=== PATIENT | female | born 1965 | race African-American/Black ===

== ENCOUNTER 2016-12-12 20:46 | Emergency (ER) | payer SELFPAY ==
[~2016-12-12] VITALS: Ht 160 cm; Wt 53.5 kg
[2016-12-12] MEDS ORDERED: METF500T4 PO (21:04)
[2016-12-12] MEDS ORDERED: MULT-301 PO (21:04)
[2016-12-12] MEDS ORDERED: LISI10TA2 PO (21:04)
[2016-12-12] MEDS ORDERED: INSU100V5 SQ (21:05)
[2016-12-12] MEDS ORDERED: ROPI1TAB2 PO (21:05)
[2016-12-12] MEDS ORDERED: KETOROLAC 30 MG/ML VIAL IM STA (21:25)
--- NOTE | 2016-12-12 21:25 | ED Lower Extremity ---
General Chief Complaint: Lower Extremity Stated Complaint: RT ANKLE PAIN Nursing Triage Note: c/o R ankle pain x 2 years Nursing Sepsis Screen: No Definite Risk Source: patient Exam Limitations: no limitations History of Present Illness Time seen by provider: 21:16 Initial Comments Patient presents with a history to years ago of having a fracture in her right ankle that was taken care of by Dr. Pagan. It healed well but since then she' s had some falls and this has caused her reinjury and some strain pain in her right ankle. 2 weeks ago she had damaged by x-ray by [facility] and was told there is no fracture. Since that time she's had 3 more falls were she feels that the ankle just gives out underneath her and she is having a lot of pain in her right ankle. She has a history of cocaine addiction is been off it for 35 days and is currently in rehabilitation. She is not asked for pain medicine but [facility] that she would not be allowed to have anymore ibuprofen or Tylenol because they thought she was taking too much of it in combination with her diabetes. Patient is consistent with taking her diabetic medicines. She is not sure A1c is. She states she was taking 400 mg I will Profen twice a day and 650 mg Tylenol twice daily. She has never lasts consciousness nor struck her head. Allergies and Home Medications Allergies Coded Allergies: Penicillins (Verified Allergy, Unknown, 12/12/16) codeine (Verified Allergy, Unknown, 12/12/16) promethazine (Verified Allergy, Unknown, 12/12/16) Home Medications Insulin Determir 1,000 Units/10 Ml Soln, 15 UNITS SQ, (Reported) Lisinopril 10 Mg Tablet, 10 MG PO DAILY, (Reported) Metformin HCl 500 Mg Tablet, 500 MG PO BID, (Reported) Multivitamin 1 Each Tablet, 1 EACH PO, (Reported) Nitrofurantoin Monohyd/M-Cryst 100 Mg Capsule, 1 TAB PO BID for 7 Days, #14 Ref 0 Prescribed by: DOUGLAS GÓMEZ on 12/12/16 2400 Ropinirole HCl 1 Mg Tablet, 1 MG PO, (Reported) Constitutional: No chills, No fever, No malaise Respiratory: No cough, No short of breath Cardiovascular: No chest pain, No edema, No palpitations Gastrointestinal: No abdominal pain, No constipation, No diarrhea, No nausea Genitourinary: No dysuria, No frequency Musculoskeletal: see HPI, joint pain (right ankle), joint swelling (mild) Skin: No pruritus, No rash Past Sdbojqt-Mpggez-Pujpcj Hx Patient Social History Alcohol Use: Denies Use Recreational Drug Use: Yes Drug of Choice: CRACK COCAINE Smoking Status: Current Everyday Smoker Recent Foreign Travel: No Contact w/Someone Who Travel: No Recent Infectious Disease Expo: No Surgeries Surgeries: Breast, Hysterectomy, Orthopedic, Tubal Ligation Cardiovascular Cardiac Disorders: Hypertension Physical Exam Vital Signs Vital Sign - Last 12Hours 12/12/16 21:01 Temp 98.2 Pulse 111 Resp 18 B/P (MAP) 169/86 Pulse Ox 100 Capillary Refill : Less Than 3 Seconds General Appearance: WD/WN, no apparent distress HEENT: PERRL/EOMI, pharynx normal Legs: bilateral leg non-tender, bilateral leg normal inspection, bilateral leg normal range of motion, bilateral leg no evidence of injury Knees: bilateral knee non-tender, bilateral knee normal inspection, bilateral knee normal range of motion, bilateral knee no evidence of injury Ankles: left ankle non-tender, left ankle normal inspection, left ankle normal range of motion, left ankle no evidence of injury, right ankle bone tenderness ( lateral malleolus and anterior calcaneus), right ankle joint effusion (trace), right ankle limited range of motion (limited dorsiflexion secondary to pain), right ankle pain (described as aching), right ankle soft tissue tenderness, right ankle swelling (trace) Reflexes: 3+ knee (R), 3+ knee (L), 3+ ankle (R), 3+ ankle (L) Neurologic/Tendon: normal sensation, normal motor functions, normal tendon functions, responds to pain, no evidence tendon injury Neurologic/Psychiatric: alert, oriented x 3 Skin: normal color, warm/dry Lymphatic: no adenopathy Progress/Results/Core Measures Results/Orders Lab Results Laboratory Tests Test 12/12/16 21:51 12/12/16 22:25 Range/Units White Blood Count 6.5 4.3-11.0 10^3/uL Red Blood Count 3.15 L 4.35-5.85 10^6/uL Hemoglobin 9.9 L 11.5-16.0 G/DL Hematocrit 29 L 35-52 % Mean Corpuscular Volume 91 80-99 FL Mean Corpuscular Hemoglobin 31 25-34 PG Mean Corpuscular Hemoglobin Concent 34 32-36 G/DL Red Cell Distribution Width 12.4 10.0-14.5 % Platelet Count 291 130-400 10^3/uL Mean Platelet Volume 10.8 H 7.4-10.4 FL Sodium Level 139 135-145 MMOL/L Potassium Level 4.1 3.6-5.0 MMOL/L Chloride Level 106 98-107 MMOL/L Carbon Dioxide Level 24 21-32 MMOL/L Anion Gap 9 5-14 MMOL/L Blood Urea Nitrogen 25 H 7-18 MG/DL Creatinine 1.30 0.60-1.30 MG/DL Estimat Glomerular Filtration Rate 52 BUN/Creatinine Ratio 19 Glucose Level 322 H 70-105 MG/DL Calcium Level 9.1 8.5-10.1 MG/DL Urine Color YELLOW Urine Clarity SLIGHTLY CLOUDY Urine pH 6 5-9 Urine Specific [place] 1.015 L 1.016-1.022 Urine Protein 4+ NEGATIVE Urine Glucose (UA) 4+ H NEGATIVE Urine Ketones NEGATIVE NEGATIVE Urine Nitrite POSITIVE H NEGATIVE Urine Bilirubin NEGATIVE NEGATIVE Urine Urobilinogen NORMAL NORMAL MG/DL Urine Leukocyte Esterase 1+ H NEGATIVE Urine RBC (Auto) 2+ H NEGATIVE Urine RBC 0-2 /HPF Urine WBC 10-25 H /HPF Urine Squamous Epithelial Cells 2-5 /HPF Urine Crystals NONE /LPF Urine Bacteria LARGE H /HPF Urine Casts NONE /LPF Urine Mucus NEGATIVE /LPF Urine Culture Indicated YES My Orders Orders - RICO,DOUGLAS J Ankle, Right, 3 Views (12/12/16 21:09) Basic Metabolic Panel (12/12/16 21:25) Cbc No Diff (12/12/16 21:25) Ua Culture If Indicated (12/12/16 21:25) Ketorolac Injection (Toradol Injection) (12/12/16 21:25) Urine Culture (12/12/16 22:25) Vital Signs/I&O Vital Sign - Last 12Hours 12/12/16 12/12/16 21:01 23:31 Temp 98.2 98.2 Pulse 111 111 Resp 18 18 B/P (MAP) 169/86 Pulse Ox 100 100 Blood Pressure Mean: 113 Progress Note : Time: 23:11 Progress Note Sugars are elevated despite her diabetic control. This may contribute to her UTI which may be contributing to her falls. We'll encourage her to follow up with her PCP about that her blood sugar control as well as treat her UTI. Diagnostic Imaging Diagonstic Imaging: Xray Plain Films/CT/US/NM/MRI: ankle (r) Comments NAME: GODFREY ROBERSON [facility] REC#: [id number] PHYSICIAN: DOUGLAS GÓMEZ MD CC: AMADOR MORENO MD; DOUGLAS GÓMEZ Page 1 of 1 RADIOLOGY REPORT VIA [facility]. [place], [place] CC: AMADOR MORENO MD; DOUGLAS GÓMEZ Page 1 of 1 RADIOLOGY REPORT NAME: GODFREY ROBERSON [facility] REC#: [id number] PT STATUS: REG ER : 1965 PHYSICIAN: DOUGLAS GÓMEZ MD ADMIT DATE: 12/12/16/ER Signed Date of Exam: 12/12/16 ANKLE, RIGHT, 3 VIEWS INDICATION: Right ankle pain for the last 2 years. Fell 3 times EXAMINATION: Right ankle dated 12/12/2016 COMPARISONS: None FINDINGS: Three views of the ankle An old appearing fracture of the distal fibula is noted. This appears healed although a vague residual lucency is noted but chronic in appearance. Ankle mortise is intact, talar dome unremarkable. No definite acute fractures appreciated. IMPRESSION: 1. Diffuse chronic change. No acute process is appreciated. Dictated by: Dictated on workstation # [id number] Dict: 12/12/162211 Trans: 12/12/162243 Interpreted by: AMADOR MORENO MD Electronically signed by: AMADOR MORENO MD 12/12/164 Reviewed: Reviewed by Me Departure Impression Impression: Primary Impression: Contusion of ankle Qualified Codes: S90.01XD - Contusion of right ankle, subsequent encounter Additional Impression: UTI (urinary tract infection) Qualified Codes: N30.00 - Acute cystitis without hematuria Disposition: HOME, SELF-CARE Condition: Stable Departure-Patient Inst. Decision time for Depature: 23:12 Referrals: CHRIS BECKWITH APRN (PCP) Primary Care Physician Patient Instructions: Sprain (DC) Add. Discharge Instructions: You should wear your right ankle brace daily and apply ice to the area up to 4 times daily for 20 minutes every time that it hurts. You can also use Tylenol 1000 mg 3 times a day as needed for pain. I suggest the next 2 weeks that to use Naprosyn 2 tablets twice daily scheduled. You also have a urinary tract infection which is probably due to your uncontrolled diabetes. I will put on antibiotics for the next 7 days and then encourage to follow-up with her PCP to get the results of the urine culture in the next 2-3 days. You should also get her blood sugar under better control as this will probably make it very hard to heal wound or bite off a UTI. If you're having new's or worrisome symptoms such as high fevers, nausea vomiting, shortness of breath or chest pain you should return to the ER. All discharge instructions reviewed with patient and/or family. Voiced understanding. Scripts Nitrofurantoin Monohyd/M-Cryst (Macrobid 100 mg Capsule) 100 Mg Capsule 1 TAB PO BID for 7 Days, #14 CAP 0 Refills Prov: DOUGLAS GÓMEZ 12/12/16 Copy Copies To 1: MAJO GRANADOS DO DOUGLAS GÓMEZ Dec 12, 2016 21:25
[2016-12-12 22:02] LABS: MEAN PLATELET VOLUME 10.8 FL (7.4-10.4); RED BLOOD COUNT 3.15 10^6/uL (4.35-5.85); RED CELL DISTRIBUTION WIDTH 12.4 % (10.0-14.5); WHITE BLOOD COUNT 6.5 10^3/uL (4.3-11.0)
--- NOTE | 2016-12-12 22:17 | Diagnostic Imaging Report ---
INDICATION: Right ankle pain for the last 2 years. Fell 3 times EXAMINATION: Right ankle dated 12/12/2016 COMPARISONS: None FINDINGS: Three views of the ankle An old appearing fracture of the distal fibula is noted. This appears healed although a vague residual lucency is noted but chronic in appearance. Ankle mortise is intact, talar dome unremarkable. No definite acute fractures appreciated. IMPRESSION: 1. Diffuse chronic change. No acute process is appreciated. Dictated by: Dictated on workstation # [id number]
[2016-12-12 22:18] LABS: CALCIUM 9.1 MG/DL (8.5-10.1); CREATININE SERUM 1.3 MG/DL (0.60-1.30); POTASSIUM 4.1 MMOL/L (3.6-5.0)
[2016-12-12 22:29] LABS: BILIRUBIN,URINE NEGATIVE (NEGATIVE); KETONES,URINE NEGATIVE (NEGATIVE); LEUKOCYTE ESTERASE ,URINE 1+ (NEGATIVE); NITRITE,URINE POSITIVE (NEGATIVE); PH,URINE 6 (5-9); PROTEIN,URINE 4+ (NEGATIVE); UROBILINOGEN,URINE NORMAL (NORMAL)
[2016-12-12] MEDS ORDERED: NITR-65 PO (23:21)
[2016-12-12 23:31] VITALS: BP 169/86
--- OUTSIDE RECORDS SUMMARY | 2016-12-17 04:55 | XMS REPORT ---
Author CHRIS Peterson [facility] eClinicalWorks Address Unknown Phone Unavailable Care Team Providers Care Lifestyle Block Farmer Name Role Phone CHRIS BECKWITH Unavailable Allergies No Known Allergies Problems Problem Type Condition Code Onset Dates Condition Status Problem Diabetes E11.9 Active Problem Diabetic neuropathy E11.40 Active Problem Dysuria R30.0 Active Problem Anemia D64.9 Active Problem Anxiety F41.9 Active Medications Medication Code System Code Instructions Start Date End Date Status Dosage [place] [facility] 8396-022387 31G X 6 MM Once a day Apr 26, 2016 as directed Results No Known Results Summary Purpose eClinicalWorks Submission
--- OUTSIDE RECORDS SUMMARY | 2016-12-17 04:55 | XMS REPORT ---
Author ROSA M Dietrich [facility] eClinicalWorks Address Unknown Phone Unavailable Care Team Providers Care Events Assistant Name Role Phone ROSA M RIBEIRO Unavailable Allergies, Adverse Reactions, Alerts Substance Reaction Event Type Phenergan nausea Drug Allergy Penicillin V Potassium nausea Drug Allergy Problems Problem Type Condition Code Onset Dates Condition Status Assessment Obstructive chronic bronchitis with acute exacerbation J44.1 Active Assessment Herpes zoster without complication B02.9 Active Problem Diabetes type 2, uncontrolled 250.02 Active Assessment [place] N91.2 Active Medications Medication Code System Code Instructions Start Date End Date Status Dosage Ropinirole HCl [facility] [address]-38 1 MG Orally Once a day 1 tablet 1 to 3 hours before bedtime Ferrous Sulfate [facility] [address]-42 325 (65 Fe) MG Orally Once a day for 7 days, then 2 times daily for 7 days, then 3 times daily as tolerated Mar 22, 2015 1 tablet Lisinopril [facility] [address]-29 10 MG Orally Once a day 1 tablet Simvastatin [facility] [address]-92 20 MG Orally Once a day 1 tablet in the evening Azithromycin [facility] [address]-31 250 MG Orally Once a day for 5 days Mar 22, 2015 2 tablets on the first day, then 1 tablet daily for 4 days Tramadol HCl [facility] [address]-52 50 MG Orally every 6 hrs 1 tablet as needed Acyclovir [facility] [address]-65 800 MG Orally Five times a day for 10 days Mar 22, 2015 1 tablet Latanoprost [facility] [address]-44 0.005 % Ophthalmic Once a day 1 drop into affected eye in the evening Lyrica [facility] [address]-02 100 MG Orally Twice a day 1 capsule Metformin HCl [facility] [address]-22 500 MG Orally Twice a day 1 tablet with meals Mucinex [facility] [address]-57 600 MG Orally every 12 hrs Mar 22, 2015 1 tablet as needed Procedures Procedure Coding System Code Date Office Visit, Est Pt., Level 4 CPT-4 43935 Mar 22, 2015 MEASURE BLOOD OXYGEN LEVEL CPT-4 65273 Mar 22, 2015 Vital Signs Date/Time: Mar 22, 2015 Temperature 97.6 F Weight 144.50 lbs Height 63.50 in Oximetry 99 % Blood Pressure Diastolic 90 mmHg Blood Pressure Systolic 140 mmHg Cardiac Monitoring Heart Rate 98 bpm BMI 25.19 Index Results No Known Results Summary Purpose eClinicalWorks Submission
--- OUTSIDE RECORDS SUMMARY | 2016-12-17 04:55 | XMS REPORT ---
Author ROSA M Dietrich [facility] eClinicalWorks Address Unknown Phone Unavailable Care Team Providers Care Cushion Maker Hand Name Role Phone ROSA M RIBEIRO Unavailable Allergies, Adverse Reactions, Alerts Substance Reaction Event Type Phenergan nausea Drug Allergy Penicillin V Potassium nausea Drug Allergy Problems Problem Type Condition Code Onset Dates Condition Status Assessment Bilateral low back pain without sciatica M54.5 Active Assessment [place]re[place] Z63.4 Active Problem Diabetes type 2, uncontrolled 250.02 Active Medications Medication Code System Code Instructions Start Date End Date Status Dosage Mucinex [facility] [address]-70 600 MG Orally every 12 hrs Mar 22, 2015 1 tablet as needed HydrOXYzine HCl [facility] [address]-21 25 MG Orally every 8 hrs Mar 23, 2015 1 tablet as needed Lyrica [facility] [address]-24 100 MG Orally Twice a day 1 capsule Cymbalta [facility] [address]-26 20 MG Orally Once a day Mar 23, 2015 1 capsule Azithromycin [facility] [address]-67 250 MG Orally Once a day for 5 days Mar 22, 2015 2 tablets on the first day, then 1 tablet daily for 4 days Metformin HCl [facility] [address]-24 500 MG Orally Twice a day 1 tablet with meals Lisinopril [facility] [address]-34 10 MG Orally Once a day 1 tablet Mobic [facility] [address]-88 7.5 MG Orally 2 times a day Mar 23, 2015 1 tablet Ropinirole HCl [facility] [address]-74 1 MG Orally Once a day 1 tablet 1 to 3 hours before bedtime Simvastatin [facility] [address]-55 20 MG Orally Once a day 1 tablet in the evening Ferrous Sulfate [facility] [address]-43 325 (65 Fe) MG Orally Once a day for 7 days, then 2 times daily for 7 days, then 3 times daily as tolerated Mar 22, 2015 1 tablet Acyclovir [facility] [address]-61 800 MG Orally Five times a day for 10 days Mar 22, 2015 1 tablet Latanoprost [facility] [address]-69 0.005 % Ophthalmic Once a day 1 drop into affected eye in the evening Procedures Procedure Coding System Code Date Office Visit, Est Pt., Level 3 CPT-4 07631 Mar 23, 2015 Vital Signs Date/Time: Mar 23, 2015 Temperature 98.9 F Weight 146 lbs Height 63.50 in BMI 25.45 Index Blood Pressure Diastolic 88 mmHg Blood Pressure Systolic 140 mmHg Cardiac Monitoring Heart Rate 118 bpm Results No Known Results Summary Purpose eClinicalWorks Submission
--- OUTSIDE RECORDS SUMMARY | 2016-12-17 04:56 | XMS REPORT ---
Author ROSA M Dietrich [facility] eClinicalWorks Address Unknown Phone Unavailable Care Team Providers Care Robotics Testing Technician Name Role Phone ROSA M RIBEIRO Unavailable Allergies, Adverse Reactions, Alerts Substance Reaction Event Type Phenergan nausea Drug Allergy Penicillin V Potassium nausea Drug Allergy Problems Problem Type Condition Code Onset Dates Condition Status Assessment Diabetic neuropathy E11.40 Active Problem Diabetic neuropathy E11.40 Active Problem Anemia D64.9 Active Problem Diabetes E11.9 Active Assessment Anxiety F41.9 Active Assessment Diabetes E11.9 Active Problem Anxiety F41.9 Active Assessment Anemia D64.9 Active Medications Medication Code System Code Instructions Start Date End Date Status Dosage Latanoprost [facility] [address]-22 0.005 % Ophthalmic Once a day 1 drop into affected eye in the evening Accu-Chek Jennifer [facility] [address]-57 1 Pack In Vitro 3 times a day Apr 25, 2015 glucose testing Metformin HCl [facility] [address]-68 1000 MG Orally Twice a day 1 tablet with meals Ropinirole HCl [facility] [address]-53 1 MG Orally Once a day 1 tablet 1 to 3 hours before bedtime Lyrica [facility] [address]-98 100 MG Orally Twice a day [address] [facility] [address]-39 100 UNIT/ML Subcutaneous Once a day at night Apr 25, 2015 10 units Simvastatin [facility] [address]-62 20 MG Orally Once a day 1 tablet in the evening HydrOXYzine HCl [facility] 51649630332 25 MG Orally every 8 hrs 1 tablet as needed Naproxen [facility] [address]-96 500 MG Orally every 12 hrs as needed for the pain Apr 06, 2015 1 tablet as needed Accu-Chek Jennifer [facility] [address]-18 1 Pack Apr 25, 2015 one device Gabapentin [facility] [address]-31 100 MG Orally Three times a day Apr 25, 2015 1 capsule Lisinopril [facility] [address]-51 10 MG Orally Once a day 1 tablet Ferrous Sulfate [facility] [address]-59 325 (65 Fe) MG Orally Twice a day x 7 days then three times daily if tolerated Mar 22, 2015 1 tablet Procedures Procedure Coding System Code Date Office Visit, Est Pt., Level 3 CPT-4 92244 Apr 25, 2015 FOOT EXAM PERFORMED CPT-4 2028F Apr 25, 2015 GLYCATED HEMOGLOBIN TEST CPT-4 75879 Apr 25, 2015 Vital Signs Date/Time: Apr 25, 2015 Temperature 96.5 F Weight 148 lbs Height 63.50 in BMI 25.80 Index Blood Pressure Diastolic 84 mmHg Blood Pressure Systolic 140 mmHg Cardiac Monitoring Heart Rate 102 bpm Results Name Result Date Reference Range Unit Abnormality Flag A1C (IN HOUSE) Summary Purpose eClinicalWorks Submission
--- OUTSIDE RECORDS SUMMARY | 2016-12-17 04:56 | XMS REPORT ---
Author Author MENDEZ DEGROOT Organization eClinicalWorks Address Unknown Phone Unavailable Care Team Providers Care Thread Inspector Name Role Phone MENDEZ DEGROOT Unavailable Allergies No Known Allergies Problems Problem Type Condition Code Onset Dates Condition Status Problem Diabetic neuropathy E11.40 Active Problem Anemia D64.9 Active Problem Diabetes E11.9 Active Problem Anxiety F41.9 Active Medications No Known Medications Results No Known Results Summary Purpose eClinicalWorks Submission
--- OUTSIDE RECORDS SUMMARY | 2016-12-17 04:56 | XMS REPORT ---
Author Author CHRIS BECKWITH [facility] Address [address] [place] [address] Care Team Providers Care Powerhouse Tender Name Role Phone CHRIS BECKWITH Unavailable PROBLEMS Type Condition ICD9-CM Code YWO33-TP Code Onset Dates Condition Status SNOMED Code Assessment Vaginal discharge N89.8 Apr, Active 301831380 Problem Dysuria R30.0 Active 31366732 Problem Diabetes E11.9 Active 75801373 Problem Anxiety F41.9 Active 28303640 Assessment Diabetes E11.9 Apr, Active 890051864 Problem Diabetic neuropathy E11.40 Active 880500717 Problem Anemia D64.9 Active 076617025 ALLERGIES Substance Reaction Event Type Date Status Phenergan nausea Drug Allergy Apr, Active Penicillin V Potassium nausea Drug Allergy Apr, Active SOCIAL HISTORY No smoking Hx information available PLAN OF CARE VITAL SIGNS Height 63.50 in 2016-04-22 Weight 138.8 lbs 2016-04-22 Heart Rate 86 bpm 2016-04-22 Respiratory Rate 18 2016-04-22 BMI 24.20 kg/m2 2016-04-22 Blood pressure systolic 130 mmHg 2016-04-22 Blood pressure diastolic 80 mmHg 2016-04-22 MEDICATIONS Medication Instructions Dosage Frequency Start Date End Date Duration Status Flagyl 500 MG Orally x1 4 tablets Apr, 1 dose Active Meloxicam 15 MG TAKE 1/2 TABLET (7.5MG) BY MOUTH TWICE DAILY 0 Active Lantus 100 UNIT/ML Subcutaneous Once a day at night 15 units Active Ferrous Sulfate 325 (65 Fe) MG Orally 3 times a day 1 tablet 8h Active Lisinopril 10 mg Orally Once a day 1 tablet 24h Active Ropinirole HCl 1 MG 1 tablet 1 to 3 hours before bedtime 30 days Active Naproxen 500 MG Orally every 12 hrs as needed for the pain 1 tablet as needed Mar, Active HydrOXYzine HCl 25 MG TAKE ONE TABLET BY MOUTH EVERY 8 HOURS NEEDED 0 Active Simvastatin 20 mg Orally Once a day 1 tablet in the evening 24h Active MetFORMIN HCl ER 500 MG Orally 2 times a day 2 tablet 12h Apr, 30 day(s) Active Accu-Chek Jennifer 1 Pack one device Active RESULTS Name Result Date Reference Range A1C (IN HOUSE) 2016-04-22 A1C IN HOUSE 13.1 4.3 - 5.6 % Previous A1c 11.2 Lot [id number] Exp date 01/2018 MICROALBUMIN, URINE (IN HOUSE) 2016-04-22 MICROALBUMIN high adnormal Lot # [id number] Exp date 02/2017 Clarity cloudy Color yellow ALB 150mg/L CRE 50mg/dL A:C (IN HOUSE) >300mg/g Control Control Lot # Exp TRICHOMONAS (IN HOUSE) 2016-04-22 TRICHOMONAS positive Control Lot # [id number] Exp date 12/2016 UA LONG DIP (IN HOUSE) 2016-04-22 Lot # [id number] Exp date 01/2017 Clarity cloudy Color yellow Odor GLU >1000 mg/dL AVERY KET Negative SG 1.010 BLO Large pH 6.0 Protein 30mg/dL URO NIT Negative ITALIA Trace Lot # Exp BACTERIAL VAGINOSIS (IN HOUSE) 2016-04-22 RESULTS POSITIVE Control Lot # [id number] Exp date 02/2019 MICROALBUMIN/CREATININE RATIO, URINE 2016-04-22 Creatinine, Urine 33.7 Not Estab. Microalbumin, Urine 194.5 Not Estab. Microalb/Creat Ratio 577.2 0.0-30.0 CULTURE, GENITAL 2016-04-22 Genital Culture, Routine Preliminary report Result 1 PAP TEST W/ HPV REGARDLESS 2016-04-22 Test ordered: DIAGNOSIS: Recommendation: Specimen adequacy: Source: Clinical history: Amended report: Additional comment: Addendum: Maturation index: Performed by: QC reviewed by: Diagnosis provided by: Electronically signed by: Special procedure: QA comment: . Note: HPV, high-risk Negative Negative CULTURE, GENITAL 2016-04-22 Genital Culture, Routine Final report Result 1 PDF Report 2016-04-22 PDF Report1 LC PAP TEST W/ HPV REGARDLESS 2016-04-22 DIAGNOSIS: Specimen adequacy: Clinician provided ICD10: Performed by: Electronically signed by: . . Pathologist provided ICD10: Note: HPV, high-risk Negative Negative PROCEDURES Procedure Date Ordered Related Diagnosis Body Site GLYCATED HEMOGLOBIN TEST Apr 22, 2016 MICROALBUMIN, SEMIQUANT Apr 22, 2016 Office Visit, Est Pt., Level 4 Apr 22, 2016 VARGAS VAG, DNA, DIR PROBE Apr 22, 2016 SPECIMEN HANDLING Apr 22, 2016 URINALYSIS, AUTO, W/O SCOPE Apr 22, 2016 No Charge Apr 22, 2016 LAB NOT BILLED BY [facility] Apr 22, 2016 IMMUNIZATIONS No Known Immunizations
--- OUTSIDE RECORDS SUMMARY | 2016-12-17 04:56 | XMS REPORT ---
Author Ronnie Salas [facility] Address [address] [place] [id number] Care Team Providers Care Manual Winder Name Role Phone Ronnie Tom PCP Unavailable Allergies and Adverse Reactions Name Reaction Notes Phenergan PENICILLINS codeine sulfate Plan of Treatment Planned Activity Comments Planned Date Planned Time Plan/Goal THER/PROPH/DIAG INJ SC/IM 10/23/2011 12:00 AM GLYCOSYLATED HEMOGLOBIN TEST 04/28/2013 12:00 AM MICROALBUMIN QUANTITATIVE 04/28/2013 12:00 AM COMPLETE CBC W/AUTO DIFF WBC 07/29/2013 12:00 AM DRUG SCREEN CLASS LIST A 09/15/2014 12:00 AM Medications Active Name Start Date Estimated Completion Date SIG Comments lisinopril 10 mg oral tablet 04/08/2013 take 1 tablet (10 mg) by oral route once daily Pen Needle 31 gauge x 1/4" miscellaneous needle 07/12/2013 use once a day with Lantus Lantus Solostar 100 unit/mL (3 mL) subcutaneous insulin pen 07/29/2013 inject 15 units by subcutaneous route once a day [facility] Blood Glucose System miscellaneous strip 07/30/2013 Test Glucose once a day. Dx:250.000 lisinopril 10 mg oral tablet 08/21/2013 TAKE ONE TABLET BY MOUTH ONCE DAILY famciclovir 500 mg oral tablet 09/24/2013 TAKE 1 TABLET BY MOUTH EVERY 8 HOURS FOR 7 DAYS simvastatin 20 mg oral tablet 11/13/2013 TAKE 1 TABLET BY MOUTH DAILY IN THE EVENING famciclovir 500 mg oral tablet 12/15/2013 TAKE 1 TABLET BY MOUTH EVERY 8 HOURS FOR 7 DAYS famciclovir 500 mg oral tablet 02/08/2014 TAKE 1 TABLET BY MOUTH EVERY 8 HOURS FOR 7 DAYS lisinopril 10 mg oral tablet 03/03/2014 TAKE ONE TABLET BY MOUTH ONCE DAILY metformin 500 mg oral tablet 05/19/2014 TAKE 1 TABLET BY MOUTH EVERY MORNING AND 2 TABLETS IN THE EVENING gabapentin 100 mg oral capsule 07/06/2014 TAKE 2 TABLETS BY MOUTH TWICE DAILY amitriptyline 10 mg oral tablet 03/27/2015 take 2 tablets (20 mg) by oral route at bedtime simvastatin 20 mg oral tablet 05/26/2015 TAKE 1 TABLET BY MOUTH DAILY IN THE EVENING ropinirole 1 mg oral tablet 05/26/2015 TAKE 1 TABLET BY MOUTH 1 TO 3 HOURS BEFORE BEDTIME lisinopril 10 mg oral tablet 05/26/2015 TAKE 1 TABLET BY MOUTH ONCE DAILY metformin 500 mg oral tablet 05/30/2015 TAKE 1 TABLET BY MOUTH EVERY MORNING AND 2 TABLETS IN THE EVENING ferrous sulfate 325 mg (65 mg iron) oral tablet take 1 tablet by oral route 3 times a day for 30 days hydroxyzine HCl 25 mg oral tablet take 1 tablet (25 mg) by oral route 4 times per day as needed for 30 days metformin 1,000 mg oral tablet take 1 tablet (1,000 mg) by oral route 2 times per day with morning and evening meals for 30 days Name Start Date Expiration Date SIG Comments Diflucan 150 mg oral tablet 09/07/2009 09/10/2009 take 1 tablet (150 mg) by oral route once Xyzal 5 mg oral tablet 09/07/2009 09/14/2009 take 1 tablet (5 mg) by oral route once daily Valtrex 1 gram oral tablet 01/15/2010 01/22/2010 take 1 tablet (1,000 mg) by oral route every 8 hours for 7 days Bactrim DS 800-160 mg oral tablet 01/15/2010 01/22/2010 take 1 tablet by oral route every 12 hours for 7 days Bactrim DS 800-160 mg oral tablet 04/24/2011 05/01/2011 take 1 tablet by oral route 2 times per day for 7 days diclofenac sodium 75 mg oral tablet,delayed release (DR/EC) 05/16/20112011 take 1 tablet (75 mg) by oral route 2 times per day with food Bactrim DS 800-160 mg oral tablet 03/18/2012 03/25/2012 take 1 tablet by oral route every 12 hours for 7 days Actos 45 mg oral tablet 04/13/2012 04/13/2012 take 1 tablet (45 mg) by oral route once daily gabapentin 100 mg oral capsule 04/13/2012 04/13/2012 take 1 capsule (100 mg) by oral route 3 times a day glimepiride 4 mg oral tablet 04/13/2012 04/13/2012 take 1 tablet (4 mg) by oral route once daily paroxetine HCl 20 mg oral tablet 04/13/2012 04/13/2012 take 1 tablet (20 mg) by oral route once daily hydrocodone-acetaminophen 10-325 mg oral tablet 08/26/2012 09/05/2012 TAKE ONE TABLET BY MOUTH EVERY 4 HOURS NEEDED FOR PAIN Bactrim DS 800-160 mg oral tablet 12/01/2012 12/08/2012 take 1 tablet by oral route every 12 hours for 7 days hydrocodone-acetaminophen 10-325 mg oral tablet 05/03/2013 05/13/2013 TAKE ONE TABLET BY MOUTH EVERY 4 HOURS NEEDED FOR PAIN Zithromax Z-Fadi 250 mg oral tablet 06/03/2013 06/08/2013 take 2 tablets ( 500 mg) by oral route once daily for 1 day then 1 tablet (250 mg) by oral route once daily for 4 days simvastatin 20 mg oral tablet 07/14/2013 10/12/2013 take 1 tablet (20 mg) by oral route once daily in the evening metformin 500 mg oral tablet 08/27/2013 02/23/2014 take 1 tablet (500 mg) by oral route with morning and 2 tablets with evening meal famciclovir 500 mg oral tablet 08/27/2013 09/03/2013 take 1 tablet (500 mg) by oral route every 8 hours for 7 days ketoconazole 2 % topical cream 11/09/2013 02/01/2014 apply to the affected area (s) by topical route once daily for 6 weeks Neupro 1 mg/24 hour transdermal patch 24 hour 02/10/2014 02/24/2014 apply 1 patch (1 mg) by transdermal route once daily . Do not apply to same area more than once every 14 days. for 14 days ropinirole 1 mg oral tablet 03/03/2014 06/01/2014 take 1 tablet (1 mg) by oral route 1-3 hours before bedtime for 30 days hydrocodone-acetaminophen 10-325 mg oral tablet 09/01/2014 09/21/2014 take 1 tablet by oral route every 8 hours as needed for pain. Use sparingly! Lyrica 100 mg oral capsule 05/15/2015 08/13/2015 take 1 capsule (100 mg) by oral route 2 times a day Discontinued Name Start Date Discontinued Date SIG Comments citalopram 20 mg oral tablet 06/19/2009 02/01/2011 TAKE 1 TABLET BY MOUTH DAILY taking citalopram metformin 500 mg oral tablet 08/07/2009 take 1 tablet (500 mg) by oral route once daily no longer taking since changed to Actosplus Met fexofenadine 60 mg oral tablet 07/06/2009 10/09/2010 take 1 tablet (60 mg) by oral route in the morning Levaquin 500 mg oral tablet 07/18/2009 07/18/2009 take 1 tablet (500 mg) by oral route once daily for 7 days Cortisporin-TC 3.3-3-10-0.5 mg/mL otic drops,suspension 07/18/2009 07/18/2009 instill in affected ear 4 drops by otic route 4 times a day Antibiotic Ear 3.5-10,000-1 mg/mL-unit/mL-% otic drops,suspension 07/18/200910/09/2010 instill 4 drops into affected ear(s) by otic route every 8 hours Flexeril 10 mg oral tablet 07/25/2009 10/09/2010 take 1 tablet (10 mg) by oral route at bedtime Actoplus MET 15-850 mg oral tablet 09/07/2009 04/10/2011 take 1 tablet by oral route 2 times per day for 28 days "not taking" Victoza 09/07/2009 10/09/2010 .6 mg by subcutaneous route daily for 1 week then 1.2 mg by subcutaneous route daily no longer taking Amaryl 4 mg oral tablet 01/04/2010 02/01/2011 take 1 tablet (4 mg) by oral route twice a day pt. stopped due to blood sugar running low salicylic acid 6 % topical cream 12/27/2010 02/01/2011 apply to the affected area(s) by topical route once daily at bedtime and cover carisoprodol 350 mg oral tablet 02/01/2011 05/16/2011 take 1 tablet by oral route 3 times a day as needed "not taking" Cymbalta 30 mg oral capsule,delayed release(DR/EC) 02/01/2011 04/10/2011 take 1 capsule (60 mg) by oral route once daily in the evening "not taking" gabapentin 100 mg oral capsule 02/01/2011 05/16/2011 take 1 capsules (100 mg) by oral route 2 times per day "not taking" citalopram 10 mg oral tablet 04/10/2011 05/16/2011 take 1 tablet (10 mg) by oral route once daily "not taking" ondansetron 4 mg oral tablet,disintegrating 04/10/2011 05/16/2011 dissolve 1 tablet by oral route 2 times a day methocarbamol 500 mg oral tablet 04/10/2011 05/16/2011 take 1 tablet by oral route 3 times a day as needed "did not get this medication" glimepiride 1 mg oral tablet 05/16/2011 12/03/2011 take 1 tablet (1 mg) by oral route once daily for 30 days "did not refill" Actoplus MET 15-850 mg oral tablet 05/16/2011 01/06/2012 take 1 tablet by oral route once daily for 30 days Diarrhea cyclobenzaprine 10 mg oral tablet 05/16/2011 10/23/2011 take 1 tablet by oral route once a day (at bedtime) as needed Nucynta 75 mg oral tablet 05/23/2011 10/23/2011 take 1 tablet (75 mg) by oral route every 6 hours as needed Lortab 7.5-500 mg oral tablet 08/08/2011 09/05/2011 take 1 tablet by oral route every 4-6 hours as needed for pain Changing to 10/325 citalopram 20 mg oral tablet 08/22/2011 10/23/2011 take 1 tablet (20 mg) by oral route once daily bupropion HCl 150 mg oral tablet extended release 09/03/2011 10/23/2011 take 1 tablet (150 mg) by oral route once daily hydrocodone-acetaminophen 10-325 mg oral tablet 09/05/2011 10/23/2011 take 1 tablet by oral route every 4 hours as needed for pain Paxil 20 mg oral tablet 10/23/2011 12/03/2011 take 1 tablet (20 mg) by oral route once daily for 30 days "finished prescription" Flagyl 500 mg oral tablet 12/03/2011 01/06/2012 take 1 tablet (500 mg) by oral route 2 times per day Aleve Oral 07/29/2013 Zofran (as hydrochloride) 4 mg oral tablet 03/31/2013 03/31/2013 take 1 tablet by mouth q6 hours prn Levaquin 500 mg oral tablet 04/08/2013 04/28/2013 take 1 tablet by oral route daily metformin 850 mg oral tablet 04/08/2013 07/12/2013 take 1 tablet by oral route 2 times a day Diarrhea polyethylene glycol 3350 17 gram/dose oral powder 04/08/2013 11/03/2013 take 17 gram mixed with 8 oz. water, juice, soda, coffee or tea by oral route once daily cefpodoxime 200 mg oral tablet 04/08/2013 04/08/2013 take 1 tablet (200 mg) by oral route every 12 hours with food Too expensive Neurontin 100 mg oral capsule 06/18/2013 07/12/2013 take 2 capsules by oral route 2 times a day Problem List Description Status Onset Diabetes Mellitus, Type II Active Hyperlipidemia Active lumbar back pain Active Cocaine dependence Active Vital Signs Date Time BP-Sys(mm[Hg] BP-Mariana(mm[Hg]) HR(bpm) RR(rpm) Temp WT HT HC BMI BSA BMI Percentile O2 Sat(%) 10/18/2015 10:29:00 AM 108 mmHg 60 mmHg 92 bpm 14 rpm 96.6 F 128.5 lbs 63.5 in 22.41 kg/m2 1.62 m2 100 % 09/15/2014 10:18:00 AM 132 mmHg 76 mmHg 80 bpm 20 rpm 98.1 F 146 lbs 63.5 in 25.4568 kg/m 1.7225 m 100 % 07/06/2014 9:08:00 AM 130 mmHg 78 mmHg 92 bpm 20 rpm 97.8 F 148 lbs 63.5 in 25.81 kg/m2 1.73 m2 98 % 02/10/2014 9:08:00 AM 130 mmHg 90 mmHg 106 bpm 18 rpm 97.8 F 142.375 lbs 63.5 in 24.8247 kg/m 1.701 m 100 % 12/28/2013 9:47:00 AM 128 mmHg 80 mmHg 112 bpm 18 rpm 98.1 F 137 lbs 63.5 in 23.89 kg/m2 1.67 m2 99 % 11/03/2013 10:02:00 AM 122 mmHg 62 mmHg 113 bpm 20 rpm 98.3 F 124 lbs 63.5 in 21.6208 kg/m 1.5874 m 100 % 08/27/2013 9:57:00 AM 124 mmHg 60 mmHg 114 bpm 20 rpm 97.6 F 122 lbs 63.5 in 21.27 kg/m2 1.57 m2 100 % 07/29/2013 2:36:00 PM 102 mmHg 60 mmHg 113 bpm 18 rpm 97 F 120 lbs 63.5 in 20.9234 kg/m 1.5616 m 100 % 07/12/2013 3:50:00 PM 126 mmHg 76 mmHg 109 bpm 18 rpm 98 F 119 lbs 63.5 in 20.75 kg/m2 1.56 m2 100 % 04/28/2013 9:45:00 AM 148 mmHg 78 mmHg 95 bpm 20 rpm 98.1 F 120 lbs 63.5 in 20.9234 kg/m 1.5616 m 100 % 04/14/2013 9:28:00 AM 134 mmHg 78 mmHg 103 bpm 24 rpm 98.1 F 120 lbs 63.5 in 20.92 kg/m2 1.56 m2 100 % 03/31/2013 2:58:00 PM 124 mmHg 72 mmHg 111 bpm 18 rpm 99.7 F 124.25 lbs 63.5 in 21.6644 kg/m 1.589 m 100 % 12/01/2012 8:21:00 AM 128 mmHg 68 mmHg 100 bpm 18 rpm 97.7 F 126.125 lbs 63.5 in 21.99 kg/m2 1.60 m2 100 % 03/18/2012 9:32:00 AM 115 mmHg 80 mmHg 90 bpm 18 rpm 97.5 F 143 lbs 63.5 in 24.9337 kg/m 1.7047 m 98 % 01/06/2012 8:19:00 AM 132 mmHg 68 mmHg 62 bpm 18 rpm 98.2 F 129 lbs 63.5 in 22.49 kg/m2 1.62 m2 01/02/2012 10:20:00 AM 110 mmHg 70 mmHg 96 bpm 18 rpm 96.8 F 132.375 lbs 63.5 in 23.0811 kg/m 1.6402 m 96 % 12/03/2011 2:12:00 PM 120 mmHg 68 mmHg 70 bpm 18 rpm 98.2 F 128 lbs 63.5 in 22.32 kg/m2 1.61 m2 10/23/2011 3:58:00 PM 110 mmHg 70 mmHg 125 bpm 18 rpm 97.2 F 134 lbs 98 % 05/28/2011 9:00:00 AM 110 mmHg 68 mmHg 120 bpm 16 rpm 97.1 F 133 lbs 63.5 in 23.19 kg/m2 1.64 m2 100 % 05/16/2011 9:13:00 AM 132 mmHg 80 mmHg 76 bpm 18 rpm 98.2 F 130 lbs 63.5 in 22.667 kg/m 1.6254 m 04/10/2011 9:58:00 AM 132 mmHg 76 mmHg 72 bpm 18 rpm 98.2 F 125 lbs 63.5 in 21.80 kg/m2 1.59 m2 02/01/2011 9:57:00 AM 126 mmHg 70 mmHg 70 bpm 18 rpm 98.2 F 130 lbs 63.5 in 22.667 kg/m 1.6254 m 12/27/2010 11:18:00 AM 124 mmHg 80 mmHg 108 bpm 20 rpm 97.1 F 133.187 lbs 63.5 in 23.22 kg/m2 1.65 m2 98 % 10/09/2010 1:28:00 PM 130 mmHg 74 mmHg 70 bpm 16 rpm 98.2 F 147 lbs 01/15/2010 1:55:00 PM 112 mmHg 70 mmHg 64 bpm 16 rpm 97.6 F 159.375 lbs 09/07/2009 8:53:00 AM 130 mmHg 72 mmHg 78 bpm 20 rpm 98 F 153 lbs 63.5 in 26.6773 kg/m 1.7633 m 08/07/2009 11:33:00 AM 134 mmHg 76 mmHg 66 bpm 18 rpm 97.1 F 158 lbs 07/18/2009 8:41:00 AM 126 mmHg 76 mmHg 80 bpm 22 rpm 98 F 166 lbs 07/06/2009 8:18:00 AM 140 mmHg 90 mmHg 70 bpm 20 rpm 97.1 F 170.5 lbs 63.5 in 29.73 kg/m2 1.86 m2 Social History Name Description Comments Tobacco Smoker, current status unknown No Alcohol Use Cocaine History of Procedures Date Ordered Description Order Status 07/18/2009 12:00 AM CYTOPATH C/V THIN LAYER Reviewed 07/26/2009 12:00 AM MAMMOGRAM SCREENING Reviewed 04/10/2011 12:00 AM GLYCOSYLATED HEMOGLOBIN TEST Reviewed 04/10/2011 12:00 AM CULTURE OTHR SPECIMN AEROBIC Reviewed 05/16/2011 12:00 AM MRI LUMBAR SPINE W/O DYE Reviewed 07/31/2009 12:00 AM METABOLIC PANEL TOTAL CA Reviewed 10/23/2011 12:00 AM COMPLETE CBC W/AUTO DIFF WBC Returned 10/23/2011 12:00 AM COMPREHEN METABOLIC PANEL Returned 10/23/2011 12:00 AM LIPID PANEL Returned 10/23/2011 12:00 AM GLYCOSYLATED HEMOGLOBIN TEST Returned 10/23/2011 12:00 AM ASSAY THYROID STIM HORMONE Returned 12/03/2011 12:00 AM MAMMOGRAM SCREENING Reviewed 12/03/2011 12:00 AM TISSUE EXAM FOR FUNGI Reviewed 01/02/2012 12:00 AM GLYCOSYLATED HEMOGLOBIN TEST Reviewed 12/01/2012 12:00 AM Culture-Wound Returned 03/31/2013 12:00 AM COMPLETE CBC W/AUTO DIFF WBC Returned 03/31/2013 12:00 AM COMPREHEN METABOLIC PANEL Returned 03/31/2013 12:00 AM ASSAY OF LIPASE Returned 03/31/2013 12:00 AM X-RAY EXAM OF ABDOMEN Returned 03/31/2013 12:00 AM URINALYSIS AUTO W/SCOPE Returned 04/14/2013 12:00 AM URINALYSIS AUTO W/SCOPE Reviewed 04/14/2013 12:00 AM METABOLIC PANEL TOTAL CA Reviewed 04/28/2013 12:00 AM MRI BRAIN STEM W/O DYE Reviewed 07/12/2013 12:00 AM COMPLETE CBC W/AUTO DIFF WBC Reviewed 07/12/2013 12:00 AM ASSAY THYROID STIM HORMONE Reviewed 07/12/2013 12:00 AM LIPID PANEL Reviewed 07/12/2013 12:00 AM GLYCOSYLATED HEMOGLOBIN TEST Reviewed 07/12/2013 12:00 AM COMPREHEN METABOLIC PANEL Reviewed 10/09/2010 12:00 AM MAMMOGRAM SCREENING Reviewed 07/06/2009 12:00 AM Decadron Inj. 8mg [facility] #[address]-55 Reviewed 07/06/2009 12:00 AM Depo-Medrol 80 mg IM [facility]# [address]-76 Reviewed 09/15/2014 2:34 PM URINALYSIS AUTO W/O SCOPE Reviewed 09/22/2014 12:00 AM COMPREHEN METABOLIC PANEL Reviewed 09/22/2014 12:00 AM GLYCOSYLATED HEMOGLOBIN TEST Reviewed 09/15/2014 12:00 AM MAMMOGRAM SCREENING Reviewed 09/26/2014 12:00 AM MAMMOGRAM BOTH BREASTS Reviewed Results Summary Data and Description Results 07/20/2009 10:36 PM Cholest Cry Stone Ql IR 0.0 %Colonoscopy-Women and Men over 50 Declined Mammogram -Women over 40 Ordered Pap Smear Collected Hgb A1c Fr Bld 0.0 %Dialated Eye Exam- Diabetic Referred Foot Exam-Diabetic Done 07/31/2009 3:28 PM GLUCOSE 655 SODIUM 135.0 mmol/LPOTASSIUM 4.30 mmol/ LCHLORIDE 98.0 mmol/LCO2 24.0 mmol/LBUN 12.0 mg/dLCREATININE 1.10 mg/dLCALCIUM 9.30 mg/dLeGFR 54 GLUCOSE 655 SODIUM 135.0 mmol/LPOTASSIUM 4.30 mmol/LCHLORIDE 98.0 mmol/LCO2 24.0 mmol/LBUN 12.0 mg/dLCREATININE 1.10 mg/dLCALCIUM 9.30 mg/ dLeGFR 54 10/24/2011 8:50 AM WBC 12.1 RBC 4.38 HGB 14.0 g/dLHCT 39.50 %MCV 90.0 fLMCH 32.0 pgMCHC 35.40 g/dLRDW CV 11.80 %MPV 11.70 fLPLT 281 %NEUT 78.30 %%LYMP 16.60 %%MONO 4.70 %%EOS 0.20 %%BASO 0.20 %#NEUT 9.51 #LYMP 2.01 #MONO 0.57 #EOS 0.02 #BASO 0.03 GLUCOSE 343.0 mg/dLSODIUM 136.0 mmol/LPOTASSIUM 3.90 mmol/ LCHLORIDE 98.0 mmol/LCO2 25.0 mmol/LBUN 19.0 mg/dLCREATININE 0.80 mg/dLSGOT/AST 15.0 IU/LSGPT/ALT 29.0 IU/LALK PHOS 115.0 IU/LTOTAL PROTEIN 7.10 g/dLALBUMIN 4.40 g/dLTOTAL BILI 0.50 mg/dLCALCIUM 10.0 mg/dLeGFR 60 TRIGLYCERIDES 65.0 mg/ dLCHOLESTEROL 279.0 mg/dLHDL 87.0 mg/dLLDL (CALC) 179.0 mg/dLTSH 0.40 uIU/mL 12/03/2011 4:09 PM WET PREP TRICH SEEN CLUE CELLS NONE SEEN 03/31/2013 3:35 PM WBC 17.3 RBC 4.17 HGB 13.0 g/dLHCT 36.80 %MCV 88.0 fLMCH 31.20 pgMCHC 35.30 g/dLRDW CV 11.80 %MPV 12.0 fLPLT 163 %NEUT 87.40 %%LYMP 2.70 %%MONO 9.60 %%EOS 0.20 %%BASO 0.10 %#NEUT 15.12 #LYMP 0.47 #MONO 1.67 #EOS 0.04 #BASO 0.02 COLOR YELLOW APPEARANCE CLEAR SPEC GRAV 1.010 pH 6.0 PROTEIN 30 GLUCOSE >=1000 KETONE 40 BILIRUBIN SMALL BLOOD MODERATE NITRITE NEGATIVE LEUK SCREEN NEGATIVE CASTS/LPF NEGATIVE CRYSTALS NEGATIVE MUCOUS THRDS 1+ BACTERIA FEW EPITH CELLS 1+ SQUAMOUS TRICHOMONAS NEGATIVE YEAST NEGATIVE LIPASE 20.0 U/ LGLUCOSE 501.0 mg/dLSODIUM 129.0 mmol/LPOTASSIUM 4.90 mmol/LCHLORIDE 92.0 mmol/ LCO2 19.0 mmol/LBUN 26.0 mg/dLCREATININE 1.40 mg/dLSGOT/AST 23.0 IU/LSGPT/ALT 54.0 IU/LALK PHOS 285.0 IU/LTOTAL PROTEIN 7.60 g/dLALBUMIN 3.40 g/dLTOTAL BILI 1.40 mg/dLCALCIUM 10.0 mg/dLeGFR 40 04/14/2013 11:30 AM GLUCOSE 168.0 mg/dLSODIUM 140.0 mmol/LPOTASSIUM 4.50 mmol/ LCHLORIDE 99.0 mmol/LCO2 27.0 mmol/LBUN 16.0 mg/dLCREATININE 0.80 mg/dLCALCIUM 9.20 mg/dLeGFR >60 mL/min/1.73 b5MHOCL YELLOW APPEARANCE CLEAR SPEC GRAV 1.015 pH 6.5 PROTEIN TRACE GLUCOSE NEGATIVE KETONE NEGATIVE BILIRUBIN NEGATIVE BLOOD NEGATIVE NITRITE NEGATIVE LEUK SCREEN TRACE CASTS/LPF NEGATIVE CRYSTALS NEGATIVE MUCOUS THRDS FEW BACTERIA FEW EPITH CELLS 2++ SQUAMOUS TRICHOMONAS NEGATIVE YEAST NEGATIVE 07/13/2013 9:24 AM WBC 5.8 RBC 4.05 HGB 12.40 g/dLHCT 35.70 %MCV 88.0 fLMCH 30.60 pgMCHC 34.70 g/dLRDW CV 12.0 %MPV 10.80 fLPLT 295 %NEUT 55.40 %%LYMP 34.60 %%MONO 6.40 %%EOS 3.10 %%BASO 0.50 %#NEUT 3.20 #LYMP 2.00 #MONO 0.37 #EOS 0.18 #BASO 0.03 GLUCOSE 151.0 mg/dLSODIUM 139.0 mmol/LPOTASSIUM 4.10 mmol/ LCHLORIDE 104.0 mmol/LCO2 26.0 mmol/LBUN 13.0 mg/dLCREATININE 0.80 mg/dLSGOT/ AST 17.0 IU/LSGPT/ALT 21.0 IU/LALK PHOS 80.0 IU/LTOTAL PROTEIN 7.30 g/dLALBUMIN 4.0 g/dLTOTAL BILI 0.90 mg/dLCALCIUM 9.60 mg/dLeGFR >60 mL/min/1.73 [id number] 64.0 mg/dLCHOLESTEROL 246.0 mg/dLHDL 78.0 mg/dLLDL (CALC) 155.0 mg/dLHGB A1C 7.50 %Est Avg Glucose 168.6 mg/dLTSH 0.580 uIU/mL 09/15/2014 2:34 PM Bilirub Ur Ql Strip negative Glucose Ur-sCnc >=1000mg/dL Hgb Ur Ql Strip negative Ketones Ur Ql Strip negative Nitrite Ur Ql Strip negative pH Ur-LsCnc 6.0 Prot Ur Ql Strip 30mg/dL Sp Gr Ur Qn 1.015 Urobilinogen Ur-mCnc 30mg/dL WBC Est Ur Ql Strip negative 09/22/2014 11:35 AM HGB A1C 9.50 %Est Avg Glucose 226.0 mg/dLGLUCOSE 116.0 mg/ dLSODIUM 141.0 mmol/LPOTASSIUM 4.40 mmol/LCHLORIDE 109.0 mmol/LCO2 22.0 mmol/ LBUN 13.0 mg/dLCREATININE 1.0 mg/dLSGOT/AST 17.0 IU/LSGPT/ALT 11.0 IU/LALK PHOS 104.0 IU/LTOTAL PROTEIN 7.10 g/dLALBUMIN 4.40 g/dLTOTAL BILI 0.70 mg/dLCALCIUM 9.30 mg/dLeGFR 59 History Of Immunizations Not available. History of Past Illness Name Date of Onset Comments Dermatitis Jul 06 2009 8:22AM Hyperlipidemia Diabetes Mellitus, Type II lumbar back pain with radiculopathy Routine gynecological examination Jul 18 2009 8:43AM Right Otitis Externa, Acute Jul 18 2009 8:43AM Diabetes Mellitus, Type II Jul 18 2009 8:43AM Polyneuropathy in diabetes Jul 18 2009 8:43AM Leg cramps Jul 31 2009 2:59PM Diabetes Mellitus, Type II, Uncontrolled Aug 07 2009 11:35AM Right Otitis Media, Acute Aug 07 2009 11:35AM Diabetes Mellitus, Type II - stable with satisfactory control Sep 07 2009 8: 56AM Allergic rhinitis; due to pollen Sep 07 2009 8:56AM Cocaine dependence Sebaceous Cyst Jan 15 2010 1:58PM Herpes Zoster Jan 15 2010 1:58PM Routine gynecological examination Oct 09 2010 1:28PM Diabetes Mellitus, Type II Oct 09 2010 1:28PM Hyperlipidemia Oct 09 2010 1:28PM Diabetes Mellitus, Type II Dec 27 2010 11:17AM Depression Dec 27 2010 11:17AM Weight Loss Dec 27 2010 11:17AM Wart Dec 27 2010 11:17AM Diabetes Mellitus, Type II Feb 01 2011 9:55AM Depressive Disorder Feb 01 2011 9:55AM Diabetes Mellitus, Type II Apr 10 2011 9:55AM Abscess- left breast Apr 10 2011 9:55AM Drug dependence; cocaine; episodic Apr 10 2011 9:55AM Low Back Pain May 16 2011 9:16AM Diabetes Mellitus, Type II May 16 2011 9:16AM Lumbar spinal stenosis May 28 2011 9:03AM Fatigue Oct 23 2011 3:59PM Back Pain Oct 23 2011 3:59PM Diabetes Mellitus, Type II, Uncontrolled Oct 23 2011 3:59PM Anxiety Disorder Oct 23 2011 3:59PM Vaginal Discharge Dec 03 2011 2:14PM Screening Examination for Breast Cancer Dec 03 2011 2:14PM Diabetes Mellitus, Type II Jan 02 2012 10:22AM Abscess Jan 02 2012 10:22AM Diabetes Mellitus, Type II, Uncontrolled Jan 06 2012 8:21AM Polyneuropathy in diabetes Jan 06 2012 8:21AM Furuncle of the Buttock Mar 18 2012 9:37AM Abscess Dec 01 2012 8:25AM Abscess Dec 01 2012 9:02AM Abdominal Pain Mar 31 2013 3:00PM Glycosuria Mar 31 2013 3:00PM Diabetic Ketoacidosis Mar 31 2013 3:00PM Fever, unspecified Mar 31 2013 3:00PM Hypertension Apr 08 2013 2:09PM Diabetes Mellitus, Type II Apr 08 2013 2:09PM Gingival And Periodontal Disease Apr 08 2013 2:09PM Diabetes Mellitus, Type II Apr 14 2013 9:30AM Pyelonephritis, Acute Improving Apr 14 2013 9:30AM Diabetes Mellitus, Type II Apr 28 2013 9:47AM Headache Apr 28 2013 9:47AM Diabetes Mellitus, Type II Jul 12 2013 3:52PM Hyperlipidemia Jul 12 2013 3:52PM Fatigue Jul 12 2013 3:52PM Neuralgia Jul 12 2013 3:52PM Essential Hypertension Jul 29 2013 2:38PM Diabetes Mellitus, Type II, Uncontrolled Jul 29 2013 2:38PM Hemorrhoids Jul 29 2013 2:38PM Fatigue Jul 29 2013 2:38PM Diabetes Mellitus, Type II Aug 27 2013 9:59AM Herpes Zoster Aug 27 2013 9:59AM Diabetes Mellitus, Type II Nov 03 2013 10:03AM Polyneuropathy in diabetes Nov 03 2013 10:03AM Routine gynecological examination Dec 28 2013 9:54AM Screening Examination for Breast Cancer Dec 28 2013 9:54AM Acute bronchitis Dec 28 2013 9:54AM lumbar back pain Dec 28 2013 9:54AM Diabetes Mellitus, Type II Feb 10 2014 9:13AM lumbar back pain Feb 10 2014 9:13AM Restless leg syndrome Feb 10 2014 9:13AM Chronic Low Back Pain Jul 06 2014 9:10AM Screening Examination for Breast Cancer Sep 15 2014 10:20AM Diabetes Mellitus, Type II Sep 22 2014 9:37AM Diabetes Mellitus, Type II Sep 15 2014 10:20AM Hyperlipidemia Sep 15 2014 10:20AM lumbar back pain Sep 15 2014 10:20AM Cocaine dependence Sep 15 2014 10:20AM Screening Mammogram Sep 26 2014 2:06PM lumbar back pain Oct 18 2015 10:32AM Payers Insurance Name Company Name Plan Name Plan Number Policy Number Policy Group Number Start Date [facility] Comm [id number] N/A [place] [employer] [place] [employer] Prog [id number] N/A [facility] [id number] N/A [employer] [id number] N/A [employer] [place] [id number] N/A [facility] [place] [facility] [id number] N/A History of Encounters Visit Date Visit Type Provider 10/18/2015 Office visit Ronnie Tom DO 09/15/2014 Office visit Ronnie Tom DO 07/06/2014 Office visit Ronnie Tom DO 02/10/2014 Office visit Ronnie Huntte DO 12/28/2013 Office visit Ronnie Negro DO 11/03/2013 Office visit Ronnie Negro DO 08/27/2013 Office visit Ronnie Huntte DO 07/29/2013 Office visit Ronnie Negro DO 07/12/2013 Office visit Ronnie Tom DO 04/28/2013 Office visit Ronnie Tom DO 04/14/2013 Office visit Ronnie Tom DO 04/08/2013 Office visit Mack Cortes [employer]CHNICIAN [employer] 04/07/2013 [facility] DO 03/31/2013 [facility] DO 03/31/2013 Office visit Regi Foster TECHNICIAN [employer] EQU[employer]MENT 12/01/2012 Office visit Regi Foster TECHNICIAN [employer] EQUIPMENT 03/18/2012 Office visit Ronnie Tom DO 01/06/2012 Office visit Ronnie Tom DO 01/02/2012 Office visit Lorraine Lopez TECHNICIAN [employer] EQU[employer]MENT 12/03/2011 Office visit Ronnie Tom DO 10/23/2011 Office visit Regi Foster TECHNICIAN [employer] EQU[employer]MENT 05/28/2011 Office visit Ronnie Tom DO 05/16/2011 Office visit Ronnie Tom DO 04/10/2011 Office visit Ronnie Negro DO 02/01/2011 Office visit Ronnie Tom DO 12/27/2010 Office visit Ronnie Tom DO 10/09/2010 Office visit Ronnie Tom DO 01/15/2010 Office visit Alma Rosa [place] [facility] 09/07/2009 Office visit Ronnie Tom DO 08/07/2009 Office visit Ronnie Tom DO 07/18/2009 Office visit Ronnie Tom DO 07/06/2009 Office visit Ronnie Negro DO 04/06/2009 Office visit Ronnie Negro DO
--- OUTSIDE RECORDS SUMMARY | 2016-12-17 04:56 | XMS REPORT ---
Author Author MENDEZ DEGROOT Organization [employer] Address Unknown Phone Unavailable Care Team Providers Care Color Adviser Name Role Phone MENDEZ DEGROOT Unavailable Allergies No Known Allergies Problems Problem Type Condition ICD-9 Code Onset Dates Condition Status Assessment History of recent traumatic injury of head V15.52 Active Assessment Diabetes type 2, uncontrolled 250.02 Active Problem Diabetes type 2, uncontrolled 250.02 Active Assessment Visual disturbance 368.9 Active Medications No Known Medications Procedures Procedure Coding System Code Date COMPREHEN METABOLIC PANEL CPT-4 67790 Mar 02, 2015 ASSAY THYROID STIM HORMONE CPT-4 80752 Mar 02, 2015 COMPLETE CBC W/AUTO DIFF WBC CPT-4 44276 Mar 02, 2015 MICROALBUMIN, SEMIQUANT CPT-4 48451 Mar 02, 2015 LIPID PANEL CPT-4 31397 Mar 02, 2015 MICROALBUMIN, QUANTITATIVE CPT-4 27156 Mar 02, 2015 VENIPUNCT, ROUTINE* CPT-4 19085 Mar 02, 2015 Results Name Result Date Reference Range Unit Abnormality Flag ROUTINE VENIPUNCTURE Summary Purpose eClinicalWorks Submission
--- OUTSIDE RECORDS SUMMARY | 2016-12-17 04:56 | XMS REPORT ---
Author Author MENDEZ DEGROOT Organization [employer] Address Unknown Phone Unavailable Care Team Providers Care Oracle Data Warehouse Developer Name Role Phone MENDEZ DEGROOT Unavailable Allergies No Known Allergies Problems Problem Type Condition Code Onset Dates Condition Status Problem Diabetes type 2, uncontrolled 250.02 Active Medications No Known Medications Results No Known Results Summary Purpose eClinicalWorks Submission
--- OUTSIDE RECORDS SUMMARY | 2016-12-17 04:56 | XMS REPORT ---
Author Author CHRIS BECKWITH Organization [facility] Address [address] [place] [address] Care Team Providers Care Corrugator Helper Name Role Phone CHRIS BECKWITH Unavailable PROBLEMS Type Condition ICD9-CM Code [id number] Code Onset Dates Condition Status SNOMED Code Problem Dysuria R30.0 Active 58807353 Problem Diabetes E11.9 Active 00407980 Problem Anxiety F41.9 Active 90648158 Assessment Dysuria R30.0 May, Active 50102547 Problem Diabetic neuropathy E11.40 Active 204599538 Problem Anemia D64.9 Active 980433714 ALLERGIES Unknown Allergies SOCIAL HISTORY No smoking Hx information available PLAN OF CARE Activity Details Pending Test CULTURE, URINE ,Reason: VITAL SIGNS MEDICATIONS Unknown Medications RESULTS Name Result Date Reference Range UA LONG DIP (IN HOUSE) 2016-05-14 Lot # [id number] Exp date 01/2017 Clarity clear Color yellow Odor no GLU >1000 AVERY negative KET negative SG 1.015 BLO small pH 6.0 Protein 30 URO 1.0 NIT positive ITALIA negative Lot # Exp date CULTURE, URINE 2016-05-14 Urine Culture, Routine Final report Result 1 Klebsiella pneumoniae Antimicrobial Susceptibility PROCEDURES Procedure Date Ordered Related Diagnosis Body Site URINALYSIS, AUTO, W/O SCOPE May 14, 2016 URINE CULTURE/COLONY COUNT May 14, 2016 IMMUNIZATIONS No Known Immunizations
--- OUTSIDE RECORDS SUMMARY | 2016-12-17 04:58 | XMS REPORT ---
Author Aleisha Morrow [facility] Address [address] [place] [id number] Care Team Providers Care Mud Trucker Name Role Phone Aleisha Childs PCP Allergies and Adverse Reactions Name Reaction Notes [...] HC BMI BSA BMI Percentile O2 Sat(%) 02/24/2016 12:19:00 PM 112 bpm 18 rpm 97.6 F 121 lbs 63.5 in 21.10 kg/m2 1.57 m2 100 % 10/18/2015 10:29:00 AM 108 mmHg 60 mmHg 92 bpm 14 rpm 96.6 F 128.5 lbs 63.5 in 22.4055 kg/m 1.616 m 100 % 09/15/2014 10:18:00 AM 132 mmHg 76 mmHg 80 bpm 20 rpm 98.1 F 146 lbs 63.5 in 25.46 kg/m2 1.72 m2 100 % 07/06/2014 9:08:00 AM 130 mmHg 78 mmHg 92 bpm 20 rpm 97.8 F 148 lbs 63.5 in 25.8055 kg/m 1.7343 m 98 % 02/10/2014 9:08:00 AM 130 mmHg 90 mmHg 106 bpm 18 rpm 97.8 F 142.375 lbs 63.5 in 24.8247 kg/m 1.70 m2 100 % 12/28/2013 9:47:00 AM 128 mmHg 80 mmHg 112 bpm 18 rpm 98.1 F 137 lbs 63.5 in 23.89 kg/m2 1.6686 m 99 % 11/03/2013 10:02:00 AM 122 mmHg 62 mmHg 113 bpm 20 rpm 98.3 F 124 lbs 63.5 in 21.6208 kg/m 1.59 m2 100 % 08/27/2013 9:57:00 AM 124 mmHg 60 mmHg 114 bpm 20 rpm 97.6 F 122 lbs 63.5 in 21.27 kg/m2 1.5746 m 100 % 07/29/2013 2:36:00 PM 102 mmHg 60 mmHg 113 bpm 18 rpm 97 F 120 lbs 63.5 in 20.9234 kg/m 1.56 m2 100 % 07/12/2013 3:50:00 PM 126 mmHg 76 mmHg 109 bpm 18 rpm 98 F 119 lbs 63.5 in 20.75 kg/m2 1.5551 m 100 % 04/28/2013 9:45:00 AM 148 mmHg 78 mmHg 95 bpm 20 rpm 98.1 F 120 lbs 63.5 in 20.9234 kg/m 1.56 m2 100 % 04/14/2013 9:28:00 AM 134 mmHg 78 mmHg 103 bpm 24 rpm 98.1 F 120 lbs 63.5 in 20.92 kg/m2 1.5616 m 100 % 03/31/2013 2:58:00 PM 124 mmHg 72 mmHg 111 bpm 18 rpm 99.7 F 124.25 lbs 63.5 in 21.6644 kg/m 1.59 m2 100 % 12/01/2012 8:21:00 AM 128 mmHg 68 mmHg 100 bpm 18 rpm 97.7 F 126.125 lbs 63.5 in 21.99 kg/m2 1.601 m 100 % 03/18/2012 9:32:00 AM 115 mmHg 80 mmHg 90 bpm 18 rpm 97.5 F 143 lbs 63.5 in 24.9337 kg/m 1.70 m2 98 % 01/06/2012 8:19:00 AM 132 mmHg 68 mmHg 62 bpm 18 rpm 98.2 F 129 lbs 63.5 in 22.49 kg/m2 1.6191 m 01/02/2012 10:20:00 AM 110 mmHg 70 mmHg 96 bpm 18 rpm 96.8 F 132.375 lbs 63.5 in 23.0811 kg/m 1.64 m2 96 % 12/03/2011 2:12:00 PM 120 mmHg 68 mmHg 70 bpm 18 rpm 98.2 F 128 lbs 63.5 in 22.32 kg/m2 1.6128 m 10/23/2011 3:58:00 PM 110 mmHg 70 mmHg 125 bpm 18 rpm 97.2 F 134 lbs 98 % 05/28/2011 9:00:00 AM 110 mmHg 68 mmHg 120 bpm 16 rpm 97.1 F 133 lbs 63.5 in 23.19 kg/m2 1.644 m 100 % 05/16/2011 9:13:00 AM 132 mmHg 80 mmHg 76 bpm 18 rpm 98.2 F 130 lbs 63.5 in 22.667 kg/m 1.63 m2 04/10/2011 9:58:00 AM 132 mmHg 76 mmHg 72 bpm 18 rpm 98.2 F 125 lbs 63.5 in 21.80 kg/m2 1.5938 m 02/01/2011 9:57:00 AM 126 mmHg 70 mmHg 70 bpm 18 rpm 98.2 F 130 lbs 63.5 in 22.667 kg/m 1.63 m2 12/27/2010 11:18:00 AM 124 mmHg 80 mmHg 108 bpm 20 rpm 97.1 F 133.187 lbs 63.5 in 23.22 kg/m2 1.6452 m 98 % 10/09/2010 1:28:00 PM 130 mmHg 74 mmHg 70 bpm 16 rpm 98.2 F 147 lbs 01/15/2010 1:55:00 PM 112 mmHg 70 mmHg 64 bpm 16 rpm 97.6 F 159.375 lbs 09/07/2009 8:53:00 AM 130 mmHg 72 mmHg 78 bpm 20 rpm 98 F 153 lbs 63.5 in 26.6773 kg/m 1.76 m2 08/07/2009 11:33:00 AM 134 mmHg 76 mmHg 66 bpm 18 rpm 97.1 F 158 lbs 07/18/2009 8:41:00 AM 126 mmHg 76 mmHg 80 bpm 22 rpm 98 F 166 lbs 07/06/2009 8:18:00 AM 140 mmHg 90 mmHg 70 bpm 20 rpm 97.1 F 170.5 lbs 63.5 in 29.73 kg/m2 1.8614 m Social History Name Description Comments Tobacco Smoker, [...] Reviewed 07/06/2009 12:00 AM Decadron Inj. 8mg [facility] #[address]-91 Reviewed 07/06/2009 12:00 AM Depo-Medrol 80 mg IM [facility]# [address]-61 Reviewed 09/15/2014 2:34 PM URINALYSIS AUTO W/O [...] mg/dLCREATININE 0.80 mg/dLCALCIUM 9.20 mg/dLeGFR >60 mL/min/1.73 [id number] YELLOW APPEARANCE CLEAR SPEC GRAV 1.015 pH [...] BILI 0.90 mg/dLCALCIUM 9.60 mg/dLeGFR >60 mL/min/1.73 [id number] 64.0 mg/dLCHOLESTEROL 246.0 mg/dLHDL 78.0 mg/dLLDL (CALC) 155.0 mg/dLEst Avg Glucose 168.6 mg/dLTSH 0.580 uIU/mL 09/15/2014 2:34 PM Bilirub Ur Ql Strip negative Glucose Ur-sCnc >=1000mg/dL Hgb Ur Ql Strip negative Ketones Ur Ql Strip negative Nitrite Ur Ql Strip negative pH Ur-LsCnc 6.0 Prot Ur Ql Strip 30mg/dL Sp Gr Ur Qn 1.015 Urobilinogen Ur-mCnc 30mg/dL WBC Est Ur Ql Strip negative 09/22/2014 11:35 AM Est Avg Glucose 226.0 mg/dLGLUCOSE 116.0 mg/dLSODIUM 141.0 mmol/LPOTASSIUM 4.40 mmol/LCHLORIDE 109.0 mmol/LCO2 22.0 mmol/LBUN 13.0 mg/ dLCREATININE 1.0 mg/dLSGOT/AST 17.0 IU/LSGPT/ALT 11.0 IU/LALK PHOS 104.0 IU/ LTOTAL PROTEIN 7.10 g/dLALBUMIN 4.40 g/dLTOTAL BILI 0.70 mg/dLCALCIUM 9.30 mg/ dLeGFR 59 History Of Immunizations Not available. History [...] lumbar back pain Oct 18 2015 10:32AM Otorrhea, left Feb 24 2016 12:21PM Payers Insurance Name Company Name Plan Name Plan Number Policy Number Policy Group Number Start Date [place] Prog [id number] N/A [facility] Childrens [facility] [id number] N/A Early Detection Works [employer] [id number] N/A [employer] Assistance [employer] [place] [id number] N/A [facility] [place] [facility] [id number] N/A [facility] Comm [id number] N/A History of Encounters Visit Date Visit Type Provider 02/24/2016 Office visit Aleisha Childs CONVEX GRINDER OPERATOR 10/18/2015 Office visit Ronnie Negro DO 09/15/2014 Office visit Ronnie Negro DO 07/06/2014 Office visit Ronnie Negro DO 02/10/2014 Office visit Ronnie Negro DO 12/28/2013 Office visit Ronnie Negro DO 11/03/2013 Office visit Ronnie Negro DO 08/27/2013 Office visit Ronnie Negro DO 07/29/2013 Office visit Ronnie Negro DO 07/12/2013 Office visit Ronnie Negro DO 04/28/2013 Office visit Ronnie Negro DO 04/14/2013 Office visit Ronnie Negro DO 04/08/2013 Office visit Mack Cortes CONVEX GRINDER OPERATOR 04/07/2013 [facility] DO 03/31/2013 [facility] DO 03/31/2013 Office visit Regi Foster CONVEX GRINDER OPERATOR 12/01/2012 Office visit Regi Foster CONVEX GRINDER OPERATOR 03/18/2012 Office visit Ronnie Huntte DO 01/06/2012 Office visit Ronnie Huntte DO 01/02/2012 Office visit Lorraine Lopez CONVEX GRINDER OPERATOR 12/03/2011 Office visit Ronnie Tom DO 10/23/2011 Office visit Regi Foster CONVEX GRINDER OPERATOR 05/28/2011 Office visit Ronnie Negro DO 05/16/2011 Office visit Ronnie Negro DO 04/10/2011 Office visit Ronnie Negro DO 02/01/2011 Office visit Ronnie Negro DO 12/27/2010 Office visit Ronnie Negro DO 10/09/2010 Office visit Ronnie Negro DO 01/15/2010 Office visit Alma Rosa [place] [facility] 09/07/2009 Office visit Ronnie Negro DO 08/07/2009 Office visit Ronnie Negro DO 07/18/2009 Office visit Ronnie Negro DO 07/06/2009 Office visit Ronnie Negro DO 04/06/2009 Office visit Ronnie Negro DO
--- OUTSIDE RECORDS SUMMARY | 2016-12-17 04:58 | XMS REPORT ---
Author Author MENDEZ DEGROOT Organization [employer] Address Unknown Phone Unavailable Care Team Providers Care Spring Intern Name Role Phone MENDEZ DEGROOT Unavailable Allergies No Known Allergies Problems Problem Type Condition Code Onset Dates Condition Status Problem Diabetic neuropathy E11.40 Active Problem Anemia D64.9 Active Problem Diabetes E11.9 Active Problem Anxiety F41.9 Active Medications No Known Medications Results No Known Results Summary Purpose eClinicalWorks Submission
--- OUTSIDE RECORDS SUMMARY | 2016-12-17 04:59 | XMS REPORT ---
Author Aleisha Morrow Organization [facility] Address [address] [place] [id number] Care Team Providers Care Bus Operator Name Role Phone Aleisha Childs PCP Ronnie Tom PreferredProvider Unavailable Allergies and Adverse Reactions Name Reaction Notes Phenergan PENICILLINS codeine sulfate Plan of Treatment Planned Activity Comments Planned Date Planned Time Plan/Goal *Injection,Subcutaneous/Intramuscul 10/23/2011 12:00 AM Hgb A1C (glycated hemoglobin) 04/28/2013 12:00 AM Albumin; urine, microalbumin, quantitative 04/28/2013 12:00 AM CBC With Auto Differential 07/29/2013 12:00 AM Urine Drug Screen 09/15/2014 12:00 AM Medications Active Name Start [...] Reviewed 07/06/2009 12:00 AM Decadron Inj. 8mg [facility] #[address]-33 Reviewed 07/06/2009 12:00 AM Depo-Medrol 80 mg IM [facility]# [address]-47 Reviewed 09/15/2014 2:34 PM URINALYSIS AUTO W/O [...] Exam-Diabetic Done 07/31/2009 3:28 PM GLUCOSE 655 RECHECKED VERIFIED BY REPEAT ANALYSIS DATE/TIME CALLED: 07-31-09 2426 [facility] READ BACK BY: ALEISHA @ [facility] SODIUM 135.0 mmol/ LPOTASSIUM 4.30 mmol/LCHLORIDE 98.0 mmol/LCO2 24.0 mmol/LBUN 12.0 mg/ dLCREATININE 1.10 mg/dLCALCIUM 9.30 mg/dLAGE 43 GFR NonAA 54 GFR AA 65 eGFR 54 eGFR AA* >60 GLUCOSE 655 SODIUM 135.0 mmol/LPOTASSIUM 4.30 mmol/LCHLORIDE 98.0 mmol/LCO2 24.0 mmol/LBUN 12.0 mg/dLCREATININE 1.10 mg/dLCALCIUM 9.30 mg/dLAGE 43 GFR NonAA 54 GFR AA 65 eGFR 54 eGFR AA* >60 10/24/2011 8:50 AM WBC 12.1 RBC 4.38 HGB 14.0 g/dLHCT 39.50 %MCV 90.0 fLMCH 32.0 pgMCHC 35.40 g/dLRDW SD 39 RDW CV 11.80 %MPV 11.70 fLPLT 281 NRBC# 0.00 NRBC% 0.0 %NEUT 78.30 %%LYMP 16.60 %%MONO 4.70 %%EOS 0.20 %%BASO 0.20 %#NEUT 9.51 #LYMP 2.01 #MONO 0.57 #EOS 0.02 #BASO 0.03 MANUAL DIFF NOT IND GLUCOSE 343.0 mg/dLSODIUM 136.0 mmol/LPOTASSIUM 3.90 mmol/LCHLORIDE 98.0 mmol/LCO2 25.0 mmol/LBUN 19.0 mg/dLCREATININE 0.80 mg/dLSGOT/AST 15.0 IU/LSGPT/ALT 29.0 IU/ LALK PHOS 115.0 IU/LTOTAL PROTEIN 7.10 g/dLALBUMIN 4.40 g/dLTOTAL BILI 0.50 mg/ dLCALCIUM 10.0 mg/dLAGE 45 GFR NonAA 77 GFR AA 93 eGFR 60 eGFR AA* 60 TRIGLYCERIDES 65.0 mg/dLCHOLESTEROL 279.0 mg/dLHDL 87.0 mg/dLTOT CHOL/HDL 3.2 LDL (CALC) 179.0 mg/dLTSH 0.40 uIU/mL 12/03/2011 4:09 PM WET PREP TRICH SEEN CLUE CELLS NONE SEEN 03/31/2013 3:35 PM WBC 17.3 RBC 4.17 HGB 13.0 g/dLHCT 36.80 %MCV 88.0 fLMCH 31.20 pgMCHC 35.30 g/dLRDW SD 38 RDW CV 11.80 %MPV 12.0 fLPLT 163 NRBC# 0.00 NRBC% 0.0 %NEUT 87.40 %%LYMP 2.70 %%MONO 9.60 %%EOS 0.20 %%BASO 0.10 %#NEUT 15.12 #LYMP 0.47 #MONO 1.67 #EOS 0.04 #BASO 0.02 MANUAL DIFF SEE BELOW SEGS 76 BANDS 14 LYMPHS 2 MONOS 8 COLOR YELLOW APPEARANCE CLEAR SPEC GRAV 1.010 pH 6.0 PROTEIN 30 GLUCOSE >=1000 KETONE 40 BILIRUBIN SMALL BLOOD MODERATE NITRITE NEGATIVE LEUK SCREEN NEGATIVE WBC/HPF 0-5 RBC/HPF 5-10 CASTS/LPF NEGATIVE CRYSTALS NEGATIVE MUCOUS THRDS 1+ BACTERIA FEW EPITH CELLS 1+ SQUAMOUS TRICHOMONAS NEGATIVE YEAST NEGATIVE CULT SET UP? NO LIPASE 20.0 U/LGLUCOSE 501.0 mg/dLSODIUM 129.0 mmol/LPOTASSIUM 4.90 mmol/LCHLORIDE 92.0 mmol/LCO2 19.0 mmol/LBUN 26.0 mg/dLCREATININE 1.40 mg/dLSGOT/AST 23.0 IU/LSGPT/ALT 54.0 IU/ LALK PHOS 285.0 IU/LTOTAL PROTEIN 7.60 g/dLALBUMIN 3.40 g/dLTOTAL BILI 1.40 mg/ dLCALCIUM 10.0 mg/dLAGE 47 GFR NonAA 40 GFR AA 48 eGFR 40 eGFR AA* 48 04/14/2013 11:30 AM GLUCOSE 168.0 mg/dLSODIUM 140.0 mmol/LPOTASSIUM 4.50 mmol/ LCHLORIDE 99.0 mmol/LCO2 27.0 mmol/LBUN 16.0 mg/dLCREATININE 0.80 mg/dLCALCIUM 9.20 mg/dLAGE 47 GFR NonAA 77 GFR AA 93 eGFR >60 mL/min/1.73 m2eGFR AA* >60 COLOR YELLOW APPEARANCE CLEAR SPEC GRAV 1.015 pH 6.5 PROTEIN TRACE GLUCOSE NEGATIVE KETONE NEGATIVE BILIRUBIN NEGATIVE BLOOD NEGATIVE NITRITE NEGATIVE LEUK SCREEN TRACE WBC/HPF 5-10 RBC/HPF RARE CASTS/LPF NEGATIVE CRYSTALS NEGATIVE MUCOUS THRDS FEW BACTERIA FEW EPITH CELLS 2++ SQUAMOUS TRICHOMONAS NEGATIVE YEAST NEGATIVE CULT SET UP? YES 07/13/2013 9:24 AM WBC 5.8 RBC 4.05 HGB 12.40 g/dLHCT 35.70 %MCV 88.0 fLMCH 30.60 pgMCHC 34.70 g/dLRDW SD 38 RDW CV 12.0 %MPV 10.80 fLPLT 295 NRBC# 0.00 NRBC% 0.0 %NEUT 55.40 %%LYMP 34.60 %%MONO 6.40 %%EOS 3.10 %%BASO 0.50 %#NEUT 3.20 #LYMP 2.00 #MONO 0.37 #EOS 0.18 #BASO 0.03 MANUAL DIFF NOT IND GLUCOSE 151.0 mg/dLSODIUM 139.0 mmol/LPOTASSIUM 4.10 mmol/LCHLORIDE 104.0 mmol/LCO2 26.0 mmol/LBUN 13.0 mg/dLCREATININE 0.80 mg/dLSGOT/AST 17.0 IU/LSGPT/ALT 21.0 IU /LALK PHOS 80.0 IU/LTOTAL PROTEIN 7.30 g/dLALBUMIN 4.0 g/dLTOTAL BILI 0.90 mg/ dLCALCIUM 9.60 mg/dLAGE 47 GFR NonAA 77 GFR AA 93 eGFR >60 mL/min/1.73 m2eGFR AA * >60 TRIGLYCERIDES 64.0 mg/dLCHOLESTEROL 246.0 mg/dLHDL 78.0 mg/dLTOT CHOL/HDL 3.2 LDL (CALC) 155.0 mg/dLHGB A1C 7.50 %Est Avg Glucose 168.6 mg/dLTSH 0.580 uIU /mL 09/15/2014 2:34 PM Bilirub Ur Ql Strip [...] g/dLALBUMIN 4.40 g/dLTOTAL BILI 0.70 mg/dLCALCIUM 9.30 mg/dLAGE 48 GFR NonAA 59 GFR AA 72 eGFR 59 eGFR AA* >60 History Of Immunizations Not available. History of [...] Policy Number Policy Group Number Start Date [place] Medical [place] Program [place] Prog [id number] N/A [facility] Childrens [facility] [id number] N/A Early Detection Works [employer] [id number] N/A [employer] Financial Assistance [employer] Financial [place] [id number] N/A [facility] [place] [facility] [place] [facility] [id number] N/A [facility] Comm [id number] N/A History of Encounters Visit Date Visit Type Provider 02/24/2016 Office visit Aleisha Childs MOLD SHIFTER 10/18/2015 Office visit Ronnie Tom DO 09/15/2014 Office visit Ronnie Tom DO 07/06/2014 Office visit Ronnie Tom DO 02/10/2014 Office visit Ronnie Tmo DO 12/28/2013 Office visit Ronnie Tom DO 11/03/2013 Office visit Ronnie Tom DO 08/27/2013 Office visit Ronnie Tom DO 07/29/2013 Office visit Ronnie Tom DO 07/12/2013 Office visit Ronnie Tom DO 04/28/2013 Office visit Ronnie Tom DO 04/14/2013 Office visit Ronnie Tom DO 04/08/2013 Office visit Mack Cortes MOLD SHIFTER 04/07/2013 [facility] DO 03/31/2013 [facility] DO 03/31/2013 Office visit Reig Foster MOLD SHIFTER 12/01/2012 Office visit Regi Foster MOLD SHIFTER 03/18/2012 Office visit Ronnie Tom DO 01/06/2012 Office visit Ronnie Tom DO 01/02/2012 Office visit Lorraine Huynhlawrence MOLD SHIFTER 12/03/2011 Office visit Ronnie Tom DO 10/23/2011 Office visit Regi Foster MOLD SHIFTER 05/28/2011 Office visit Ronnie Tom DO 05/16/2011 Office visit Ronnie Tom DO 04/10/2011 Office visit Ronnie Tom DO 02/01/2011 Office visit Ronnie Tom DO 12/27/2010 Office visit Ronnie Tom DO 10/09/2010 Office visit Ronnie Tom DO 01/15/2010 Office visit Alma Rosa [place] [facility] 09/07/2009 Office visit Ronnie Tom DO 08/07/2009 Office visit Ronnie Tom DO 07/18/2009 Office visit Ronnie Tom DO 07/06/2009 Office visit Ronnie Tom DO 04/06/2009 Office visit Ronnie Tom DO
--- OUTSIDE RECORDS SUMMARY | 2016-12-17 04:59 | XMS REPORT ---
Author Author ROSA M RIBEIRO Organization [employer] Address Unknown Phone Unavailable Care Team Providers Care Stamping Bench Die Maker Name Role Phone ROSA M RIBEIRO Unavailable Allergies No Known Allergies Problems Problem Type Condition Code Onset Dates Condition Status Problem Diabetic neuropathy E11.40 Active Problem Anemia D64.9 Active Problem Diabetes E11.9 Active Problem Anxiety F41.9 Active Medications Medication Code System Code Instructions Start Date End Date Status Dosage Lisinopril [facility] [address]-41 10 MG Orally Once a day 1 tablet Simvastatin [facility] [address]-33 20 MG Orally Once a day 1 tablet in the evening Ropinirole HCl [facility] [address]-66 1 MG Orally 1 tablet 1 to 3 hours before bedtime Results No Known Results Summary Purpose eClinicalWorks Submission
--- OUTSIDE RECORDS SUMMARY | 2016-12-17 05:00 | XMS REPORT | Continuity of Care Document ---
Author Author [facility] Organization [facility] Address Unknown Phone Unavailable Allergies Medications Problems Procedures Results Encounters ACCT No. Visit Date/Time Discharge Status Pt. Type Provider Facility Loc./Unit Complaint [id number] 09/15/2014 11:06:23 09/15/2014 23: 59:59 [facility] Outpatient Ronnie Tom [id number] 07/06/2014 09:49:06 07/06/2014 23: 59:59 [facility] Out[facility] Ronnie Tom [id number] 02/10/2014 09:58:55 02/10/2014 23: 59:59 [facility] Outpatient Ronnie Tom [id number] 12/28/2013 10:36:41 12/28/2013 23: 59:59 [facility] Outpatient Ronnie Tom [id number] 11/03/2013 10:56:17 11/03/2013 23: 59:59 [facility] Outpatient Ronnie Tom [id number] 08/27/2013 10:52:02 08/27/2013 23: 59:59 [facility] Outpatient Ronnie Tom [id number] 08/19/2013 12:27:19 08/19/2013 23: 59:59 [facility] Outpatient Kya Tay [id number] 07/29/2013 15:31:24 07/29/2013 23: 59:59 [facility] Outpatient Ronnie Tom [id number] 07/12/2013 16:35:19 07/12/2013 23: 59:59 [facility] Outpatient Ronnie Tom [id number] 07/05/2013 10:11:02 07/05/2013 23: 59:59 [facility] Outpatient Regi Foster [id number] 07/05/2013 10:10:41 07/05/2013 23: 59:59 [facility] Outpatient Ronnie Tom [id number] 07/05/2013 10:10:01 07/05/2013 23: 59:59 [facility] Outpatient Kya Tay [id number] 07/05/2013 10:09:20 07/05/2013 23: 59:59 [facility] Outpatient Ronnie Tom [id number] 02/24/2016 13:04:10 [facility] Outpatient Aleisha Childs
--- OUTSIDE RECORDS SUMMARY | 2016-12-17 05:00 | XMS REPORT ---
Author Ronnie Salas [facility] Address [address] [place] [phone] Care Team Providers Care Social Insurance Analyst Name Role Phone Ronnie Tom PCP Unavailable [...] TAKE ONE TABLET BY MOUTH ONCE DAILY amitriptyline 10 mg oral tablet 05/18/2014 take 2 tablets (20 mg) by oral route at bedtime metformin 500 mg oral tablet 05/19/2014 TAKE 1 TABLET BY MOUTH EVERY MORNING AND 2 TABLETS IN THE EVENING gabapentin 100 mg oral capsule 07/06/2014 TAKE 2 TABLETS BY MOUTH TWICE DAILY metformin 500 mg oral tablet 07/06/2014 TAKE 1 TABLET BY MOUTH EVERY MORNING AND 2 TABLETS IN THE EVENING ropinirole 1 mg oral tablet 07/06/2014 TAKE 1 TABLET BY MOUTH 1 TO 3 HOURS BEFORE BEDTIME simvastatin 20 mg oral tablet 08/31/2014 TAKE 1 TABLET BY MOUTH DAILY IN THE EVENING lisinopril 10 mg oral tablet 11/24/2014 TAKE 1 TABLET BY MOUTH ONCE DAILY Lyrica 100 mg oral capsule 03/03/2015 06/01/2015 take 1 capsule (100 mg) by oral route 2 times a day Name Start Date Expiration Date SIG Comments [...] hours as needed for pain. Use sparingly! Discontinued Name Start Date Discontinued Date SIG [...] HC BMI BSA BMI Percentile O2 Sat(%) 09/15/2014 10:18:00 AM 132 mmHg 76 mmHg 80 bpm 20 rpm 98.1 F 146 lbs 63.5 in 25.46 kg/m2 1.72 m2 100 % 07/06/2014 9:08:00 AM 130 mmHg 78 mmHg 92 bpm 20 rpm 97.8 F 148 lbs 63.5 in 25.8055 kg/m 1.7343 m 98 % 02/10/2014 9:08:00 AM 130 mmHg 90 mmHg 106 bpm 18 rpm 97.8 F 142.375 lbs 63.5 in 24.82 kg/m2 1.70 m2 100 % 12/28/2013 9:47:00 AM 128 mmHg 80 mmHg 112 bpm 18 rpm 98.1 F 137 lbs 63.5 in 23.8875 kg/m 1.6686 m 99 % 11/03/2013 10:02:00 AM 122 mmHg 62 mmHg 113 bpm 20 rpm 98.3 F 124 lbs 63.5 in 21.62 kg/m2 1.59 m2 100 % 08/27/2013 9:57:00 AM 124 mmHg 60 mmHg 114 bpm 20 rpm 97.6 F 122 lbs 63.5 in 21.2721 kg/m 1.5746 m 100 % 07/29/2013 2:36:00 PM 102 mmHg 60 mmHg 113 bpm 18 rpm 97 F 120 lbs 63.5 in 20.92 kg/m2 1.56 m2 100 % 07/12/2013 3:50:00 PM 126 mmHg 76 mmHg 109 bpm 18 rpm 98 F 119 lbs 63.5 in 20.749 kg/m 1.5551 m 100 % 04/28/2013 9:45:00 AM 148 mmHg 78 mmHg 95 bpm 20 rpm 98.1 F 120 lbs 63.5 in 20.92 kg/m2 1.56 m2 100 % 04/14/2013 9:28:00 AM 134 mmHg 78 mmHg 103 bpm 24 rpm 98.1 F 120 lbs 63.5 in 20.9234 kg/m 1.5616 m 100 % 03/31/2013 2:58:00 PM 124 mmHg 72 mmHg 111 bpm 18 rpm 99.7 F 124.25 lbs 63.5 in 21.66 kg/m2 1.59 m2 100 % 12/01/2012 8:21:00 AM 128 mmHg 68 mmHg 100 bpm 18 rpm 97.7 F 126.125 lbs 63.5 in 21.9914 kg/m 1.601 m 100 % 03/18/2012 9:32:00 AM 115 mmHg 80 mmHg 90 bpm 18 rpm 97.5 F 143 lbs 63.5 in 24.93 kg/m2 1.70 m2 98 % 01/06/2012 8:19:00 AM 132 mmHg 68 mmHg 62 bpm 18 rpm 98.2 F 129 lbs 63.5 in 22.4926 kg/m 1.6191 m 01/02/2012 10:20:00 AM 110 mmHg 70 mmHg 96 bpm 18 rpm 96.8 F 132.375 lbs 63.5 in 23.08 kg/m2 1.64 m2 96 % 12/03/2011 2:12:00 PM 120 mmHg 68 mmHg 70 bpm 18 rpm 98.2 F 128 lbs 63.5 in 22.3183 kg/m 1.6128 m 10/23/2011 3:58:00 PM 110 mmHg 70 mmHg 125 bpm 18 rpm 97.2 F 134 lbs 98 % 05/28/2011 9:00:00 AM 110 mmHg 68 mmHg 120 bpm 16 rpm 97.1 F 133 lbs 63.5 in 23.1901 kg/m 1.644 m 100 % 05/16/2011 9:13:00 AM 132 mmHg 80 mmHg 76 bpm 18 rpm 98.2 F 130 lbs 63.5 in 22.67 kg/m2 1.63 m2 04/10/2011 9:58:00 AM 132 mmHg 76 mmHg 72 bpm 18 rpm 98.2 F 125 lbs 63.5 in 21.7952 kg/m 1.5938 m 02/01/2011 9:57:00 AM 126 mmHg 70 mmHg 70 bpm 18 rpm 98.2 F 130 lbs 63.5 in 22.67 kg/m2 1.63 m2 12/27/2010 11:18:00 AM 124 mmHg 80 mmHg 108 bpm 20 rpm 97.1 F 133.187 lbs 63.5 in 23.2228 kg/m 1.6452 m 98 % 10/09/2010 1:28:00 PM 130 mmHg 74 mmHg 70 bpm 16 rpm 98.2 F 147 lbs 01/15/2010 1:55:00 PM 112 mmHg 70 mmHg 64 bpm 16 rpm 97.6 F 159.375 lbs 09/07/2009 8:53:00 AM 130 mmHg 72 mmHg 78 bpm 20 rpm 98 F 153 lbs 63.5 in 26.68 kg/m2 1.76 m2 08/07/2009 11:33:00 AM 134 mmHg 76 mmHg 66 bpm 18 rpm 97.1 F 158 lbs 07/18/2009 8:41:00 AM 126 mmHg 76 mmHg 80 bpm 22 rpm 98 F 166 lbs 07/06/2009 8:18:00 AM 140 mmHg 90 mmHg 70 bpm 20 rpm 97.1 F 170.5 lbs 63.5 in 29.7287 kg/m 1.8614 m Social History Name Description Comments [...] 07/06/2009 12:00 AM Decadron Inj. [address] [facility] #[address]-23 Reviewed 07/06/2009 12:00 AM Depo-Medrol [address] [facility]# [address]-66 Reviewed 09/15/2014 2:34 PM URINALYSIS AUTO W/O [...] mg/dLCREATININE 0.80 mg/dLCALCIUM 9.20 mg/dLeGFR >60 mL/min/1.73 [id number] YELLOW APPEARANCE CLEAR SPEC GRAV 1.015 pH [...] BILI 0.90 mg/dLCALCIUM 9.60 mg/dLeGFR >60 mL/min/1.73 [id number] 64.0 mg/dLCHOLESTEROL 246.0 mg/dLHDL 78.0 mg/dLLDL (CALC) [...] 10:20AM Screening Mammogram Sep 26 2014 2:06PM Payers Insurance Name Company Name Plan Name Plan Number Policy Number Policy Group Number Start Date [facility] Comm [id number] N/A [place] [employer] [place] [employer] Prog [id number] N/A [facility] [id number] N/A [employer] [id number] N/A [employer] Assistance [employer] [place] [id number] N/A [facility] [place] [facility] [id number] N/A History of Encounters Visit Date Visit Type Provider 09/15/2014 Office visit Ronnie Tom DO 07/06/2014 Office visit Ronnie Tom DO 02/10/2014 Office visit Ronnie Tom DO 12/28/2013 Office visit Ronnie Tom DO 11/03/2013 Office visit Ronnie Tom DO 08/27/2013 Office visit Ronnie Tom DO 07/29/2013 Office visit Ronnie Tom DO 07/12/2013 Office visit Ronnie Tom DO 04/28/2013 Office visit Ronnie Tom DO 04/14/2013 Office visit Ronnie Tom DO 04/08/2013 Office visit Mack Cortes APRN 04/07/2013 [facility] DO 03/31/2013 [facility] DO 03/31/2013 Office visit Regi Foster ANALYSIS SPECIALIST 12/01/2012 Office visit Regi Foster ANALYSIS SPECIALIST 03/18/2012 Office visit Ronnie Tom DO 01/06/2012 Office visit Ronnie Tom DO 01/02/2012 Office visit Lorraine Jessica ANALYSIS SPECIALIST 12/03/2011 Office visit Ronnie Tom DO 10/23/2011 Office visit Regi Foster ANALYSIS SPECIALIST 05/28/2011 Office visit Ronnie Tom DO 05/16/2011 [...]
--- OUTSIDE RECORDS SUMMARY | 2016-12-17 05:00 | XMS REPORT ---
Author ROSA M Dietrich [facility] eClinicalWorks Address Unknown Phone Unavailable Care Team Providers Care Log Roller Name Role Phone ROSA M RIBEIRO Unavailable [...] Instructions Start Date End Date Status Dosage Accu-Chek Jennifer [facility] [address]-71 1 Pack In Vitro 3 times a day Apr 25, 2015 glucose testing Latanoprost [facility] [address]-01 0.005 % Ophthalmic Once a day 1 drop into affected eye in the evening Naproxen [facility] [address]-90 500 MG Orally every 12 hrs as needed for the pain Apr 06, 2015 1 tablet as needed HydrOXYzine HCl [facility] 89922569606 25 MG Orally every 8 hrs 1 tablet as needed Lantus [facility] [address]-78 100 UNIT/ML Subcutaneous Once a day at night 15 units Lyrica [facility] [address]-99 100 MG Orally Twice a day 1 capsule HydrOXYzine HCl [facility] 67987680825 25 MG TAKE ONE TABLET BY MOUTH EVERY 8 HOURS NEEDED Simvastatin [facility] [address]-51 20 MG Orally Once a day 1 tablet in the evening Ropinirole HCl [facility] [address]-09 1 MG Orally 1 tablet 1 to 3 hours before bedtime Meloxicam [facility] 82349419898 15 MG TAKE 1/2 TABLET (7.5MG) BY MOUTH TWICE DAILY Ferrous Sulfate [facility] [address]-31 325 (65 Fe) MG Orally 3 times a day 1 tablet Duloxetine HCl [facility] 70512093508 20 MG TAKE ONE CAPSULE BY MOUTH DAILY Lisinopril [facility] [address]-64 10 MG Orally Once a day 1 tablet Metformin HCl [facility] [address]-52 1000 MG Orally Twice a day 1 tablet with meals Accu-Chek Jennifer [facility] [address]-23 1 Pack one device Metformin HCl [facility] 91293367304 1000 MG 1 tablet with meals Twice a day Orally Procedures Procedure Coding System Code Date Office Visit, Est Pt., Level 4 CPT-4 42522 Jun 20, 2015 Vital Signs Date/Time: Jun 20, 2015 Temperature 97.6 F Weight 146 lbs Height 63.50 in BMI 25.45 Index Blood Pressure Diastolic 80 mmHg Blood Pressure Systolic 132 mmHg Cardiac Monitoring Heart Rate 80 bpm Results No Known Results Summary Purpose eClinicalWorks Submission
--- OUTSIDE RECORDS SUMMARY | 2016-12-17 05:00 | XMS REPORT ---
Author Author MENDEZ DEGROOT Organization eClinicalWorks Address Unknown Phone Unavailable Care Team Providers Care Glue Bone Crusher Name Role Phone MENDEZ DEGROOT CP Unavailable Allergies, Adverse Reactions, Alerts Substance Reaction Event Type Phenergan Info Not Available Drug Allergy Penicillin V Potassium Info Not Available Drug Allergy Problems Problem Type Condition ICD-9 Code Onset Dates Condition Status Assessment History of recent traumatic injury of head V15.52 Active Assessment Visual disturbance 368.9 Active Problem Diabetes type 2, uncontrolled 250.02 Active Assessment Diabetes type 2, uncontrolled 250.02 Active Medications No Known Medications Procedures Procedure Coding System Code Date Office Visit, New Pt., Level 3 CPT-4 47393 Feb 23, 2015 Vital Signs Date/Time: Feb 23, 2015 Cardiac Monitoring Heart Rate 116 bpm Temperature 98.2 F Weight 144 lbs Blood Pressure Diastolic 82 mmHg Blood Pressure Systolic 142 mmHg Results No Known Results Summary Purpose eClinicalWorks Submission
--- OUTSIDE RECORDS SUMMARY | 2016-12-17 05:00 | XMS REPORT ---
Author Author MENDEZ DEGROOT Organization [employer] Address Unknown Phone Unavailable Care Team Providers Care Weekday Babysitter Name Role Phone MENDEZ DEGROOT Unavailable Allergies No Known Allergies Problems Problem Type Condition Code Onset Dates Condition Status Problem Diabetes type 2, uncontrolled 250.02 Active Medications No Known Medications Results No Known Results Summary Purpose eClinicalWorks Submission
--- OUTSIDE RECORDS SUMMARY | 2016-12-17 05:00 | XMS REPORT ---
Author ROSA M Dietrich [facility] eClinicalWorks Address Unknown Phone Unavailable Care Team Providers Care Auto Hauler Name Role Phone ROSA M RIBEIRO Unavailable Allergies, Adverse Reactions, Alerts Substance Reaction Event Type Phenergan nausea Drug Allergy Penicillin V Potassium nausea Drug Allergy Problems Problem Type Condition Code Onset Dates Condition Status Assessment Acute costochondritis M94.0 Active Problem Diabetes type 2, uncontrolled 250.02 Active Medications Medication Code System Code Instructions Start Date End Date Status Dosage Medrol (Fadi) [facility] [address]-87 4 MG Orally Apr 06, 2015 as directed on the pack Cymbalta [facility] [address]-36 20 MG Orally Once a day Mar 23, 2015 1 capsule Ropinirole HCl [facility] [address]-00 1 MG Orally Once a day 1 tablet 1 to 3 hours before bedtime Ferrous Sulfate [facility] [address]-30 325 (65 Fe) MG Orally Once a day for 7 days, then 2 times daily for 7 days, then 3 times daily as tolerated Mar 22, 2015 1 tablet Latanoprost [facility] [address]-05 0.005 % Ophthalmic Once a day 1 drop into affected eye in the evening Lisinopril [facility] [address]-34 10 MG Orally Once a day 1 tablet HydrOXYzine HCl [facility] [address]-74 25 MG Orally every 8 hrs Mar 23, 2015 1 tablet as needed Naproxen [facility] [address]-19 500 MG Orally every 12 hrs as needed for the pain Apr 06, 2015 1 tablet as needed Acyclovir [facility] [address]-29 800 MG Orally Five times a day for 10 days Mar 22, 2015 1 tablet Metformin HCl [facility] [address]-12 500 MG Orally Twice a day 1 tablet with meals Simvastatin [facility] [address]-67 20 MG Orally Once a day 1 tablet in the evening Lyrica [facility] [address]-16 100 MG Orally Twice a day 1 capsule Procedures Procedure Coding System Code Date Office Visit, Est Pt., Level 3 CPT-4 79430 Apr 06, 2015 Vital Signs Date/Time: Apr 06, 2015 Temperature 98.5 F Weight 146.2 lbs Height 63.50 in BMI 25.49 Index Blood Pressure Diastolic 86 mmHg Blood Pressure Systolic 134 mmHg Cardiac Monitoring Heart Rate 108 bpm Results No Known Results Summary Purpose eClinicalWorks Submission
== END 2016-12-12 23:31 | disposition home or self-care (01) ==
LOC: EDUNIT# 20:46 → ER 20:56
DX: S90.01XA Contusion of right ankle, initial encounter (principal); N39.0 Urinary tract infection, site not specified; I10 Essential (primary) hypertension; E11.9 Type 2 diabetes mellitus without complications; F14.10 Cocaine abuse, uncomplicated; F17.200 Nicotine dependence, unspecified, uncomplicated; Z79.4 Long term (current) use of insulin; Z79.84 Long term (current) use of oral hypoglycemic drugs; Z91.81 History of falling; Z87.81 Personal history of (healed) traumatic fracture; W19.XXXA Unspecified fall, initial encounter
CPT/HCPCS: 36415; 73610; 80048; 81000; 85027; 87077; 87088; 87186; 96372; 99284

== ENCOUNTER 2017-01-14 16:08 | Emergency (ER) | payer SELFPAY ==
[~2017-01-14] VITALS: Ht 160 cm; Wt 55.3 kg
[~2017-01-14 16:08] MED LIST: INSU100V5 SQ; LISI10TA2 PO; METF500T4 PO; MULT-301 PO; NITR-65 PO; ROPI1TAB2 PO
[2017-01-14] MEDS ORDERED: NS IV 500 ML 500 ML IV ONE (16:23)
[2017-01-14 16:35] LABS: BASOPHILS % (AUTO) 1 % (0-10); EOSINOPHILS # (AUTO) 0.1 10^3/uL (0.0-0.3); EOSINOPHILS % (AUTO) 2 % (0-10); LYMPHOCYTES # (AUTO) 2.2 X 10^3 (1.0-4.0); LYMPHOCYTES % (AUTO) 35 % (12-44); MEAN CORPUSCULAR HEMOGLOBIN 32 PG (25-34); MEAN CORPUSCULAR HGB CONC 34 G/DL (32-36); MEAN CORPUSCULAR VOLUME 92 FL (80-99); MEAN PLATELET VOLUME 10.5 FL (7.4-10.4); MONOCYTES # (AUTO) 0.4 X 10^3 (0.0-1.0); MONOCYTES % (AUTO) 7 % (0-12); NEUTROPHILS # (AUTO) 3.5 X 10^3 (1.8-7.8); NEUTROPHILS % (AUTO) 55 % (42-75); PLATELET COUNT 319 10^3/uL (130-400); RED BLOOD COUNT 3.24 10^6/uL (4.35-5.85); RED CELL DISTRIBUTION WIDTH 11.9 % (10.0-14.5); WHITE BLOOD COUNT 6.3 10^3/uL (4.3-11.0)
--- NOTE | 2017-01-14 16:38 | ED General ---
General Chief Complaint: Cardiac/General Problems Stated Complaint: DIZZY, HIGH BP, LOW SUGAR Source of Information: Patient Exam Limitations: No Limitations History of Present Illness Time Seen by Provider: 16:17 Initial Comments Here with generalized report of not feeling well with blood sugar problems and blood pressure problems. States that she feels dizzy and weak. [facility] She is out of her medicines this weekend and just kind felt a day. She reports taking her blood pressure medicine this morning. She states that she has been taken her insulin throughout the weekend. She called her clinic and instructed her to come here for evaluation due to multiple symptoms. Denies chest pain or breathing problems. Denies nausea or vomiting. Timing/Duration: 2-3 Days Severity: Moderate Associated Systoms: No Chest Pain, No Cough, No Fever/Chills, No Headaches, Malaise, No Nausea/Vomiting, No Shortness of Air, Weakness Allergies and Home Medications Allergies Coded Allergies: Penicillins (Verified Allergy, Unknown, 12/12/16) codeine (Verified Allergy, Unknown, 12/12/16) promethazine (Verified Allergy, Unknown, 12/12/16) Home Medications Gabapentin 300 Mg Capsule, 300 MG PO, (Reported) Ibuprofen 800 Mg Tablet, #60 (Reported) Insulin Determir 1,000 Units/10 Ml Soln, 15 UNITS SQ, (Reported) Lisinopril 10 Mg Tablet, 10 MG PO DAILY, (Reported) Metformin HCl 500 Mg Tablet, 500 MG PO BID, (Reported) Metformin HCl 500 Mg Tab.er.24h, #120 (Reported) Multivitamin 1 Each Tablet, 1 EACH PO, (Reported) Nitrofurantoin Monohyd/M-Cryst 100 Mg Capsule, 1 TAB PO BID for 7 Days, #14 Ref 0 Prescribed by: DOUGLAS GÓMEZ on 12/12/16 2321 Ropinirole HCl 1 Mg Tablet, 1 MG PO, (Reported) Constitutional: see HPI, No chills, No fever EENTM: no symptoms reported Respiratory: no symptoms reported Cardiovascular: see HPI, No chest pain, No palpitations Gastrointestinal: No abdominal pain, No nausea, No vomiting Genitourinary: no symptoms reported Musculoskeletal: No back pain, muscle weakness, No neck pain Skin: no symptoms reported Psychiatric/Neurological: See HPI, Weakness Hematologic/Lymphatic: No Symptoms Reported All Other Systems Reviewed Negative Unless Noted: Yes Past Pyzjkhe-Rsqwsx-Izbdeu Hx Patient Social History Alcohol Use: Denies Use Recreational Drug Use: No Drug of Choice: CRACK COCAINE by history but reports 74 days cleaned Smoking Status: Current Someday Smoker Type Used: Cigarettes Recent Foreign Travel: No Contact w/Someone Who Travel: No Surgeries HX Surgeries: Yes Surgeries: Breast, Hysterectomy, Orthopedic, Tubal Ligation Respiratory Hx Respiratory Disorders: No Cardiovascular Hx Cardiac Disorders: Yes Cardiac Disorders: High Cholesterol, Hypertension Genitourinary Hx Genitourinary Disorders: No Gastrointestinal Hx Gastrointestinal Disorders: No Musculoskeletal Hx Musculoskeletal Disorders: Yes Musculoskeletal Disorders: Back Injury Endocrine Hx Endocrine Disorders: No HEENT HX ENT Disorders: No Cancer Hx Cancer: No Psychosocial Hx Psychiatric Problems: Yes (restless leg syndrome) Reviewed Nursing Assessment Reviewed/Agree w Nursing PMH: Yes Family Medical History Significant Family History: No Pertinent Family Hx Physical Exam Vital Signs Vital Sign - Last 12Hours 01/14/17 16:10 Temp 98.0 Pulse 102 Resp 16 B/P (MAP) 211/110 Pulse Ox 98 Capillary Refill : General Appearance: No Apparent Distress, WD/WN HEENT: PERRL/EOMI, Pharynx Normal Neck: Non Tender, Supple Respiratory: Lungs Clear, Normal Breath Sounds Cardiovascular: No Murmur, Tachycardia Gastrointestinal: Non Tender, Soft Back: Normal Inspection, No CVA Tenderness, No Vertebral Tenderness Extremity: Normal Range of Motion, Non Tender, No Calf Tenderness Neurologic/Psychiatric: Alert, Oriented x3, No Motor/Sensory Deficits Skin: Normal Color, Warm/Dry Progress/Results/Core Measures Results/Orders Lab Results Laboratory Tests Test 01/14/17 16:25 01/14/17 16:28 01/14/17 17:17 Range/Units White Blood Count 6.3 4.3-11.0 10^3/uL Red Blood Count 3.24 L 4.35-5.85 10^6/uL Hemoglobin 10.2 L 11.5-16.0 G/DL Hematocrit 30 L 35-52 % Mean Corpuscular Volume 92 80-99 FL Mean Corpuscular Hemoglobin 32 25-34 PG Mean Corpuscular Hemoglobin Concent 34 32-36 G/DL Red Cell Distribution Width 11.9 10.0-14.5 % Platelet Count 319 130-400 10^3/uL Mean Platelet Volume 10.5 H 7.4-10.4 FL Neutrophils (%) (Auto) 55 42-75 % Lymphocytes (%) (Auto) 35 12-44 % Monocytes (%) (Auto) 7 0-12 % Eosinophils (%) (Auto) 2 0-10 % Basophils (%) (Auto) 1 0-10 % Neutrophils # (Auto) 3.5 1.8-7.8 X 10^3 Lymphocytes # (Auto) 2.2 1.0-4.0 X 10^3 Monocytes # (Auto) 0.4 0.0-1.0 X 10^3 Eosinophils # (Auto) 0.1 0.0-0.3 10^3/uL Basophils # (Auto) 0.0 0.0-0.1 10^3/uL Sodium Level 141 135-145 MMOL/L Potassium Level 4.5 3.6-5.0 MMOL/L Chloride Level 111 H 98-107 MMOL/L Carbon Dioxide Level 20 L 21-32 MMOL/L Anion Gap 10 5-14 MMOL/L Blood Urea Nitrogen 31 H 7-18 MG/DL Creatinine 1.11 0.60-1.30 MG/DL Estimat Glomerular Filtration Rate > 60 BUN/Creatinine Ratio 28 Glucose Level 129 H 70-105 MG/DL Calcium Level 8.7 8.5-10.1 MG/DL Total Bilirubin 0.3 0.1-1.0 MG/DL Aspartate Amino Transf (AST/SGOT) 19 5-34 U/L Alanine Aminotransferase (ALT/SGPT) 18 0-55 U/L Alkaline Phosphatase 70 40-136 U/L Troponin I < 0.30 <0.30 NG/ML Total Protein 6.3 L 6.4-8.2 GM/DL Albumin 3.6 3.2-4.5 GM/DL Glucometer 136 H 70-110 MG/DL Urine Color YELLOW Urine Clarity SLIGHTLY CLOUDY Urine pH 5 5-9 Urine Specific [place] 1.020 1.016-1.022 Urine Protein 4+ NEGATIVE Urine Glucose (UA) NEGATIVE NEGATIVE Urine Ketones NEGATIVE NEGATIVE Urine Nitrite NEGATIVE NEGATIVE Urine Bilirubin NEGATIVE NEGATIVE Urine Urobilinogen NORMAL NORMAL MG/DL Urine Leukocyte Esterase 1+ H NEGATIVE Urine RBC (Auto) 2+ H NEGATIVE Urine RBC NONE /HPF Urine WBC 25-50 H /HPF Urine Squamous Epithelial Cells 2-5 /HPF Urine Crystals NONE /LPF Urine Bacteria LARGE H /HPF Urine Casts NONE /LPF Urine Mucus NEGATIVE /LPF Urine Culture Indicated YES My Orders Orders - ALBARO DYER MD Saline Lock/Iv-Start (01/14/17 16:23) Ns Iv 500 Ml (Sodium Chloride 0.9%) (01/14/17 16:23) Accucheck Stat ONCE (01/14/17 16:23) Ekg Tracing (01/14/17 16:23) Chest 1 View, Ap/Pa Only (01/14/17 16:38) Troponin I (01/14/17 17:05) Ceftriaxone Injection (Rocephin Injectio (01/14/17 17:45) Drug Screen Stat (Urine) (01/14/17 17:39) Medications Given in ED Current Medications Medications Dose Ordered Sig/Abisai Route Start Time Stop Time Status Last Admin Dose Admin Sodium Chloride 500 ml @ 0 mls/hr Q0M ONCE IV 01/14/17 16:23 01/14/17 16:26 DC 01/14/17 16:48 500 MLS/HR Vital Signs/I&O Vital Sign - Last 12Hours 01/14/17 16:10 Temp 98.0 Pulse 102 Resp 16 B/P (MAP) 211/110 Pulse Ox 98 Point of Care Testing Finger Stick Blood Glucose: 136 Progress Note : Progress Note Seen and evaluated. Reports weakness. IV, labs, UA, EKG and normal saline 500 mL bolus. Chest x-ray ordered. Monitor patient. 1740: Discussed case with Dr. Barrett Schrader. She will see the patient in clinic tomorrow at 120 p.m. she will reevaluate blood pressure at that time and continue antibiotics as indicated. Rocephin 1 g IV given here. Patient reports that she is taking Keflex in the past without problems. She does have some sort of penicillin allergy but she doesn't completely remember what that is. She'll continue her other medications as directed. She does admit that she did take her gabapentin earlier today and this may be the reason why she is feeling tired as she was supposed to start this nightly initially and she remembers that now after discussion. Discharged home with return precautions. Patient verbalize understanding instructions and agreement with plan. ECG Initial ECG Impression Date: Jan 14, 2017 Initial ECG Impression Time: 16:33 Initial ECG Rate: 87 Initial ECG Rhythm: Normal Sinus Initial ECG Impression: Normal Initial ECG Comparisson: Unchanged Comment Sinus rhythm with normal axis. Question of minimal ST elevation in the inferior leads but there is some wondering of the baseline. No previous available for comparison interpreted by me. Diagnostic Imaging Diagonstic Imaging: Xray Plain Films/CT/US/NM/MRI: chest [facility] [place] NAME: GODFREY ROBERSON [facility] REC#: [id number] PT STATUS: REG ER : 1965 PHYSICIAN: ALBARO DYER MD ADMIT DATE: 01/14/17/ER Draft Date of Exam:01/14/17 CHEST 1 VIEW, AP/PA ONLY INDICATION: Hypertension, dizziness, and headache. TECHNIQUE: A frontal chest was obtained at 4:40 PM. FINDINGS: The heart and mediastinal silhouette are normal in appearance. The lungs are clear. There is no pneumothorax or pleural fluid. IMPRESSION: Negative chest. Dictated on workstation # [id number] Dict: 01/14/17 1653 Trans: 01/14/17 1659 [id number] Interpreted by: REBECCA PEREZ MD Electronically signed by: Departure Impression Impression: Primary Impression: Urinary tract infection Qualified Codes: N30.00 - Acute cystitis without hematuria Additional Impression: Uncontrolled hypertension Disposition: 01 HOME, SELF-CARE Condition: Improved Departure-Patient Inst. Decision time for Depature: 17:45 Referrals: BARRETT SCHRADER MD (PCP/Family) Primary Care Physician Patient Instructions: High Blood Pressure (DC), Urinary Tract Infection, Adult (DC) Add. Discharge Instructions: All discharge instructions reviewed with patient and/or family. Voiced understanding. Continue home medications as directed. Follow-up with Dr. Schrader at the clinic tomorrow at 1:20 p.m. for recheck and further evaluation. Return for worse pain, fever, vomiting, weakness, breathing problems or other concerns as needed. Dr. Schrader will prescribe further antibiotics as indicated for your urinary tract infection. Copy Copies To 1: BARRETT SCHRADER MD, TIMOTHY D MD Jan 14, 2017 16:38
[2017-01-14] MEDS ORDERED: METF500T8 (16:44)
[2017-01-14] MEDS ORDERED: IBUP-1780 (16:44)
[2017-01-14] MEDS ORDERED: GABA-488 PO (16:44)
[2017-01-14 16:53] LABS: ALANINE AMINOTRANSFERASE 18 U/L (0-55); ALBUMIN 3.6 GM/DL (3.2-4.5); ANION GAP 10 MMOL/L (5-14); ASPARTATE AMINO TRANSFERASE 19 U/L (5-34); BILIRUBIN,TOTAL 0.3 MG/DL (0.1-1.0); BLOOD UREA NITROGEN 31 MG/DL (7-18); BUN/CREATININE RATIO 28; CALCIUM 8.7 MG/DL (8.5-10.1); CARBON DIOXIDE 20 MMOL/L (21-32); CHLORIDE 111 MMOL/L (98-107); CREATININE SERUM 1.11 MG/DL (0.60-1.30); GFR ESTIMATED > 60; GLUCOSE 129 MG/DL (70-105); POTASSIUM 4.5 MMOL/L (3.6-5.0); SODIUM 141 MMOL/L (135-145); TOTAL PROTEIN 6.3 GM/DL (6.4-8.2)
--- NOTE | 2017-01-14 17:00 | Diagnostic Imaging Report ---
INDICATION: Hypertension, dizziness, and headache. TECHNIQUE: A frontal chest was obtained at 4:40 PM. FINDINGS: The heart and mediastinal silhouette are normal in appearance. The lungs are clear. There is no pneumothorax or pleural fluid. IMPRESSION: Negative chest. Dictated by: Dictated on workstation # [id number]
[2017-01-14 17:24] LABS: BILIRUBIN,URINE NEGATIVE (NEGATIVE); KETONES,URINE NEGATIVE (NEGATIVE); LEUKOCYTE ESTERASE ,URINE 1+ (NEGATIVE); NITRITE,URINE NEGATIVE (NEGATIVE); PH,URINE 5 (5-9); PROTEIN,URINE 4+ (NEGATIVE); UROBILINOGEN,URINE NORMAL (NORMAL)
[2017-01-14 17:32] LABS: WBC,URINE 25-50 /HPF
[2017-01-14] MEDS ORDERED: cefTRIAXone INJECTION 1,000 MG in NS (IVPB) 50 ML IV ONE (17:45)
[2017-01-14 18:05] VITALS: BP 184/104
== END 2017-01-14 18:05 | disposition home or self-care (01) ==
LOC: EDUNIT# 16:08 → ER 16:10
DX: N39.0 Urinary tract infection, site not specified (principal); I10 Essential (primary) hypertension; G25.81 Restless legs syndrome; E78.00 Pure hypercholesterolemia, unspecified; F17.210 Nicotine dependence, cigarettes, uncomplicated; Z90.710 Acquired absence of both cervix and uterus; Z98.51 Tubal ligation status; Z98.890 Other specified postprocedural states; Z79.82 Long term (current) use of aspirin; Z79.84 Long term (current) use of oral hypoglycemic drugs; Z87.828 Personal history of other (healed) physical injury and trauma
CPT/HCPCS: 36415; 71010; 80053; 80306; 81000; 82962; 84484; 85025; 87077; 87088; 87186; 93005; 96361; 96365

== ENCOUNTER 2018-05-12 06:03 | Outpatient (CLI) | payer MEDICAID ==
[~2018-05-12] VITALS: Ht 160 cm; Wt 55.3 kg
[~2018-05-12 06:03] MED LIST changes: +GABA-488 PO; +IBUP-1780; +METF-397 PO; -METF500T4 PO; +METF500T8
[2018-05-12] MEDS ORDERED: ACET325T49 PO (13:46)
[2018-05-12] MEDS ORDERED: EXEN2VIA SQ (13:46)
[2018-05-12] MEDS ORDERED: HYDR-700 PO (13:46)
[2018-05-12] MEDS ORDERED: AMLO10TA6 PO (13:46)
[2018-05-12] MEDS ORDERED: INSU100V6 SQ (13:46)
[2018-05-12] MEDS ORDERED: CLOP75TA69 PO (13:46)
[2018-05-12] MEDS ORDERED: PANT40TA3 PO (13:46)
[2018-05-12] MEDS ORDERED: ATOR40TA70 PO (13:46)
[2018-05-12] MEDS ORDERED: ASPI-586 PO (13:46)
== END 2018-05-12 13:51 | disposition home or self-care (01) ==
LOC: PREOP 06:03
PROVIDERS: ATTEND Specialist
DX: Z01.818 Encounter for other preprocedural examination (principal)

== ENCOUNTER 2018-05-13 09:23 | Day surgery (SDC) | payer MEDICAID ==
[~2018-05-13] VITALS: Ht 160 cm; Wt 55.3 kg
[~2018-05-13 09:23] MED LIST changes: +ACET325T49 PO; +AMLO10TA6 PO; +ASPI-586 PO; +ATOR40TA70 PO; +CLOP75TA69 PO; +EXEN2VIA SQ; +HYDR-700 PO; +INSU100V6 SQ; +PANT40TA3 PO
[2018-05-13 09:25] VITALS: BP 164/91
[2018-05-13] MEDS ORDERED: POVIDONE (BETADINE) OPHTH SOLN 5% 30 ML OP ONE (09:45)
[2018-05-13] MEDS ORDERED: LIDOCAINE PF 1% 2 ML AMP IR PRN (09:45)
[2018-05-13] MEDS ORDERED: TIMOLOL MALEATE 0.5% 5 ML (TIMOPTIC) BTL OU PRN (09:45)
[2018-05-13] MEDS ORDERED: MOXIFLOXACIN OPHTH SOLN 5 MG/ML 0.3 ML SYRINGE OP ONE (09:45)
[2018-05-13] MEDS: TETRACAINE 0.5% OPHTH SOLN 4 ML BTL (SINGLE DOSE ONLY) OU PRN ×4 (09:46→09:57)
[2018-05-13] MEDS: CYCLOPENTOLATE 1% (CYCLOGYL) 2 ML DROPS OP SCH ×3 (09:49→09:57)
[2018-05-13] MEDS: PHENYLEPHRINE 10% OPHTH (NEO-SYN) 5 ML BTL OU SCH ×3 (09:49→09:57)
--- OUTSIDE RECORDS SUMMARY | 2018-05-13 10:14 | XMS REPORT ---
Author Author Ronnie Tom [facility] Address [address] [place], [place] [id number] Care Team Providers Care Bark Tanner Name Role Phone Ronnie Tom PCP Ronnie Tom PreferredProvider Allergies and Adverse Reactions Name Reaction Notes Phenergan PENICILLINS codeine sulfate Plan of Treatment Not available. Medications Active Name Start Date Estimated Completion Date SIG Comments Pen Needle 31 gauge x 06/12" miscellaneous needle 07/12/2013 use once a day with Lantus Embrace Blood Glucose System miscellaneous strip 07/30/2013 Test Glucose once a day. Dx:250.000 famciclovir 500 mg oral tablet 09/24/2013 TAKE 1 TABLET BY MOUTH EVERY 8 HOURS FOR 7 DAYS famciclovir 500 mg oral tablet 12/15/2013 TAKE 1 TABLET BY MOUTH EVERY 8 HOURS FOR 7 DAYS ropinirole 1 mg oral tablet 05/26/2015 TAKE 1 TABLET BY MOUTH 1 TO 3 HOURS BEFORE BEDTIME amlodipine 5 mg oral tablet take 1 tablet (5 mg) by oral route once daily pantoprazole 40 mg oral tablet,delayed release (DR/EC) take 1 tablet ( 40 mg) by oral route once daily Aspir-81 81 mg oral tablet,delayed release (DR/EC) take 1 tablet (81 mg ) by oral route once daily Tylenol 325 mg oral tablet take 1 tablet (325 mg) by oral route every 12 hours Lantus Solostar U-100 Insulin 100 unit/mL (3 mL) subcutaneous insulin pen 11/24 inject 10 units by subcutaneous route once a day BD SafetyGlide Insulin Syringe 0.3 mL 31 gauge x 10/22 miscellaneous syringe use with Lantus once daily OneTouch Ultra Blue Test Strip miscellaneous strip 12/16/2017 USE DIRECTED Ultra-Thin II (Short) Ins Syr 0.3 mL 30 gauge x 10/22 miscellaneous syringe USE DIRECTED Leonardo BCise 2 mg/0.85 mL subcutaneous auto-injector 12/24/2017 inject 2 mg by subcutaneous route every 7 days in the abdomen, thighs, or outer area of upper arm rotating injection sites triamcinolone acetonide 0.1 % topical cream 01/15/2018 apply a thin layer to the affected area(s) by topical route 2 times per day OneTouch Ultra Blue Test Strip miscellaneous strip 01/16/2018 USE DIRECTED OneTouch Ultra Blue Test Strip miscellaneous strip 03/06/2018 USE DIRECTED Zocor 20 mg oral tablet take 1 tablet (20 mg) by oral route once daily in the evening gabapentin 300 mg oral capsule 03/19/2018 09/15/2018 take 1 capsule by oral route 2 times a day for 90 days hydroxyzine HCl 25 mg oral tablet 03/19/2018 04/18/2018 take 1 tablet (25 mg ) by oral route 4 times per day as needed for 30 days Name Start Date Expiration [...] oral route once daily for 4 days metformin 500 mg oral tablet 08/27/2013 02/23/2014 [...] topical route once daily for 6 weeks famciclovir 500 mg oral tablet 02/08/2014 TAKE 1 TABLET BY MOUTH EVERY 8 HOURS FOR 7 DAYS Neupro 1 mg/24 hour transdermal patch 24 [...] hours as needed for pain. Use sparingly! amitriptyline 10 mg oral tablet 03/27/2015 take 2 tablets (20 mg) by oral route at bedtime Lyrica 100 mg oral capsule 05/15/2015 08/13/2015 take 1 capsule (100 mg) by oral route 2 times a day ferrous sulfate 325 mg (65 mg iron) oral tablet take 1 tablet by oral route 3 times a day for 30 days clindamycin HCl 300 mg oral capsule 01/28/2018 02/04/2018 take 1 capsule (300 mg) by oral route 2 times per day for 7 days Discontinued Name Start Date Discontinued Date SIG [...] take 1 tablet by oral route daily lisinopril 10 mg oral tablet 04/08/2013 take 1 tablet (10 mg) by oral route once daily metformin 850 mg oral tablet 04/08/2013 [...] by oral route 2 times a day simvastatin 20 mg oral tablet 07/14/2013 take 1 tablet (20 mg) by oral route once daily in the evening lisinopril 10 mg oral tablet 08/21/2013 TAKE ONE TABLET BY MOUTH ONCE DAILY simvastatin 20 mg oral tablet 11/13/2013 TAKE 1 TABLET BY MOUTH DAILY IN THE EVENING lisinopril 10 mg oral tablet 03/03/2014 TAKE ONE TABLET BY MOUTH ONCE DAILY metformin 500 mg oral tablet 05/19/2014 TAKE 1 TABLET BY MOUTH EVERY MORNING AND 2 TABLETS IN THE EVENING gabapentin 100 mg oral capsule 07/06/2014 03/19/2018 TAKE 2 TABLETS BY MOUTH TWICE DAILY simvastatin 20 mg oral tablet 05/26/2015 03/19/2018 TAKE 1 TABLET BY MOUTH DAILY IN THE EVENING lisinopril 10 mg oral tablet 05/26/2015 03/19/2018 TAKE 1 TABLET BY MOUTH ONCE DAILY metformin 500 mg oral tablet 05/30/2015 11/24/2017 TAKE 1 TABLET BY MOUTH EVERY MORNING AND 2 TABLETS IN THE EVENING Renal Failure metformin 1,000 mg oral tablet 03/19/2018 take 1 tablet (1,000 mg) by oral route 2 times per day with morning and evening meals for 30 days glimepiride 4 mg oral tablet 11/24/2017 take 1 tablet (4 mg) by oral route once daily Renal Failure Bactrim DS 800-160 mg oral tablet 06/12/2017 08/20/2017 Take one tab PO after supper daily Problem List Description Status Onset Diabetes Mellitus, Type II Active Hyperlipidemia Active lumbar back pain Active Cocaine dependence Active Hematuria Active 06/12/2017 Bacterial UTI Active 06/12/2017 Current smoker Active 06/12/2017 Peripheral vascular disease in diabetes mellitus Active 11/30/2017 Vital Signs Date Time BP-Sys(mm[Hg] BP-Mariana(mm[Hg]) HR(bpm) RR(rpm) Temp WT HT HC BMI BSA BMI Percentile O2 Sat(%) 03/19/2018 10:18:00 AM 120 mmHg 74 mmHg 80 bpm 16 rpm 97.7 F 115.25 lbs 64 in 19.7824 kg/m 1.5364 m 01/28/2018 11:14:00 AM 130 mmHg 70 mmHg 99 bpm 18 rpm 98.3 F 63 in 100 % 01/15/2018 8:24:00 AM 170 mmHg 90 mmHg 84 bpm 18 rpm 97.7 F 117.25 lbs 63 in 20.77 kg/m2 1.54 m2 100 % 01/01/2018 2:08:00 PM 108 mmHg 62 mmHg 98 bpm 18 rpm 97.7 F 114.25 lbs 63 in 20.2383 kg/m 1.5177 m 100 % 11/24/2017 9:25:00 AM 162 mmHg 90 mmHg 90 bpm 18 rpm 97.7 F 121.125 lbs 63 in 21.46 kg/m2 1.56 m2 100 % 08/20/2017 2:21:00 PM 120 mmHg 60 mmHg 89 bpm 96.2 F 120 lbs 63 in 21.2568 kg/m 1.5555 m 98 % 06/12/2017 9:39:00 AM 127 lbs 63.5 in 22.14 kg/m2 1.61 m2 02/24/2016 12:19:00 PM 112 bpm 18 rpm 97.6 F 121 lbs 63.5 in 21.0978 kg/m 1.5681 m 100 % 10/18/2015 10:29:00 AM 108 mmHg [...] m Social History Name Description Comments Tobacco Former smoker october 24, 2017 No Alcohol Use Cocaine History of Procedures [...] AM COMPLETE CBC W/AUTO DIFF WBC Reviewed 10/23/2011 12:00 AM COMPREHEN METABOLIC PANEL Reviewed 10/23/2011 12:00 AM LIPID PANEL Reviewed 10/23/2011 12:00 AM GLYCOSYLATED HEMOGLOBIN TEST Reviewed 10/23/2011 12:00 AM ASSAY THYROID STIM HORMONE Reviewed 10/23/2011 12:00 AM THER/PROPH/DIAG INJ SC/IM Reviewed 10/23/2011 12:00 AM Decadron 1 mg [facility]#[id number] (Negro) Reviewed 10/23/2011 12:00 AM Depo-Medrol 80 mg [facility]#[id number] Reviewed 12/03/2011 12:00 AM MAMMOGRAM SCREENING Reviewed 12/03/2011 12:00 AM TISSUE EXAM FOR FUNGI Reviewed 01/02/2012 12:00 AM GLYCOSYLATED HEMOGLOBIN TEST Reviewed 06/12/2017 2:16 PM URINALYSIS AUTO W/O SCOPE Reviewed 11/24/2017 12:00 AM COMPREHEN METABOLIC PANEL Reviewed 11/24/2017 12:00 AM GLYCOSYLATED HEMOGLOBIN TEST Reviewed 01/15/2018 9:04 AM ASSAY GLUCOSE BLOOD QUANT Reviewed 01/15/2018 9:04 AM GLUCOSE BLOOD TEST Reviewed 01/28/2018 12:00 AM Rocephin 1 gram Injection Reviewed 12/01/2012 12:00 AM Culture-Wound Reviewed 12/01/2012 12:00 AM DRAINAGE OF SKIN ABSCESS Reviewed 03/31/2013 12:00 AM COMPLETE CBC W/AUTO DIFF WBC Reviewed 03/31/2013 12:00 AM COMPREHEN METABOLIC PANEL Reviewed 03/31/2013 12:00 AM ASSAY OF LIPASE Reviewed 03/31/2013 12:00 AM X-RAY EXAM OF ABDOMEN Reviewed 03/31/2013 12:00 AM URINALYSIS AUTO W/SCOPE Reviewed 04/14/2013 12:00 AM URINALYSIS AUTO W/SCOPE Reviewed [...] AM Decadron Inj. 8mg [facility] #[address]-58 Reviewed 07/06/2009 12:00 AM Depo-Medrol 80 mg IM [facility]# [id number] Reviewed 09/15/2014 2:34 PM URINALYSIS AUTO W/O SCOPE Reviewed 09/22/2014 12:00 AM COMPREHEN METABOLIC PANEL Reviewed 09/22/2014 12:00 AM GLYCOSYLATED HEMOGLOBIN TEST Reviewed 09/15/2014 12:00 AM MAMMOGRAM SCREENING Reviewed 09/15/2014 12:00 AM DRUG SCREEN CLASS LIST A Reviewed 09/26/2014 12:00 AM MAMMOGRAM BOTH BREASTS Reviewed Results Summary Date and Description Results 07/20/2009 10:36 PM Cholest Cry Stone Ql IR 0.0 %Colonoscopy-Women and Men over 50 Declined Mammogram -Women over 40 Ordered Pap Smear Collected Hgb A1c Fr Bld 0.0 %Dialated Eye Exam- Diabetic Referred Foot Exam-Diabetic Done 07/31/2009 3:28 PM GLUCOSE 655 RECHECKED VERIFIED BY REPEAT ANALYSIS DATE/TIME CALLED: 07-31-09 1645 [facility] READ BACK BY: ALEISHA @ DR. BRISCOE'S [...] AA 72 eGFR 59 eGFR AA* >60 06/12/2017 12:00 AM Clarity Ur clear Color Ur ----- Glucose Ur-sCnc -VE Bilirub Ur Ql Strip -VE Ketones Ur Ql Strip -VE Sp Gr Ur Qn 1015 Hgb Ur Ql Strip 2+ pH Ur-LsCnc 6.0 Prot Ur Ql Strip -VE Urobilinogen Ur-mCnc -VE Nitrite Ur Ql Strip - VE WBC Est Ur Ql Strip -VE 06/12/2017 2:16 PM Clarity Ur clear Color Ur ----- Glucose Ur-sCnc -VE Bilirub Ur Ql Strip -VE Ketones Ur Ql Strip -VE Sp Gr Ur Qn 1015 Hgb Ur Ql Strip 2+ pH Ur-LsCnc 6.0 Prot Ur Ql Strip -VE Urobilinogen Ur-mCnc -VE Nitrite Ur Ql Strip - VE WBC Est Ur Ql Strip -VE 11/24/2017 11:02 AM GLUCOSE 177.0 mg/dLSODIUM 138.0 mmol/LPOTASSIUM 4.60 mmol/ LCHLORIDE 106.0 mmol/LCO2 23.0 mmol/LBUN 36.0 mg/dLCREATININE 2.50 mg/dLSGOT/ AST 25.0 IU/LSGPT/ALT 27.0 IU/LALK PHOS 129.0 IU/LTOTAL PROTEIN 7.40 g/ dLALBUMIN 3.90 g/dLTOTAL BILI 0.30 mg/dLCALCIUM 9.30 mg/dLAGE 51 GFR NonAA 20 GFR AA 24 eGFR 20 eGFR AA* 24 HGB A1C 9.30 %Est Avg Glucose 220.2 mg/dL 01/15/2018 9:04 AM Glucose SerPl-mCnc 185.0 mg/dL History Of Immunizations Not available. History of [...] 9:55AM Depressive Disorder Feb 01 2011 9:55AM Hematuria 06/12/2017 Bacterial UTI 06/12/2017 Current smoker 06/12/2017 Peripheral vascular disease in diabetes mellitus 11/30/2017 Diabetes Mellitus, Type II Apr 10 2011 [...] 10:32AM Otorrhea, left Feb 24 2016 12:21PM Urinary tract infection, site not specified Jun 12 2017 9:39AM Hematuria Jun 12 2017 9:39AM Current smoker Jun 12 2017 9:39AM Urinary tract infection, site not specified Jul 04 2017 9:22AM Hematuria Jul 04 2017 9:22AM Current smoker Jul 04 2017 9:22AM Cervicalgia Aug 20 2017 2:26PM Mechanical low back pain Aug 20 2017 2:26PM Adjustment disorder with mixed anxiety and depressed mood Aug 20 2017 2:26PM Diabetes Mellitus, Type II Nov 24 2017 9:30AM Hyperlipidemia Nov 24 2017 9:30AM Type 2 diabetes mellitus with diabetic peripheral angiopathy without gangrene Nov 24 2017 9:30AM Visit for screening mammogram Jan 01 2018 2:14PM Diabetes Mellitus, Type II Jan 01 2018 2:14PM Type 2 diabetes mellitus with diabetic peripheral angiopathy without gangrene Jan 01 2018 2:14PM Hyperlipidemia Jan 01 2018 2:14PM Chronic kidney disease (CKD), active medical management without dialysis, stage 4 (severe) Jan 01 2018 2:14PM Diabetes Mellitus, Type II Jan 15 2018 8:27AM Hyperlipidemia Jan 15 2018 8:27AM Dermatitis Jan 15 2018 8:27AM Dental infection Jan 28 2018 11:16AM Dental caries Jan 28 2018 11:16AM Musculoskeletal chest pain Mar 19 2018 10:38AM Diabetes Mellitus, Type II Mar 19 2018 10:38AM Payers Insurance Name Company Name Plan Name Plan Number Policy Number Policy Group Number Start Date [facility] - Community Plan [facility] Comm [id number] N/A [facility] Comm Plan of [id number] N/A [place] Medical Assistance Program [place] Medical Assistance Prog [id number] N/A [facility] [id number] N/A Early Detection Works [employer] [id number] N/A [facility] Financial Assistance [facility] Financial [place] [id number] N/A [facility] [place] [facility] [id number] N/A History of Encounters Visit Date Visit Type Provider 03/19/2018 Office visit Ronnie Tom DO 01/28/2018 Office visit Regi Foster HEBREW CANTOR 01/15/2018 Office visit Ronnie Tom DO 01/01/2018 Office visit Ronnie Tom DO 11/24/2017 Office visit Ronnie Tom DO 10/22/2017 [facility] Collins Mcclelland MD 09/12/2017 [facility] Collins Mcclelland MD 08/20/2017 Office visit Kash Albarran DO 07/20/2017 [facility] Amari Lazo MD 07/19/2017 [facility] Collins Mcclelland MD 07/14/2017 Surgery Zara Victor MD 06/12/2017 Office visit Zara Victor MD 06/04/2017 Hospital [place] Mcclelland MD 05/09/2017 [facility] Lalito Corado MD 05/08/2017 [facility] Collins Mcclelland MD 02/24/2016 Office visit Aleisha Childs HEBREW CANTOR 10/18/2015 Office visit Ronnie Negro DO 09/15/2014 [...] Negro DO 04/08/2013 Office visit Mack Cortes HEBREW CANTOR 04/07/2013 [facility] DO 03/31/2013 [facility] DO 03/31/2013 Office visit Regi Foster HEBREW CANTOR 12/01/2012 Office visit Regi Foster HEBREW CANTOR 03/18/2012 Office visit Ronnie Negro DO 01/06/2012 Office visit Ronnie Negro DO 01/02/2012 Office visit Lorraine Lopez HEBREW CANTOR 12/03/2011 Office visit Ronnie Negro DO 10/23/2011 Office visit Regi Foster HEBREW CANTOR 05/28/2011 Office visit Ronnie Negro DO 05/16/2011 [...]
--- OUTSIDE RECORDS SUMMARY | 2018-05-13 10:15 | XMS REPORT ---
Author Author Ronnie Tom [facility] Address [address] [place], [place] [id number] Care Team Providers Care Zoo Caretaker Name Role Phone Ronnie Tom PCP Ronnie [...] Reviewed 10/23/2011 12:00 AM Decadron 1 mg [facility]#[id number] (Negro) Reviewed 10/23/2011 12:00 AM Depo-Medrol 80 mg [facility]#[id number]-[place] Reviewed 12/03/2011 12:00 AM MAMMOGRAM SCREENING Reviewed [...] Reviewed 07/06/2009 12:00 AM Decadron Inj. 8mg [facility] #[address]-29 Reviewed 07/06/2009 12:00 AM Depo-Medrol 80 mg IM [facility]# [id number] Reviewed 09/15/2014 2:34 PM URINALYSIS AUTO W/O [...] BY REPEAT ANALYSIS DATE/TIME CALLED: 07-31-09 1645 [facility] READ BACK BY: ALEISHA @ [...] Policy Number Policy Group Number Start Date [facility] - Community Plan [facility] Comm [id number] N/A [facility] Comm Plan of [id number] N/A [place] Medical [place] Program [place] Medical Assistance Prog [id number] N/A [facility] [id number] N/A Early Detection Works Early Detection [employer] [id number] N/A [facility] Financial Assistance [facility] Financial [place] [id number] N/A [facility] [place] [facility] ONLY Free Clinic [id number] N/A History of Encounters Visit Date Visit Type Provider 03/19/2018 Office visit Ronnie Tom DO 01/28/2018 Office visit Regi Foster SYSTEMS DEVELOPMENT MANAGER 01/15/2018 Office visit Ronnie Tom DO 01/01/2018 Office visit Ronnie Tom DO 11/24/2017 Office visit Ronnie Tom DO 10/22/2017 [facility] Collins Mcclelland MD 09/12/2017 [facility] Collins Mcclelland MD 08/20/2017 Office visit Kash Albarran DO 07/20/2017 [facility] Amari Lazo MD 07/19/2017 [facility] Collins Mcclelland MD 07/14/2017 Surgery Zara Victor MD 06/12/2017 Office visit Zara Victor MD 06/04/2017 Hospital [place] Mcclelland MD 05/09/2017 [facility] Lalito Corado MD 05/08/2017 [facility] Collins Mcclelland MD 02/24/2016 Office visit Aleisha Childs SYSTEMS DEVELOPMENT MANAGER 10/18/2015 Office visit Ronnie Negro DO 09/15/2014 [...] Negro DO 04/08/2013 Office visit Mack Cortes SYSTEMS DEVELOPMENT MANAGER 04/07/2013 [facility] DO 03/31/2013 [facility] DO 03/31/2013 Office visit Regi Foster SYSTEMS DEVELOPMENT MANAGER 12/01/2012 Office visit Regi Foster SYSTEMS DEVELOPMENT MANAGER 03/18/2012 Office visit Ronnie Negro DO 01/06/2012 Office visit Ronnie Negro DO 01/02/2012 Office visit Lorraine Lopez SYSTEMS DEVELOPMENT MANAGER 12/03/2011 Office visit Ronnie Negro DO 10/23/2011 Office visit Regi Foster SYSTEMS DEVELOPMENT MANAGER 05/28/2011 Office visit Ronnie Negro DO 05/16/2011 [...]
--- OUTSIDE RECORDS SUMMARY | 2018-05-13 10:16 | XMS REPORT ---
Author Author Regi Foster [facility] Address [address] [place], [place] [id number] Care Team Providers Care Civil Engineering Professor Name Role Phone Regi Foster PCP Ronnie Tom PreferredProvider Allergies and Adverse Reactions Name Reaction Notes Phenergan PENICILLINS codeine sulfate Plan of Treatment Planned Activity Comments Planned Date Planned Time Plan/Goal Mammogram, screening, bilateral 01/01/2018 12:00 AM Medications Active Name Start Date Estimated Completion Date SIG Comments lisinopril 10 mg oral tablet 04/08/2013 take 1 tablet (10 mg) by oral route once daily Pen Needle 31 gauge x 1/4" miscellaneous needle 07/12/2013 use once a day with Lantus FanTree Blood Glucose System miscellaneous strip 07/30/2013 Test [...] TAKE ONE TABLET BY MOUTH ONCE DAILY gabapentin 100 mg oral capsule 07/06/2014 TAKE 2 TABLETS BY MOUTH TWICE DAILY simvastatin 20 mg oral tablet 05/26/2015 TAKE 1 TABLET BY MOUTH DAILY IN THE EVENING ropinirole 1 mg oral tablet 05/26/2015 TAKE 1 TABLET BY MOUTH 1 TO 3 HOURS BEFORE BEDTIME lisinopril 10 mg oral tablet 05/26/2015 TAKE 1 TABLET BY MOUTH ONCE DAILY hydroxyzine HCl 25 mg oral tablet take 1 tablet (25 mg) by oral route 4 times per day as needed for 30 days metformin 1,000 mg oral tablet take 1 tablet (1,000 mg) by oral route 2 times per day with morning and evening meals for 30 days amlodipine 5 mg oral tablet take 1 [...] miscellaneous syringe use with Lantus once daily gabapentin 300 mg oral capsule 11/24/2017 TAKE 1 CAPSULE BY MOUTH ONCE DAILY OneTouch Ultra Blue Test Strip miscellaneous strip 12/16/2017 USE DIRECTED Ultra-Thin II (Short) Ins Syr 0.3 mL 30 gauge x 10/22 miscellaneous syringe USE DIRECTED Byjosereon BCise 2 mg/0.85 mL subcutaneous auto-injector 12/24/2017 inject 2 mg by subcutaneous route every 7 days in the abdomen, thighs, or outer area of upper arm rotating injection sites triamcinolone acetonide 0.1 % topical cream 01/15/2018 apply a thin layer to the affected area(s) by topical route 2 times per day NATION TechnologiesTouch Ultra Blue Test Strip miscellaneous strip 01/16/2018 USE DIRECTED clindamycin HCl 300 mg oral capsule 01/28/2018 02/04/2018 take 1 capsule (300 mg) by oral route 2 times per day for 7 days Name Start Date Expiration Date SIG [...] 3 times a day for 30 days Discontinued Name Start Date Discontinued Date [...] by oral route 2 times a day metformin 500 mg oral tablet 05/19/2014 TAKE 1 TABLET BY MOUTH EVERY MORNING AND 2 TABLETS IN THE EVENING metformin 500 mg oral tablet 05/30/2015 11/24/2017 TAKE 1 TABLET BY MOUTH EVERY MORNING AND 2 TABLETS IN THE EVENING Renal Failure glimepiride 4 mg oral tablet 11/24/2017 take 1 tablet (4 mg) by oral route once daily Renal Failure Bactrim DS 800-160 mg oral tablet 06/12/2017 08/20/2017 Take one tab PO after supper daily Problem List Description Status Onset Diabetes mellitus, type II Active Hyperlipidemia Active lumbar back pain Active Cocaine dependence Active Hematuria Active 06/12/2017 Bacterial UTI Active 06/12/2017 Current smoker Active 06/12/2017 Peripheral vascular disease in diabetes mellitus Active 11/30/2017 Vital Signs Date Time BP-Sys(mm[Hg] BP-Mariana(mm[Hg]) HR(bpm) RR(rpm) Temp WT HT HC BMI BSA BMI Percentile O2 Sat(%) 01/28/2018 11:14:00 AM 130 mmHg 70 mmHg [...] Reviewed 10/23/2011 12:00 AM Decadron 1 mg [facility]#[id number] (Negro) Reviewed 10/23/2011 12:00 AM Depo-Medrol 80 mg [facility]#[id number]-Yhyraxyp Reviewed 12/03/2011 12:00 AM MAMMOGRAM SCREENING Reviewed [...] 07/06/2009 12:00 AM Decadron Inj. 8mg [facility] #[id number] Reviewed 07/06/2009 12:00 AM Depo-Medrol 80 mg IM [facility]# [address]-97 Reviewed 09/15/2014 2:34 PM URINALYSIS AUTO W/O [...] VERIFIED BY REPEAT ANALYSIS DATE/TIME CALLED: 07-31-09 [phone] [facility] READ BACK BY: ALEISHA @ DR. BRISCOE'Sal SODIUM 135.0 mmol/ LPOTASSIUM 4.30 mmol/LCHLORIDE 98.0 [...] Dermatitis Jul 06 2009 8:22AM Hyperlipidemia Diabetes mellitus, type II lumbar back pain with radiculopathy Routine [...] Type II Jul 12 2013 3:52PM Hyperlipidemia b 2013 3:52PM Fatigue b 2013 3:52PM Neuralgia b 2013 3:52PM Essential Hypertension Jul 29 2013 [...] 11:16AM Dental caries Jan 28 2018 11:16AM Payers Insurance Name Company Name Plan Name Plan Number Policy Number Policy Group Number Start Date [facility] - Community Plan [facility] RHC Comm [id number] N/A [facility] Comm Plan of [id number] N/A [place] [employer] Assistance [facility] Medical Assistance Prog [id number] N/A [facility] [id number] N/A Early Detection Works Early Detection Works [id number] N/A [employer] Financial Assistance [facility] Financial [place] [id number] N/A [facility] - [place] [facility] ONLY Free Clinic [id number] N/A History of Encounters Visit Date Visit Type Provider 01/28/2018 Office visit Regi Foster HAT IRONER 01/15/2018 Office visit Ronnie Tom DO 01/01/2018 Office visit Ronnie Tom DO 11/24/2017 Office visit Ronnie Tom DO 10/22/2017 [facility] Collins Mcclelland MD 09/12/2017 [facility] Collins Mcclelland MD 08/20/2017 Office visit Kash Albarran DO 07/20/2017 [facility] Amari Lazo MD 07/19/2017 [facility] Collins Mcclelland MD 07/14/2017 Surgery Zara Victor MD 06/12/2017 Office visit Zara Victor MD 06/04/2017 Hospital [place] Mcclelland MD 05/09/2017 [facility] Lalito Corado MD 05/08/2017 [facility] Collins Mcclelland MD 02/24/2016 Office visit Aleisha Childs HAT IRONER 10/18/2015 Office visit Ronnie Tom DO 09/15/2014 [...] visit Ronnie Tom DO 04/08/2013 Office visit aMck Cortes HAT IRONER 04/07/2013 Hospital [facility] DO 03/31/2013 [facility] DO 03/31/2013 Office visit Regi Cristian HAT IRONER 12/01/2012 Office visit Reig Cristian HAT IRONER 03/18/2012 Office visit Ronnie Tom DO 01/06/2012 Office visit Ronnie Tom DO 01/02/2012 Office visit Lorraine Lopez HAT IRONER 12/03/2011 Office visit Ronnie Tom DO 10/23/2011 Office visit Regi Cristian HAT IRONER 05/28/2011 Office visit Ronnie Tom DO 05/16/2011 [...]
[2018-05-13] MEDS ORDERED: MIDAZOLAM 2 MG/2 ML (VERSED) VIAL ONE (10:18)
--- OUTSIDE RECORDS SUMMARY | 2018-05-13 10:18 | XMS REPORT ---
Author Author Regi Foster [facility] Address [address] [place], [place] [address] Care Team Providers Care Wastewater Project Engineer Name Role Phone Regi Foster PCP Ronnie [...] 07/12/2013 use once a day with Lantus [employer] Blood Glucose System miscellaneous strip 07/30/2013 Test [...] by topical route 2 times per day Crossbeam SystemsTouch Ultra Blue Test Strip miscellaneous strip 01/16/2018 [...] Reviewed 10/23/2011 12:00 AM Decadron 1 mg [facility]#[id number] (Negro) Reviewed 10/23/2011 12:00 AM Depo-Medrol 80 mg [facility]#[id number] Reviewed 12/03/2011 12:00 AM MAMMOGRAM SCREENING Reviewed [...] Reviewed 07/06/2009 12:00 AM Decadron Inj. 8mg [facility] #[id number] Reviewed 07/06/2009 12:00 AM Depo-Medrol 80 mg IM [facility]# [address]-71 Reviewed 09/15/2014 2:34 PM URINALYSIS AUTO W/O [...] VERIFIED BY REPEAT ANALYSIS DATE/TIME CALLED: 07-31-[phone] [facility] READ BACK BY: ALEISHA @ DR. BRISCOE'Sal [...] Policy Number Policy Group Number Start Date [facility] - Community Plan [facility] RHC Comm [id number] N/A [facility] Comm Plan of [id number] N/A [place] [employer] Assistance [facility] Medical Assistance Prog [id number] N/A [facility] [id number] N/A Early Detection Works Early Detection Works [id number] N/A [employer] Financial Assistance [facility] Financial [place] [id number] N/A [facility] - [place] [facility] ONLY [facility] [id number] N/A History of Encounters Visit Date Visit Type Provider 01/28/2018 Office visit Regi Foster [place]MONT GOLD ATTENDANT 01/15/2018 Office visit Ronnie Tom DO 01/01/2018 Office visit Ronnie Tom DO 11/24/2017 Office visit Ronnie Tom DO 10/22/2017 [facility] Collins Mcclelland MD 09/12/2017 [facility] Collins Mcclelland MD 08/20/2017 Office visit Kash Albarran DO 07/20/2017 [facility] Amari Lazo MD 07/19/2017 [facility] Collins Mcclelland MD 07/14/2017 Surgery Zara Victor MD 06/12/2017 Office visit Zara Victor MD 06/04/2017 Hospital [facility] Mcclelland MD 05/09/2017 [facility] Lalito Corado MD 05/08/2017 [facility] Collins Mcclelland MD 02/24/2016 Office visit Aleisha Childs [place]MONT GOLD ATTENDANT 10/18/2015 Office visit Ronnie Tom DO 09/15/2014 [...] Tom DO 04/08/2013 Office visit Mack Cortes [place]M[place] GOLD ATTENDANT 04/07/2013 [facility] DO 03/31/2013 [facility] DO 03/31/2013 Office visit Regi Cristian [place] GOLD ATTENDANT 12/01/2012 Office visit Regi Cristian [place] GOLD ATTENDANT 03/18/2012 Office visit Ronnie Tom DO 01/06/2012 Office visit Ronnie Tom DO 01/02/2012 Office visit Lorraine Lopez [place] GOLD ATTENDANT 12/03/2011 Office visit Ronnie Tom DO 10/23/2011 Office visit Regi Cristian [place]M[place] GOLD ATTENDANT 05/28/2011 Office visit Ronnie Tom DO 05/16/2011 [...]
--- OUTSIDE RECORDS SUMMARY | 2018-05-13 10:19 | XMS REPORT ---
Author Author Ronnie Tom [facility] Address [address] [place], [place] [address] Care Team Providers Care Sales And Merchandising Representative Name Role Phone Ronnie Tom PCP Ronnie [...] once daily Pen Needle 31 gauge x 06/12" miscellaneous needle 07/12/2013 use once a day with Lantus [employer] Blood Glucose System miscellaneous strip 07/30/2013 Test [...] Test Strip miscellaneous strip 01/16/2018 USE DIRECTED Name Start Date Expiration Date SIG Comments [...] hours as needed for pain Changing to 10 citalopram 20 mg oral tablet 08/22/2011 10/23/2011 [...] HC BMI BSA BMI Percentile O2 Sat(%) 01/15/2018 8:24:00 AM 170 mmHg 90 mmHg 84 bpm 18 rpm 97.7 F 117.25 lbs 63 in 20.7697 kg/m 1.5375 m 100 % 01/01/2018 2:08:00 PM 108 mmHg 62 mmHg 98 bpm 18 rpm 97.7 F 114.25 lbs 63 in 20.24 kg/m2 1.52 m2 100 % 11/24/2017 9:25:00 AM 162 mmHg 90 mmHg 90 bpm 18 rpm 97.7 F 121.125 lbs 63 in 21.4561 kg/m 1.5627 m 100 % 08/20/2017 2:21:00 PM 120 mmHg 60 mmHg 89 bpm 96.2 F 120 lbs 63 in 21.26 kg/m2 1.56 m2 98 % 06/12/2017 9:39:00 AM 127 lbs 63.5 in 22.1439 kg/m 1.6065 m 02/24/2016 12:19:00 PM 112 bpm 18 rpm [...] Reviewed 10/23/2011 12:00 AM Decadron 1 mg [facility]#[id number] (Negro) Reviewed 10/23/2011 12:00 AM Depo-Medrol 80 mg [facility]#[id number]-Pehfltkw Reviewed 12/03/2011 12:00 AM MAMMOGRAM SCREENING Reviewed 12/03/2011 12:00 AM TISSUE EXAM FOR FUNGI Reviewed 01/02/2012 12:00 AM GLYCOSYLATED HEMOGLOBIN TEST Reviewed 06/12/2017 2:16 PM URINALYSIS AUTO W/O SCOPE Reviewed 11/24/2017 12:00 AM COMPREHEN METABOLIC PANEL Reviewed 11/24/2017 12:00 AM GLYCOSYLATED HEMOGLOBIN TEST Reviewed 01/15/2018 9:04 AM ASSAY GLUCOSE BLOOD QUANT Reviewed 01/15/2018 9:04 AM GLUCOSE BLOOD TEST Reviewed 12/01/2012 12:00 AM Culture-Wound Reviewed 12/01/2012 [...] Reviewed 07/06/2009 12:00 AM Decadron Inj. 8mg [facility] #[address]-81 Reviewed 07/06/2009 12:00 AM Depo-Medrol 80 mg IM [facility]# [address]-09 Reviewed 09/15/2014 2:34 PM URINALYSIS AUTO W/O [...] VERIFIED BY REPEAT ANALYSIS DATE/TIME CALLED: 07-31-09 [phone] [facility] READ BACK BY: ALEISHA @ DR. MAGALLON SODIUM 135.0 mmol/ LPOTASSIUM 4.30 mmol/LCHLORIDE 98.0 [...] 2018 8:27AM Dermatitis Jan 15 2018 8:27AM Payers Insurance Name Company Name Plan Name Plan Number Policy Number Policy Group Number Start Date [facility] - Community [facility] RHC Comm [id number] N/A [facility] Comm Plan of [id number] N/A [place] Medical Assistance Program [place] Medical Assistance Prog [id number] N/A Childrens [facility] [id number] N/A Early Detection Works Early Detection Works [id number] N/A [employer] Financial Assistance [employer] Financial [place] [id number] N/A [facility] - [place] [facility] ONLY [facility] [id number] N/A History of Encounters Visit Date Visit Type Provider 01/15/2018 Office visit Ronnie Tom DO 01/01/2018 Office visit Ronnie Tom DO 11/24/2017 Office visit Ronnie Tom DO 10/22/2017 [facility] Collins Mcclelland MD 09/12/2017 [facility] Collins Mcclelland MD 08/20/2017 Office visit Kash Albarran DO 07/20/2017 [facility] Amari Lazo MD 07/19/2017 [facility] Collins Mcclelland MD 07/14/2017 Surgery Zara Victor MD 06/12/2017 Office visit Zara Victor MD 06/04/2017 [facility] Collins Mcclelland MD 05/09/2017 [facility] Lalito Corado MD 05/08/2017 [facility] Collins Mcclelland MD 02/24/2016 Office visit Aleisha Childs APRN 10/18/2015 Office visit Ronnie Tom DO 09/15/2014 [...] Tom DO 04/08/2013 Office visit Mack Cortes AUTO GLASS INSTALLER 04/07/2013 [facility] DO 03/31/2013 [facility] DO 03/31/2013 Office visit Regi Cristian AUTO GLASS INSTALLER 12/01/2012 Office visit Regi Cristian AUTO GLASS INSTALLER 03/18/2012 Office visit Ronnie Tom DO 01/06/2012 Office visit Ronnie Tom DO 01/02/2012 Office visit Lorraine Jessica AUTO GLASS INSTALLER 12/03/2011 Office visit Ronnie Tom DO 10/23/2011 Office visit Regi Foster AUTO GLASS INSTALLER 05/28/2011 Office visit Ronnie Tom DO 05/16/2011 [...]
--- OUTSIDE RECORDS SUMMARY | 2018-05-13 10:20 | XMS REPORT ---
Author Author Ronnie Tom [facility] Address [address] [place], [place] [address] Care Team Providers Care Stretcher Operator Name Role Phone Ronnie Tom PCP Ronnie [...] 07/12/2013 use once a day with Lantus [employer] Blood Glucose System miscellaneous strip 07/30/2013 Test [...] Reviewed 10/23/2011 12:00 AM Decadron 1 mg [facility]#[id number] (Negro) Reviewed 10/23/2011 12:00 AM Depo-Medrol 80 mg [facility]#[id number]-Tvnasjot Reviewed 12/03/2011 12:00 AM MAMMOGRAM SCREENING Reviewed [...] Reviewed 07/06/2009 12:00 AM Decadron Inj. 8mg [facility] #[id number] Reviewed 07/06/2009 12:00 AM Depo-Medrol 80 mg IM [facility]# [address]-46 Reviewed 09/15/2014 2:34 PM URINALYSIS AUTO W/O [...] VERIFIED BY REPEAT ANALYSIS DATE/TIME CALLED: 07-31-09 [phone] [facility] READ BACK BY: ALEISHA @ DR. MAGALLON [...] Policy Number Policy Group Number Start Date [facility] - [facility] - Community [facility] RHC Comm [id number] N/A [facility] Comm Plan of [id number] N/A [place] Medical Assistance Program [place] Medical Assistance Prog [id number] N/A Childrens [facility] [id number] N/A Early Detection Works Early Detection Works [id number] N/A [employer] Financial Assistance [employer] Financial [place] [id number] N/A [place] [facility] - [place] Community Clinic ONLY Free Clinic [id number] N/A History of Encounters Visit Date Visit [...] 06/12/2017 Office visit Zara Victor MD 06/04/2017 [facility] Collins Mcclelland MD 05/09/2017 [facility] Tom DO 04/08/2013 Office visit Mack Cortes ROUTEMAN 04/07/2013 [facility] DO 03/31/2013 [facility] DO 03/31/2013 Office visit Regi Cristian ROUTEMAN 12/01/2012 Office visit Regi Cristian ROUTEMAN 03/18/2012 Office visit Ronnie Tom DO 01/06/2012 Office visit Ronnie Tom DO 01/02/2012 Office visit Lorraine Jessica ROUTEMAN 12/03/2011 Office visit Ronnie Tom DO 10/23/2011 Office visit Regi Foster ROUTEMAN 05/28/2011 Office visit Ronnie Tom DO 05/16/2011 Office visit Ronnie Tom DO 04/10/2011 Office visit Ronnie Tom DO 02/01/2011 Office visit Ronnie Tmo DO 12/27/2010 Office visit Ronnie Tom DO 10/09/2010 Office visit Ronnie Tom DO 01/15/2010 Office visit Alma Rosa [place] [facility] 09/07/2009 Office visit Ronnie Tom DO 08/07/2009 Office visit Ronnie Tom DO 07/18/2009 Office visit Ronnie Tom DO 07/06/2009 Office visit Ronnie Tom DO 04/06/2009 Office visit Ronnie Tom DO
--- OUTSIDE RECORDS SUMMARY | 2018-05-13 10:22 | XMS REPORT ---
Author Author Ronnie Tom [facility] Address [address] [place], [place] [address] Care Team Providers Care Construction Accountant Name Role Phone Ronnie Tom PCP Ronnie [...] 07/12/2013 use once a day with Lantus [employer]bookpie Blood Glucose System miscellaneous strip 07/30/2013 Test [...] Ins Syr 0.3 mL 30 gauge x 16 miscellaneous syringe USE DIRECTED Leonardo BCise 2 mg/0.85 mL subcutaneous auto-injector 12/24/2017 inject 2 mg by subcutaneous route every 7 days in the abdomen, thighs, or outer area of upper arm rotating injection sites triamcinolone acetonide 0.1 % topical cream 01/15/2018 apply a thin layer to the affected area(s) by topical route 2 times per day Name Start Date Expiration Date SIG [...] Reviewed 10/23/2011 12:00 AM Decadron 1 mg [facility]#[id number] (Negro) Reviewed 10/23/2011 12:00 AM Depo-Medrol 80 mg [facility]#[id number] Reviewed 12/03/2011 12:00 AM MAMMOGRAM SCREENING Reviewed [...] Reviewed 07/06/2009 12:00 AM Decadron Inj. 8mg [facility] #[address]-46 Reviewed 07/06/2009 12:00 AM Depo-Medrol 80 mg IM [facility]# [address]-22 Reviewed 09/15/2014 2:34 PM URINALYSIS AUTO W/O [...] VERIFIED BY REPEAT ANALYSIS DATE/TIME CALLED: 07-31-09 [phone] [facility] READ BACK BY: ALEISHA @ DR. BRISCOE'Vazquez SODIUM 135.0 mmol/ LPOTASSIUM 4.30 mmol/LCHLORIDE 98.0 [...] stage 4 (severe) Jan 01 2018 2:14PM Payers Insurance Name Company Name Plan Name Plan Number Policy Number Policy Group Number Start Date [facility] Comm [id number] N/A [facility] [employer] Comm Plan of [id number] N/A [place] Medical Assistance [facility] Medical Assistance Prog [id number] N/A [facility]vazquez [facility] [id number] N/A Early Detection Works Early Detection Works [id number] N/A N(i)² Financial Assistance [employer] Financial [place] [id number] N/A [facility] - [place] Community Clinic ONLY [facility] Clinic [id number] N/A History of Encounters Visit Date Visit Type Provider 01/15/2018 Office visit Ronnie Tom DO 01/01/2018 Office visit Ronnie Tom DO 11/24/2017 Office visit Ronnie Tom DO 10/22/2017 Hospital Collins Mcclelland MD 09/12/2017 [facility] Collins Mcclelland MD 08/20/2017 Office visit Kash Albarran DO 07/20/2017 [facility] Amari Lazo MD 07/19/2017 [facility] Collins Mcclelland MD 07/14/2017 Surgery Zara Victor MD 06/12/2017 Office visit Zara Victor MD 06/04/2017 [facility] Collins Mcclelland MD 05/09/2017 [facility] Lalito Corado MD 05/08/2017 [facility] Collins Mcclelland MD 02/24/2016 Office visit Aleisha Childs PILOT PLANT TECHNICIAN 10/18/2015 Office visit Ronnie Tom DO 09/15/2014 [...] Tom DO 04/08/2013 Office visit Mack Cortes PILOT PLANT TECHNICIAN 04/07/2013 [facility] DO 03/31/2013 [facility] DO 03/31/2013 Office visit Regi Foster PILOT PLANT TECHNICIAN 12/01/2012 Office visit Regi Foster PILOT PLANT TECHNICIAN 03/18/2012 Office visit Ronnie Tom DO 01/06/2012 Office visit Ronnie Tom DO 01/02/2012 Office visit Lorrainedeepali Lopez PILOT PLANT TECHNICIAN 12/03/2011 Office visit Ronnie Tom DO 10/23/2011 Office visit Regi Foster PILOT PLANT TECHNICIAN 05/28/2011 Office visit Ronnie Tom DO 05/16/2011 [...]
--- OUTSIDE RECORDS SUMMARY | 2018-05-13 10:23 | XMS REPORT ---
Author Author Ronnie Tom [facility] Address [address] [place], [place] [address] Care Team Providers Care Bomb Squad Commander Name Role Phone Ronnie Tom PCP Ronnie [...] 07/12/2013 use once a day with Lantus [employer] Blood Glucose System miscellaneous strip 07/30/2013 Test [...] area of upper arm rotating injection sites Name Start Date Expiration Date SIG Comments [...] HC BMI BSA BMI Percentile O2 Sat(%) 01/01/2018 2:08:00 PM 108 mmHg 62 mmHg [...] m Social History Name Description Comments Tobacco Current every day smoker No Alcohol Use Cocaine History of Procedures [...] 10/23/2011 12:00 AM Decadron [address] [facility]#[id number] (Negro) Reviewed 10/23/2011 12:00 AM Depo-Medrol [address] [facility]#[id number] Reviewed 12/03/2011 12:00 AM MAMMOGRAM SCREENING Reviewed 12/03/2011 12:00 AM TISSUE EXAM FOR FUNGI Reviewed 01/02/2012 12:00 AM GLYCOSYLATED HEMOGLOBIN TEST Reviewed 06/12/2017 2:16 PM URINALYSIS AUTO W/O SCOPE Reviewed 11/24/2017 12:00 AM COMPREHEN METABOLIC PANEL Reviewed 11/24/2017 12:00 AM GLYCOSYLATED HEMOGLOBIN TEST Reviewed 12/01/2012 12:00 AM Culture-Wound Reviewed [...] 07/06/2009 12:00 AM Decadron Inj. [address] [facility] #[id number] Reviewed 07/06/2009 12:00 AM Depo-Medrol [address] [facility]# [id number] Reviewed 09/15/2014 2:34 PM URINALYSIS AUTO W/O [...] VERIFIED BY REPEAT ANALYSIS DATE/TIME CALLED: 07-31-09 [phone] [facility] READ BACK BY: ALEISHA @ [...] A1C 9.30 %Est Avg Glucose 220.2 mg/dL History Of Immunizations Not available. History [...] 2013 3:52PM Hyperlipidemia b 2013 3:52PM Fatigue Jul 12 2013 3:52PM Neuralgia b 2013 3:52PM Essential [...] Policy Number Policy Group Number Start Date [facility] Comm [id number] N/A [facility] Comm Plan of [id number] N/A [place] Medical Assistance Program [place] Medical Assistance Prog [id number] N/A Childrens [facility] Childrens [facility] [id number] N/A Early Detection Works Early Detection Works [id number] N/A [employer] Financial Assistance [employer] Financial [place] [id number] N/A [facility] - [place] Community Clinic ONLY Free Clinic [id number] N/A History of Encounters Visit Date Visit Type Provider 01/01/2018 Office visit Ronnie Tom DO 11/24/2017 Office visit Ronnie Negro DO 10/22/2017 Hospital Collins Mcclelland MD 09/12/2017 [facility] Collins Mcclelland MD 08/20/2017 Office visit Kash Deion DO 07/20/2017 [facility] Amari Lazo MD 07/19/2017 [facility] Collins Mcclelland MD 07/14/2017 Surgery Zara Victor MD 06/12/2017 Office visit Zara Victor MD 06/04/2017 Hospital Collins Mcclelland MD 05/09/2017 [facility] Lalito Corado MD 05/08/2017 [facility] Collins Mcclelland MD 02/24/2016 Office visit Aleisha Childs CLINICAL MENTAL HEALTH COUNSELOR 10/18/2015 Office visit Ronnie Negro DO 09/15/2014 [...] Negro DO 04/08/2013 Office visit Mack Cortes CLINICAL MENTAL HEALTH COUNSELOR 04/07/2013 [facility] DO 03/31/2013 [facility] DO 03/31/2013 Office visit Regi Foster CLINICAL MENTAL HEALTH COUNSELOR 12/01/2012 Office visit Regi Foster CLINICAL MENTAL HEALTH COUNSELOR 03/18/2012 Office visit Ronnie Negro DO 01/06/2012 Office visit Ronnie Negro DO 01/02/2012 Office visit Lorraine Lopez CLINICAL MENTAL HEALTH COUNSELOR 12/03/2011 Office visit Ronnie Negro DO 10/23/2011 Office visit Regi Foster CLINICAL MENTAL HEALTH COUNSELOR 05/28/2011 Office visit Ronnie Negro DO 05/16/2011 [...]
--- NOTE | 2018-05-13 10:24 | Ophthalmologist Pre-Op Note ---
Pre-Operative Progress Note H&P Reviewed The H&P was reviewed, patient examined and no changes noted. Date H&P Reviewed: May 13, 2018 Time H&P Reviewed: 10:24 Pre-Op Dx Cataract, Right Eye MOSES ARMSTRONG MD May 13, 2018 10:24
--- OUTSIDE RECORDS SUMMARY | 2018-05-13 10:25 | XMS REPORT ---
Author Author Ronnie Tom [facility] Address [address] [place], [place] [address] Care Team Providers Care Senior Web Engineer Name Role Phone Ronnie Tom PCP Ronnie [...] needle 07/12/2013 use once a day with [employer] Blood Glucose System miscellaneous strip 07/30/2013 Test [...] Insulin Syringe 0.3 mL 31 gauge x 16 miscellaneous syringe use with Lantus once daily [...] HC BMI BSA BMI Percentile O2 Sat(%) 11/24/2017 9:25:00 AM 162 mmHg 90 mmHg [...] Reviewed 10/23/2011 12:00 AM Decadron 1 mg [facility]#[id number] (Negro) Reviewed 10/23/2011 12:00 AM Depo-Medrol 80 mg [facility]#[id number] Reviewed 12/03/2011 12:00 AM MAMMOGRAM SCREENING Reviewed [...] Reviewed 07/06/2009 12:00 AM Decadron Inj. 8mg [facility] #[address]-39 Reviewed 07/06/2009 12:00 AM Depo-Medrol 80 mg IM [facility]# [address]-15 Reviewed 09/15/2014 2:34 PM URINALYSIS AUTO W/O [...] BY REPEAT ANALYSIS DATE/TIME CALLED: 07-31-09 1645 [facility] READ BACK BY: ALEISHA @ DR. BRISCOE'S [...] Type II Jul 12 2013 3:52PM Hyperlipidemia Feb 2013 3:52PM Fatigue Feb 2013 3:52PM Neuralgia Feb 2013 3:52PM Essential Hypertension Jul 29 2013 2:38PM Diabetes Mellitus, Type II, Uncontrolled Jul 29 2013 2:38PM Hemorrhoids Jul 29 2013 2:38PM Fatigue b 2013 2:38PM Diabetes Mellitus, Type II Aug [...] angiopathy without gangrene Nov 24 2017 9:30AM Payers Insurance Name Company Name Plan Name Plan Number Policy Number Policy Group Number Start Date [facility] Comm [id number] N/A [facility] Comm Plan of [id number] N/A [place] Medical Assistance Program [place] Medical Assistance Prog [id number] N/A [facility] [id number] N/A Early Detection Works Early Detection Works [id number] N/A [employer] Financial Assistance [facility] Financial [place] [id number] N/A [facility] - [place] Community Clinic ONLY Free Clinic [id number] N/A History of Encounters Visit Date Visit Type Provider 11/24/2017 Office visit Ronnie Tom DO 10/22/2017 [facility] Collins Mcclelland MD 09/12/2017 [facility] Collins Mcclelland MD 08/20/2017 Office visit Kash Albarran DO 07/20/2017 [facility] Amari Lazo MD 07/19/2017 Hospital Collins Mcclelland MD 07/14/2017 Surgery Zara Victor MD 06/12/2017 Office visit Zaar Victor MD 06/04/2017 [facility] Collins Mcclelland MD 05/09/2017 [facility] Lalito Corado MD 05/08/2017 [facility] Collins Mcclelland MD 02/24/2016 Office visit Aleisha Childs APRN 10/18/2015 Office visit Ronnie Tom DO 09/15/2014 Office visit Ronnie Negro DO [...] Negro DO 04/08/2013 Office visit Mack Cortes PARTS IDENTIFICATION TECHNICIAN 04/07/2013 Hospital [facility] DO 03/31/2013 [facility] DO 03/31/2013 Office visit Regi Foster PARTS IDENTIFICATION TECHNICIAN 12/01/2012 Office visit Regi Foster PARTS IDENTIFICATION TECHNICIAN 03/18/2012 Office visit Ronnie Negro DO 01/06/2012 Office visit Ronnie Tom DO 01/02/2012 Office visit Lorraine Lopez PARTS IDENTIFICATION TECHNICIAN 12/03/2011 Office visit Ronnie Tom DO 10/23/2011 Office visit Regi Foster PARTS IDENTIFICATION TECHNICIAN 05/28/2011 Office visit Ronnie Negro DO 05/16/2011 Office visit Ronnie Negro DO 04/10/2011 Office visit Ronnie Negro DO 02/01/2011 Office visit Ronnie Negro DO 12/27/2010 Office visit Ronnie Negro DO 10/09/2010 Office visit Ronnie Negro DO 01/15/2010 Office visit Alma Rosa DE LA ROSA 09/07/2009 Office visit Ronnie Negro DO 08/07/2009 Office visit Ronnie Huntte DO 07/18/2009 Office visit Ronnie Negro DO 07/06/2009 Office visit Ronnie Negro DO 04/06/2009 Office visit Ronnie Negro DO
--- OUTSIDE RECORDS SUMMARY | 2018-05-13 10:26 | XMS REPORT ---
Author Author Ronnie Tom [facility] Address [address] [place], [place] [address] Care Team Providers Care Curriculum Assistant Principal Name Role Phone Ronnie Tom PCP Ronnie [...] needle 07/12/2013 use once a day with [employer] Blood Glucose System miscellaneous strip 07/30/2013 Test [...] Reviewed 10/23/2011 12:00 AM Decadron 1 mg [facility]#[id number] (Negro) Reviewed 10/23/2011 12:00 AM Depo-Medrol 80 mg [facility]#[id number] Reviewed 12/03/2011 12:00 AM MAMMOGRAM SCREENING Reviewed [...] Reviewed 07/06/2009 12:00 AM Decadron Inj. 8mg [facility] #[address]-59 Reviewed 07/06/2009 12:00 AM Depo-Medrol 80 mg IM [facility]# [address]-40 Reviewed 09/15/2014 2:34 PM URINALYSIS AUTO W/O [...] BY REPEAT ANALYSIS DATE/TIME CALLED: 07-31-09 1645 [facility] READ BACK BY: ALEISHA @ DR. [...] Number Policy Group Number Start Date [facility] Comm [id number] N/A [facility] Comm Plan of [id number] N/A [place] Medical Assistance Program [place] Medical [place] Prog [id number] N/A [facility] [id number] N/A Early Detection Works Early Detection Works [id number] N/A [employer] Financial Assistance [facility] Financial [place] [id number] N/A [facility] [place] [facility] [place] [facility] [id number] N/A History of Encounters Visit Date Visit Type Provider 11/24/2017 Office visit Ronnie Tom DO 10/22/2017 [facility] Collins Mcclelland MD 09/12/2017 [facility] Collins Mcclelland MD 08/20/2017 Office visit Kash Albarran DO 07/20/2017 [facility] Amari Lazo MD 07/19/2017 Hospital [place] Mcclelland MD 07/14/2017 Surgery Zara Victor MD 06/12/2017 Office visit Zara Victor MD 06/04/2017 [facility] Collins Mcclelland MD 05/09/2017 [facility] Lalito Corado MD 05/08/2017 [facility] Collins Mcclelland MD 02/24/2016 Office visit [...] Negro DO 04/08/2013 Office visit Mack Cortes TECHNICAL SERVICE SPECIALIST 04/07/2013 Hospital [facility] DO 03/31/2013 [facility] DO 03/31/2013 Office visit Regi Foster TECHNICAL SERVICE SPECIALIST 12/01/2012 Office visit Regi Foster TECHNICAL SERVICE SPECIALIST 03/18/2012 Office visit Ronnie Negro DO 01/06/2012 Office visit Ronnie Tom DO 01/02/2012 Office visit Lorraine Lopez TECHNICAL SERVICE SPECIALIST 12/03/2011 Office visit Ronnie Tom DO 10/23/2011 Office visit Regi Foster TECHNICAL SERVICE SPECIALIST 05/28/2011 Office visit Ronnie Negro DO 05/16/2011 [...]
--- OUTSIDE RECORDS SUMMARY | 2018-05-13 10:27 | XMS REPORT ---
Author Author Ronnie Tom [facility] Address [address] [place], [place] [address] Care Team Providers Care Customer Account Coordinator Name Role Phone Ronnie Tom PCP Ronnie [...] needle 07/12/2013 use once a day with [employer] Blood Glucose System miscellaneous strip 07/30/2013 Test [...] Decadron 1 mg [facility]#[id number] (Negro) Reviewed 10/23/2011 12:00 AM Depo-Medrol 80 mg [facility]#[id number] Reviewed 12/03/2011 12:00 AM MAMMOGRAM SCREENING Reviewed [...] Decadron Inj. 8mg [facility] #[address]-77 Reviewed 07/06/2009 12:00 AM Depo-Medrol 80 mg IM [facility]# [address]-35 Reviewed 09/15/2014 2:34 PM URINALYSIS AUTO W/O [...] BY REPEAT ANALYSIS DATE/TIME CALLED: 07-31-09 1645 [facility] READ BACK [...] Policy Number Policy Group Number Start Date [facility] Comm [id number] N/A [facility] Comm Plan of [id number] N/A [place] Medical Assistance Program [place] Medical Assistance Prog [id number] N/A [facility] [id number] N/A Early Detection Works Early Detection Works [id number] N/A [place] [facility] [employer] Financial Assistance [facility] Financial [place] [id number] N/A [facility] [place] [facility] [place] [facility] [id number] N/A History of Encounters Visit Date Visit Type Provider 11/24/2017 Office visit Ronnie Tom DO 10/22/2017 [facility] Collins Mcclelland MD 09/12/2017 [facility] Collins Mcclelland MD 08/20/2017 Office visit Kash Albarran DO 07/20/2017 [facility] Amari Lazo MD 07/19/2017 Hospital [place] Mcclelland MD 07/14/2017 Surgery Zara Victor MD 06/12/2017 Office visit Zara Victor MD 06/04/2017 [facility] Collins Mcclelland MD 05/09/2017 [facility] Lalito Corado MD 05/08/2017 [facility] Collins Mcclelland MD 02/24/2016 Office [...] Negro DO 04/08/2013 Office visit Mack Cortes GERICARE AIDE TEACHER 04/07/2013 [facility] DO 03/31/2013 [facility] DO 03/31/2013 Office visit Regi Foster GERICARE AIDE TEACHER 12/01/2012 Office visit Regi Foster GERICARE AIDE TEACHER 03/18/2012 Office visit Ronnie Negro DO 01/06/2012 Office visit Ronnie Tom DO 01/02/2012 Office visit Lorraine Lopez GERICARE AIDE TEACHER 12/03/2011 Office visit Ronnie Tom DO 10/23/2011 Office visit Regi Foster GERICARE AIDE TEACHER 05/28/2011 Office visit Ronnie Negro DO 05/16/2011 [...]
--- OUTSIDE RECORDS SUMMARY | 2018-05-13 10:28 | XMS REPORT ---
Author Author Ronnie Tom [facility] Address [address] [place], [place] [address] Care Team Providers Care Human Resources Partner Name Role Phone Ronnie Tom PCP Ronnie [...] needle 07/12/2013 use once a day with [employer] Blood Glucose System miscellaneous strip 07/30/2013 Test [...] miscellaneous syringe use with Lantus once daily Name Start Date Expiration Date SIG Comments [...] UTI Active 06/12/2017 Current smoker Active 06/12/2017 Vital Signs Date Time BP-Sys(mm[Hg] BP-Mariana(mm[Hg]) HR(bpm) [...] 10/23/2011 12:00 AM Decadron 1 mg [facility]#[id number] (Negro) Reviewed 10/23/2011 12:00 AM Depo-Medrol 80 mg [facility]#[id number] Reviewed 12/03/2011 12:00 AM MAMMOGRAM SCREENING Reviewed 12/03/2011 12:00 AM TISSUE EXAM FOR FUNGI Reviewed 01/02/2012 12:00 AM GLYCOSYLATED HEMOGLOBIN TEST Reviewed 06/12/2017 2:16 PM URINALYSIS AUTO W/O SCOPE Reviewed 11/24/2017 12:00 AM COMPREHEN METABOLIC PANEL Returned 11/24/2017 12:00 AM GLYCOSYLATED HEMOGLOBIN TEST Returned 12/01/2012 12:00 AM Culture-Wound Reviewed 12/01/2012 12:00 [...] 07/06/2009 12:00 AM Decadron Inj. 8mg [facility] #[address]-88 Reviewed 07/06/2009 12:00 AM Depo-Medrol 80 mg IM [facility]# [address]-45 Reviewed 09/15/2014 2:34 PM URINALYSIS AUTO W/O [...] VERIFIED BY REPEAT ANALYSIS DATE/TIME CALLED: 07-31-09 [phone] [facility] READ BACK BY: ALEISHA @ DR. BRISCOE'S [...] VE WBC Est Ur Ql Strip -VE History Of Immunizations Not available. History of [...] 06/12/2017 Bacterial UTI 06/12/2017 Current smoker 06/12/2017 Diabetes Mellitus, Type II Apr 10 2011 [...] 2017 9:30AM Hyperlipidemia Nov 24 2017 9:30AM Payers Insurance Name Company Name Plan Name Plan Number Policy Number Policy Group Number Start Date [facility] Plan of [id number] N/A [place] Medical Assistance Program [place] Medical Assistance Prog [id number] N/A [facility] [id number] N/A Early Detection Works Early Detection Works [id number] N/A [employer] Financial Assistance [employer] Financial [place] [id number] N/A [place] [facility] [place] [facility] [place] [facility] [id number] N/A [facility] [id number] N/A History of Encounters Visit Date Visit Type Provider 11/24/2017 Office visit Ronnie Tom DO 10/22/2017 Hospital Collins Mcclelland MD 09/12/2017 [facility] Collins Mcclelland MD 08/20/2017 Office visit Kash Albarran DO 07/20/2017 [facility] Amari Lazo MD 07/19/2017 Hospital Collins Mcclelland MD 07/14/2017 Surgery Zara Victor MD 06/12/2017 Office visit Zara Victor MD 06/04/2017 [facility] Collins Mcclelland MD 05/09/2017 [facility] Lalito Corado MD 05/08/2017 [facility] Collins Mcclelland MD 02/24/2016 Office visit Aleisha Childs DIGITAL MEDIA MANAGER 10/18/2015 Office visit Ronnie Negro DO [...] Negro DO 04/08/2013 Office visit Mack Cortes DIGITAL MEDIA MANAGER 04/07/2013 [facility] DO 03/31/2013 [facility] DO 03/31/2013 Office visit Regi Foster DIGITAL MEDIA MANAGER 12/01/2012 Office visit Regi Foster DIGITAL MEDIA MANAGER 03/18/2012 Office visit Ronnie Tom DO 01/06/2012 Office visit Ronnie Negro DO 01/02/2012 Office visit Lorraine Lopez DIGITAL MEDIA MANAGER 12/03/2011 Office visit Ronnie Tom DO 10/23/2011 Office visit Regi Foster DIGITAL MEDIA MANAGER 05/28/2011 Office visit Ronnie Tom DO 05/16/2011 Office visit Ronnie Negro DO 04/10/2011 Office visit Ronnie Negro DO 02/01/2011 Office visit Ronnie Negro DO 12/27/2010 Office visit Ronnie Tom DO 10/09/2010 Office visit Ronnie Tom DO 01/15/2010 Office visit Alma Rosa DE LA ROSA 09/07/2009 Office visit Ronnie Tom DO 08/07/2009 Office visit Ronnie Tom DO 07/18/2009 Office visit Ronnie Tom DO 07/06/2009 Office visit Ronnie Tom DO 04/06/2009 Office visit Ronnie Tom DO
--- OUTSIDE RECORDS SUMMARY | 2018-05-13 10:32 | XMS REPORT ---
Author Author Kash Albarran [facility] Address [address] [place], [place] [address] Care Team Providers Care Animal Herder Name Role Phone Kash Albarran PCP NegroManjit harpera PreferredProvider Allergies and Adverse Reactions Name Reaction [...] units by subcutaneous route once a day [employer] Blood Glucose System miscellaneous strip 07/30/2013 Test [...] MORNING AND 2 TABLETS IN THE EVENING hydroxyzine HCl 25 mg oral tablet take 1 tablet (25 mg) by oral route 4 times per day as needed for 30 days metformin 1,000 mg oral tablet take 1 tablet (1,000 mg) by oral route 2 times per day with morning and evening meals for 30 days glimepiride 4 mg oral tablet take 1 tablet (4 mg) by oral route once daily amlodipine 5 mg oral tablet take 1 [...] mg) by oral route every 12 hours Name Start Date Expiration Date SIG Comments [...] by oral route 2 times a day Bactrim DS 800-160 mg oral tablet 06/12/2017 08/20/2017 Take one tab PO after supper daily Problem List Description Status Onset Diabetes Mellitus, Type II Active Hyperlipidemia Active lumbar back pain Active Cocaine dependence Active Hematuria Active 06/12/2017 Bacterial UTI Active 06/12/2017 Current smoker Active 06/12/2017 Vital Signs Date Time BP-Sys(mm[Hg] BP-Mariana(mm[Hg]) HR(bpm) RR(rpm) Temp WT HT HC BMI BSA BMI Percentile O2 Sat(%) 08/20/2017 2:21:00 PM 120 mmHg 60 mmHg [...] Reviewed 10/23/2011 12:00 AM Decadron 1 mg [facility]#[id number] (Negro) Reviewed 10/23/2011 12:00 AM Depo-Medrol 80 mg [facility]#[id number] Reviewed 12/03/2011 12:00 AM MAMMOGRAM SCREENING Reviewed 12/03/2011 12:00 AM TISSUE EXAM FOR FUNGI Reviewed 01/02/2012 12:00 AM GLYCOSYLATED HEMOGLOBIN TEST Reviewed 06/12/2017 2:16 PM URINALYSIS AUTO W/O SCOPE Reviewed 12/01/2012 12:00 AM Culture-Wound Reviewed 12/01/2012 [...] Reviewed 07/06/2009 12:00 AM Decadron Inj. 8mg [facility] #[address]-95 Reviewed 07/06/2009 12:00 AM Depo-Medrol 80 mg IM [facility]# [address]-08 Reviewed 09/15/2014 2:34 PM URINALYSIS AUTO W/O SCOPE Reviewed 09/22/2014 12:00 AM COMPREHEN METABOLIC PANEL Reviewed 09/22/2014 12:00 AM GLYCOSYLATED HEMOGLOBIN TEST Reviewed 09/15/2014 12:00 AM MAMMOGRAM SCREENING Reviewed 09/15/2014 12:00 AM DRUG SCREEN CLASS LIST A Reviewed 09/26/2014 12:00 AM MAMMOGRAM BOTH BREASTS Reviewed Results Summary Date and Description Results 07/31/2009 3:28 PM GLUCOSE 655 RECHECKED VERIFIED BY REPEAT ANALYSIS DATE/TIME CALLED: 07-31-09 0538 [facility] READ BACK BY: ALEISHA @ DR. [...] 2013 3:52PM Fatigue b 2013 3:52PM Neuralgia Feb 2013 3:52PM Essential [...] and depressed mood Aug 20 2017 2:26PM Payers Insurance Name Company Name Plan Name Plan Number Policy Number Policy Group Number Start Date [place] Medical Assistance Program [place] Medical Assistance Prog [id number] N/A [facility] [id number] N/A Early Detection Works Early Detection Works [id number] N/A [employer] Financial Assistance [employer] Financial [place] [id number] N/A [facility] [place] Free [facility] [id number] N/A [facility] Plan of [facility] Comm [id number] N/A History of Encounters Visit Date Visit Type Provider 08/20/2017 Office visit Kash Albarran DO 07/20/2017 Hospital Amari Lazo MD 07/19/2017 Hospital Collins Mcclelland MD 07/14/2017 Surgery Zara Victor MD 06/12/2017 Office visit Zara Victor MD 06/04/2017 [facility] Collins Mcclelland MD 05/09/2017 [facility] Lalito Corado MD 05/08/2017 Hospital Collins Mcclelland MD 02/24/2016 Office visit [...] Tom DO 04/08/2013 Office visit Mack Cortes ARCHIVIST MILITARY HISTORY 04/07/2013 [facility] DO 03/31/2013 [facility] DO 03/31/2013 Office visit Regi Cristian ARCHIVIST MILITARY HISTORY 12/01/2012 Office visit Regi Cristian ARCHIVIST MILITARY HISTORY 03/18/2012 Office visit Ronnie Tom DO 01/06/2012 Office visit Ronnie Tom DO 01/02/2012 Office visit Lorraine Lopez ARCHIVIST MILITARY HISTORY 12/03/2011 Office visit Ronnie Tom DO 10/23/2011 Office visit Regi Foster ARCHIVIST MILITARY HISTORY 05/28/2011 Office visit Ronnie Tom DO 05/16/2011 [...]
--- OUTSIDE RECORDS SUMMARY | 2018-05-13 10:33 | XMS REPORT ---
Author Author Zara Victor [facility] Address [address] [place], [place] [address] Care Team Providers Care Sight Effects Specialist Name Role Phone Zara Victor PCP Unavailable Ronnie Tom PreferredProvider Allergies and Adverse Reactions [...] mg) by oral route every 12 hours Bactrim DS 800-160 mg oral tablet 06/12/2017 Take one tab PO after supper daily Name Start Date Expiration Date SIG [...] "not taking" Cymbalta 30 mg oral capsule,delayed release(/EC) 02/01/2011 04/10/2011 take 1 capsule (60 mg) [...] HC BMI BSA BMI Percentile O2 Sat(%) 06/12/2017 9:39:00 AM 127 lbs 63.5 in [...] Reviewed 10/23/2011 12:00 AM Decadron 1 mg [facility]#[id number] (Negro) Reviewed 10/23/2011 12:00 AM Depo-Medrol 80 mg [facility]#[id number]-Vzhkbayp Reviewed 12/03/2011 12:00 AM MAMMOGRAM SCREENING Reviewed [...] Reviewed 07/06/2009 12:00 AM Decadron Inj. 8mg [facility] #[address]-50 Reviewed 07/06/2009 12:00 AM Depo-Medrol 80 mg IM [facility]# [address]-34 Reviewed 09/15/2014 2:34 PM URINALYSIS AUTO W/O [...] VERIFIED BY REPEAT ANALYSIS DATE/TIME CALLED: 07-31-09 0925 [facility] READ BACK BY: ALEISHA @ DR. BRISCOE'S [...] 72 eGFR 59 eGFR AA* >60 06/12/2017 2:16 PM Clarity Ur clear Color [...] 9:39AM Current smoker Jun 12 2017 9:39AM Payers Insurance Name Company Name Plan Name Plan Number Policy Number Policy Group Number Start Date [facility] Assistance [facility] Prog [id number] N/A [facility]s [facility] [id number] N/A Early Detection Works Early Detection Works [id number] N/A [employer] Financial Assistance [employer] Financial [place] [id number] N/A [place] [facility] - [place] Community [place] Free Clinic [id number] N/A [facility] Comm [id number] N/A History of Encounters Visit Date Visit Type Provider 06/12/2017 Office visit Zara Victor MD 05/09/2017 [facility] Lalito Corado MD 05/08/2017 [facility] Collins Mcclelland MD 02/24/2016 Office visit Aleisha Childs DIRECTOR SPECIALTY 10/18/2015 Office visit Ronnie Tom DO 09/15/2014 [...] Tom DO 04/08/2013 Office visit Mack Cortes DIRECTOR SPECIALTY 04/07/2013 [facility] DO 03/31/2013 [facility] DO 03/31/2013 Office visit Regi Foster DIRECTOR SPECIALTY 12/01/2012 Office visit Regi Foster DIRECTOR SPECIALTY 03/18/2012 Office visit Ronnie Tom DO 01/06/2012 Office visit Ronnie Tom DO 01/02/2012 Office visit Lorraine Lopez DIRECTOR SPECIALTY 12/03/2011 Office visit Ronnie Tom DO 10/23/2011 Office visit Regi Foster DIRECTOR SPECIALTY 05/28/2011 Office visit Ronnie Tom DO 05/16/2011 [...]
--- OUTSIDE RECORDS SUMMARY | 2018-05-13 10:35 | XMS REPORT ---
Author Author Ronnie Tom [facility] Address [address] [place], [place] [address] Care Team Providers Care Back Tender Fourdrinier Name Role Phone Ronnie Tom PCP Ronnie [...] needle 07/12/2013 use once a day with [employer] Blood Glucose System miscellaneous strip 07/30/2013 Test [...] TAKE 1 CAPSULE BY MOUTH ONCE DAILY Name Start Date Expiration Date SIG Comments [...] Reviewed 10/23/2011 12:00 AM Decadron 1 mg [facility]#[id number] (Negro) Reviewed 10/23/2011 12:00 AM Depo-Medrol 80 mg [facility]#[id number]-Bwuwdtpc Reviewed 12/03/2011 12:00 AM MAMMOGRAM SCREENING Reviewed [...] Reviewed 07/06/2009 12:00 AM Decadron Inj. 8mg [facility] #[address]-41 Reviewed 07/06/2009 12:00 AM Depo-Medrol 80 mg IM [facility]# [address]-02 Reviewed 09/15/2014 2:34 PM URINALYSIS AUTO W/O [...] VERIFIED BY REPEAT ANALYSIS DATE/TIME CALLED: 07-31-09 [phone] [facility] READ BACK BY: ALEISHA @ DR. BRISCOE'S [...] Policy Number Policy Group Number Start Date [facility] Plan of [id number] N/A [place] [employer] Assistance [facility] Medical Assistance Prog [id number] N/A [facility] [id number] N/A Early Detection Works Early Detection Works [id number] N/A [employer] Financial Assistance [employer] Financial [place] [id number] N/A [facility] - [place] [facility] ONLY Free Clinic [id number] N/A [facility] Comm [id number] N/A History of Encounters Visit Date Visit Type Provider 11/24/2017 Office visit Ronnie Tom DO 10/22/2017 [facility] Collins Mcclelland MD 09/12/2017 [facility] Collins Mcclelland MD 08/20/2017 Office visit Kash Albarran DO 07/20/2017 [facility] Amari Lazo MD 07/19/2017 [facility] Collins Mcclelland MD 07/14/2017 Surgery Zara Victor MD 06/12/2017 Office visit Zara Victor MD 06/04/2017 [facility] Collins Mcclelland MD 05/09/2017 [facility] Lalito Corado MD [...] Tom DO 04/08/2013 Office visit Mack Cortes PIPE PRODUCTION WORKER 04/07/2013 [facility] DO 03/31/2013 [facility] DO 03/31/2013 Office visit Regi Cristian PIPE PRODUCTION WORKER 12/01/2012 Office visit Regi Cristian PIPE PRODUCTION WORKER 03/18/2012 Office visit Ronnie Tom DO 01/06/2012 Office visit Ronnie Tom DO 01/02/2012 Office visit Lorraine Jessica PIPE PRODUCTION WORKER 12/03/2011 Office visit Ronnie Tom DO 10/23/2011 Office visit Regi Cristian PIPE PRODUCTION WORKER 05/28/2011 Office visit Ronnie Tom DO 05/16/2011 Office visit Ronnie Tom DO 04/10/2011 Office visit Ronnie Tom DO 02/01/2011 Office visit Ronnie Tom DO 12/27/2010 Office visit Rnonie Tom DO 10/09/2010 Office visit Ronnie Tom DO 01/15/2010 Office visit Alma Rosa DE LA ROS[place] 09/07/2009 Office visit Ronnie Tom DO 08/07/2009 Office visit Ronnie Tom DO 07/18/2009 Office visit Ronine Tom DO 07/06/2009 Office visit Ronnie Tom DO 04/06/2009 Office visit Ronnie Tom DO
--- OUTSIDE RECORDS SUMMARY | 2018-05-13 10:37 | XMS REPORT ---
Author Author Ronnie Tom [facility] Address [address] [place], [place] [address] Care Team Providers Care Asphalt Paver Name Role Phone Ronnie Tom PCP Ronnie [...] needle 07/12/2013 use once a day with [employer] Blood Glucose System miscellaneous strip 07/30/2013 Test [...] Reviewed 10/23/2011 12:00 AM Decadron 1 mg [facility]#[id number] (Negro) Reviewed 10/23/2011 12:00 AM Depo-Medrol 80 mg [facility]#[id number] Reviewed 12/03/2011 12:00 AM MAMMOGRAM SCREENING Reviewed [...] Reviewed 07/06/2009 12:00 AM Decadron Inj. 8mg [facility] #[address]-29 Reviewed 07/06/2009 12:00 AM Depo-Medrol 80 mg IM [facility]# [address]-68 Reviewed 09/15/2014 2:34 PM URINALYSIS AUTO W/O [...] VERIFIED BY REPEAT ANALYSIS DATE/TIME CALLED: 07-31-09 [phone] [facility] READ BACK BY: ALEISHA @ DR. [...] Policy Number Policy Group Number Start Date [facility] Plan of [id number] N/A [place] Medical Assistance Program [place] Medical Assistance Prog [id number] N/A [facility] [id number] N/A Early Detection Works Early Detection Works [id number] N/A [employer] Financial Assistance [employer] Financial [place] [id number] N/A [place] [facility] [place] [facility] [place] [facility] Clinic [id number] N/A [facility] Plan of [facility] Comm [id number] N/A History of Encounters Visit Date Visit Type Provider 11/24/2017 Office visit Ronnie Tom DO 10/22/2017 Hospital Collins Mcclelland MD 09/12/2017 [facility] Collins Mcclelland MD 08/20/2017 Office visit Kash Albarran DO 07/20/2017 Hospital Amari Lazo MD 07/19/2017 [facility] Collins Mcclelland MD 07/14/2017 Surgery Zara Victor MD 06/12/2017 Office visit Zara Victor MD 06/04/2017 [facility] Collins Mcclelland MD 05/09/2017 [facility] Lalito Corado MD 05/08/2017 [facility] Collins Mcclelland MD 02/24/2016 Office visit Aleisha Childs ORDER FILLER 10/18/2015 Office visit Ronnie Negro DO 09/15/2014 [...] Negro DO 04/08/2013 Office visit Mack Cortes ORDER FILLER 04/07/2013 [facility] DO 03/31/2013 [facility] DO 03/31/2013 Office visit Regi Foster ORDER FILLER 12/01/2012 Office visit Regi Foster ORDER FILLER 03/18/2012 Office visit Ronnie Negro DO 01/06/2012 Office visit Ronnie Negro DO 01/02/2012 Office visit Lorraine Lopez ORDER FILLER 12/03/2011 Office visit Ronnie Negro DO 10/23/2011 Office visit Regi Foster ORDER FILLER 05/28/2011 Office visit Ronnie Negro DO 05/16/2011 [...]
--- OUTSIDE RECORDS SUMMARY | 2018-05-13 10:38 | XMS REPORT ---
Author Author Zara Victor [facility] Address [address] [place], [place] [id number] Care Team Providers Care Office Analyst Name Role Phone Zara Victor PCP Unavailable [...] Reviewed 10/23/2011 12:[address] [facility]#[id number] (Negro) Reviewed 10/23/2011 12:00 AM Depo-Medrol [address] [facility]#[id number] Reviewed 12/03/2011 12:00 AM MAMMOGRAM SCREENING Reviewed [...] Reviewed 07/06/2009 12:00 AM Dec[address] Inj. [address] [facility] #[address]-63 Reviewed 07/06/2009 12:00 AM Depo-Medrol [address] [facility]# [address]-81 Reviewed 09/15/2014 2:34 PM URINALYSIS AUTO W/O [...] VERIFIED BY REPEAT ANALYSIS DATE/TIME CALLED: 07-31-09 [phone] [facility] READ BACK BY: ALEISHA @ [facility] [...] 28 2013 9:47AM Diabetes Mellitus, Type II b 2013 3:52PM Hyperlipidemia Feb 2013 3:52PM Fatigue [...] 9:22AM Current smoker Jul 04 2017 9:22AM Payers Insurance Name Company Name Plan Name Plan Number Policy Number Policy Group Number Start Date [place] [id number] N/A [facility] [id number] N/A [employer] [id number] N/A [employer] Financial Assistance [employer] Financial [place] [id number] N/A [facility] [place] [facility] [id number] N/A [facility] Plan of [facility] Comm [id number] N/A History of Encounters Visit Date Visit Type Provider 06/12/2017 Office visit Zara Victor MD 05/09/2017 [facility] Lalito Corado MD 05/08/2017 [facility] Collins Mcclelland MD 02/24/2016 Office visit Aleisha Childs GRAPHIC ART DESIGNER 10/18/2015 Office visit Ronnie Tom DO 09/15/2014 [...] Tom DO 04/08/2013 Office visit Mack Cortes GRAPHIC ART DESIGNER 04/07/2013 [facility] DO 03/31/2013 [facility] DO 03/31/2013 Office visit Regi Foster GRAPHIC ART DESIGNER 12/01/2012 Office visit Regi Foster GRAPHIC ART DESIGNER 03/18/2012 Office visit Ronnie Tom DO 01/06/2012 Office visit Ronnie Tom DO 01/02/2012 Office visit Lorraine Lopez GRAPHIC ART DESIGNER 12/03/2011 Office visit Ronnie Tom DO 10/23/2011 Office visit Regi Cristian GRAPHIC ART DESIGNER 05/28/2011 Office visit Ronnie Tom DO 05/16/2011 [...]
--- OUTSIDE RECORDS SUMMARY | 2018-05-13 10:39 | XMS REPORT ---
Author Author Ronnie Tom [facility] Address [address] [place], [place] [id number] Care Team Providers Care Heel Builder Name Role Phone Ronine Tom PCP Ronnie Tom PreferredProvider Allergies and Adverse Reactions Name Reaction Notes Phenergan PENICILLINS codeine sulfate Plan of Treatment Not available. Medications Active Name Start Date Estimated Completion Date SIG Comments lisinopril 10 mg oral tablet 04/08/2013 take 1 tablet (10 mg) by oral route once daily Pen Needle 31 gauge x 1/4" miscellaneous needle 07/12/2013 use once a day with [employer] Blood Glucose System miscellaneous strip 07/30/2013 Test [...] Reviewed 10/23/2011 12:00 AM Decadron 1 mg [place]#[id number] (Negro) Reviewed 10/23/2011 12:00 AM Depo-Medrol 80 mg NDC#[id number] Reviewed 12/03/2011 12:00 AM MAMMOGRAM SCREENING Reviewed [...] AM Decadron Inj. 8mg [facility] #[address]-71 Reviewed 07/06/2009 12:00 AM Depo-Medrol 80 mg IM [facility]# [address]-28 Reviewed 09/15/2014 2:34 PM URINALYSIS AUTO W/O [...] VERIFIED BY REPEAT ANALYSIS DATE/TIME CALLED: 07-31-[phone] [facility] READ BACK BY: ALEISHA @ [facility] [...] Policy Number Policy Group Number Start Date [facility] Comm Plan of [id number] N/A [place] Prog [id number] N/A [facility] [id number] N/A [employer] [id number] N/A [employer] Financial Assistance [employer] Financial [place] [id number] N/A [facility] [place] [facility] [id number] N/A [facility] Comm [id number] N/A History of Encounters Visit Date Visit Type Provider 11/24/2017 Office visit Ronnie Tom DO 10/22/2017 [facility] Collins Mcclelland MD 09/12/2017 [facility] Collins Mcclelland MD 08/20/2017 Office visit Kash Albarran DO 07/20/2017 [facility] Amari Lazo MD 07/19/2017 [facility] Collins Mcclelland MD 07/14/2017 Surgery Zara Victor MD 06/12/2017 Office visit Zara Victor MD 06/04/2017 [facility] Collins Mcclelland MD 05/09/2017 [facility] Lalito Corado MD 05/08/2017 [facility] Collins Mcclelland MD 02/24/2016 Office visit [...] 04/08/2013 Office visit Mack Cortes APRN 04/07/2013 [facility] Kya Maggi DO 03/31/2013 [facility] Kya Maggi DO 03/31/2013 Office visit Regi Foster SOCIAL SERVICE COORDINATOR 12/01/2012 Office visit Regi Foster SOCIAL SERVICE COORDINATOR 03/18/2012 Office visit Ronnie Tom DO 01/06/2012 Office visit Ronnie Tom DO 01/02/2012 Office visit Lorraine Jessica SOCIAL SERVICE COORDINATOR 12/03/2011 Office visit Ronnie Tom DO 10/23/2011 Office visit Regi Foster SOCIAL SERVICE COORDINATOR 05/28/2011 Office visit Ronnie Tom DO 05/16/2011 [...]
--- OUTSIDE RECORDS SUMMARY | 2018-05-13 10:40 | XMS REPORT ---
Author Author CHRIS BECKWITH [facility] Address [address] [place] [address] Care Team Providers Care Information Systems Administrator Name Role Phone CHRIS BECKWITH Unavailable PROBLEMS Type Condition ICD9-CM Code WHI10-NE Code Onset Dates Condition Status SNOMED Code Problem Sleep apnea in adult G47.30 Active 92813044 Problem Moderately severe depression F32.2 Active 900202554 Problem Hypoglycemia associated with type 2 diabetes mellitus E11.649 Active 196166224 Problem PVD (peripheral vascular disease) I73.9 Active 825063760 Problem PAD (peripheral artery disease) I73.9 Active 397685587 Problem Hypoglycemia E16.2 Active 434599504 Problem Cerebrovascular accident (CVA), unspecified mechanism I63.9 Active 784696216 Problem Breast asymmetry N64.89 Active 777375785 Problem Abnormal mammogram of right breast R92.8 Active 537474563 Problem Diabetic neuropathy E11.40 Active 445638031 Problem Anxiety F41.9 Active 87698774 Problem Obstructive sleep apnea syndrome G47.33 Active 83903943 Problem Stage 2 chronic kidney disease N18.2 Active 644670226 Problem Essential hypertension I10 Active 64221298 Problem Type 2 diabetes mellitus with hyperglycemia E11.65 Active 496801060394085 Problem Cocaine abuse F14.10 Active 34210149 Problem Hyperlipidemia, unspecified E78.5 Active 28259945 ALLERGIES No Information ENCOUNTERS Encounter Location Date Diagnosis [facility], [place] [address] [facility] [id number] [place] [address] Dec, [facility] [place] [address] [id number] [address] Nov [facility] [address] [id number] [place] [address] Nov [facility] [place] [address] [id number] [place] [address] Nov PVD (peripheral vascular disease) I73.9 ; Type 2 diabetes mellitus with hyperglycemia E11.65 and PAD (peripheral artery disease) I73.9 [facility] [place] [address] [id number] [place] [address] Nov [facility] [place] [address] [id number] [place] [address] Nov [facility] [place] [address] [id number] [place] [address] Nov [facility] [place] [address] [id number] [place] [address] October [facility] [place] [address] [id number] [place] [address] October [facility] [place] [address] [id number] [place] [address] October Type 2 diabetes mellitus with hyperglycemia E11.65 and Surgical procedure on lower extremity within past 6 months Z98.890 [facility] [place] [address] [id number] [place] [address] October [facility] [place] [address] [id number] [place] [address] October [facility] [address] [facility] [id number] [place] [address] October, [facility] [place] [address] [id number] [place] [address] October Sleep apnea in adult G47.30 [facility] [place] [address] [id number] [place] [address] October Type 2 diabetes mellitus with hyperglycemia E11.65 [facility] [place] [address] [id number] [place] [address] Sep [facility] [place] [address] [id number] [place] [address] Sep Breast asymmetry N64.89 [facility] [place] [address] [id number] [place] [address] Sep [facility] [place] [address] [id number] [place] [address] Sep Type 2 diabetes mellitus with hyperglycemia E11.65 ; Cocaine abuse F14.10 and Open wound of right great toe, subsequent encounter S91.101D [facility] [place] [address] [id number] [place] [address] Sep [facility] [place] [address] [id number] [place] [address] Aug [facility] [place] [address] [id number] [place] [address] Aug [facility] [place] [address] [id number] [place] [address] Aug Type 2 diabetes mellitus with hyperglycemia E11.65 [facility] [place] [address] [id number] [place] [address] Aug [facility] [address] [facility] [id number] [place] [address] Aug, [facility] [place] [address] [id number] [place] [address] Jul [facility] [place] [address] [id number] [place] [address] Jul Diabetic neuropathy E11.40 ; Essential hypertension I10 and Type 2 diabetes mellitus with hyperglycemia E11.65 [facility] [place] [address] [id number] [place] [address] Jul [facility] [place] [address] [id number] [place] [address] Jul [facility] [place] [address] [id number] [place] [address] Jul [facility] [place] [address] [id number] [place] [address] Jul [facility] [place] [address] [id number] [place] [address] Jul [facility] [place] [address] [id number] [place] [address] Jul Type 2 diabetes mellitus with hyperglycemia E11.65 ; Open wound of right great toe, subsequent encounter S91.101D ; Essential hypertension I10 and Diabetic neuropathy E11.[address] [facility] [address] [id number] [place] [address] Jul, [facility] [place] [address] [id number] [place] [address] Jun [facility] [place] [address] [id number] [place] [address] Jun Type 2 diabetes mellitus with hyperglycemia E11.65 [facility] [place] [address] [id number] [place] [address] Jun [facility] [place] [address] [id number] [place] [address] Jun [facility] [place] [address] [id number] [place] [address] Jun Abnormal mammogram of right breast R92.8 and Breast asymmetry N64.89 [facility] [place] [address] [id number] [place] [address] Jun [facility] [place] [address] [id number] [place] [address] Jun [facility] [place] [address] [id number] [place] [address] May Hypoglycemia E16.2 [facility] [place] [address] [id number] [place] [address] May Abnormal neurological exam R29.90 [facility] [place] [address] [id number] [place] [address] May [facility] [place] [address] [id number] [place] [address] May Type 2 diabetes mellitus with hyperglycemia E11.65 [facility] [place] [address] [id number] [place] [address] May Breast cancer screening Z12.31 and Hematuria, unspecified type R31.9 [facility] [place] [address] [id number] [place] [address] May [facility] [address] [id number] [place] [address] May Type 2 diabetes mellitus with hyperglycemia E11.65 ; Essential hypertension I10 ; Moderately severe depression F32.2 and Confusion R41.0 [place] [address] [id number] [place] [address] May, [facility] [address] [id number] [place] [address] May Cerebrovascular accident (CVA), unspecified mechanism I63.9 ; Essential hypertension I10 ; Hyperlipidemia, unspecified E78.5 and Type 2 diabetes mellitus with hyperglycemia E11.65 [place] [address] [address] May, [place] [address] [id number] [address] May, [facility] [address] [id number] [place] [address] May [facility] [address] [id number] [place] [address] May Diabetic neuropathy E11.40 and Diabetes E11.9 [facility] [place] [address] [id number] [place] [address] Apr [facility] [address] [id number] [place] [address] Apr Subacute maxillary sinusitis J01.00 ; Hypoglycemia associated with type 2 diabetes mellitus E11.649 and Intractable episodic headache, unspecified headache type R51 [facility] [place] [address] [id number] [place] [address] Apr Diabetic neuropathy E11.40 and Anxiety F41.9 [facility] [place] [address] [id number] [place] [address] Apr [facility] [place] [address] [id number] [place] [address] Apr Type 2 diabetes mellitus with hyperglycemia E11.65 ; Subacute maxillary sinusitis J01.00 ; Diabetic neuropathy E11.40 and Sleep apnea in adult G47.30 [place] [address] [id number] [place] [address] Apr, [facility] [place] [address] [id number] [place] [address] Apr [facility] [place] [address] [id number] [place] [address] Apr [facility] [place] [address] [id number] [place] [address] Apr Subacute maxillary sinusitis J01.00 [place] [address], [place] [address] Apr, Right foot drop M21.371 [facility] [place] [address] [id number] [place] [address] Apr [facility] [place] [address] [id number] [place] [address] Mar [facility] [place] [address] [id number] [place] [address] Mar Essential hypertension I10 ; Type 2 diabetes mellitus with hyperglycemia E11.65 ; Encounter for immunization Z23 ; Cocaine abuse F14.10 and Hyperlipidemia, unspecified E78.5 [facility] [place] [address] [id number] [place] [address] Mar [place] [address] [id number] [address] Mar, [facility] [place] [address] [id number] [place] [address] Feb [facility] [place] [address] [id number] [place] [address] Feb Type 2 diabetes mellitus with hyperglycemia E11.65 and Acute right ankle pain M25.571 [facility] [place] [address] [id number] [place] [address] Feb Weight loss R63.4 and Anxiety F41.9 [place] [address] [id number] [address] Jan, [facility], [place] [address], [place] [address] Jan, [facility], [place] [address], [place] [address] Jan, [facility], [place] [address], [place] [address] Jan, Diabetes E11.9 [facility] [address] [id number] [place] [address] Jan Sprain of right ankle, unspecified ligament, initial encounter S93.401A [facility] [place] [address] [id number] [place] [address] Jan Essential hypertension I10 ; Anxiety F41.9 and Type 2 diabetes mellitus with hyperglycemia E11.65 [facility], [place] [address], [place] [address] Jan, Diabetes E11.9 [facility], [place] [address], [place] [address] Jan, [facility], [place] [address] [place] [address] Jan, [facility] [place] [address] [id number] [place] [address] Jan [facility], [place] [address], [place] [address] Jan, [facility], [place] [address], [place] [address] Jan, [facility], [place] [address], [place] [address] Jan, [facility], [place] [address]65[address], [place] [address] Jan, [facility], [place] [address], [place] [address] Jan, Unintentional weight loss R63.4 ; Stage 2 chronic kidney disease N18.2 ; Exposure to hepatitis C Z20.5 ; Diabetic neuropathy E11.40 ; Obstructive sleep apnea syndrome G47.33 ; Essential hypertension I10 and Type 2 diabetes mellitus with hyperglycemia E11.65 [facility], [place] [address], [place] [address] Jan, [facility], [place] [id number] [place] [address] Jan, Type 2 diabetes mellitus with hyperglycemia E11.65 ; Diabetic neuropathy E11.40 and Essential hypertension I10 [facility], [place] [address] [place] [address] Dec, Diabetes E11.9 [facility], [place] [address] [place] [address] Dec, [facility], [place] [id number] [place] [address] Dec, [facility], [place] [address] [place] [address] Dec, [facility], [place] [id number] [place] [address] Dec, Dental examination Z01.20 [facility], [place] [address] [place] [address] Dec, [facility], [place] [address] [place] [address] Dec, Diabetes E11.9 [facility], [place] [address], [place] [address] Dec, Stage 2 chronic kidney disease N18.2 ; Exposure to hepatitis C Z20.5 ; Obstructive sleep apnea syndrome G47.33 and Type 2 diabetes mellitus with hyperglycemia E11.65 [facility], [place] [address], [place] [address] Dec, [facility] [place] [address] [id number] [place] [address] Dec Diabetes E11.9 and Essential hypertension I10 [facility], [place] [address] [facility] [id number] [place] [address] Nov, Diabetes E11.9 [facility], [place] [address] [id number] [place] [address] Nov, Right foot pain M79.671 [facility] [address] [id number] [address] Nov, Right foot pain M79.671 [facility] [place] [address] [id number] [place] [address] Nov Diabetes E11.9 [facility] [place] [address] [id number] [place] [address] Nov Diabetes E11.9 [facility] [address] [id number] [address] Nov, Dental examination Z01.20 [facility] [place] [address] [id number] [place] [address] Nov Diabetes E11.9 ; Cocaine abuse F14.10 and Shingles (herpes zoster) polyneuropathy B02.23 [facility] [place] [address] [id number] [place] [address] Nov [facility], [place] [address] [facility] [id number] [place] [address] October, [facility] [place] [address] [id number] [place] [address] October [facility] [place] [address] [id number] [place] [address] October Unintentional weight loss R63.4 [facility] [place] [address] [id number] [place] [address] October Abscess L02.91 [facility] [place] [address] [id number] [place] [address] October Diabetes E11.9 ; Unintentional weight loss R63.4 ; History of hematuria Z87.448 and Cocaine abuse F14.10 [facility] [place] [address] [id number] [place] [address] October Diabetes E11.9 [facility] [place] [address] [id number] [place] [address] October Essential hypertension I10 and Abscess L02.91 [facility] [place] [address] [id number] [place] [address] Jun [facility] [place] [address] [id number] [place] [address] May Breast cancer screening Z12.39 ; Diabetes E11.9 and Anxiety F41.9 [facility] [place] [address] [facility] [id number] [place] [address] May, Diabetes E11.9 [facility] [place] [address] [id number] [place] [address] May Diabetes E11.9 and Anemia D64.9 [facility] [place] [address] [id number] [place] [address] May Anxiety F41.9 [facility] [place] [address] [id number] [place] [address] 08 May [facility] [place] [address] [id number] [place] [address] May Dysuria R30.0 [facility] [place] [address] [id number] [place] [address] May [facility] [place] [address] [id number] [place] [address] 05 May Dysuria R30.0 and Vaginal itching L29.8 [facility], [place] [address] [facility] [id number] [place] [address] Apr, [facility] [place] [address] [id number] [place] [address] 14 Apr Diabetes E11.9 ; Dysuria R30.0 ; Diabetic neuropathy E11.40 ; Anemia D64.9 and Vaginal discharge N89.8 [facility], [place] [address] [id number], [place] [address] Jun, [address]00565100[place] [address] Jun, Anemia D64.9 ; Anxiety F41.9 ; Diabetes E11.9 and Diabetic neuropathy E11.40 [address]00565100[place] [address] May, [facility], [place] [address] 8218365100[place], [place] [address] Apr, [place] [id number] [place] [id number] Apr, Anemia D64.9 ; Anxiety F41.9 ; Diabetes E11.9 and Diabetic neuropathy E11.40 [place] [id number] [place] [id number] Mar, Acute costochondritis M94.0 [place] [id number] [place] [id number] Mar, Bilateral low back pain without sciatica M54.5 and Bereavement Z63.4 [place] [id number] [place] [id number] Mar, Obstructive chronic bronchitis with acute exacerbation J44.1 ; Herpes zoster without complication B02.9 and Blue N91.2 [place] [id number] [place] [id number] Mar, [place] [id number] [place] [id number] Mar, [place] [id number] [place] [id number] Feb, History of recent traumatic injury of head V15.52 ; Diabetes type 2, uncontrolled 250.02 and Visual disturbance 368.9 [place] [id number] [place] [id number] Feb, History of recent traumatic injury of head V15.52 ; Visual disturbance 368.9 and Diabetes type 2, uncontrolled 250.02 IMMUNIZATIONS No Known Immunizations SOCIAL HISTORY Never Assessed REASON FOR VISIT 1 yr f/u DM Ed PLAN OF CARE VITAL SIGNS MEDICATIONS Unknown Medications RESULTS No Results PROCEDURES No Known procedures INSTRUCTIONS MEDICATIONS ADMINISTERED No Known Medications MEDICAL (GENERAL) HISTORY Type Description Date Medical History Diabetes Medical History hypertension Medical History hyperlipidemia Medical History neuropathy Medical History stroke Medical History detached retina Medical History Renal Failure Surgical History Hysterectomy 1998 Surgical History cyst on left breast removed X 2 Surgical History tubal ligation Surgical History Back surgery Surgical History Lt eye surgey 07/2017 Surgical History peripheral vascular stent placement 10/2017 Surgical History stent placement/clot 11/2017 Hospitalization History high blood glucose and kidney infection 2004 Hospitalization History in rehab at [facility] 2016 Hospitalization History Stroke 05/2017 Hospitalization History surgeries Hospitalization History Elevated B/S 07/2017 Hospitalization History [facility] - blood clot LRE 10/2017 Hospitalization History [facility] - R ankle clot 11/2017
--- OUTSIDE RECORDS SUMMARY | 2018-05-13 10:40 | XMS REPORT ---
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 Phone NATALY HUDSON Unavailable PROBLEMS Type Condition ICD9-CM Code APQ54-WC Code Onset Dates Condition Status SNOMED Code Problem Sleep apnea in adult G47.30 Active 20150141 Problem Moderately severe depression F32.2 Active 469723886 Problem Hypoglycemia associated with type 2 diabetes mellitus E11.649 Active 266024556 Problem PVD (peripheral vascular disease) I73.9 Active 136911829 Problem PAD (peripheral artery disease) I73.9 Active 512292621 Problem Hypoglycemia E16.2 Active 011568873 Problem Cerebrovascular accident (CVA), unspecified mechanism I63.9 Active 505125350 Problem Breast asymmetry N64.89 Active 933683939 Problem Abnormal mammogram of right breast R92.8 Active 514711669 Problem Diabetic neuropathy E11.40 Active 888555847 Problem Anxiety F41.9 Active 33857193 Problem Obstructive sleep apnea syndrome G47.33 Active 90258537 Problem Stage 2 chronic kidney disease N18.2 Active 560301088 Problem Essential hypertension I10 Active 59004123 Problem Type 2 diabetes mellitus with hyperglycemia E11.65 Active 014011196633642 Problem Cocaine abuse F14.10 Active 14862298 Problem Hyperlipidemia, unspecified E78.5 Active 28735029 ALLERGIES No Information ENCOUNTERS Encounter Location Date Diagnosis [facility] [address] [id number] [place] [address] Apr, Type 2 diabetes mellitus with hyperglycemia E11.65 [facility] [address] [facility] [id number] [place] [address] Dec, [facility] [address] [id number] [place] [address] Nov [facility] [address] [id number] [place] [address] Nov [facility] [place] [address] [id number] [place] [address] Nov PVD (peripheral vascular disease) I73.9 ; Type 2 diabetes mellitus with hyperglycemia E11.65 and PAD (peripheral artery disease) I73.9 [facility] [place] [address] [id number] [place] [address] Nov [facility] [place] [address] [id number] [place] [address] Nov [facility] [place] [address] [id number] [place] [address] Nov [facility] [place] [address] [id number] [place] [address] October [facility] [place] [address] [id number] [place] [address] October [facility] [place] [address] [id number] [place] [address] October Type 2 diabetes mellitus with hyperglycemia E11.65 and Surgical procedure on lower extremity within past 6 months Z98.890 [facility] [place] [address] [id number] [place] [address] October [facility] [place] [address] [id number] [place] [address] October [facility] [address] [facility] [id number] [place] [address] October, [facility] [place] [address] [id number] [place] [address] October Sleep apnea in adult G47.30 [facility] [place] [address] [id number] [place] [address] October Type 2 diabetes mellitus with hyperglycemia E11.65 [facility] [place] [address] [id number] [place] [address] Sep [facility] [place] [address] [id number] [place] [address] Sep Breast asymmetry N64.89 [facility] [place] [address] [id number] [place] [address] Sep [facility] [place] [address] [id number] [place] [address] Sep Type 2 diabetes mellitus with hyperglycemia E11.65 ; Cocaine abuse F14.10 and Open wound of right great toe, subsequent encounter S91.101D [facility] [place] [address] [id number] [place] [address] Sep [facility] [place] [address] [id number] [place] [address] Aug [facility] [place] [address] [id number] [place] [address] Aug [facility] [place] [address] [id number] [place] [address] Aug Type 2 diabetes mellitus with hyperglycemia E11.65 [facility] [place] [address] [id number] [place] [address] Aug [facility] [address] [facility] [id number] [place] [address] Aug, [facility] [place] [address] [id number] [place] [address] Jul [facility] [place] [address] [id number] [place] [address] Jul Diabetic neuropathy E11.40 ; Essential hypertension I10 and Type 2 diabetes mellitus with hyperglycemia E11.65 [facility] [place] [address] [id number] [place] [address] Jul [facility] [place] [address] [id number] [place] [address] Jul [facility] [place] [address] [id number] [place] [address] Jul [facility] [place] [address] [id number] [place] [address] Jul [facility] [place] [address] [id number] [place] [address] Jul [facility] [place] [address] [id number] [place] [address] Jul Type 2 diabetes mellitus with hyperglycemia E11.65 ; Open wound of right great toe, subsequent encounter S91.101D ; Essential hypertension I10 and Diabetic neuropathy E11.40 [facility] [id number] [place] [address] Jul, [facility] [place] [address] [id number] [place] [address] Jun [facility] [place] [address] [id number] [place] [address] Jun Type 2 diabetes mellitus with hyperglycemia E11.65 [facility] [place] [address] [id number] [place] [address] Jun [facility] [place] [address] [id number] [place] [address] Jun [facility] [place] [address] [id number] [place] [address] Jun Abnormal mammogram of right breast R92.8 and Breast asymmetry N64.89 [facility] [place] [address] [id number] [place] [address] Jun [facility] [place] [address] [id number] [place] [address] Jun [facility] [place] [address] [id number] [place] [address] May Hypoglycemia E16.2 [facility] [place] [address] [id number] [place] [address] May Abnormal neurological exam R29.90 [facility] [place] [address] [id number] [place] [address] May [facility] [place] [address] [id number] [place] [address] May Type 2 diabetes mellitus with hyperglycemia E11.65 [facility] [place] [address] [id number] [place] [address] May Breast cancer screening Z12.31 and Hematuria, unspecified type R31.9 [facility] [place] [address] [id number] [place] [address] May [facility] [place] [address] [id number] [place] [address] May Type 2 diabetes mellitus with hyperglycemia E11.65 ; Essential hypertension I10 ; Moderately severe depression F32.2 and Confusion R41.0 [place] [address], [place] [address] May, [facility] [place] [address] [id number] [place] [address] May Cerebrovascular accident (CVA), unspecified mechanism I63.9 ; Essential hypertension I10 ; Hyperlipidemia, unspecified E78.5 and Type 2 diabetes mellitus with hyperglycemia E11.65 [place] [address], [place] [address] May, [place] [address], [place] [address] May, [facility] [address] [id number] [place] [address] May [facility] [place] [address] [id number] [place] [address] May Diabetic neuropathy E11.40 and Diabetes E11.9 [facility] [place] [address] [id number] [place] [address] Apr [facility] [place] [address] [id number] [place] [address] Apr Subacute maxillary sinusitis J01.00 ; Hypoglycemia associated with type 2 diabetes mellitus E11.649 and Intractable episodic headache, unspecified headache type R51 [facility] [place] [address] [id number] [place] [address] Apr Diabetic neuropathy E11.40 and Anxiety F41.9 [facility] [place] [address] [id number] [place] [address] Apr [facility] [place] [address] [id number] [place] [address] Apr Type 2 diabetes mellitus with hyperglycemia E11.65 ; Subacute maxillary sinusitis J01.00 ; Diabetic neuropathy E11.40 and Sleep apnea in adult G47.30 [place] [address] [place] [id number] [place] [address] Apr, [facility] [place] [address] [id number] [place] [address] Apr [facility] [place] [address] [id number] [place] [address] Apr [facility] [place] [address] [id number] [place] [address] Apr Subacute maxillary sinusitis J01.00 [place] [address] [place] [id number], [place] [address] Apr, Right foot drop M21.371 [facility] [place] [address] [id number] [place] [address] Apr [facility] [place] [address] [id number] [place] [address] Mar [facility] [place] [address] [id number] [place] [address] Mar Essential hypertension I10 ; Type 2 diabetes mellitus with hyperglycemia E11.65 ; Encounter for immunization Z23 ; Cocaine abuse F14.10 and Hyperlipidemia, unspecified E78.5 [facility] [place] [address] [id number] [place] [address] Mar [place] [address] [facility] [id number] [place] [address] Mar, [facility] [place] [address] [id number] [place] [address] Feb [facility] [place] [address] [id number] [place] [address] Feb Type 2 diabetes mellitus with hyperglycemia E11.65 and Acute right ankle pain M25.571 [facility] [place] [address] [id number] [place] [address] Feb Weight loss R63.4 and Anxiety F41.9 [facility] [address] [place] [address] Jan, [facility] [address] [place] [id number] [place] [address] Jan, [facility] [id number] [place] [address] Jan, [facility] [address] [place] [address] Jan, Diabetes E11.9 [facility] [address] [id number] [place] [address] Jan Sprain of right ankle, unspecified ligament, initial encounter S93.401A [facility] [address] [id number] [place] [address] Jan Essential hypertension I10 ; Anxiety F41.9 and Type 2 diabetes mellitus with hyperglycemia E11.65 [facility] [address] [place] [address] Jan, Diabetes E11.9 [facility] [address] [place] [address] Jan, [facility] [address], [place] [address] Jan, [facility] [address] [id number] [place] [address] Jan [facility] [address], [place] [address] Jan, [facility] [id number] [place] [address] Jan, [facility] [address], [place] [address] Jan, [facility] [address] [place] [address] Jan, [facility] [address], [place] [address] Jan, Unintentional weight loss R63.4 ; Stage 2 chronic kidney disease N18.2 ; Exposure to hepatitis C Z20.5 ; Diabetic neuropathy E11.40 ; Obstructive sleep apnea syndrome G47.33 ; Essential hypertension I10 and Type 2 diabetes mellitus with hyperglycemia E11.65 [facility] [address] [address] 6104465[place], [place] [address] Jan, [facility] [address] [place] [address] 6104465100[place], [place] [address] Jan, Type 2 diabetes mellitus with hyperglycemia E11.65 ; Diabetic neuropathy E11.40 and Essential hypertension I10 [facility] [address] [place] [address] Dec, Diabetes E11.9 [facility] [address], [place] [address] Dec, [facility] [address], [place] [address] Dec, [facility] [address] [address] 6104465100[place], [place] [address] Dec, [facility] [address], [place] [address] Dec, Dental examination Z01.20 [facility] [address], [place] [address] Dec, [facility] [address], [place] [address] Dec, Diabetes E11.9 [facility] [address], [place] [address] Dec, Stage 2 chronic kidney disease N18.2 ; Exposure to hepatitis C Z20.5 ; Obstructive sleep apnea syndrome G47.33 and Type 2 diabetes mellitus with hyperglycemia E11.65 [facility] [address] [place] [address] [id number] [place] [address] Dec, [facility] [place] [address] [id number] [place] [address] Dec Diabetes E11.9 and Essential hypertension I10 [facility] [address] [place] [id number] [address] Nov, Diabetes E11.9 [facility] [address] [place] [id number], [place] [address] Nov, Right foot pain M79.671 [facility] [address] [place] [address] [place] [address] Nov, Right foot pain M79.671 [facility] [place] [address] [id number] [place] [address] Nov Diabetes E11.9 [facility] [place] [address] [id number] [place] [address] Nov Diabetes E11.9 [facility] [address] [place] [address] [id number] [address] Nov, Dental examination Z01.20 [facility] [place] [address] [id number] [place] [address] Nov Diabetes E11.9 ; Cocaine abuse F14.10 and Shingles (herpes zoster) polyneuropathy B02.23 [facility] [place] [address] [id number] [place] [address] Nov [facility] [address] [facility] [id number] [place] [address] October, [facility] [place] [address] [id number] [place] [address] October [facility] [place] [address] [id number] [place] [address] October Unintentional weight loss R63.4 [facility] [place] [address] [id number] [place] [address] October Abscess L02.91 [facility] [place] [address] [id number] [place] [address] October Diabetes E11.9 ; Unintentional weight loss R63.4 ; History of hematuria Z87.448 and Cocaine abuse F14.10 [facility] [place] [address] [id number] [place] [address] October Diabetes E11.9 [facility] [place] [address] [id number] [place] [address] October Essential hypertension I10 and Abscess L02.91 [facility] [place] [address] [id number] [place] [address] Jun [facility] [place] [address] [id number] [place] [address] May Breast cancer screening Z12.39 ; Diabetes E11.9 and Anxiety F41.9 [facility] [place] [address] [facility] [id number] [place] [id number] 16 May, 2016 Diabetes E11.9 [facility] [place] [address] [id number] [place] [address] 15 May Diabetes E11.9 and Anemia D64.9 [facility] [place] [address] [id number] [place] [address] 14 May Anxiety F41.9 [facility] [place] [address] [id number] [place] [address] 08 May [facility] [place] [address] [id number] [place] [address] May Dysuria R30.0 [facility] [place] [address] [id number] [place] [address] 06 May [facility] [place] [address] [id number] [place] [address] 05 May Dysuria R30.0 and Vaginal itching L29.8 [facility] [address] [facility] [id number] [place] [address] 18 Apr, 2016 [facility] [place] [address] [id number] [place] [address] 14 Apr Diabetes E11.9 ; Dysuria R30.0 ; Diabetic neuropathy E11.40 ; Anemia D64.9 and Vaginal discharge N89.8 [place] [address] [place] [place] [address] Jun, [place] [id number] [place] [id number] Jun, Anemia D64.9 ; Anxiety F41.9 ; Diabetes E11.9 and Diabetic neuropathy E11.[address] [id number] May, [facility] [address] [address] Apr, [address] [id number] Apr, Anemia D64.9 ; Anxiety F41.9 ; Diabetes E11.9 and Diabetic neuropathy E11.40 [place] [id number] [place] [id number] Mar, Acute costochondritis M94.[address] [id number] Mar, Bilateral low back pain without sciatica M54.5 and Bereavement Z63.4 [place] [id number] [place] [id number] Mar, Obstructive chronic bronchitis with acute exacerbation J44.1 ; Herpes zoster without complication B02.9 and [place] N91.2 [place] [id number] [place] [id number] Mar, [address] [id number] Mar, [place] [id number] [place] [id number] 24 Feb, 2015 History of recent traumatic injury of head V15.52 ; Diabetes type 2, uncontrolled 250.02 and Visual disturbance 368.9 [facility] [place] [address] [facility] [id number] [place] [id number] 17 Feb, 2015 History of recent traumatic injury of head V15.52 ; Visual disturbance 368.9 and Diabetes type 2, uncontrolled 250.02 IMMUNIZATIONS No Known Immunizations SOCIAL HISTORY Never Assessed REASON FOR VISIT FREE A1C - MAN--tayler churchill PLAN OF CARE VITAL SIGNS MEDICATIONS Unknown Medications RESULTS Name Result Date Reference Range A1C (IN HOUSE) A1C IN HOUSE 7.0 4.3 - 5.6 % Previous A1c 11.1 Lot [id number] Exp date 01/2020 PROCEDURES Procedure Date Ordered Result Body Site GLYCATED HEMOGLOBIN TEST Apr 22, 2018 Billing Notes on claim Apr 22, 2018 INSTRUCTIONS MEDICATIONS ADMINISTERED No Known Medications MEDICAL [...] infection 2004 Hospitalization History in [place]hab at [place] 2016 Hospitalization History Stroke 05/2017 Hospitalization History surgeries Hospitalization History Elevated B/S 07/2017 Hospitalization History [facility] - blood clot LRE 10/2017 Hospitalization History [facility] - R ankle clot 11/2017
--- OUTSIDE RECORDS SUMMARY | 2018-05-13 10:41 | XMS REPORT ---
Author Author CHRIS BECKWITH [facility] Address [address] [place] [address] Care Team Providers Care Dip Stand Loader Name Role Phone CHRIS BECKWITH Unavailable PROBLEMS Type Condition ICD9-CM Code KAS65-HW Code Onset Dates Condition Status SNOMED Code Problem Sleep apnea in adult G47.30 Active 59776428 Problem Moderately severe depression F32.2 Active 647030295 Problem Hypoglycemia associated with type 2 diabetes mellitus E11.649 Active 526157982 Problem PVD (peripheral vascular disease) I73.9 Active 650955779 Problem PAD (peripheral artery disease) I73.9 Active 082202644 Problem Hypoglycemia E16.2 Active 794679572 Problem Cerebrovascular accident (CVA), unspecified mechanism I63.9 Active 818280349 Problem Breast asymmetry N64.89 Active 407282560 Problem Abnormal mammogram of right breast R92.8 Active 069078230 Problem Diabetic neuropathy E11.40 Active 302167121 Problem Anxiety F41.9 Active 58090371 Problem Obstructive sleep apnea syndrome G47.33 Active 79673106 Problem Stage 2 chronic kidney disease N18.2 Active 407267408 Problem Essential hypertension I10 Active 99852314 Problem Type 2 diabetes mellitus with hyperglycemia E11.65 Active 172242924536558 Problem Cocaine abuse F14.10 Active 86708703 Problem Hyperlipidemia, unspecified E78.5 Active 98988800 ALLERGIES No Information ENCOUNTERS Encounter Location Date Diagnosis [facility] [address] [facility] [id number] [place] [address] Dec, [facility] [place] [address] [id number] [place] [address] Nov [facility] [address] [id number] [place] [address] Nov [facility] [place] [address] [id number] [place] [address] Nov PVD (peripheral vascular disease) I73.9 ; Type 2 diabetes mellitus with hyperglycemia E11.65 and PAD (peripheral artery disease) I73.9 [facility] [place] [address] [id number] [place] [address] Nov [facility] [place] [address] [id number] [place] [address] Nov [facility] [place] [address] [id number] [place] [address] Nov [facility] [place] [address] [id number] [place] [address] October [facility] [place] [address] [id number] [place] [address] October [facility] [place] [address] [id number] [place] [address] October Type 2 diabetes mellitus with hyperglycemia E11.65 and Surgical procedure on lower extremity within past 6 months Z98.890 [facility] [place] [address] [id number] [place] [address] October [facility] [place] [address] [id number] [place] [address] [address] [facility] [address] [facility] [id number] [place] [address] October, [facility] [place] [address] [id number] [place] [address] October Sleep apnea in adult G47.30 [facility] [place] [address] [id number] [place] [address] October Type 2 diabetes mellitus with hyperglycemia E11.65 [facility] [place] [address] [id number] [place] [address] Sep [facility] [place] [address] [id number] [place] [address] Sep Breast asymmetry N64.89 [facility] [place] [address] [id number] [place] [address] Sep [facility] [place] [address] [id number] [place] [address] Sep Type 2 diabetes mellitus with hyperglycemia E11.65 ; Cocaine abuse F14.10 and Open wound of right great toe, subsequent encounter S91.101D [facility] [place] [address] [id number] [place] [address] Sep [facility] [place] [address] [id number] [place] [address] Aug [facility] [place] [address] [id number] [place] [address] Aug [facility] [place] [address] [id number] [place] [address] Aug Type 2 diabetes mellitus with hyperglycemia E11.65 [facility] [place] [address] [id number] [place] [address] [facility] [address] [facility] [id number] [place] [address] Aug, [facility] [place] [address] [id number] [place] [address] Jul [facility] [place] [address] [id number] [place] [address] Jul Diabetic neuropathy E11.40 ; Essential hypertension I10 and Type 2 diabetes mellitus with hyperglycemia E11.65 [facility] [place] [address] [id number] [place] [address] Jul [facility] [place] [address] [id number] [place] [address] Jul [facility] [place] [address] [id number] [place] [address] Jul [facility] [place] [address] [id number] [place] [address] Jul [facility] [place] [address] [id number] [place] [address] Jul [facility] [place] [address] [id number] [place] [address] Jul Type 2 diabetes mellitus with hyperglycemia E11.65 ; Open wound of right great toe, subsequent encounter S91.101D ; Essential hypertension I10 and Diabetic neuropathy E11.[address] [facility] [address] [id number] [place] [address] Jul, [facility] [place] [address] [id number] [place] [address] Jun [facility] [place] [address] [id number] [place] [address] Jun Type 2 diabetes mellitus with hyperglycemia E11.65 [facility] [place] [address] [id number] [place] [address] Jun [facility] [place] [address] [id number] [place] [address] Jun [facility] [place] [address] [id number] [place] [address] Jun Abnormal mammogram of right breast R92.8 and Breast asymmetry N64.89 [facility] [place] [address] [id number] [place] [address] Jun [facility] [place] [address] [id number] [place] [address] Jun [facility] [place] [address] [id number] [place] [address] May Hypoglycemia E16.2 [facility] [place] [address] [id number] [place] [address] May Abnormal neurological exam R29.90 [facility] [place] [address] [id number] [place] [address] May [facility] [place] [address] [id number] [place] [address] May Type 2 diabetes mellitus with hyperglycemia E11.65 [facility] [place] [address] [id number] [place] [address] May Breast cancer screening Z12.31 and Hematuria, unspecified type R31.9 [facility] [place] [address] [id number] [place] [address] May [facility] [address] [id number] [place] [address] May Type 2 diabetes mellitus with hyperglycemia E11.65 ; Essential hypertension I10 ; Moderately severe depression F32.2 and Confusion R41.0 [place] [address] [id number] [place] [address] May, [facility]ITALCaseStack[facility] [address] [id number] [place] [address] May Cerebrovascular accident (CVA), unspecified mechanism I63.9 ; Essential hypertension I10 ; Hyperlipidemia, unspecified E78.5 and Type 2 diabetes mellitus with hyperglycemia E11.65 [place] [address] [address] May, [place] [address] [id number] [address] May, [facility]ITAL[facility]Stack[facility] [address] [id number] [place] [address] May [facility]ITAL[facility]Stack[facility] [address] [id number] [place] [address] May Diabetic neuropathy E11.40 and Diabetes E11.9 [facility] [place] [address] [id number] [place] [address] Apr [facility] [address] [id number] [place] [address] Apr Subacute maxillary sinusitis J01.00 ; Hypoglycemia associated with type 2 diabetes mellitus E11.649 and Intractable episodic headache, unspecified headache type R51 [facility]Co[facility] [place] [address] [id number] [place] [address] Apr Diabetic neuropathy E11.40 and Anxiety F41.9 [facility] [place] [address] [id number] [place] [address] Apr [facility] [place] [address] [id number] [place] [address] Apr Type 2 diabetes mellitus with hyperglycemia E11.65 ; Subacute maxillary sinusitis J01.00 ; Diabetic neuropathy E11.40 and Sleep apnea in adult G47.30 [place] [address] [id number] [place] [address] Apr, [facility] [place] [address] [id number] [place] [address] Apr [facility] [place] [address] [id number] [place] [address] Apr [facility] [place] [address] [id number] [place] [address] Apr Subacute maxillary sinusitis J01.00 [place] [address] [address] Apr, Right foot drop M21.371 [facility] [place] [address] [id number] [place] [address] Apr [facility] [place] [address] [id number] [place] [address] Mar [facility] [place] [address] [id number] [place] [address] Mar Essential hypertension I10 ; Type 2 diabetes mellitus with hyperglycemia E11.65 ; Encounter for immunization Z23 ; Cocaine abuse F14.10 and Hyperlipidemia, unspecified E78.5 [facility] [place] [address] [id number] [place] [address] Mar [place] [address] [id number] [address] Mar, [facility] [place] [address] [id number] [place] [address] Feb [facility] [place] [address] [id number] [place] [address] Feb Type 2 diabetes mellitus with hyperglycemia E11.65 and Acute right ankle pain M25.571 [facility] [place] [address] [id number] [place] [address] Feb Weight loss R63.4 and Anxiety F41.9 [place] [address] [id number] [address] Jan, [facility] [address] [address] Jan, [facility] [address] [address] Jan, [facility] [address] [address] Jan, Diabetes E11.9 [facility] MAN [address] [id number] [place] [address] Jan Sprain of right ankle, unspecified ligament, initial encounter S93.401A [facility]ITALG[facility] [place] [address] [id number] [place] [address] Jan Essential hypertension I10 ; Anxiety F41.9 and Type 2 diabetes mellitus with hyperglycemia E11.65 [facility] [address] [address] Jan, Diabetes E11.9 [facility] [address]65[address] [address] Jan, [facility] [address] [place] [address] Jan, [facility] [place] [address] [id number] [place] [address] Jan [facility] [address] [address] Jan, [facility] [address]65[address] [address] Jan, [facility] [address]65[address] [address] Jan, [facility] [address]65[address] [address] Jan, [facility] [address]65[address] [address] Jan, Unintentional weight loss R63.4 ; Stage 2 chronic kidney disease N18.2 ; Exposure to hepatitis C Z20.5 ; Diabetic neuropathy E11.40 ; Obstructive sleep apnea syndrome G47.33 ; Essential hypertension I10 and Type 2 diabetes mellitus with hyperglycemia E11.65 [facility] [address] [address] Jan, [facility] [id number] [place] [address] Jan, Type 2 diabetes mellitus with hyperglycemia E11.65 ; Diabetic neuropathy E11.40 and Essential hypertension I10 [facility] [address] [place] [address] Dec, Diabetes E11.9 [facility] [address] [place] [address] Dec, [facility] [id number] [place] [address] Dec, [facility] [address] [place] [address] Dec, [facility] [id number] [place] [address] Dec, Dental examination Z01.20 [facility] [address] [place] [address] Dec, [facility] [address] [place] [address] Dec, Diabetes E11.9 [facility] [address]65[address] [address] Dec, Stage 2 chronic kidney disease N18.2 ; Exposure to hepatitis C Z20.5 ; Obstructive sleep apnea syndrome G47.33 and Type 2 diabetes mellitus with hyperglycemia E11.65 [facility] [address]65[address] [address] Dec, [facility] [place] [address] [id number] [place] [address] Dec Diabetes E11.9 and Essential hypertension I10 [facility] [address] [facility] [id number] [place] [address] Nov, Diabetes E11.9 [facility] [address] [id number] [place] [address] Nov, Right foot pain M79.671 [facility] [address] [id number] [place] [address] Nov, Right foot pain M79.671 [facility] [place] [address] [id number] [place] [address] Nov Diabetes E11.9 [facility] [place] [address] [id number] [place] [address] Nov Diabetes E11.9 [facility] [address] [id number] [place] [address] Nov, Dental examination Z01.20 [facility] [place] [address] [id number] [place] [address] Nov Diabetes E11.9 ; Cocaine abuse F14.10 and Shingles (herpes zoster) polyneuropathy B02.23 [facility] [place] [address] [id number] [place] [address] Nov [facility] [address] [facility] [id number] [place] [address] October, [facility] [place] [address] [id number] [place] [address] October [facility] [place] [address] [id number] [place] [address] October Unintentional weight loss R63.4 [facility] [place] [address] [id number] [place] [address] October Abscess L02.91 [facility] [place] [address] [id number] [place] [address] October Diabetes E11.9 ; Unintentional weight loss R63.4 ; History of hematuria Z87.448 and Cocaine abuse F14.10 [facility] [place] [address] [id number] [place] [address] October Diabetes E11.9 [facility] [place] [address] [id number] [place] [address] October Essential hypertension I10 and Abscess L02.91 [facility] [place] [address] [id number] [place] [address] Jun [facility] [place] [address] [id number] [place] [address] May Breast cancer screening Z12.39 ; Diabetes E11.9 and Anxiety F41.9 [facility] [place] [address] [facility] [id number] [place] [address] May, Diabetes E11.9 [facility] [place] [address] [id number] [place] [address] May Diabetes E11.9 and Anemia D64.9 [facility] [place] [address] [id number] [place] [address] May Anxiety F41.9 [facility] [place] [address] [id number] [place] [address] 08 May [facility] [place] [address] [id number] [place] [address] May Dysuria R30.0 [facility] [place] [address] [id number] [place] [address] May [facility] [place] [address] [id number] [place] [address] 05 May Dysuria R30.0 and Vaginal itching L29.8 [facility] [address] [facility] [id number] [place] [address] Apr, [facility] [place] [address] [id number] [place] [address] 14 Apr Diabetes E11.9 ; Dysuria R30.0 ; Diabetic neuropathy E11.40 ; Anemia D64.9 and Vaginal discharge N89.8 [facility] [address] [id number] [address] Jun, [address]00565100[place] [address] Jun, Anemia D64.9 ; Anxiety F41.9 ; Diabetes E11.9 and Diabetic neuropathy E11.[address]00565100[place] [address] May, [facility] [address] [id number] [address] Apr, [place] [id number] [place] [phone] Apr, Anemia D64.9 ; Anxiety F41.9 ; Diabetes E11.9 and Diabetic neuropathy E11.40 [place] [address] [place] [id number] Mar, Acute costochondritis M94.0 [place] [id number] [place] [id number] Mar, Bilateral low back pain without sciatica M54.5 and Bereavement Z63.4 [place] [id number] [place] [phone] Mar, Obstructive chronic bronchitis with acute exacerbation J44.1 ; Herpes zoster without complication B02.9 and [place] N91.2 [place] [address] [place] [id number] Mar, [place] [address] [place] [id number] Mar, [place] [address] [place] [id number] Feb, History of recent traumatic injury of head V15.52 ; Diabetes type 2, uncontrolled 250.02 and Visual disturbance 368.9 [place] [address] [place] [phone] Feb, History of recent traumatic injury of head V15.52 ; Visual disturbance 368.9 and Diabetes type 2, uncontrolled 250.02 IMMUNIZATIONS No Known Immunizations SOCIAL HISTORY Never Assessed REASON FOR VISIT Request order PLAN OF CARE VITAL SIGNS MEDICATIONS Unknown [...] infection 2004 Hospitalization History in [facility]hab [facility] [place] 2016 Hospitalization History Stroke 05/2017 Hospitalization History surgeries Hospitalization History Elevated B/S 07/2017 Hospitalization History [facility] - blood clot LRE 10/2017 Hospitalization History [facility] - R ankle clot 11/2017
--- OUTSIDE RECORDS SUMMARY | 2018-05-13 10:41 | XMS REPORT ---
Author Author CHRIS BECKWITH [facility] Address [address] [place] [address] Care Team Providers Care Observatory Director Name Role Phone CHRIS BECKWITH Unavailable PROBLEMS Type Condition ICD9-CM Code LOX97-QS Code Onset Dates Condition Status SNOMED Code Problem Sleep apnea in adult G47.30 Active 98238801 Problem Moderately severe depression F32.2 Active 241666332 Problem Hypoglycemia associated with type 2 diabetes mellitus E11.649 Active 368548802 Problem PVD (peripheral vascular disease) I73.9 Active 334411716 Problem PAD (peripheral artery disease) I73.9 Active 494381648 Problem Hypoglycemia E16.2 Active 073052357 Problem Cerebrovascular accident (CVA), unspecified mechanism I63.9 Active 056552687 Problem Breast asymmetry N64.89 Active 914607258 Problem Abnormal mammogram of right breast R92.8 Active 717295094 Problem Diabetic neuropathy E11.40 Active 629067725 Problem Anxiety F41.9 Active 04828195 Problem Obstructive sleep apnea syndrome G47.33 Active 56749013 Problem Stage 2 chronic kidney disease N18.2 Active 805789708 Problem Essential hypertension I10 Active 36774500 Problem Type 2 diabetes mellitus with hyperglycemia E11.65 Active 466483038148197 Problem Cocaine abuse F14.10 Active 51781175 Problem Hyperlipidemia, unspecified E78.5 Active 84155240 ALLERGIES Substance Reaction Event Type Date Status Phenergan nausea Drug Allergy Nov, Active Penicillin V Potassium nausea Drug Allergy Nov, Active Codeine Sulfate itch Drug Allergy Nov, Active ENCOUNTERS Encounter Location Date Diagnosis [facility] [address] [facility] [id number] [place] [address] Dec, [facility] [address] [id number] [place] [address] Nov [facility] [address] [id number] [place] [address] Nov [facility] [place] [address] [id number] [place] [address] Nov PVD (peripheral vascular disease) I73.9 ; Type 2 diabetes mellitus with hyperglycemia E11.65 and PAD (peripheral artery disease) I73.9 [facility] [place] [address] [id number] [place] [address] Nov [facility] [place] [address] [id number] [place] [address] Nov [facility] [place] [address] [id number] [place] [address] Nov [facility] [place] [address] [id number] [place] [address] October [facility] [place] [address] [id number] [place] [address] October [facility] [place] [address] [id number] [place] [address] October Type 2 diabetes mellitus with hyperglycemia E11.65 and Surgical procedure on lower extremity within past 6 months Z98.890 [facility] [place] [address] [id number] [place] [address] October [facility] [place] [address] [id number] [place] [address] [facility] [address] [facility] [id number] [place] [address] October, [facility] [place] [address] [id number] [place] [address] October Sleep apnea in adult G47.30 [facility] [place] [address] [id number] [place] [address] October Type 2 diabetes mellitus with hyperglycemia E11.65 [facility] [place] [address] [id number] [place] [address] Sep [facility] [place] [address] [id number] [place] [address] Sep Breast asymmetry N64.89 [facility] [place] [address] [id number] [place] [address] Sep [facility] [place] [address] [id number] [place] [address] Sep Type 2 diabetes mellitus with hyperglycemia E11.65 ; Cocaine abuse F14.10 and Open wound of right great toe, subsequent encounter S91.101D [facility] [place] [address] [id number] [place] [address] Sep [facility] [place] [address] [id number] [place] [address] Aug [facility] [place] [address] [id number] [place] [address] Aug [facility] [place] [address] [id number] [place] [address] Aug Type 2 diabetes mellitus with hyperglycemia E11.65 [facility] [place] [address] [id number] [place] [address] [facility] [address] [facility] [id number] [place] [address] Aug, [facility] [place] [address] [id number] [place] [address] Jul [facility] [place] [address] [id number] [place] [address] Jul Diabetic neuropathy E11.40 ; Essential hypertension I10 and Type 2 diabetes mellitus with hyperglycemia E11.65 [facility] [place] [address] [id number] [place] [address] Jul [facility] [place] [address] [id number] [place] [address] Jul [facility] [place] [address] [id number] [place] [address] Jul [facility] [place] [address] [id number] [place] [address] Jul [facility] [place] [address] [id number] [place] [address] Jul [facility] [place] [address] [id number] [place] [address] Jul Type 2 diabetes mellitus with hyperglycemia E11.65 ; Open wound of right great toe, subsequent encounter S91.101D ; Essential hypertension I10 and Diabetic neuropathy E11.[address] [facility] [id number] [place] [address] Jul, [facility] [place] [address] [id number] [place] [address] Jun [facility] [place] [address] [id number] [place] [address] Jun Type 2 diabetes mellitus with hyperglycemia E11.65 [facility] [place] [address] [id number] [place] [address] Jun [facility] [place] [address] [id number] [place] [address] Jun [facility] [place] [address] [id number] [place] [address] Jun Abnormal mammogram of right breast R92.8 and Breast asymmetry N64.89 [facility] [place] [address] [id number] [place] [address] Jun [facility] [place] [address] [id number] [place] [address] Jun [facility] [place] [address] [id number] [place] [address] May Hypoglycemia E16.2 [facility] [place] [address] [id number] [place] [address] May Abnormal neurological exam R29.90 [facility] [place] [address] [id number] [place] [address] May [facility] [place] [address] [id number] [place] [address] May Type 2 diabetes mellitus with hyperglycemia E11.65 [facility] [place] [address] [id number] [place] [address] May Breast cancer screening Z12.31 and Hematuria, unspecified type R31.9 [facility] [place] [address] [id number] [place] [address] May [facility] [place] [address] [id number] [place] [address] May Type 2 diabetes mellitus with hyperglycemia E11.65 ; Essential hypertension I10 ; Moderately severe depression F32.2 and Confusion R41.0 [place] [address] [address] 13 May, 2017 [facility] [place] [address] [id number] [place] [address] May Cerebrovascular accident (CVA), unspecified mechanism I63.9 ; Essential hypertension I10 ; Hyperlipidemia, unspecified E78.5 and Type 2 diabetes mellitus with hyperglycemia E11.65 [place] [address] [address] May, [place] [address] [address] May, [facility] [address] [id number] [place] [address] May [facility] [place] [address] [id number] [place] [address] May Diabetic neuropathy E11.40 and Diabetes E11.9 [facility] [place] [address] [id number] [place] [address] Apr [facility] [place] [address] [id number] [place] [address] Apr Subacute maxillary sinusitis J01.00 ; Hypoglycemia associated with type 2 diabetes mellitus E11.649 and Intractable episodic headache, unspecified headache type R51 [facility] [place] [address] [id number] [place] [address] Apr Diabetic neuropathy E11.40 and Anxiety F41.9 [facility] [place] [address] [id number] [place] [address] Apr [facility] [place] [address] [id number] [place] [address] Apr Type 2 diabetes mellitus with hyperglycemia E11.65 ; Subacute maxillary sinusitis J01.00 ; Diabetic neuropathy E11.40 and Sleep apnea in adult G47.30 [place] [address] [facility] [id number] [place] [address] Apr, [facility] [place] [address] [id number] [place] [address] Apr [facility] [place] [address] [id number] [place] [address] Apr [facility] [place] [address] [id number] [place] [address] Apr Subacute maxillary sinusitis J01.00 [place] [address] [facility] [id number] [place] [address] Apr, Right foot drop M21.371 [facility] [place] [address] [id number] [place] [address] Apr [facility] [place] [address] [id number] [place] [address] Mar [facility] [place] [address] [id number] [place] [address] Mar Essential hypertension I10 ; Type 2 diabetes mellitus with hyperglycemia E11.65 ; Encounter for immunization Z23 ; Cocaine abuse F14.10 and Hyperlipidemia, unspecified E78.5 [facility] [place] [address] [id number] [place] [address] Mar [place] [address] [facility] [id number] [place] [address] Mar, [facility] [place] [address] [id number] [place] [address] Feb [facility] [place] [address] [id number] [place] [address] Feb Type 2 diabetes mellitus with hyperglycemia E11.65 and Acute right ankle pain M25.571 [facility] [place] [address] [id number] [place] [address] Feb Weight loss R63.4 and Anxiety F41.9 [facility] [address], [place] [address] Jan, [facility] [address], [place] [address] Jan, [facility] [address] [place] [address] Jan, [facility] [address] [place] [address] Jan, Diabetes E11.9 [facility] [address] [id number] [place] [address] Jan Sprain of right ankle, unspecified ligament, initial encounter S93.401A [facility] [address] [id number] [place] [address] Jan Essential hypertension I10 ; Anxiety F41.9 and Type 2 diabetes mellitus with hyperglycemia E11.65 [facility] [address], [place] [address] Jan, Diabetes E11.9 [facility] [address] [place] [address] Jan, [facility] [address], [place] [address] Jan, [facility] [address] [id number] [place] [address] Jan [facility] [address], [place] [address] Jan, [facility] [address] [place] [id number] [place] [address] Jan, [facility] [address], [place] [address] Jan, [facility] [address] [place] [address] Jan, [facility] [address], [place] [address] Jan, Unintentional weight loss R63.4 ; Stage 2 chronic kidney disease N18.2 ; Exposure to hepatitis C Z20.5 ; Diabetic neuropathy E11.40 ; Obstructive sleep apnea syndrome G47.33 ; Essential hypertension I10 and Type 2 diabetes mellitus with hyperglycemia E11.65 [facility] [address] [place] [id number] [place] [address] Jan, [facility] [address] [place] [address] [id number] [place] [address] Jan, Type 2 diabetes mellitus with hyperglycemia E11.65 ; Diabetic neuropathy E11.40 and Essential hypertension I10 [facility] [address] [place] [address] [id number] [place] [address] Dec, Diabetes E11.9 [facility] [address] [place] [id number] [place] [address] Dec, [facility] [address] [place] [id number] [place] [address] Dec, [facility] [address] [place] [address] [id number] [place] [address] Dec, [facility] [address] [place] [address] [id number] [place] [address] Dec, Dental examination Z01.20 [facility] [address] [place] [address] [id number] [place] [address] Dec, [facility] [address] [place] [id number] [place] [address] Dec, Diabetes E11.9 [facility] [address] [place] [id number] [place] [address] Dec, Stage 2 chronic kidney disease N18.2 ; Exposure to hepatitis C Z20.5 ; Obstructive sleep apnea syndrome G47.33 and Type 2 diabetes mellitus with hyperglycemia E11.65 [facility] [address] [id number] [address] Dec, [facility] [place] [address] [id number] [place] [address] Dec Diabetes E11.9 and Essential hypertension I10 [facility] [address] [place] [id number] [address] Nov, Diabetes E11.9 [facility] [address] [place] [address] [id number] [address] Nov, Right foot pain M79.671 [facility] [address] [id number] [address] Nov, Right foot pain M79.671 [facility] [place] [address] [id number] [place] [address] Nov Diabetes E11.9 [facility] [place] [address] [id number] [place] [address] Nov Diabetes E11.9 [facility] [address] [place] [id number] [address] Nov, Dental examination Z01.20 [facility] [place] [address] [id number] [place] [address] Nov Diabetes E11.9 ; Cocaine abuse F14.10 and Shingles (herpes zoster) polyneuropathy B02.23 [facility] [place] [address] [id number] [place] [address] Nov [place] [address] [facility] [id number] [place] [address] October, [facility] [place] [address] [id number] [place] [address] October [facility] [place] [address] [id number] [place] [address] October Unintentional weight loss R63.4 [facility] [place] [address] [id number] [place] [address] October Abscess L02.91 [facility] [place] [address] [id number] [place] [address] October Diabetes E11.9 ; Unintentional weight loss R63.4 ; History of hematuria Z87.448 and Cocaine abuse F14.10 [facility] [place] [address] [id number] [place] [address] October Diabetes E11.9 [facility] [place] [address] [id number] [place] [address] October Essential hypertension I10 and Abscess L02.91 [facility] [place] [address] [id number] [place] [address] Jun [facility] [place] [address] [id number] [place] [address] May Breast cancer screening Z12.39 ; Diabetes E11.9 and Anxiety F41.9 [facility] [place] [address] [facility] [id number] [place] [address] 16 May, 2016 Diabetes E11.9 [facility] [place] [address] [id number] [place] [address] 15 May Diabetes E11.9 and Anemia D64.9 [facility] [place] [address] [id number] [place] [address] 14 May Anxiety F41.9 [facility] [place] [address] [id number] [place] [address] 08 May [facility] [place] [address] [id number] [place] [address] 06 May Dysuria R30.0 [facility] [place] [address] [id number] [place] [address] 06 May [facility] [place] [address] [id number] [place] [address] 05 May Dysuria R30.0 and Vaginal itching L29.[address] [facility] [address] [facility] [id number] [place] [address] 18 Apr, 2016 [facility] [place] [address] [id number] [place] [address] Apr Diabetes E11.9 ; Dysuria R30.0 ; Diabetic neuropathy E11.40 ; Anemia D64.9 and Vaginal discharge N89.8 [facility] [address] [place] [id number] [place] [address] Jun, [place] [id number] [place] [id number] Jun, Anemia D64.9 ; Anxiety F41.9 ; Diabetes E11.9 and Diabetic neuropathy E11.[address] [id number] May, [facility] [address] [address] Apr, [address] [id number] Apr, Anemia D64.9 ; Anxiety F41.9 ; Diabetes E11.9 and Diabetic neuropathy E11.[address] [id number] Mar, Acute costochondritis M94.[address] [id number] Mar, Bilateral low back pain without sciatica M54.5 and Bereavement Z63.[address] [id number] Mar, Obstructive chronic bronchitis with acute exacerbation J44.1 ; Herpes zoster without complication B02.9 and [place] N91.2 [place] [id number] [place] [id number] Mar, [address] [id number] Mar, [place] [id number] [place] [id number] 24 Feb, 2015 History of recent traumatic injury of head V15.52 ; Diabetes type 2, uncontrolled 250.02 and Visual disturbance 368.9 [facility] [address] [facility] [id number] [place] [id number] Feb, History of recent traumatic injury of head V15.52 ; Visual disturbance 368.9 and Diabetes type 2, uncontrolled 250.02 IMMUNIZATIONS Vaccine Route Administration Date Status BYDUREON (PT'S OWN) SC Subcutaneous November 14, 2017 Administered SOCIAL HISTORY Never Assessed REASON FOR VISIT Hospital f/u after stent placement and blood clot. Freeman. amadeo RN PLAN OF CARE Activity Details Follow Up 2 Weeks Reason:dm mgmt VITAL SIGNS Height 63.50 in 2017-11-14 Weight 120.9 lbs 2017-11-14 Temperature 98.4 degrees Fahrenheit 2017-11-14 Heart Rate 98 bpm 2017-11-14 Respiratory Rate 20 2017-11-14 Oximetry 99 % 2017-11-14 BMI 21.08 kg/m2 2017-11-14 Blood pressure systolic 136 mmHg 2017-11-14 Blood pressure diastolic 84 mmHg 2017-11-14 MEDICATIONS Medication Instructions Dosage Frequency Start Date End Date Duration Status Amlodipine Besylate 10 mg Orally Once a day 1 tablet 24h 30 Active Aspirin 81 MG Orally Once a day 1 tablet 24h 30 Active HydrOXYzine HCl 25 MG Orally 2 times a day as needed for anxieyt 1 tablet as needed Feb, 30 day(s) Active Ropinirole HCl 1 MG Orally at bedtime 1 tablet 1 to 3 hours before bedtime 30 days Active Glucocard Expression Test - subcutaneously 2 times a day as directed 12Nov, 30 days Active Gabapentin 300 MG Orally Once a day 1 capsule before bedtime 24h Active Pantoprazole Sodium 40 MG Orally Once a day 1 tablet 24h Active Bydureon BCise 2 MG/0.85ML Subcutaneous once weekly as directed October, October, Active Plavix 75 MG Orally Once a day 1 tablet 24h Active Acetaminophen 325 MG Orally every 4 hrs 1 tablet as needed 4h Active Atorvastatin Calcium 40 MG Orally Once a day 1 tablet 24h May, Active Aspirin 81 MG Orally Once a day 1 tablet 24h May, Active RESULTS No Results PROCEDURES Procedure Date Ordered Result Body Site No Charge November 14, 2017 THER/PROPH/DIAG INJ, SC/IM November 14, 2017 INSTRUCTIONS MEDICATIONS ADMINISTERED No Known Medications MEDICAL [...] infection 2004 Hospitalization History in rehab at [facility] 2016 Hospitalization History Stroke 05/2017 Hospitalization History surgeries Hospitalization History Elevated B/S 07/2017 Hospitalization History [facility] - blood clot LRE 10/2017 Hospitalization History [facility] - R ankle clot 11/2017
--- OUTSIDE RECORDS SUMMARY | 2018-05-13 10:42 | XMS REPORT ---
Author Author CHRIS BECKWITH [facility] Address [address] [place] [address] Care Team Providers Care Lining Stamper Name Role Phone CHRIS BECKWITH Unavailable PROBLEMS Type Condition ICD9-CM Code TPT31-MO Code Onset Dates Condition Status SNOMED Code Problem Sleep apnea in adult G47.30 Active 07014740 Problem Moderately severe depression F32.2 Active 637503332 Problem Hypoglycemia associated with type 2 diabetes mellitus E11.649 Active 992809570 Problem PVD (peripheral vascular disease) I73.9 Active 720377068 Problem PAD (peripheral artery disease) I73.9 Active 110579347 Problem Hypoglycemia E16.2 Active 189525809 Problem Cerebrovascular accident (CVA), unspecified mechanism I63.9 Active 608189712 Problem Breast asymmetry N64.89 Active 439981081 Problem Abnormal mammogram of right breast R92.8 Active 100099571 Problem Diabetic neuropathy E11.40 Active 221114864 Problem Anxiety F41.9 Active 89395031 Problem Obstructive sleep apnea syndrome G47.33 Active 27849555 Problem Stage 2 chronic kidney disease N18.2 Active 167972910 Problem Essential hypertension I10 Active 29359035 Problem Type 2 diabetes mellitus with hyperglycemia E11.65 Active 677019920808851 Problem Cocaine abuse F14.10 Active 53347968 Problem Hyperlipidemia, unspecified E78.5 Active 43844479 ALLERGIES No Information ENCOUNTERS Encounter Location Date Diagnosis [facility], [place] [address] [facility] [id number] [place] [address] Dec, [facility] [place] [address] [id number] [place] [address] Nov [facility] [place] [address] [id number] [place] [address] Nov [facility] [place] [address] [id number] [place] [address] Nov PVD (peripheral vascular disease) I73.9 ; Type 2 diabetes mellitus with hyperglycemia E11.65 and PAD (peripheral artery disease) I73.9 [facility] [place] [address] [id number] [place] [address] Nov [facility] [place] [address] [id number] [place] [address] Nov [facility] [place] [address] [id number] [place] [address] Nov [facility] [place] [address] [id number] [place] [address] October [facility] [place] [address] [id number] [place] [address] October [facility] [place] [address] [id number] [place] [address] October Type 2 diabetes mellitus with hyperglycemia E11.65 and Surgical procedure on lower extremity within past 6 months Z98.890 [facility] [place] [address] [id number] [place] [address] October [facility] [place] [address] [id number] [place] [address] October [facility] [address] [facility] [id number] [place] [address] October, [facility] [place] [address] [id number] [place] [address] October Sleep apnea in adult G47.30 [facility] [place] [address] [id number] [place] [address] October Type 2 diabetes mellitus with hyperglycemia E11.65 [facility] [place] [address] [id number] [place] [address] Sep [facility] [place] [address] [id number] [place] [address] Sep Breast asymmetry N64.89 [facility] [place] [address] [id number] [place] [address] Sep [facility] [place] [address] [id number] [place] [address] Sep Type 2 diabetes mellitus with hyperglycemia E11.65 ; Cocaine abuse F14.10 and Open wound of right great toe, subsequent encounter S91.101D [facility] [place] [address] [id number] [place] [address] Sep [facility] [place] [address] [id number] [place] [address] Aug [facility] [place] [address] [id number] [place] [address] Aug [facility] [place] [address] [id number] [place] [address] Aug Type 2 diabetes mellitus with hyperglycemia E11.65 [facility] [place] [address] [id number] [place] [address] Aug [facility] [address] [facility] [id number] [place] [address] Aug, [facility] [place] [address] [id number] [place] [address] Jul [facility] [place] [address] [id number] [place] [address] Jul Diabetic neuropathy E11.40 ; Essential hypertension I10 and Type 2 diabetes mellitus with hyperglycemia E11.65 [facility] [place] [address] [id number] [place] [address] Jul [facility] [place] [address] [id number] [place] [address] Jul [facility] [place] [address] [id number] [place] [address] Jul [facility] [place] [address] [id number] [place] [address] Jul [facility] [place] [address] [id number] [place] [address] Jul [facility] [place] [address] [id number] [place] [address] Jul Type 2 diabetes mellitus with hyperglycemia E11.65 ; Open wound of right great toe, subsequent encounter S91.101D ; Essential hypertension I10 and Diabetic neuropathy E11.[address] [facility] [address] [id number] [place] [address] Jul, [facility] [place] [address] [id number] [place] [address] Jun [facility] [place] [address] [id number] [place] [address] Jun Type 2 diabetes mellitus with hyperglycemia E11.65 [facility] [place] [address] [id number] [place] [address] Jun [facility] [place] [address] [id number] [place] [address] Jun [facility] [place] [address] [id number] [place] [address] Jun Abnormal mammogram of right breast R92.8 and Breast asymmetry N64.89 [facility] [place] [address] [id number] [place] [address] Jun [facility] [place] [address] [id number] [place] [address] Jun [facility] [place] [address] [id number] [place] [address] May Hypoglycemia E16.2 [facility] [place] [address] [id number] [place] [address] May Abnormal neurological exam R29.90 [facility] [place] [address] [id number] [place] [address] May [facility] [place] [address] [id number] [place] [address] May Type 2 diabetes mellitus with hyperglycemia E11.65 [facility] [place] [address] [id number] [place] [address] May Breast cancer screening Z12.31 and Hematuria, unspecified type R31.9 [facility] [place] [address] [id number] [place] [address] May [facility]ITAL[facility]lefiveONS [address] [id number] [place] [address] May Type 2 diabetes mellitus with hyperglycemia E11.65 ; Essential hypertension I10 ; Moderately severe depression F32.2 and Confusion R41.0 [place] [address] [id number] [address] May, [facility]ITALTripleGiftCON[facility] [address] [id number] [place] [address] May Cerebrovascular accident (CVA), unspecified mechanism I63.9 ; Essential hypertension I10 ; Hyperlipidemia, unspecified E78.5 and Type 2 diabetes mellitus with hyperglycemia E11.65 [place] [address], [place] [address] May, [place] [address] [id number], [place] [address] May, [facility]ITALTripleGiftCON[place] [address] [id number] [place] [address] May [facility]ITALTripleGiftCON[facility] [address] [id number] [place] [address] May Diabetic neuropathy E11.40 and Diabetes E11.9 [facility] [place] [address] [id number] [place] [address] Apr [facility]ITAL[facility]le[facility]ONS [address] [id number] [place] [address] Apr Subacute maxillary sinusitis J01.00 ; Hypoglycemia associated with type 2 diabetes mellitus E11.649 and Intractable episodic headache, unspecified headache type R51 [facility] [place] [address] [id number] [place] [address] Apr Diabetic neuropathy E11.40 and Anxiety F41.9 [facility] [place] [address] [id number] [place] [address] Apr [facility]ITAL[facility] [place] [address] [id number] [place] [address] Apr Type 2 diabetes mellitus with hyperglycemia E11.65 ; Subacute maxillary sinusitis J01.00 ; Diabetic neuropathy E11.40 and Sleep apnea in adult G47.30 [place] [address] [id number] [address] Apr, [facility] [place] [address] [id number] [place] [address] Apr [facility] [place] [address] [id number] [place] [address] Apr [facility] [place] [address] [id number] [place] [address] Apr Subacute maxillary sinusitis J01.00 [place] [address], [place] [address] Apr, Right foot drop M21.371 [facility] [place] [address] [id number] [place] [address] Apr [facility] [place] [address] [id number] [place] [address] Mar [facility] [place] [address] [id number] [place] [address] Mar Essential hypertension I10 ; Type 2 diabetes mellitus with hyperglycemia E11.65 ; Encounter for immunization Z23 ; Cocaine abuse F14.10 and Hyperlipidemia, unspecified E78.5 [facility] [place] [address] [id number] [place] [address] Mar [place] [address] [id number], [place] [address] Mar, [facility] [place] [address] [id number] [place] [address] Feb [facility] [place] [address] [id number] [place] [address] Feb Type 2 diabetes mellitus with hyperglycemia E11.65 and Acute right ankle pain M25.571 [facility] [place] [address] [id number] [place] [address] Feb Weight loss R63.4 and Anxiety F41.9 [place] [address] [id number], [place] [address] Jan, [facility], [place] [address], [place] [address] Jan, [facility], [place] [address], [place] [address] Jan, [facility], [place] [address], [place] [address] Jan, Diabetes E11.9 [facility] [place] [address] [id number] [place] [address] Jan Sprain of right ankle, unspecified ligament, initial encounter S93.401A [facility]ITALG[facility] [place] [address] [id number] [place] [address] Jan Essential hypertension I10 ; Anxiety F41.9 and Type 2 diabetes mellitus with hyperglycemia E11.65 [facility], [place] [address], [place] [address] Jan, Diabetes E11.9 [facility], [place] [address], [place] [address] Jan, [facility], [place] [address] [place] [address] Jan, [facility] [place] [address] [id number] [place] [address] Jan [facility], [place] [address], [place] [address] Jan, [facility], [place] [address]65100[place], [place] [address] Jan, [facility], [place] [address], [place] [address] Jan, [facility], [place] [address], [place] [address] Jan, [facility], [place] [address], [place] [address] Jan, Unintentional weight loss R63.4 ; Stage 2 chronic kidney disease N18.2 ; Exposure to hepatitis C Z20.5 ; Diabetic neuropathy E11.40 ; Obstructive sleep apnea syndrome G47.33 ; Essential hypertension I10 and Type 2 diabetes mellitus with hyperglycemia E11.65 [facility], [place] [address], [place] [address] Jan, [facility], [place] [id number] [place] [address] Jan, Type 2 diabetes mellitus with hyperglycemia E11.65 ; Diabetic neuropathy E11.40 and Essential hypertension I10 [facility], [place] [address] [place] [address] Dec, Diabetes E11.9 [facility], [place] [address] [place] [address] Dec, [facility], [place] [id number] [place] [address] Dec, [facility], [place] [address] [place] [address] Dec, [facility], [place] [id number] [place] [address] Dec, Dental examination Z01.20 [facility], [place] [address] [place] [address] Dec, [facility], [place] [address] [place] [address] Dec, Diabetes E11.9 [facility], [place] [address], [place] [address] Dec, Stage 2 chronic kidney disease N18.2 ; Exposure to hepatitis C Z20.5 ; Obstructive sleep apnea syndrome G47.33 and Type 2 diabetes mellitus with hyperglycemia E11.65 [facility], [place] [address], [place] [address] Dec, [facility] [place] [address] [id number] [place] [address] Dec Diabetes E11.9 and Essential hypertension I10 [facility] [place] [address] [facility] [id number] [place] [address] Nov, Diabetes E11.9 [facility], [place] [address] [id number] [address] Nov, Right foot pain M79.671 [facility] [address] [id number] [id number] Nov, Right foot pain M79.671 [facility] [place] [address] [id number] [place] [address] Nov Diabetes E11.9 [facility] [place] [address] [id number] [place] [address] Nov Diabetes E11.9 [facility] [address] [id number] [id number] Nov, Dental examination Z01.20 [facility] [place] [address] [id number] [place] [address] Nov Diabetes E11.9 ; Cocaine abuse F14.10 and Shingles (herpes zoster) polyneuropathy B02.23 [facility] [place] [address] [id number] [place] [address] Nov [facility] [place] [address] [facility] [id number] [place] [address] October, [facility] [place] [address] [id number] [place] [address] October [facility] [place] [address] [id number] [place] [address] October Unintentional weight loss R63.4 [facility] [place] [address] [id number] [place] [address] October Abscess L02.91 [facility] [place] [address] [id number] [place] [address] October Diabetes E11.9 ; Unintentional weight loss R63.4 ; History of hematuria Z87.448 and Cocaine abuse F14.10 [facility] [place] [address] [id number] [place] [address] October Diabetes E11.9 [facility] [place] [address] [id number] [place] [address] October Essential hypertension I10 and Abscess L02.91 [facility] [place] [address] [id number] [place] [address] Jun [facility] [place] [address] [id number] [place] [address] May Breast cancer screening Z12.39 ; Diabetes E11.9 and Anxiety F41.9 [facility] [place] [address] [facility] [id number] [place] [address] May, Diabetes E11.9 [facility] [place] [address] [id number] [place] [address] May Diabetes E11.9 and Anemia D64.9 [facility] [place] [address] [id number] [place] [address] May Anxiety F41.9 [facility] [place] [address] [id number] [place] [address] 08 May [facility] [place] [address] [id number] [place] [address] May Dysuria R30.0 [facility] [place] [address] [id number] [place] [address] May [facility] [place] [address] [id number] [place] [address] 05 May Dysuria R30.0 and Vaginal itching L29.8 [facility], [place] [address] [facility] [id number] [place] [address] Apr, [facility] [place] [address] [id number] [place] [address] 14 Apr Diabetes E11.9 ; Dysuria R30.0 ; Diabetic neuropathy E11.40 ; Anemia D64.9 and Vaginal discharge N89.8 [facility], [place] [address] 05838B00565100[place], [place] [address] Jun, [address]65[address] [id number] Jun, Anemia D64.9 ; Anxiety F41.9 ; Diabetes E11.9 and Diabetic neuropathy E11.40 [address]65[address] [id number] May, [facility], [place] [address] 4592765100[place], [place] [address] Apr, [place] [id number] [place] [id number] Apr, Anemia D64.9 ; Anxiety F41.9 ; Diabetes E11.9 and Diabetic neuropathy E11.40 [address] [place] [id number] [place] [id number] Mar, Acute costochondritis M94.0 [place] [id number] [place] [id number] Mar, Bilateral low back pain without sciatica M54.5 and Bereavement Z63.4 [place] [id number] [place] [phone] Mar, Obstructive chronic bronchitis with acute exacerbation J44.1 ; Herpes zoster without complication B02.9 and [place] N91.2 [address] [place] [id number] [place] [id number] Mar, [place] [id number] [place] [phone] Mar, [place] [address] [place] [id number] Feb, History of recent traumatic injury of head V15.52 ; Diabetes type 2, uncontrolled 250.02 and Visual disturbance 368.9 [address] [place] [id number] [place] [address] [id number] Feb, History of recent traumatic injury of head V15.52 ; Visual disturbance 368.9 and Diabetes type 2, uncontrolled 250.02 IMMUNIZATIONS No Known Immunizations SOCIAL HISTORY Never Assessed REASON FOR VISIT Medication question PLAN OF CARE VITAL SIGNS MEDICATIONS Medication Instructions Dosage Frequency Start Date End Date Duration Status Gabapentin 300 MG Orally 2 times a day 1 capsule 12h 30 Active RESULTS No Results PROCEDURES No Known procedures [...] infection 2004 Hospitalization History in rehab at [place] 2016 Hospitalization History Stroke 05/2017 Hospitalization History surgeries Hospitalization History Elevated B/S 07/2017 Hospitalization History [facility] - blood clot LRE 10/2017 Hospitalization History [facility] - R ankle clot 11/2017
--- OUTSIDE RECORDS SUMMARY | 2018-05-13 10:43 | XMS REPORT ---
Author Author CHRIS BECKWITH [facility] Address [address] [place] [address] Care Team Providers Care Inseamer Name Role Phone CHRIS BECKWITH Unavailable PROBLEMS Type Condition ICD9-CM Code KZG46-RG Code Onset Dates Condition Status SNOMED Code Problem Sleep apnea in adult G47.30 Active 51471011 Problem Moderately severe depression F32.2 Active 005643660 Problem Hypoglycemia associated with type 2 diabetes mellitus E11.649 Active 899301708 Problem PVD (peripheral vascular disease) I73.9 Active 701147611 Problem PAD (peripheral artery disease) I73.9 Active 165301405 Problem Hypoglycemia E16.2 Active 435565971 Problem Cerebrovascular accident (CVA), unspecified mechanism I63.9 Active 866237011 Problem Breast asymmetry N64.89 Active 463437414 Problem Abnormal mammogram of right breast R92.8 Active 268672456 Problem Diabetic neuropathy E11.40 Active 389014557 Problem Anxiety F41.9 Active 53059467 Problem Obstructive sleep apnea syndrome G47.33 Active 99568646 Problem Stage 2 chronic kidney disease N18.2 Active 027394803 Problem Essential hypertension I10 Active 86530402 Problem Type 2 diabetes mellitus with hyperglycemia E11.65 Active 484734557031967 Problem Cocaine abuse F14.10 Active 67374843 Problem Hyperlipidemia, unspecified E78.5 Active 45709184 ALLERGIES No Information ENCOUNTERS Encounter Location Date Diagnosis [facility] [address] [facility] [id number] [place] [address] Dec, [facility] [place] [address] [id number] [place] [address] Nov [facility] [address] [id number] [place] [address] Nov [facility] [place] [address] [id number] [place] [address] Nov PVD (peripheral vascular disease) I73.9 ; Type 2 diabetes mellitus with hyperglycemia E11.65 and PAD (peripheral artery disease) I73.9 [facility] [place] [address] [id number] [place] [address] Nov [facility] [place] [address] [id number] [place] [address] Nov [facility] [place] [address] [id number] [place] [address] Nov [facility] [place] [address] [id number] [place] [address] October [facility] [place] [address] [id number] [place] [address] October [facility] [place] [address] [id number] [place] [address] October Type 2 diabetes mellitus with hyperglycemia E11.65 and Surgical procedure on lower extremity within past 6 months Z98.890 [facility] [place] [address] [id number] [place] [address] October [facility] [place] [address] [id number] [place] [address] October [facility] [address] [facility] [id number] [place] [address] October, [facility] [place] [address] [id number] [place] [address] October Sleep apnea in adult G47.30 [facility] [place] [address] [id number] [place] [address] October Type 2 diabetes mellitus with hyperglycemia E11.65 [facility] [place] [address] [id number] [place] [address] Sep [facility] [place] [address] [id number] [place] [address] Sep Breast asymmetry N64.89 [facility] [place] [address] [id number] [place] [address] Sep [facility] [place] [address] [id number] [place] [address] Sep Type 2 diabetes mellitus with hyperglycemia E11.65 ; Cocaine abuse F14.10 and Open wound of right great toe, subsequent encounter S91.101D [facility] [place] [address] [id number] [place] [address] Sep [facility] [place] [address] [id number] [place] [address] Aug [facility] [place] [address] [id number] [place] [address] Aug [facility] [place] [address] [id number] [place] [address] Aug Type 2 diabetes mellitus with hyperglycemia E11.65 [facility] [place] [address] [id number] [place] [address] Aug [facility] [address] [facility] [id number] [place] [address] Aug, [facility] [place] [address] [id number] [place] [address] Jul [facility] [place] [address] [id number] [place] [address] Jul Diabetic neuropathy E11.40 ; Essential hypertension I10 and Type 2 diabetes mellitus with hyperglycemia E11.65 [facility] [place] [address] [id number] [place] [address] Jul [facility] [place] [address] [id number] [place] [address] Jul [facility] [place] [address] [id number] [place] [address] Jul [facility] [place] [address] [id number] [place] [address] Jul [facility] [place] [address] [id number] [place] [address] Jul [facility] [place] [address] [id number] [place] [address] Jul Type 2 diabetes mellitus with hyperglycemia E11.65 ; Open wound of right great toe, subsequent encounter S91.101D ; Essential hypertension I10 and Diabetic neuropathy E11.[address] [facility] [address] [id number] [place] [address] Jul, [facility] [place] [address] [id number] [place] [address] Jun [facility] [place] [address] [id number] [place] [address] Jun Type 2 diabetes mellitus with hyperglycemia E11.65 [facility] [place] [address] [id number] [place] [address] Jun [facility] [place] [address] [id number] [place] [address] Jun [facility] [place] [address] [id number] [place] [address] Jun Abnormal mammogram of right breast R92.8 and Breast asymmetry N64.89 [facility] [place] [address] [id number] [place] [address] Jun [facility] [place] [address] [id number] [place] [address] Jun [facility] [place] [address] [id number] [place] [address] May Hypoglycemia E16.2 [facility] [place] [address] [id number] [place] [address] May Abnormal neurological exam R29.90 [facility] [place] [address] [id number] [place] [address] May [facility] [place] [address] [id number] [place] [address] May Type 2 diabetes mellitus with hyperglycemia E11.65 [facility] [place] [address] [id number] [place] [address] May Breast cancer screening Z12.31 and Hematuria, unspecified type R31.9 [facility] [place] [address] [id number] [place] [address] May [facility]OSPITALPrêt d'UnionONS [address] [id number] [place] [address] May Type 2 diabetes mellitus with hyperglycemia E11.65 ; Essential hypertension I10 ; Moderately severe depression F32.2 and Confusion R41.0 [place] [address] [id number] [place] [address] May, [facility]ENTERAutomateItCON[place] [address] [id number] [place] [address] May Cerebrovascular accident (CVA), unspecified mechanism I63.9 ; Essential hypertension I10 ; Hyperlipidemia, unspecified E78.5 and Type 2 diabetes mellitus with hyperglycemia E11.65 [place] [address]005[address]100[place] [address] May, [place] [address] [id number] [address] May, [facility]ENTERAutomateIt[place] [address] [id number] [place] [address] May [facility]ENTERAutomateIt[place] [address] [id number] [place] [address] May Diabetic neuropathy E11.40 and Diabetes E11.9 [email or web address] [place] [address] [id number] [place] [address] Apr [facility]OSPITALPrêt d'UnionONS [address] [id number] [place] [address] Apr Subacute maxillary sinusitis J01.00 ; Hypoglycemia associated with type 2 diabetes mellitus E11.649 and Intractable episodic headache, unspecified headache type R51 [facility] [place] [address] [id number] [place] [address] Apr Diabetic neuropathy E11.40 and Anxiety F41.9 [facility]ALSER[facility] [place] [address] [id number] [place] [address] Apr [email or web address] [place] [address] [id number] [place] [address] Apr Type 2 diabetes mellitus with hyperglycemia E11.65 ; Subacute maxillary sinusitis J01.00 ; Diabetic neuropathy E11.40 and Sleep apnea in adult G47.30 [place] [address] [id number] [place] [address] Apr, [facility] [place] [address] [id number] [place] [address] [facility] [place] [address] [id number] [place] [address] Apr [facility] [place] [address] [id number] [place] [address] Apr Subacute maxillary sinusitis J01.00 [place] [address]005[address]100[place] [address] Apr, Right foot drop M21.371 [facility] [place] [address] [id number] [place] [address] [facility] [place] [address] [id number] [place] [address] Mar [facility] [place] [address] [id number] [place] [address] Mar Essential hypertension I10 ; Type 2 diabetes mellitus with hyperglycemia E11.65 ; Encounter for immunization Z23 ; Cocaine abuse F14.10 and Hyperlipidemia, unspecified E78.5 [facility] [place] [address] [id number] [place] [address] Mar [place] [address] [id number] [address] Mar, [facility] [place] [address] [id number] [place] [address] Feb [facility] [place] [address] [id number] [place] [address] Feb Type 2 diabetes mellitus with hyperglycemia E11.65 and Acute right ankle pain M25.571 [facility] [place] [address] [id number] [place] [address] Feb Weight loss R63.4 and Anxiety F41.9 [place] [address] [id number] [address] Jan, [facility] [address]005[address]100[place] [address] Jan, [facility] [address]00565100[place] [address] Jan, [facility] [address]00565100[place] [address] Jan, Diabetes E11.9 [facility] MAN [address] [id number] [place] [address] Jan Sprain of right ankle, unspecified ligament, initial encounter S93.401A [facility]ENTERG[facility] [place] [address] [id number] [place] [address] Jan Essential hypertension I10 ; Anxiety F41.9 and Type 2 diabetes mellitus with hyperglycemia E11.65 [facility] [address]00565100[place], [place] [address] Jan, Diabetes E11.9 [facility] [address]00565100[place], [place] [address] Jan, [facility] [address] [place] [address] Jan, [facility] [place] [address] [id number] [place] [address] Jan [facility] [address]00565100[place] [address] Jan, [facility] [address]00565100[place] [address] Jan, [facility] [address]00565100[place] [address] Jan, [facility] [address]00565100[place] [address] Jan, [facility] [address]00565100[place] [address] Jan, Unintentional weight loss R63.4 ; Stage 2 chronic kidney disease N18.2 ; Exposure to hepatitis C Z20.5 ; Diabetic neuropathy E11.40 ; Obstructive sleep apnea syndrome G47.33 ; Essential hypertension I10 and Type 2 diabetes mellitus with hyperglycemia E11.65 [facility] [address]00565100[place] [address] Jan, [facility] [id number] [place] [address] Jan, Type 2 diabetes mellitus with hyperglycemia E11.65 ; Diabetic neuropathy E11.40 and Essential hypertension I10 [facility] [address] [place] [address] Dec, Diabetes E11.9 [facility] [address] [place] [address] Dec, [facility] [id number] [place] [address] Dec, [facility] [address] [place] [address] Dec, [facility] [id number] [place] [address] Dec, Dental examination Z01.20 [facility] [address] [place] [address] Dec, [facility] [address] [place] [address] Dec, Diabetes E11.9 [facility] [address]00565100[place] [address] Dec, Stage 2 chronic kidney disease N18.2 ; Exposure to hepatitis C Z20.5 ; Obstructive sleep apnea syndrome G47.33 and Type 2 diabetes mellitus with hyperglycemia E11.65 [facility] [address]00565100[place] [address] Dec, [facility] [place] [address] [id number] [place] [address] Dec Diabetes E11.9 and Essential hypertension I10 [facility] [address] [facility] [id number] [place] [address] Nov, Diabetes E11.9 [facility] [address] [id number] [address] Nov, Right foot pain M79.671 [facility] [address] [id number] [address] Nov, Right foot pain M79.671 [facility] [place] [address] [id number] [place] [address] [facility] O[place] [address] [id number] [place] [address] Nov Diabetes E11.9 [facility] [address] [id number] [place] [address] Nov, Dental examination Z01.20 [facility] [place] [address] [id number] [place] [address] Nov Diabetes E11.9 ; Cocaine abuse F14.10 and Shingles (herpes zoster) polyneuropathy B02.23 [facility] [place] [address] [id number] [place] [address] Nov [facility] [address] [facility] [id number] [place] [address] October, [facility] [place] [address] [id number] [place] [address] October [facility] [place] [address] [id number] [place] [address] October Unintentional weight loss R63.4 [facility] [place] [address] [id number] [place] [address] October Abscess L02.91 [facility] [place] [address] [id number] [place] [address] October Diabetes E11.9 ; Unintentional weight loss R63.4 ; History of hematuria Z87.448 and Cocaine abuse F14.10 [facility] [place] [address] [id number] [place] [address] October Diabetes E11.9 [facility] [place] [address] [id number] [place] [address] October Essential hypertension I10 and Abscess L02.91 [facility] [place] [address] [id number] [place] [address] Jun [facility] [place] [address] [id number] [place] [address] May Breast cancer screening Z12.39 ; Diabetes E11.9 and Anxiety F41.9 [facility] [place] [address] [facility] [id number] [place] [id number] May, Diabetes E11.9 [facility] [place] [address] [id number] [place] [address] May Diabetes E11.9 and Anemia D64.9 [facility] [place] [address] [id number] [place] [address] May Anxiety F41.9 [facility] [place] [address] [id number] [place] [address] 08 May [facility] [place] [address] [id number] [place] [address] May Dysuria R30.0 [facility] [place] [address] [id number] [place] [address] May [facility] [place] [address] [id number] [place] [address] 05 May Dysuria R30.0 and Vaginal itching L29.8 [facility] [address] [facility] [id number] [place] [address] Apr, [facility] [place] [address] [id number] [place] [address] 14 Apr Diabetes E11.9 ; Dysuria R30.0 ; Diabetic neuropathy E11.40 ; Anemia D64.9 and Vaginal discharge N89.8 [facility] [address] [id number] [address] Jun, [address]00565100[place] [address] Jun, Anemia D64.9 ; Anxiety F41.9 ; Diabetes E11.9 and Diabetic neuropathy E11.40 [address]00565100[place] [id number] May, [facility] [address] [id number], [place] [address] Apr, [place] [id number] [place] [id number] Apr, Anemia D64.9 ; Anxiety F41.9 ; Diabetes E11.9 and Diabetic neuropathy E11.40 [place] [id number] [place] [id number] Mar, Acute costochondritis M94.0 [place] [address] [place] [id number] Mar, Bilateral low back pain without sciatica M54.5 and Bereavement Z63.4 [place] [address] [place] [id number] Mar, Obstructive chronic bronchitis with acute exacerbation J44.1 ; Herpes zoster without complication B02.9 and Orr N91.2 [place] [address] [place] [id number] Mar, [place] [address] [place] [id number] Mar, [place] [address] [place] [id number] Feb, History of recent traumatic injury of head V15.52 ; Diabetes type 2, uncontrolled 250.02 and Visual disturbance 368.9 [place] [address] [place] [id number] Feb, History of recent traumatic injury of head V15.52 ; Visual disturbance 368.9 and Diabetes type 2, uncontrolled 250.02 IMMUNIZATIONS No Known Immunizations SOCIAL HISTORY Never Assessed REASON FOR VISIT FYI only PLAN OF CARE VITAL SIGNS MEDICATIONS Unknown [...] infection 2004 Hospitalization History in [facility] 2016 Hospitalization History Stroke 05/2017 Hospitalization History surgeries Hospitalization History Elevated B/S 07/2017 Hospitalization History [facility] - blood clot LRE 10/2017 Hospitalization History [facility] - R ankle clot 11/2017
--- OUTSIDE RECORDS SUMMARY | 2018-05-13 10:43 | XMS REPORT ---
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 Phone CHRIS BECKWITH Unavailable PROBLEMS Type Condition ICD9-CM Code [id number] Code Onset Dates Condition Status SNOMED Code Problem Sleep apnea in adult G47.30 Active 57634837 Problem Moderately severe depression F32.2 Active 944181969 Problem Hypoglycemia associated with type 2 diabetes mellitus E11.649 Active 634374892 Problem PVD (peripheral vascular disease) I73.9 Active 759455530 Problem PAD (peripheral artery disease) I73.9 Active 527496343 Problem Hypoglycemia E16.2 Active 343742937 Problem Cerebrovascular accident (CVA), unspecified mechanism I63.9 Active 512506501 Problem Breast asymmetry N64.89 Active 984584096 Problem Abnormal mammogram of right breast R92.8 Active 580852768 Problem Diabetic neuropathy E11.40 Active 099244423 Problem Anxiety F41.9 Active 82800610 Problem Obstructive sleep apnea syndrome G47.33 Active 38303954 Problem Stage 2 chronic kidney disease N18.2 Active 509272662 Problem Essential hypertension I10 Active 41099714 Problem Type 2 diabetes mellitus with hyperglycemia E11.65 Active 927691468821948 Problem Cocaine abuse F14.10 Active 59755468 Problem Hyperlipidemia, unspecified E78.5 Active 09893944 ALLERGIES Substance Reaction Event Type Date Status Phenergan nausea Drug Allergy October, Active Penicillin V Potassium nausea Drug Allergy October, Active Codeine Sulfate itch Drug Allergy October, Active ENCOUNTERS Encounter Location Date Diagnosis [facility] [address] [facility] [id number] [place] [address] Dec, [facility] [address] [id number] [place] [address] [facility] [address] [id number] [place] [address] Nov [facility] [place] [address] [id number] [place] [address] Nov PVD (peripheral vascular disease) I73.9 ; Type 2 diabetes mellitus with hyperglycemia E11.65 and PAD (peripheral artery disease) I73.9 [facility] [place] [address] [id number] [place] [address] Nov [facility] [place] [address] [id number] [place] [address] Nov [facility] [place] [address] [id number] [place] [address] Nov [facility] [place] [address] [id number] [place] [address] October [facility] [place] [address] [id number] [place] [address] October [facility] [place] [address] [id number] [place] [address] October Type 2 diabetes mellitus with hyperglycemia E11.65 and Surgical procedure on lower extremity within past 6 months Z98.890 [facility] [place] [address] [id number] [place] [address] October [facility] [place] [address] [id number] [place] [address] October [facility] [address] [facility] [id number] [place] [address] October, [facility] [place] [address] [id number] [place] [address] October Sleep apnea in adult G47.30 [facility] [place] [address] [id number] [place] [address] October Type 2 diabetes mellitus with hyperglycemia E11.65 [facility] [place] [address] [id number] [place] [address] Sep [facility] [place] [address] [id number] [place] [address] Sep Breast asymmetry N64.89 [facility] [place] [address] [id number] [place] [address] Sep [facility] [place] [address] [id number] [place] [address] Sep Type 2 diabetes mellitus with hyperglycemia E11.65 ; Cocaine abuse F14.10 and Open wound of right great toe, subsequent encounter S91.101D [facility] [place] [address] [id number] [place] [address] Sep [facility] [place] [address] [id number] [place] [address] Aug [facility] [place] [address] [id number] [place] [address] Aug [facility] [place] [address] [id number] [place] [address] Aug Type 2 diabetes mellitus with hyperglycemia E11.65 [facility] [place] [address] [id number] [place] [address] Aug [facility] [address] [facility] [id number] [place] [address] Aug, [facility] [place] [address] [id number] [place] [address] Jul [facility] [place] [address] [id number] [place] [address] Jul Diabetic neuropathy E11.40 ; Essential hypertension I10 and Type 2 diabetes mellitus with hyperglycemia E11.65 [facility] [place] [address] [id number] [place] [address] Jul [facility] [place] [address] [id number] [place] [address] Jul [facility] [place] [address] [id number] [place] [address] Jul [facility] [place] [address] [id number] [place] [address] Jul [facility] [place] [address] [id number] [place] [address] Jul [facility] [place] [address] [id number] [place] [address] Jul Type 2 diabetes mellitus with hyperglycemia E11.65 ; Open wound of right great toe, subsequent encounter S91.101D ; Essential hypertension I10 and Diabetic neuropathy E11.40 [facility] [id number] [place] [address] Jul, [facility] [place] [address] [id number] [place] [address] Jun [facility] [place] [address] [id number] [place] [address] Jun Type 2 diabetes mellitus with hyperglycemia E11.65 [facility] [place] [address] [id number] [place] [address] Jun [facility] [place] [address] [id number] [place] [address] Jun [facility] [place] [address] [id number] [place] [address] Jun Abnormal mammogram of right breast R92.8 and Breast asymmetry N64.89 [facility] [place] [address] [id number] [place] [address] Jun [facility] [place] [address] [id number] [place] [address] Jun [facility] [place] [address] [id number] [place] [address] May Hypoglycemia E16.2 [facility] [place] [address] [id number] [place] [address] May Abnormal neurological exam R29.90 [facility] [place] [address] [id number] [place] [address] May [facility] [place] [address] [id number] [place] [address] May Type 2 diabetes mellitus with hyperglycemia E11.65 [facility] [place] [address] [id number] [place] [address] May Breast cancer screening Z12.31 and Hematuria, unspecified type R31.9 [facility] [place] [address] [id number] [place] [address] May [facility] [place] [address] [id number] [place] [address] May Type 2 diabetes mellitus with hyperglycemia E11.65 ; Essential hypertension I10 ; Moderately severe depression F32.2 and Confusion R41.0 [place] [address] [address] 13 May, 2017 [facility] [place] [address] [id number] [place] [address] May Cerebrovascular accident (CVA), unspecified mechanism I63.9 ; Essential hypertension I10 ; Hyperlipidemia, unspecified E78.5 and Type 2 diabetes mellitus with hyperglycemia E11.65 [place] [address] [address] May, [place] [address] [address] May, [facility] [address] [id number] [place] [address] May [facility] [place] [address] [id number] [place] [address] May Diabetic neuropathy E11.40 and Diabetes E11.9 [facility] [place] [address] [id number] [place] [address] Apr [facility] [place] [address] [id number] [place] [address] Apr Subacute maxillary sinusitis J01.00 ; Hypoglycemia associated with type 2 diabetes mellitus E11.649 and Intractable episodic headache, unspecified headache type R51 [facility] [place] [address] [id number] [place] [address] Apr Diabetic neuropathy E11.40 and Anxiety F41.9 [facility] [place] [address] [id number] [place] [address] Apr [facility] [place] [address] [id number] [place] [address] Apr Type 2 diabetes mellitus with hyperglycemia E11.65 ; Subacute maxillary sinusitis J01.00 ; Diabetic neuropathy E11.40 and Sleep apnea in adult G47.30 [place] [address] [facility] [id number] [place] [address] Apr, [facility] [place] [address] [id number] [place] [address] Apr [facility] [place] [address] [id number] [place] [address] [facility] [place] [address] [id number] [place] [address] Apr Subacute maxillary sinusitis J01.00 [place] [address] [facility] [id number] [place] [address] Apr, Right foot drop M21.371 [facility] [place] [address] [id number] [place] [address] Apr [facility] [place] [address] [id number] [place] [address] Mar [facility] [place] [address] [id number] [place] [address] Mar Essential hypertension I10 ; Type 2 diabetes mellitus with hyperglycemia E11.65 ; Encounter for immunization Z23 ; Cocaine abuse F14.10 and Hyperlipidemia, unspecified E78.5 [facility] [place] [address] [id number] [place] [address] Mar [place] [address] [facility] [id number] [place] [address] Mar, [facility] [place] [address] [id number] [place] [address] Feb [facility] [place] [address] [id number] [place] [address] Feb Type 2 diabetes mellitus with hyperglycemia E11.65 and Acute right ankle pain M25.571 [facility] [place] [address] [id number] [place] [address] Feb Weight loss R63.[address] An[address] [facility] [address]100[place] [address] Jan, [facility] [address] [address] Jan, [facility] [address] [place] [address] Jan, [facility] [address] [place] [address] Jan, Diabetes E11.9 [facility] [address] [id number] [place] [address] Jan Sprain of right ankle, unspecified ligament, initial encounter S93.401A [facility] [address] [id number] [place] [address] Jan Essential hypertension I10 ; Anxiety F41.9 and Type 2 diabetes mellitus with hyperglycemia E11.65 [facility] [address]100[place] [address] Jan, Diabetes E11.9 [facility] [address] [place] [address] Jan, [facility] [address] [address] [address] Jan, [facility] [address] [id number] [place] [address] [facility] [address] [address] Jan, [facility] [address] [place] [id number] [place] [address] Jan, [facility] [address] [address] Jan, [facility] [address] [place] [address] Jan, [facility] [address] [address] Jan, Unintentional weight loss R63.4 ; Stage 2 chronic kidney disease N18.2 ; Exposure to hepatitis C Z20.5 ; Diabetic neuropathy E11.40 ; Obstructive sleep apnea syndrome G47.33 ; Essential hypertension I10 and Type 2 diabetes mellitus with hyperglycemia E11.65 [facility] [address] [place] [address] [id number] [place] [address] Jan, [facility] [id number] [place] [address] Jan, Type 2 diabetes mellitus with hyperglycemia E11.65 ; Diabetic neuropathy E11.40 and Essential hypertension I10 [facility] [id number] [place] [address] Dec, Diabetes E11.9 [facility] [address] [id number] [place] [address] Dec, [facility] [id number] [place] [address] Dec, [facility] [address] [id number] [place] [address] Dec, [facility] [id number] [place] [address] Dec, Dental examination Z01.20 [facility] [address] [place] [address] [id number] [place] [address] Dec, [facility] [id number] [place] [address] Dec, Diabetes E11.9 [facility] [id number] [place] [address] Dec, Stage 2 chronic kidney disease N18.2 ; Exposure to hepatitis C Z20.5 ; Obstructive sleep apnea syndrome G47.33 and Type 2 diabetes mellitus with hyperglycemia E11.65 [facility] [address] [id number] [address] Dec, [facility] [place] [address] [id number] [place] [address] Dec Diabetes E11.9 and Essential hypertension I10 [facility] [address] [place] [id number] [address] Nov, Diabetes E11.9 [facility] [address] [place] [address] [id number] [address] Nov, Right foot pain M79.671 [facility] [address] [id number] [place] [address] Nov, Right foot pain M79.671 [facility] [place] [address] [id number] [place] [address] Nov Diabetes E11.9 [facility] [place] [address] [id number] [place] [address] Nov Diabetes E11.9 [facility] [address] [place] [address] [id number] [address] Nov, Dental examination Z01.20 [facility] [place] [address] [id number] [place] [address] Nov Diabetes E11.9 ; Cocaine abuse F14.10 and Shingles (herpes zoster) polyneuropathy B02.23 [facility] [place] [address] [id number] [place] [address] Nov [place] [address] [facility] [id number] [place] [address] October, [facility] [place] [address] [id number] [place] [address] October [facility] [place] [address] [id number] [place] [address] October Unintentional weight loss R63.4 [facility] [place] [address] [id number] [place] [address] October Abscess L02.91 [facility] [place] [address] [id number] [place] [address] October Diabetes E11.9 ; Unintentional weight loss R63.4 ; History of hematuria Z87.448 and Cocaine abuse F14.10 [facility] [place] [address] [id number] [place] [address] October Diabetes E11.9 [facility] [place] [address] [id number] [place] [address] October Essential hypertension I10 and Abscess L02.91 [facility] [place] [address] [id number] [place] [address] Jun [facility] [place] [address] [id number] [place] [address] May Breast cancer screening Z12.39 ; Diabetes E11.9 and Anxiety F41.9 [facility] [place] [address] [facility] [id number] [place] [address] 16 May, 2016 Diabetes E11.9 [facility] [place] [address] [id number] [place] [address] 15 May Diabetes E11.9 and Anemia D64.9 [facility] [place] [address] [id number] [place] [address] 14 May Anxiety F41.9 [facility] [place] [address] [id number] [place] [address] 08 May [facility] [place] [address] [id number] [place] [address] 06 May Dysuria R30.0 [facility] [place] [address] [id number] [place] [address] 06 May [facility] [place] [address] [id number] [place] [address] 05 May Dysuria R30.0 and Vaginal itching L29.8 [facility] [address] [facility] [id number] [place] [address] 18 Apr, 2016 [facility] [place] [address] [id number] [place] [address] Apr Diabetes E11.9 ; Dysuria R30.0 ; Diabetic neuropathy E11.40 ; Anemia D64.9 and Vaginal discharge N89.8 [facility] [address] [place] [id number] [place] [address] Jun, [place] [id number] [place] [id number] Jun, Anemia D64.9 ; Anxiety F41.9 ; Diabetes E11.9 and Diabetic neuropathy E11.[address] [id number] May, [facility] [address] [address] Apr, [address] [id number] Apr, Anemia D64.9 ; Anxiety F41.9 ; Diabetes E11.9 and Diabetic neuropathy E11.[address] [id number] Mar, Acute costochondritis M94.[address] [id number] Mar, Bilateral low back pain without sciatica M54.5 and Bereavement Z63.[address] [id number] Mar, Obstructive chronic bronchitis with acute exacerbation J44.1 ; Herpes zoster without complication B02.9 and [place] N91.2 [place] [id number] [place] [id number] Mar, [address] [id number] Mar, [place] [id number] [place] [id number] 24 Feb, 2015 History of recent traumatic injury of head V15.52 ; Diabetes type 2, uncontrolled 250.02 and Visual disturbance 368.9 [facility] [address] [facility] [id number] [place] [id number] Feb, History of recent traumatic injury of head V15.52 ; Visual disturbance 368.9 and Diabetes type 2, uncontrolled 250.02 IMMUNIZATIONS No Known Immunizations SOCIAL HISTORY Never Assessed REASON FOR VISIT Diabetes/pain, A1C. 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 PLAN OF CARE Activity Details Follow Up 4 Weeks Reason:f/u dm mgmt VITAL SIGNS Height 63.50 in 2017-10-31 Weight 117.3 lbs 2017-10-31 Temperature 98.4 degrees Fahrenheit 2017-10-31 Heart Rate 98 bpm 2017-10-31 Respiratory Rate 20 2017-10-31 Oximetry 98 % 2017-10-31 BMI 20.45 kg/m2 2017-10-31 Blood pressure systolic 138 mmHg 2017-10-31 Blood pressure diastolic 70 mmHg 2017-10-31 MEDICATIONS Medication Instructions Dosage Frequency Start Date End Date Duration Status Bydureon BCise 2 MG/0.85ML Subcutaneous once weekly as directed October, Nov, 28 days Active Amlodipine Besylate 10 mg Orally Once a day 1 tablet 24h May, 30 days Active Atorvastatin Calcium 40 MG Orally Once a day 1 tablet 24h May, Active Glucocard Expression Test - subcutaneously 2 times a day as directed 12Nov, 30 days Active Bydureon BCise 2 MG/0.85ML Subcutaneous once weekly as directed October, October, 90 days Active Metformin HCl 850 MG Orally Once a day 1 tablet with meals 24h 30 Active Plavix 75 MG Orally Once a day 1 tablet 24h Active Ropinirole HCl 1 MG Orally at bedtime 1 tablet 1 to 3 hours before bedtime 30 days Active Gabapentin 300 MG Orally Once a day 1 capsule before bedtime 24h Active Acetaminophen 325 MG Orally every 4 hrs 1 tablet as needed 4h Active Aspirin 81 MG Orally Once a day 1 tablet 24h 30 Active Aspirin 81 MG Orally Once a day 1 tablet 24h May, Active Pantoprazole Sodium 40 MG Orally Once a day 1 tablet 24h Active HydrOXYzine HCl 25 MG Orally 2 times a day as needed for anxieyt 1 tablet as needed Feb, 30 day(s) Active RESULTS Name Result Date Reference Range A1C (IN HOUSE) 2017-10-31 A1C IN HOUSE 11.1 4.3 - 5.6 % Previous A1c 7.0 [facility] 0856 Exp date 08/2019 PROCEDURES Procedure Date Ordered Result Body Site GLYCATED HEMOGLOBIN TEST October 31, 2017 INSTRUCTIONS MEDICATIONS ADMINISTERED No Known Medications [...] infection 2004 Hospitalization History in rehab at [facility] [place] 2016 Hospitalization History Stroke 05/2017 Hospitalization History surgeries Hospitalization History Elevated B/S 07/2017 Hospitalization History [facility] - blood clot LRE 10/2017 Hospitalization History [facility] - R ankle clot 11/2017
--- OUTSIDE RECORDS SUMMARY | 2018-05-13 10:44 | XMS REPORT ---
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 Phone CHRIS BECKWITH Unavailable PROBLEMS Type Condition ICD9-CM Code OQG20-QB Code Onset Dates Condition Status SNOMED Code Problem Sleep apnea in adult G47.30 Active 09228405 Problem Moderately severe depression F32.2 Active 685826617 Problem Hypoglycemia associated with type 2 diabetes mellitus E11.649 Active 922272038 Problem PVD (peripheral vascular disease) I73.9 Active 929884293 Problem PAD (peripheral artery disease) I73.9 Active 912703122 Problem Hypoglycemia E16.2 Active 047059726 Problem Cerebrovascular accident (CVA), unspecified mechanism I63.9 Active 859324339 Problem Breast asymmetry N64.89 Active 953725621 Problem Abnormal mammogram of right breast R92.8 Active 347651389 Problem Diabetic neuropathy E11.40 Active 492951746 Problem Anxiety F41.9 Active 84278633 Problem Obstructive sleep apnea syndrome G47.33 Active 94673094 Problem Stage 2 chronic kidney disease N18.2 Active 158288158 Problem Essential hypertension I10 Active 92463094 Problem Type 2 diabetes mellitus with hyperglycemia E11.65 Active 302448219310413 Problem Cocaine abuse F14.10 Active 55369797 Problem Hyperlipidemia, unspecified E78.5 Active 72506402 ALLERGIES No Information ENCOUNTERS Encounter Location Date Diagnosis [facility] [address] [facility] [id number] [place] [address] Dec, [facility] [place] [address] [id number] [place] [address] Nov [facility] [address] [id number] [place] [address] Nov [facility] [place] [address] [id number] [place] [address] Nov PVD (peripheral vascular disease) I73.9 ; Type 2 diabetes mellitus with hyperglycemia E11.65 and PAD (peripheral artery disease) I73.9 [facility] [place] [address] [id number] [place] [address] Nov [facility] [place] [address] [id number] [place] [address] Nov [facility] [place] [address] [id number] [place] [address] Nov [facility] [place] [address] [id number] [place] [address] October [facility] [place] [address] [id number] [place] [address] October [facility] [place] [address] [id number] [place] [address] October Type 2 diabetes mellitus with hyperglycemia E11.65 and Surgical procedure on lower extremity within past 6 months Z98.890 [facility] [place] [address] [id number] [place] [address] October [facility] [place] [address] [id number] [place] [address] October [facility] [address] [facility] [id number] [place] [address] October, [facility] [place] [address] [id number] [place] [address] October Sleep apnea in adult G47.30 [facility] [place] [address] [id number] [place] [address] October Type 2 diabetes mellitus with hyperglycemia E11.65 [facility] [place] [address] [id number] [place] [address] Sep [facility] [place] [address] [id number] [place] [address] Sep Breast asymmetry N64.89 [facility] [place] [address] [id number] [place] [address] Sep [facility] [place] [address] [id number] [place] [address] Sep Type 2 diabetes mellitus with hyperglycemia E11.65 ; Cocaine abuse F14.10 and Open wound of right great toe, subsequent encounter S91.101D [facility] [place] [address] [id number] [place] [address] Sep [facility] [place] [address] [id number] [place] [address] Aug [facility] [place] [address] [id number] [place] [address] Aug [facility] [place] [address] [id number] [place] [address] Aug Type 2 diabetes mellitus with hyperglycemia E11.65 [facility] [place] [address] [id number] [place] [address] Aug [facility] [address] [facility] [id number] [place] [address] Aug, [facility] [place] [address] [id number] [place] [address] Jul [facility] [place] [address] [id number] [place] [address] Jul Diabetic neuropathy E11.40 ; Essential hypertension I10 and Type 2 diabetes mellitus with hyperglycemia E11.65 [facility] [place] [address] [id number] [place] [address] Jul [facility] [place] [address] [id number] [place] [address] Jul [facility] [place] [address] [id number] [place] [address] Jul [facility] [place] [address] [id number] [place] [address] Jul [facility] [place] [address] [id number] [place] [address] Jul [facility] [place] [address] [id number] [place] [address] Jul Type 2 diabetes mellitus with hyperglycemia E11.65 ; Open wound of right great toe, subsequent encounter S91.101D ; Essential hypertension I10 and Diabetic neuropathy E11.[address] [facility] [address] [id number] [place] [address] Jul, [facility] [place] [address] [id number] [place] [address] Jun [facility] [place] [address] [id number] [place] [address] Jun Type 2 diabetes mellitus with hyperglycemia E11.65 [facility] [place] [address] [id number] [place] [address] Jun [facility] [place] [address] [id number] [place] [address] Jun [facility] [place] [address] [id number] [place] [address] Jun Abnormal mammogram of right breast R92.8 and Breast asymmetry N64.89 [facility] [place] [address] [id number] [place] [address] Jun [facility] [place] [address] [id number] [place] [address] Jun [facility] [place] [address] [id number] [place] [address] May Hypoglycemia E16.2 [facility] [place] [address] [id number] [place] [address] May Abnormal neurological exam R29.90 [facility] [place] [address] [id number] [place] [address] May [facility] [place] [address] [id number] [place] [address] May Type 2 diabetes mellitus with hyperglycemia E11.65 [facility] [place] [address] [id number] [place] [address] May Breast cancer screening Z12.31 and Hematuria, unspecified type R31.9 [facility] [place] [address] [id number] [place] [address] May [facility]ENTERFuture [facility] Medical Holding CompanyONS [address] [id number] [place] [address] May Type 2 diabetes mellitus with hyperglycemia E11.65 ; Essential hypertension I10 ; Moderately severe depression F32.2 and Confusion R41.0 [place] [address] [id number] [place] [address] May, [facility] Medical[facility] [address] [id number] [place] [address] May Cerebrovascular accident (CVA), unspecified mechanism I63.9 ; Essential hypertension I10 ; Hyperlipidemia, unspecified E78.5 and Type 2 diabetes mellitus with hyperglycemia E11.65 [place] [address], [place] [address] May, [place] [address] [id number], [place] [address] May, [facility]ITAL[facility] MedicalCON[facility] [address] [id number] [place] [address] May [facility]ITAL[facility] Medical[facility] [address] [id number] [place] [address] May Diabetic neuropathy E11.40 and Diabetes E11.9 [facility]ENT[facility] [place] [address] [id number] [place] [address] Apr [facility]ENTERFuture [facility] Medical Holding CompanyONS [address] [id number] [place] [address] Apr Subacute maxillary sinusitis J01.00 ; Hypoglycemia associated with type 2 diabetes mellitus E11.649 and Intractable episodic headache, unspecified headache type R51 [facility] [place] [address] [id number] [place] [address] Apr Diabetic neuropathy E11.40 and Anxiety F41.9 [facility] [place] [address] [id number] [place] [address] Apr [facility] [place] [address] [id number] [place] [address] Apr Type 2 diabetes mellitus with hyperglycemia E11.65 ; Subacute maxillary sinusitis J01.00 ; Diabetic neuropathy E11.40 and Sleep apnea in adult G47.30 [place] [address] [id number] [place] [address] Apr, [facility] [place] [address] [id number] [place] [address] Apr [facility] [place] [address] [id number] [place] [address] Apr [facility] [place] [address] [id number] [place] [address] Apr Subacute maxillary sinusitis J01.00 [place] [address], [place] [address] Apr, Right foot drop M21.371 [facility] [place] [address] [id number] [place] [address] Apr [facility] [place] [address] [id number] [place] [address] Mar [facility] [place] [address] [id number] [place] [address] Mar Essential hypertension I10 ; Type 2 diabetes mellitus with hyperglycemia E11.65 ; Encounter for immunization Z23 ; Cocaine abuse F14.10 and Hyperlipidemia, unspecified E78.5 [facility] [place] [address] [id number] [place] [address] Mar [place] [address] [id number], [place] [address] Mar, [facility] [place] [address] [id number] [place] [address] Feb [facility] [place] [address] [id number] [place] [address] Feb Type 2 diabetes mellitus with hyperglycemia E11.65 and Acute right ankle pain M25.571 [facility] [place] [address] [id number] [place] [address] Feb Weight loss R63.4 and Anxiety F41.9 [place] [address] [id number], [place] [address] Jan, [facility] [address], [place] [address] Jan, [facility] [address], [place] [address] Jan, [facility] [address], [place] [address] Jan, Diabetes E11.9 [facility] [address] [id number] [place] [address] Jan Sprain of right ankle, unspecified ligament, initial encounter S93.401A [facility] [place] [address] [id number] [place] [address] Jan Essential hypertension I10 ; Anxiety F41.9 and Type 2 diabetes mellitus with hyperglycemia E11.65 [facility] [address], [place] [address] Jan, Diabetes E11.9 [facility] [address], [place] [address] Jan, [facility] [address] [place] [address] Jan, [facility] [place] [address] [id number] [place] [address] Jan [facility] [address], [place] [address] Jan, [facility] [address], [place] [address] Jan, [facility] [address], [place] [address] Jan, [facility] [address], [place] [address] Jan, [facility] [address], [place] [address] Jan, Unintentional weight loss R63.4 ; Stage 2 chronic kidney disease N18.2 ; Exposure to hepatitis C Z20.5 ; Diabetic neuropathy E11.40 ; Obstructive sleep apnea syndrome G47.33 ; Essential hypertension I10 and Type 2 diabetes mellitus with hyperglycemia E11.65 [facility] [address], [place] [address] Jan, [facility] [id number] [place] [address] Jan, Type 2 diabetes mellitus with hyperglycemia E11.65 ; Diabetic neuropathy E11.40 and Essential hypertension I10 [facility] [address] [place] [address] Dec, Diabetes E11.9 [facility] [address] [place] [address] Dec, [facility] [id number] [place] [address] Dec, [facility] [address] [place] [address] Dec, [facility] [id number] [place] [address] Dec, Dental examination Z01.20 [facility] [address] [place] [address] Dec, [facility] [address] [place] [address] Dec, Diabetes E11.9 [facility] [address], [place] [address] Dec, Stage 2 chronic kidney disease N18.2 ; Exposure to hepatitis C Z20.5 ; Obstructive sleep apnea syndrome G47.33 and Type 2 diabetes mellitus with hyperglycemia E11.65 [facility] [address], [place] [address] Dec, [facility] [place] [address] [id number] [place] [address] Dec Diabetes E11.9 and Essential hypertension I10 [facility] [address] [facility] [id number] [place] [address] Nov, Diabetes E11.9 [facility] [address] [id number] [address] Nov, Right foot pain M79.671 [facility] [address] [id number] [id number] Nov, Right foot pain M79.671 [facility] [place] [address] [id number] [place] [address] Nov Diabetes E11.9 [facility] [place] [address] [id number] [place] [address] Nov Diabetes E11.9 [facility] [address] [id number] [place] [address] Nov, Dental examination Z01.20 [facility] [place] [address] [id number] [place] [address] Nov Diabetes E11.9 ; Cocaine abuse F14.10 and Shingles (herpes zoster) polyneuropathy B02.23 [facility] [place] [address] [id number] [place] [address] Nov [facility] [address] [facility] [id number] [place] [address] October, [facility] [place] [address] [id number] [place] [address] October [facility] [place] [address] [id number] [place] [address] October Unintentional weight loss R63.4 [facility] [place] [address] [id number] [place] [address] October Abscess L02.91 [facility] [place] [address] [id number] [place] [address] October Diabetes E11.9 ; Unintentional weight loss R63.4 ; History of hematuria Z87.448 and Cocaine abuse F14.10 [facility] [place] [address] [id number] [place] [address] October Diabetes E11.9 [facility] [place] [address] [id number] [place] [address] October Essential hypertension I10 and Abscess L02.91 [facility] [place] [address] [id number] [place] [address] Jun [facility] [place] [address] [id number] [place] [address] May Breast cancer screening Z12.39 ; Diabetes E11.9 and Anxiety F41.9 [facility] [place] [address] [facility] [id number] [place] [address] May, Diabetes E11.9 [facility] [place] [address] [id number] [place] [address] May Diabetes E11.9 and Anemia D64.9 [facility] [place] [address] [id number] [place] [address] May Anxiety F41.9 [facility] [place] [address] [id number] [place] [address] 08 May [facility] [place] [address] [id number] [place] [address] May Dysuria R30.0 [facility] [place] [address] [id number] [place] [address] May [facility] [place] [address] [id number] [place] [address] 05 May Dysuria R30.0 and Vaginal itching L29.8 [facility] [address] [facility] [id number] [place] [address] Apr, [facility] [place] [address] [id number] [place] [address] 14 Apr Diabetes E11.9 ; Dysuria R30.0 ; Diabetic neuropathy E11.40 ; Anemia D64.9 and Vaginal discharge N89.8 [facility] [address] [id number], [place] [address] Jun, [address]00565100[place] [address] Jun, Anemia D64.9 ; Anxiety F41.9 ; Diabetes E11.9 and Diabetic neuropathy E11.[address]00565100[place] [id number] May, [facility] [address] 4457365100[place], [place] [address] Apr, [place] [address] [place] [id number] Apr, Anemia D64.9 ; Anxiety F41.9 ; Diabetes E11.9 and Diabetic neuropathy E11.40 [place] [address] [place] [id number] Mar, Acute costochondritis M94.0 [place] [address] [place] [id number] Mar, Bilateral low back pain without sciatica M54.5 and Bereavement Z63.4 [place] [address] [place] [id number] Mar, Obstructive chronic bronchitis with acute exacerbation J44.1 ; Herpes zoster without complication B02.9 and [place] N91.2 [place] [address] [place] [id number] Mar, [place] [address] [place] [id number] Mar, [place] [address] [place] [id number] Feb, History of recent traumatic injury of head V15.52 ; Diabetes type 2, uncontrolled 250.02 and Visual disturbance 368.9 [place] [address] [place] [id number] Feb, History of recent traumatic injury of head V15.52 ; Visual disturbance 368.9 and Diabetes type 2, uncontrolled 250.02 IMMUNIZATIONS Vaccine Route Administration Date Status BYDUREON (PT'S OWN) SC Subcutaneous November 07, 2017 Administered SOCIAL HISTORY Never Assessed REASON FOR VISIT Injection.Pt education. amadeo,TERRANCE PLAN OF CARE VITAL SIGNS MEDICATIONS Unknown Medications RESULTS No Results PROCEDURES Procedure Date Ordered Result Body Site No Charge November 07, 2017 THER/PROPH/DIAG INJ, SC/IM November 07, 2017 INSTRUCTIONS MEDICATIONS ADMINISTERED No Known Medications [...] infection 2004 Hospitalization History [facility] 2016 Hospitalization History Stroke 05/2017 Hospitalization History surgeries Hospitalization History Elevated B/S 07/2017 Hospitalization History [facility] - blood clot LRE 10/2017 Hospitalization History [facility] - R ankle clot 11/2017
--- OUTSIDE RECORDS SUMMARY | 2018-05-13 10:44 | XMS REPORT ---
Author Author CHRIS BECKWITH [facility] Address [address] [place] [address] Care Team Providers Care Veneer Sorter Name Role Phone CHRIS BECKWITH Unavailable PROBLEMS Type Condition ICD9-CM Code HDJ11-GD Code Onset Dates Condition Status SNOMED Code Problem Sleep apnea in adult G47.30 Active 07061772 Problem Moderately severe depression F32.2 Active 836168772 Problem Hypoglycemia associated with type 2 diabetes mellitus E11.649 Active 291348590 Problem PVD (peripheral vascular disease) I73.9 Active 324612054 Problem PAD (peripheral artery disease) I73.9 Active 071385812 Problem Hypoglycemia E16.2 Active 414039608 Problem Cerebrovascular accident (CVA), unspecified mechanism I63.9 Active 220327391 Problem Breast asymmetry N64.89 Active 443341742 Problem Abnormal mammogram of right breast R92.8 Active 840034290 Problem Diabetic neuropathy E11.40 Active 071549746 Problem Anxiety F41.9 Active 88451481 Problem Obstructive sleep apnea syndrome G47.33 Active 24866145 Problem Stage 2 chronic kidney disease N18.2 Active 936785734 Problem Essential hypertension I10 Active 09170166 Problem Type 2 diabetes mellitus with hyperglycemia E11.65 Active 485731069201635 Problem Cocaine abuse F14.10 Active 64256733 Problem Hyperlipidemia, unspecified E78.5 Active 19935637 ALLERGIES No Information ENCOUNTERS Encounter Location Date Diagnosis [facility] [address] [facility] [id number] [place] [address] Dec, [facility] [place] [address] [id number] [place] [address] Nov [facility] [address] [id number] [place] [address] Nov [facility] [place] [address] [id number] [place] [address] Nov PVD (peripheral vascular disease) I73.9 ; Type 2 diabetes mellitus with hyperglycemia E11.65 and PAD (peripheral artery disease) I73.9 [facility] [place] [address] [id number] [place] [address] Nov [facility] [place] [address] [id number] [place] [address] Nov [facility] [place] [address] [id number] [place] [address] Nov [facility] [place] [address] [id number] [place] [address] October [facility] [place] [address] [id number] [place] [address] October [facility] [place] [address] [id number] [place] [address] October Type 2 diabetes mellitus with hyperglycemia E11.65 and Surgical procedure on lower extremity within past 6 months Z98.890 [facility] [place] [address] [id number] [place] [address] October [facility] [place] [address] [id number] [place] [address] October [facility] [address] [facility] [id number] [place] [address] October, [facility] [place] [address] [id number] [place] [address] October Sleep apnea in adult G47.30 [facility] [place] [address] [id number] [place] [address] October Type 2 diabetes mellitus with hyperglycemia E11.65 [facility] [place] [address] [id number] [place] [address] Sep [facility] [place] [address] [id number] [place] [address] Sep Breast asymmetry N64.89 [facility] [place] [address] [id number] [place] [address] Sep [facility] [place] [address] [id number] [place] [address] Sep Type 2 diabetes mellitus with hyperglycemia E11.65 ; Cocaine abuse F14.10 and Open wound of right great toe, subsequent encounter S91.101D [facility] [place] [address] [id number] [place] [address] Sep [facility] [place] [address] [id number] [place] [address] Aug [facility] [place] [address] [id number] [place] [address] Aug [facility] [place] [address] [id number] [place] [address] Aug Type 2 diabetes mellitus with hyperglycemia E11.65 [facility] [place] [address] [id number] [place] [address] Aug [facility] [address] [facility] [id number] [place] [address] Aug, [facility] [place] [address] [id number] [place] [address] Jul [facility] [place] [address] [id number] [place] [address] Jul Diabetic neuropathy E11.40 ; Essential hypertension I10 and Type 2 diabetes mellitus with hyperglycemia E11.65 [facility] [place] [address] [id number] [place] [address] Jul [facility] [place] [address] [id number] [place] [address] Jul [facility] [place] [address] [id number] [place] [address] Jul [facility] [place] [address] [id number] [place] [address] Jul [facility] [place] [address] [id number] [place] [address] Jul [facility] [place] [address] [id number] [place] [address] Jul Type 2 diabetes mellitus with hyperglycemia E11.65 ; Open wound of right great toe, subsequent encounter S91.101D ; Essential hypertension I10 and Diabetic neuropathy E11.[address] [facility] [address] [id number] [place] [address] Jul, [facility] [place] [address] [id number] [place] [address] Jun [facility] [place] [address] [id number] [place] [address] Jun Type 2 diabetes mellitus with hyperglycemia E11.65 [facility] [place] [address] [id number] [place] [address] Jun [facility] [place] [address] [id number] [place] [address] Jun [facility] [place] [address] [id number] [place] [address] Jun Abnormal mammogram of right breast R92.8 and Breast asymmetry N64.89 [facility] [place] [address] [id number] [place] [address] Jun [facility] [place] [address] [id number] [place] [address] Jun [facility] [place] [address] [id number] [place] [address] May Hypoglycemia E16.2 [facility] [place] [address] [id number] [place] [address] May Abnormal neurological exam R29.90 [facility] [place] [address] [id number] [place] [address] May [facility] [place] [address] [id number] [place] [address] May Type 2 diabetes mellitus with hyperglycemia E11.65 [facility] [place] [address] [id number] [place] [address] May Breast cancer screening Z12.31 and Hematuria, unspecified type R31.9 [facility] [place] [address] [id number] [place] [address] May [facility] [address] [id number] [place] [address] May Type 2 diabetes mellitus with hyperglycemia E11.65 ; Essential hypertension I10 ; Moderately severe depression F32.2 and Confusion R41.0 [place] [address] [id number] [address] May, [facility] Boat[facility] [address] [id number] [place] [address] May Cerebrovascular accident (CVA), unspecified mechanism I63.9 ; Essential hypertension I10 ; Hyperlipidemia, unspecified E78.5 and Type 2 diabetes mellitus with hyperglycemia E11.65 [place] [address]005[address] [address] May, [place] [address] [id number] [address] May, [facility] [address] [id number] [place] [address] May [facility] [address] [id number] [place] [address] May Diabetic neuropathy E11.40 and Diabetes E11.9 [facility] [place] [address] [id number] [place] [address] Apr [facility] [address] [id number] [place] [address] Apr Subacute maxillary sinusitis J01.00 ; Hypoglycemia associated with type 2 diabetes mellitus E11.649 and Intractable episodic headache, unspecified headache type R51 [facility] [place] [address] [id number] [place] [address] Apr Diabetic neuropathy E11.40 and Anxiety F41.9 [facility] [place] [address] [id number] [place] [address] Apr [facility] [place] [address] [id number] [place] [address] Apr Type 2 diabetes mellitus with hyperglycemia E11.65 ; Subacute maxillary sinusitis J01.00 ; Diabetic neuropathy E11.40 and Sleep apnea in adult G47.30 [place] [address] [id number] [address] Apr, [facility] [place] [address] [id number] [place] [address] Apr [facility] [place] [address] [id number] [place] [address] Apr [facility] [place] [address] [id number] [place] [address] Apr Subacute maxillary sinusitis J01.00 [place] [address]00565[address] [address] Apr, Right foot drop M21.371 [facility] [place] [address] [id number] [place] [address] Apr [facility] [place] [address] [id number] [place] [address] Mar [facility] [place] [address] [id number] [place] [address] Mar Essential hypertension I10 ; Type 2 diabetes mellitus with hyperglycemia E11.65 ; Encounter for immunization Z23 ; Cocaine abuse F14.10 and Hyperlipidemia, unspecified E78.5 [facility] [place] [address] [id number] [place] [address] Mar [place] [address] [id number] [address] Mar, [facility] [place] [address] [id number] [place] [address] Feb [facility] [place] [address] [id number] [place] [address] Feb Type 2 diabetes mellitus with hyperglycemia E11.65 and Acute right ankle pain M25.571 [facility] [place] [address] [id number] [place] [address] Feb Weight loss R63.4 and Anxiety F41.9 [place] [address] [id number] [address] Jan, [facility] [address]00565[address] [address] Jan, [facility] [address]00565[address] [address] Jan, [facility] [address]00565[address] [address] Jan, Diabetes E11.9 [facility] MAN [address] [id number] [place] [address] Jan Sprain of right ankle, unspecified ligament, initial encounter S93.401A [facility] [place] [address] [id number] [place] [address] Jan Essential hypertension I10 ; Anxiety F41.9 and Type 2 diabetes mellitus with hyperglycemia E11.65 [facility] [address]00565[address] [address] Jan, Diabetes E11.9 [facility] [address]00565100[place] [address] Jan, [facility] [address] [place] [address] Jan, [facility] [place] [address] [id number] [place] [address] Jan [facility] [address]00565100[place] [address] Jan, [facility] [address]00565100[place] [address] Jan, [facility] [address]00565[address] [address] Jan, [facility] [address]00565100[place] [address] Jan, [facility] [address]00565100[place] [address] Jan, Unintentional weight loss R63.4 ; Stage 2 chronic kidney disease N18.2 ; Exposure to hepatitis C Z20.5 ; Diabetic neuropathy E11.40 ; Obstructive sleep apnea syndrome G47.33 ; Essential hypertension I10 and Type 2 diabetes mellitus with hyperglycemia E11.65 [facility] [address]00565[address] [address] Jan, [facility] [id number] [place] [address] Jan, Type 2 diabetes mellitus with hyperglycemia E11.65 ; Diabetic neuropathy E11.40 and Essential hypertension I10 [facility] [address] [place] [address] Dec, Diabetes E11.9 [facility] [address] [place] [address] Dec, [facility] [id number] [place] [address] Dec, [facility] [address] [place] [address] Dec, [facility] [id number] [place] [address] Dec, Dental examination Z01.20 [facility] [address] [place] [address] Dec, [facility] [address] [place] [address] Dec, Diabetes E11.9 [facility] [address]00565100[place] [address] Dec, Stage 2 chronic kidney disease N18.2 ; Exposure to hepatitis C Z20.5 ; Obstructive sleep apnea syndrome G47.33 and Type 2 diabetes mellitus with hyperglycemia E11.65 [facility] [address]00565100[place] [address] Dec, [facility] [place] [address] [id number] [place] [address] Dec Diabetes E11.9 and Essential hypertension I10 [facility] [address] [facility] [id number] [place] [address] Nov, Diabetes E11.9 [facility] [address] [id number] [address] Nov, Right foot pain M79.671 [facility] [address] [id number] [address] Nov, Right foot pain M79.671 [facility] [place] [address] [id number] [place] [address] Nov Diabetes E11.9 [facility] [place] [address] [id number] [place] [address] Nov Diabetes E11.9 [facility] [address] [id number] [address] Nov, Dental examination Z01.20 [facility] [place] [address] [id number] [place] [address] Nov Diabetes E11.9 ; Cocaine abuse F14.10 and Shingles (herpes zoster) polyneuropathy B02.23 [facility] [place] [address] [id number] [place] [address] Nov [facility] [address] [facility] [id number] [place] [address] October, [facility] [place] [address] [id number] [place] [address] October [facility] [place] [address] [id number] [place] [address] October Unintentional weight loss R63.4 [facility] [place] [address] [id number] [place] [address] October Abscess L02.91 [facility] [place] [address] [id number] [place] [address] October Diabetes E11.9 ; Unintentional weight loss R63.4 ; History of hematuria Z87.448 and Cocaine abuse F14.10 [facility] [place] [address] [id number] [place] [address] October Diabetes E11.9 [facility] [place] [address] [id number] [place] [address] October Essential hypertension I10 and Abscess L02.91 [facility] [place] [address] [id number] [place] [address] Jun [facility] [place] [address] [id number] [place] [address] May Breast cancer screening Z12.39 ; Diabetes E11.9 and Anxiety F41.9 [facility] [place] [address] [facility] [id number] [place] [id number] May, Diabetes E11.9 [facility] [place] [address] [id number] [place] [address] May Diabetes E11.9 and Anemia D64.9 [facility] [place] [address] [id number] [place] [address] May Anxiety F41.9 [facility] [place] [address] [id number] [place] [address] 08 May [facility] [place] [address] [id number] [place] [address] May Dysuria R30.0 [facility] [place] [address] [id number] [place] [address] May [facility] [place] [address] [id number] [place] [address] 05 May Dysuria R30.0 and Vaginal itching L29.8 [facility] [address] [facility] [id number] [place] [address] Apr, [facility] [place] [address] [id number] [place] [address] 14 Apr Diabetes E11.9 ; Dysuria R30.0 ; Diabetic neuropathy E11.40 ; Anemia D64.9 and Vaginal discharge N89.8 [facility] [address] [id number] [address] Jun, [address]65100[place] [id number] Jun, Anemia D64.9 ; Anxiety F41.9 ; Diabetes E11.9 and Diabetic neuropathy E11.40 [address]00565100[place] [address] May, [facility] [address] 9356365100[place] [address] Apr, [place] [id number] [place] [id number] Apr, Anemia D64.9 ; Anxiety F41.9 ; Diabetes E11.9 and Diabetic neuropathy E11.40 [place] [id number] [place] [id number] Mar, Acute costochondritis M94.0 [place] [id number] [place] [id number] Mar, Bilateral low back pain without sciatica M54.5 and Bereavement Z63.4 [place] [id number] [place] [id number] Mar, Obstructive chronic bronchitis with acute exacerbation J44.1 ; Herpes zoster without complication B02.9 and [place] N91.2 [place] [address] [place] [id number] Mar, [place] [address] [place] [id number] Mar, [place] [address] [place] [id number] Feb, History of recent traumatic injury of head V15.52 ; Diabetes type 2, uncontrolled 250.02 and Visual disturbance 368.9 [address] [place] [address] [place] [id number] Feb, History of recent traumatic injury of head V15.52 ; Visual disturbance 368.9 and Diabetes type 2, uncontrolled 250.02 IMMUNIZATIONS No Known Immunizations SOCIAL HISTORY Never Assessed REASON FOR VISIT Medication refill request PLAN OF CARE VITAL SIGNS MEDICATIONS Unknown [...] infection 2004 Hospitalization History in rehab at [facility] 2016 Hospitalization History Stroke 05/2017 Hospitalization History surgeries Hospitalization History Elevated B/S 07/2017 Hospitalization History [facility] - blood clot LRE 10/2017 Hospitalization History [facility] - R ankle clot 11/2017
--- OUTSIDE RECORDS SUMMARY | 2018-05-13 10:45 | XMS REPORT ---
Author Author CHRIS BECKWITH [facility] Address [address] [place] [address] Care Team Providers Care Associate Engineer Name Role Phone CHRIS BECKWITH Unavailable PROBLEMS Type Condition ICD9-CM Code VWW98-HW Code Onset Dates Condition Status SNOMED Code Problem Sleep apnea in adult G47.30 Active 29389770 Problem Moderately severe depression F32.2 Active 560326166 Problem Hypoglycemia associated with type 2 diabetes mellitus E11.649 Active 296468000 Problem PVD (peripheral vascular disease) I73.9 Active 665652174 Problem PAD (peripheral artery disease) I73.9 Active 508759873 Problem Hypoglycemia E16.2 Active 476000696 Problem Cerebrovascular accident (CVA), unspecified mechanism I63.9 Active 738499140 Problem Breast asymmetry N64.89 Active 900877486 Problem Abnormal mammogram of right breast R92.8 Active 869133128 Problem Diabetic neuropathy E11.40 Active 025691157 Problem Anxiety F41.9 Active 88838923 Problem Obstructive sleep apnea syndrome G47.33 Active 39599141 Problem Stage 2 chronic kidney disease N18.2 Active 281626008 Problem Essential hypertension I10 Active 97625609 Problem Type 2 diabetes mellitus with hyperglycemia E11.65 Active 920279302699182 Problem Cocaine abuse F14.10 Active 64853141 Problem Hyperlipidemia, unspecified E78.5 Active 88818614 ALLERGIES No Information ENCOUNTERS Encounter Location Date Diagnosis [facility] [address] [facility] [id number] [place] [address] Dec, [facility] [place] [address] [id number] [place] [address] Nov [facility] [address] [id number] [place] [address] Nov [facility] [place] [address] [id number] [place] [address] Nov PVD (peripheral vascular disease) I73.9 ; Type 2 diabetes mellitus with hyperglycemia E11.65 and PAD (peripheral artery disease) I73.9 [facility] [place] [address] [id number] [place] [address] Nov [facility] [place] [address] [id number] [place] [address] Nov [facility] [place] [address] [id number] [place] [address] Nov [facility] [place] [address] [id number] [place] [address] October [facility] [place] [address] [id number] [place] [address] October [facility] [place] [address] [id number] [place] [address] October Type 2 diabetes mellitus with hyperglycemia E11.65 and Surgical procedure on lower extremity within past 6 months Z98.890 [facility] [place] [address] [id number] [place] [address] October [facility] [place] [address] [id number] [place] [address] October [facility] [address] [facility] [id number] [place] [address] October, [facility] [place] [address] [id number] [place] [address] October Sleep apnea in adult G47.30 [facility] [place] [address] [id number] [place] [address] October Type 2 diabetes mellitus with hyperglycemia E11.65 [facility] [place] [address] [id number] [place] [address] Sep [facility] [place] [address] [id number] [place] [address] Sep Breast asymmetry N64.89 [facility] [place] [address] [id number] [place] [address] Sep [facility] [place] [address] [id number] [place] [address] Sep Type 2 diabetes mellitus with hyperglycemia E11.65 ; Cocaine abuse F14.10 and Open wound of right great toe, subsequent encounter S91.101D [facility] [place] [address] [id number] [place] [address] Sep [facility] [place] [address] [id number] [place] [address] Aug [facility] [place] [address] [id number] [place] [address] Aug [facility] [place] [address] [id number] [place] [address] Aug Type 2 diabetes mellitus with hyperglycemia E11.65 [facility] [place] [address] [id number] [place] [address] Aug [facility] [address] [facility] [id number] [place] [address] Aug, [facility] [place] [address] [id number] [place] [address] Jul [facility] [place] [address] [id number] [place] [address] Jul Diabetic neuropathy E11.40 ; Essential hypertension I10 and Type 2 diabetes mellitus with hyperglycemia E11.65 [facility] [place] [address] [id number] [place] [address] Jul [facility] [place] [address] [id number] [place] [address] Jul [facility] [place] [address] [id number] [place] [address] Jul [facility] [place] [address] [id number] [place] [address] Jul [facility] [place] [address] [id number] [place] [address] Jul [facility] [place] [address] [id number] [place] [address] Jul Type 2 diabetes mellitus with hyperglycemia E11.65 ; Open wound of right great toe, subsequent encounter S91.101D ; Essential hypertension I10 and Diabetic neuropathy E11.[address] [facility] [address] [id number] [place] [address] Jul, [facility] [place] [address] [id number] [place] [address] Jun [facility] [place] [address] [id number] [place] [address] Jun Type 2 diabetes mellitus with hyperglycemia E11.65 [facility] [place] [address] [id number] [place] [address] Jun [facility] [place] [address] [id number] [place] [address] Jun [facility] [place] [address] [id number] [place] [address] Jun Abnormal mammogram of right breast R92.8 and Breast asymmetry N64.89 [facility] [place] [address] [id number] [place] [address] Jun [facility] [place] [address] [id number] [place] [address] Jun [facility] [place] [address] [id number] [place] [address] May Hypoglycemia E16.2 [facility] [place] [address] [id number] [place] [address] May Abnormal neurological exam R29.90 [facility] [place] [address] [id number] [place] [address] May [facility] [place] [address] [id number] [place] [address] May Type 2 diabetes mellitus with hyperglycemia E11.65 [facility] [place] [address] [id number] [place] [address] May Breast cancer screening Z12.31 and Hematuria, unspecified type R31.9 [facility] [place] [address] [id number] [place] [address] May [facility] [address] [id number] [place] [address] May Type 2 diabetes mellitus with hyperglycemia E11.65 ; Essential hypertension I10 ; Moderately severe depression F32.2 and Confusion R41.0 [place] [address] [id number] [address] May, [facility] HoldingsCON[facility] [address] [id number] [place] [address] May Cerebrovascular accident (CVA), unspecified mechanism I63.9 ; Essential hypertension I10 ; Hyperlipidemia, unspecified E78.5 and Type 2 diabetes mellitus with hyperglycemia E11.65 [place] [address] [address] May, [place] [address] [id number] [address] May, [facility] HoldingsCON[facility] [address] [id number] [place] [address] May [facility] HoldingsCON[facility] [address] [id number] [place] [address] May Diabetic neuropathy E11.40 and Diabetes E11.9 [facility] [place] [address] [id number] [place] [address] Apr [facility] [address] [id number] [place] [address] Apr Subacute maxillary sinusitis J01.00 ; Hypoglycemia associated with type 2 diabetes mellitus E11.649 and Intractable episodic headache, unspecified headache type R51 [facility] [place] [address] [id number] [place] [address] Apr Diabetic neuropathy E11.40 and Anxiety F41.9 [facility] [place] [address] [id number] [place] [address] Apr [facility] [place] [address] [id number] [place] [address] Apr Type 2 diabetes mellitus with hyperglycemia E11.65 ; Subacute maxillary sinusitis J01.00 ; Diabetic neuropathy E11.40 and Sleep apnea in adult G47.30 [place] [address] [id number] [address] Apr, [facility] [place] [address] [id number] [place] [address] Apr [facility] [place] [address] [id number] [place] [address] Apr [facility] [place] [address] [id number] [place] [address] Apr Subacute maxillary sinusitis J01.00 [place] [address] [address] Apr, Right foot drop M21.371 [facility] [place] [address] [id number] [place] [address] Apr [facility] [place] [address] [id number] [place] [address] Mar [facility] [place] [address] [id number] [place] [address] Mar Essential hypertension I10 ; Type 2 diabetes mellitus with hyperglycemia E11.65 ; Encounter for immunization Z23 ; Cocaine abuse F14.10 and Hyperlipidemia, unspecified E78.5 [facility] [place] [address] [id number] [place] [address] Mar [place] [address] [id number] [address] Mar, [facility] [place] [address] [id number] [place] [address] Feb [facility] [place] [address] [id number] [place] [address] Feb Type 2 diabetes mellitus with hyperglycemia E11.65 and Acute right ankle pain M25.571 [facility] [place] [address] [id number] [place] [address] Feb Weight loss R63.4 and Anxiety F41.9 [place] [address] [id number] [address] Jan, [facility] [address], [place] [address] Jan, [facility] [address], [place] [address] Jan, [facility] [address], [place] [address] Jan, Diabetes E11.9 [facility] [address] [id number] [place] [address] Jan Sprain of right ankle, unspecified ligament, initial encounter S93.401A [facility] [place] [address] [id number] [place] [address] Jan Essential hypertension I10 ; Anxiety F41.9 and Type 2 diabetes mellitus with hyperglycemia E11.65 [facility] [address], [place] [address] Jan, Diabetes E11.9 [facility] [address], [place] [address] Jan, [facility] [address] [place] [address] Jan, [facility] [place] [address] [id number] [place] [address] Jan [facility] [address], [place] [address] Jan, [facility] [address] [address] Jan, [facility] [address]100[place], [place] [address] Jan, [facility] [address]100[place], [place] [address] Jan, [facility] [address]100[place], [place] [address] Jan, Unintentional weight loss R63.4 ; Stage 2 chronic kidney disease N18.2 ; Exposure to hepatitis C Z20.5 ; Diabetic neuropathy E11.40 ; Obstructive sleep apnea syndrome G47.33 ; Essential hypertension I10 and Type 2 diabetes mellitus with hyperglycemia E11.65 [facility] [address]100[place], [place] [address] Jan, [facility] [id number] [place] [address] Jan, Type 2 diabetes mellitus with hyperglycemia E11.65 ; Diabetic neuropathy E11.40 and Essential hypertension I10 [facility] [address] [place] [address] Dec, Diabetes E11.9 [facility] [address] [place] [address] Dec, [facility] [id number] [place] [address] Dec, [facility] [address] [place] [address] Dec, [facility] [id number] [place] [address] Dec, Dental examination Z01.20 [facility] [address] [place] [address] Dec, [facility] [address] [place] [address] Dec, Diabetes E11.9 [facility] [address] [address] Dec, Stage 2 chronic kidney disease N18.2 ; Exposure to hepatitis C Z20.5 ; Obstructive sleep apnea syndrome G47.33 and Type 2 diabetes mellitus with hyperglycemia E11.65 [facility] [address], [place] [address] Dec, [facility] [place] [address] [id number] [place] [address] Dec Diabetes E11.9 and Essential hypertension I10 [facility] [address] [facility] [id number] [place] [address] Nov, Diabetes E11.9 [facility] [address] [id number] [address] Nov, Right foot pain M79.671 [facility] [address] [id number] [address] Nov, Right foot pain M79.671 [facility] [place] [address] [id number] [place] [address] Nov Diabetes E11.9 [facility] [place] [address] [id number] [place] [address] Nov Diabetes E11.9 [facility] [address] [id number] [address] Nov, Dental examination Z01.20 [facility] [place] [address] [id number] [place] [address] Nov Diabetes E11.9 ; Cocaine abuse F14.10 and Shingles (herpes zoster) polyneuropathy B02.23 [facility] [place] [address] [id number] [place] [address] Nov [facility] [address] [facility] [facility] [id number] [place] [address] October, [facility] [place] [address] [id number] [place] [address] October [facility] [place] [address] [id number] [place] [address] October Unintentional weight loss R63.4 [facility] [place] [address] [id number] [place] [address] October Abscess L02.91 [facility] [place] [address] [id number] [place] [address] October Diabetes E11.9 ; Unintentional weight loss R63.4 ; History of hematuria Z87.448 and Cocaine abuse F14.10 [facility] [place] [address] [id number] [place] [address] October Diabetes E11.9 [facility] [place] [address] [id number] [place] [address] October Essential hypertension I10 and Abscess L02.91 [facility] [place] [address] [id number] [place] [address] Jun [facility] [place] [address] [id number] [place] [address] May Breast cancer screening Z12.39 ; Diabetes E11.9 and Anxiety F41.9 [facility] [address] [facility] [id number] [place] [address] May, Diabetes E11.9 [facility] [place] [address] [id number] [place] [address] May Diabetes E11.9 and Anemia D64.9 [facility] [place] [address] [id number] [place] [address] May Anxiety F41.9 [facility] [place] [address] [id number] [place] [address] 08 May [facility] [place] [address] [id number] [place] [address] May Dysuria R30.0 [facility] [place] [address] [id number] [place] [address] May [facility] [place] [address] [id number] [place] [address] 05 May Dysuria R30.0 and Vaginal itching L29.8 [facility] [address] [facility] [id number] [place] [address] Apr, [facility] [place] [address] [id number] [place] [address] 14 Apr Diabetes E11.9 ; Dysuria R30.0 ; Diabetic neuropathy E11.40 ; Anemia D64.9 and Vaginal discharge N89.8 [facility] [address] [id number] [address] Jun, [address]00565100[place] [address] Jun, Anemia D64.9 ; Anxiety F41.9 ; Diabetes E11.9 and Diabetic neuropathy E11.40 [address]00565100[place] [address] May, [facility] [address] 3923265100[place], [place] [address] Apr, [place] [id number] [place] [id number] Apr, Anemia D64.9 ; Anxiety F41.9 ; Diabetes E11.9 and Diabetic neuropathy E11.40 [place] [address] [place] [id number] Mar, Acute costochondritis M94.0 [place] [address] [place] [id number] Mar, Bilateral low back pain without sciatica M54.5 and Bereavement Z63.4 [place] [address] [place] [id number] Mar, Obstructive chronic bronchitis with acute exacerbation J44.1 ; Herpes zoster without complication B02.9 and [place] N91.2 [place] [address] [place] [id number] Mar, [place] [address] [place] [id number] Mar, [place] [address] [place] [id number] Feb, History of recent traumatic injury of head V15.52 ; Diabetes type 2, uncontrolled 250.02 and Visual disturbance 368.9 [place] [address] [place] [id number] Feb, History of recent traumatic injury of head V15.52 ; Visual disturbance 368.9 and Diabetes type 2, uncontrolled 250.02 IMMUNIZATIONS No Known Immunizations SOCIAL HISTORY Never Assessed REASON FOR VISIT Requests return call PLAN OF CARE VITAL SIGNS MEDICATIONS Unknown [...] infection 2004 Hospitalization History in rehab at [place] 2016 Hospitalization History Stroke 05/2017 Hospitalization History surgeries Hospitalization History Elevated B/S 07/2017 Hospitalization History [facility] - blood clot LRE 10/2017 Hospitalization History [facility] - R ankle clot 11/2017
--- OUTSIDE RECORDS SUMMARY | 2018-05-13 10:45 | XMS REPORT ---
Author Author CHRIS BECKWITH [facility] Address [address] [place] [address] Care Team Providers Care Trans Router Name Role Phone CHRIS BECKWITH Unavailable PROBLEMS Type Condition ICD9-CM Code RZO94-FZ Code Onset Dates Condition Status SNOMED Code Problem Sleep apnea in adult G47.30 Active 17035272 Problem Moderately severe depression F32.2 Active 966076996 Problem Hypoglycemia associated with type 2 diabetes mellitus E11.649 Active 699223181 Problem PVD (peripheral vascular disease) I73.9 Active 567208953 Problem PAD (peripheral artery disease) I73.9 Active 028645737 Problem Hypoglycemia E16.2 Active 204074045 Problem Cerebrovascular accident (CVA), unspecified mechanism I63.9 Active 392241215 Problem Breast asymmetry N64.89 Active 169181033 Problem Abnormal mammogram of right breast R92.8 Active 362794634 Problem Diabetic neuropathy E11.40 Active 161351977 Problem Anxiety F41.9 Active 97415353 Problem Obstructive sleep apnea syndrome G47.33 Active 80449691 Problem Stage 2 chronic kidney disease N18.2 Active 231033345 Problem Essential hypertension I10 Active 82645428 Problem Type 2 diabetes mellitus with hyperglycemia E11.65 Active 113374573443044 Problem Cocaine abuse F14.10 Active 88702675 Problem Hyperlipidemia, unspecified E78.5 Active 66998820 ALLERGIES No Information ENCOUNTERS Encounter Location Date Diagnosis [facility] [address] [facility] [id number] [place] [address] Dec, [facility] [place] [address] [id number] [place] [address] Nov [facility] [address] [id number] [place] [address] Nov [facility] [place] [address] [id number] [place] [address] Nov PVD (peripheral vascular disease) I73.9 ; Type 2 diabetes mellitus with hyperglycemia E11.65 and PAD (peripheral artery disease) I73.9 [facility] [place] [address] [id number] [place] [address] Nov [facility] [place] [address] [id number] [place] [address] Nov [facility] [place] [address] [id number] [place] [address] Nov [facility] [place] [address] [id number] [place] [address] October [facility] [place] [address] [id number] [place] [address] October [facility] [place] [address] [id number] [place] [address] October Type 2 diabetes mellitus with hyperglycemia E11.65 and Surgical procedure on lower extremity within past 6 months Z98.890 [facility] [place] [address] [id number] [place] [address] October [facility] [place] [address] [id number] [place] [address] October [facility] [address] [facility] [id number] [place] [address] October, [facility] [place] [address] [id number] [place] [address] October Sleep apnea in adult G47.30 [facility] [place] [address] [id number] [place] [address] October Type 2 diabetes mellitus with hyperglycemia E11.65 [facility] [place] [address] [id number] [place] [address] Sep [facility] [place] [address] [id number] [place] [address] Sep Breast asymmetry N64.89 [facility] [place] [address] [id number] [place] [address] Sep [facility] [place] [address] [id number] [place] [address] Sep Type 2 diabetes mellitus with hyperglycemia E11.65 ; Cocaine abuse F14.10 and Open wound of right great toe, subsequent encounter S91.101D [facility] [place] [address] [id number] [place] [address] Sep [facility] [place] [address] [id number] [place] [address] Aug [facility] [place] [address] [id number] [place] [address] Aug [facility] [place] [address] [id number] [place] [address] Aug Type 2 diabetes mellitus with hyperglycemia E11.65 [facility] [place] [address] [id number] [place] [address] Aug [facility] [address] [facility] [id number] [place] [address] Aug, [facility] [place] [address] [id number] [place] [address] Jul [facility] [place] [address] [id number] [place] [address] Jul Diabetic neuropathy E11.40 ; Essential hypertension I10 and Type 2 diabetes mellitus with hyperglycemia E11.65 [facility] [place] [address] [id number] [place] [address] Jul [facility] [place] [address] [id number] [place] [address] Jul [facility] [place] [address] [id number] [place] [address] Jul [facility] [place] [address] [id number] [place] [address] Jul [facility] [place] [address] [id number] [place] [address] Jul [facility] [place] [address] [id number] [place] [address] Jul Type 2 diabetes mellitus with hyperglycemia E11.65 ; Open wound of right great toe, subsequent encounter S91.101D ; Essential hypertension I10 and Diabetic neuropathy E11.[address] [facility] [address] [id number] [place] [address] Jul, [facility] [place] [address] [id number] [place] [address] Jun [facility] [place] [address] [id number] [place] [address] Jun Type 2 diabetes mellitus with hyperglycemia E11.65 [facility] [place] [address] [id number] [place] [address] Jun [facility] [place] [address] [id number] [place] [address] Jun [facility] [place] [address] [id number] [place] [address] Jun Abnormal mammogram of right breast R92.8 and Breast asymmetry N64.89 [facility] [place] [address] [id number] [place] [address] Jun [facility] [place] [address] [id number] [place] [address] Jun [facility] [place] [address] [id number] [place] [address] May Hypoglycemia E16.2 [facility] [place] [address] [id number] [place] [address] May Abnormal neurological exam R29.90 [facility] [place] [address] [id number] [place] [address] May [facility] [place] [address] [id number] [place] [address] May Type 2 diabetes mellitus with hyperglycemia E11.65 [facility] [place] [address] [id number] [place] [address] May Breast cancer screening Z12.31 and Hematuria, unspecified type R31.9 [facility] [place] [address] [id number] [place] [address] May [facility]ENTERBambisaONS [address] [id number] [place] [address] May Type 2 diabetes mellitus with hyperglycemia E11.65 ; Essential hypertension I10 ; Moderately severe depression F32.2 and Confusion R41.0 [place] [address] [id number] [address] May, [facility] [place] [address] [id number] [place] [address] May Cerebrovascular accident (CVA), unspecified mechanism I63.9 ; Essential hypertension I10 ; Hyperlipidemia, unspecified E78.5 and Type 2 diabetes mellitus with hyperglycemia E11.65 [place] [address], [place] [address] May, [place] [address] [id number], [place] [address] May, [facility] [place] [address] [id number] [place] [address] May [facility] Development[place] [address] [id number] [place] [address] May Diabetic neuropathy E11.40 and Diabetes E11.9 [facility]ENTERPl[facility] Vanilla [place] [address] [id number] [place] [address] Apr [facility]ENTERBambisaONS [address] [id number] [place] [address] Apr Subacute maxillary sinusitis J01.00 ; Hypoglycemia associated with type 2 diabetes mellitus E11.649 and Intractable episodic headache, unspecified headache type R51 [facility] [place] [address] [id number] [place] [address] Apr Diabetic neuropathy E11.40 and Anxiety F41.9 [facility]SEProFund[facility] [place] [address] [id number] [place] [address] Apr [facility]ENTERPl[facility] Vanilla [place] [address] [id number] [place] [address] Apr Type 2 diabetes mellitus with hyperglycemia E11.65 ; Subacute maxillary sinusitis J01.00 ; Diabetic neuropathy E11.40 and Sleep apnea in adult G47.30 [place] [address] [id number] [address] Apr, [facility] [place] [address] [id number] [place] [address] Apr [facility] [place] [address] [id number] [place] [address] Apr [facility] [place] [address] [id number] [place] [address] Apr Subacute maxillary sinusitis J01.00 [place] [address], [place] [address] Apr, Right foot drop M21.371 [facility] [place] [address] [id number] [place] [address] Apr [facility] [place] [address] [id number] [place] [address] Mar [facility] [place] [address] [id number] [place] [address] Mar Essential hypertension I10 ; Type 2 diabetes mellitus with hyperglycemia E11.65 ; Encounter for immunization Z23 ; Cocaine abuse F14.10 and Hyperlipidemia, unspecified E78.5 [facility] [place] [address] [id number] [place] [address] Mar [place] [address] [id number], [place] [address] Mar, [facility] [place] [address] [id number] [place] [address] Feb [facility] [place] [address] [id number] [place] [address] Feb Type 2 diabetes mellitus with hyperglycemia E11.65 and Acute right ankle pain M25.571 [facility] [place] [address] [id number] [place] [address] Feb Weight loss R63.4 and Anxiety F41.9 [place] [address] [id number], [place] [address] Jan, [facility] [address], [place] [address] Jan, [facility] [address], [place] [address] Jan, [facility] [address], [place] [address] Jan, Diabetes E11.9 [facility] MAN [address] [id number] [place] [address] Jan Sprain of right ankle, unspecified ligament, initial encounter S93.401A [facility]ITALG[facility] [place] [address] [id number] [place] [address] Jan Essential hypertension I10 ; Anxiety F41.9 and Type 2 diabetes mellitus with hyperglycemia E11.65 [facility] [address], [place] [address] Jan, Diabetes E11.9 [facility] [address], [place] [address] Jan, [facility] [address] [place] [address] Jan, [facility] [place] [address] [id number] [place] [address] Jan [facility] [address], [place] [address] Jan, [facility] [address], [place] [address] Jan, [facility] [address], [place] [address] Jan, [facility] [address], [place] [address] Jan, [facility] [address], [place] [address] Jan, Unintentional weight loss R63.4 ; Stage 2 chronic kidney disease N18.2 ; Exposure to hepatitis C Z20.5 ; Diabetic neuropathy E11.40 ; Obstructive sleep apnea syndrome G47.33 ; Essential hypertension I10 and Type 2 diabetes mellitus with hyperglycemia E11.65 [facility] [address], [place] [address] Jan, [facility] [id number] [place] [address] Jan, Type 2 diabetes mellitus with hyperglycemia E11.65 ; Diabetic neuropathy E11.40 and Essential hypertension I10 [facility] [address] [place] [address] Dec, Diabetes E11.9 [facility] [address] [place] [address] Dec, [facility] [id number] [place] [address] Dec, [facility] [address] [place] [address] Dec, [facility] [id number] [place] [address] Dec, Dental examination Z01.20 [facility] [address] [place] [address] Dec, [facility] [address] [place] [address] Dec, Diabetes E11.9 [facility] [address], [place] [address] Dec, Stage 2 chronic kidney disease N18.2 ; Exposure to hepatitis C Z20.5 ; Obstructive sleep apnea syndrome G47.33 and Type 2 diabetes mellitus with hyperglycemia E11.65 [facility] [address], [place] [address] Dec, [facility] [place] [address] [id number] [place] [address] Dec Diabetes E11.9 and Essential hypertension I10 [facility] [address] [facility] [id number] [place] [address] Nov, Diabetes E11.9 [facility] [address] [id number] [address] Nov, [facility] M79.671 [facility] [address] [id number] [address] Nov, Right foot pain M79.671 [facility] [place] [address] [id number] [place] [address] Nov Diabetes E11.9 [facility] [place] [address] [id number] [place] [address] Nov Diabetes E11.9 [facility] [address] [id number] [place] [address] Nov, Dental examination Z01.20 [facility] [place] [address] [id number] [place] [address] Nov Diabetes E11.9 ; Cocaine abuse F14.10 and Shingles (herpes zoster) polyneuropathy B02.23 [facility] [place] [address] [id number] [place] [address] Nov [facility] [address] [facility] [id number] [place] [address] October, [facility] [place] [address] [id number] [place] [address] October [facility] [place] [address] [id number] [place] [address] October Unintentional weight loss R63.4 [facility] [place] [address] [id number] [place] [address] October Abscess L02.91 [facility] [place] [address] [id number] [place] [address] October Diabetes E11.9 ; Unintentional weight loss R63.4 ; History of hematuria Z87.448 and Cocaine abuse F14.10 [facility] [place] [address] [id number] [place] [address] October Diabetes E11.9 [facility] [place] [address] [id number] [place] [address] October Essential hypertension I10 and Abscess L02.91 [facility] [place] [address] [id number] [place] [address] Jun [facility] [place] [address] [id number] [place] [address] May Breast cancer screening Z12.39 ; Diabetes E11.9 and Anxiety F41.9 [facility] [place] [address] [facility] [id number] [place] [address] May, Diabetes E11.9 [facility] [place] [address] [id number] [place] [address] May Diabetes E11.9 and Anemia D64.9 [facility] [place] [address] [id number] [place] [address] May Anxiety F41.9 [facility] [place] [address] [id number] [place] [address] 08 May [facility] [place] [address] [id number] [place] [address] May Dysuria R30.0 [facility] [place] [address] [id number] [place] [address] May [facility] [place] [address] [id number] [place] [address] 05 May Dysuria R30.0 and Vaginal itching L29.8 [facility] [address] [facility] [id number] [place] [address] Apr, [facility] [place] [address] [id number] [place] [address] 14 Apr Diabetes E11.9 ; Dysuria R30.0 ; Diabetic neuropathy E11.40 ; Anemia D64.9 and Vaginal discharge N89.8 [facility] [address] [id number], [place] [address] Jun, [address]65[address] [address] Jun, Anemia D64.9 ; Anxiety F41.9 ; Diabetes E11.9 and Diabetic neuropathy E11.40 [address]65[address] [address] May, [facility] [address] 0539265100[place], [place] [address] Apr, [place] [id number] [place] [id number] Apr, Anemia D64.9 ; Anxiety F41.9 ; Diabetes E11.9 and Diabetic neuropathy E11.40 [place] [id number] [place] [id number] Mar, Acute costochondritis M94.0 [place] [id number] [place] [id number] Mar, Bilateral low back pain without sciatica M54.5 and Bereavement Z63.4 [place] [id number] [place] [id number] Mar, Obstructive chronic bronchitis with acute exacerbation J44.1 ; Herpes zoster without complication B02.9 and Alborn N91.2 [place] [id number] [place] [id number] Mar, [place] [id number] [place] [address] [id number] Mar, [place] [id number] [place] [id number] Feb, History of recent traumatic injury of head V15.52 ; Diabetes type 2, uncontrolled 250.02 and Visual disturbance 368.9 [address] [place] [id number] [place] [id number] Feb, History of recent traumatic injury of [...] infection 2004 Hospitalization History in rehab at [facility] 2016 Hospitalization History Stroke 05/2017 Hospitalization History surgeries Hospitalization History Elevated B/S 07/2017 Hospitalization History [facility] - blood clot LRE 10/2017 Hospitalization History [facility] - R ankle clot 11/2017
--- OUTSIDE RECORDS SUMMARY | 2018-05-13 10:46 | XMS REPORT ---
Author Author CHRIS BECKWITH [facility] Address [address] [place] [address] Care Team Providers Care Barrel Assembler Name Role Phone CHRIS BECKWITH Unavailable PROBLEMS Type Condition ICD9-CM Code MIB78-LM Code Onset Dates Condition Status SNOMED Code Problem Sleep apnea in adult G47.30 Active 12994835 Problem Moderately severe depression F32.2 Active 762736287 Problem Hypoglycemia associated with type 2 diabetes mellitus E11.649 Active 563487489 Problem PVD (peripheral vascular disease) I73.9 Active 296586785 Problem PAD (peripheral artery disease) I73.9 Active 488515185 Problem Hypoglycemia E16.2 Active 400228741 Problem Cerebrovascular accident (CVA), unspecified mechanism I63.9 Active 172970864 Problem Breast asymmetry N64.89 Active 023728985 Problem Abnormal mammogram of right breast R92.8 Active 545679329 Problem Diabetic neuropathy E11.40 Active 764891135 Problem Anxiety F41.9 Active 08569694 Problem Obstructive sleep apnea syndrome G47.33 Active 34901609 Problem Stage 2 chronic kidney disease N18.2 Active 708332831 Problem Essential hypertension I10 Active 39002105 Problem Type 2 diabetes mellitus with hyperglycemia E11.65 Active 095285088297549 Problem Cocaine abuse F14.10 Active 43097399 Problem Hyperlipidemia, unspecified E78.5 Active 55374716 ALLERGIES No Information ENCOUNTERS Encounter Location Date Diagnosis [facility] [address] [facility] [id number] [place] [address] Dec, [facility] [place] [address] [id number] [place] [address] Nov [facility] [address] [id number] [place] [address] Nov [facility] [place] [address] [id number] [place] [address] Nov PVD (peripheral vascular disease) I73.9 ; Type 2 diabetes mellitus with hyperglycemia E11.65 and PAD (peripheral artery disease) I73.9 [facility] [place] [address] [id number] [place] [address] Nov [facility] [place] [address] [id number] [place] [address] Nov [facility] [place] [address] [id number] [place] [address] Nov [facility] [place] [address] [id number] [place] [address] October [facility] [place] [address] [id number] [place] [address] October [facility] [place] [address] [id number] [place] [address] October Type 2 diabetes mellitus with hyperglycemia E11.65 and Surgical procedure on lower extremity within past 6 months Z98.890 [facility] [place] [address] [id number] [place] [address] October [facility] [place] [address] [id number] [place] [address] [facility] [address] [facility] [id number] [place] [address] October, [facility] [place] [address] [id number] [place] [address] October Sleep apnea in adult G47.30 [facility] [place] [address] [id number] [place] [address] October Type 2 diabetes mellitus with hyperglycemia E11.65 [facility] [place] [address] [id number] [place] [address] Sep [facility] [place] [address] [id number] [place] [address] Sep Breast asymmetry N64.89 [facility] [place] [address] [id number] [place] [address] Sep [facility] [place] [address] [id number] [place] [address] Sep Type 2 diabetes mellitus with hyperglycemia E11.65 ; Cocaine abuse F14.10 and Open wound of right great toe, subsequent encounter S91.101D [facility] [place] [address] [id number] [place] [address] Sep [facility] [place] [address] [id number] [place] [address] Aug [facility] [place] [address] [id number] [place] [address] Aug [facility] [place] [address] [id number] [place] [address] Aug Type 2 diabetes mellitus with hyperglycemia E11.65 [facility] [place] [address] [id number] [place] [address] Aug [facility] [address] [facility] [id number] [place] [address] Aug, [facility] [place] [address] [id number] [place] [address] Jul [facility] [place] [address] [id number] [place] [address] Jul Diabetic neuropathy E11.40 ; Essential hypertension I10 and Type 2 diabetes mellitus with hyperglycemia E11.65 [facility] [place] [address] [id number] [place] [address] Jul [facility] [place] [address] [id number] [place] [address] Jul [facility] [place] [address] [id number] [place] [address] Jul [facility] [place] [address] [id number] [place] [address] Jul [facility] [place] [address] [id number] [place] [address] Jul [facility] [place] [address] [id number] [place] [address] Jul Type 2 diabetes mellitus with hyperglycemia E11.65 ; Open wound of right great toe, subsequent encounter S91.101D ; Essential hypertension I10 and Diabetic neuropathy E11.[address] [facility] [address] [id number] [place] [address] Jul, [facility] [place] [address] [id number] [place] [address] Jun [facility] [place] [address] [id number] [place] [address] Jun Type 2 diabetes mellitus with hyperglycemia E11.65 [facility] [place] [address] [id number] [place] [address] Jun [facility] [place] [address] [id number] [place] [address] Jun [facility] [place] [address] [id number] [place] [address] Jun Abnormal mammogram of right breast R92.8 and Breast asymmetry N64.89 [facility] [place] [address] [id number] [place] [address] Jun [facility] [place] [address] [id number] [place] [address] Jun [facility] [place] [address] [id number] [place] [address] May Hypoglycemia E16.2 [facility] [place] [address] [id number] [place] [address] May Abnormal neurological exam R29.90 [facility] [place] [address] [id number] [place] [address] May [facility] [place] [address] [id number] [place] [address] May Type 2 diabetes mellitus with hyperglycemia E11.65 [facility] [place] [address] [id number] [place] [address] May Breast cancer screening Z12.31 and Hematuria, unspecified type R31.9 [facility] [place] [address] [id number] [place] [address] May [facility] [address] [id number] [place] [address] May Type 2 diabetes mellitus with hyperglycemia E11.65 ; Essential hypertension I10 ; Moderately severe depression F32.2 and Confusion R41.0 [place] [address] [id number] [place] [address] May, [facility] [address] [id number] [place] [address] May Cerebrovascular accident (CVA), unspecified mechanism I63.9 ; Essential hypertension I10 ; Hyperlipidemia, unspecified E78.5 and Type 2 diabetes mellitus with hyperglycemia E11.65 [place] [address], [place] [address] May, [place] [address] [id number], [place] [address] May, [facility] [address] [id number] [place] [address] May [facility] [address] [id number] [place] [address] May Diabetic neuropathy E11.40 and Diabetes E11.9 [facility] [place] [address] [id number] [place] [address] Apr [facility] [address] [id number] [place] [address] Apr Subacute maxillary sinusitis J01.00 ; Hypoglycemia associated with type 2 diabetes mellitus E11.649 and Intractable episodic headache, unspecified headache type R51 [facility] [place] [address] [id number] [place] [address] Apr Diabetic neuropathy E11.40 and Anxiety F41.9 [facility] [place] [address] [id number] [place] [address] Apr [facility] [place] [address] [id number] [place] [address] Apr Type 2 diabetes mellitus with hyperglycemia E11.65 ; Subacute maxillary sinusitis J01.00 ; Diabetic neuropathy E11.40 and Sleep apnea in adult G47.30 [place] [address] [id number] [place] [address] Apr, [facility] [place] [address] [id number] [place] [address] [facility] [place] [address] [id number] [place] [address] Apr [facility] [place] [address] [id number] [place] [address] Apr Subacute maxillary sinusitis J01.00 [place] [address], [place] [address] Apr, Right foot drop M21.[address] [facility] [place] [address] [id number] [place] [address] [facility] [place] [address] [id number] [place] [address] Mar [facility] [place] [address] [id number] [place] [address] Mar Essential hypertension I10 ; Type 2 diabetes mellitus with hyperglycemia E11.65 ; Encounter for immunization Z23 ; Cocaine abuse F14.10 and Hyperlipidemia, unspecified E78.[address] [facility] [place] [address] [id number] [place] [address] Mar [place] [address] [id number] [address] Mar, [facility] [place] [address] [id number] [place] [address] Feb [facility] [place] [address] [id number] [place] [address] Feb Type 2 diabetes mellitus with hyperglycemia E11.65 and Acute right ankle pain M25.[address] [facility] [place] [address] [id number] [place] [address] Feb Weight loss R63.4 and Anxiety F41.9 [place] [address] [id number] [address] Jan, [facility] [address], [place] [address] Jan, [facility] [address], [place] [address] Jan, [facility] [address], [place] [address] Jan, Diabetes E11.[address] [facility] [address] [id number] [place] [address] Jan Sprain of right ankle, unspecified ligament, initial encounter S93.401A [facility] [place] [address] [id number] [place] [address] Jan Essential hypertension I10 ; Anxiety F41.9 and Type 2 diabetes mellitus with hyperglycemia E11.65 [facility] [address], [place] [address] Jan, Diabetes E11.9 [facility] [address], [place] [address] Jan, [facility] [address] [place] [address] Jan, [facility] [place] [address] [id number] [place] [address] Jan [facility] [address], [place] [address] Jan, [facility] [address], [place] [address] Jan, [facility] [address], [place] [address] Jan, [facility] [address], [place] [address] Jan, [facility] [address], [place] [address] Jan, Unintentional weight loss R63.4 ; Stage 2 chronic kidney disease N18.2 ; Exposure to hepatitis C Z20.5 ; Diabetic neuropathy E11.40 ; Obstructive sleep apnea syndrome G47.33 ; Essential hypertension I10 and Type 2 diabetes mellitus with hyperglycemia E11.65 [facility] [address], [place] [address] Jan, [facility] [address] [id number] [place] [address] Jan, Type 2 diabetes mellitus with hyperglycemia E11.65 ; Diabetic neuropathy E11.40 and Essential hypertension I10 [facility] [address] [place] [address] Dec, Diabetes E11.9 [facility] [address] [place] [address] Dec, [facility] [id number] [place] [address] Dec, [facility] [address] [place] [address] Dec, [facility] [id number] [place] [address] Dec, Dental examination Z01.20 [facility] [address] [place] [address] Dec, [facility] [address] [place] [address] Dec, Diabetes E11.9 [facility] [address], [place] [address] Dec, Stage 2 chronic kidney disease N18.2 ; Exposure to hepatitis C Z20.5 ; Obstructive sleep apnea syndrome G47.33 and Type 2 diabetes mellitus with hyperglycemia E11.65 [facility] [address], [place] [address] Dec, [facility] [place] [address] [id number] [place] [address] Dec Diabetes E11.9 and Essential hypertension I10 [facility] [address] [facility] [id number] [place] [address] Nov, Diabetes E11.9 [facility] [address] [id number] [address] Nov, Right foot pain M79.671 [facility] [address] [id number] [place] [address] Nov, Right foot pain M79.[address] [facility] [place] [address] [id number] [place] [address] Nov Diabetes E11.[address] [facility] [place] [address] [id number] [place] [address] Nov Diabetes E11.9 [facility] [address] [id number] [address] Nov, Dental examination Z01.20 [facility] [place] [address] [id number] [place] [address] Nov Diabetes E11.9 ; Cocaine abuse F14.10 and Shingles (herpes zoster) polyneuropathy B02.[address] [facility] [place] [address] [id number] [place] [address] Nov [facility] [address] [facility] [id number] [place] [address] October, [facility] [place] [address] [id number] [place] [address] October [facility] [place] [address] [id number] [place] [address] October Unintentional weight loss R63.4 [facility] [place] [address] [id number] [place] [address] October Abscess L02.91 [facility] [place] [address] [id number] [place] [address] October Diabetes E11.9 ; Unintentional weight loss R63.4 ; History of hematuria Z87.448 and Cocaine abuse F14.10 [facility] [place] [address] [id number] [place] [address] October Diabetes E11.9 [facility] [place] [address] [id number] [place] [address] October Essential hypertension I10 and Abscess L02.91 [facility] [place] [address] [id number] [place] [address] Jun [facility] [place] [address] [id number] [place] [address] May Breast cancer screening Z12.39 ; Diabetes E11.9 and Anxiety F41.9 [facility] [place] [address] [facility] [id number] [place] [address] May, Diabetes E11.9 [facility] [place] [address] [id number] [place] [address] May Diabetes E11.9 and Anemia D64.9 [facility] [place] [address] [id number] [place] [address] May Anxiety F41.9 [facility] [place] [address] [id number] [place] [address] 08 May [facility] [place] [address] [id number] [place] [address] May Dysuria R30.0 [facility] [place] [address] [id number] [place] [address] May [facility] [place] [address] [id number] [place] [address] 05 May Dysuria R30.0 and Vaginal itching L29.8 [facility] [address] [facility] [id number] [place] [address] Apr, [facility] [place] [address] [id number] [place] [address] 14 Apr Diabetes E11.9 ; Dysuria R30.0 ; Diabetic neuropathy E11.40 ; Anemia D64.9 and Vaginal discharge N89.8 [facility] [address] [id number], [place] [address] Jun, [address] [address] Jun, Anemia D64.9 ; Anxiety F41.9 ; Diabetes E11.9 and Diabetic neuropathy E11.40 [address]65[address] [id number] May, [facility] [address] 1324665100[place], [place] [address] Apr, [place] [id number] [place] [id number] Apr, Anemia D64.9 ; Anxiety F41.9 ; Diabetes E11.9 and Diabetic neuropathy E11.40 [place] [id number] [place] [id number] Mar, Acute costochondritis M94.0 [place] [id number] [place] [id number] Mar, Bilateral low back pain without sciatica M54.5 and Bereavement Z63.4 [place] [id number] [place] [id number] Mar, Obstructive chronic bronchitis with acute exacerbation J44.1 ; Herpes zoster without complication B02.9 and [place] N91.2 [place] [id number] [place] [id number] Mar, [place] [id number] [place] [id number] Mar, [place] [address] [place] [id number] Feb, History of recent traumatic injury of head V15.52 ; Diabetes type 2, uncontrolled 250.02 and Visual disturbance 368.9 [place] [address] [place] [id number] Feb, History of recent traumatic injury of [...] infection 2004 Hospitalization History [facility] 2016 Hospitalization History Stroke 05/2017 Hospitalization History surgeries Hospitalization History Elevated B/S 07/2017 Hospitalization History [facility] - blood clot LRE 10/2017 Hospitalization History [facility] - R ankle clot 11/2017
--- OUTSIDE RECORDS SUMMARY | 2018-05-13 10:47 | XMS REPORT ---
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 Name Role Phone CHRIS BECKWITH Unavailable PROBLEMS Type Condition ICD9-CM Code FVC29-UP Code Onset Dates Condition Status SNOMED Code Problem Sleep apnea in adult G47.30 Active 09937576 Problem Moderately severe depression F32.2 Active 885099195 Problem Hypoglycemia associated with type 2 diabetes mellitus E11.649 Active 809942932 Problem PVD (peripheral vascular disease) I73.9 Active 057769990 Problem PAD (peripheral artery disease) I73.9 Active 162709743 Problem Hypoglycemia E16.2 Active 748324296 Problem Cerebrovascular accident (CVA), unspecified mechanism I63.9 Active 329671674 Problem Breast asymmetry N64.89 Active 816788193 Problem Abnormal mammogram of right breast R92.8 Active 761372699 Problem Diabetic neuropathy E11.40 Active 004455337 Problem Anxiety F41.9 Active 78619603 Problem Obstructive sleep apnea syndrome G47.33 Active 64099467 Problem Stage 2 chronic kidney disease N18.2 Active 426957937 Problem Essential hypertension I10 Active 58052256 Problem Type 2 diabetes mellitus with hyperglycemia E11.65 Active 460409105547993 Problem Cocaine abuse F14.10 Active 93204283 Problem Hyperlipidemia, unspecified E78.5 Active 63004988 ALLERGIES No Information ENCOUNTERS Encounter Location Date Diagnosis [facility] [address] [facility] [id number] [place] [address] Dec, [facility] [place] [address] [id number] [place] [address] [facility] [address] [id number] [place] [address] [facility] [place] [address] [id number] [place] [address] Nov PVD (peripheral vascular disease) I73.9 ; Type 2 diabetes mellitus with hyperglycemia E11.65 and PAD (peripheral artery disease) I73.9 [facility] [place] [address] [id number] [place] [address] Nov [facility] [place] [address] [id number] [place] [address] Nov [facility] [place] [address] [id number] [place] [address] Nov [facility] [place] [address] [id number] [place] [address] October [facility] [place] [address] [id number] [place] [address] October [facility] [place] [address] [id number] [place] [address] October Type 2 diabetes mellitus with hyperglycemia E11.65 and Surgical procedure on lower extremity within past 6 months Z98.890 [facility] [place] [address] [id number] [place] [address] October [facility] [place] [address] [id number] [place] [address] October [facility] [address] [facility] [id number] [place] [address] October, [facility] [place] [address] [id number] [place] [address] October Sleep apnea in adult G47.30 [facility] [place] [address] [id number] [place] [address] October Type 2 diabetes mellitus with hyperglycemia E11.65 [facility] [place] [address] [id number] [place] [address] Sep [facility] [place] [address] [id number] [place] [address] Sep Breast asymmetry N64.89 [facility] [place] [address] [id number] [place] [address] Sep [facility] [place] [address] [id number] [place] [address] Sep Type 2 diabetes mellitus with hyperglycemia E11.65 ; Cocaine abuse F14.10 and Open wound of right great toe, subsequent encounter S91.101D [facility] [place] [address] [id number] [place] [address] Sep [facility] [place] [address] [id number] [place] [address] Aug [facility] [place] [address] [id number] [place] [address] Aug [facility] [place] [address] [id number] [place] [address] Aug Type 2 diabetes mellitus with hyperglycemia E11.65 [facility] [place] [address] [id number] [place] [address] Aug [facility] [address] [facility] [id number] [place] [address] Aug, [facility] [place] [address] [id number] [place] [address] Jul [facility] [place] [address] [id number] [place] [address] Jul Diabetic neuropathy E11.40 ; Essential hypertension I10 and Type 2 diabetes mellitus with hyperglycemia E11.65 [facility] [place] [address] [id number] [place] [address] Jul [facility] [place] [address] [id number] [place] [address] Jul [facility] [place] [address] [id number] [place] [address] Jul [facility] [place] [address] [id number] [place] [address] Jul [facility] [place] [address] [id number] [place] [address] Jul [facility] [place] [address] [id number] [place] [address] Jul Type 2 diabetes mellitus with hyperglycemia E11.65 ; Open wound of right great toe, subsequent encounter S91.101D ; Essential hypertension I10 and Diabetic neuropathy E11.[address] [facility] [address] [id number] [place] [address] Jul, [facility] [place] [address] [id number] [place] [address] Jun [facility] [place] [address] [id number] [place] [address] Jun Type 2 diabetes mellitus with hyperglycemia E11.65 [facility] [place] [address] [id number] [place] [address] Jun [facility] [place] [address] [id number] [place] [address] Jun [facility] [place] [address] [id number] [place] [address] Jun Abnormal mammogram of right breast R92.8 and Breast asymmetry N64.89 [facility] [place] [address] [id number] [place] [address] Jun [facility] [place] [address] [id number] [place] [address] Jun [facility] [place] [address] [id number] [place] [address] May Hypoglycemia E16.2 [facility] [place] [address] [id number] [place] [address] May Abnormal neurological exam R29.90 [facility] [place] [address] [id number] [place] [address] May [facility] [place] [address] [id number] [place] [address] May Type 2 diabetes mellitus with hyperglycemia E11.65 [facility] [place] [address] [id number] [place] [address] May Breast cancer screening Z12.31 and Hematuria, unspecified type R31.9 [facility] [place] [address] [id number] [place] [address] May [facility] [place] [address] [id number] [place] [address] May Type 2 diabetes mellitus with hyperglycemia E11.65 ; Essential hypertension I10 ; Moderately severe depression F32.2 and Confusion R41.0 [place] [address] [place] [address] [id number] [address] May, [facility] HOSPITALGhostruckCONWAY [address] [id number] [place] [address] May Cerebrovascular accident (CVA), unspecified mechanism I63.9 ; Essential hypertension I10 ; Hyperlipidemia, unspecified E78.5 and Type 2 diabetes mellitus with hyperglycemia E11.65 [place] [address]100[place] [address] May, [place] [address] [id number] [address] May, [facility]OSPITALGhostruckCON[place]AY [address] [id number] [place] [address] [facility]OSPITALGhostruckCON[place]AY [address] [id number] [place] [address] May Diabetic neuropathy E11.40 and Diabetes E11.9 [facility]CaseMetrix [place] [address] [id number] [place] [address] Apr [facility] [place] [address] [id number] [place] [address] Apr Subacute maxillary sinusitis J01.00 ; Hypoglycemia associated with type 2 diabetes mellitus E11.649 and Intractable episodic headache, unspecified headache type R[address] [facility] HOSPITALLittlecast [place] [address] [id number] [place] [address] Apr Diabetic neuropathy E11.40 and Anxiety F41.9 [facility]ALSELittlecast [place] [address] [id number] [place] [address] Apr [facility] [place] [address] [id number] [place] [address] Apr Type 2 diabetes mellitus with hyperglycemia E11.65 ; Subacute maxillary sinusitis J01.00 ; Diabetic neuropathy E11.40 and Sleep apnea in adult G47.30 [place] [address] [id number] [address] Apr, [facility]OS[facility]ITALLittlecast [place] [address] [id number] [place] [address] [facility] [place] [address] [id number] [place] [address] [facility] [address] [facility]OS[facility]ITALLittlecast [place] [address] [id number] [place] [address] Apr Subacute maxillary sinusitis J01.00 [place] [address]00565100[place] [address] Apr, Right foot drop M21.371 [facility] [place] [address] [id number] [place] [address] [facility] [place] [address] [id number] [place] [address] [facility] [facility] [address]ITALLittlecast [place] [address] [id number] [place] [address] Mar Essential hypertension I10 ; Type 2 diabetes mellitus with hyperglycemia E11.65 ; Encounter for immunization Z23 ; Cocaine abuse F14.10 and Hyperlipidemia, unspecified E78.5 [facility] [place] [address] [id number] [place] [address] Mar [place] [address] [id number] [address] Mar, [facility]ITALLittle[facility] [place] [address] [id number] [place] [address] [facility] [facility]ITALLittle[facility] [place] [address] [id number] [place] [address] Feb Type 2 diabetes mellitus with hyperglycemia E11.65 and Acute right ankle pain M25.571 [facility] [place] [address] [id number] [place] [address] Feb Weight loss R63.4 and Anxiety F41.9 [place] [address] [id number] [address] Jan, [facility] [address]00565100[place] [address] Jan, [facility] [address]00565100[place] [address] Jan, [facility] [address]65100[place] [address] Jan, Diabetes E11.9 [facility] [place] [address] [id number] [place] [address] Jan Sprain of right ankle, unspecified ligament, initial encounter S93.401A [facility]OSPITALGavin [place] [address] [id number] [place] [address] Jan Essential hypertension I10 ; Anxiety F41.9 and Type 2 diabetes mellitus with hyperglycemia E11.65 [facility] [address]65100[place] [address] Jan, Diabetes E11.9 [facility] [address]00565100[place] [address] Jan, [facility] [address] [place] [address] Jan, [facility] [place] [address] [id number] [place] [address] Jan [facility] [address]00565100[place] [address] Jan, [facility] [address]00565100[place] [address] Jan, [facility] [address]00565100[place] [address] Jan, [facility] [address]00565100[place] [address] Jan, [facility] [address]65100[place] [address] Jan, Unintentional weight loss R63.4 ; Stage 2 chronic kidney disease N18.2 ; Exposure to hepatitis C Z20.5 ; Diabetic neuropathy E11.40 ; Obstructive sleep apnea syndrome G47.33 ; Essential hypertension I10 and Type 2 diabetes mellitus with hyperglycemia E11.65 [facility] [address]00565100[place] [address] Jan, [facility] [id number] [place] [address] Jan, Type 2 diabetes mellitus with hyperglycemia E11.65 ; Diabetic neuropathy E11.40 and Essential hypertension I10 [facility] [address] [place] [address] Dec, Diabetes E11.9 [facility] [address] [place] [address] Dec, [facility] [id number] [place] [address] Dec, [facility] [address] [place] [address] Dec, [facility] [id number] [place] [address] Dec, Dental examination Z01.20 [facility] [address] [place] [address] Dec, [facility] [address] [place] [address] Dec, Diabetes E11.9 [facility] [address]00565100[place] [address] Dec, Stage 2 chronic kidney disease N18.2 ; Exposure to hepatitis C Z20.5 ; Obstructive sleep apnea syndrome G47.33 and Type 2 diabetes mellitus with hyperglycemia E11.65 [facility] [address]00565100[place] [address] Dec, [facility] [place] [address] [id number] [place] [address] Dec Diabetes E11.9 and Essential hypertension I10 [facility] [address] [facility] [id number] [place] [address] Nov, Diabetes E11.9 [facility] [address] [id number] [address] Nov, Right foot pain M79.671 [facility] [address] [id number] [id number] Nov, Right foot pain M79.671 [facility] [place] [address] [id number] [place] [address] [address] [facility] [place] [address] [id number] [place] [address] Nov Diabetes E11.9 [facility] [address] [id number] [address] Nov, Dental examination Z01.[address] [facility]ITALLittlecast [place] [address] [id number] [place] [address] Nov Diabetes E11.9 ; Cocaine abuse F14.10 and Shingles (herpes zoster) polyneuropathy B02.23 [facility] [place] [address] [id number] [place] [address] Nov [facility] [address] [facility] [id number] [place] [address] October, [facility] [place] [address] [id number] [place] [address] October [facility]ALSE[facility] [place] [address] [id number] [place] [address] October Unintentional weight loss R63.[address] [facility]OS[facility]ITALK [place] [address] [id number] [place] [address] October Abscess L02.91 [facility] [place] [address] [id number] [place] [address] October Diabetes E11.9 ; Unintentional weight loss R63.4 ; History of hematuria Z87.448 and Cocaine abuse F14.[address] [facility]OS[facility]ITALK [place] [address] [id number] [place] [address] October Diabetes E11.9 [facility] [place] [address] [id number] [place] [address] October Essential hypertension I10 and Abscess L02.91 [facility] [place] [address] [id number] [place] [address] Jun [facility] [place] [address] [id number] [place] [address] May Breast cancer screening Z12.39 ; Diabetes E11.9 and Anxiety F41.9 [facility] [place] [address] [facility] [id number] [place] [address] May, Diabetes E11.9 [facility] [place] [address] [id number] [place] [address] May Diabetes E11.9 and Anemia D64.9 [facility] [place] [address] [id number] [place] [address] May Anxiety F41.9 [facility] [place] [address] [id number] [place] [address] 08 May [facility] [place] [address] [id number] [place] [address] May Dysuria R30.0 [facility] [place] [address] [id number] [place] [address] May [facility] [place] [address] [id number] [place] [address] 05 May Dysuria R30.0 and Vaginal itching L29.8 [facility] [address] [facility] [id number] [place] [address] Apr, [facility] [place] [address] [id number] [place] [address] 14 Apr Diabetes E11.9 ; Dysuria R30.0 ; Diabetic neuropathy E11.40 ; Anemia D64.9 and Vaginal discharge N89.8 [facility] [address] [id number] [address] Jun, [address]00565100[place] [id number] Jun, Anemia D64.9 ; Anxiety F41.9 ; Diabetes E11.9 and Diabetic neuropathy E11.40 [address]00565100[place] [id number] May, [facility] [address] 0949965100[place] [address] Apr, [place] [id number] [place] [id number] Apr, Anemia D64.9 ; Anxiety F41.9 ; Diabetes E11.9 and Diabetic neuropathy E11.40 [place] [id number] [place] [id number] Mar, Acute costochondritis M94.0 [place] [id number] [place] [id number] Mar, Bilateral low back pain without sciatica M54.5 and Bereavement Z63.4 [place] [id number] [place] [address] [id number] Mar, Obstructive chronic bronchitis with acute exacerbation J44.1 ; Herpes zoster without complication B02.9 and [place] N91.2 [place] [id number] [place] [id number] Mar, [place] [id number] [place] [id number] Mar, [place] [id number] [place] [address] [id number] Feb, History of recent traumatic injury of head V15.52 ; Diabetes type 2, uncontrolled 250.02 and Visual disturbance 368.9 [place] [id number] [place] [id number] Feb, History of recent traumatic injury of [...] infection 2004 Hospitalization History in rehab at [place] 2016 Hospitalization History Stroke 05/2017 Hospitalization History surgeries Hospitalization History Elevated B/S 07/2017 Hospitalization History [facility] - blood clot LRE 10/2017 Hospitalization History [facility] - R ankle clot 11/2017
--- OUTSIDE RECORDS SUMMARY | 2018-05-13 10:47 | XMS REPORT ---
Author Author CHRIS BECKWITH [facility] Address [address] [place] [address] Care Team Providers Care Laboratory Assistant Name Role Phone CHRIS BECKWITH Unavailable PROBLEMS Type Condition ICD9-CM Code FTV93-VO Code Onset Dates Condition Status SNOMED Code Problem Sleep apnea in adult G47.30 Active 24718891 Problem Moderately severe depression F32.2 Active 684221163 Problem Hypoglycemia associated with type 2 diabetes mellitus E11.649 Active 116955566 Problem PVD (peripheral vascular disease) I73.9 Active 775883096 Problem PAD (peripheral artery disease) I73.9 Active 911815906 Problem Hypoglycemia E16.2 Active 629653798 Problem Cerebrovascular accident (CVA), unspecified mechanism I63.9 Active 712979715 Problem Breast asymmetry N64.89 Active 977164237 Problem Abnormal mammogram of right breast R92.8 Active 252741771 Problem Diabetic neuropathy E11.40 Active 028998683 Problem Anxiety F41.9 Active 15903191 Problem Obstructive sleep apnea syndrome G47.33 Active 06105397 Problem Stage 2 chronic kidney disease N18.2 Active 855250094 Problem Essential hypertension I10 Active 38209313 Problem Type 2 diabetes mellitus with hyperglycemia E11.65 Active 036145116799187 Problem Cocaine abuse F14.10 Active 89000044 Problem Hyperlipidemia, unspecified E78.5 Active 62619295 ALLERGIES No Information ENCOUNTERS Encounter Location Date Diagnosis [facility] [address] [facility] [id number] [place] [address] Dec, [facility] [place] [address] [id number] [place] [address] Nov [facility] CENTERWummelbox [facility] [address] [id number] [place] [address] Nov [facility] [place] [address] [id number] [place] [address] Nov PVD (peripheral vascular disease) I73.9 ; Type 2 diabetes mellitus with hyperglycemia E11.65 and PAD (peripheral artery disease) I73.9 [facility] [place] [address] [id number] [place] [address] Nov [facility] [place] [address] [id number] [place] [address] Nov [facility] [place] [address] [id number] [place] [address] Nov [facility] [place] [address] [id number] [place] [address] October [facility] [place] [address] [id number] [place] [address] October [facility] [place] [address] [id number] [place] [address] October Type 2 diabetes mellitus with hyperglycemia E11.65 and Surgical procedure on lower extremity within past 6 months Z98.890 [facility] [place] [address] [id number] [place] [address] October [facility] [place] [address] [id number] [place] [address] October [facility] [address] [facility] [id number] [place] [address] October, [facility] [place] [address] [id number] [place] [address] October Sleep apnea in adult G47.30 [facility] [place] [address] [id number] [place] [address] October Type 2 diabetes mellitus with hyperglycemia E11.65 [facility] [place] [address] [id number] [place] [address] Sep [facility] [place] [address] [id number] [place] [address] Sep Breast asymmetry N64.89 [facility] [place] [address] [id number] [place] [address] Sep [facility] [place] [address] [id number] [place] [address] Sep Type 2 diabetes mellitus with hyperglycemia E11.65 ; Cocaine abuse F14.10 and Open wound of right great toe, subsequent encounter S91.101D [facility] [place] [address] [id number] [place] [address] Sep [facility] [place] [address] [id number] [place] [address] Aug [facility] [place] [address] [id number] [place] [address] Aug [facility] [place] [address] [id number] [place] [address] Aug Type 2 diabetes mellitus with hyperglycemia E11.65 [facility] [place] [address] [id number] [place] [address] Aug [facility] [address] [facility] [id number] [place] [address] Aug, [facility] [place] [address] [id number] [place] [address] Jul [facility] [place] [address] [id number] [place] [address] Jul Diabetic neuropathy E11.40 ; Essential hypertension I10 and Type 2 diabetes mellitus with hyperglycemia E11.65 [facility] [place] [address] [id number] [place] [address] Jul [facility] [place] [address] [id number] [place] [address] Jul [facility] [place] [address] [id number] [place] [address] Jul [facility] [place] [address] [id number] [place] [address] Jul [facility] [place] [address] [id number] [place] [address] Jul [facility] [place] [address] [id number] [place] [address] Jul Type 2 diabetes mellitus with hyperglycemia E11.65 ; Open wound of right great toe, subsequent encounter S91.101D ; Essential hypertension I10 and Diabetic neuropathy E11.[address] [facility] [address] [id number] [place] [address] Jul, [facility] [place] [address] [id number] [place] [address] Jun [facility] [place] [address] [id number] [place] [address] Jun Type 2 diabetes mellitus with hyperglycemia E11.65 [facility] [place] [address] [id number] [place] [address] Jun [facility] [place] [address] [id number] [place] [address] Jun [facility] [place] [address] [id number] [place] [address] Jun Abnormal mammogram of right breast R92.8 and Breast asymmetry N64.89 [facility] [place] [address] [id number] [place] [address] Jun [facility] [place] [address] [id number] [place] [address] Jun [facility] [place] [address] [id number] [place] [address] May Hypoglycemia E16.2 [facility] [place] [address] [id number] [place] [address] May Abnormal neurological exam R29.90 [facility] [place] [address] [id number] [place] [address] May [facility] [place] [address] [id number] [place] [address] May Type 2 diabetes mellitus with hyperglycemia E11.65 [facility] [place] [address] [id number] [place] [address] May Breast cancer screening Z12.31 and Hematuria, unspecified type R31.9 [facility] [place] [address] [id number] [place] [address] May [facility]OSPITALBiomedical InnovationONS [address] [id number] [place] [address] May Type 2 diabetes mellitus with hyperglycemia E11.65 ; Essential hypertension I10 ; Moderately severe depression F32.2 and Confusion R41.0 [place] [address] [place] [id number] [address] May, [facility] CENTERScotty GearCONWAY [address] [id number] [place] [address] May Cerebrovascular accident (CVA), unspecified mechanism I63.9 ; Essential hypertension I10 ; Hyperlipidemia, unspecified E78.5 and Type 2 diabetes mellitus with hyperglycemia E11.65 [place] [address] [address] May, [place] [address] [place] [address] [id number] [address] May, [facility] CENTERScotty GearCONWAY [address] [id number] [place] [address] May [facility] CENTERScotty GearCONWAY [address] [id number] [place] [address] May Diabetic neuropathy E11.40 and Diabetes E11.9 [facility]OSPITALFabriQate [place] [address] [id number] [place] [address] Apr [facility]OSPITALBiomedical InnovationONS [address] [id number] [place] [address] Apr Subacute maxillary sinusitis J01.00 ; Hypoglycemia associated with type 2 diabetes mellitus E11.649 and Intractable episodic headache, unspecified headache type R51 [facility]ENTERWummelbox [place] [address] [id number] [place] [address] Apr Diabetic neuropathy E11.40 and Anxiety F41.9 [facility]ITALSEWummelbox [place] [address] [id number] [place] [address] Apr [facility]OSPITALFabriQate [place] [address] [id number] [place] [address] Apr Type 2 diabetes mellitus with hyperglycemia E11.65 ; Subacute maxillary sinusitis J01.00 ; Diabetic neuropathy E11.40 and Sleep apnea in adult G47.30 [place] [address] [place] [id number] [address] Apr, [facility]ENTERWummelbox [place] [address] [id number] [place] [address] Apr [place] [address] [id number] [place] [address] Apr [facility]ENTERWummelbox [place] [address] [id number] [place] [address] Apr Subacute maxillary sinusitis J01.00 [place] [address]005[address] [address] Apr, Right foot drop M21.371 [place] [address] [id number] [place] [address] Apr [place] [address] [id number] [place] [address] Mar [facility]ENTERWummelbox [place] [address] [id number] [place] [address] Mar Essential hypertension I10 ; Type 2 diabetes mellitus with hyperglycemia E11.65 ; Encounter for immunization Z23 ; Cocaine abuse F14.10 and Hyperlipidemia, unspecified E78.5 [place] [address] [id number] [place] [address] Mar [place] [address] [place] [address] [id number] [address] Mar, [facility]ENTERWummelbox [place] [address] [id number] [place] [address] Feb [facility]ENTERWummelbox [place] [address] [id number] [place] [address] Feb Type 2 diabetes mellitus with hyperglycemia E11.65 and Acute right ankle pain M25.571 [place] [address] [id number] [place] [address] Feb Weight loss R63.4 and Anxiety F41.9 [place] [address] [place] [id number] [address] Jan, [facility] [address] [address] Jan, [facility] [address]005[address] [address] Jan, [facility] [address]65[address] [address] Jan, Diabetes E11.9 [place] [address] [id number] [place] [address] Jan Sprain of right ankle, unspecified ligament, initial encounter S93.401A [facility] CENTERGavin [place] [address] [id number] [place] [address] Jan Essential hypertension I10 ; Anxiety F41.9 and Type 2 diabetes mellitus with hyperglycemia E11.65 [facility] [address] [address] Jan, Diabetes E11.9 [facility] [address] [address] Jan, [facility] [address] [place] [address] Jan, [place] [address] [id number] [place] [address] Jan [facility] [address]65[address] [address] Jan, [facility] [address]65[address] [address] Jan, [facility] [address]65[address] [address] Jan, [facility] [address]65[address] [address] Jan, [facility] [address]00565100[place] [address] Jan, Unintentional weight loss R63.4 ; Stage 2 chronic kidney disease N18.2 ; Exposure to hepatitis C Z20.5 ; Diabetic neuropathy E11.40 ; Obstructive sleep apnea syndrome G47.33 ; Essential hypertension I10 and Type 2 diabetes mellitus with hyperglycemia E11.65 [facility] [address]65[address] [address] Jan, [facility] [id number] [place] [address] Jan, Type 2 diabetes mellitus with hyperglycemia E11.65 ; Diabetic neuropathy E11.40 and Essential hypertension I10 [facility] [address] [place] [address] Dec, Diabetes E11.9 [facility] [address] [place] [address] Dec, [facility] [id number] [place] [address] Dec, [facility] [address] [place] [address] Dec, [facility] [id number] [place] [address] Dec, Dental examination Z01.20 [facility] [address] [place] [address] Dec, [facility] [address] [place] [address] Dec, Diabetes E11.9 [facility] [address] [address] Dec, Stage 2 chronic kidney disease N18.2 ; Exposure to hepatitis C Z20.5 ; Obstructive sleep apnea syndrome G47.33 and Type 2 diabetes mellitus with hyperglycemia E11.65 [facility] [address] [address] Dec, [place] [address] [id number] [place] [address] Dec Diabetes E11.9 and Essential hypertension I10 [facility] [address] [facility] [id number] [place] [address] Nov, Diabetes E11.9 [facility] [address] [place] [address] [id number] [address] Nov, Right foot pain M79.671 [facility] [address] [id number] [address] Nov, Right foot pain M79.671 [place] [address] [id number] [place] [address] Nov Diabetes E11.9 [place] [address] [id number] [place] [address] Nov Diabetes E11.9 [facility] [address] [id number] [address] Nov, Dental examination Z01.20 [facility]ENTERWummelbox [place] [address] [id number] [place] [address] Nov Diabetes E11.9 ; Cocaine abuse F14.10 and Shingles (herpes zoster) polyneuropathy B02.23 [place] [address] [id number] [place] [address] Nov [facility] [address] [facility] [id number] [place] [address] October, [facility]ENTERWummelbox [place] [address] [id number] [place] [address] October [facility] [place] [address] [id number] [place] [address] October Unintentional weight loss R63.4 [facility] [place] [address] [id number] [place] [address] October Abscess L02.91 [facility] [place] [address] [id number] [place] [address] October Diabetes E11.9 ; Unintentional weight loss R63.4 ; History of hematuria Z87.448 and Cocaine abuse F14.10 [facility] [place] [address] [id number] [place] [address] October Diabetes E11.9 [facility] [place] [address] [id number] [place] [address] October Essential hypertension I10 and Abscess L02.91 [facility] [place] [address] [id number] [place] [address] Jun [facility] [place] [address] [id number] [place] [address] May Breast cancer screening Z12.39 ; Diabetes E11.9 and Anxiety F41.9 [facility] [place] [address] [facility] [id number] [place] [address] May, Diabetes E11.9 [facility] [place] [address] [id number] [place] [address] May Diabetes E11.9 and Anemia D64.9 [facility] [place] [address] [id number] [place] [address] May Anxiety F41.9 [facility] [place] [address] [id number] [place] [address] 08 May [facility] [place] [address] [id number] [place] [address] May Dysuria R30.0 [facility] [place] [address] [id number] [place] [address] May [facility] [place] [address] [id number] [place] [address] 05 May Dysuria R30.0 and Vaginal itching L29.8 [facility] [address] [facility] [id number] [place] [address] Apr, [facility] [place] [address] [id number] [place] [address] 14 Apr Diabetes E11.9 ; Dysuria R30.0 ; Diabetic neuropathy E11.40 ; Anemia D64.9 and Vaginal discharge N89.8 [facility] [address] 09700B00565100[place] [address] Jun, [address]00565100[place] [id number] Jun, Anemia D64.9 ; Anxiety F41.9 ; Diabetes E11.9 and Diabetic neuropathy E11.40 [address]00565100[place] [address] May, [facility] [address] 0535565100[place] [address] Apr, [place] [id number] [place] [id number] Apr, Anemia D64.9 ; Anxiety F41.9 ; Diabetes E11.9 and Diabetic neuropathy E11.40 [place] [address] [place] [id number] Mar, Acute costochondritis M94.0 [place] [address] [place] [id number] Mar, Bilateral low back pain without sciatica M54.5 and Bereavement Z63.4 [place] [address] [place] [id number] Mar, Obstructive chronic bronchitis with acute exacerbation J44.1 ; Herpes zoster without complication B02.9 and Hughes N91.2 [place] [address] [place] [id number] Mar, [place] [address] [place] [id number] Mar, [place] [address] [place] [id number] Feb, History of recent traumatic injury of head V15.52 ; Diabetes type 2, uncontrolled 250.02 and Visual disturbance 368.9 [place] [address] [place] [id number] Feb, History of recent traumatic injury of head V15.52 ; Visual disturbance 368.9 and Diabetes type 2, uncontrolled 250.02 IMMUNIZATIONS No Known Immunizations SOCIAL HISTORY Never Assessed REASON FOR VISIT PLAN OF CARE VITAL SIGNS MEDICATIONS Unknown [...] infection 2004 Hospitalization History in rehab at [place] 2016 Hospitalization History Stroke 05/2017 Hospitalization History surgeries Hospitalization History Elevated B/S 07/2017 Hospitalization History [facility] - blood clot LRE 10/2017 Hospitalization History [facility] - R ankle clot 11/2017
--- OUTSIDE RECORDS SUMMARY | 2018-05-13 10:48 | XMS REPORT ---
Author Author SAFIA [address] 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 Name Role Phone SAFIA L[address] Unavailable PROBLEMS Type Condition ICD9-CM Code CQY91-BY Code Onset Dates Condition Status SNOMED Code Problem Sleep apnea in adult G47.30 Active 88337365 Problem Moderately severe depression F32.2 Active 333008349 Problem Hypoglycemia associated with type 2 diabetes mellitus E11.649 Active 486803386 Problem PVD (peripheral vascular disease) I73.9 Active 723075398 Problem PAD (peripheral artery disease) I73.9 Active 226290465 Problem Hypoglycemia E16.2 Active 479250111 Problem Cerebrovascular accident (CVA), unspecified mechanism I63.9 Active 066290873 Problem Breast asymmetry N64.89 Active 727441381 Problem Abnormal mammogram of right breast R92.8 Active 794258570 Problem Diabetic neuropathy E11.40 Active 630840624 Problem Anxiety F41.9 Active 05893168 Problem Obstructive sleep apnea syndrome G47.33 Active 23728745 Problem Stage 2 chronic kidney disease N18.2 Active 094402822 Problem Essential hypertension I10 Active 92580839 Problem Type 2 diabetes mellitus with hyperglycemia E11.65 Active 306490763161921 Problem Cocaine abuse F14.10 Active 20763544 Problem Hyperlipidemia, unspecified E78.5 Active 52308442 ALLERGIES No Information ENCOUNTERS Encounter Location Date Diagnosis [facility] [address] [id number] [place] [address] Dec, [facility] [address] [id number] [place] [address] Nov [facility] [address] [id number] [place] [address] Nov [facility] [address] [id number] [place] [address] Nov PVD (peripheral vascular disease) I73.9 ; Type 2 diabetes mellitus with hyperglycemia E11.65 and PAD (peripheral artery disease) I73.9 [facility] [place] [address] [id number] [place] [address] Nov [facility] [place] [address] [id number] [place] [address] Nov [facility] [place] [address] [id number] [place] [address] Nov [facility] [place] [address] [id number] [place] [address] October [facility] [place] [address] [id number] [place] [address] October [facility] [place] [address] [id number] [place] [address] October Type 2 diabetes mellitus with hyperglycemia E11.65 and Surgical procedure on lower extremity within past 6 months Z98.890 [facility] [place] [address] [id number] [place] [address] October [facility] [place] [address] [id number] [place] [address] October [facility] [address] [id number] [place] [address] October, [facility] [place] [address] [id number] [place] [address] October Sleep apnea in adult G47.30 [facility] [place] [address] [id number] [place] [address] October Type 2 diabetes mellitus with hyperglycemia E11.65 [facility] [place] [address] [id number] [place] [address] Sep [facility] [place] [address] [id number] [place] [address] Sep Breast asymmetry N64.89 [facility] [place] [address] [id number] [place] [address] Sep [facility] [place] [address] [id number] [place] [address] Sep Type 2 diabetes mellitus with hyperglycemia E11.65 ; Cocaine abuse F14.10 and Open wound of right great toe, subsequent encounter S91.101D [facility] [place] [address] [id number] [place] [address] Sep [facility] [place] [address] [id number] [place] [address] Aug [facility] [place] [address] [id number] [place] [address] Aug [facility] [place] [address] [id number] [place] [address] Aug Type 2 diabetes mellitus with hyperglycemia E11.65 [facility] [place] [address] [id number] [place] [address] Aug [facility] [address] [id number] [place] [address] Aug, [facility] [place] [address] [id number] [place] [address] Jul [facility] [place] [address] [id number] [place] [address] Jul Diabetic neuropathy E11.40 ; Essential hypertension I10 and Type 2 diabetes mellitus with hyperglycemia E11.65 [facility] [place] [address] [id number] [place] [address] Jul [facility] [place] [address] [id number] [place] [address] Jul [facility] [place] [address] [id number] [place] [address] Jul [facility] [place] [address] [id number] [place] [address] Jul [facility] [place] [address] [id number] [place] [address] Jul [facility] [place] [address] [id number] [place] [address] Jul Type 2 diabetes mellitus with hyperglycemia E11.65 ; Open wound of right great toe, subsequent encounter S91.101D ; Essential hypertension I10 and Diabetic neuropathy E11.[address] [facility] [address] [id number] [place] [address] 05 Jul, 2017 [facility] [place] [address] [id number] [place] [address] Jun [facility] [place] [address] [id number] [place] [address] Jun Type 2 diabetes mellitus with hyperglycemia E11.65 [facility] [place] [address] [id number] [place] [address] Jun [facility] [place] [address] [id number] [place] [address] Jun [facility] [place] [address] [id number] [place] [address] Jun Abnormal mammogram of right breast R92.8 and Breast asymmetry N64.89 [facility] [place] [address] [id number] [place] [address] Jun [facility] [place] [address] [id number] [place] [address] Jun [facility] [place] [address] [id number] [place] [address] May Hypoglycemia E16.2 [facility] [place] [address] [id number] [place] [address] May Abnormal neurological exam R29.90 [facility] [place] [address] [id number] [place] [address] May [facility] [place] [address] [id number] [place] [address] May Type 2 diabetes mellitus with hyperglycemia E11.65 [facility] [place] [address] [id number] [place] [address] May Breast cancer screening Z12.31 and Hematuria, unspecified type R31.9 [facility] [place] [address] [id number] [place] [address] May [facility] [place] [address] [id number] [place] [address] May Type 2 diabetes mellitus with hyperglycemia E11.65 ; Essential hypertension I10 ; Moderately severe depression F32.2 and Confusion R41.0 [facility] [address] [id number] [place] [address] May, [facility] [place] [address] [id number] [place] [address] May Cerebrovascular accident (CVA), unspecified mechanism I63.9 ; Essential hypertension I10 ; Hyperlipidemia, unspecified E78.5 and Type 2 diabetes mellitus with hyperglycemia E11.65 [place] [address] [address] May, [place] [address] [id number] [address] May, [facility] [place] [address] [id number] [place] [address] May [facility] [address] [id number] [place] [address] May Diabetic neuropathy E11.40 and Diabetes E11.9 [facility] [address] [id number] [place] [address] Apr [facility]ITALBrowserlingONS [address] [id number] [place] [address] Apr Subacute maxillary sinusitis J01.00 ; Hypoglycemia associated with type 2 diabetes mellitus E11.649 and Intractable episodic headache, unspecified headache type R51 [facility] [address] [id number] [place] [address] Apr Diabetic neuropathy E11.40 and Anxiety F41.9 [facility] [address] [id number] [place] [address] Apr [facility]Browser[facility]ONS [address] [id number] [place] [address] Apr Type 2 diabetes mellitus with hyperglycemia E11.65 ; Subacute maxillary sinusitis J01.00 ; Diabetic neuropathy E11.40 and Sleep apnea in adult G47.30 [facility] [address] [id number] [place] [address] Apr, [facility] [address] [id number] [place] [address] Apr [facility] [place] [address] [id number] [place] [address] Apr [facility] [place] [address] [id number] [place] [address] Apr Subacute maxillary sinusitis J01.00 [place] [address], [place] [address] Apr, Right foot drop M21.371 [facility] Now [place] [address] [id number] [place] [address] Apr [facility] [place] [address] [id number] [place] [address] Mar [facility] [place] [address] [id number] [place] [address] Mar Essential hypertension I10 ; Type 2 diabetes mellitus with hyperglycemia E11.65 ; Encounter for immunization Z23 ; Cocaine abuse F14.10 and Hyperlipidemia, unspecified E78.5 [facility] [place] [address] [id number] [place] [address] Mar [place] [address] [id number] [place] [address] Mar, [facility]ITALSendtoNewsGavin [place] [address] [id number] [place] [address] Feb [facility] [place] [address] [id number] [place] [address] Feb Type 2 diabetes mellitus with hyperglycemia E11.65 and Acute right ankle pain M25.571 [facility] [place] [address] [id number] [place] [address] Feb Weight loss R63.4 and Anxiety F41.9 [place] [address] [id number] [address] Jan, [facility] [address], [place] [address] Jan, [facility] [address], [place] [address] Jan, [facility] [address], [place] [address] Jan, Diabetes E11.9 [facility] MAN [address] [id number] [place] [address] Jan Sprain of right ankle, unspecified ligament, initial encounter S93.401A [facility] MAN [address] [id number] [place] [address] Jan Essential hypertension I10 ; Anxiety F41.9 and Type 2 diabetes mellitus with hyperglycemia E11.65 [facility] [address]100[place], [place] [address] Jan, Diabetes E11.9 [facility] [address]005[address], [place] [address] Jan, [facility] [address] [place] [address] Jan, [facility] [place] [address] [id number] [place] [address] Jan [facility] [address]005[address]100[place], [place] [address] Jan, [facility] [address]100[place], [place] [address] Jan, [facility] [address] [place] [address] Jan, [facility] [address]005[address]100[place], [place] [address] Jan, [facility] [address]65100[place], [place] [address] Jan, Unintentional weight loss R63.4 ; Stage 2 chronic kidney disease N18.2 ; Exposure to hepatitis C Z20.5 ; Diabetic neuropathy E11.40 ; Obstructive sleep apnea syndrome G47.33 ; Essential hypertension I10 and Type 2 diabetes mellitus with hyperglycemia E11.65 [facility] [address]65[address], [place] [address] Jan, [facility] [id number] [place] [address] Jan, Type 2 diabetes mellitus with hyperglycemia E11.65 ; Diabetic neuropathy E11.40 and Essential hypertension I10 [facility] [id number] [place] [address] Dec, Diabetes E11.9 [facility] [address] [place] [address] Dec, [facility] [id number] [place] [address] Dec, [facility] [id number] [place] [address] Dec, [facility] [address] [place] [address] Dec, Dental examination Z01.20 [facility] [address]005[address]100[place], [place] [address] Dec, [facility] [address] [place] [address] Dec, Diabetes E11.9 [facility] [address]00565100[place], [place] [address] Dec, Stage 2 chronic kidney disease N18.2 ; Exposure to hepatitis C Z20.5 ; Obstructive sleep apnea syndrome G47.33 and Type 2 diabetes mellitus with hyperglycemia E11.65 [facility] [address]00565100[place], [place] [address] Dec, [address] [id number] [place] [address] Dec Diabetes E11.9 and Essential hypertension I10 [facility] [address] [id number] [place] [address] Nov, Diabetes E11.9 [facility] [address] [id number] [place] [address] Nov, Right foot pain M79.671 [facility] [address] [id number] [id number] Nov, Right foot pain M79.671 [facility] [place] [address] [id number] [place] [address] Nov Diabetes E11.9 [facility] [place] [address] [id number] [place] [address] Nov Diabetes E11.9 [facility] [address] [id number] [id number] Nov, Dental examination Z01.20 [facility] [place] [address] [id number] [place] [address] Nov Diabetes E11.9 ; Cocaine abuse F14.10 and Shingles (herpes zoster) polyneuropathy B02.23 [facility] [place] [address] [id number] [place] [address] Nov [place] [address] [id number] [place] [address] October, [facility] [place] [address] [id number] [place] [address] October [facility] [place] [address] [id number] [place] [address] October Unintentional weight loss R63.4 [facility] [place] [address] [id number] [place] [address] October Abscess L02.91 [facility] [place] [address] [id number] [place] [address] October Diabetes E11.9 ; Unintentional weight loss R63.4 ; History of hematuria Z87.448 and Cocaine abuse F14.10 [facility] [place] [address] [id number] [place] [address] October Diabetes E11.9 [facility] [place] [address] [id number] [place] [address] October Essential hypertension I10 and Abscess L02.91 [facility] [place] [address] [id number] [place] [address] Jun [facility] [place] [address] [id number] [place] [address] May Breast cancer screening Z12.39 ; Diabetes E11.9 and Anxiety F41.9 [facility] [address] [id number] [place] [id number] 16 May, 2016 Diabetes E11.9 [facility] [place] [address] [id number] [place] [address] 15 May Diabetes E11.9 and Anemia D64.9 [facility] [place] [address] [id number] [place] [address] 14 May Anxiety F41.9 [facility] [place] [address] [id number] [place] [address] 08 May [facility] [place] [address] [id number] [place] [address] May Dysuria R30.0 [facility] [place] [address] [id number] [place] [address] 06 May [facility] [place] [address] [id number] [place] [address] 05 May Dysuria R30.0 and Vaginal itching L29.8 [facility] [address] [id number] [place] [address] Apr, [facility] [place] [address] [id number] [place] [address] 14 Apr Diabetes E11.9 ; Dysuria R30.0 ; Diabetic neuropathy E11.40 ; Anemia D64.9 and Vaginal discharge N89.8 [facility] [address] [id number] [place] [address] Jun, [address]00565[address] [id number] Jun, Anemia D64.9 ; Anxiety F41.9 ; Diabetes E11.9 and Diabetic neuropathy E11.40 [address]65[address] [id number] May, [facility] [address] [address] Apr, [place] [id number] [place] [id number] Apr, Anemia D64.9 ; Anxiety F41.9 ; Diabetes E11.9 and Diabetic neuropathy E11.40 [place] [address] [place] [id number] Mar, Acute costochondritis M94.0 [place] [address] [place] [id number] Mar, Bilateral low back pain without sciatica M54.5 and Bereavement Z63.[address] [id number] Mar, Obstructive chronic bronchitis with acute exacerbation J44.1 ; Herpes zoster without complication B02.9 and [place] N91.2 [place] [address] [place] [id number] Mar, [place] [address] [place] [id number] Mar, [place] [address] [place] [id number] Feb, History of recent traumatic injury of head V15.52 ; Diabetes type 2, uncontrolled 250.02 and Visual disturbance 368.9 [place] [place] [address] [place] [id number] Feb, History of recent traumatic injury of head V15.52 ; Visual disturbance 368.9 and Diabetes type 2, uncontrolled 250.02 IMMUNIZATIONS No Known Immunizations SOCIAL HISTORY Never Assessed REASON FOR VISIT PLAN OF CARE VITAL SIGNS MEDICATIONS Unknown Medications RESULTS No Results PROCEDURES Procedure Date Ordered Result Body Site SLEEP STUDY ([facility]) 2017-10-21 N/A INSTRUCTIONS MEDICATIONS ADMINISTERED No Known Medications MEDICAL [...] infection 2004 Hospitalization History in rehab at [place] 2016 Hospitalization History Stroke 05/2017 Hospitalization History surgeries Hospitalization History Elevated B/S 07/2017 Hospitalization History [facility] - blood clot LRE 10/2017 Hospitalization History [facility] - R ankle clot 11/2017
--- OUTSIDE RECORDS SUMMARY | 2018-05-13 10:48 | XMS REPORT ---
Author Author CHRIS BECKWITH [facility] Address [address] [place] [address] Care Team Providers Care Med Admin Name Role Phone CHRIS BECKWITH Unavailable PROBLEMS Type Condition ICD9-CM Code PFL20-HB Code Onset Dates Condition Status SNOMED Code Problem Sleep apnea in adult G47.30 Active 60039453 Problem Moderately severe depression F32.2 Active 345507444 Problem Hypoglycemia associated with type 2 diabetes mellitus E11.649 Active 205063442 Problem PVD (peripheral vascular disease) I73.9 Active 882463673 Problem PAD (peripheral artery disease) I73.9 Active 814527767 Problem Hypoglycemia E16.2 Active 655446100 Problem Cerebrovascular accident (CVA), unspecified mechanism I63.9 Active 121977951 Problem Breast asymmetry N64.89 Active 252299854 Problem Abnormal mammogram of right breast R92.8 Active 218438722 Problem Diabetic neuropathy E11.40 Active 839137686 Problem Anxiety F41.9 Active 53552483 Problem Obstructive sleep apnea syndrome G47.33 Active 53211193 Problem Stage 2 chronic kidney disease N18.2 Active 981850052 Problem Essential hypertension I10 Active 50739424 Problem Type 2 diabetes mellitus with hyperglycemia E11.65 Active 148125222869493 Problem Cocaine abuse F14.10 Active 45028061 Problem Hyperlipidemia, unspecified E78.5 Active 51505026 ALLERGIES No Information ENCOUNTERS Encounter Location Date Diagnosis [facility] [address] [facility] [id number] [place] [address] Dec, [facility] [place] [address] [id number] [place] [address] Nov [facility] [address] [id number] [place] [address] Nov [facility] [place] [address] [id number] [place] [address] Nov PVD (peripheral vascular disease) I73.9 ; Type 2 diabetes mellitus with hyperglycemia E11.65 and PAD (peripheral artery disease) I73.9 [facility] [place] [address] [id number] [place] [address] Nov [facility] [place] [address] [id number] [place] [address] Nov [facility] [place] [address] [id number] [place] [address] Nov [facility] [place] [address] [id number] [place] [address] October [facility] [place] [address] [id number] [place] [address] October [facility] [place] [address] [id number] [place] [address] October Type 2 diabetes mellitus with hyperglycemia E11.65 and Surgical procedure on lower extremity within past 6 months Z98.890 [facility] [place] [address] [id number] [place] [address] October [facility] [place] [address] [id number] [place] [address] October [facility] [address] [facility] [id number] [place] [address] October, [facility] [place] [address] [id number] [place] [address] October Sleep apnea in adult G47.30 [facility] [place] [address] [id number] [place] [address] October Type 2 diabetes mellitus with hyperglycemia E11.65 [facility] [place] [address] [id number] [place] [address] Sep [facility] [place] [address] [id number] [place] [address] Sep Breast asymmetry N64.89 [facility] [place] [address] [id number] [place] [address] Sep [facility] [place] [address] [id number] [place] [address] Sep Type 2 diabetes mellitus with hyperglycemia E11.65 ; Cocaine abuse F14.10 and Open wound of right great toe, subsequent encounter S91.101D [facility] [place] [address] [id number] [place] [address] Sep [facility] [place] [address] [id number] [place] [address] Aug [facility] [place] [address] [id number] [place] [address] Aug [facility] [place] [address] [id number] [place] [address] Aug Type 2 diabetes mellitus with hyperglycemia E11.65 [facility] [place] [address] [id number] [place] [address] Aug [facility] [address] [facility] [id number] [place] [address] Aug, [facility] [place] [address] [id number] [place] [address] Jul [facility] [place] [address] [id number] [place] [address] Jul Diabetic neuropathy E11.40 ; Essential hypertension I10 and Type 2 diabetes mellitus with hyperglycemia E11.65 [facility] [place] [address] [id number] [place] [address] Jul [facility] [place] [address] [id number] [place] [address] Jul [facility] [place] [address] [id number] [place] [address] Jul [facility] [place] [address] [id number] [place] [address] Jul [facility] [place] [address] [id number] [place] [address] Jul [facility] [place] [address] [id number] [place] [address] Jul Type 2 diabetes mellitus with hyperglycemia E11.65 ; Open wound of right great toe, subsequent encounter S91.101D ; Essential hypertension I10 and Diabetic neuropathy E11.[address] [facility] [address] [id number] [place] [address] Jul, [facility] [place] [address] [id number] [place] [address] Jun [facility] [place] [address] [id number] [place] [address] Jun Type 2 diabetes mellitus with hyperglycemia E11.65 [facility] [place] [address] [id number] [place] [address] Jun [facility] [place] [address] [id number] [place] [address] Jun [facility] [place] [address] [id number] [place] [address] Jun Abnormal mammogram of right breast R92.8 and Breast asymmetry N64.89 [facility] [place] [address] [id number] [place] [address] Jun [facility] [place] [address] [id number] [place] [address] Jun [facility] [place] [address] [id number] [place] [address] May Hypoglycemia E16.2 [facility] [place] [address] [id number] [place] [address] May Abnormal neurological exam R29.90 [facility] [place] [address] [id number] [place] [address] May [facility] [place] [address] [id number] [place] [address] May Type 2 diabetes mellitus with hyperglycemia E11.65 [facility] [place] [address] [id number] [place] [address] May Breast cancer screening Z12.31 and Hematuria, unspecified type R31.9 [facility] [place] [address] [id number] [place] [address] May [facility] [address] [id number] [place] [address] May Type 2 diabetes mellitus with hyperglycemia E11.65 ; Essential hypertension I10 ; Moderately severe depression F32.2 and Confusion R41.0 [place] [address] [id number] [address] May, [facility] [address] [id number] [place] [address] May Cerebrovascular accident (CVA), unspecified mechanism I63.9 ; Essential hypertension I10 ; Hyperlipidemia, unspecified E78.5 and Type 2 diabetes mellitus with hyperglycemia E11.65 [place] [address] [address] May, [place] [address] [id number] [address] May, [facility] [address] [id number] [place] [address] May [facility] [address] [id number] [place] [address] May Diabetic neuropathy E11.40 and Diabetes E11.9 [facility] [place] [address] [id number] [place] [address] Apr [facility] [address] [id number] [place] [address] Apr Subacute maxillary sinusitis J01.00 ; Hypoglycemia associated with type 2 diabetes mellitus E11.649 and Intractable episodic headache, unspecified headache type R51 [facility] [place] [address] [id number] [place] [address] Apr Diabetic neuropathy E11.40 and Anxiety F41.9 [facility] [place] [address] [id number] [place] [address] Apr [facility] [place] [address] [id number] [place] [address] Apr Type 2 diabetes mellitus with hyperglycemia E11.65 ; Subacute maxillary sinusitis J01.00 ; Diabetic neuropathy E11.40 and Sleep apnea in adult G47.30 [place] [address] [id number] [place] [address] Apr, [facility] [place] [address] [id number] [place] [address] Apr [facility] [place] [address] [id number] [place] [address] Apr [facility] [place] [address] [id number] [place] [address] Apr Subacute maxillary sinusitis J01.00 [place] [address] [address] Apr, Right foot drop M21.371 [facility] [place] [address] [id number] [place] [address] Apr [facility] [place] [address] [id number] [place] [address] Mar [facility] [place] [address] [id number] [place] [address] Mar Essential hypertension I10 ; Type 2 diabetes mellitus with hyperglycemia E11.65 ; Encounter for immunization Z23 ; Cocaine abuse F14.10 and Hyperlipidemia, unspecified E78.5 [facility] [place] [address] [id number] [place] [address] Mar [place] [address] [id number] [address] Mar, [facility] [place] [address] [id number] [place] [address] Feb [facility] [place] [address] [id number] [place] [address] Feb Type 2 diabetes mellitus with hyperglycemia E11.65 and Acute right ankle pain M25.571 [facility] [place] [address] [id number] [place] [address] Feb Weight loss R63.4 and Anxiety F41.9 [place] [address] [id number] [address] Jan, [facility] [address] [address] Jan, [facility] [address], [place] [address] Jan, [facility] [address], [place] [address] Jan, Diabetes E11.9 [facility] [address] [id number] [place] [address] Jan Sprain of right ankle, unspecified ligament, initial encounter S93.401A [facility] [place] [address] [id number] [place] [address] Jan Essential hypertension I10 ; Anxiety F41.9 and Type 2 diabetes mellitus with hyperglycemia E11.65 [facility] [address] [address] Jan, Diabetes E11.9 [facility] [address], [place] [address] Jan, [facility] [address] [place] [address] Jan, [facility] [place] [address] [id number] [place] [address] Jan [facility] [address] [address] Jan, [facility] [address], [place] [address] Jan, [facility] [address], [place] [address] Jan, [facility] [address], [place] [address] Jan, [facility] [address], [place] [address] Jan, Unintentional weight loss R63.4 ; Stage 2 chronic kidney disease N18.2 ; Exposure to hepatitis C Z20.5 ; Diabetic neuropathy E11.40 ; Obstructive sleep apnea syndrome G47.33 ; Essential hypertension I10 and Type 2 diabetes mellitus with hyperglycemia E11.65 [facility] [address] [address] Jan, [facility] [id number] [place] [address] Jan, Type 2 diabetes mellitus with hyperglycemia E11.65 ; Diabetic neuropathy E11.40 and Essential hypertension I10 [facility] [address] [place] [address] Dec, Diabetes E11.9 [facility] [address] [place] [address] Dec, [facility] [id number] [place] [address] Dec, [facility] [address] [place] [address] Dec, [facility] [id number] [place] [address] Dec, Dental examination Z01.20 [facility] [address] [place] [address] Dec, [facility] [address] [place] [address] Dec, Diabetes E11.9 [facility] [address], [place] [address] Dec, Stage 2 chronic kidney disease N18.2 ; Exposure to hepatitis C Z20.5 ; Obstructive sleep apnea syndrome G47.33 and Type 2 diabetes mellitus with hyperglycemia E11.65 [facility] [address] [address] Dec, [facility] [place] [address] [id number] [place] [address] Dec Diabetes E11.9 and Essential hypertension I10 [facility] [address] [facility] [id number] [place] [address] Nov, Diabetes E11.9 [facility] [address] [id number] [address] Nov, Right foot pain M79.671 [facility] [address] [id number] [place] [address] Nov, Right foot pain M79.671 [facility] [place] [address] [id number] [place] [address] Nov Diabetes E11.9 [facility] [place] [address] [id number] [place] [address] Nov Diabetes E11.9 [facility] [address] [id number] [address] Nov, Dental examination Z01.20 [facility] [place] [address] [id number] [place] [address] Nov Diabetes E11.9 ; Cocaine abuse F14.10 and Shingles (herpes zoster) polyneuropathy B02.23 [facility] [place] [address] [id number] [place] [address] Nov [facility] [address] [facility] [id number] [place] [address] October, [facility] [place] [address] [id number] [place] [address] October [facility] [place] [address] [id number] [place] [address] October Unintentional weight loss R63.4 [facility] [place] [address] [id number] [place] [address] October Abscess L02.91 [facility] [place] [address] [id number] [place] [address] October Diabetes E11.9 ; Unintentional weight loss R63.4 ; History of hematuria Z87.448 and Cocaine abuse F14.10 [facility] [place] [address] [id number] [place] [address] October Diabetes E11.9 [facility] [place] [address] [id number] [place] [address] October Essential hypertension I10 and Abscess L02.91 [facility] [place] [address] [id number] [place] [address] Jun [facility] [place] [address] [id number] [place] [address] May Breast cancer screening Z12.39 ; Diabetes E11.9 and Anxiety F41.9 [facility] [place] [address] [facility] [id number] [place] [address] May, Diabetes E11.9 [facility] [place] [address] [id number] [place] [address] May Diabetes E11.9 and Anemia D64.9 [facility] [place] [address] [id number] [place] [address] May Anxiety F41.9 [facility] [place] [address] [id number] [place] [address] 08 May [facility] [place] [address] [id number] [place] [address] May Dysuria R30.0 [facility] [place] [address] [id number] [place] [address] May [facility] [place] [address] [id number] [place] [address] 05 May Dysuria R30.0 and Vaginal itching L29.8 [facility] [address] [facility] [id number] [place] [address] Apr, [facility] [place] [address] [id number] [place] [address] 14 Apr Diabetes E11.9 ; Dysuria R30.0 ; Diabetic neuropathy E11.40 ; Anemia D64.9 and Vaginal discharge N89.8 [facility] [address] [id number] [address] Jun, [address]65100[place] [address] Jun, Anemia D64.9 ; Anxiety F41.9 ; Diabetes E11.9 and Diabetic neuropathy E11.40 [address]65100[place] [id number] May, [facility] [address] [id number], [place] [address] Apr, [place] [id number] [place] [id number] Apr, Anemia D64.9 ; Anxiety F41.9 ; Diabetes E11.9 and Diabetic neuropathy E11.40 [place] [id number] [place] [id number] Mar, Acute costochondritis M94.0 [place] [id number] [place] [id number] Mar, Bilateral low back pain without sciatica M54.5 and Bereavement Z63.4 [place] [address] [place] [id number] Mar, Obstructive chronic bronchitis with acute exacerbation J44.1 ; Herpes zoster without complication B02.9 and [place] N91.2 [place] [address] [place] [id number] Mar, [place] [id number] [place] [address] [id number] Mar, [place] [id number] [place] [id number] Feb, History of recent traumatic injury of head V15.52 ; Diabetes type 2, uncontrolled 250.02 and Visual disturbance 368.9 [place] [address] [place] [id number] Feb, History of recent traumatic injury of head V15.52 ; Visual disturbance 368.9 and Diabetes type 2, uncontrolled 250.02 IMMUNIZATIONS No Known Immunizations SOCIAL HISTORY Never Assessed REASON FOR VISIT Refill request PLAN OF CARE VITAL SIGNS MEDICATIONS Medication Instructions Dosage Frequency Start Date End Date Duration Status Metformin HCl 850 MG Orally Once a day 1 tablet with meals 24h 30 days Active RESULTS No Results PROCEDURES No Known [...] infection 2004 Hospitalization History in rehab at [facility] 2016 Hospitalization History Stroke 05/2017 Hospitalization History surgeries Hospitalization History Elevated B/S 07/2017 Hospitalization History [facility] - blood clot LRE 10/2017 Hospitalization History [facility] - R ankle clot 11/2017
--- OUTSIDE RECORDS SUMMARY | 2018-05-13 10:49 | XMS REPORT ---
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 Name Role Phone CHRIS BECKWITH Unavailable PROBLEMS Type Condition ICD9-CM Code JMC23-DF Code Onset Dates Condition Status SNOMED Code Problem Sleep apnea in adult G47.30 Active 77026963 Problem Moderately severe depression F32.2 Active 020590754 Problem Hypoglycemia associated with type 2 diabetes mellitus E11.649 Active 398356397 Problem PVD (peripheral vascular disease) I73.9 Active 164518805 Problem PAD (peripheral artery disease) I73.9 Active 426127383 Problem Hypoglycemia E16.2 Active 497032350 Problem Cerebrovascular accident (CVA), unspecified mechanism I63.9 Active 735787779 Problem Breast asymmetry N64.89 Active 247540371 Problem Abnormal mammogram of right breast R92.8 Active 954653103 Problem Diabetic neuropathy E11.40 Active 913836548 Problem Anxiety F41.9 Active 99324664 Problem Obstructive sleep apnea syndrome G47.33 Active 35723328 Problem Stage 2 chronic kidney disease N18.2 Active 477653596 Problem Essential hypertension I10 Active 26812923 Problem Type 2 diabetes mellitus with hyperglycemia E11.65 Active 138232884521052 Problem Cocaine abuse F14.10 Active 38461167 Problem Hyperlipidemia, unspecified E78.5 Active 10127611 ALLERGIES No Information ENCOUNTERS Encounter Location Date Diagnosis [facility] [address] [facility]NOTE 3] [id number] [place] [address] Dec, [facility] [place] [address] [id number] [place] [address] Nov [facility] [address] [id number] [place] [address] Nov [facility] [place] [address] [id number] [place] [address] Nov PVD (peripheral vascular disease) I73.9 ; Type 2 diabetes mellitus with hyperglycemia E11.65 and PAD (peripheral artery disease) I73.9 [facility] [place] [address] [id number] [place] [address] Nov [facility] [place] [address] [id number] [place] [address] Nov [facility] [place] [address] [id number] [place] [address] Nov [facility] [place] [address] [id number] [place] [address] October [facility] [place] [address] [id number] [place] [address] October [facility] [place] [address] [id number] [place] [address] October Type 2 diabetes mellitus with hyperglycemia E11.65 and Surgical procedure on lower extremity within past 6 months Z98.890 [facility] [place] [address] [id number] [place] [address] October [facility] [place] [address] [id number] [place] [address] October [facility] [address] [facility]NOTE 3] [id number] [place] [address] October, [facility] [place] [address] [id number] [place] [address] October Sleep apnea in adult G47.30 [facility] [place] [address] [id number] [place] [address] October Type 2 diabetes mellitus with hyperglycemia E11.65 [facility] [place] [address] [id number] [place] [address] Sep [facility] [place] [address] [id number] [place] [address] Sep Breast asymmetry N64.89 [facility] [place] [address] [id number] [place] [address] Sep [facility] [place] [address] [id number] [place] [address] Sep Type 2 diabetes mellitus with hyperglycemia E11.65 ; Cocaine abuse F14.10 and Open wound of right great toe, subsequent encounter S91.101D [facility] [place] [address] [id number] [place] [address] Sep [facility] [place] [address] [id number] [place] [address] Aug [facility] [place] [address] [id number] [place] [address] Aug [facility] [place] [address] [id number] [place] [address] Aug Type 2 diabetes mellitus with hyperglycemia E11.65 [facility] [place] [address] [id number] [place] [address] Aug [facility] [address] [facility]NOTE 3] [id number] [place] [address] Aug, [facility] [place] [address] [id number] [place] [address] Jul [facility] [place] [address] [id number] [place] [address] Jul Diabetic neuropathy E11.40 ; Essential hypertension I10 and Type 2 diabetes mellitus with hyperglycemia E11.65 [facility] [place] [address] [id number] [place] [address] Jul [facility] [place] [address] [id number] [place] [address] Jul [facility] [place] [address] [id number] [place] [address] Jul [facility] [place] [address] [id number] [place] [address] Jul [facility] [place] [address] [id number] [place] [address] Jul [facility] [place] [address] [id number] [place] [address] Jul Type 2 diabetes mellitus with hyperglycemia E11.65 ; Open wound of right great toe, subsequent encounter S91.101D ; Essential hypertension I10 and Diabetic neuropathy E11.[address] [facility] [address] [id number] [place] [address] Jul, [facility] [place] [address] [id number] [place] [address] Jun [facility] [place] [address] [id number] [place] [address] Jun Type 2 diabetes mellitus with hyperglycemia E11.65 [facility] [place] [address] [id number] [place] [address] Jun [facility] [place] [address] [id number] [place] [address] Jun [facility] [place] [address] [id number] [place] [address] Jun Abnormal mammogram of right breast R92.8 and Breast asymmetry N64.89 [facility] [place] [address] [id number] [place] [address] Jun [facility] [place] [address] [id number] [place] [address] Jun [facility] [place] [address] [id number] [place] [address] May Hypoglycemia E16.2 [facility] [place] [address] [id number] [place] [address] May Abnormal neurological exam R29.90 [facility] [place] [address] [id number] [place] [address] May [facility] [place] [address] [id number] [place] [address] May Type 2 diabetes mellitus with hyperglycemia E11.65 [facility] [place] [address] [id number] [place] [address] May Breast cancer screening Z12.31 and Hematuria, unspecified type R31.9 [facility] [place] [address] [id number] [place] [address] May [facility] [address] [id number] [place] [address] May Type 2 diabetes mellitus with hyperglycemia E11.65 ; Essential hypertension I10 ; Moderately severe depression F32.2 and Confusion R41.0 [place] [address] [id number] [place] [address] May, [facility] Health[facility] [address] [id number] [place] [address] May Cerebrovascular accident (CVA), unspecified mechanism I63.9 ; Essential hypertension I10 ; Hyperlipidemia, unspecified E78.5 and Type 2 diabetes mellitus with hyperglycemia E11.65 [place] [address], [place] [address] May, [place] [address] [id number], [place] [address] May, [facility] Health[facility] [address] [id number] [place] [address] May [facility] Health[facility] [address] [id number] [place] [address] May Diabetic neuropathy E11.40 and Diabetes E11.9 [facility] [place] [address] [id number] [place] [address] Apr [facility] [address] [id number] [place] [address] Apr Subacute maxillary sinusitis J01.00 ; Hypoglycemia associated with type 2 diabetes mellitus E11.649 and Intractable episodic headache, unspecified headache type R51 [facility] [place] [address] [id number] [place] [address] Apr Diabetic neuropathy E11.40 and Anxiety F41.9 [facility] [place] [address] [id number] [place] [address] Apr [facility] [place] [address] [id number] [place] [address] Apr Type 2 diabetes mellitus with hyperglycemia E11.65 ; Subacute maxillary sinusitis J01.00 ; Diabetic neuropathy E11.40 and Sleep apnea in adult G47.30 [place] [address] [id number] [place] [address] Apr, [facility] [place] [address] [id number] [place] [address] Apr [facility] [place] [address] [id number] [place] [address] Apr [facility] [place] [address] [id number] [place] [address] Apr Subacute maxillary sinusitis J01.00 [place] [address], [place] [address] Apr, Right foot drop M21.371 [facility] [place] [address] [id number] [place] [address] Apr [facility] [place] [address] [id number] [place] [address] Mar [facility] [place] [address] [id number] [place] [address] Mar Essential hypertension I10 ; Type 2 diabetes mellitus with hyperglycemia E11.65 ; Encounter for immunization Z23 ; Cocaine abuse F14.10 and Hyperlipidemia, unspecified E78.5 [facility] [place] [address] [id number] [place] [address] Mar [place] [address] [id number], [place] [address] Mar, [facility] [place] [address] [id number] [place] [address] Feb [facility] [place] [address] [id number] [place] [address] Feb Type 2 diabetes mellitus with hyperglycemia E11.65 and Acute right ankle pain M25.571 [facility] [place] [address] [id number] [place] [address] Feb Weight loss R63.4 and Anxiety F41.9 [place] [address] [id number], [place] [address] Jan, [facility] [address], [place] [address] Jan, [facility] [address], [place] [address] Jan, [facility] [address], [place] [address] Jan, Diabetes E11.9 [facility] [address] [id number] [place] [address] Jan Sprain of right ankle, unspecified ligament, initial encounter S93.401A [facility] [place] [address] [id number] [place] [address] Jan Essential hypertension I10 ; Anxiety F41.9 and Type 2 diabetes mellitus with hyperglycemia E11.65 [facility] [address], [place] [address] Jan, Diabetes E11.9 [facility] [address], [place] [address] Jan, [facility] [address] [place] [address] Jan, [facility] [place] [address] [id number] [place] [address] Jan [facility] [address], [place] [address] Jan, [facility] [address], [place] [address] Jan, [facility] [address], [place] [address] Jan, [facility] [address], [place] [address] Jan, [facility] [address], [place] [address] Jan, Unintentional weight loss R63.4 ; Stage 2 chronic kidney disease N18.2 ; Exposure to hepatitis C Z20.5 ; Diabetic neuropathy E11.40 ; Obstructive sleep apnea syndrome G47.33 ; Essential hypertension I10 and Type 2 diabetes mellitus with hyperglycemia E11.65 [facility] [address], [place] [address] Jan, [facility] [id number] [place] [address] Jan, Type 2 diabetes mellitus with hyperglycemia E11.65 ; Diabetic neuropathy E11.40 and Essential hypertension I10 [facility] [address] [place] [address] Dec, Diabetes E11.9 [facility] [address] [place] [address] Dec, [facility] [id number] [place] [address] Dec, [facility] [address] [place] [address] Dec, [facility] [id number] [place] [address] Dec, Dental examination Z01.20 [facility] [address] [place] [address] Dec, [facility] [address] [place] [address] Dec, Diabetes E11.9 [facility] [address], [place] [address] Dec, Stage 2 chronic kidney disease N18.2 ; Exposure to hepatitis C Z20.5 ; Obstructive sleep apnea syndrome G47.33 and Type 2 diabetes mellitus with hyperglycemia E11.65 [facility] [address], [place] [address] Dec, [facility] [place] [address] [id number] [place] [address] Dec Diabetes E11.9 and Essential hypertension I10 [facility] [address] [facility]NOTE 3] [id number] [place] [address] Nov, Diabetes E11.9 [facility] [address] [id number] [address] Nov, Right foot pain M79.671 [facility] [address] [id number] [address] Nov, Right foot pain M79.671 [facility] [place] [address] [id number] [place] [address] Nov Diabetes E11.9 [facility] [place] [address] [id number] [place] [address] Nov Diabetes E11.9 [facility] [address] [id number] [place] [address] Nov, Dental examination Z01.20 [facility] [place] [address] [id number] [place] [address] Nov Diabetes E11.9 ; Cocaine abuse F14.10 and Shingles (herpes zoster) polyneuropathy B02.23 [facility] [place] [address] [id number] [place] [address] Nov [facility] [address] [facility]NOTE 3] [id number] [place] [address] October, [facility] [place] [address] [id number] [place] [address] October [facility] [place] [address] [id number] [place] [address] October Unintentional weight loss R63.4 [facility] [place] [address] [id number] [place] [address] October Abscess L02.91 [facility] [place] [address] [id number] [place] [address] October Diabetes E11.9 ; Unintentional weight loss R63.4 ; History of hematuria Z87.448 and Cocaine abuse F14.10 [facility] [place] [address] [id number] [place] [address] October Diabetes E11.9 [facility] [place] [address] [id number] [place] [address] October Essential hypertension I10 and Abscess L02.91 [facility] [place] [address] [id number] [place] [address] Jun [facility] [place] [address] [id number] [place] [address] May Breast cancer screening Z12.39 ; Diabetes E11.9 and Anxiety F41.9 [facility] [place] [address] [facility] [id number] [place] [address] May, Diabetes E11.9 [facility] [place] [address] [id number] [place] [address] May Diabetes E11.9 and Anemia D64.9 [facility] [place] [address] [id number] [place] [address] May Anxiety F41.9 [facility] [place] [address] [id number] [place] [address] 08 May [facility] [place] [address] [id number] [place] [address] May Dysuria R30.0 [facility] [place] [address] [id number] [place] [address] May [facility] [place] [address] [id number] [place] [address] 05 May Dysuria R30.0 and Vaginal itching L29.8 [facility] [address] [facility]NOTE 3] [id number] [place] [address] Apr, [facility] [place] [address] [id number] [place] [address] 14 Apr Diabetes E11.9 ; Dysuria R30.0 ; Diabetic neuropathy E11.40 ; Anemia D64.9 and Vaginal discharge N89.8 [facility] [address] [id number], [place] [address] Jun, [address]100[place] [id number] Jun, Anemia D64.9 ; Anxiety F41.9 ; Diabetes E11.9 and Diabetic neuropathy E11.40 [address] [address] May, [facility] [address] 1466165100[place], [place] [address] Apr, [place] [id number] [place] [id number] Apr, Anemia D64.9 ; Anxiety F41.9 ; Diabetes E11.9 and Diabetic neuropathy E11.40 [place] [address] [place] [id number] Mar, Acute costochondritis M94.0 [place] [address] [place] [id number] Mar, Bilateral low back pain without sciatica M54.5 and Bereavement Z63.4 [place] [address] [place] [id number] Mar, Obstructive chronic bronchitis with acute exacerbation J44.1 ; Herpes zoster without complication B02.9 and [place]phath N91.2 [place] [address] [place] [id number] Mar, [place] [id number] [place] [id number] Mar, [place] [address] [place] [id number] Feb, History of recent traumatic injury of head V15.52 ; Diabetes type 2, uncontrolled 250.02 and Visual disturbance 368.9 [place] [address] [place] [id number] Feb, History of recent traumatic injury of [...] infection 2004 Hospitalization History in rehab at [facility] 2016 Hospitalization History Stroke 05/2017 Hospitalization History surgeries Hospitalization History Elevated B/S 07/2017 Hospitalization History [facility] - blood clot LRE 10/2017 Hospitalization History [facility] - R ankle clot 11/2017
--- OUTSIDE RECORDS SUMMARY | 2018-05-13 10:49 | XMS REPORT ---
Author Author CHRIS BECKWITH [facility] Address [address] [place] [address] Care Team Providers Care Tenterer Name Role Phone CHRIS BECKWITH Unavailable PROBLEMS Type Condition ICD9-CM Code QYX09-WU Code Onset Dates Condition Status SNOMED Code Problem Sleep apnea in adult G47.30 Active 95930222 Problem Moderately severe depression F32.2 Active 700534453 Problem Hypoglycemia associated with type 2 diabetes mellitus E11.649 Active 210476189 Problem PVD (peripheral vascular disease) I73.9 Active 712138786 Problem PAD (peripheral artery disease) I73.9 Active 873898208 Problem Hypoglycemia E16.2 Active 006958883 Problem Cerebrovascular accident (CVA), unspecified mechanism I63.9 Active 479134427 Problem Breast asymmetry N64.89 Active 231276325 Problem Abnormal mammogram of right breast R92.8 Active 408818779 Problem Diabetic neuropathy E11.40 Active 817691527 Problem Anxiety F41.9 Active 00946624 Problem Obstructive sleep apnea syndrome G47.33 Active 96218050 Problem Stage 2 chronic kidney disease N18.2 Active 526200990 Problem Essential hypertension I10 Active 77732029 Problem Type 2 diabetes mellitus with hyperglycemia E11.65 Active [id number] Problem Cocaine abuse F14.10 Active 51171355 Problem Hyperlipidemia, unspecified E78.5 Active [id number] ALLERGIES No Information ENCOUNTERS Encounter Location Date Diagnosis [facility] [address] [facility] [id number] [place] [address] Dec, [facility] [place] [address] [id number] [place] [address] Nov [facility] [address] [id number] [place] [address] Nov [facility] [place] [address] [id number] [place] [address] Nov PVD (peripheral vascular disease) I73.9 ; Type 2 diabetes mellitus with hyperglycemia E11.65 and PAD (peripheral artery disease) I73.9 [facility] [place] [address] [id number] [place] [address] Nov [facility] [place] [address] [id number] [place] [address] Nov [facility] [place] [address] [id number] [place] [address] Nov [facility] [place] [address] [id number] [place] [address] October [facility] [place] [address] [id number] [place] [address] October [facility] [place] [address] [id number] [place] [address] October Type 2 diabetes mellitus with hyperglycemia E11.65 and Surgical procedure on lower extremity within past 6 months Z98.890 [facility] [place] [address] [id number] [place] [address] October [facility] [place] [address] [id number] [place] [address] October [facility] [place] [address] [facility] [facility] [id number] [place] [address] October, [facility] [place] [address] [id number] [place] [address] October Sleep apnea in adult G47.30 [facility] [place] [address] [id number] [place] [address] October Type 2 diabetes mellitus with hyperglycemia E11.65 [facility] [place] [address] [id number] [place] [address] Sep [facility] [place] [address] [id number] [place] [address] Sep Breast asymmetry N64.89 [facility] [place] [address] [id number] [place] [address] Sep [facility] [place] [address] [id number] [place] [address] Sep Type 2 diabetes mellitus with hyperglycemia E11.65 ; Cocaine abuse F14.10 and Open wound of right great toe, subsequent encounter S91.101D [facility] [place] [address] [id number] [place] [address] Sep [facility] [place] [address] [id number] [place] [address] Aug [facility] [place] [address] [id number] [place] [address] Aug [facility] [place] [address] [id number] [place] [address] Aug Type 2 diabetes mellitus with hyperglycemia E11.65 [facility] [place] [address] [id number] [place] [address] Aug [facility] [place] [address] [facility] [id number] [place] [address] Aug, [facility] [place] [address] [id number] [place] [address] Jul [facility] [place] [address] [id number] [place] [address] Jul Diabetic neuropathy E11.40 ; Essential hypertension I10 and Type 2 diabetes mellitus with hyperglycemia E11.65 [facility] [place] [address] [id number] [place] [address] Jul [facility] [place] [address] [id number] [place] [address] Jul [facility] [place] [address] [id number] [place] [address] Jul [facility] [place] [address] [id number] [place] [address] Jul [facility] [place] [address] [id number] [place] [address] Jul [facility] [place] [address] [id number] [place] [address] Jul Type 2 diabetes mellitus with hyperglycemia E11.65 ; Open wound of right great toe, subsequent encounter S91.101D ; Essential hypertension I10 and Diabetic neuropathy E11.[address] [facility] [address] [id number] [place] [address] Jul, [facility] [place] [address] [id number] [place] [address] Jun [facility] [place] [address] [id number] [place] [address] Jun Type 2 diabetes mellitus with hyperglycemia E11.65 [facility] [place] [address] [id number] [place] [address] Jun [facility] [place] [address] [id number] [place] [address] Jun [facility] [place] [address] [id number] [place] [address] Jun Abnormal mammogram of right breast R92.8 and Breast asymmetry N64.89 [facility] [place] [address] [id number] [place] [address] Jun [facility] [place] [address] [id number] [place] [address] Jun [facility] [place] [address] [id number] [place] [address] May Hypoglycemia E16.2 [facility] [place] [address] [id number] [place] [address] May Abnormal neurological exam R29.90 [facility] [place] [address] [id number] [place] [address] May [facility] [place] [address] [id number] [place] [address] May Type 2 diabetes mellitus with hyperglycemia E11.65 [facility] [place] [address] [id number] [place] [address] May Breast cancer screening Z12.31 and Hematuria, unspecified type R31.9 [facility] [place] [address] [id number] [place] [address] May [facility] [address] [id number] [place] [address] May Type 2 diabetes mellitus with hyperglycemia E11.65 ; Essential hypertension I10 ; Moderately severe depression F32.2 and Confusion R41.0 [place] [address] [id number] [place] [address] May, [facility]ENTERCebaTechCON[facility] [address] [id number] [place] [address] May Cerebrovascular accident (CVA), unspecified mechanism I63.9 ; Essential hypertension I10 ; Hyperlipidemia, unspecified E78.5 and Type 2 diabetes mellitus with hyperglycemia E11.65 [place] [address], [place] [address] May, [place] [address] [id number], [place] [address] May, [facility]ERCebaTechCON[facility] [address] [id number] [place] [address] May [facility]ENTERCebaTechCON[facility] [address] [id number] [place] [address] May Diabetic neuropathy E11.40 and Diabetes E11.9 [facility]ITALFormaFina [place] [address] [id number] [place] [address] Apr [facility] [address] [id number] [place] [address] Apr Subacute maxillary sinusitis J01.00 ; Hypoglycemia associated with type 2 diabetes mellitus E11.649 and Intractable episodic headache, unspecified headache type R51 [facility]ENTERGyst [place] [address] [id number] [place] [address] Apr Diabetic neuropathy E11.40 and Anxiety F41.9 [facility] [place] [address] [id number] [place] [address] Apr [facility]ITALFormaFina [place] [address] [id number] [place] [address] Apr Type 2 diabetes mellitus with hyperglycemia E11.65 ; Subacute maxillary sinusitis J01.00 ; Diabetic neuropathy E11.40 and Sleep apnea in adult G47.30 [place] [address] [id number] [address] Apr, [facility] [place] [address] [id number] [place] [address] Apr [facility] [place] [address] [id number] [place] [address] Apr [facility] [place] [address] [id number] [place] [address] Apr Subacute maxillary sinusitis J01.00 [place] [address], [place] [address] Apr, Right foot drop M21.371 [facility] [place] [address] [id number] [place] [address] Apr [facility] [place] [address] [id number] [place] [address] Mar [facility] [place] [address] [id number] [place] [address] Mar Essential hypertension I10 ; Type 2 diabetes mellitus with hyperglycemia E11.65 ; Encounter for immunization Z23 ; Cocaine abuse F14.10 and Hyperlipidemia, unspecified E78.5 [facility] [place] [address] [id number] [place] [address] Mar [place] [address] [id number] [address] Mar, [facility] [place] [address] [id number] [place] [address] Feb [facility] [place] [address] [id number] [place] [address] Feb Type 2 diabetes mellitus with hyperglycemia E11.65 and Acute right ankle pain M25.571 [facility] [place] [address] [id number] [place] [address] Feb Weight loss R63.4 and Anxiety F41.9 [place] [address] [id number], [place] [address] Jan, [facility] [address], [place] [address] Jan, [facility] [address], [place] [address] Jan, [facility] [address], [place] [address] Jan, Diabetes E11.9 [facility] MAN [address] [id number] [place] [address] Jan Sprain of right ankle, unspecified ligament, initial encounter S93.401A [facility]Gavin [place] [address] [id number] [place] [address] Jan Essential hypertension I10 ; Anxiety F41.9 and Type 2 diabetes mellitus with hyperglycemia E11.65 [facility] [address], [place] [address] Jan, Diabetes E11.9 [facility] [address], [place] [address] Jan, [facility] [address] [place] [address] Jan, [facility] [place] [address] [id number] [place] [address] Jan [facility] [address], [place] [address] Jan, [facility] [address], [place] [address] Jan, [facility] [address], [place] [address] Jan, [facility] [address], [place] [address] Jan, [facility] [address], [place] [address] Jan, Unintentional weight loss R63.4 ; Stage 2 chronic kidney disease N18.2 ; Exposure to hepatitis C Z20.5 ; Diabetic neuropathy E11.40 ; Obstructive sleep apnea syndrome G47.33 ; Essential hypertension I10 and Type 2 diabetes mellitus with hyperglycemia E11.65 [facility] [address], [place] [address] Jan, [facility] [id number] [place] [address] Jan, Type 2 diabetes mellitus with hyperglycemia E11.65 ; Diabetic neuropathy E11.40 and Essential hypertension I10 [facility] [address] [place] [address] Dec, Diabetes E11.9 [facility] [address] [place] [address] Dec, [facility] [id number] [place] [address] Dec, [facility] [address] [place] [address] Dec, [facility] [id number] [place] [address] Dec, Dental examination Z01.20 [facility] [address] [place] [address] Dec, [facility] [address] [place] [address] Dec, Diabetes E11.9 [facility] [address], [place] [address] Dec, Stage 2 chronic kidney disease N18.2 ; Exposure to hepatitis C Z20.5 ; Obstructive sleep apnea syndrome G47.33 and Type 2 diabetes mellitus with hyperglycemia E11.65 [facility] [address], [place] [address] Dec, [facility] [place] [address] [id number] [place] [address] Dec Diabetes E11.9 and Essential hypertension I10 [facility] [address] [facility] [id number] [place] [address] Nov, Diabetes E11.9 [facility] [address] [id number] [address] Nov, Right foot pain M79.671 [facility] [address] [id number] [address] Nov, Right foot pain M79.671 [facility] [place] [address] [id number] [place] [address] Nov Diabetes E11.9 [facility] [place] [address] [id number] [place] [address] Nov Diabetes E11.9 [facility] [address] [id number] [address] Nov, Dental examination Z01.20 [facility] [place] [address] [id number] [place] [address] Nov Diabetes E11.9 ; Cocaine abuse F14.10 and Shingles (herpes zoster) polyneuropathy B02.23 [facility] [place] [address] [id number] [place] [address] Nov [facility] [address] [facility] [facility] [id number] [place] [address] October, [facility] [place] [address] [id number] [place] [address] October [facility] [place] [address] [id number] [place] [address] October Unintentional weight loss R63.4 [facility] [place] [address] [id number] [place] [address] October Abscess L02.91 [facility] [place] [address] [id number] [place] [address] October Diabetes E11.9 ; Unintentional weight loss R63.4 ; History of hematuria Z87.448 and Cocaine abuse F14.10 [facility] [place] [address] [id number] [place] [address] October Diabetes E11.9 [facility] [place] [address] [id number] [place] [address] October Essential hypertension I10 and Abscess L02.91 [facility] [place] [address] [id number] [place] [address] Jun [facility] [place] [address] [id number] [place] [address] May Breast cancer screening Z12.39 ; Diabetes E11.9 and Anxiety F41.9 [facility] [place] [address] [facility] [id number] [place] [address] May, Diabetes E11.9 [facility] [place] [address] [id number] [place] [address] May Diabetes E11.9 and Anemia D64.9 [facility] [place] [address] [id number] [place] [address] May Anxiety F41.9 [facility] [place] [address] [id number] [place] [address] 08 May [facility] [place] [address] [id number] [place] [address] May Dysuria R30.0 [facility] [place] [address] [id number] [place] [address] May [facility] [place] [address] [id number] [place] [address] 05 May Dysuria R30.0 and Vaginal itching L29.8 [facility] [address] [facility] [id number] [place] [address] Apr, [facility] [place] [address] [id number] [place] [address] 14 Apr Diabetes E11.9 ; Dysuria R30.0 ; Diabetic neuropathy E11.40 ; Anemia D64.9 and Vaginal discharge N89.8 [facility] [address] [id number] [address] Jun, [address]65[address] [address] Jun, Anemia D64.9 ; Anxiety F41.9 ; Diabetes E11.9 and Diabetic neuropathy E11.40 [address]00565100[place] [id number] May, [facility] [address] 9369165100[place], [place] [address] Apr, [place] [id number] [place] [id number] Apr, Anemia D64.9 ; Anxiety F41.9 ; Diabetes E11.9 and Diabetic neuropathy E11.40 [place] [id number] [place] [id number] Mar, Acute costochondritis M94.0 [place] [address] [place] [id number] Mar, Bilateral low back pain without sciatica M54.5 and Bereavement Z63.4 [place] [address] [place] [phone] Mar, Obstructive chronic bronchitis with acute exacerbation J44.1 ; Herpes zoster without complication B02.9 and [place] N91.2 [place] [address] [place] [id number] Mar, [place] [address] [place] [id number] Mar, [place] [address] [place] [id number] Feb, History of recent traumatic injury of head V15.52 ; Diabetes type 2, uncontrolled 250.02 and Visual disturbance 368.9 [place] [address] [place] [id number] Feb, History of recent traumatic injury of head V15.52 ; Visual disturbance 368.9 and Diabetes type 2, uncontrolled 250.02 IMMUNIZATIONS No Known Immunizations SOCIAL HISTORY Never Assessed REASON FOR VISIT disability PLAN OF CARE VITAL SIGNS MEDICATIONS Unknown [...] infection 2004 Hospitalization History in rehab at [facility] 2016 Hospitalization History Stroke 05/2017 Hospitalization History surgeries Hospitalization History Elevated B/S 07/2017 Hospitalization History [facility] - blood clot LRE 10/2017 Hospitalization History [facility] - R ankle clot 11/2017
--- OUTSIDE RECORDS SUMMARY | 2018-05-13 10:49 | XMS REPORT ---
Author Author CHRIS BECKWITH [facility] Address [address] [place] [address] Care Team Providers Care Database Marketing Manager Name Role Phone CHRIS BECKWITH Unavailable PROBLEMS Type Condition ICD9-CM Code VUQ58-WZ Code Onset Dates Condition Status SNOMED Code Problem Sleep apnea in adult G47.30 Active 48565575 Problem Moderately severe depression F32.2 Active 011407218 Problem Hypoglycemia associated with type 2 diabetes mellitus E11.649 Active 949392738 Problem PVD (peripheral vascular disease) I73.9 Active 345470495 Problem PAD (peripheral artery disease) I73.9 Active 018867781 Problem Hypoglycemia E16.2 Active 988450545 Problem Cerebrovascular accident (CVA), unspecified mechanism I63.9 Active 692616022 Problem Breast asymmetry N64.89 Active 593048405 Problem Abnormal mammogram of right breast R92.8 Active 457521356 Problem Diabetic neuropathy E11.40 Active 823499180 Problem Anxiety F41.9 Active 22281990 Problem Obstructive sleep apnea syndrome G47.33 Active 10147142 Problem Stage 2 chronic kidney disease N18.2 Active 350255729 Problem Essential hypertension I10 Active 97669253 Problem Type 2 diabetes mellitus with hyperglycemia E11.65 Active 604125798293722 Problem Cocaine abuse F14.10 Active 63984999 Problem Hyperlipidemia, unspecified E78.5 Active 38495441 ALLERGIES No Information ENCOUNTERS Encounter Location Date Diagnosis [facility] [address] [facility] [id number] [place] [address] Dec, [facility] [place] [address] [id number] [place] [address] Nov [facility] [address] [id number] [place] [address] Nov [facility] [place] [address] [id number] [place] [address] Nov PVD (peripheral vascular disease) I73.9 ; Type 2 diabetes mellitus with hyperglycemia E11.65 and PAD (peripheral artery disease) I73.9 [facility] [place] [address] [id number] [place] [address] Nov [facility] [place] [address] [id number] [place] [address] Nov [facility] [place] [address] [id number] [place] [address] Nov [facility] [place] [address] [id number] [place] [address] October [facility] [place] [address] [id number] [place] [address] October [facility] [place] [address] [id number] [place] [address] October Type 2 diabetes mellitus with hyperglycemia E11.65 and Surgical procedure on lower extremity within past 6 months Z98.890 [facility] [place] [address] [id number] [place] [address] October [facility] [place] [address] [id number] [place] [address] October [facility] [address] [facility] [id number] [place] [address] October, [facility] [place] [address] [id number] [place] [address] October Sleep apnea in adult G47.30 [facility] [place] [address] [id number] [place] [address] October Type 2 diabetes mellitus with hyperglycemia E11.65 [facility] [place] [address] [id number] [place] [address] Sep [facility] [place] [address] [id number] [place] [address] Sep Breast asymmetry N64.89 [facility] [place] [address] [id number] [place] [address] Sep [facility] [place] [address] [id number] [place] [address] Sep Type 2 diabetes mellitus with hyperglycemia E11.65 ; Cocaine abuse F14.10 and Open wound of right great toe, subsequent encounter S91.101D [facility] [place] [address] [id number] [place] [address] Sep [facility] [place] [address] [id number] [place] [address] Aug [facility] [place] [address] [id number] [place] [address] Aug [facility] [place] [address] [id number] [place] [address] Aug Type 2 diabetes mellitus with hyperglycemia E11.65 [facility] [place] [address] [id number] [place] [address] Aug [facility] [address] [facility] [id number] [place] [address] Aug, [facility] [place] [address] [id number] [place] [address] Jul [facility] [place] [address] [id number] [place] [address] Jul Diabetic neuropathy E11.40 ; Essential hypertension I10 and Type 2 diabetes mellitus with hyperglycemia E11.65 [facility] [place] [address] [id number] [place] [address] Jul [facility] [place] [address] [id number] [place] [address] Jul [facility] [place] [address] [id number] [place] [address] Jul [facility] [place] [address] [id number] [place] [address] Jul [facility] [place] [address] [id number] [place] [address] Jul [facility] [place] [address] [id number] [place] [address] Jul Type 2 diabetes mellitus with hyperglycemia E11.65 ; Open wound of right great toe, subsequent encounter S91.101D ; Essential hypertension I10 and Diabetic neuropathy E11.[address] [facility] [address] [id number] [place] [address] Jul, [facility] [place] [address] [id number] [place] [address] Jun [facility] [place] [address] [id number] [place] [address] Jun Type 2 diabetes mellitus with hyperglycemia E11.65 [facility] [place] [address] [id number] [place] [address] Jun [facility] [place] [address] [id number] [place] [address] Jun [facility] [place] [address] [id number] [place] [address] Jun Abnormal mammogram of right breast R92.8 and Breast asymmetry N64.89 [facility] [place] [address] [id number] [place] [address] Jun [facility] [place] [address] [id number] [place] [address] Jun [facility] [place] [address] [id number] [place] [address] May Hypoglycemia E16.2 [facility] [place] [address] [id number] [place] [address] May Abnormal neurological exam R29.90 [facility] [place] [address] [id number] [place] [address] May [facility] [place] [address] [id number] [place] [address] May Type 2 diabetes mellitus with hyperglycemia E11.65 [facility] [place] [address] [id number] [place] [address] May Breast cancer screening Z12.31 and Hematuria, unspecified type R31.9 [facility] [place] [address] [id number] [place] [address] May [facility] [address] [id number] [place] [address] May Type 2 diabetes mellitus with hyperglycemia E11.65 ; Essential hypertension I10 ; Moderately severe depression F32.2 and Confusion R41.0 [place] [address] [id number] [place] [address] May, [facility] Management[facility] [address] [id number] [place] [address] May Cerebrovascular accident (CVA), unspecified mechanism I63.9 ; Essential hypertension I10 ; Hyperlipidemia, unspecified E78.5 and Type 2 diabetes mellitus with hyperglycemia E11.65 [place] [address] [address] May, [place] [address] [id number], [place] [address] May, [facility] Management[facility] [address] [id number] [place] [address] May [facility] Management[facility] [address] [id number] [place] [address] May Diabetic neuropathy E11.40 and Diabetes E11.9 [facility] [place] [address] [id number] [place] [address] Apr [facility] [address] [id number] [place] [address] Apr Subacute maxillary sinusitis J01.00 ; Hypoglycemia associated with type 2 diabetes mellitus E11.649 and Intractable episodic headache, unspecified headache type R51 [facility] [place] [address] [id number] [place] [address] Apr Diabetic neuropathy E11.40 and Anxiety F41.9 [facility] [place] [address] [id number] [place] [address] Apr [facility] [place] [address] [id number] [place] [address] Apr Type 2 diabetes mellitus with hyperglycemia E11.65 ; Subacute maxillary sinusitis J01.00 ; Diabetic neuropathy E11.40 and Sleep apnea in adult G47.30 [place] [address] [id number] [place] [address] Apr, [facility] [place] [address] [id number] [place] [address] [facility] [place] [address] [id number] [place] [address] Apr [facility] [place] [address] [id number] [place] [address] Apr Subacute maxillary sinusitis J01.00 [place] [address], [place] [address] Apr, Right foot drop M21.[address] [facility] [place] [address] [id number] [place] [address] [facility] [place] [address] [id number] [place] [address] Mar [facility] [place] [address] [id number] [place] [address] Mar Essential hypertension I10 ; Type 2 diabetes mellitus with hyperglycemia E11.65 ; Encounter for immunization Z23 ; Cocaine abuse F14.10 and Hyperlipidemia, unspecified E78.[address] [facility] [place] [address] [id number] [place] [address] Mar [place] [address] [id number], [place] [address] Mar, [facility] [place] [address] [id number] [place] [address] Feb [facility] [place] [address] [id number] [place] [address] Feb Type 2 diabetes mellitus with hyperglycemia E11.65 and Acute right ankle pain M25.[address] [facility] [place] [address] [id number] [place] [address] Feb Weight loss R63.4 and Anxiety F41.9 [place] [address] [id number], [place] [address] Jan, [facility] [address], [place] [address] Jan, [facility] [address], [place] [address] Jan, [facility] [address], [place] [address] Jan, Diabetes E11.[address] [facility] MAN [address] [id number] [place] [address] Jan Sprain of right ankle, unspecified ligament, initial encounter S93.401A [facility] [place] [address] [id number] [place] [address] Jan Essential hypertension I10 ; Anxiety F41.9 and Type 2 diabetes mellitus with hyperglycemia E11.65 [facility] [address], [place] [address] Jan, Diabetes E11.9 [facility] [address]100[place], [place] [address] Jan, [facility] [address] [place] [address] Jan, [facility] [place] [address] [id number] [place] [address] Jan [facility] [address], [place] [address] Jan, [facility] [address], [place] [address] Jan, [facility] [address], [place] [address] Jan, [facility] [address]100[place], [place] [address] Jan, [facility] [address]100[place], [place] [address] Jan, Unintentional weight loss R63.4 ; Stage 2 chronic kidney disease N18.2 ; Exposure to hepatitis C Z20.5 ; Diabetic neuropathy E11.40 ; Obstructive sleep apnea syndrome G47.33 ; Essential hypertension I10 and Type 2 diabetes mellitus with hyperglycemia E11.65 [facility] [address]65100[place], [place] [address] Jan, [facility] [id number] [place] [address] Jan, Type 2 diabetes mellitus with hyperglycemia E11.65 ; Diabetic neuropathy E11.40 and Essential hypertension I10 [facility] [address] [place] [address] Dec, Diabetes E11.9 [facility] [address] [place] [address] Dec, [facility] [id number] [place] [address] Dec, [facility] [address] [place] [address] Dec, [facility] [id number] [place] [address] Dec, Dental examination Z01.20 [facility] [address] [place] [address] Dec, [facility] [address] [place] [address] Dec, Diabetes E11.9 [facility] [address], [place] [address] Dec, Stage 2 chronic kidney disease N18.2 ; Exposure to hepatitis C Z20.5 ; Obstructive sleep apnea syndrome G47.33 and Type 2 diabetes mellitus with hyperglycemia E11.65 [facility] [address], [place] [address] Dec, [facility] [place] [address] [id number] [place] [address] Dec Diabetes E11.9 and Essential hypertension I10 [facility] [address] [facility] [id number] [place] [address] Nov, Diabetes E11.9 [facility] [address] [id number] [address] Nov, Right foot pain M79.671 [facility] [address] [id number] [address] Nov, Right foot pain M79.[address] [facility] [place] [address] [id number] [place] [address] Nov Diabetes E11.[address] [facility] [place] [address] [id number] [place] [address] Nov Diabetes E11.9 [facility] [address] [id number] [place] [id number] Nov, Dental examination Z01.20 [facility] [place] [address] [id number] [place] [address] Nov Diabetes E11.9 ; Cocaine abuse F14.10 and Shingles (herpes zoster) polyneuropathy B02.[address] [facility] [place] [address] [id number] [place] [address] Nov [facility] [address] [facility] [id number] [place] [address] October, [facility] [place] [address] [id number] [place] [address] October [facility] [place] [address] [id number] [place] [address] October Unintentional weight loss R63.4 [facility] [place] [address] [id number] [place] [address] October Abscess L02.91 [facility] [place] [address] [id number] [place] [address] October Diabetes E11.9 ; Unintentional weight loss R63.4 ; History of hematuria Z87.448 and Cocaine abuse F14.10 [facility] [place] [address] [id number] [place] [address] October Diabetes E11.9 [facility] [place] [address] [id number] [place] [address] October Essential hypertension I10 and Abscess L02.91 [facility] [place] [address] [id number] [place] [address] Jun [facility] [place] [address] [id number] [place] [address] May Breast cancer screening Z12.39 ; Diabetes E11.9 and Anxiety F41.9 [facility] [place] [address] [facility] [id number] [place] [address] May, Diabetes E11.9 [facility] [place] [address] [id number] [place] [address] May Diabetes E11.9 and Anemia D64.9 [facility] [place] [address] [id number] [place] [address] May Anxiety F41.9 [facility] [place] [address] [id number] [place] [address] 08 May [facility] [place] [address] [id number] [place] [address] May Dysuria R30.0 [facility] [place] [address] [id number] [place] [address] May [facility] [place] [address] [id number] [place] [address] 05 May Dysuria R30.0 and Vaginal itching L29.8 [facility] [address] [facility] [id number] [place] [address] Apr, [facility] [place] [address] [id number] [place] [address] 14 Apr Diabetes E11.9 ; Dysuria R30.0 ; Diabetic neuropathy E11.40 ; Anemia D64.9 and Vaginal discharge N89.8 [facility] [address] [id number], [place] [address] Jun, [address]005[address] [id number] Jun, Anemia D64.9 ; Anxiety F41.9 ; Diabetes E11.9 and Diabetic neuropathy E11.40 [address]005[address]100[place] [id number] May, [facility] [address] [id number], [place] [address] Apr, [place] [id number] [place] [id number] Apr, Anemia D64.9 ; Anxiety F41.9 ; Diabetes E11.9 and Diabetic neuropathy E11.[address] [place] [id number] [place] [id number] Mar, Acute costochondritis M94.0 [place] [id number] [place] [id number] Mar, Bilateral low back pain without sciatica M54.5 and Bereavement Z63.4 [place] [id number] [place] [id number] Mar, Obstructive chronic bronchitis with acute exacerbation J44.1 ; Herpes zoster without complication B02.9 and Berino N91.[address] [place] [id number] [place] [address] [id number] Mar, [place] [id number] [place] [id number] Mar, [place] [id number] [place] [id number] Feb, History of recent traumatic injury of head V15.52 ; Diabetes type 2, uncontrolled 250.02 and Visual disturbance 368.[address] [place] [id number] [place] [id number] Feb, History of recent traumatic injury of head V15.52 ; Visual disturbance 368.9 and Diabetes type 2, uncontrolled 250.02 IMMUNIZATIONS No Known Immunizations SOCIAL HISTORY Never Assessed REASON FOR VISIT Medication request PLAN OF CARE VITAL SIGNS MEDICATIONS [...] infection 2004 Hospitalization History in rehab at [facility] 2016 Hospitalization History Stroke 05/2017 Hospitalization History surgeries Hospitalization History Elevated B/S 07/2017 Hospitalization History [facility] - blood clot LRE 10/2017 Hospitalization History [facility] - R ankle clot 11/2017
--- OUTSIDE RECORDS SUMMARY | 2018-05-13 10:50 | XMS REPORT ---
Author Author CHRIS BECKWITH [facility] Address [address] [place] [address] Care Team Providers Care Field Pipelines Supervisor Name Role Phone CHRIS BECKWITH Unavailable PROBLEMS Type Condition ICD9-CM Code QQG00-UU Code Onset Dates Condition Status SNOMED Code Problem Sleep apnea in adult G47.30 Active 22548896 Problem Moderately severe depression F32.2 Active 357324032 Problem Hypoglycemia associated with type 2 diabetes mellitus E11.649 Active 567930576 Problem PVD (peripheral vascular disease) I73.9 Active 994866608 Problem PAD (peripheral artery disease) I73.9 Active 750366308 Problem Hypoglycemia E16.2 Active 108079676 Problem Cerebrovascular accident (CVA), unspecified mechanism I63.9 Active 886049719 Problem Breast asymmetry N64.89 Active 525576769 Problem Abnormal mammogram of right breast R92.8 Active 145217647 Problem Diabetic neuropathy E11.40 Active 876532198 Problem Anxiety F41.9 Active 22807411 Problem Obstructive sleep apnea syndrome G47.33 Active 83404785 Problem Stage 2 chronic kidney disease N18.2 Active 264510080 Problem Essential hypertension I10 Active 58063812 Problem Type 2 diabetes mellitus with hyperglycemia E11.65 Active 644348288111528 Problem Cocaine abuse F14.10 Active 25490946 Problem Hyperlipidemia, unspecified E78.5 Active 23907937 ALLERGIES Substance Reaction Event Type Date Status Phenergan nausea Drug Allergy Sep, Active Penicillin V Potassium nausea Drug Allergy Sep, Active Codeine Sulfate itch Drug Allergy Sep, Active ENCOUNTERS Encounter Location Date Diagnosis [facility] [address] [facility] [id number] [place] [address] Dec, [facility] [address] [id number] [place] [address] Nov [facility] [address] [id number] [place] [address] Nov [facility] [place] [address] [id number] [place] [address] Nov PVD (peripheral vascular disease) I73.9 ; Type 2 diabetes mellitus with hyperglycemia E11.65 and PAD (peripheral artery disease) I73.9 [facility] [place] [address] [id number] [place] [address] Nov [facility] [place] [address] [id number] [place] [address] Nov [facility] [place] [address] [id number] [place] [address] Nov [facility] [place] [address] [id number] [place] [address] October [facility] [place] [address] [id number] [place] [address] October [facility] [place] [address] [id number] [place] [address] October Type 2 diabetes mellitus with hyperglycemia E11.65 and Surgical procedure on lower extremity within past 6 months Z98.890 [facility] [place] [address] [id number] [place] [address] October [facility] [place] [address] [id number] [place] [address] October [facility] [address] [facility] [id number] [place] [address] October, [facility] [place] [address] [id number] [place] [address] October Sleep apnea in adult G47.30 [facility] [place] [address] [id number] [place] [address] October Type 2 diabetes mellitus with hyperglycemia E11.65 [facility] [place] [address] [id number] [place] [address] Sep [facility] [place] [address] [id number] [place] [address] Sep Breast asymmetry N64.89 [facility] [place] [address] [id number] [place] [address] Sep [facility] [place] [address] [id number] [place] [address] Sep Type 2 diabetes mellitus with hyperglycemia E11.65 ; Cocaine abuse F14.10 and Open wound of right great toe, subsequent encounter S91.101D [facility] [place] [address] [id number] [place] [address] Sep [facility] [place] [address] [id number] [place] [address] Aug [facility] [place] [address] [id number] [place] [address] Aug [facility] [place] [address] [id number] [place] [address] Aug Type 2 diabetes mellitus with hyperglycemia E11.65 [facility] [place] [address] [id number] [place] [address] Aug [facility] [address] [facility] [id number] [place] [address] Aug, [facility] [place] [address] [id number] [place] [address] Jul [facility] [place] [address] [id number] [place] [address] Jul Diabetic neuropathy E11.40 ; Essential hypertension I10 and Type 2 diabetes mellitus with hyperglycemia E11.65 [facility] [place] [address] [id number] [place] [address] Jul [facility] [place] [address] [id number] [place] [address] Jul [facility] [place] [address] [id number] [place] [address] Jul [facility] [place] [address] [id number] [place] [address] Jul [facility] [place] [address] [id number] [place] [address] Jul [facility] [place] [address] [id number] [place] [address] Jul Type 2 diabetes mellitus with hyperglycemia E11.65 ; Open wound of right great toe, subsequent encounter S91.101D ; Essential hypertension I10 and Diabetic neuropathy E11.40 [facility] [place] [facility]placed by [facility] [address] [id number] [place] [id number] Jul, [facility] [place] [address] [id number] [place] [address] Jun [facility] [place] [address] [id number] [place] [address] Jun Type 2 diabetes mellitus with hyperglycemia E11.65 [facility] [place] [address] [id number] [place] [address] Jun [facility] [place] [address] [id number] [place] [address] Jun [facility] [place] [address] [id number] [place] [address] Jun Abnormal mammogram of right breast R92.8 and Breast asymmetry N64.89 [facility] [place] [address] [id number] [place] [address] Jun [facility] [place] [address] [id number] [place] [address] Jun [facility] [place] [address] [id number] [place] [address] May Hypoglycemia E16.2 [facility] [place] [address] [id number] [place] [address] May Abnormal neurological exam R29.90 [facility] [place] [address] [id number] [place] [address] May [facility] [place] [address] [id number] [place] [address] May Type 2 diabetes mellitus with hyperglycemia E11.65 [facility] [place] [address] [id number] [place] [address] May Breast cancer screening Z12.31 and Hematuria, unspecified type R31.9 [facility] [place] [address] [id number] [place] [address] May [facility] [place] [address] [id number] [place] [address] May Type 2 diabetes mellitus with hyperglycemia E11.65 ; Essential hypertension I10 ; Moderately severe depression F32.2 and Confusion R41.0 [place] [address] [address] May, 2017 [facility] [place] [address] [id number] [place] [address] May Cerebrovascular accident (CVA), unspecified mechanism I63.9 ; Essential hypertension I10 ; Hyperlipidemia, unspecified E78.5 and Type 2 diabetes mellitus with hyperglycemia E11.65 [place] [address], [place] [address] May, [place] [address], [place] [address] May, [facility] [address] [id number] [place] [address] May [facility] [place] [address] [id number] [place] [address] May Diabetic neuropathy E11.40 and Diabetes E11.9 [facility] [place] [address] [id number] [place] [address] Apr [facility] [place] [address] [id number] [place] [address] Apr Subacute maxillary sinusitis J01.00 ; Hypoglycemia associated with type 2 diabetes mellitus E11.649 and Intractable episodic headache, unspecified headache type R51 [facility] [place] [address] [id number] [place] [address] Apr Diabetic neuropathy E11.40 and Anxiety F41.9 [facility] [place] [address] [id number] [place] [address] Apr [facility] [place] [address] [id number] [place] [address] Apr Type 2 diabetes mellitus with hyperglycemia E11.65 ; Subacute maxillary sinusitis J01.00 ; Diabetic neuropathy E11.40 and Sleep apnea in adult G47.30 [place] [address] [facility] [id number] [place] [address] Apr, [facility] [place] [address] [id number] [place] [address] Apr [facility] [place] [address] [id number] [place] [address] Apr [facility] [place] [address] [id number] [place] [address] Apr Subacute maxillary sinusitis J01.00 [place] [address] [facility] [id number] [place] [address] Apr, Right foot drop M21.371 [facility] [place] [address] [id number] [place] [address] Apr [facility] [place] [address] [id number] [place] [address] Mar [facility] [place] [address] [id number] [place] [address] Mar Essential hypertension I10 ; Type 2 diabetes mellitus with hyperglycemia E11.65 ; Encounter for immunization Z23 ; Cocaine abuse F14.10 and Hyperlipidemia, unspecified E78.5 [facility] [place] [address] [id number] [place] [address] Mar [place] [address] [facility] [id number] [place] [address] Mar, [facility] [place] [address] [id number] [place] [address] Feb [facility] [place] [address] [id number] [place] [address] Feb Type 2 diabetes mellitus with hyperglycemia E11.65 and Acute right ankle pain M25.571 [facility] [place] [address] [id number] [place] [address] Feb Weight loss R63.4 and Anxiety F41.9 [facility] [address], [place] [address] Jan, [facility] [address], [place] [address] Jan, [facility] [address] [place] [address] Jan, [facility] [address] [place] [address] Jan, Diabetes E11.9 [facility] [address] [id number] [place] [address] Jan Sprain of right ankle, unspecified ligament, initial encounter S93.401A [facility] [address] [id number] [place] [address] Jan Essential hypertension I10 ; Anxiety F41.9 and Type 2 diabetes mellitus with hyperglycemia E11.65 [facility] [address], [place] [address] Jan, Diabetes E11.9 [facility] [address] [place] [address] Jan, [facility] [address], [place] [address] Jan, [facility] [address] [id number] [place] [address] Jan [facility] [address], [place] [address] Jan, [facility] [address] [place] [id number] [place] [address] Jan, [facility] [address], [place] [address] Jan, [facility] [address] [place] [address] Jan, [facility] [address], [place] [address] Jan, Unintentional weight loss R63.4 ; Stage 2 chronic kidney disease N18.2 ; Exposure to hepatitis C Z20.5 ; Diabetic neuropathy E11.40 ; Obstructive sleep apnea syndrome G47.33 ; Essential hypertension I10 and Type 2 diabetes mellitus with hyperglycemia E11.65 [facility] [address] [address] [id number] [place] [address] Jan, [facility] [address] [address] [id number] [place] [address] Jan, Type 2 diabetes mellitus with hyperglycemia E11.65 ; Diabetic neuropathy E11.40 and Essential hypertension I10 [facility] [address] [place] [address] [id number] [place] [address] Dec, Diabetes E11.9 [facility] [address] [place] [address] [id number] [place] [address] Dec, [facility] [id number] [place] [address] Dec, [facility] [address] [address] [id number] [place] [address] Dec, [facility] [address] [address] [address] [place] [address] Dec, Dental examination Z01.20 [facility] [address] [address] [id number] [place] [address] Dec, [facility] [address] [address] [id number] [place] [address] Dec, Diabetes E11.9 [facility] [address] [address] [place] [address] Dec, Stage 2 chronic kidney disease N18.2 ; Exposure to hepatitis C Z20.5 ; Obstructive sleep apnea syndrome G47.33 and Type 2 diabetes mellitus with hyperglycemia E11.65 [facility] [address] [address] [address] Dec, [facility] [place] [address] [id number] [place] [address] Dec Diabetes E11.9 and Essential hypertension I10 [facility] [address] [place] [id number] [address] Nov, Diabetes E11.9 [facility] [address] [id number], [place] [address] Nov, Right foot pain M79.671 [facility] [address] [id number] [address] Nov, Right foot pain M79.671 [facility] [place] [address] [id number] [place] [address] Nov Diabetes E11.9 [facility] [place] [address] [id number] [place] [address] Nov Diabetes E11.9 [facility] [address] [place] [address] [id number] [address] Nov, Dental examination Z01.20 [facility] [place] [address] [id number] [place] [address] Nov Diabetes E11.9 ; Cocaine abuse F14.10 and Shingles (herpes zoster) polyneuropathy B02.23 [facility] [place] [address] [id number] [place] [address] Nov [place] [address] [facility] [id number] [place] [address] October, [facility] [place] [address] [id number] [place] [address] October [facility] [place] [address] [id number] [place] [address] October Unintentional weight loss R63.4 [facility] [place] [address] [id number] [place] [address] October Abscess L02.91 [facility] [place] [address] [id number] [place] [address] October Diabetes E11.9 ; Unintentional weight loss R63.4 ; History of hematuria Z87.448 and Cocaine abuse F14.10 [facility] [place] [address] [id number] [place] [address] October Diabetes E11.9 [facility] [place] [address] [id number] [place] [address] October Essential hypertension I10 and Abscess L02.91 [facility] [place] [address] [id number] [place] [address] Jun [facility] [place] [address] [id number] [place] [address] May Breast cancer screening Z12.39 ; Diabetes E11.9 and Anxiety F41.9 [facility] [place] [address] [facility] [id number] [place] [id number] 16 May, 2016 Diabetes E11.9 [facility] [place] [address] [id number] [place] [address] 15 May Diabetes E11.9 and Anemia D64.9 [facility] [place] [address] [id number] [place] [address] 14 May Anxiety F41.9 [facility] [place] [address] [id number] [place] [address] 08 May [facility] [place] [address] [id number] [place] [address] 06 May Dysuria R30.0 [facility] [place] [address] [id number] [place] [address] 06 May [facility] [place] [address] [id number] [place] [address] 05 May Dysuria R30.0 and Vaginal itching L29.8 [facility] [address] [facility] [id number] [place] [address] 18 Apr, 2016 [facility] [place] [address] [id number] [place] [address] Apr Diabetes E11.9 ; Dysuria R30.0 ; Diabetic neuropathy E11.40 ; Anemia D64.9 and Vaginal discharge N89.8 [facility] [address] [address] [id number] [place] [address] Jun, [place] [id number] [place] [id number] Jun, Anemia D64.9 ; Anxiety F41.9 ; Diabetes E11.9 and Diabetic neuropathy E11.[address] [id number] May, [facility] [address] [address] Apr, [address] [id number] Apr, Anemia D64.9 ; Anxiety F41.9 ; Diabetes E11.9 and Diabetic neuropathy E11.[address] [id number] Mar, Acute costochondritis M94.[address] [id number] Mar, Bilateral low back pain without sciatica M54.5 and Bereavement Z63.[address] [id number] Mar, Obstructive chronic bronchitis with acute exacerbation J44.1 ; Herpes zoster without complication B02.9 and [place] N91.2 [place] [id number] [place] [id number] Mar, [address] [id number] Mar, [place] [id number] [place] [id number] 24 Feb, 2015 History of recent traumatic injury of head V15.52 ; Diabetes type 2, uncontrolled 250.02 and Visual disturbance 368.9 [facility] [address] [facility] [id number] [place] [id number] Feb, History of recent traumatic injury of head V15.52 ; Visual disturbance 368.9 and Diabetes type 2, uncontrolled 250.02 IMMUNIZATIONS No Known Immunizations SOCIAL HISTORY Never Assessed REASON FOR VISIT Pain, swelling and open area on great toe, R foot. TERRANCE childs PLAN OF CARE Activity Details Follow Up prn Reason: VITAL SIGNS Height 63.50 in 2017-09-12 Weight 118 lbs 2017-09-12 Temperature 97.8 degrees Fahrenheit 2017-09-12 Heart Rate 91 bpm 2017-09-12 Respiratory Rate 20 2017-09-12 BMI 20.57 kg/m2 2017-09-12 Blood pressure systolic 140 mmHg 2017-09-12 Blood pressure diastolic 90 mmHg 2017-09-12 MEDICATIONS Medication Instructions Dosage Frequency Start Date End Date Duration Status Metformin HCl 850 MG Orally Once a day 1 tablet with meals 24h 30 days Active Aspirin 81 MG Orally Once a day 1 tablet 24h May, Active Pantoprazole Sodium 40 MG Orally Once a day 1 tablet 24h Active Amlodipine Besylate 10 mg Orally Once a day 1 tablet 24h May, 30 days Active Glucocard Expression Test - subcutaneously 2 times a day as directed Nov, 30 days Active Acetaminophen 325 MG Orally every 4 hrs 1 tablet as needed 4h Active HydrOXYzine HCl 25 MG Orally 2 times a day as needed for anxieyt 1 tablet as needed Feb, 30 day(s) Active Lisinopril 20 MG Orally Once a day 1 tablet 24h Jan, Active NovoLog Flexpen 100 UNIT/ML Subcutaneous 3 times a day 3 units 8h Jan, Not-Taking Glucocard Expression Test - as directed Nov, Not- Taking Cephalexin 500 mg Orally every 12 hrs 1 capsule 12h May, 07 days Not-Taking Fluticasone Propionate 50 MCG/ACT Nasally Once a day 1 spray in each nostril 24h 30 day(s) Not-Taking Protonix 40 mg Orally Once a day 1 tablet 24h May, 30 day(s) Not-Taking Tylenol Extra Strength 500 mg Orally at bedtime prn for foot pain 1-2 tablet as needed Jul, Active Lisinopril 20 mg Orally Once a day 1 tablet 24h May, 30 day(s) Not-Taking Tradjenta 5 mg Orally Once a day 1 tablet 24h Aug, 90 days Active Gabapentin 300 MG Orally Once a day 1 capsule before bedtime 24h Active Tresiba FlexTouch 100 UNIT/ML Subcutaneous at bedtime Inject 10 units Jan, Not-Taking Atorvastatin Calcium 20 mg Orally Once a day 1 tablet 24h May, Active Ropinirole HCl 1 MG Orally at bedtime 1 tablet 1 to 3 hours before bedtime 30 days Active Multi Complete Not-Taking RESULTS Name Result Date Reference Range GLUCOSE FINGERSTICK (IN HOUSE) 2017-09-12 GLU FINGERSTICK >600 PC Lot # [id number] Exp date 05/2018 URINE DRUG SCREEN (IN HOUSE) 2017-09-12 Lot # [id number] Exp date 02/2019 Control + COCAINE Pos AMPH neg MTD neg THC pos OPIATE neg BENZO neg PCP neg BAR neg OXY neg MAMP neg BUP neg MDMA neg TCA neg UA LONG DIP (IN HOUSE) 2017-09-12 Lot # [id number] Exp date 01/2018 Clarity clear Color yellow Odor no GLU >=1000mg/dl AVERY KET neg SG 1.020 BLO Moderate pH 6.0 Protein 300mg/dl URO NIT neg ITALIA neg Lot # Exp date PROCEDURES Procedure Date Ordered Result Body Site DRUG TEST PRSMV DIR OPT OBS September 12, 2017 GLUCOSE BLOOD TEST September 12, 2017 URINALYSIS, AUTO, W/O SCOPE September 12, 2017 INSTRUCTIONS MEDICATIONS ADMINISTERED No Known Medications [...] History high blood glucose and kidney infection 2005 Hospitalization History in rehab at [facility] 2017 Hospitalization History Stroke 05/2017 Hospitalization History surgeries Hospitalization History Elevated B/S 07/2017 Hospitalization History [facility] - blood clot LRE 10/2017 Hospitalization History [facility] - R ankle clot 11/2017
--- OUTSIDE RECORDS SUMMARY | 2018-05-13 10:50 | XMS REPORT ---
Author Author CHRIS BECKWITH [facility] Address [address] [place] [address] Care Team Providers Care Benefits Coordinator Name Role Phone CHRIS BECKWITH Unavailable PROBLEMS Type Condition ICD9-CM Code JKD97-ZC Code Onset Dates Condition Status SNOMED Code Problem Sleep apnea in adult G47.30 Active 73264748 Problem Moderately severe depression F32.2 Active 597917117 Problem Hypoglycemia associated with type 2 diabetes mellitus E11.649 Active 710112939 Problem PVD (peripheral vascular disease) I73.9 Active 632722791 Problem PAD (peripheral artery disease) I73.9 Active 803013728 Problem Hypoglycemia E16.2 Active 270186783 Problem Cerebrovascular accident (CVA), unspecified mechanism I63.9 Active 617856606 Problem Breast asymmetry N64.89 Active 035671062 Problem Abnormal mammogram of right breast R92.8 Active 367511159 Problem Diabetic neuropathy E11.40 Active 535450898 Problem Anxiety F41.9 Active 93937988 Problem Obstructive sleep apnea syndrome G47.33 Active 12982325 Problem Stage 2 chronic kidney disease N18.2 Active 287331473 Problem Essential hypertension I10 Active 18585381 Problem Type 2 diabetes mellitus with hyperglycemia E11.65 Active [id number] Problem Cocaine abuse F14.10 Active 53541790 Problem Hyperlipidemia, unspecified E78.5 Active 63623422 ALLERGIES No Information ENCOUNTERS Encounter Location Date Diagnosis [facility] [address] [facility] [id number] [place] [address] Dec, [facility] [place] [address] [id number] [place] [address] Nov [facility] [address] [id number] [place] [address] Nov [facility] [place] [address] [id number] [place] [address] Nov PVD (peripheral vascular disease) I73.9 ; Type 2 diabetes mellitus with hyperglycemia E11.65 and PAD (peripheral artery disease) I73.9 [facility] [place] [address] [id number] [place] [address] Nov [facility] [place] [address] [id number] [place] [address] Nov [facility] [place] [address] [id number] [place] [address] Nov [facility] [place] [address] [id number] [place] [address] October [facility] [place] [address] [id number] [place] [address] October [facility] [place] [address] [id number] [place] [address] October Type 2 diabetes mellitus with hyperglycemia E11.65 and Surgical procedure on lower extremity within past 6 months Z98.890 [facility] [place] [address] [id number] [place] [address] October [facility] [place] [address] [id number] [place] [address] October [facility] [address] [facility] [id number] [place] [address] October, [facility] [place] [address] [id number] [place] [address] October Sleep apnea in adult G47.30 [facility] [place] [address] [id number] [place] [address] October Type 2 diabetes mellitus with hyperglycemia E11.65 [facility] [place] [address] [id number] [place] [address] Sep [facility] [place] [address] [id number] [place] [address] Sep Breast asymmetry N64.89 [facility] [place] [address] [id number] [place] [address] Sep [facility] [place] [address] [id number] [place] [address] Sep Type 2 diabetes mellitus with hyperglycemia E11.65 ; Cocaine abuse F14.10 and Open wound of right great toe, subsequent encounter S91.101D [facility] [place] [address] [id number] [place] [address] Sep [facility] [place] [address] [id number] [place] [address] Aug [facility] [place] [address] [id number] [place] [address] Aug [facility] [place] [address] [id number] [place] [address] Aug Type 2 diabetes mellitus with hyperglycemia E11.65 [facility] [place] [address] [id number] [place] [address] Aug [facility] [address] [facility] [id number] [place] [address] Aug, [facility] [place] [address] [id number] [place] [address] Jul [facility] [place] [address] [id number] [place] [address] Jul Diabetic neuropathy E11.40 ; Essential hypertension I10 and Type 2 diabetes mellitus with hyperglycemia E11.65 [facility] [place] [address] [id number] [place] [address] Jul [facility] [place] [address] [id number] [place] [address] Jul [facility] [place] [address] [id number] [place] [address] Jul [facility] [place] [address] [id number] [place] [address] Jul [facility] [place] [address] [id number] [place] [address] Jul [facility] [place] [address] [id number] [place] [address] Jul Type 2 diabetes mellitus with hyperglycemia E11.65 ; Open wound of right great toe, subsequent encounter S91.101D ; Essential hypertension I10 and Diabetic neuropathy E11.[address] [facility] [address] [id number] [place] [address] Jul, [facility] [place] [address] [id number] [place] [address] Jun [facility] [place] [address] [id number] [place] [address] Jun Type 2 diabetes mellitus with hyperglycemia E11.65 [facility] [place] [address] [id number] [place] [address] Jun [facility] [place] [address] [id number] [place] [address] Jun [facility] [place] [address] [id number] [place] [address] Jun Abnormal mammogram of right breast R92.8 and Breast asymmetry N64.89 [facility] [place] [address] [id number] [place] [address] Jun [facility] [place] [address] [id number] [place] [address] Jun [facility] [place] [address] [id number] [place] [address] May Hypoglycemia E16.2 [facility] [place] [address] [id number] [place] [address] May Abnormal neurological exam R29.90 [facility] [place] [address] [id number] [place] [address] May [facility] [place] [address] [id number] [place] [address] May Type 2 diabetes mellitus with hyperglycemia E11.65 [facility] [place] [address] [id number] [place] [address] May Breast cancer screening Z12.31 and Hematuria, unspecified type R31.9 [facility] [place] [address] [id number] [place] [address] May [facility] [address] [id number] [place] [address] May Type 2 diabetes mellitus with hyperglycemia E11.65 ; Essential hypertension I10 ; Moderately severe depression F32.2 and Confusion R41.0 [place] [address] [id number] [address] May, [facility] [address] [id number] [place] [address] May Cerebrovascular accident (CVA), unspecified mechanism I63.9 ; Essential hypertension I10 ; Hyperlipidemia, unspecified E78.5 and Type 2 diabetes mellitus with hyperglycemia E11.65 [place] [address] [address] May, [place] [address] [id number] [address] May, [facility] [address] [id number] [place] [address] May [facility] [address] [id number] [place] [address] May Diabetic neuropathy E11.40 and Diabetes E11.9 [facility] [place] [address] [id number] [place] [address] Apr [facility] [address] [id number] [place] [address] Apr Subacute maxillary sinusitis J01.00 ; Hypoglycemia associated with type 2 diabetes mellitus E11.649 and Intractable episodic headache, unspecified headache type R51 [facility] [place] [address] [id number] [place] [address] Apr Diabetic neuropathy E11.40 and Anxiety F41.9 [facility] [place] [address] [id number] [place] [address] Apr [facility] [place] [address] [id number] [place] [address] Apr Type 2 diabetes mellitus with hyperglycemia E11.65 ; Subacute maxillary sinusitis J01.00 ; Diabetic neuropathy E11.40 and Sleep apnea in adult G47.30 [place] [address] [id number] [address] Apr, [facility] [place] [address] [id number] [place] [address] Apr [facility] [place] [address] [id number] [place] [address] Apr [facility] [place] [address] [id number] [place] [address] Apr Subacute maxillary sinusitis J01.00 [place] [address] [address] Apr, Right foot drop M21.371 [facility] [place] [address] [id number] [place] [address] Apr [facility] [place] [address] [id number] [place] [address] Mar [facility] [place] [address] [id number] [place] [address] Mar Essential hypertension I10 ; Type 2 diabetes mellitus with hyperglycemia E11.65 ; Encounter for immunization Z23 ; Cocaine abuse F14.10 and Hyperlipidemia, unspecified E78.5 [facility] [place] [address] [id number] [place] [address] Mar [place] [address] [id number] [address] Mar, [facility] [place] [address] [id number] [place] [address] Feb [facility] [place] [address] [id number] [place] [address] Feb Type 2 diabetes mellitus with hyperglycemia E11.65 and Acute right ankle pain M25.571 [facility] [place] [address] [id number] [place] [address] Feb Weight loss R63.4 and Anxiety F41.9 [place] [address] [id number] [address] Jan, [facility] [place] [address] [address] Jan, [facility] [address] [address] Jan, [facility] [address] [address] Jan, Diabetes E11.9 [facility] MAN [address] [id number] [place] [address] Jan Sprain of right ankle, unspecified ligament, initial encounter S93.401A [facility]ITALG[facility] [place] [address] [id number] [place] [address] Jan Essential hypertension I10 ; Anxiety F41.9 and Type 2 diabetes mellitus with hyperglycemia E11.65 [facility] [address] [address] Jan, Diabetes E11.9 [facility] [address] [address] Jan, [facility] [address] [place] [address] Jan, [facility] [place] [address] [id number] [place] [address] Jan [facility] [address] [address] Jan, [facility] [address] [address] Jan, [facility] [address] [address] Jan, [facility] [address] [address] Jan, [facility] [address] [address] Jan, Unintentional weight loss R63.4 ; Stage 2 chronic kidney disease N18.2 ; Exposure to hepatitis C Z20.5 ; Diabetic neuropathy E11.40 ; Obstructive sleep apnea syndrome G47.33 ; Essential hypertension I10 and Type 2 diabetes mellitus with hyperglycemia E11.65 [facility] [address] [address] Jan, [facility] [id number] [place] [address] Jan, Type 2 diabetes mellitus with hyperglycemia E11.65 ; Diabetic neuropathy E11.40 and Essential hypertension I10 [facility] [address] [place] [address] Dec, Diabetes E11.9 [facility] [place] [address] [place] [address] Dec, [facility] [id number] [place] [address] Dec, [facility] [address] [place] [address] Dec, [facility] [id number] [place] [address] Dec, Dental examination Z01.20 [facility] [place] [address] [place] [address] Dec, [facility] [address] [place] [address] Dec, Diabetes E11.9 [facility] [address] [address] Dec, Stage 2 chronic kidney disease N18.2 ; Exposure to hepatitis C Z20.5 ; Obstructive sleep apnea syndrome G47.33 and Type 2 diabetes mellitus with hyperglycemia E11.65 [facility] [address] [address] Dec, [facility] [place] [address] [id number] [place] [address] Dec Diabetes E11.9 and Essential hypertension I10 [facility] [address] [facility] [id number] [place] [address] Nov, Diabetes E11.9 [facility] [address] [id number] [address] Nov, Right foot pain M79.671 [facility] [address] [id number] [address] Nov, Right foot pain M79.671 [facility] [place] [address] [id number] [place] [address] Nov Diabetes E11.9 [facility] [place] [address] [id number] [place] [address] [facility] [id number] [id number] Nov, Dental examination Z01.20 [facility] [place] [address] [id number] [place] [address] Nov Diabetes E11.9 ; Cocaine abuse F14.10 and Shingles (herpes zoster) polyneuropathy B02.23 [facility] [place] [address] [id number] [place] [address] Nov [facility] [address] [facility] [id number] [place] [address] October, [facility] [place] [address] [id number] [place] [address] October [facility] [place] [address] [id number] [place] [address] October Unintentional weight loss R63.4 [facility] [place] [address] [id number] [place] [address] October Abscess L02.91 [facility] [place] [address] [id number] [place] [address] October Diabetes E11.9 ; Unintentional weight loss R63.4 ; History of hematuria Z87.448 and Cocaine abuse F14.10 [facility] [place] [address] [id number] [place] [address] October Diabetes E11.9 [facility] [place] [address] [id number] [place] [address] October Essential hypertension I10 and Abscess L02.91 [facility] [place] [address] [id number] [place] [address] Jun [facility] [place] [address] [id number] [place] [address] May Breast cancer screening Z12.39 ; Diabetes E11.9 and Anxiety F41.9 [facility] [place] [address] [facility] [id number] [place] [id number] May, Diabetes E11.9 [facility] [place] [address] [id number] [place] [address] May Diabetes E11.9 and Anemia D64.9 [facility] [place] [address] [id number] [place] [address] May Anxiety F41.9 [facility] [place] [address] [id number] [place] [address] 08 May [facility] [place] [address] [id number] [place] [address] May Dysuria R30.0 [facility] [place] [address] [id number] [place] [address] May [facility] [place] [address] [id number] [place] [address] 05 May Dysuria R30.0 and Vaginal itching L29.8 [facility] [address] [facility] [id number] [place] [address] Apr, [facility] [place] [address] [id number] [place] [address] 14 Apr Diabetes E11.9 ; Dysuria R30.0 ; Diabetic neuropathy E11.40 ; Anemia D64.9 and Vaginal discharge N89.8 [facility] [address] [id number] [address] Jun, [address]65100[place] [id number] Jun, Anemia D64.9 ; Anxiety F41.9 ; Diabetes E11.9 and Diabetic neuropathy E11.40 [address]100[place] [id number] May, [facility] [address] 6829665100[place] [address] Apr, [place] [id number] [place] [id number] Apr, Anemia D64.9 ; Anxiety F41.9 ; Diabetes E11.9 and Diabetic neuropathy E11.40 [place] [id number] [place] [id number] Mar, Acute costochondritis M94.0 [place] [address] [place] [id number] Mar, Bilateral low back pain without sciatica M54.5 and Bereavement Z63.4 [place] [address] [place] [id number] Mar, Obstructive chronic bronchitis with acute exacerbation J44.1 ; Herpes zoster without complication B02.9 [address] [employer] N91.2 [place] [address] [place] [id number] Mar, [place] [address] [place] [id number] Mar, [place] [address] [place] [id number] Feb, History of recent traumatic injury of head V15.52 ; Diabetes type 2, uncontrolled 250.02 and Visual disturbance 368.9 [place] [address] [place] [id number] Feb, History of recent traumatic injury of [...] infection 2004 Hospitalization History in rehab at [facility] 2016 Hospitalization History Stroke 05/2017 Hospitalization History surgeries Hospitalization History Elevated B/S 07/2017 Hospitalization History [facility] - blood clot LRE 10/2017 Hospitalization History [facility] - R ankle clot 11/2017
--- OUTSIDE RECORDS SUMMARY | 2018-05-13 10:51 | XMS REPORT ---
Author Author CHRIS BECKWITH [facility] Address [address] [place] [address] Care Team Providers Care Pressing Department Supervisor Name Role Phone CHRIS BECKWITH Unavailable PROBLEMS Type Condition ICD9-CM Code CBF46-VH Code Onset Dates Condition Status SNOMED Code Problem Sleep apnea in adult G47.30 Active 12498447 Problem Moderately severe depression F32.2 Active 638344509 Problem Hypoglycemia associated with type 2 diabetes mellitus E11.649 Active 684084186 Problem PVD (peripheral vascular disease) I73.9 Active 097611634 Problem PAD (peripheral artery disease) I73.9 Active 929202917 Problem Hypoglycemia E16.2 Active 119471588 Problem Cerebrovascular accident (CVA), unspecified mechanism I63.9 Active 023111397 Problem Breast asymmetry N64.89 Active 484515518 Problem Abnormal mammogram of right breast R92.8 Active 362854793 Problem Diabetic neuropathy E11.40 Active 863986712 Problem Anxiety F41.9 Active 66800627 Problem Obstructive sleep apnea syndrome G47.33 Active 36006501 Problem Stage 2 chronic kidney disease N18.2 Active 450473593 Problem Essential hypertension I10 Active 57648152 Problem Type 2 diabetes mellitus with hyperglycemia E11.65 Active 669316861152491 Problem Cocaine abuse F14.10 Active 86940987 Problem Hyperlipidemia, unspecified E78.5 Active 64138401 ALLERGIES No Information ENCOUNTERS Encounter Location Date Diagnosis [facility] [address] [id number] [place] [address] Nov [facility] [address] [id number] [place] [address] Nov [facility] [address] [id number] [place] [address] Nov PVD (peripheral vascular disease) I73.9 ; Type 2 diabetes mellitus with hyperglycemia E11.65 and PAD (peripheral artery disease) I73.9 [facility] [place] [address] [id number] [place] [address] Nov [facility] [place] [address] [id number] [place] [address] Nov [facility] [place] [address] [id number] [place] [address] Nov [facility] [place] [address] [id number] [address] October [facility] [place] [address] [id number] [place] [address] October [facility] [place] [address] [id number] [place] [address] October Type 2 diabetes mellitus with hyperglycemia E11.65 and Surgical procedure on lower extremity within past 6 months Z98.890 [facility] [place] [address] [id number] [place] [address] October [facility] [place] [address] [id number] [place] [address] [facility] [address] [facility] [id number] [place] [address] October, [facility] [place] [address] [id number] [place] [address] October Sleep apnea in adult G47.30 [facility] [place] [address] [id number] [place] [address] October Type 2 diabetes mellitus with hyperglycemia E11.65 [facility] [place] [address] [id number] [place] [address] Sep [facility] [place] [address] [id number] [place] [address] Sep Breast asymmetry N64.89 [facility] [place] [address] [id number] [place] [address] Sep [facility] [place] [address] [id number] [place] [address] Sep Type 2 diabetes mellitus with hyperglycemia E11.65 ; Cocaine abuse F14.10 and Open wound of right great toe, subsequent encounter S91.101D [facility] [place] [address] [id number] [place] [address] Sep [facility] [place] [address] [id number] [place] [address] Aug [facility] [place] [address] [id number] [place] [address] Aug [facility] [place] [address] [id number] [place] [address] Aug Type 2 diabetes mellitus with hyperglycemia E11.65 [facility] [place] [address] [id number] [place] [address] Aug [facility] [address] [facility] [id number] [place] [address] Aug, [facility] [place] [address] [id number] [place] [address] Jul [facility] [place] [address] [id number] [place] [address] Jul Diabetic neuropathy E11.40 ; Essential hypertension I10 and Type 2 diabetes mellitus with hyperglycemia E11.65 [facility] [place] [address] [id number] [place] [address] Jul [facility] [place] [address] [id number] [place] [address] Jul [facility] [place] [address] [id number] [place] [address] Jul [facility] [place] [address] [id number] [place] [address] Jul [facility] [place] [address] [id number] [place] [address] Jul [facility] [place] [address] [id number] [place] [address] Jul Type 2 diabetes mellitus with hyperglycemia E11.65 ; Open wound of right great toe, subsequent encounter S91.101D ; Essential hypertension I10 and Diabetic neuropathy E11.40 [facility] [id number] [place] [address] Jul, [facility] [place] [address] [id number] [place] [address] Jun [facility] [place] [address] [id number] [place] [address] Jun Type 2 diabetes mellitus with hyperglycemia E11.65 [facility] [place] [address] [id number] [place] [address] Jun [facility] [place] [address] [id number] [place] [address] Jun [facility] [place] [address] [id number] [place] [address] 17 Jun Abnormal mammogram of right breast R92.8 and Breast asymmetry N64.89 [facility] [place] [address] [id number] [place] [address] 15 Jun [facility] [place] [address] [id number] [place] [address] Jun [facility] [place] [address] [id number] [place] [address] May Hypoglycemia E16.2 [facility] [place] [address] [id number] [place] [address] May Abnormal neurological exam R29.90 [facility] [place] [address] [id number] [place] [address] May [facility] [place] [address] [id number] [place] [address] May Type 2 diabetes mellitus with hyperglycemia E11.65 [facility] [place] [address] [id number] [place] [address] May Breast cancer screening Z12.31 and Hematuria, unspecified type R31.9 [facility] [place] [address] [id number] [place] [address] May [facility] [place] [address] [id number] [place] [address] May Type 2 diabetes mellitus with hyperglycemia E11.65 ; Essential hypertension I10 ; Moderately severe depression F32.2 and Confusion R41.0 [place] [address], [place] [address] May, [facility] [place] [address] [id number] [place] [address] May Cerebrovascular accident (CVA), unspecified mechanism I63.9 ; Essential hypertension I10 ; Hyperlipidemia, unspecified E78.5 and Type 2 diabetes mellitus with hyperglycemia E11.65 [place] [address], [place] [address] May, [place] [address], [place] [address] May, [facility] [address] [id number] [place] [address] May [facility] [place] [address] [id number] [place] [address] May Diabetic neuropathy E11.40 and Diabetes E11.9 [facility] [place] [address] [id number] [place] [address] Apr [facility] [place] [address] [id number] [place] [address] Apr Subacute maxillary sinusitis J01.00 ; Hypoglycemia associated with type 2 diabetes mellitus E11.649 and Intractable episodic headache, unspecified headache type R51 [facility] [place] [address] [id number] [place] [address] Apr Diabetic neuropathy E11.40 and Anxiety F41.9 [facility] [place] [address] [id number] [place] [address] Apr [facility] [place] [address] [id number] [place] [address] Apr Type 2 diabetes mellitus with hyperglycemia E11.65 ; Subacute maxillary sinusitis J01.00 ; Diabetic neuropathy E11.40 and Sleep apnea in adult G47.30 [place] [address] [place] [id number], [place] [address] Apr, [facility] [place] [address] [id number] [place] [address] Apr [facility] [place] [address] [id number] [place] [address] Apr [facility] [place] [address] [id number] [place] [address] Apr Subacute maxillary sinusitis J01.00 [place] [address] [place] [address], [place] [address] Apr, Right foot drop M21.371 [facility] [place] [address] [id number] [place] [address] Apr [facility] [place] [address] [id number] [place] [address] Mar [facility] [place] [address] [id number] [place] [address] Mar Essential hypertension I10 ; Type 2 diabetes mellitus with hyperglycemia E11.65 ; Encounter for immunization Z23 ; Cocaine abuse F14.10 and Hyperlipidemia, unspecified E78.5 [facility] [place] [address] [id number] [place] [address] Mar [place] [address] [address] Mar, [facility] [place] [address] [id number] [place] [address] Feb [facility] [place] [address] [id number] [place] [address] Feb Type 2 diabetes mellitus with hyperglycemia E11.65 and Acute right ankle pain M25.571 [facility] [place] [address] [id number] [place] [address] Feb Weight loss R63.4 and Anxiety F41.9 [place] [address], [place] [address] Jan, [place] [address] [place] [id number] [place] [address] Jan, [facility] [address], [place] [address] Jan, [facility] [address], [place] [address] Jan, Diabetes E11.9 [facility] [place] [address] [id number] [place] [address] Jan Sprain of right ankle, unspecified ligament, initial encounter S93.401A [facility] [place] [address] [id number] [place] [address] Jan Essential hypertension I10 ; Anxiety F41.9 and Type 2 diabetes mellitus with hyperglycemia E11.65 [facility] [address] [place] [address] Jan, Diabetes E11.9 [facility] [address] [place] [address] Jan, [facility] [address], [place] [address] Jan, [facility] MAN [address] [id number] [place] [address] Jan [facility] [address], [place] [address] Jan, [facility] [address], [place] [address] Jan, [facility] [address], [place] [address] Jan, [facility] [address] [place] [address] Jan, [facility] [address], [place] [address] Jan, Unintentional weight loss R63.4 ; Stage 2 chronic kidney disease N18.2 ; Exposure to hepatitis C Z20.5 ; Diabetic neuropathy E11.40 ; Obstructive sleep apnea syndrome G47.33 ; Essential hypertension I10 and Type 2 diabetes mellitus with hyperglycemia E11.65 [facility] [address], [place] [address] Jan, [facility] [address] [place] [address] Jan, Type 2 diabetes mellitus with hyperglycemia E11.65 ; Diabetic neuropathy E11.40 and Essential hypertension I10 [facility] [address] [place] [address] Dec, Diabetes E11.9 [facility] [address] [place] [id number] [place] [address] Dec, [facility] [address] [place] [id number] [place] [address] Dec, [place] [address] [place] [id number] [place] [address] Dec, [facility] [address] [place] [address] Dec, Dental examination Z01.20 [facility] [address] [place] [address] Dec, [facility] [address] [place] [address] Dec, Diabetes E11.9 [facility] [address], [place] [address] Dec, Stage 2 chronic kidney disease N18.2 ; Exposure to hepatitis C Z20.5 ; Obstructive sleep apnea syndrome G47.33 and Type 2 diabetes mellitus with hyperglycemia E11.65 [facility] [address], [place] [address] Dec, [facility] [place] [address] [id number] [place] [address] Dec Diabetes E11.9 and Essential hypertension I10 [facility] [address] [place] [address], [place] [address] Nov, Diabetes E11.9 [facility] [address] [facility] [id number] [place] [address] Nov, Right foot pain M79.671 [facility] [place] [address] [facility] [id number] [place] [address] Nov, Right foot pain M79.671 [facility] [place] [address] [id number] [place] [address] Nov Diabetes E11.9 [facility] [place] [address] [id number] [place] [address] Nov Diabetes E11.9 [facility] [address] [facility] [id number] [place] [address] Nov, Dental examination Z01.20 [facility] [place] [address] [id number] [place] [address] Nov Diabetes E11.9 ; Cocaine abuse F14.10 and Shingles (herpes zoster) polyneuropathy B02.23 [facility] [place] [address] [id number] [place] [address] Nov [facility] [address] [facility] [id number] [place] [address] October, [facility] [place] [address] [id number] [place] [address] October [facility] [place] [address] [id number] [place] [address] October Unintentional weight loss R63.4 [facility] [place] [address] [id number] [place] [address] October Abscess L02.91 [facility] [place] [address] [id number] [place] [address] October Diabetes E11.9 ; Unintentional weight loss R63.4 ; History of hematuria Z87.448 and Cocaine abuse F14.10 [facility] [place] [address] [id number] [place] [address] October Diabetes E11.9 [facility] [place] [address] [id number] [place] [address] October Essential hypertension I10 and Abscess L02.91 [facility] [place] [address] [id number] [place] [address] Jun [facility] [place] [address] [id number] [place] [address] May Breast cancer screening Z12.39 ; Diabetes E11.9 and Anxiety F41.9 [facility] [place] [address] [facility] [id number] [place] [address] May, Diabetes E11.9 [facility] [place] [address] [id number] [place] [address] 15 May Diabetes E11.9 and Anemia D64.9 [facility] [place] [address] [id number] [place] [address] 14 May Anxiety F41.9 [facility] [place] [address] [id number] [place] [address] 08 May [facility] [place] [address] [id number] [place] [address] May Dysuria R30.0 [facility] [place] [address] [id number] [place] [address] 06 May [facility] [place] [address] [id number] [place] [address] 05 May Dysuria R30.0 and Vaginal itching L29.8 [facility] [address] [place] [id number], [place] [address] Apr, [facility] [place] [address] [id number] [place] [address] 14 Apr Diabetes E11.9 ; Dysuria R30.0 ; Diabetic neuropathy E11.40 ; Anemia D64.9 and Vaginal discharge N89.8 [facility] [address] [facility] [id number], [place] [address] Jun, [place] [address] [place] [id number] [place] [id number] Jun, Anemia D64.9 ; Anxiety F41.9 ; Diabetes E11.9 and Diabetic neuropathy E11.40 [address] [id number] May, [facility] [address] [place] [address], [place] [address] Apr, [place] [id number] [place] [id number] Apr, Anemia D64.9 ; Anxiety F41.9 ; Diabetes E11.9 and Diabetic neuropathy E11.40 [place] [id number] [place] [id number] Mar, Acute costochondritis M94.0 [place] [id number] [place] [id number] Mar, Bilateral low back pain without sciatica M54.5 and Bereavement Z63.4 [place] [address] [place] [id number] Mar, Obstructive chronic bronchitis with acute exacerbation J44.1 ; Herpes zoster without complication B02.9 and [place] N91.2 [address] [id number] Mar, [place] [address] [id number] Mar, [place] [address] [id number] Feb, History of recent traumatic injury of head V15.52 ; Diabetes type 2, uncontrolled 250.02 and Visual disturbance 368.9 [address] [address] Feb, History of recent traumatic injury of [...] infection 2005 Hospitalization History in rehab at [place] 2016 Hospitalization History Stroke 05/2017 Hospitalization History surgeries Hospitalization History Elevated B/S 07/2017 Hospitalization History [facility] - blood clot LRE 10/2017 Hospitalization History [facility] - R ankle clot 11/2017
--- OUTSIDE RECORDS SUMMARY | 2018-05-13 10:51 | XMS REPORT ---
Author Author CHRIS BECKWITH [facility] Address [address] [place] [address] Care Team Providers Care Math And Science Division Chair Name Role Phone CHRIS BECKWITH Unavailable PROBLEMS Type Condition ICD9-CM Code PDQ93-UT Code Onset Dates Condition Status SNOMED Code Problem Sleep apnea in adult G47.30 Active 69371437 Problem Moderately severe depression F32.2 Active 150509808 Problem Hypoglycemia associated with type 2 diabetes mellitus E11.649 Active 251118246 Problem PVD (peripheral vascular disease) I73.9 Active 653830361 Problem PAD (peripheral artery disease) I73.9 Active 998162586 Problem Hypoglycemia E16.2 Active 916876037 Problem Cerebrovascular accident (CVA), unspecified mechanism I63.9 Active 540868271 Problem Breast asymmetry N64.89 Active 951900766 Problem Abnormal mammogram of right breast R92.8 Active 336591710 Problem Diabetic neuropathy E11.40 Active 027893182 Problem Anxiety F41.9 Active 02472723 Problem Obstructive sleep apnea syndrome G47.33 Active 85798079 Problem Stage 2 chronic kidney disease N18.2 Active 717062697 Problem Essential hypertension I10 Active 17799663 Problem Type 2 diabetes mellitus with hyperglycemia E11.65 Active 480293071943872 Problem Cocaine abuse F14.10 Active 36007308 Problem Hyperlipidemia, unspecified E78.5 Active 89332295 ALLERGIES No Information ENCOUNTERS Encounter Location Date Diagnosis [facility] [address] [id number] [place] [address] Nov [facility] [address] [id number] [place] [address] Nov [facility] [address] [id number] [place] [address] Nov PVD (peripheral vascular disease) I73.9 ; Type 2 diabetes mellitus with hyperglycemia E11.65 and PAD (peripheral artery disease) I73.9 [facility] [place] [address] [id number] [place] [address] Nov [facility] [place] [address] [id number] [place] [address] Nov [facility] [place] [address] [id number] [place] [address] Nov [facility] [place] [address] [id number] [place] [address] October [facility] [place] [address] [id number] [place] [address] October [facility] [place] [address] [id number] [place] [address] October Type 2 diabetes mellitus with hyperglycemia E11.65 and Surgical procedure on lower extremity within past 6 months Z98.890 [facility] [place] [address] [id number] [place] [address] October [facility] [place] [address] [id number] [place] [address] October [facility] [address] [facility] [id number] [place] [address] October, [facility] [place] [address] [id number] [place] [address] October Sleep apnea in adult G47.30 [facility] [place] [address] [id number] [place] [address] October Type 2 diabetes mellitus with hyperglycemia E11.65 [facility] [place] [address] [id number] [place] [address] Sep [facility] [place] [address] [id number] [place] [address] Sep Breast asymmetry N64.89 [facility] [place] [address] [id number] [place] [address] Sep [facility] [place] [address] [id number] [place] [address] Sep Type 2 diabetes mellitus with hyperglycemia E11.65 ; Cocaine abuse F14.10 and Open wound of right great toe, subsequent encounter S91.101D [facility] [place] [address] [id number] [place] [address] Sep [facility] [place] [address] [id number] [place] [address] Aug [facility] [place] [address] [id number] [place] [address] Aug [facility] [place] [address] [id number] [place] [address] Aug Type 2 diabetes mellitus with hyperglycemia E11.65 [facility] [place] [address] [id number] [place] [address] Aug [facility] [address] [facility] [id number] [place] [address] Aug, [facility] [place] [address] [id number] [place] [address] Jul [facility] [place] [address] [id number] [place] [address] Jul Diabetic neuropathy E11.40 ; Essential hypertension I10 and Type 2 diabetes mellitus with hyperglycemia E11.65 [facility] [place] [address] [id number] [place] [address] Jul [facility] [place] [address] [id number] [place] [address] Jul [facility] [place] [address] [id number] [place] [address] Jul [facility] [place] [address] [id number] [place] [address] Jul [facility] [place] [address] [id number] [place] [address] Jul [facility] [place] [address] [id number] [place] [address] Jul Type 2 diabetes mellitus with hyperglycemia E11.65 ; Open wound of right great toe, subsequent encounter S91.101D ; Essential hypertension I10 and Diabetic neuropathy E11.40 [facility] [address] [id number] [place] [id number] Jul, [facility] [place] [address] [id number] [place] [address] Jun [facility] [place] [address] [id number] [place] [address] Jun Type 2 diabetes mellitus with hyperglycemia E11.65 [facility] [place] [address] [id number] [place] [address] Jun [facility] [place] [address] [id number] [place] [address] Jun [facility] [place] [address] [id number] [place] [address] 17 Jun Abnormal mammogram of right breast R92.8 and Breast asymmetry N64.89 [facility] [place] [address] [id number] [place] [address] 15 Jun [facility] [place] [address] [id number] [place] [address] Jun [facility] [place] [address] [id number] [place] [address] May Hypoglycemia E16.2 [facility] [place] [address] [id number] [place] [address] May Abnormal neurological exam R29.90 [facility] [place] [address] [id number] [place] [address] May [facility] [place] [address] [id number] [place] [address] May Type 2 diabetes mellitus with hyperglycemia E11.65 [facility] [place] [address] [id number] [place] [address] May Breast cancer screening Z12.31 and Hematuria, unspecified type R31.9 [facility] [place] [address] [id number] [place] [address] May [facility] [place] [address] [id number] [place] [address] May Type 2 diabetes mellitus with hyperglycemia E11.65 ; Essential hypertension I10 ; Moderately severe depression F32.2 and Confusion R41.0 [place] [address], [place] [address] May, [facility] [place] [address] [id number] [place] [address] May Cerebrovascular accident (CVA), unspecified mechanism I63.9 ; Essential hypertension I10 ; Hyperlipidemia, unspecified E78.5 and Type 2 diabetes mellitus with hyperglycemia E11.65 [place] [address], [place] [address] May, [place] [address], [place] [address] May, [facility] [address] [id number] [place] [address] May [facility] [place] [address] [id number] [place] [address] May Diabetic neuropathy E11.40 and Diabetes E11.9 [facility] [place] [address] [id number] [place] [address] Apr [facility] [place] [address] [id number] [place] [address] Apr Subacute maxillary sinusitis J01.00 ; Hypoglycemia associated with type 2 diabetes mellitus E11.649 and Intractable episodic headache, unspecified headache type R51 [facility] [place] [address] [id number] [place] [address] Apr Diabetic neuropathy E11.40 and Anxiety F41.9 [facility] [place] [address] [id number] [place] [address] Apr [facility] [place] [address] [id number] [place] [address] Apr Type 2 diabetes mellitus with hyperglycemia E11.65 ; Subacute maxillary sinusitis J01.00 ; Diabetic neuropathy E11.40 and Sleep apnea in adult G47.30 [place] [address] [place] [id number] [address] Apr, [facility] [place] [address] [id number] [place] [address] Apr [facility] [place] [address] [id number] [place] [address] Apr [facility] [place] [address] [id number] [place] [address] Apr Subacute maxillary sinusitis J01.00 [place] [address] [place] [address] [place]6535[place], [place] [address] Apr, Right foot drop M21.371 [facility] [place] [address] [id number] [place] [address] Apr [facility] [place] [address] [id number] [place] [address] Mar [facility] [place] [address] [id number] [place] [address] Mar Essential hypertension I10 ; Type 2 diabetes mellitus with hyperglycemia E11.65 ; Encounter for immunization Z23 ; Cocaine abuse F14.10 and Hyperlipidemia, unspecified E78.5 [facility] [place] [address] [id number] [place] [address] Mar [place] [address] [address] Mar, [facility] [place] [address] [id number] [place] [address] Feb [facility] [place] [address] [id number] [place] [address] Feb Type 2 diabetes mellitus with hyperglycemia E11.65 and Acute right ankle pain M25.571 [facility] [place] [address] [id number] [place] [address] Feb Weight loss R63.4 and Anxiety F41.9 [place] [address], [place] [address] Jan, [place] [address] [place] [id number] [place] [address] Jan, [facility] [address], [place] [address] Jan, [facility] [address], [place] [address] Jan, Diabetes E11.9 [facility] [place] [address] [id number] [place] [address] Jan Sprain of right ankle, unspecified ligament, initial encounter S93.401A [facility] [place] [address] [id number] [place] [address] Jan Essential hypertension I10 ; Anxiety F41.9 and Type 2 diabetes mellitus with hyperglycemia E11.65 [facility] [address] [place] [address] Jan, Diabetes E11.9 [facility] [address] [place] [address] Jan, [facility] [address], [place] [address] Jan, [facility] MAN [address] [id number] [place] [address] Jan [facility] [address], [place] [address] Jan, [facility] [address], [place] [address] Jan, [facility] [address], [place] [address] Jan, [facility] [address] [place] [address] Jan, [facility] [address], [place] [address] Jan, Unintentional weight loss R63.4 ; Stage 2 chronic kidney disease N18.2 ; Exposure to hepatitis C Z20.5 ; Diabetic neuropathy E11.40 ; Obstructive sleep apnea syndrome G47.33 ; Essential hypertension I10 and Type 2 diabetes mellitus with hyperglycemia E11.65 [facility] [address], [place] [address] Jan, [facility] [address] [place] [address] Jan, Type 2 diabetes mellitus with hyperglycemia E11.65 ; Diabetic neuropathy E11.40 and Essential hypertension I10 [facility] [address] [place] [address] Dec, Diabetes E11.9 [facility] [address] [place] [id number] [place] [address] Dec, [facility] [address] [place] [id number] [place] [address] Dec, [place] [address] [place] [id number] [place] [address] Dec, [facility] [address] [place] [address] Dec, Dental examination Z01.20 [facility] [address] [place] [address] Dec, [facility] [address] [place] [address] Dec, Diabetes E11.9 [facility] [address], [place] [address] Dec, Stage 2 chronic kidney disease N18.2 ; Exposure to hepatitis C Z20.5 ; Obstructive sleep apnea syndrome G47.33 and Type 2 diabetes mellitus with hyperglycemia E11.65 [facility] [address], [place] [address] Dec, [facility] [place] [address] [id number] [place] [address] Dec Diabetes E11.9 and Essential hypertension I10 [facility] [address] [place] [address], [place] [address] Nov, Diabetes E11.9 [facility] [address] [facility] [id number] [place] [address] Nov, Right foot pain M79.671 [facility] [place] [address] [facility] [id number] [place] [address] Nov, Right foot pain M79.671 [facility] [place] [address] [id number] [place] [address] Nov Diabetes E11.9 [facility] [place] [address] [id number] [place] [address] Nov Diabetes E11.9 [facility] [address] [facility] [id number] [place] [address] Nov, Dental examination Z01.20 [facility] [place] [address] [id number] [place] [address] Nov Diabetes E11.9 ; Cocaine abuse F14.10 and Shingles (herpes zoster) polyneuropathy B02.23 [facility] [place] [address] [id number] [place] [address] Nov [facility] [address] [facility] [id number] [place] [address] October, [facility] [place] [address] [id number] [place] [address] October [facility] [place] [address] [id number] [place] [address] October Unintentional weight loss R63.4 [facility] [place] [address] [id number] [place] [address] October Abscess L02.91 [facility] [place] [address] [id number] [place] [address] October Diabetes E11.9 ; Unintentional weight loss R63.4 ; History of hematuria Z87.448 and Cocaine abuse F14.10 [facility] [place] [address] [id number] [place] [address] October Diabetes E11.9 [facility] [place] [address] [id number] [place] [address] October Essential hypertension I10 and Abscess L02.91 [facility] [place] [address] [id number] [place] [address] Jun [facility] [place] [address] [id number] [place] [address] May Breast cancer screening Z12.39 ; Diabetes E11.9 and Anxiety F41.9 [facility] [place] [address] [facility] [id number] [place] [address] May, Diabetes E11.9 [facility] [place] [address] [id number] [place] [address] 15 May Diabetes E11.9 and Anemia D64.9 [facility] [place] [address] [id number] [place] [address] 14 May Anxiety F41.9 [facility] [place] [address] [id number] [place] [address] 08 May [facility] [place] [address] [id number] [place] [address] May Dysuria R30.0 [facility] [place] [address] [id number] [place] [address] 06 May [facility] [place] [address] [id number] [place] [address] 05 May Dysuria R30.0 and Vaginal itching L29.8 [facility] [address] [place] [address] [id number], [place] [address] Apr, [facility] [place] [address] [id number] [place] [address] 14 Apr Diabetes E11.9 ; Dysuria R30.0 ; Diabetic neuropathy E11.40 ; Anemia D64.9 and Vaginal discharge N89.8 [facility] [address] [facility] [id number] [address] Jun, [place] [address] [place] [id number] [place] [id number] Jun, Anemia D64.9 ; Anxiety F41.9 ; Diabetes E11.9 and Diabetic neuropathy E11.40 [address] [id number] May, [facility] [address] 7653565[place], [place] [address] Apr, [place] [id number] [place] [id number] Apr, Anemia D64.9 ; Anxiety F41.9 ; Diabetes E11.9 and Diabetic neuropathy E11.40 [place] [id number] [place] [id number] Mar, Acute costochondritis M94.0 [place] [id number] [place] [id number] Mar, Bilateral low back pain without sciatica M54.5 and Bereavement Z63.4 [place] [id number] [place] [id number] Mar, Obstructive chronic bronchitis with acute exacerbation J44.1 ; Herpes zoster without complication B02.9 and [place] N91.2 [address] [id number] Mar, [place] [id number] [id number] Mar, [place] [address] [id number] Feb, History of recent traumatic injury of head V15.52 ; Diabetes type 2, uncontrolled 250.02 and Visual disturbance 368.9 [address] [id number] Feb, History of recent traumatic injury of [...] infection 2005 Hospitalization History in rehab at [facility] 2016 Hospitalization History Stroke 05/2017 Hospitalization History surgeries Hospitalization History Elevated B/S 07/2017 Hospitalization History [facility] - blood clot LRE 10/2017 Hospitalization History [facility] - R ankle clot 11/2017
--- OUTSIDE RECORDS SUMMARY | 2018-05-13 10:51 | XMS REPORT ---
Author Author CHRIS BECKWITH [facility] Address [address] [place] [address] Care Team Providers Care Abrasive Sawyer Name Role Phone CHRIS BECKWITH Unavailable PROBLEMS Type Condition ICD9-CM Code NIM02-LQ Code Onset Dates Condition Status SNOMED Code Problem Sleep apnea in adult G47.30 Active 52431053 Problem Moderately severe depression F32.2 Active 090852577 Problem Hypoglycemia associated with type 2 diabetes mellitus E11.649 Active 699622092 Problem PVD (peripheral vascular disease) I73.9 Active 088966788 Problem PAD (peripheral artery disease) I73.9 Active 774291258 Problem Hypoglycemia E16.2 Active 904659146 Problem Cerebrovascular accident (CVA), unspecified mechanism I63.9 Active 145898581 Problem Breast asymmetry N64.89 Active 988012670 Problem Abnormal mammogram of right breast R92.8 Active 460234477 Problem Diabetic neuropathy E11.40 Active 113761201 Problem Anxiety F41.9 Active 70033041 Problem Obstructive sleep apnea syndrome G47.33 Active 18832524 Problem Stage 2 chronic kidney disease N18.2 Active 481482615 Problem Essential hypertension I10 Active 80995222 Problem Type 2 diabetes mellitus with hyperglycemia E11.65 Active [id number] Problem Cocaine abuse F14.10 Active 45810571 Problem Hyperlipidemia, unspecified E78.5 Active 94165843 ALLERGIES No Information ENCOUNTERS Encounter Location Date Diagnosis [facility] [place] [address] [facility] [id number] [place] [address] Dec, [facility] [place] [address] [id number] [place] [address] [facility] [address] [id number] [place] [address] [facility] [place] [address] [id number] [place] [address] Nov PVD (peripheral vascular disease) I73.9 ; Type 2 diabetes mellitus with hyperglycemia E11.65 and PAD (peripheral artery disease) I73.9 [facility] [place] [address] [id number] [place] [address] Nov [facility] [place] [address] [id number] [place] [address] Nov [facility] [place] [address] [id number] [place] [address] Nov [facility] [place] [address] [id number] [place] [address] October [facility] [place] [address] [id number] [place] [address] October [facility] [place] [address] [id number] [place] [address] October Type 2 diabetes mellitus with hyperglycemia E11.65 and Surgical procedure on lower extremity within past 6 months Z98.890 [facility] [place] [address] [id number] [place] [address] October [facility] [place] [address] [id number] [place] [address] October [facility] [address] [facility] [id number] [place] [address] October, [facility] [place] [address] [id number] [place] [address] October Sleep apnea in adult G47.30 [facility] [place] [address] [id number] [place] [address] October Type 2 diabetes mellitus with hyperglycemia E11.65 [facility] [place] [address] [id number] [place] [address] Sep [facility] [place] [address] [id number] [place] [address] Sep Breast asymmetry N64.89 [facility] [place] [address] [id number] [place] [address] Sep [facility] [place] [address] [id number] [place] [address] Sep Type 2 diabetes mellitus with hyperglycemia E11.65 ; Cocaine abuse F14.10 and Open wound of right great toe, subsequent encounter S91.101D [facility] [place] [address] [id number] [place] [address] Sep [facility] [place] [address] [id number] [place] [address] Aug [facility] [place] [address] [id number] [place] [address] Aug [facility] [place] [address] [id number] [place] [address] Aug Type 2 diabetes mellitus with hyperglycemia E11.65 [facility] [place] [address] [id number] [place] [address] Aug [facility] [address] [facility] [id number] [place] [address] Aug, [facility] [place] [address] [id number] [place] [address] Jul [facility] [place] [address] [id number] [place] [address] Jul Diabetic neuropathy E11.40 ; Essential hypertension I10 and Type 2 diabetes mellitus with hyperglycemia E11.65 [facility] [place] [address] [id number] [place] [address] Jul [facility] [place] [address] [id number] [place] [address] Jul [facility] [place] [address] [id number] [place] [address] Jul [facility] [place] [address] [id number] [place] [address] Jul [facility] [place] [address] [id number] [place] [address] Jul [facility] [place] [address] [id number] [place] [address] Jul Type 2 diabetes mellitus with hyperglycemia E11.65 ; Open wound of right great toe, subsequent encounter S91.101D ; Essential hypertension I10 and Diabetic neuropathy E11.[address] [facility] [address] [id number] [place] [address] Jul, [facility] [place] [address] [id number] [place] [address] Jun [facility] [place] [address] [id number] [place] [address] Jun Type 2 diabetes mellitus with hyperglycemia E11.65 [facility] [place] [address] [id number] [place] [address] Jun [facility] [place] [address] [id number] [place] [address] Jun [facility] [place] [address] [id number] [place] [address] Jun Abnormal mammogram of right breast R92.8 and Breast asymmetry N64.89 [facility] [place] [address] [id number] [place] [address] Jun [facility] [place] [address] [id number] [place] [address] Jun [facility] [place] [address] [id number] [place] [address] May Hypoglycemia E16.2 [facility] [place] [address] [id number] [place] [address] May Abnormal neurological exam R29.90 [facility] [place] [address] [id number] [place] [address] May [facility] [place] [address] [id number] [place] [address] May Type 2 diabetes mellitus with hyperglycemia E11.65 [facility] [place] [address] [id number] [place] [address] May Breast cancer screening Z12.31 and Hematuria, unspecified type R31.9 [facility] [place] [address] [id number] [place] [address] May [facility]UROSCIENCESONS [address] [id number] [place] [address] May Type 2 diabetes mellitus with hyperglycemia E11.65 ; Essential hypertension I10 ; Moderately severe depression F32.2 and Confusion R41.0 [place] [address] [id number] [address] May, [address] [facility]PITALVivione BiosciencesCONWAY [address] [id number] [place] [address] May Cerebrovascular accident (CVA), unspecified mechanism I63.9 ; Essential hypertension I10 ; Hyperlipidemia, unspecified E78.5 and Type 2 diabetes mellitus with hyperglycemia E11.65 [place] [address], [place] [address] May, [place] [address] [id number], [place] [address] May, [address] [facility]ITALVivione BiosciencesCONWAY [address] [id number] [place] [address] [facility]PITALVivione BiosciencesCONW[facility] [address] [id number] [place] [address] May Diabetic neuropathy E11.40 and Diabetes E11.9 [facility]ITAL[facility]al[facility] [place] [address] [id number] [place] [address] Apr [facility]ITAL[facility] NEUROSCIENCESONS [address] [id number] [place] [address] Apr Subacute maxillary sinusitis J01.00 ; Hypoglycemia associated with type 2 diabetes mellitus E11.649 and Intractable episodic headache, unspecified headache type R[address] [facility] [place] [address] [id number] [place] [address] Apr Diabetic neuropathy E11.40 and Anxiety F41.9 [facility] [place] [address] [id number] [place] [address] Apr [facility]ITALHeal[facility] K.K [place] [address] [id number] [place] [address] Apr Type 2 diabetes mellitus with hyperglycemia E11.65 ; Subacute maxillary sinusitis J01.00 ; Diabetic neuropathy E11.40 and Sleep apnea in adult G47.30 [address] [address] [id number] [address] [address] Apr, [facility] [place] [address] [id number] [place] [address] Apr [facility] [place] [address] [id number] [place] [address] [address] [facility] [place] [address] [id number] [place] [address] Apr Subacute maxillary sinusitis J01.00 [place] [address], [place] [address] Apr, Right foot drop M21.371 [facility] [place] [address] [id number] [place] [address] Apr [facility] [place] [address] [id number] [place] [address] [facility] [address] [place] [address] [id number] [place] [address] Mar Essential hypertension I10 ; Type 2 diabetes mellitus with hyperglycemia E11.65 ; Encounter for immunization Z23 ; Cocaine abuse F14.10 and Hyperlipidemia, unspecified E78.5 [facility] [place] [address] [id number] [place] [address] Mar [address] [address] [address] [id number], [place] [address] [address] Mar, [facility] [place] [address] [id number] [place] [address] [facility] [address] [place] [address] [id number] [place] [address] Feb Type 2 diabetes mellitus with hyperglycemia E11.65 and Acute right ankle pain M25.571 [facility] [place] [address] [id number] [place] [address] Feb Weight loss R63.4 and Anxiety F41.9 [address] [address] [id number], [place] [address] Jan, [facility] [address], [place] [address] Jan, [facility] [address], [place] [address] Jan, [facility] [place] [address], [place] [address] Jan, Diabetes E11.9 [facility] [place] [address] [id number] [place] [address] Jan Sprain of right ankle, unspecified ligament, initial encounter S93.401A [facility]ITAL[facility] [place] [address] [id number] [place] [address] Jan Essential hypertension I10 ; Anxiety F41.9 and Type 2 diabetes mellitus with hyperglycemia E11.65 [facility] [place] [address], [place] [address] Jan, Diabetes E11.9 [facility] [place] [address], [place] [address] Jan, [facility] [place] [address] [place] [address] Jan, [facility] [place] [address] [id number] [place] [address] Jan [facility] [place] [address], [place] [address] Jan, [facility] [place] [address]65[address], [place] [address] Jan, [facility] [place] [address], [place] [address] Jan, [facility] [address], [place] [address] Jan, [facility] [address]65[address], [place] [address] Jan, Unintentional weight loss R63.4 ; Stage 2 chronic kidney disease N18.2 ; Exposure to hepatitis C Z20.5 ; Diabetic neuropathy E11.40 ; Obstructive sleep apnea syndrome G47.33 ; Essential hypertension I10 and Type 2 diabetes mellitus with hyperglycemia E11.65 [facility] [place] [address]65[address], [place] [address] Jan, [facility] [place] [id number] [place] [address] Jan, Type 2 diabetes mellitus with hyperglycemia E11.65 ; Diabetic neuropathy E11.40 and Essential hypertension I10 [facility] [place] [address] [place] [address] Dec, Diabetes E11.9 [facility] [place] [address] [place] [address] Dec, [facility] [place] [id number] [place] [address] Dec, [facility] [address] [place] [address] Dec, [facility] [place] [id number] [place] [address] Dec, Dental examination Z01.20 [facility] [place] [address] [place] [address] Dec, [facility] [place] [address] [place] [address] Dec, Diabetes E11.9 [facility] [place] [address], [place] [address] Dec, Stage 2 chronic kidney disease N18.2 ; Exposure to hepatitis C Z20.5 ; Obstructive sleep apnea syndrome G47.33 and Type 2 diabetes mellitus with hyperglycemia E11.65 [facility] [address], [place] [address] Dec, [facility] [place] [address] [id number] [place] [address] Dec Diabetes E11.9 and Essential hypertension I10 [facility] [place] [address] [facility] [id number] [place] [address] Nov, Diabetes E11.9 [facility] [address] [id number] [address] Nov, Right foot pain M79.671 [facility] [address] [id number] [address] Nov, Right foot pain M79.671 [facility] [place] [address] [id number] [place] [address] Nov Diabetes E11.9 [facility] [place] [address] [id number] [place] [address] Nov Diabetes E11.9 [facility] [address] [id number] [address] Nov, Dental examination Z01.[address] [facility] [place] [address] [id number] [place] [address] Nov Diabetes E11.9 ; Cocaine abuse F14.10 and Shingles (herpes zoster) polyneuropathy B02.23 [facility] [place] [address] [id number] [place] [address] Nov [facility] [place] [address] [facility] [id number] [place] [address] October, [facility] [place] [address] [id number] [place] [address] October [facility] [place] [address] [id number] [place] [address] October Unintentional weight loss R63.[address] [facility] [place] [address] [id number] [place] [address] October Abscess L02.91 [facility] [place] [address] [id number] [place] [address] October Diabetes E11.9 ; Unintentional weight loss R63.4 ; History of hematuria Z87.448 and Cocaine abuse F14.[address] [facility] [place] [address] [id number] [place] [address] October Diabetes E11.9 [facility] [place] [address] [id number] [place] [address] October Essential hypertension I10 and Abscess L02.91 [facility] [place] [address] [id number] [place] [address] Jun [facility] [place] [address] [id number] [place] [address] May Breast cancer screening Z12.39 ; Diabetes E11.9 and Anxiety F41.9 [facility] [place] [address] [facility] [id number] [place] [address] May, Diabetes E11.9 [facility] [place] [address] [id number] [place] [address] May Diabetes E11.9 and Anemia D64.9 [facility] [place] [address] [id number] [place] [address] May Anxiety F41.9 [facility] [place] [address] [id number] [place] [address] 08 May [facility] [place] [address] [id number] [place] [address] May Dysuria R30.0 [facility] [place] [address] [id number] [place] [address] May [facility] [place] [address] [id number] [place] [address] 05 May Dysuria R30.0 and Vaginal itching L29.8 [facility] [place] [address] [facility] [id number] [place] [address] Apr, [facility] [place] [address] [id number] [place] [address] 14 Apr Diabetes E11.9 ; Dysuria R30.0 ; Diabetic neuropathy E11.40 ; Anemia D64.9 and Vaginal discharge N89.8 [facility] [address] [id number], [place] [address] Jun, [address]65[address] [id number] Jun, Anemia D64.9 ; Anxiety F41.9 ; Diabetes E11.9 and Diabetic neuropathy E11.40 [address] [id number] May, [facility] [place] [address] 4433865100[place], [place] [address] Apr, [place] [id number] [place] [id number] Apr, Anemia D64.9 ; Anxiety F41.9 ; Diabetes E11.9 and Diabetic neuropathy E11.40 [address] [place] [place] [id number] Mar, Acute costochondritis M94.0 [address] [place] [place] [id number] Mar, Bilateral low back pain without sciatica M54.5 and Bereavement Z63.4 [address] [place] [place] [phone] Mar, Obstructive chronic bronchitis with acute exacerbation J44.1 ; Herpes zoster without complication B02.9 and [place] N91.2 [address] [place] [id number] Mar, [place] [id number] [place] [address] [id number] Mar, [place] [address] [place] [phone] Feb, History of recent traumatic injury of head V15.52 ; Diabetes type 2, uncontrolled 250.02 and Visual disturbance 368.9 [address] [id number] [place] [address] [phone] Feb, History of recent traumatic injury of [...] infection 2004 Hospitalization History in rehab at [facility] 2016 Hospitalization History Stroke 05/2017 Hospitalization History surgeries Hospitalization History Elevated B/S 07/2017 Hospitalization History [facility] - blood clot LRE 10/2017 Hospitalization History [facility] - R ankle clot 11/2017
--- OUTSIDE RECORDS SUMMARY | 2018-05-13 10:52 | XMS REPORT ---
Author Author CHRIS BECKWITH [facility] Address [address] [place] [address] Care Team Providers Care Financial Sales Consultant Name Role Phone CHRIS BECKWITH Unavailable PROBLEMS Type Condition ICD9-CM Code [id number] Code Onset Dates Condition Status SNOMED Code Problem Sleep apnea in adult G47.30 Active 43031804 Problem Moderately severe depression F32.2 Active 559073098 Problem Hypoglycemia associated with type 2 diabetes mellitus E11.649 Active 773474933 Problem PVD (peripheral vascular disease) I73.9 Active 190928497 Problem PAD (peripheral artery disease) I73.9 Active 201614101 Problem Hypoglycemia E16.2 Active 611633300 Problem Cerebrovascular accident (CVA), unspecified mechanism I63.9 Active 633761267 Problem Breast asymmetry N64.89 Active 456167107 Problem Abnormal mammogram of right breast R92.8 Active 140174354 Problem Diabetic neuropathy E11.40 Active 334765764 Problem Anxiety F41.9 Active 75773572 Problem Obstructive sleep apnea syndrome G47.33 Active 12645121 Problem Stage 2 chronic kidney disease N18.2 Active 559867836 Problem Essential hypertension I10 Active 36801227 Problem Type 2 diabetes mellitus with hyperglycemia E11.65 Active 618351855558153 Problem Cocaine abuse F14.10 Active 35507486 Problem Hyperlipidemia, unspecified E78.5 Active 38788942 ALLERGIES No Information ENCOUNTERS Encounter Location Date Diagnosis [facility] [address] [id number] [place] [address] Nov [facility] [address] [id number] [place] [address] Nov [facility] [address] [id number] [place] [address] Nov PVD (peripheral vascular disease) I73.9 ; Type 2 diabetes mellitus with hyperglycemia E11.65 and PAD (peripheral artery disease) I73.9 [facility] [place] [address] [id number] [place] [address] Nov [facility] [place] [address] [id number] [place] [address] Nov [facility] [place] [address] [id number] [place] [address] Nov [facility] [place] [address] [id number] [place] [address] October [facility] [place] [address] [id number] [place] [address] October [facility] [place] [address] [id number] [place] [address] October Type 2 diabetes mellitus with hyperglycemia E11.65 and Surgical procedure on lower extremity within past 6 months Z98.890 [facility] [place] [address] [id number] [place] [address] October [facility] [place] [address] [id number] [place] [address] [facility] [address] [facility] [id number] [place] [address] October, [facility] [place] [address] [id number] [place] [address] October Sleep apnea in adult G47.30 [facility] [place] [address] [id number] [place] [address] October Type 2 diabetes mellitus with hyperglycemia E11.65 [facility] [place] [address] [id number] [place] [address] Sep [facility] [place] [address] [id number] [place] [address] Sep Breast asymmetry N64.89 [facility] [place] [address] [id number] [place] [address] Sep [facility] [place] [address] [id number] [place] [address] Sep Type 2 diabetes mellitus with hyperglycemia E11.65 ; Cocaine abuse F14.10 and Open wound of right great toe, subsequent encounter S91.101D [facility] [place] [address] [id number] [place] [address] Sep [facility] [place] [address] [id number] [place] [address] Aug [facility] [place] [address] [id number] [place] [address] Aug [facility] [place] [address] [id number] [place] [address] Aug Type 2 diabetes mellitus with hyperglycemia E11.65 [facility] [place] [address] [id number] [place] [address] Aug [facility] [address] [facility] [id number] [place] [address] Aug, [facility] [place] [address] [id number] [place] [address] Jul [facility] [place] [address] [id number] [place] [address] Jul Diabetic neuropathy E11.40 ; Essential hypertension I10 and Type 2 diabetes mellitus with hyperglycemia E11.65 [facility] [place] [address] [id number] [place] [address] Jul [facility] [place] [address] [id number] [place] [address] Jul [facility] [place] [address] [id number] [place] [address] Jul [facility] [place] [address] [id number] [place] [address] Jul [facility] [place] [address] [id number] [place] [address] Jul [facility] [place] [address] [id number] [place] [address] Jul Type 2 diabetes mellitus with hyperglycemia E11.65 ; Open wound of right great toe, subsequent encounter S91.101D ; Essential hypertension I10 and Diabetic neuropathy E11.40 [facility] [address] [id number] [place] [id number] Jul, [facility] [place] [address] [id number] [place] [address] Jun [facility] [place] [address] [id number] [place] [address] Jun Type 2 diabetes mellitus with hyperglycemia E11.65 [facility] [place] [address] [id number] [place] [address] Jun [facility] [place] [address] [id number] [place] [address] Jun [facility] [place] [address] [id number] [place] [address] 17 Jun Abnormal mammogram of right breast R92.8 and Breast asymmetry N64.89 [facility] [place] [address] [id number] [place] [address] 15 Jun [facility] [place] [address] [id number] [place] [address] Jun [facility] [place] [address] [id number] [place] [address] May Hypoglycemia E16.2 [facility] [place] [address] [id number] [place] [address] May Abnormal neurological exam R29.90 [facility] [place] [address] [id number] [place] [address] May [facility] [place] [address] [id number] [place] [address] May Type 2 diabetes mellitus with hyperglycemia E11.65 [facility] [place] [address] [id number] [place] [address] May Breast cancer screening Z12.31 and Hematuria, unspecified type R31.9 [facility] [place] [address] [id number] [place] [address] May [facility] [place] [address] [id number] [place] [address] May Type 2 diabetes mellitus with hyperglycemia E11.65 ; Essential hypertension I10 ; Moderately severe depression F32.2 and Confusion R41.0 [place] [address] [address] May, [facility] [place] [address] [id number] [place] [address] May Cerebrovascular accident (CVA), unspecified mechanism I63.9 ; Essential hypertension I10 ; Hyperlipidemia, unspecified E78.5 and Type 2 diabetes mellitus with hyperglycemia E11.65 [place] [address] [address] May, [place] [address] [address] May, [facility] [address] [id number] [place] [address] May [facility] [place] [address] [id number] [place] [address] May Diabetic neuropathy E11.40 and Diabetes E11.9 [facility] [place] [address] [id number] [place] [address] Apr [facility] [place] [address] [id number] [place] [address] Apr Subacute maxillary sinusitis J01.00 ; Hypoglycemia associated with type 2 diabetes mellitus E11.649 and Intractable episodic headache, unspecified headache type R51 [facility] [place] [address] [id number] [place] [address] Apr Diabetic neuropathy E11.40 and Anxiety F41.9 [facility] [place] [address] [id number] [place] [address] Apr [facility] [place] [address] [id number] [place] [address] Apr Type 2 diabetes mellitus with hyperglycemia E11.65 ; Subacute maxillary sinusitis J01.00 ; Diabetic neuropathy E11.40 and Sleep apnea in adult G47.30 [place] [address] [place] [id number] [address] Apr, [facility] [place] [address] [id number] [place] [address] Apr [facility] [place] [address] [id number] [place] [address] Apr [facility] [place] [address] [id number] [place] [address] Apr Subacute maxillary sinusitis J01.00 [place] [address] [place] 8054765100[place] [address] Apr, Right foot drop M21.371 [facility] [place] [address] [id number] [place] [address] Apr [facility] [place] [address] [id number] [place] [address] Mar [facility] [place] [address] [id number] [place] [address] Mar Essential hypertension I10 ; Type 2 diabetes mellitus with hyperglycemia E11.65 ; Encounter for immunization Z23 ; Cocaine abuse F14.10 and Hyperlipidemia, unspecified E78.5 [facility] [place] [address] [id number] [place] [address] Mar [place] [address] [address] Mar, [facility] [place] [address] [id number] [place] [address] Feb [facility] [place] [address] [id number] [place] [address] Feb Type 2 diabetes mellitus with hyperglycemia E11.65 and Acute right ankle pain M25.571 [facility] [place] [address] [id number] [place] [address] Feb Weight loss R63.4 and Anxiety F41.9 [place] [address] [address] Jan, [place] [address] [place] [id number] [place] [address] Jan, [facility] [address] [address] Jan, [facility] [address] [address] Jan, Diabetes E11.9 [facility] [place] [address] [id number] [place] [address] Jan Sprain of right ankle, unspecified ligament, initial encounter S93.401A [facility] [place] [address] [id number] [place] [address] Jan Essential hypertension I10 ; Anxiety F41.9 and Type 2 diabetes mellitus with hyperglycemia E11.65 [facility] [address] [place] [address] Jan, Diabetes E11.9 [facility] [address] [place] [address] Jan, [facility] [address] [address] Jan, [facility] MAN [address] [id number] [place] [address] Jan [facility] [address] [address] Jan, [facility] [address] [address] Jan, [facility] [address] [address] Jan, [facility] [address] [place] [address] Jan, [facility] [address] [address] Jan, Unintentional weight loss R63.4 ; Stage 2 chronic kidney disease N18.2 ; Exposure to hepatitis C Z20.5 ; Diabetic neuropathy E11.40 ; Obstructive sleep apnea syndrome G47.33 ; Essential hypertension I10 and Type 2 diabetes mellitus with hyperglycemia E11.65 [facility] [address] [address] Jan, [facility] [address] [place] [address] Jan, Type 2 diabetes mellitus with hyperglycemia E11.65 ; Diabetic neuropathy E11.40 and Essential hypertension I10 [facility] [address] [place] [address] Dec, Diabetes E11.9 [facility] [address] [place] [id number] [place] [address] Dec, [facility] [address] [place] [id number] [place] [address] Dec, [place] [address] [place] [id number] [place] [address] Dec, [facility] [address] [place] [address] Dec, Dental examination Z01.20 [facility] [address] [place] [address] Dec, [facility] [address] [place] [address] Dec, Diabetes E11.9 [facility] [address] [address] Dec, Stage 2 chronic kidney disease N18.2 ; Exposure to hepatitis C Z20.5 ; Obstructive sleep apnea syndrome G47.33 and Type 2 diabetes mellitus with hyperglycemia E11.65 [facility] [address] [address] Dec, [facility] [place] [address] [id number] [place] [address] Dec Diabetes E11.9 and Essential hypertension I10 [facility] [address] [place] [address], [place] [address] Nov, Diabetes E11.[address] [facility] [address] [facility] [id number] [place] [address] Nov, Right foot pain M79.671 [facility] [address] [facility] [id number] [place] [address] Nov, Right foot pain M79.671 [facility] [place] [address] [id number] [place] [address] Nov Diabetes E11.9 [facility] [place] [address] [id number] [place] [address] Nov Diabetes E11.9 [facility] [address] [facility] [id number] [place] [address] Nov, Dental examination Z01.20 [facility] [place] [address] [id number] [place] [address] Nov Diabetes E11.9 ; Cocaine abuse F14.10 and Shingles (herpes zoster) polyneuropathy B02.23 [facility] [place] [address] [id number] [place] [address] [address] [facility] [address] [facility] [id number] [place] [address] October, [facility] [place] [address] [id number] [place] [address] October [facility] [place] [address] [id number] [place] [address] October Unintentional weight loss R63.4 [facility] [place] [address] [id number] [place] [address] October Abscess L02.91 [facility] [place] [address] [id number] [place] [address] October Diabetes E11.9 ; Unintentional weight loss R63.4 ; History of hematuria Z87.448 and Cocaine abuse F14.10 [facility] [place] [address] [id number] [place] [address] October Diabetes E11.9 [facility] [place] [address] [id number] [place] [address] October Essential hypertension I10 and Abscess L02.91 [facility] [place] [address] [id number] [place] [address] Jun [facility] [place] [address] [id number] [place] [address] May Breast cancer screening Z12.39 ; Diabetes E11.9 and Anxiety F41.9 [facility] [place] [address] [facility] [id number] [place] [address] May, Diabetes E11.9 [facility] [place] [address] [id number] [place] [address] 15 May Diabetes E11.9 and Anemia D64.9 [facility] [place] [address] [id number] [place] [address] 14 May Anxiety F41.9 [facility] [place] [address] [id number] [place] [address] 08 May [facility] [place] [address] [id number] [place] [address] May Dysuria R30.0 [facility] [place] [address] [id number] [place] [address] 06 May [facility] [place] [address] [id number] [place] [address] 05 May Dysuria R30.0 and Vaginal itching L29.8 [facility] [address] [place] [id number] [address] Apr, [facility] [place] [address] [id number] [place] [address] 14 Apr Diabetes E11.9 ; Dysuria R30.0 ; Diabetic neuropathy E11.40 ; Anemia D64.9 and Vaginal discharge N89.8 [facility] [address] [facility] [id number] [address] Jun, [place] [address] [place] [id number] [place] [id number] Jun, Anemia D64.9 ; Anxiety F41.9 ; Diabetes E11.9 and Diabetic neuropathy E11.40 [address]005[address] [id number] May, [facility] [address] [place] 8054765100[place] [address] Apr, [place] [id number] [place] [id number] Apr, Anemia D64.9 ; Anxiety F41.9 ; Diabetes E11.9 and Diabetic neuropathy E11.40 [place] [id number] [place] [id number] Mar, Acute costochondritis M94.0 [place] [id number] [place] [id number] Mar, Bilateral low back pain without sciatica M54.5 and Bereavement Z63.4 [place] [address] [place] [id number] Mar, Obstructive chronic bronchitis with acute exacerbation J44.1 ; Herpes zoster without complication B02.9 and [place] N91.[address] [address] Mar, [place] [address]1265[address] [id number] Mar, [place] [address]1265[address] [id number] Feb, History of recent traumatic injury of head V15.52 ; Diabetes type 2, uncontrolled 250.02 and Visual disturbance 368.[address] [address] Feb, History of recent traumatic injury of head V15.52 ; Visual disturbance 368.9 and Diabetes type 2, uncontrolled 250.02 IMMUNIZATIONS No Known Immunizations SOCIAL HISTORY Never Assessed REASON FOR VISIT med refill metformin PLAN OF CARE VITAL SIGNS MEDICATIONS Medication [...] infection 2005 Hospitalization History in rehab at [place] 2016 Hospitalization History Stroke 05/2017 Hospitalization History surgeries Hospitalization History Elevated B/S 07/2017 Hospitalization History [facility] - blood clot LRE 10/2017 Hospitalization History [facility] - R ankle clot 11/2017
--- OUTSIDE RECORDS SUMMARY | 2018-05-13 10:52 | XMS REPORT ---
Author Author CHRIS BECKWITH [facility] Address [address] [place] [address] Care Team Providers Care Parachute Repairer Name Role Phone CHRIS BECKWITH Unavailable PROBLEMS Type Condition ICD9-CM Code YWO33-SE Code Onset Dates Condition Status SNOMED Code Problem Sleep apnea in adult G47.30 Active 53527699 Problem Moderately severe depression F32.2 Active 087220507 Problem Hypoglycemia associated with type 2 diabetes mellitus E11.649 Active 482841939 Problem PVD (peripheral vascular disease) I73.9 Active 787117379 Problem PAD (peripheral artery disease) I73.9 Active 748779990 Problem Hypoglycemia E16.2 Active 364303804 Problem Cerebrovascular accident (CVA), unspecified mechanism I63.9 Active 170956461 Problem Breast asymmetry N64.89 Active 225135726 Problem Abnormal mammogram of right breast R92.8 Active 880226973 Problem Diabetic neuropathy E11.40 Active 232702099 Problem Anxiety F41.9 Active 24645176 Problem Obstructive sleep apnea syndrome G47.33 Active 53066469 Problem Stage 2 chronic kidney disease N18.2 Active 821574651 Problem Essential hypertension I10 Active 37342619 Problem Type 2 diabetes mellitus with hyperglycemia E11.65 Active 059455642075074 Problem Cocaine abuse F14.10 Active 79653828 Problem Hyperlipidemia, unspecified E78.5 Active 68231101 ALLERGIES No Information ENCOUNTERS Encounter Location Date Diagnosis [facility] [address] [id number] [place] [address] Nov [facility] [address] [id number] [place] [address] Nov [facility] [address] [id number] [place] [address] Nov PVD (peripheral vascular disease) I73.9 ; Type 2 diabetes mellitus with hyperglycemia E11.65 and PAD (peripheral artery disease) I73.9 [facility] [place] [address] [id number] [place] [address] Nov [facility] [place] [address] [id number] [place] [address] Nov [facility] [place] [address] [id number] [place] [address] Nov [facility] [place] [address] [id number] [place] [address] October [facility] [place] [address] [id number] [place] [address] October [facility] [place] [address] [id number] [place] [address] October Type 2 diabetes mellitus with hyperglycemia E11.65 and Surgical procedure on lower extremity within past 6 months Z98.890 [facility] [place] [address] [id number] [place] [address] October [facility] [place] [address] [id number] [place] [address] October [facility] [address] [facility] [id number] [place] [address] October, [facility] [place] [address] [id number] [place] [address] October Sleep apnea in adult G47.30 [facility] [place] [address] [id number] [place] [address] October Type 2 diabetes mellitus with hyperglycemia E11.65 [facility] [place] [address] [id number] [place] [address] Sep [facility] [place] [address] [id number] [place] [address] Sep Breast asymmetry N64.89 [facility] [place] [address] [id number] [place] [address] Sep [facility] [place] [address] [id number] [place] [address] Sep Type 2 diabetes mellitus with hyperglycemia E11.65 ; Cocaine abuse F14.10 and Open wound of right great toe, subsequent encounter S91.101D [facility] [place] [address] [id number] [place] [address] Sep [facility] [place] [address] [id number] [place] [address] Aug [facility] [place] [address] [id number] [place] [address] Aug [facility] [place] [address] [id number] [place] [address] Aug Type 2 diabetes mellitus with hyperglycemia E11.65 [facility] [place] [address] [id number] [place] [address] Aug [facility] [address] [facility] [id number] [place] [address] Aug, [facility] [place] [address] [id number] [place] [address] Jul [facility] [place] [address] [id number] [place] [address] Jul Diabetic neuropathy E11.40 ; Essential hypertension I10 and Type 2 diabetes mellitus with hyperglycemia E11.65 [facility] [place] [address] [id number] [place] [address] Jul [facility] [place] [address] [id number] [place] [address] Jul [facility] [place] [address] [id number] [place] [address] Jul [facility] [place] [address] [id number] [place] [address] Jul [facility] [place] [address] [id number] [place] [address] Jul [facility] [place] [address] [id number] [place] [address] Jul Type 2 diabetes mellitus with hyperglycemia E11.65 ; Open wound of right great toe, subsequent encounter S91.101D ; Essential hypertension I10 and Diabetic neuropathy E11.40 [facility] [address] [id number] [place] [id number] Jul, [facility] [place] [address] [id number] [place] [address] Jun [facility] [place] [address] [id number] [place] [address] Jun Type 2 diabetes mellitus with hyperglycemia E11.65 [facility] [place] [address] [id number] [place] [address] Jun [facility] [place] [address] [id number] [place] [address] Jun [facility] [place] [address] [id number] [place] [address] 17 Jun Abnormal mammogram of right breast R92.8 and Breast asymmetry N64.89 [facility] [place] [address] [id number] [place] [address] 15 Jun [facility] [place] [address] [id number] [place] [address] Jun [facility] [place] [address] [id number] [place] [address] May Hypoglycemia E16.2 [facility] [place] [address] [id number] [place] [address] May Abnormal neurological exam R29.90 [facility] [place] [address] [id number] [place] [address] May [facility] [place] [address] [id number] [place] [address] May Type 2 diabetes mellitus with hyperglycemia E11.65 [facility] [place] [address] [id number] [place] [address] May Breast cancer screening Z12.31 and Hematuria, unspecified type R31.9 [facility] [place] [address] [id number] [place] [address] May [facility] [place] [address] [id number] [place] [address] May Type 2 diabetes mellitus with hyperglycemia E11.65 ; Essential hypertension I10 ; Moderately severe depression F32.2 and Confusion R41.0 [place] [address] [address] May, [facility] [place] [address] [id number] [place] [address] May Cerebrovascular accident (CVA), unspecified mechanism I63.9 ; Essential hypertension I10 ; Hyperlipidemia, unspecified E78.5 and Type 2 diabetes mellitus with hyperglycemia E11.65 [place] [address], [place] [address] May, [place] [address], [place] [address] May, [facility]ies[facility] [address] [id number] [place] [address] May [facility] [place] [address] [id number] [place] [address] May Diabetic neuropathy E11.40 and Diabetes E11.9 [facility] [place] [address] [id number] [place] [address] Apr [facility] [place] [address] [id number] [place] [address] Apr Subacute maxillary sinusitis J01.00 ; Hypoglycemia associated with type 2 diabetes mellitus E11.649 and Intractable episodic headache, unspecified headache type R51 [facility] [place] [address] [id number] [place] [address] Apr Diabetic neuropathy E11.40 and Anxiety F41.9 [facility] [place] [address] [id number] [place] [address] Apr [facility] [place] [address] [id number] [place] [address] Apr Type 2 diabetes mellitus with hyperglycemia E11.65 ; Subacute maxillary sinusitis J01.00 ; Diabetic neuropathy E11.40 and Sleep apnea in adult G47.30 [place] [address] [id number], [place] [address] Apr, [facility] [place] [address] [id number] [place] [address] Apr [facility] [place] [address] [id number] [place] [address] Apr [facility] [place] [address] [id number] [place] [address] Apr Subacute maxillary sinusitis J01.00 [place] [address] [address] [address] Apr, Right foot drop M21.371 [facility] [place] [address] [id number] [place] [address] Apr [facility] [place] [address] [id number] [place] [address] Mar [facility] [place] [address] [id number] [place] [address] Mar Essential hypertension I10 ; Type 2 diabetes mellitus with hyperglycemia E11.65 ; Encounter for immunization Z23 ; Cocaine abuse F14.10 and Hyperlipidemia, unspecified E78.5 [facility] [place] [address] [id number] [place] [address] Mar [place] [address] [address] Mar, [facility] [place] [address] [id number] [place] [address] Feb [facility] [place] [address] [id number] [place] [address] Feb Type 2 diabetes mellitus with hyperglycemia E11.65 and Acute right ankle pain M25.571 [facility] [place] [address] [id number] [place] [address] Feb Weight loss R63.4 and Anxiety F41.9 [place] [address], [place] [address] Jan, [place] [address] [place] [id number] [place] [address] Jan, [facility] [address], [place] [address] Jan, [facility] [address], [place] [address] Jan, Diabetes E11.9 [facility] [place] [address] [id number] [place] [address] Jan Sprain of right ankle, unspecified ligament, initial encounter S93.401A [facility] [place] [address] [id number] [place] [address] Jan Essential hypertension I10 ; Anxiety F41.9 and Type 2 diabetes mellitus with hyperglycemia E11.65 [facility] [address] [place] [address] Jan, Diabetes E11.9 [facility] [address] [place] [address] Jan, [facility] [address], [place] [address] Jan, [facility] MAN [address] [id number] [place] [address] Jan [facility] [address], [place] [address] Jan, [facility] [address], [place] [address] Jan, [facility] [address], [place] [address] Jan, [facility] [address] [place] [address] Jan, [facility] [address], [place] [address] Jan, Unintentional weight loss R63.4 ; Stage 2 chronic kidney disease N18.2 ; Exposure to hepatitis C Z20.5 ; Diabetic neuropathy E11.40 ; Obstructive sleep apnea syndrome G47.33 ; Essential hypertension I10 and Type 2 diabetes mellitus with hyperglycemia E11.65 [facility] [address], [place] [address] Jan, [facility] [address] [place] [address] Jan, Type 2 diabetes mellitus with hyperglycemia E11.65 ; Diabetic neuropathy E11.40 and Essential hypertension I10 [facility] [address] [place] [address] Dec, Diabetes E11.9 [facility] [address] [place] [id number] [place] [address] Dec, [facility] [address] [id number] [place] [address] Dec, [place] [address] [address] [id number] [place] [address] Dec, [facility] [address] [place] [address] Dec, Dental examination Z01.20 [facility] [address] [place] [address] Dec, [facility] [address] [place] [address] Dec, Diabetes E11.9 [facility] [address], [place] [address] Dec, Stage 2 chronic kidney disease N18.2 ; Exposure to hepatitis C Z20.5 ; Obstructive sleep apnea syndrome G47.33 and Type 2 diabetes mellitus with hyperglycemia E11.65 [facility] [address], [place] [address] Dec, [facility] [place] [address] [id number] [place] [address] Dec Diabetes E11.9 and Essential hypertension I10 [facility] [address] [place] [address], [place] [address] Nov, Diabetes E11.9 [facility] [address] [facility] [id number] [place] [address] Nov, Right foot pain M79.671 [facility] [place] [address] [facility] [id number] [place] [address] Nov, Right foot pain M79.671 [facility] [place] [address] [id number] [place] [address] Nov Diabetes E11.9 [facility] [place] [address] [id number] [place] [address] Nov Diabetes E11.9 [facility] [address] [facility] [id number] [place] [address] Nov, Dental examination Z01.20 [facility] [place] [address] [id number] [place] [address] Nov Diabetes E11.9 ; Cocaine abuse F14.10 and Shingles (herpes zoster) polyneuropathy B02.23 [facility] [place] [address] [id number] [place] [address] Nov [facility] [address] [facility] [id number] [place] [address] October, [facility] [place] [address] [id number] [place] [address] October [facility] [place] [address] [id number] [place] [address] October Unintentional weight loss R63.4 [facility] [place] [address] [id number] [place] [address] October Abscess L02.91 [facility] [place] [address] [id number] [place] [address] October Diabetes E11.9 ; Unintentional weight loss R63.4 ; History of hematuria Z87.448 and Cocaine abuse F14.10 [facility] [place] [address] [id number] [place] [address] October Diabetes E11.9 [facility] [place] [address] [id number] [place] [address] October Essential hypertension I10 and Abscess L02.91 [facility] [place] [address] [id number] [place] [address] Jun [facility] [place] [address] [id number] [place] [address] May Breast cancer screening Z12.39 ; Diabetes E11.9 and Anxiety F41.9 [facility] [place] [address] [facility] [id number] [place] [address] May, Diabetes E11.9 [facility] [place] [address] [id number] [place] [address] 15 May Diabetes E11.9 and Anemia D64.9 [facility] [place] [address] [id number] [place] [address] 14 May Anxiety F41.9 [facility] [place] [address] [id number] [place] [address] 08 May [facility] [place] [address] [id number] [place] [address] May Dysuria R30.0 [facility] [place] [address] [id number] [place] [address] 06 May [facility] [place] [address] [id number] [place] [address] 05 May Dysuria R30.0 and Vaginal itching L29.8 [facility] [address] [place] [address] [id number], [place] [address] Apr, [facility] [place] [address] [id number] [place] [address] 14 Apr Diabetes E11.9 ; Dysuria R30.0 ; Diabetic neuropathy E11.40 ; Anemia D64.9 and Vaginal discharge N89.8 [facility] [address] [facility] [id number] [address] Jun, [place] [address] [place] [id number] [place] [id number] Jun, Anemia D64.9 ; Anxiety F41.9 ; Diabetes E11.9 and Diabetic neuropathy E11.40 [address] [id number] May, [facility] [address] [place] [address] 2035565100[place], [place] [address] Apr, [place] [id number] [place] [id number] Apr, Anemia D64.9 ; Anxiety F41.9 ; Diabetes E11.9 and Diabetic neuropathy E11.40 [place] [address] [place] [id number] Mar, Acute costochondritis M94.0 [place] [address] [place] [id number] Mar, Bilateral low back pain without sciatica M54.5 and Bereavement Z63.4 [place] [address] [place] [id number] Mar, Obstructive chronic bronchitis with acute exacerbation J44.1 ; Herpes zoster without complication B02.9 and [place] N91.[address] [id number] Mar, [place] [address] [id number] Mar, [place] [address] [id number] Feb, History of recent traumatic injury of head V15.52 ; Diabetes type 2, uncontrolled 250.02 and Visual disturbance 368.[address] [address] Feb, History of recent traumatic injury of head V15.52 ; Visual disturbance 368.9 and Diabetes type 2, uncontrolled 250.02 IMMUNIZATIONS No Known Immunizations SOCIAL HISTORY Never Assessed REASON FOR VISIT Disability paperwork PLAN OF CARE VITAL SIGNS MEDICATIONS Unknown [...] infection 2005 Hospitalization History in rehab at [facility] 2016 Hospitalization History Stroke 05/2017 Hospitalization History surgeries Hospitalization History Elevated B/S 07/2017 Hospitalization History [facility] - blood clot LRE 10/2017 Hospitalization History [facility] - R ankle clot 11/2017
--- OUTSIDE RECORDS SUMMARY | 2018-05-13 10:53 | XMS REPORT ---
Author Author CHRIS BECKWITH [facility] Address [address] [place] [address] Care Team Providers Care Application Tester Name Role Phone CHRIS BECKWITH Unavailable PROBLEMS Type Condition ICD9-CM Code TIQ85-DE Code Onset Dates Condition Status SNOMED Code Problem Sleep apnea in adult G47.30 Active 32056324 Problem Moderately severe depression F32.2 Active 440284785 Problem Hypoglycemia associated with type 2 diabetes mellitus E11.649 Active 199248238 Problem PVD (peripheral vascular disease) I73.9 Active 686288837 Problem PAD (peripheral artery disease) I73.9 Active 110113421 Problem Hypoglycemia E16.2 Active 697165809 Problem Cerebrovascular accident (CVA), unspecified mechanism I63.9 Active 113351210 Problem Breast asymmetry N64.89 Active 407252075 Problem Abnormal mammogram of right breast R92.8 Active 090396811 Problem Diabetic neuropathy E11.40 Active 628563659 Problem Anxiety F41.9 Active 08100411 Problem Obstructive sleep apnea syndrome G47.33 Active 99134993 Problem Stage 2 chronic kidney disease N18.2 Active 740236150 Problem Essential hypertension I10 Active 04714606 Problem Type 2 diabetes mellitus with hyperglycemia E11.65 Active 404902783494075 Problem Cocaine abuse F14.10 Active 95520204 Problem Hyperlipidemia, unspecified E78.5 Active 30237382 ALLERGIES No Information ENCOUNTERS Encounter Location Date Diagnosis [facility] [address] [id number] [place] [address] Nov [facility] [address] [id number] [place] [address] Nov [facility] [address] [id number] [place] [address] Nov PVD (peripheral vascular disease) I73.9 ; Type 2 diabetes mellitus with hyperglycemia E11.65 and PAD (peripheral artery disease) I73.9 [facility] [place] [address] [id number] [place] [address] Nov [facility] [place] [address] [id number] [place] [address] Nov [facility] [place] [address] [id number] [place] [address] Nov [facility] [place] [address] [id number] [address] October [facility] [place] [address] [id number] [place] [address] October [facility] [place] [address] [id number] [place] [address] October Type 2 diabetes mellitus with hyperglycemia E11.65 and Surgical procedure on lower extremity within past 6 months Z98.890 [facility] [place] [address] [id number] [place] [address] October [facility] [place] [address] [id number] [place] [address] October [facility] [address] [facility] [id number] [place] [address] October, [facility] [place] [address] [id number] [place] [address] October Sleep apnea in adult G47.30 [facility] [place] [address] [id number] [place] [address] October Type 2 diabetes mellitus with hyperglycemia E11.65 [facility] [place] [address] [id number] [place] [address] Sep [facility] [place] [address] [id number] [place] [address] Sep Breast asymmetry N64.89 [facility] [place] [address] [id number] [place] [address] Sep [facility] [place] [address] [id number] [place] [address] Sep Type 2 diabetes mellitus with hyperglycemia E11.65 ; Cocaine abuse F14.10 and Open wound of right great toe, subsequent encounter S91.101D [facility] [place] [address] [id number] [place] [address] Sep [facility] [place] [address] [id number] [place] [address] Aug [facility] [place] [address] [id number] [place] [address] Aug [facility] [place] [address] [id number] [place] [address] Aug Type 2 diabetes mellitus with hyperglycemia E11.65 [facility] [place] [address] [id number] [place] [address] Aug [facility] [address] [facility] [id number] [place] [address] Aug, [facility] [place] [address] [id number] [place] [address] Jul [facility] [place] [address] [id number] [place] [address] Jul Diabetic neuropathy E11.40 ; Essential hypertension I10 and Type 2 diabetes mellitus with hyperglycemia E11.65 [facility] [place] [address] [id number] [place] [address] Jul [facility] [place] [address] [id number] [place] [address] Jul [facility] [place] [address] [id number] [place] [address] Jul [facility] [place] [address] [id number] [place] [address] Jul [facility] [place] [address] [id number] [place] [address] Jul [facility] [place] [address] [id number] [place] [address] Jul Type 2 diabetes mellitus with hyperglycemia E11.65 ; Open wound of right great toe, subsequent encounter S91.101D ; Essential hypertension I10 and Diabetic neuropathy E11.40 [facility] [address] [id number] [place] [address] Jul, [facility] [place] [address] [id number] [place] [address] Jun [facility] [place] [address] [id number] [place] [address] Jun Type 2 diabetes mellitus with hyperglycemia E11.65 [facility] [place] [address] [id number] [place] [address] Jun [facility] [place] [address] [id number] [place] [address] Jun [facility] [place] [address] [id number] [place] [address] 17 Jun Abnormal mammogram of right breast R92.8 and Breast asymmetry N64.89 [facility] [place] [address] [id number] [place] [address] 15 Jun [facility] [place] [address] [id number] [place] [address] Jun [facility] [place] [address] [id number] [place] [address] May Hypoglycemia E16.2 [facility] [place] [address] [id number] [place] [address] May Abnormal neurological exam R29.90 [facility] [place] [address] [id number] [place] [address] May [facility] [place] [address] [id number] [place] [address] May Type 2 diabetes mellitus with hyperglycemia E11.65 [facility] [place] [address] [id number] [place] [address] May Breast cancer screening Z12.31 and Hematuria, unspecified type R31.9 [facility] [place] [address] [id number] [place] [address] May [facility] [place] [address] [id number] [place] [address] May Type 2 diabetes mellitus with hyperglycemia E11.65 ; Essential hypertension I10 ; Moderately severe depression F32.2 and Confusion R41.0 [place] [address] [address] May, [facility] [place] [address] [id number] [place] [address] May Cerebrovascular accident (CVA), unspecified mechanism I63.9 ; Essential hypertension I10 ; Hyperlipidemia, unspecified E78.5 and Type 2 diabetes mellitus with hyperglycemia E11.65 [place] [address], [place] [address] May, [place] [address] [address] May, [facility] [address] [id number] [place] [address] May [facility] [place] [address] [id number] [place] [address] May Diabetic neuropathy E11.40 and Diabetes E11.9 [facility] [place] [address] [id number] [place] [address] Apr [facility] [place] [address] [id number] [place] [address] Apr Subacute maxillary sinusitis J01.00 ; Hypoglycemia associated with type 2 diabetes mellitus E11.649 and Intractable episodic headache, unspecified headache type R51 [facility] [place] [address] [id number] [place] [address] Apr Diabetic neuropathy E11.40 and Anxiety F41.9 [facility] [place] [address] [id number] [place] [address] Apr [facility] [place] [address] [id number] [place] [address] Apr Type 2 diabetes mellitus with hyperglycemia E11.65 ; Subacute maxillary sinusitis J01.00 ; Diabetic neuropathy E11.40 and Sleep apnea in adult G47.30 [place] [address] [place] [id number] [address] Apr, [facility] [place] [address] [id number] [place] [address] Apr [facility] [place] [address] [id number] [place] [address] Apr [facility] [place] [address] [id number] [place] [address] Apr Subacute maxillary sinusitis J01.00 [place] [address] [place] [address] Apr, Right foot drop M21.371 [facility] [place] [address] [id number] [place] [address] Apr [facility] [place] [address] [id number] [place] [address] Mar [facility] [place] [address] [id number] [place] [address] Mar Essential hypertension I10 ; Type 2 diabetes mellitus with hyperglycemia E11.65 ; Encounter for immunization Z23 ; Cocaine abuse F14.10 and Hyperlipidemia, unspecified E78.5 [facility] [place] [address] [id number] [place] [address] Mar [place] [address] [address] Mar, [facility] [place] [address] [id number] [place] [address] Feb [facility] [place] [address] [id number] [place] [address] Feb Type 2 diabetes mellitus with hyperglycemia E11.65 and Acute right ankle pain M25.571 [facility] [place] [address] [id number] [place] [address] Feb Weight loss R63.4 and Anxiety F41.9 [place] [address], [place] [address] Jan, [place] [address] [place] [id number] [place] [address] Jan, [facility] [address], [place] [address] Jan, [facility] [address], [place] [address] Jan, Diabetes E11.9 [facility] [place] [address] [id number] [place] [address] Jan Sprain of right ankle, unspecified ligament, initial encounter S93.401A [facility] [place] [address] [id number] [place] [address] Jan Essential hypertension I10 ; Anxiety F41.9 and Type 2 diabetes mellitus with hyperglycemia E11.65 [facility] [address] [place] [address] Jan, Diabetes E11.9 [facility] [address] [place] [address] Jan, [facility] [address], [place] [address] Jan, [facility] MAN [address] [id number] [place] [address] Jan [facility] [address], [place] [address] Jan, [facility] [address], [place] [address] Jan, [facility] [address], [place] [address] Jan, [facility] [address] [place] [address] Jan, [facility] [address], [place] [address] Jan, Unintentional weight loss R63.4 ; Stage 2 chronic kidney disease N18.2 ; Exposure to hepatitis C Z20.5 ; Diabetic neuropathy E11.40 ; Obstructive sleep apnea syndrome G47.33 ; Essential hypertension I10 and Type 2 diabetes mellitus with hyperglycemia E11.65 [facility] [address], [place] [address] Jan, [facility] [address] [place] [address] Jan, Type 2 diabetes mellitus with hyperglycemia E11.65 ; Diabetic neuropathy E11.40 and Essential hypertension I10 [facility] [address] [place] [address] Dec, Diabetes E11.9 [facility] [address] [place] [id number] [place] [address] Dec, [facility] [address] [place] [id number] [place] [address] Dec, [place] [address] [place] [id number] [place] [address] Dec, [facility] [address] [place] [address] Dec, Dental examination Z01.20 [facility] [address] [place] [address] Dec, [facility] [address] [place] [address] Dec, Diabetes E11.9 [facility] [address], [place] [address] Dec, Stage 2 chronic kidney disease N18.2 ; Exposure to hepatitis C Z20.5 ; Obstructive sleep apnea syndrome G47.33 and Type 2 diabetes mellitus with hyperglycemia E11.65 [facility] [address], [place] [address] Dec, [facility] [place] [address] [id number] [place] [address] Dec Diabetes E11.9 and Essential hypertension I10 [facility] [address] [place] [address], [place] [address] Nov, Diabetes E11.9 [facility] [address] [facility] [id number] [place] [address] Nov, Right foot pain M79.671 [facility] [place] [address] [facility] [id number] [place] [address] Nov, Right foot pain M79.671 [facility] [place] [address] [id number] [place] [address] Nov Diabetes E11.9 [facility] [place] [address] [id number] [place] [address] Nov Diabetes E11.9 [facility] [address] [facility] [id number] [place] [address] Nov, Dental examination Z01.20 [facility] [place] [address] [id number] [place] [address] Nov Diabetes E11.9 ; Cocaine abuse F14.10 and Shingles (herpes zoster) polyneuropathy B02.23 [facility] [place] [address] [id number] [place] [address] Nov [facility] [address] [facility] [id number] [place] [address] October, [facility] [place] [address] [id number] [place] [address] October [facility] [place] [address] [id number] [place] [address] October Unintentional weight loss R63.4 [facility] [place] [address] [id number] [place] [address] October Abscess L02.91 [facility] [place] [address] [id number] [place] [address] October Diabetes E11.9 ; Unintentional weight loss R63.4 ; History of hematuria Z87.448 and Cocaine abuse F14.10 [facility] [place] [address] [id number] [place] [address] October Diabetes E11.9 [facility] [place] [address] [id number] [place] [address] October Essential hypertension I10 and Abscess L02.91 [facility] [place] [address] [id number] [place] [address] Jun [facility] [place] [address] [id number] [place] [address] May Breast cancer screening Z12.39 ; Diabetes E11.9 and Anxiety F41.9 [facility] [place] [address] [facility] [id number] [place] [id number] May, Diabetes E11.9 [facility] [place] [address] [id number] [place] [address] 15 May Diabetes E11.9 and Anemia D64.9 [facility] [place] [address] [id number] [place] [address] 14 May Anxiety F41.9 [facility] [place] [address] [id number] [place] [address] 08 May [facility] [place] [address] [id number] [place] [address] May Dysuria R30.0 [facility] [place] [address] [id number] [place] [address] 06 May [facility] [place] [address] [id number] [place] [address] 05 May Dysuria R30.0 and Vaginal itching L29.8 [facility] [address] [place] 32639[address]00565100[place], [place] [address] Apr, [facility] [place] [address] [id number] [place] [address] 14 Apr Diabetes E11.9 ; Dysuria R30.0 ; Diabetic neuropathy E11.40 ; Anemia D64.9 and Vaginal discharge N89.8 [facility] [address] [facility] [id number] [address] Jun, [place] [address] [place] [id number] [place] [id number] Jun, Anemia D64.9 ; Anxiety F41.9 ; Diabetes E11.9 and Diabetic neuropathy E11.40 [address] [address] May, [facility] [address] [place] 3961265100[place], [place] [address] Apr, [place] [id number] [place] [id number] Apr, Anemia D64.9 ; Anxiety F41.9 ; Diabetes E11.9 and Diabetic neuropathy E11.40 [place] [id number] [place] [id number] Mar, Acute costochondritis M94.0 [place] [address] [place] [id number] Mar, Bilateral low back pain without sciatica M54.5 and Bereavement Z63.4 [place] [address] [place] [id number] Mar, Obstructive chronic bronchitis with acute exacerbation J44.1 ; Herpes zoster without complication B02.9 and [place] N91.2 [address] [id number] Mar, [place] [address] [id number] Mar, [place] [address] [id number] Feb, History of recent traumatic injury of head V15.52 ; Diabetes type 2, uncontrolled 250.02 and Visual disturbance 368.[address] [id number] Feb, History of recent traumatic injury of head V15.52 ; Visual disturbance 368.9 and Diabetes type 2, uncontrolled 250.02 IMMUNIZATIONS No Known Immunizations SOCIAL HISTORY Never Assessed REASON FOR VISIT Lab results PLAN OF CARE VITAL SIGNS MEDICATIONS Medication Instructions Dosage Frequency Start Date End Date Duration Status Tradjenta 5 mg Orally Once a day 1 tablet 24h Aug, 90 days Active RESULTS No Results PROCEDURES No [...] infection 2004 Hospitalization History in rehab at [place] 2016 Hospitalization History Stroke 05/2017 Hospitalization History surgeries Hospitalization History Elevated B/S 07/2017 Hospitalization History [facility] - blood clot LRE 10/2017 Hospitalization History [facility] - R ankle clot 11/2017
--- OUTSIDE RECORDS SUMMARY | 2018-05-13 10:53 | XMS REPORT ---
Author Author CHRIS BECKWITH [facility] Address [address] [place] [address] Care Team Providers Care Accountant Budget Name Role Phone CHRIS BECKWITH Unavailable PROBLEMS Type Condition ICD9-CM Code OPX62-BY Code Onset Dates Condition Status SNOMED Code Problem Sleep apnea in adult G47.30 Active 54643390 Problem Moderately severe depression F32.2 Active 263094533 Problem Hypoglycemia associated with type 2 diabetes mellitus E11.649 Active 393295111 Problem PVD (peripheral vascular disease) I73.9 Active 274601783 Problem PAD (peripheral artery disease) I73.9 Active 035933303 Problem Hypoglycemia E16.2 Active 918616713 Problem Cerebrovascular accident (CVA), unspecified mechanism I63.9 Active 555162627 Problem Breast asymmetry N64.89 Active 391109639 Problem Abnormal mammogram of right breast R92.8 Active 798080617 Problem Diabetic neuropathy E11.40 Active 914222254 Problem Anxiety F41.9 Active 95468658 Problem Obstructive sleep apnea syndrome G47.33 Active 71433420 Problem Stage 2 chronic kidney disease N18.2 Active 941495500 Problem Essential hypertension I10 Active 20208732 Problem Type 2 diabetes mellitus with hyperglycemia E11.65 Active 597185435883924 Problem Cocaine abuse F14.10 Active 14297437 Problem Hyperlipidemia, unspecified E78.5 Active 44964792 ALLERGIES No Information ENCOUNTERS Encounter Location Date Diagnosis [facility] [address] [id number] [place] [address] Nov [facility] [address] [id number] [place] [address] Nov [facility] [address] [id number] [place] [address] Nov PVD (peripheral vascular disease) I73.9 ; Type 2 diabetes mellitus with hyperglycemia E11.65 and PAD (peripheral artery disease) I73.9 [facility] [place] [address] [id number] [place] [address] Nov [facility] [place] [address] [id number] [place] [address] Nov [facility] [place] [address] [id number] [place] [address] Nov [facility] [place] [address] [id number] [place] [address] October [facility] [place] [address] [id number] [place] [address] October [facility] [place] [address] [id number] [place] [address] October Type 2 diabetes mellitus with hyperglycemia E11.65 and Surgical procedure on lower extremity within past 6 months Z98.890 [facility] [place] [address] [id number] [place] [address] October [facility] [place] [address] [id number] [place] [address] October [facility] [address] [facility] [id number] [place] [address] October, [facility] [place] [address] [id number] [place] [address] October Sleep apnea in adult G47.30 [facility] [place] [address] [id number] [place] [address] October Type 2 diabetes mellitus with hyperglycemia E11.65 [facility] [place] [address] [id number] [place] [address] Sep [facility] [place] [address] [id number] [place] [address] Sep Breast asymmetry N64.89 [facility] [place] [address] [id number] [place] [address] Sep [facility] [place] [address] [id number] [place] [address] Sep Type 2 diabetes mellitus with hyperglycemia E11.65 ; Cocaine abuse F14.10 and Open wound of right great toe, subsequent encounter S91.101D [facility] [place] [address] [id number] [place] [address] Sep [facility] [place] [address] [id number] [place] [address] Aug [facility] [place] [address] [id number] [place] [address] Aug [facility] [place] [address] [id number] [place] [address] Aug Type 2 diabetes mellitus with hyperglycemia E11.65 [facility] [place] [address] [id number] [place] [address] Aug [facility] [address] [facility] [id number] [place] [address] Aug, [facility] [place] [address] [id number] [place] [address] Jul [facility] [place] [address] [id number] [place] [address] Jul Diabetic neuropathy E11.40 ; Essential hypertension I10 and Type 2 diabetes mellitus with hyperglycemia E11.65 [facility] [place] [address] [id number] [place] [address] Jul [facility] [place] [address] [id number] [place] [address] Jul [facility] [place] [address] [id number] [place] [address] Jul [facility] [place] [address] [id number] [place] [address] Jul [facility] [place] [address] [id number] [place] [address] Jul [facility] [place] [address] [id number] [place] [address] Jul Type 2 diabetes mellitus with hyperglycemia E11.65 ; Open wound of right great toe, subsequent encounter S91.101D ; Essential hypertension I10 and Diabetic neuropathy E11.40 [facility] [address] [id number] [place] [address] Jul, [facility] [place] [address] [id number] [place] [address] Jun [facility] [place] [address] [id number] [place] [address] Jun Type 2 diabetes mellitus with hyperglycemia E11.65 [facility] [place] [address] [id number] [place] [address] Jun [facility] [place] [address] [id number] [place] [address] Jun [facility] [place] [address] [id number] [place] [address] 17 Jun Abnormal mammogram of right breast R92.8 and Breast asymmetry N64.89 [facility] [place] [address] [id number] [place] [address] 15 Jun [facility] [place] [address] [id number] [place] [address] Jun [facility] [place] [address] [id number] [place] [address] May Hypoglycemia E16.2 [facility] [place] [address] [id number] [place] [address] May Abnormal neurological exam R29.90 [facility] [place] [address] [id number] [place] [address] May [facility] [place] [address] [id number] [place] [address] May Type 2 diabetes mellitus with hyperglycemia E11.65 [facility] [place] [address] [id number] [place] [address] May Breast cancer screening Z12.31 and Hematuria, unspecified type R31.9 [facility] [place] [address] [id number] [place] [address] May [facility] [place] [address] [id number] [place] [address] May Type 2 diabetes mellitus with hyperglycemia E11.65 ; Essential hypertension I10 ; Moderately severe depression F32.2 and Confusion R41.0 [place] [address] [address] May, [facility] [place] [address] [id number] [place] [address] May Cerebrovascular accident (CVA), unspecified mechanism I63.9 ; Essential hypertension I10 ; Hyperlipidemia, unspecified E78.5 and Type 2 diabetes mellitus with hyperglycemia E11.65 [place] [address] [address] May, [place] [address] [address] May, [facility] [address] [id number] [place] [address] May [facility] [place] [address] [id number] [place] [address] May Diabetic neuropathy E11.40 and Diabetes E11.9 [facility] [place] [address] [id number] [place] [address] Apr [facility] [place] [address] [id number] [place] [address] Apr Subacute maxillary sinusitis J01.00 ; Hypoglycemia associated with type 2 diabetes mellitus E11.649 and Intractable episodic headache, unspecified headache type R51 [facility] [place] [address] [id number] [place] [address] Apr Diabetic neuropathy E11.40 and Anxiety F41.9 [facility] [place] [address] [id number] [place] [address] Apr [facility] [place] [address] [id number] [place] [address] Apr Type 2 diabetes mellitus with hyperglycemia E11.65 ; Subacute maxillary sinusitis J01.00 ; Diabetic neuropathy E11.40 and Sleep apnea in adult G47.30 [place] [address] [place] [address] [id number] [address] Apr, [facility] [place] [address] [id number] [place] [address] Apr [facility] [place] [address] [id number] [place] [address] Apr [facility] [place] [address] [id number] [place] [address] Apr Subacute maxillary sinusitis J01.00 [place] [address] [place] 2164865100[place] [address] Apr, Right foot drop M21.371 [facility] [place] [address] [id number] [place] [address] Apr [facility] [place] [address] [id number] [place] [address] Mar [facility] [place] [address] [id number] [place] [address] Mar Essential hypertension I10 ; Type 2 diabetes mellitus with hyperglycemia E11.65 ; Encounter for immunization Z23 ; Cocaine abuse F14.10 and Hyperlipidemia, unspecified E78.5 [facility] [place] [address] [id number] [place] [address] Mar [place] [address] [address] Mar, [facility] [place] [address] [id number] [place] [address] Feb [facility] [place] [address] [id number] [place] [address] Feb Type 2 diabetes mellitus with hyperglycemia E11.65 and Acute right ankle pain M25.571 [facility] [place] [address] [id number] [place] [address] Feb Weight loss R63.4 and Anxiety F41.9 [place] [address], [place] [address] Jan, [place] [address] [place] [id number] [place] [address] Jan, [facility] [address], [place] [address] Jan, [facility] [address], [place] [address] Jan, Diabetes E11.9 [facility] [place] [address] [id number] [place] [address] Jan Sprain of right ankle, unspecified ligament, initial encounter S93.401A [facility] [place] [address] [id number] [place] [address] Jan Essential hypertension I10 ; Anxiety F41.9 and Type 2 diabetes mellitus with hyperglycemia E11.65 [facility] [address] [place] [address] Jan, Diabetes E11.9 [facility] [address] [place] [address] Jan, [facility] [address], [place] [address] Jan, [facility] [address] [id number] [place] [address] Jan [facility] [address], [place] [address] Jan, [facility] [address], [place] [address] Jan, [facility] [address], [place] [address] Jan, [facility] [address] [place] [address] Jan, [facility] [address], [place] [address] Jan, Unintentional weight loss R63.4 ; Stage 2 chronic kidney disease N18.2 ; Exposure to hepatitis C Z20.5 ; Diabetic neuropathy E11.40 ; Obstructive sleep apnea syndrome G47.33 ; Essential hypertension I10 and Type 2 diabetes mellitus with hyperglycemia E11.65 [facility] [address], [place] [address] Jan, [facility] [address] [place] [address] Jan, Type 2 diabetes mellitus with hyperglycemia E11.65 ; Diabetic neuropathy E11.40 and Essential hypertension I10 [facility] [address] [place] [address] Dec, Diabetes E11.9 [facility] [address] [place] [id number] [place] [address] Dec, [facility] [address] [place] [id number] [place] [address] Dec, [place] [address] [place] [id number] [place] [address] Dec, [facility] [address] [place] [address] Dec, Dental examination Z01.20 [facility] [address] [place] [address] Dec, [facility] [address] [place] [address] Dec, Diabetes E11.9 [facility] [address], [place] [address] Dec, Stage 2 chronic kidney disease N18.2 ; Exposure to hepatitis C Z20.5 ; Obstructive sleep apnea syndrome G47.33 and Type 2 diabetes mellitus with hyperglycemia E11.65 [facility] [address], [place] [address] Dec, [facility] [place] [address] [id number] [place] [address] Dec Diabetes E11.9 and Essential hypertension I10 [facility] [address] [place] [address], [place] [address] Nov, Diabetes E11.9 [facility] [address] [facility] [id number] [place] [address] Nov, Right foot pain M79.671 [facility] [place] [address] [facility] [id number] [place] [address] Nov, Right foot pain M79.671 [facility] [place] [address] [id number] [place] [address] Nov Diabetes E11.9 [facility] [place] [address] [id number] [place] [address] Nov Diabetes E11.9 [facility] [address] [facility] [id number] [place] [address] Nov, Dental examination Z01.20 [facility] [place] [address] [id number] [place] [address] Nov Diabetes E11.9 ; Cocaine abuse F14.10 and Shingles (herpes zoster) polyneuropathy B02.23 [facility] [place] [address] [id number] [place] [address] Nov [facility] [address] [facility] [id number] [place] [address] October, [facility] [place] [address] [id number] [place] [address] October [facility] [place] [address] [id number] [place] [address] October Unintentional weight loss R63.4 [facility] [place] [address] [id number] [place] [address] October Abscess L02.91 [facility] [place] [address] [id number] [place] [address] October Diabetes E11.9 ; Unintentional weight loss R63.4 ; History of hematuria Z87.448 and Cocaine abuse F14.10 [facility] [place] [address] [id number] [place] [address] October Diabetes E11.9 [facility] [place] [address] [id number] [place] [address] October Essential hypertension I10 and Abscess L02.91 [facility] [place] [address] [id number] [place] [address] Jun [facility] [place] [address] [id number] [place] [address] May Breast cancer screening Z12.39 ; Diabetes E11.9 and Anxiety F41.9 [facility] [address] [facility] [id number] [place] [address] May, Diabetes E11.9 [facility] [place] [address] [id number] [place] [address] 15 May Diabetes E11.9 and Anemia D64.9 [facility] [place] [address] [id number] [place] [address] 14 May Anxiety F41.9 [facility] [place] [address] [id number] [place] [address] 08 May [facility] [place] [address] [id number] [place] [address] May Dysuria R30.0 [facility] [place] [address] [id number] [place] [address] 06 May [facility] [place] [address] [id number] [place] [address] 05 May Dysuria R30.0 and Vaginal itching L29.8 [facility] [address] [place] [id number] [address] Apr, [facility] [place] [address] [id number] [place] [address] 14 Apr Diabetes E11.9 ; Dysuria R30.0 ; Diabetic neuropathy E11.40 ; Anemia D64.9 and Vaginal discharge N89.8 [facility] [address] [facility] [id number] [address] Jun, [place] [address] [place] [id number] [place] [id number] Jun, Anemia D64.9 ; Anxiety F41.9 ; Diabetes E11.9 and Diabetic neuropathy E11.40 [address]005[address] [id number] May, [facility] [address] [place] 2164865100[place], [place] [address] Apr, [place] [id number] [place] [id number] Apr, Anemia D64.9 ; Anxiety F41.9 ; Diabetes E11.9 and Diabetic neuropathy E11.40 [place] [id number] [place] [id number] Mar, Acute costochondritis M94.0 [place] [id number] [place] [id number] Mar, Bilateral low back pain without sciatica M54.5 and Bereavement Z63.4 [place] [address] [place] [id number] Mar, Obstructive chronic bronchitis with acute exacerbation J44.1 ; Herpes zoster without complication B02.9 and [place] N91.[address] [address] Mar, [place] [address] [id number] Mar, [place] [address]66[address]100[place] [address] Feb, History of recent traumatic injury of head V15.52 ; Diabetes type 2, uncontrolled 250.02 and Visual disturbance 368.[address] [address] Feb, History of recent traumatic injury of [...] infection 2005 Hospitalization History in [facility]hab [facility] 2016 Hospitalization History Stroke 05/2017 Hospitalization History surgeries Hospitalization History Elevated B/S 07/2017 Hospitalization History [facility] - blood clot LRE 10/2017 Hospitalization History [facility] - R ankle clot 11/2017
--- OUTSIDE RECORDS SUMMARY | 2018-05-13 10:54 | XMS REPORT ---
Author Author NATALY ALAN [facility] Address [address] [place] [address] Care Team Providers Care Counselor/Art Therapist Name Role Phone NATALY ALAN Unavailable PROBLEMS Type Condition ICD9-CM Code BOS32-HN Code Onset Dates Condition Status SNOMED Code Problem Type 2 diabetes mellitus with hyperglycemia E11.65 Active [id number] Problem Sleep apnea in adult G47.30 Active 84868700 Problem Hyperlipidemia, unspecified E78.5 Active 39641904 Problem Abnormal mammogram of right breast R92.8 Active 410759525 Problem Breast asymmetry N64.89 Active 127172211 Problem Moderately severe depression F32.2 Active 723933616 Problem Hypoglycemia associated with type 2 diabetes mellitus E11.649 Active 561542616 Problem Hypoglycemia E16.2 Active 107970844 Problem Cerebrovascular accident (CVA), unspecified mechanism I63.9 Active 991015997 Problem Essential hypertension I10 Active 38410750 Problem Cocaine abuse F14.10 Active 47269084 Problem Diabetic neuropathy E11.40 Active 383613599 Problem Stage 2 chronic kidney disease N18.2 Active 193127975 Problem Anxiety F41.9 Active 33985298 Problem Obstructive sleep apnea syndrome G47.33 Active 48023083 ALLERGIES No Information ENCOUNTERS Encounter Location Date Diagnosis [facility] [address] [address] [id number] [place] [address] [facility] MAN Pal[place] [address] [id number] [place] [address] Aug Type 2 diabetes mellitus with hyperglycemia E11.65 [facility] [address] [id number] [place] [address] Aug [facility] [address] [facility] [id number] [place] [address] Aug, [facility] MAN [address] [id number] [place] [address] Jul [facility] [place] [address] [id number] [place] [address] Jul Diabetic neuropathy E11.40 ; Essential hypertension I10 and Type 2 diabetes mellitus with hyperglycemia E11.65 [facility] [place] [address] [id number] [place] [address] Jul [facility] [place] [address] [id number] [place] [address] Jul [facility] [place] [address] [id number] [place] [address] Jul [facility] [place] [address] [id number] [place] [address] Jul [facility] [place] [address] [id number] [place] [address] Jul [facility] [place] [address] [id number] [place] [address] Jul Type 2 diabetes mellitus with hyperglycemia E11.65 ; Open wound of right great toe, subsequent encounter S91.101D ; Essential hypertension I10 and Diabetic neuropathy E11.40 [facility] [id number] [place] [id number] Jul, [facility] [place] [address] [id number] [place] [address] Jun [facility] [place] [address] [id number] [place] [address] Jun Type 2 diabetes mellitus with hyperglycemia E11.65 [facility] [place] [address] [id number] [place] [address] Jun [facility] [place] [address] [id number] [place] [address] Jun [facility] [place] [address] [id number] [place] [address] Jun Abnormal mammogram of right breast R92.8 and Breast asymmetry N64.89 [facility] [place] [address] [id number] [place] [address] Jun [facility] [place] [address] [id number] [place] [address] Jun [facility] [place] [address] [id number] [place] [address] May Hypoglycemia E16.2 [facility] [place] [address] [id number] [place] [address] May Abnormal neurological exam R29.90 [facility] [place] [address] [id number] [place] [address] May [facility] [place] [address] [id number] [place] [address] May Type 2 diabetes mellitus with hyperglycemia E11.65 [facility] [place] [address] [id number] [place] [address] May Breast cancer screening Z12.31 and Hematuria, unspecified type R31.9 [facility] [place] [address] [id number] [place] [address] May [facility] [place] [address] [id number] [place] [address] May Type 2 diabetes mellitus with hyperglycemia E11.65 ; Essential hypertension I10 ; Moderately severe depression F32.2 and Confusion R41.0 [place] [address] [place] [id number] [address] May, [facility] [place] [address] [id number] [place] [address] May Cerebrovascular accident (CVA), unspecified mechanism I63.9 ; Essential hypertension I10 ; Hyperlipidemia, unspecified E78.5 and Type 2 diabetes mellitus with hyperglycemia E11.65 [place] [address] [address] May, [place] [address] [place] [id number] [address] May, [facility] [place] [address] [id number] [place] [address] May [facility] [place] [address] [id number] [place] [address] May Diabetic neuropathy E11.40 and Diabetes E11.9 [facility] [place] [address] [id number] [place] [address] Apr [facility] [place] [address] [id number] [place] [address] Apr Subacute maxillary sinusitis J01.00 ; Hypoglycemia associated with type 2 diabetes mellitus E11.649 and Intractable episodic headache, unspecified headache type R51 [facility] [place] [address] [id number] [place] [address] Apr Diabetic neuropathy E11.40 and Anxiety F41.9 [facility] [place] [address] [id number] [place] [address] Apr [facility] [place] [address] [id number] [place] [address] Apr Type 2 diabetes mellitus with hyperglycemia E11.65 ; Subacute maxillary sinusitis J01.00 ; Diabetic neuropathy E11.40 and Sleep apnea in adult G47.30 [facility] [address] [facility] [id number] [place] [address] Apr, [facility] [place] [address] [id number] [place] [address] Apr [facility] [place] [address] [id number] [place] [address] Apr [facility] [place] [address] [id number] [place] [address] 15 Apr Subacute maxillary sinusitis J01.00 [facility] [address] [facility] [id number] [place] [address] Apr, Right foot drop M21.371 [facility] [place] [address] [id number] [place] [address] Apr [facility] [place] [address] [id number] [place] [address] Mar [facility] [place] [address] [id number] [place] [address] Mar Essential hypertension I10 ; Type 2 diabetes mellitus with hyperglycemia E11.65 ; Encounter for immunization Z23 ; Cocaine abuse F14.10 and Hyperlipidemia, unspecified E78.[address] [facility] [place] [address] [id number] [place] [address] Mar [facility] [address]005[address] [address] Mar, [facility] [place] [address] [id number] [place] [address] [facility] [place] [address] [id number] [place] [address] Feb Type 2 diabetes mellitus with hyperglycemia E11.65 and Acute right ankle pain M25.[address] [facility] [place] [address] [id number] [place] [address] Feb Weight loss R63.4 and Anxiety F41.9 [facility] [id number] [place] [address] Jan, [facility] [id number] [place] [address] Jan, [facility] [id number] [place] [address] Jan, [facility] [address] [address] Jan, Diabetes E11.[address] [facility] [place] [address] [id number] [place] [address] Jan Sprain of right ankle, unspecified ligament, initial encounter S93.401A [facility] MAN [address] [id number] [place] [address] Jan Essential hypertension I10 ; Anxiety F41.9 and Type 2 diabetes mellitus with hyperglycemia E11.65 [facility] [address] [address] Jan, Diabetes E11.9 [place] [address] [address] Jan, [facility] [address] [address] Jan, [facility] [id number] [place] [address] Jan [facility] [address] [address] Jan, [facility] [address] [address] Jan, [facility] [address] [address] Jan, [facility] [address] [address] Jan, [facility] [address] [address] Jan, Unintentional weight loss R63.4 ; Stage 2 chronic kidney disease N18.2 ; Exposure to hepatitis C Z20.5 ; Diabetic neuropathy E11.40 ; Obstructive sleep apnea syndrome G47.33 ; Essential hypertension I10 and Type 2 diabetes mellitus with hyperglycemia E11.65 [facility] [address] [address] Jan, [facility] [address] [address] Jan, Type 2 diabetes mellitus with hyperglycemia E11.65 ; Diabetic neuropathy E11.40 and Essential hypertension I10 [facility] [address] [address] Dec, Diabetes E11.9 [facility] [address] [address] Dec, [facility] [address] [address] Dec, [facility] [address] [address] Dec, [facility] [address] [place] [address] Dec, Dental examination Z01.20 [facility] [address] [address] Dec, [facility] [id number] [place] [address] Dec, Diabetes E11.9 [facility] [id number] [place] [address] Dec, Stage 2 chronic kidney disease N18.2 ; Exposure to hepatitis C Z20.5 ; Obstructive sleep apnea syndrome G47.33 and Type 2 diabetes mellitus with hyperglycemia E11.65 [facility] [address] [address] Dec, [facility] MAN [address] [id number] [place] [address] Dec Diabetes E11.9 and Essential hypertension I10 [facility] [address] [place] [address] Nov, Diabetes E11.9 [facility] [address] [address] Nov, Right foot pain M79.671 [facility] [id number] [address] Nov, Right foot pain M79.[address] [facility] MAN [address] [id number] [place] [address] Nov Diabetes E11.[address] [facility] MAN [address] [id number] [place] [address] Nov Diabetes E11.9 [facility] [address] [id number] [address] 16 Nov, 2016 Dental examination Z01.[address] [facility] MAN [address] [id number] [place] [address] Nov Diabetes E11.9 ; Cocaine abuse F14.10 and Shingles (herpes zoster) polyneuropathy B02.23 [facility] [place] [address] [id number] [place] [address] Nov [facility] [address] [facility] [id number] [place] [address] October, [facility] [place] [address] [id number] [place] [address] October [facility] [place] [address] [id number] [place] [address] October Unintentional weight loss R63.4 [facility] [place] [address] [id number] [place] [address] October Abscess L02.91 [facility] [place] [address] [id number] [place] [address] October Diabetes E11.9 ; Unintentional weight loss R63.4 ; History of hematuria Z87.448 and Cocaine abuse F14.10 [facility] [place] [address] [id number] [place] [address] October Diabetes E11.9 [facility] [place] [address] [id number] [place] [address] October Essential hypertension I10 and Abscess L02.91 [facility] [place] [address] [id number] [place] [address] Jun [facility] [place] [address] [id number] [place] [address] May Breast cancer screening Z12.39 ; Diabetes E11.9 and Anxiety F41.9 [facility] [place] [place] [address] [id number] [place] [id number] May, Diabetes E11.9 [facility] [place] [address] [id number] [place] [address] May Diabetes E11.9 and Anemia D64.9 [facility] [place] [address] [id number] [place] [address] May Anxiety F41.9 [facility] [place] [address] [id number] [place] [address] 08 May [facility] [place] [address] [id number] [place] [address] May Dysuria R30.0 [facility] [address] [id number] [place] [address] May [facility] [address] [id number] [place] [address] May Dysuria R30.0 and Vaginal itching L29.8 [place] [id number] [place] [address] Apr, [facility] [address] [id number] [place] [address] 14 Apr Diabetes E11.9 ; Dysuria R30.0 ; Diabetic neuropathy E11.40 ; Anemia D64.9 and Vaginal discharge N89.8 [place] [id number] [place] [address] Jun, [place] [id number] [place] [id number] Jun, Anemia D64.9 ; Anxiety F41.9 ; Diabetes E11.9 and Diabetic neuropathy E11.40 [place] [id number] [place] [phone] May, [place] [id number] [place] [address] Apr, [place] [id number] [place] [id number] Apr, Anemia D64.9 ; Anxiety F41.9 ; Diabetes E11.9 and Diabetic neuropathy E11.40 [place] [id number] [place] [id number] Mar, Acute costochondritis M94.0 [place] [id number] [place] [id number] Mar, Bilateral low back pain without sciatica M54.5 and Bereavement Z63.4 [address]00565100[place] [id number] Mar, Obstructive chronic bronchitis with acute exacerbation J44.1 ; Herpes zoster without complication B02.9 and [place] N91.[address]00565100[place] [id number] Mar, [address]00565100[place] [id number] Mar, [address]00565100[place] [id number] Feb, History of recent traumatic injury of head V15.52 ; Diabetes type 2, uncontrolled 250.02 and Visual disturbance 368.[address]00565100[place] [id number] Feb, History of recent traumatic injury of head V15.52 ; Visual disturbance 368.9 and Diabetes type 2, uncontrolled 250.02 IMMUNIZATIONS No Known Immunizations SOCIAL HISTORY Never Assessed REASON FOR VISIT Xray (walk-in) MHill RT(R) PLAN OF CARE VITAL SIGNS MEDICATIONS Unknown Medications RESULTS Name Result Date Reference Range Xray : Ankle, Right 3 views (IN HOUSE) 2016-11-29 PROCEDURES Procedure Date Ordered Result Body Site X-RAY EXAM OF ANKLE November 29, 2016 INSTRUCTIONS MEDICATIONS ADMINISTERED No Known Medications MEDICAL (GENERAL) HISTORY Type Description Date Medical History Diabetes Medical History hypertension Medical History hyperlipidemia Medical History neuropathy Medical History stroke Medical History detached retina Surgical History Hysterectomy 1998 Surgical History cyst on left breast removed X 2 Surgical History tubal ligation Surgical History Back surgery Surgical History Lt eye surgey 07/2017 Hospitalization History high blood glucose and kidney infection 2004 Hospitalization History in rehab at [place] 2016 Hospitalization History Stroke 05/2017 Hospitalization History surgeries Hospitalization History Elevated B/S 07/2017
--- OUTSIDE RECORDS SUMMARY | 2018-05-13 10:54 | XMS REPORT ---
Author Author CHRIS BECKWITH [facility] Address [address] [place] [address] Care Team Providers Care Oracle Business Analyst Name Role Phone CHRIS BECKWITH Unavailable PROBLEMS Type Condition ICD9-CM Code LET67-OO Code Onset Dates Condition Status SNOMED Code Problem Sleep apnea in adult G47.30 Active 18921480 Problem Moderately severe depression F32.2 Active 714654848 Problem Hypoglycemia associated with type 2 diabetes mellitus E11.649 Active 750002745 Problem PVD (peripheral vascular disease) I73.9 Active 490803056 Problem PAD (peripheral artery disease) I73.9 Active 931957834 Problem Hypoglycemia E16.2 Active 144389731 Problem Cerebrovascular accident (CVA), unspecified mechanism I63.9 Active 768853185 Problem Breast asymmetry N64.89 Active 781854935 Problem Abnormal mammogram of right breast R92.8 Active 475777443 Problem Diabetic neuropathy E11.40 Active 669297385 Problem Anxiety F41.9 Active 81292564 Problem Obstructive sleep apnea syndrome G47.33 Active 57133646 Problem Stage 2 chronic kidney disease N18.2 Active 270420719 Problem Essential hypertension I10 Active 68451645 Problem Type 2 diabetes mellitus with hyperglycemia E11.65 Active 137169880163151 Problem Cocaine abuse F14.10 Active 60614706 Problem Hyperlipidemia, unspecified E78.5 Active 15513003 ALLERGIES No Information ENCOUNTERS Encounter Location Date Diagnosis [facility] [address] [id number] [place] [address] Nov [facility] [address] [id number] [place] [address] Nov [facility] [address] [id number] [place] [address] Nov PVD (peripheral vascular disease) I73.9 ; Type 2 diabetes mellitus with hyperglycemia E11.65 and PAD (peripheral artery disease) I73.9 [facility] [address] [id number] [place] [address] Nov [facility] [place] [address] [id number] [place] [address] Nov [facility] [place] [address] [id number] [place] [address] Nov [facility] [place] [address] [id number] [place] [address] October [facility] [place] [address] [id number] [place] [address] October [facility] [place] [address] [id number] [place] [address] October Type 2 diabetes mellitus with hyperglycemia E11.65 and Surgical procedure on lower extremity within past 6 months Z98.890 [facility] [place] [address] [id number] [place] [address] October [facility] [place] [address] [id number] [place] [address] October [facility] [address] [facility] [id number] [place] [address] October, [facility] [place] [address] [id number] [place] [address] October Sleep apnea in adult G47.30 [facility] [place] [address] [id number] [place] [address] October Type 2 diabetes mellitus with hyperglycemia E11.65 [facility] [place] [address] [id number] [place] [address] Sep [facility] [place] [address] [id number] [place] [address] Sep Breast asymmetry N64.89 [facility] [place] [address] [id number] [place] [address] Sep [facility] [place] [address] [id number] [place] [address] Sep Type 2 diabetes mellitus with hyperglycemia E11.65 ; Cocaine abuse F14.10 and Open wound of right great toe, subsequent encounter S91.101D [facility] [place] [address] [id number] [place] [address] Sep [facility] [place] [address] [id number] [place] [address] Aug [facility] [place] [address] [id number] [place] [address] Aug [facility] [place] [address] [id number] [place] [address] Aug Type 2 diabetes mellitus with hyperglycemia E11.65 [facility] [place] [address] [id number] [place] [address] Aug [facility] [address] [facility] [id number] [place] [address] Aug, [facility] [place] [address] [id number] [place] [address] Jul [facility] [place] [address] [id number] [place] [address] Jul Diabetic neuropathy E11.40 ; Essential hypertension I10 and Type 2 diabetes mellitus with hyperglycemia E11.65 [facility] [place] [address] [id number] [place] [address] Jul [facility] [place] [address] [id number] [place] [address] Jul [facility] [place] [address] [id number] [place] [address] Jul [facility] [place] [address] [id number] [place] [address] Jul [facility] [place] [address] [id number] [place] [address] Jul [facility] [place] [address] [id number] [place] [address] Jul Type 2 diabetes mellitus with hyperglycemia E11.65 ; Open wound of right great toe, subsequent encounter S91.101D ; Essential hypertension I10 and Diabetic neuropathy E11.40 [facility] [address] [id number] [place] [id number] Jul, [facility] [place] [address] [id number] [place] [address] Jun [facility] [place] [address] [id number] [place] [address] Jun Type 2 diabetes mellitus with hyperglycemia E11.65 [facility] [place] [address] [id number] [place] [address] Jun [facility] [place] [address] [id number] [place] [address] Jun [facility] [place] [address] [id number] [place] [address] 17 Jun Abnormal mammogram of right breast R92.8 and Breast asymmetry N64.89 [facility] [place] [address] [id number] [place] [address] 15 Jun [facility] [place] [address] [id number] [place] [address] Jun [facility] [place] [address] [id number] [place] [address] May Hypoglycemia E16.2 [facility] [place] [address] [id number] [place] [address] May Abnormal neurological exam R29.90 [facility] [place] [address] [id number] [place] [address] May [facility] [place] [address] [id number] [place] [address] May Type 2 diabetes mellitus with hyperglycemia E11.65 [facility] [place] [address] [id number] [place] [address] May Breast cancer screening Z12.31 and Hematuria, unspecified type R31.9 [facility] [place] [address] [id number] [place] [address] May [facility] [place] [address] [id number] [place] [address] May Type 2 diabetes mellitus with hyperglycemia E11.65 ; Essential hypertension I10 ; Moderately severe depression F32.2 and Confusion R41.0 [place] [address], [place] [address] May, [facility] [place] [address] [id number] [place] [address] May Cerebrovascular accident (CVA), unspecified mechanism I63.9 ; Essential hypertension I10 ; Hyperlipidemia, unspecified E78.5 and Type 2 diabetes mellitus with hyperglycemia E11.65 [place] [address], [place] [address] May, [place] [address], [place] [address] May, [facility] [address] [id number] [place] [address] May [facility] [place] [address] [id number] [place] [address] May Diabetic neuropathy E11.40 and Diabetes E11.9 [facility] [place] [address] [id number] [place] [address] Apr [facility] [place] [address] [id number] [place] [address] Apr Subacute maxillary sinusitis J01.00 ; Hypoglycemia associated with type 2 diabetes mellitus E11.649 and Intractable episodic headache, unspecified headache type R51 [facility] [place] [address] [id number] [place] [address] Apr Diabetic neuropathy E11.40 and Anxiety F41.9 [facility] [place] [address] [id number] [place] [address] Apr [facility] [place] [address] [id number] [place] [address] Apr Type 2 diabetes mellitus with hyperglycemia E11.65 ; Subacute maxillary sinusitis J01.00 ; Diabetic neuropathy E11.40 and Sleep apnea in adult G47.30 [place] [address] [place] [id number], [place] [address] Apr, [facility] [place] [address] [id number] [place] [address] Apr [facility] [place] [address] [id number] [place] [address] Apr [facility] [place] [address] [id number] [place] [address] Apr Subacute maxillary sinusitis J01.00 [place] [address] [id number] [address] Apr, Right foot drop M21.371 [facility] [place] [address] [id number] [place] [address] Apr [facility] [place] [address] [id number] [place] [address] Mar [facility] [place] [address] [id number] [place] [address] Mar Essential hypertension I10 ; Type 2 diabetes mellitus with hyperglycemia E11.65 ; Encounter for immunization Z23 ; Cocaine abuse F14.10 and Hyperlipidemia, unspecified E78.5 [facility] [place] [address] [id number] [place] [address] Mar [place] [address] [address] Mar, [facility] [place] [address] [id number] [place] [address] Feb [facility] [place] [address] [id number] [place] [address] Feb Type 2 diabetes mellitus with hyperglycemia E11.65 and Acute right ankle pain M25.571 [facility] [place] [address] [id number] [place] [address] Feb Weight loss R63.4 and Anxiety F41.9 [place] [address], [place] [address] Jan, [place] [address] [place] [id number] [place] [address] Jan, [facility] [address], [place] [address] Jan, [facility] [address], [place] [address] Jan, Diabetes E11.9 [facility] [place] [address] [id number] [place] [address] Jan Sprain of right ankle, unspecified ligament, initial encounter S93.401A [facility] [place] [address] [id number] [place] [address] Jan Essential hypertension I10 ; Anxiety F41.9 and Type 2 diabetes mellitus with hyperglycemia E11.65 [facility] [address] [place] [address] Jan, Diabetes E11.9 [facility] [address] [place] [address] Jan, [facility] [address], [place] [address] Jan, [facility] MAN [address] [id number] [place] [address] Jan [facility] [address], [place] [address] Jan, [facility] [address], [place] [address] Jan, [facility] [address], [place] [address] Jan, [facility] [address] [place] [address] Jan, [facility] [address], [place] [address] Jan, Unintentional weight loss R63.4 ; Stage 2 chronic kidney disease N18.2 ; Exposure to hepatitis C Z20.5 ; Diabetic neuropathy E11.40 ; Obstructive sleep apnea syndrome G47.33 ; Essential hypertension I10 and Type 2 diabetes mellitus with hyperglycemia E11.65 [facility] [address], [place] [address] Jan, [facility] [address] [place] [address] Jan, Type 2 diabetes mellitus with hyperglycemia E11.65 ; Diabetic neuropathy E11.40 and Essential hypertension I10 [facility] [address] [place] [address] Dec, Diabetes E11.9 [facility] [address] [place] [id number] [place] [address] Dec, [facility] [address] [place] [id number] [place] [address] Dec, [place] [address] [place] [id number] [place] [address] Dec, [facility] [address] [place] [address] Dec, Dental examination Z01.20 [facility] [address] [place] [address] Dec, [facility] [address] [place] [address] Dec, Diabetes E11.9 [facility] [address], [place] [address] Dec, Stage 2 chronic kidney disease N18.2 ; Exposure to hepatitis C Z20.5 ; Obstructive sleep apnea syndrome G47.33 and Type 2 diabetes mellitus with hyperglycemia E11.65 [facility] [address], [place] [address] Dec, [facility] [place] [address] [id number] [place] [address] Dec Diabetes E11.9 and Essential hypertension I10 [facility] [address] [place] [address], [place] [address] Nov, Diabetes E11.9 [facility] [address] [facility] [id number] [place] [address] Nov, Right foot pain M79.671 [facility] [address] [facility] [id number] [place] [address] Nov, Right foot pain M79.671 [facility] [place] [address] [id number] [place] [address] Nov Diabetes E11.9 [facility] [place] [address] [id number] [place] [address] Nov Diabetes E11.9 [facility] [address] [facility] [id number] [place] [address] Nov, Dental examination Z01.20 [facility] [place] [address] [id number] [place] [address] Nov Diabetes E11.9 ; Cocaine abuse F14.10 and Shingles (herpes zoster) polyneuropathy B02.23 [facility] [place] [address] [id number] [place] [address] Nov [facility] [address] [facility] [id number] [place] [address] October, [facility] [place] [address] [id number] [place] [address] October [facility] [place] [address] [id number] [place] [address] October Unintentional weight loss R63.4 [facility] [place] [address] [id number] [place] [address] October Abscess L02.91 [facility] [place] [address] [id number] [place] [address] October Diabetes E11.9 ; Unintentional weight loss R63.4 ; History of hematuria Z87.448 and Cocaine abuse F14.10 [facility] [place] [address] [id number] [place] [address] October Diabetes E11.9 [facility] [place] [address] [id number] [place] [address] October Essential hypertension I10 and Abscess L02.91 [facility] [place] [address] [id number] [place] [address] Jun [facility] [place] [address] [id number] [place] [address] May Breast cancer screening Z12.39 ; Diabetes E11.9 and Anxiety F41.9 [facility] [place] [address] [facility] [id number] [place] [address] May, Diabetes E11.9 [facility] [place] [address] [id number] [place] [address] 15 May Diabetes E11.9 and Anemia D64.9 [facility] [place] [address] [id number] [place] [address] 14 May Anxiety F41.9 [facility] [place] [address] [id number] [place] [address] 08 May [facility] [place] [address] [id number] [place] [address] May Dysuria R30.0 [facility] [place] [address] [id number] [place] [address] 06 May [facility] [place] [address] [id number] [place] [address] 05 May Dysuria R30.0 and Vaginal itching L29.8 [facility] [address] [place] [id number], [place] [address] Apr, [facility] [place] [address] [id number] [place] [address] 14 Apr Diabetes E11.9 ; Dysuria R30.0 ; Diabetic neuropathy E11.40 ; Anemia D64.9 and Vaginal discharge N89.8 [facility] [address] [facility] [id number] [address] Jun, [place] [id number] [place] [id number] [place] [id number] Jun, Anemia D64.9 ; Anxiety F41.9 ; Diabetes E11.9 and Diabetic neuropathy E11.40 [address] [id number] May, [facility] [address] [place] [id number], [place] [address] Apr, [place] [id number] [place] [id number] Apr, Anemia D64.9 ; Anxiety F41.9 ; Diabetes E11.9 and Diabetic neuropathy E11.40 [place] [id number] [place] [id number] Mar, Acute costochondritis M94.0 [place] [id number] [place] [id number] Mar, Bilateral low back pain without sciatica M54.5 and Bereavement Z63.4 [place] [id number] [place] [id number] Mar, Obstructive chronic bronchitis with acute exacerbation J44.1 ; Herpes zoster without complication B02.9 and [place] N91.2 [address] [id number] Mar, [place] [address] [id number] Mar, [place] [address]65[address] [id number] Feb, History of recent traumatic injury of head V15.52 ; Diabetes type 2, uncontrolled 250.02 and Visual disturbance 368.9 [address] [id number] Feb, History of recent traumatic injury of head V15.52 ; Visual disturbance 368.9 and Diabetes type 2, uncontrolled 250.02 IMMUNIZATIONS No Known Immunizations SOCIAL HISTORY Never Assessed REASON FOR VISIT 6 mo DM ed f/u PLAN OF CARE VITAL SIGNS MEDICATIONS Unknown [...] infection 2004 Hospitalization History in rehab at [place] 2016 Hospitalization History Stroke 05/2017 Hospitalization History surgeries Hospitalization History Elevated B/S 07/2017 Hospitalization History [facility] - blood clot LRE 10/2017 Hospitalization History [facility] - R ankle clot 11/2017
--- OUTSIDE RECORDS SUMMARY | 2018-05-13 10:54 | XMS REPORT ---
Author Author CHRIS BECKWITH [facility] Address [address] [place] [address] Care Team Providers Care Lesson Instructor Name Role Phone CHRIS BECKWITH Unavailable PROBLEMS Type Condition ICD9-CM Code UFU89-YU Code Onset Dates Condition Status SNOMED Code Problem Sleep apnea in adult G47.30 Active 68295073 Problem Moderately severe depression F32.2 Active 060915223 Problem Hypoglycemia associated with type 2 diabetes mellitus E11.649 Active 500231798 Problem PVD (peripheral vascular disease) I73.9 Active 259065197 Problem PAD (peripheral artery disease) I73.9 Active 622726981 Problem Hypoglycemia E16.2 Active 480606369 Problem Cerebrovascular accident (CVA), unspecified mechanism I63.9 Active 943600097 Problem Breast asymmetry N64.89 Active 151289362 Problem Abnormal mammogram of right breast R92.8 Active 790792207 Problem Diabetic neuropathy E11.40 Active 513241977 Problem Anxiety F41.9 Active 73264202 Problem Obstructive sleep apnea syndrome G47.33 Active 78703956 Problem Stage 2 chronic kidney disease N18.2 Active 200725762 Problem Essential hypertension I10 Active 38530781 Problem Type 2 diabetes mellitus with hyperglycemia E11.65 Active [id number] Problem Cocaine abuse F14.10 Active 61017042 Problem Hyperlipidemia, unspecified E78.5 Active 27823646 ALLERGIES No Information ENCOUNTERS Encounter Location Date Diagnosis [facility] [address] [id number] [place] [address] Nov [facility] [address] [id number] [place] [address] Nov [facility] [address] [id number] [place] [address] Nov [facility] [address] [id number] [place] [address] Nov PVD (peripheral vascular disease) I73.9 ; Type 2 diabetes mellitus with hyperglycemia E11.65 and PAD (peripheral artery disease) I73.9 [facility] [place] [address] [id number] [place] [address] Nov [facility] [place] [address] [id number] [place] [address] Nov [facility] [place] [address] [id number] [place] [address] Nov [facility] [place] [address] [id number] [place] [address] October [facility] [place] [address] [id number] [place] [address] October [facility] [place] [address] [id number] [place] [address] October Type 2 diabetes mellitus with hyperglycemia E11.65 and Surgical procedure on lower extremity within past 6 months Z98.890 [facility] [place] [address] [id number] [place] [address] October [facility] [place] [address] [id number] [place] [address] October [facility] [address] [facility] [id number] [place] [address] October, [facility] [place] [address] [id number] [place] [address] October Sleep apnea in adult G47.30 [facility] [place] [address] [id number] [place] [address] October Type 2 diabetes mellitus with hyperglycemia E11.65 [facility] [place] [address] [id number] [place] [address] Sep [facility] [place] [address] [id number] [place] [address] Sep Breast asymmetry N64.89 [facility] [place] [address] [id number] [place] [address] Sep [facility] [place] [address] [id number] [place] [address] Sep Type 2 diabetes mellitus with hyperglycemia E11.65 ; Cocaine abuse F14.10 and Open wound of right great toe, subsequent encounter S91.101D [facility] [place] [address] [id number] [place] [address] Sep [facility] [place] [address] [id number] [place] [address] Aug [facility] [place] [address] [id number] [place] [address] Aug [facility] [place] [address] [id number] [place] [address] Aug Type 2 diabetes mellitus with hyperglycemia E11.65 [facility] [place] [address] [id number] [place] [address] Aug [facility] [address] [facility] [id number] [place] [address] Aug, [facility] [place] [address] [id number] [place] [address] Jul [facility] [place] [address] [id number] [place] [address] Jul Diabetic neuropathy E11.40 ; Essential hypertension I10 and Type 2 diabetes mellitus with hyperglycemia E11.65 [facility] [place] [address] [id number] [place] [address] Jul [facility] [place] [address] [id number] [place] [address] Jul [facility] [place] [address] [id number] [place] [address] Jul [facility] [place] [address] [id number] [place] [address] Jul [facility] [place] [address] [id number] [place] [address] Jul [facility] [place] [address] [id number] [place] [address] Jul Type 2 diabetes mellitus with hyperglycemia E11.65 ; Open wound of right great toe, subsequent encounter S91.101D ; Essential hypertension I10 and Diabetic neuropathy E11.[address] [facility] [address] [id number] [place] [address] Jul, [facility] [place] [address] [id number] [place] [address] Jun [facility] [place] [address] [id number] [place] [address] Jun Type 2 diabetes mellitus with hyperglycemia E11.65 [facility] [place] [address] [id number] [place] [address] Jun [facility] [place] [address] [id number] [place] [address] Jun [facility] [place] [address] [id number] [place] [address] Jun Abnormal mammogram of right breast R92.8 and Breast asymmetry N64.89 [facility] [place] [address] [id number] [place] [address] Jun [facility] [place] [address] [id number] [place] [address] Jun [facility] [place] [address] [id number] [place] [address] May Hypoglycemia E16.2 [facility] [place] [address] [id number] [place] [address] May Abnormal neurological exam R29.90 [facility] [place] [address] [id number] [place] [address] May [facility] [place] [address] [id number] [place] [address] May Type 2 diabetes mellitus with hyperglycemia E11.65 [facility] [place] [address] [id number] [place] [address] May Breast cancer screening Z12.31 and Hematuria, unspecified type R31.9 [facility] [place] [address] [id number] [place] [address] May [facility]Infoniqa GroupCON[facility] [address] [id number] [place] [address] May Type 2 diabetes mellitus with hyperglycemia E11.65 ; Essential hypertension I10 ; Moderately severe depression F32.2 and Confusion R41.0 [facility] [address] [id number] [address] May, [facility] [place] [address] [id number] [place] [address] May Cerebrovascular accident (CVA), unspecified mechanism I63.9 ; Essential hypertension I10 ; Hyperlipidemia, unspecified E78.5 and Type 2 diabetes mellitus with hyperglycemia E11.65 [address], [place] [address] May, [place] [address] [address] May, [facility] [place] [address] [id number] [place] [address] May [facility]Infoniqa GroupCON[facility] [address] [id number] [place] [address] May Diabetic neuropathy E11.40 and Diabetes E11.9 [facility]Infoniqa GroupCON[facility] [address] [id number] [place] [address] Apr [facility]ITALMoxtraONS [address] [id number] [place] [address] Apr Subacute maxillary sinusitis J01.00 ; Hypoglycemia associated with type 2 diabetes mellitus E11.649 and Intractable episodic headache, unspecified headache type R51 [facility]Infoniqa GroupCON[facility] [address] [id number] [place] [address] Apr Diabetic neuropathy E11.40 and Anxiety F41.9 [facility]ITALMoxt[facility]ONS [address] [id number] [place] [address] Apr [facility] HOS[facility]ITALLiquidCool Solutions [place] [address] [id number] [place] [address] Apr Type 2 diabetes mellitus with hyperglycemia E11.65 ; Subacute maxillary sinusitis J01.00 ; Diabetic neuropathy E11.40 and Sleep apnea in adult G47.30 [facility] [address] [id number] [address] Apr, [facility]Gavin [place] [address] [id number] [place] [address] Apr [facility]K [place] [address] [id number] [place] [address] Apr [facility] [place] [address] [id number] [place] [address] Apr Subacute maxillary sinusitis J01.00 [place] [address] 05509B00565100[place], [place] [address] Apr, Right foot drop M21.371 [facility] [place] [address] [id number] [place] [address] Apr [facility] [place] [address] [id number] [place] [address] Mar [facility] [place] [address] [id number] [place] [address] Mar Essential hypertension I10 ; Type 2 diabetes mellitus with hyperglycemia E11.65 ; Encounter for immunization Z23 ; Cocaine abuse F14.10 and Hyperlipidemia, unspecified E78.5 [facility] [place] [address] [id number] [place] [address] Mar [place] [address] [id number] [address] Mar, [facility]ITALConfidexGavin [place] [address] [id number] [place] [address] Feb [facility] [place] [address] [id number] [place] [address] Feb Type 2 diabetes mellitus with hyperglycemia E11.65 and Acute right ankle pain M25.571 [facility] [place] [address] [id number] [place] [address] Feb Weight loss R63.4 and Anxiety F41.9 [place] [address] [id number], [place] [address] Jan, [facility] [address]00565100[place], [place] [address] Jan, [facility] [address]00565100[place], [place] [address] Jan, [facility] [address]00565100[place], [place] [address] Jan, Diabetes E11.9 [facility] [place] [address] [id number] [place] [address] Jan Sprain of right ankle, unspecified ligament, initial encounter S93.401A [facility] S[facility]THGavin [place] [address] [id number] [place] [address] Jan Essential hypertension I10 ; Anxiety F41.9 and Type 2 diabetes mellitus with hyperglycemia E11.65 [facility] [address]00565100[place], [place] [address] Jan, Diabetes E11.9 [facility] [address]00565100[place], [place] [address] Jan, [facility] [address]00565100[place], [place] [address] Jan, [facility] [place] [address] [id number] [place] [address] Jan [facility] [address]65100[place], [place] [address] Jan, [facility] [address]00565100[place], [place] [address] Jan, [facility] [address]00565100[place], [place] [address] Jan, [facility] [address]00565100[place], [place] [address] Jan, [facility] [address]00565100[place], [place] [address] 02 Aug, 2017 Unintentional weight loss R63.4 ; Stage 2 chronic kidney disease N18.2 ; Exposure to hepatitis C Z20.5 ; Diabetic neuropathy E11.40 ; Obstructive sleep apnea syndrome G47.33 ; Essential hypertension I10 and Type 2 diabetes mellitus with hyperglycemia E11.65 [facility] [address]00565100[place], [place] [address] Jan, [facility] [id number] [place] [place] [address] Jan, Type 2 diabetes mellitus with hyperglycemia E11.65 ; Diabetic neuropathy E11.40 and Essential hypertension I10 [facility] [address] [place] [address] Dec, Diabetes E11.9 [facility] [address] [place] [address] Dec, [facility] [id number] [place] [address] Dec, [facility] [id number] [place] [place] [address] Dec, [facility] [address] [place] [address] Dec, Dental examination Z01.20 [facility] [address]65100[place], [place] [address] Dec, [facility] [address] [place] [address] Dec, Diabetes E11.9 [facility] [address]65100[place], [place] [address] Dec, Stage 2 chronic kidney disease N18.2 ; Exposure to hepatitis C Z20.5 ; Obstructive sleep apnea syndrome G47.33 and Type 2 diabetes mellitus with hyperglycemia E11.65 [facility] [address]00565100[place], [place] [address] Dec, [facility] [place] [address] [facility] [place] [id number] [place] [address] Dec Diabetes E11.9 and Essential hypertension I10 [facility] [address] [facility] [id number] [place] [address] Nov, Diabetes E11.9 [facility] [address] [id number] [address] Nov, Right foot pain M79.671 [facility] [address] [id number] [address] Nov, Right foot pain M79.671 [facility] [place] [address] [id number] [place] [address] Nov Diabetes E11.9 [facility] [place] [address] [id number] [place] [address] Nov Diabetes E11.9 [facility] [address] [id number] [address] Nov, Dental examination Z01.20 [facility] [place] [address] [id number] [place] [address] Nov Diabetes E11.9 ; Cocaine abuse F14.10 and Shingles (herpes zoster) polyneuropathy B02.23 [facility] [place] [address] [id number] [place] [address] Nov [facility] [address] [facility] [id number] [place] [address] October, [facility] [place] [address] [id number] [place] [address] October [facility] [place] [address] [id number] [place] [address] October Unintentional weight loss R63.4 [facility] [place] [address] [id number] [place] [address] October Abscess L02.91 [facility] [place] [address] [id number] [place] [address] October Diabetes E11.9 ; Unintentional weight loss R63.4 ; History of hematuria Z87.448 and Cocaine abuse F14.10 [facility] [place] [address] [id number] [place] [address] October Diabetes E11.9 [facility] [place] [address] [id number] [place] [address] October Essential hypertension I10 and Abscess L02.91 [facility] [place] [address] [id number] [place] [address] Jun [facility] [place] [address] [id number] [place] [address] May Breast cancer screening Z12.39 ; Diabetes E11.9 and Anxiety F41.9 [facility] [address] [id number] [place] [address] May, Diabetes E11.9 [facility] [place] [address] [id number] [place] [address] 15 May Diabetes E11.9 and Anemia D64.9 [facility] [place] [address] [id number] [place] [address] 14 May Anxiety F41.9 [facility] [place] [address] [id number] [place] [address] 08 May [facility] [place] [address] [id number] [place] [address] May Dysuria R30.0 [facility] [place] [address] [id number] [place] [address] May [facility] [place] [address] [id number] [place] [address] 05 May Dysuria R30.0 and Vaginal itching L29.8 [facility] [address] [facility] [id number] [place] [address] Apr, [facility] [place] [address] [id number] [place] [address] 14 Apr Diabetes E11.9 ; Dysuria R30.0 ; Diabetic neuropathy E11.40 ; Anemia D64.9 and Vaginal discharge N89.8 [facility] [id number] [place] [address] Jun, [address]00565100[place] [id number] Jun, Anemia D64.9 ; Anxiety F41.9 ; Diabetes E11.9 and Diabetic neuropathy E11.40 [address]00565100[place] [address] May, [facility] [id number] [place] [address] Apr, [place] [id number] [place] [id number] Apr, Anemia D64.9 ; Anxiety F41.9 ; Diabetes E11.9 and Diabetic neuropathy E11.40 [place] [address] [place] [id number] Mar, Acute costochondritis M94.0 [place] [address] [place] [id number] Mar, Bilateral low back pain without sciatica M54.5 and Bereavement Z63.4 [place] [address] [place] [id number] Mar, Obstructive chronic bronchitis with acute exacerbation J44.1 ; Herpes zoster without complication B02.9 and [place] N91.2 [place] [address] [place] [id number] Mar, [place] [address] [place] [id number] Mar, [place] [id number] [place] [id number] Feb, History of recent traumatic injury of head V15.52 ; Diabetes type 2, uncontrolled 250.02 and Visual disturbance 368.9 [place] [address] [place] [id number] Feb, History of recent traumatic injury of head V15.52 ; Visual disturbance 368.9 and Diabetes type 2, uncontrolled 250.02 IMMUNIZATIONS No Known Immunizations SOCIAL HISTORY Never Assessed 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
--- OUTSIDE RECORDS SUMMARY | 2018-05-13 10:55 | XMS REPORT ---
Author Author CHRIS BECKWITH [facility] Address [address] [place] [address] Care Team Providers Care Operations Support Representative Name Role Phone CHRIS BECKWITH Unavailable PROBLEMS Type Condition ICD9-CM Code JTE57-TO Code Onset Dates Condition Status SNOMED Code Problem Sleep apnea in adult G47.30 Active 60780820 Problem Moderately severe depression F32.2 Active 772546961 Problem Hypoglycemia associated with type 2 diabetes mellitus E11.649 Active 875178326 Problem PVD (peripheral vascular disease) I73.9 Active 125994959 Problem PAD (peripheral artery disease) I73.9 Active 846203372 Problem Hypoglycemia E16.2 Active 587118807 Problem Cerebrovascular accident (CVA), unspecified mechanism I63.9 Active 984802658 Problem Breast asymmetry N64.89 Active 749687022 Problem Abnormal mammogram of right breast R92.8 Active 781895297 Problem Diabetic neuropathy E11.40 Active 994649924 Problem Anxiety F41.9 Active 41166724 Problem Obstructive sleep apnea syndrome G47.33 Active 04727265 Problem Stage 2 chronic kidney disease N18.2 Active 349674437 Problem Essential hypertension I10 Active 45624028 Problem Type 2 diabetes mellitus with hyperglycemia E11.65 Active 698271357038156 Problem Cocaine abuse F14.10 Active 85146722 Problem Hyperlipidemia, unspecified E78.5 Active 68947353 ALLERGIES No Information ENCOUNTERS Encounter Location Date Diagnosis [facility] [address] [id number] [place] [address] Nov [facility] [address] [id number] [place] [address] Nov [facility] [address] [id number] [place] [address] Nov PVD (peripheral vascular disease) I73.9 ; Type 2 diabetes mellitus with hyperglycemia E11.65 and PAD (peripheral artery disease) I73.9 [facility] [place] [address] [id number] [place] [address] Nov [facility] [place] [address] [id number] [place] [address] Nov [facility] [place] [address] [id number] [place] [address] Nov [facility] [place] [address] [id number] [address] October [facility] [place] [address] [id number] [place] [address] October [facility] [place] [address] [id number] [place] [address] October Type 2 diabetes mellitus with hyperglycemia E11.65 and Surgical procedure on lower extremity within past 6 months Z98.890 [facility] [place] [address] [id number] [place] [address] October [facility] [place] [address] [id number] [place] [address] October [facility] [address] [facility] [id number] [place] [address] October, [facility] [place] [address] [id number] [place] [address] October Sleep apnea in adult G47.30 [facility] [place] [address] [id number] [place] [address] October Type 2 diabetes mellitus with hyperglycemia E11.65 [facility] [place] [address] [id number] [place] [address] Sep [facility] [place] [address] [id number] [place] [address] Sep Breast asymmetry N64.89 [facility] [place] [address] [id number] [place] [address] Sep [facility] [place] [address] [id number] [place] [address] Sep Type 2 diabetes mellitus with hyperglycemia E11.65 ; Cocaine abuse F14.10 and Open wound of right great toe, subsequent encounter S91.101D [facility] [place] [address] [id number] [place] [address] Sep [facility] [place] [address] [id number] [place] [address] Aug [facility] [place] [address] [id number] [place] [address] Aug [facility] [place] [address] [id number] [place] [address] Aug Type 2 diabetes mellitus with hyperglycemia E11.65 [facility] [place] [address] [id number] [place] [address] Aug [facility] [address] [facility] [id number] [place] [address] Aug, [facility] [place] [address] [id number] [place] [address] Jul [facility] [place] [address] [id number] [place] [address] Jul Diabetic neuropathy E11.40 ; Essential hypertension I10 and Type 2 diabetes mellitus with hyperglycemia E11.65 [facility] [place] [address] [id number] [place] [address] Jul [facility] [place] [address] [id number] [place] [address] Jul [facility] [place] [address] [id number] [place] [address] Jul [facility] [place] [address] [id number] [place] [address] Jul [facility] [place] [address] [id number] [place] [address] Jul [facility] [place] [address] [id number] [place] [address] Jul Type 2 diabetes mellitus with hyperglycemia E11.65 ; Open wound of right great toe, subsequent encounter S91.101D ; Essential hypertension I10 and Diabetic neuropathy E11.40 [facility] [address] [id number] [place] [address] Jul, [facility] [place] [address] [id number] [place] [address] Jun [facility] [place] [address] [id number] [place] [address] Jun Type 2 diabetes mellitus with hyperglycemia E11.65 [facility] [place] [address] [id number] [place] [address] Jun [facility] [place] [address] [id number] [place] [address] Jun [facility] [place] [address] [id number] [place] [address] 17 Jun Abnormal mammogram of right breast R92.8 and Breast asymmetry N64.89 [facility] [place] [address] [id number] [place] [address] 15 Jun [facility] [place] [address] [id number] [place] [address] Jun [facility] [place] [address] [id number] [place] [address] May Hypoglycemia E16.2 [facility] [place] [address] [id number] [place] [address] May Abnormal neurological exam R29.90 [facility] [place] [address] [id number] [place] [address] May [facility] [place] [address] [id number] [place] [address] May Type 2 diabetes mellitus with hyperglycemia E11.65 [facility] [place] [address] [id number] [place] [address] May Breast cancer screening Z12.31 and Hematuria, unspecified type R31.9 [facility] [place] [address] [id number] [place] [address] May [facility] [place] [address] [id number] [place] [address] May Type 2 diabetes mellitus with hyperglycemia E11.65 ; Essential hypertension I10 ; Moderately severe depression F32.2 and Confusion R41.0 [place] [address], [place] [address] May, [facility] [place] [address] [id number] [place] [address] May Cerebrovascular accident (CVA), unspecified mechanism I63.9 ; Essential hypertension I10 ; Hyperlipidemia, unspecified E78.5 and Type 2 diabetes mellitus with hyperglycemia E11.65 [place] [address], [place] [address] May, [place] [address] [address] May, [facility] [address] [id number] [place] [address] May [facility] [place] [address] [id number] [place] [address] May Diabetic neuropathy E11.40 and Diabetes E11.9 [facility] [place] [address] [id number] [place] [address] Apr [facility] [place] [address] [id number] [place] [address] Apr Subacute maxillary sinusitis J01.00 ; Hypoglycemia associated with type 2 diabetes mellitus E11.649 and Intractable episodic headache, unspecified headache type R51 [facility] [place] [address] [id number] [place] [address] Apr Diabetic neuropathy E11.40 and Anxiety F41.9 [facility] [place] [address] [id number] [place] [address] Apr [facility] [place] [address] [id number] [place] [address] Apr Type 2 diabetes mellitus with hyperglycemia E11.65 ; Subacute maxillary sinusitis J01.00 ; Diabetic neuropathy E11.40 and Sleep apnea in adult G47.30 [place] [id number], [place] [address] Apr, [facility] [place] [address] [id number] [place] [address] Apr [facility] [place] [address] [id number] [place] [address] Apr [facility] [place] [address] [id number] [place] [address] Apr Subacute maxillary sinusitis J01.00 [place] [address] [address] Apr, Right foot drop M21.371 [facility] [place] [address] [id number] [place] [address] Apr [facility] [place] [address] [id number] [place] [address] Mar [facility] [place] [address] [id number] [place] [address] Mar Essential hypertension I10 ; Type 2 diabetes mellitus with hyperglycemia E11.65 ; Encounter for immunization Z23 ; Cocaine abuse F14.10 and Hyperlipidemia, unspecified E78.5 [facility] [place] [address] [id number] [place] [address] Mar [place] [address] [address] Mar, [facility] [place] [address] [id number] [place] [address] Feb [facility] [place] [address] [id number] [place] [address] Feb Type 2 diabetes mellitus with hyperglycemia E11.65 and Acute right ankle pain M25.571 [facility] [place] [address] [id number] [place] [address] Feb Weight loss R63.4 and Anxiety F41.9 [place] [address], [place] [address] Jan, [place] [address] [place] [id number] [place] [address] Jan, [facility] [address], [place] [address] Jan, [facility] [address], [place] [address] Jan, Diabetes E11.9 [facility] [place] [address] [id number] [place] [address] Jan Sprain of right ankle, unspecified ligament, initial encounter S93.401A [facility] [place] [address] [id number] [place] [address] Jan Essential hypertension I10 ; Anxiety F41.9 and Type 2 diabetes mellitus with hyperglycemia E11.65 [facility] [address] [place] [address] Jan, Diabetes E11.9 [facility] [address] [place] [address] Jan, [facility] [address], [place] [address] Jan, [facility] [address] [id number] [place] [address] Jan [facility] [address], [place] [address] Jan, [facility] [address], [place] [address] Jan, [facility] [address], [place] [address] Jan, [facility] [address] [place] [address] Jan, [facility] [address], [place] [address] Jan, Unintentional weight loss R63.4 ; Stage 2 chronic kidney disease N18.2 ; Exposure to hepatitis C Z20.5 ; Diabetic neuropathy E11.40 ; Obstructive sleep apnea syndrome G47.33 ; Essential hypertension I10 and Type 2 diabetes mellitus with hyperglycemia E11.65 [facility] [address], [place] [address] Jan, [facility] [address] [place] [address] Jan, Type 2 diabetes mellitus with hyperglycemia E11.65 ; Diabetic neuropathy E11.40 and Essential hypertension I10 [facility] [address] [place] [address] Dec, Diabetes E11.9 [facility] [address] [place] [id number] [place] [address] Dec, [facility] [address] [place] [id number] [place] [address] Dec, [place] [address] [place] [id number] [place] [address] Dec, [facility] [address] [place] [address] Dec, Dental examination Z01.20 [facility] [address] [place] [address] Dec, [facility] [address] [place] [address] Dec, Diabetes E11.9 [facility] [address], [place] [address] Dec, Stage 2 chronic kidney disease N18.2 ; Exposure to hepatitis C Z20.5 ; Obstructive sleep apnea syndrome G47.33 and Type 2 diabetes mellitus with hyperglycemia E11.65 [facility] [address], [place] [address] Dec, [facility] [place] [address] [id number] [place] [address] Dec Diabetes E11.9 and Essential hypertension I10 [facility] [address] [place] [address], [place] [address] Nov, Diabetes E11.9 [facility] [address] [facility] [id number] [place] [address] Nov, Right foot pain M79.671 [facility] [address] [facility] [id number] [place] [address] Nov, Right foot pain M79.671 [facility] [place] [address] [id number] [place] [address] Nov Diabetes E11.9 [facility] [place] [address] [id number] [place] [address] Nov Diabetes E11.9 [facility] [address] [facility] [id number] [place] [address] Nov, Dental examination Z01.20 [facility] [place] [address] [id number] [place] [address] Nov Diabetes E11.9 ; Cocaine abuse F14.10 and Shingles (herpes zoster) polyneuropathy B02.23 [facility] [place] [address] [id number] [place] [address] Nov [facility] [address] [facility] [id number] [place] [address] October, [facility] [place] [address] [id number] [place] [address] October [facility] [place] [address] [id number] [place] [address] October Unintentional weight loss R63.4 [facility] [place] [address] [id number] [place] [address] October Abscess L02.91 [facility] [place] [address] [id number] [place] [address] October Diabetes E11.9 ; Unintentional weight loss R63.4 ; History of hematuria Z87.448 and Cocaine abuse F14.10 [facility] [place] [address] [id number] [place] [address] October Diabetes E11.9 [facility] [place] [address] [id number] [place] [address] October Essential hypertension I10 and Abscess L02.91 [facility] [place] [address] [id number] [place] [address] Jun [facility] [place] [address] [id number] [place] [address] May Breast cancer screening Z12.39 ; Diabetes E11.9 and Anxiety F41.9 [facility] [place] [address] [facility] [id number] [place] [id number] May, Diabetes E11.9 [facility] [place] [address] [id number] [place] [address] 15 May Diabetes E11.9 and Anemia D64.9 [facility] [place] [address] [id number] [place] [address] 14 May Anxiety F41.9 [facility] [place] [address] [id number] [place] [address] 08 May [facility] [place] [address] [id number] [place] [address] May Dysuria R30.0 [facility] [place] [address] [id number] [place] [address] 06 May [facility] [place] [address] [id number] [place] [address] 05 May Dysuria R30.0 and Vaginal itching L29.8 [facility] [address] [id number], [place] [address] Apr, [facility] [place] [address] [id number] [place] [address] 14 Apr Diabetes E11.9 ; Dysuria R30.0 ; Diabetic neuropathy E11.40 ; Anemia D64.9 and Vaginal discharge N89.8 [facility] [address] [facility] [id number] [address] Jun, [place] [address] [place] [id number] [place] [id number] Jun, Anemia D64.9 ; Anxiety F41.9 ; Diabetes E11.9 and Diabetic neuropathy E11.40 [address] [id number] May, [facility] [address] [place] [address] 2541565[address], [place] [address] Apr, [place] [id number] [place] [id number] Apr, Anemia D64.9 ; Anxiety F41.9 ; Diabetes E11.9 and Diabetic neuropathy E11.40 [place] [id number] [place] [id number] Mar, Acute costochondritis M94.0 [place] [id number] [place] [id number] Mar, Bilateral low back pain without sciatica M54.5 and Bereavement Z63.4 [place] [id number] [place] [id number] Mar, Obstructive chronic bronchitis with acute exacerbation J44.1 ; Herpes zoster without complication B02.9 and [place] N91.2 [address] [id number] Mar, [place] [address] [id number] Mar, [place] [address] [id number] Feb, History of recent traumatic injury of head V15.52 ; Diabetes type 2, uncontrolled 250.02 and Visual disturbance 368.[address] [id number] Feb, History of recent traumatic injury of head V15.52 ; Visual disturbance 368.9 and Diabetes type 2, uncontrolled 250.02 IMMUNIZATIONS No Known Immunizations SOCIAL HISTORY Never Assessed REASON FOR VISIT PLAN OF CARE VITAL SIGNS MEDICATIONS Medication Instructions Dosage Frequency Start Date End Date Duration Status Amlodipine Besylate 10 mg Orally Once a day 1 tablet 24h May, 30 days Active Ropinirole HCl 1 MG Orally at bedtime 1 tablet 1 to 3 hours before bedtime 30 days Active RESULTS No Results PROCEDURES [...] infection 2004 Hospitalization History in rehab at [place] 2016 Hospitalization History Stroke 05/2017 Hospitalization History surgeries Hospitalization History Elevated B/S 07/2017 Hospitalization History [facility] - blood clot LRE 10/2017 Hospitalization History [facility] - R ankle clot 11/2017
--- OUTSIDE RECORDS SUMMARY | 2018-05-13 10:55 | XMS REPORT ---
Author Author CHRIS BECKWITH [facility] Address [address] [place] [address] Care Team Providers Care Aluminizer Name Role Phone CHRIS BECKWITH Unavailable PROBLEMS Type Condition ICD9-CM Code FQU96-DX Code Onset Dates Condition Status SNOMED Code Problem Sleep apnea in adult G47.30 Active 27255259 Problem Moderately severe depression F32.2 Active 136166425 Problem Hypoglycemia associated with type 2 diabetes mellitus E11.649 Active 505502122 Problem PVD (peripheral vascular disease) I73.9 Active 313375492 Problem PAD (peripheral artery disease) I73.9 Active 323943191 Problem Hypoglycemia E16.2 Active 881021137 Problem Cerebrovascular accident (CVA), unspecified mechanism I63.9 Active 456676791 Problem Breast asymmetry N64.89 Active 483302217 Problem Abnormal mammogram of right breast R92.8 Active 169340889 Problem Diabetic neuropathy E11.40 Active 327138591 Problem Anxiety F41.9 Active 99612648 Problem Obstructive sleep apnea syndrome G47.33 Active 93696582 Problem Stage 2 chronic kidney disease N18.2 Active 611088007 Problem Essential hypertension I10 Active 80109846 Problem Type 2 diabetes mellitus with hyperglycemia E11.65 Active 612936881756288 Problem Cocaine abuse F14.10 Active 17221978 Problem Hyperlipidemia, unspecified E78.5 Active 19482179 ALLERGIES No Information ENCOUNTERS Encounter Location Date Diagnosis [facility] [address] [id number] [place] [address] Nov [facility] [address] [id number] [place] [address] Nov [facility] [address] [id number] [place] [address] Nov PVD (peripheral vascular disease) I73.9 ; Type 2 diabetes mellitus with hyperglycemia E11.65 and PAD (peripheral artery disease) I73.9 [facility] [place] [address] [id number] [place] [address] Nov [facility] [place] [address] [id number] [place] [address] Nov [facility] [place] [address] [id number] [place] [address] Nov [facility] [place] [address] [id number] [place] [address] October [facility] [place] [address] [id number] [place] [address] October [facility] [place] [address] [id number] [place] [address] October Type 2 diabetes mellitus with hyperglycemia E11.65 and Surgical procedure on lower extremity within past 6 months Z98.890 [facility] [place] [address] [id number] [place] [address] October [facility] [place] [address] [id number] [place] [address] October [facility] [address] [facility] [id number] [place] [address] October, [facility] [place] [address] [id number] [place] [address] October Sleep apnea in adult G47.30 [facility] [place] [address] [id number] [place] [address] October Type 2 diabetes mellitus with hyperglycemia E11.65 [facility] [place] [address] [id number] [place] [address] Sep [facility] [place] [address] [id number] [place] [address] Sep Breast asymmetry N64.89 [facility] [place] [address] [id number] [place] [address] Sep [facility] [place] [address] [id number] [place] [address] Sep Type 2 diabetes mellitus with hyperglycemia E11.65 ; Cocaine abuse F14.10 and Open wound of right great toe, subsequent encounter S91.101D [facility] [place] [address] [id number] [place] [address] Sep [facility] [place] [address] [id number] [place] [address] Aug [facility] [place] [address] [id number] [place] [address] Aug [facility] [place] [address] [id number] [place] [address] Aug Type 2 diabetes mellitus with hyperglycemia E11.65 [facility] [place] [address] [id number] [place] [address] Aug [facility] [address] [facility] [id number] [place] [address] Aug, [facility] [place] [address] [id number] [place] [address] Jul [facility] [place] [address] [id number] [place] [address] Jul Diabetic neuropathy E11.40 ; Essential hypertension I10 and Type 2 diabetes mellitus with hyperglycemia E11.65 [facility] [place] [address] [id number] [place] [address] Jul [facility] [place] [address] [id number] [place] [address] Jul [facility] [place] [address] [id number] [place] [address] Jul [facility] [place] [address] [id number] [place] [address] Jul [facility] [place] [address] [id number] [place] [address] Jul [facility] [place] [address] [id number] [place] [address] Jul Type 2 diabetes mellitus with hyperglycemia E11.65 ; Open wound of right great toe, subsequent encounter S91.101D ; Essential hypertension I10 and Diabetic neuropathy E11.40 [facility] [address] [id number] [place] [id number] Jul, [facility] [place] [address] [id number] [place] [address] Jun [facility] [place] [address] [id number] [place] [address] Jun Type 2 diabetes mellitus with hyperglycemia E11.65 [facility] [place] [address] [id number] [place] [address] Jun [facility] [place] [address] [id number] [place] [address] Jun [facility] [place] [address] [id number] [place] [address] 17 Jun Abnormal mammogram of right breast R92.8 and Breast asymmetry N64.89 [facility] [place] [address] [id number] [place] [address] 15 Jun [facility] [place] [address] [id number] [place] [address] Jun [facility] [place] [address] [id number] [place] [address] May Hypoglycemia E16.2 [facility] [place] [address] [id number] [place] [address] May Abnormal neurological exam R29.90 [facility] [place] [address] [id number] [place] [address] May [facility] [place] [address] [id number] [place] [address] May Type 2 diabetes mellitus with hyperglycemia E11.65 [facility] [place] [address] [id number] [place] [address] May Breast cancer screening Z12.31 and Hematuria, unspecified type R31.9 [facility] [place] [address] [id number] [place] [address] May [facility] [place] [address] [id number] [place] [address] May Type 2 diabetes mellitus with hyperglycemia E11.65 ; Essential hypertension I10 ; Moderately severe depression F32.2 and Confusion R41.0 [place] [address], [place] [address] May, [facility] [place] [address] [id number] [place] [address] May Cerebrovascular accident (CVA), unspecified mechanism I63.9 ; Essential hypertension I10 ; Hyperlipidemia, unspecified E78.5 and Type 2 diabetes mellitus with hyperglycemia E11.65 [place] [address], [place] [address] May, [place] [address], [place] [address] May, [facility] [address] [id number] [place] [address] May [facility] [place] [address] [id number] [place] [address] May Diabetic neuropathy E11.40 and Diabetes E11.9 [facility] [place] [address] [id number] [place] [address] Apr [facility] [place] [address] [id number] [place] [address] Apr Subacute maxillary sinusitis J01.00 ; Hypoglycemia associated with type 2 diabetes mellitus E11.649 and Intractable episodic headache, unspecified headache type R51 [facility] [place] [address] [id number] [place] [address] Apr Diabetic neuropathy E11.40 and Anxiety F41.9 [facility] [place] [address] [id number] [place] [address] Apr [facility] [place] [address] [id number] [place] [address] Apr Type 2 diabetes mellitus with hyperglycemia E11.65 ; Subacute maxillary sinusitis J01.00 ; Diabetic neuropathy E11.40 and Sleep apnea in adult G47.30 [place] [address] [place] [id number], [place] [address] Apr, [facility] [place] [address] [id number] [place] [address] Apr [facility] [place] [address] [id number] [place] [address] Apr [facility] [place] [address] [id number] [place] [address] Apr Subacute maxillary sinusitis J01.00 [place] [address] [place] [address] [address] Apr, Right foot drop M21.371 [facility] [place] [address] [id number] [place] [address] Apr [facility] [place] [address] [id number] [place] [address] Mar [facility] [place] [address] [id number] [place] [address] Mar Essential hypertension I10 ; Type 2 diabetes mellitus with hyperglycemia E11.65 ; Encounter for immunization Z23 ; Cocaine abuse F14.10 and Hyperlipidemia, unspecified E78.5 [facility] [place] [address] [id number] [place] [address] Mar [place] [address] [address] Mar, [facility] [place] [address] [id number] [place] [address] Feb [facility] [place] [address] [id number] [place] [address] Feb Type 2 diabetes mellitus with hyperglycemia E11.65 and Acute right ankle pain M25.571 [facility] [place] [address] [id number] [place] [address] Feb Weight loss R63.4 and Anxiety F41.9 [place] [address], [place] [address] Jan, [place] [address] [place] [id number] [place] [address] Jan, [facility] [address], [place] [address] Jan, [facility] [address], [place] [address] Jan, Diabetes E11.9 [facility] [place] [address] [id number] [place] [address] Jan Sprain of right ankle, unspecified ligament, initial encounter S93.401A [facility] [place] [address] [id number] [place] [address] Jan Essential hypertension I10 ; Anxiety F41.9 and Type 2 diabetes mellitus with hyperglycemia E11.65 [facility] [address] [place] [address] Jan, Diabetes E11.9 [facility] [address] [place] [address] Jan, [facility] [address], [place] [address] Jan, [facility] MAN [address] [id number] [place] [address] Jan [facility] [address], [place] [address] Jan, [facility] [address], [place] [address] Jan, [facility] [address], [place] [address] Jan, [facility] [address] [place] [address] Jan, [facility] [address], [place] [address] Jan, Unintentional weight loss R63.4 ; Stage 2 chronic kidney disease N18.2 ; Exposure to hepatitis C Z20.5 ; Diabetic neuropathy E11.40 ; Obstructive sleep apnea syndrome G47.33 ; Essential hypertension I10 and Type 2 diabetes mellitus with hyperglycemia E11.65 [facility] [address], [place] [address] Jan, [facility] [address] [place] [address] Jan, Type 2 diabetes mellitus with hyperglycemia E11.65 ; Diabetic neuropathy E11.40 and Essential hypertension I10 [facility] [address] [place] [address] Dec, Diabetes E11.9 [facility] [address] [place] [id number] [place] [address] Dec, [facility] [address] [place] [id number] [place] [address] Dec, [place] [address] [place] [id number] [place] [address] Dec, [facility] [address] [place] [address] Dec, Dental examination Z01.20 [facility] [address] [place] [address] Dec, [facility] [address] [place] [address] Dec, Diabetes E11.9 [facility] [address], [place] [address] Dec, Stage 2 chronic kidney disease N18.2 ; Exposure to hepatitis C Z20.5 ; Obstructive sleep apnea syndrome G47.33 and Type 2 diabetes mellitus with hyperglycemia E11.65 [facility] [address], [place] [address] Dec, [facility] [place] [address] [id number] [place] [address] Dec Diabetes E11.9 and Essential hypertension I10 [facility] [address] [place] [address], [place] [address] Nov, Diabetes E11.9 [facility] [address] [facility] [id number] [place] [address] Nov, Right foot pain M79.671 [facility] [place] [address] [facility] [id number] [place] [id number] Nov, Right foot pain M79.671 [facility] [place] [address] [id number] [place] [address] Nov Diabetes E11.9 [facility] [place] [address] [id number] [place] [address] Nov Diabetes E11.9 [facility] [address] [facility] [id number] [place] [address] Nov, Dental examination Z01.20 [facility] [place] [address] [id number] [place] [address] Nov Diabetes E11.9 ; Cocaine abuse F14.10 and Shingles (herpes zoster) polyneuropathy B02.23 [facility] [place] [address] [id number] [place] [address] Nov [facility] [address] [facility] [id number] [place] [address] October, [facility] [place] [address] [id number] [place] [address] October [facility] [place] [address] [id number] [place] [address] October Unintentional weight loss R63.4 [facility] [place] [address] [id number] [place] [address] October Abscess L02.91 [facility] [place] [address] [id number] [place] [address] October Diabetes E11.9 ; Unintentional weight loss R63.4 ; History of hematuria Z87.448 and Cocaine abuse F14.10 [facility] [place] [address] [id number] [place] [address] October Diabetes E11.9 [facility] [place] [address] [id number] [place] [address] October Essential hypertension I10 and Abscess L02.91 [facility] [place] [address] [id number] [place] [address] Jun [facility] [place] [address] [id number] [place] [address] May Breast cancer screening Z12.39 ; Diabetes E11.9 and Anxiety F41.9 [facility] [place] [address] [facility] [id number] [place] [id number] May, Diabetes E11.9 [facility] [place] [address] [id number] [place] [address] 15 May Diabetes E11.9 and Anemia D64.9 [facility] [place] [address] [id number] [place] [address] 14 May Anxiety F41.9 [facility] [place] [address] [id number] [place] [address] 08 May [facility] [place] [address] [id number] [place] [address] May Dysuria R30.0 [facility] [place] [address] [id number] [place] [address] 06 May [facility] [place] [address] [id number] [place] [address] 05 May Dysuria R30.0 and Vaginal itching L29.8 [facility] [address] [place] [address], [place] [address] Apr, [facility] [place] [address] [id number] [place] [address] 14 Apr Diabetes E11.9 ; Dysuria R30.0 ; Diabetic neuropathy E11.40 ; Anemia D64.9 and Vaginal discharge N89.8 [facility] [address] [facility] [id number] [address] Jun, [place] [address] [place] [id number] [place] [id number] Jun, Anemia D64.9 ; Anxiety F41.9 ; Diabetes E11.9 and Diabetic neuropathy E11.40 [address] [id number] May, [facility] [address] [place] [address], [place] [address] Apr, [place] [id number] [place] [id number] Apr, Anemia D64.9 ; Anxiety F41.9 ; Diabetes E11.9 and Diabetic neuropathy E11.40 [place] [id number] [place] [id number] Mar, Acute costochondritis M94.0 [place] [id number] [place] [id number] Mar, Bilateral low back pain without sciatica M54.5 and Bereavement Z63.4 [place] [address] [place] [id number] Mar, Obstructive chronic bronchitis with acute exacerbation J44.1 ; Herpes zoster without complication B02.9 and Centre N91.2 [address] [id number] Mar, [place] [address] [id number] Mar, [place] [address] [id number] Feb, History of recent traumatic injury of head V15.52 ; Diabetes type 2, uncontrolled 250.02 and Visual disturbance 368.9 [address] [id number] Feb, History of recent traumatic injury of head V15.52 ; Visual disturbance 368.9 and Diabetes type 2, uncontrolled 250.02 IMMUNIZATIONS No Known Immunizations SOCIAL HISTORY Never Assessed REASON FOR VISIT referral for Dr. Albarran PLAN OF CARE VITAL SIGNS MEDICATIONS Unknown [...] infection 2004 Hospitalization History in rehab at [facility] 2016 Hospitalization History Stroke 05/2017 Hospitalization History surgeries Hospitalization History Elevated B/S 07/2017 Hospitalization History [facility] - blood clot LRE 10/2017 Hospitalization History [facility] - R ankle clot 11/2017
--- OUTSIDE RECORDS SUMMARY | 2018-05-13 10:56 | XMS REPORT ---
Author Author CHRIS BECKWITH [facility] Address [address] [place] [address] Care Team Providers Care Director Compensation Name Role Phone CHRIS BECKWITH Unavailable PROBLEMS Type Condition ICD9-CM Code GRW61-FS Code Onset Dates Condition Status SNOMED Code Problem Type 2 diabetes mellitus with hyperglycemia E11.65 Active 797035606074523 Problem Sleep apnea in adult G47.30 Active 87184521 Problem Hyperlipidemia, unspecified E78.5 Active 23725140 Problem Abnormal mammogram of right breast R92.8 Active 356913103 Problem Breast asymmetry N64.89 Active 706663267 Problem Moderately severe depression F32.2 Active 367095449 Problem Hypoglycemia associated with type 2 diabetes mellitus E11.649 Active 314304956 Problem Hypoglycemia E16.2 Active 696460526 Problem Cerebrovascular accident (CVA), unspecified mechanism I63.9 Active 563891878 Problem Essential hypertension I10 Active 63814021 Problem Cocaine abuse F14.10 Active 27715330 Problem Diabetic neuropathy E11.40 Active 564586616 Problem Stage 2 chronic kidney disease N18.2 Active 196829726 Problem Anxiety F41.9 Active 83024073 Problem Obstructive sleep apnea syndrome G47.33 Active 04147649 ALLERGIES Substance Reaction Event Type Date Status Phenergan nausea Drug Allergy Feb, Active Penicillin V Potassium nausea Drug Allergy Feb, Active Codeine Sulfate itch Drug Allergy Feb, Active ENCOUNTERS Encounter Location Date Diagnosis [facility] [address] [id number] [place] [address] Sep Breast asymmetry N64.89 [facility] [address] [id number] [place] [address] Sep [facility] [place] [address] [id number] [place] [address] Sep Type 2 diabetes mellitus with hyperglycemia E11.65 ; Cocaine abuse F14.10 and Open wound of right great toe, subsequent encounter S91.101D [facility] [place] [address] [id number] [place] [address] Sep [facility] [place] [address] [id number] [place] [address] Aug [facility] [place] [address] [id number] [place] [address] Aug [facility] [place] [address] [id number] [place] [address] Aug Type 2 diabetes mellitus with hyperglycemia E11.65 [facility] [place] [address] [id number] [place] [address] Aug [facility] [address] [facility] [id number] [place] [address] Aug, [facility] [place] [address] [id number] [place] [address] Jul [facility] [place] [address] [id number] [place] [address] Jul Diabetic neuropathy E11.40 ; Essential hypertension I10 and Type 2 diabetes mellitus with hyperglycemia E11.65 [facility] [place] [address] [id number] [place] [address] Jul [facility] [place] [address] [id number] [place] [address] Jul [facility] [place] [address] [id number] [place] [address] Jul [facility] [place] [address] [id number] [place] [address] Jul [facility] [place] [address] [id number] [place] [address] Jul [facility] [place] [address] [id number] [place] [address] Jul Type 2 diabetes mellitus with hyperglycemia E11.65 ; Open wound of right great toe, subsequent encounter S91.101D ; Essential hypertension I10 and Diabetic neuropathy E11.[address] [facility] [address] [id number] [place] [id number] 05 Jul, 2017 [facility] [place] [address] [id number] [place] [address] Jun [facility] [place] [address] [id number] [place] [address] Jun Type 2 diabetes mellitus with hyperglycemia E11.65 [facility] [place] [address] [id number] [place] [address] Jun [facility] [place] [address] [id number] [place] [address] Jun [facility] [place] [address] [id number] [place] [address] Jun Abnormal mammogram of right breast R92.8 and Breast asymmetry N64.89 [facility] [place] [address] [id number] [place] [address] Jun [facility] [place] [address] [id number] [place] [address] Jun [facility] [place] [address] [id number] [place] [address] May Hypoglycemia E16.2 [facility] [place] [address] [id number] [place] [address] May Abnormal neurological exam R29.90 [facility] [place] [address] [id number] [place] [address] May [facility] [place] [address] [id number] [place] [address] May Type 2 diabetes mellitus with hyperglycemia E11.65 [facility] [place] [address] [id number] [place] [address] 20 May Breast cancer screening Z12.31 and Hematuria, unspecified type R31.9 [facility] [place] [address] [id number] [place] [address] May [facility] [place] [address] [id number] [place] [address] 14 May Type 2 diabetes mellitus with hyperglycemia E11.65 ; Essential hypertension I10 ; Moderately severe depression F32.2 and Confusion R41.0 [place] [address], [place] [address] May, [facility] [place] [address] [id number] [place] [address] May Cerebrovascular accident (CVA), unspecified mechanism I63.9 ; Essential hypertension I10 ; Hyperlipidemia, unspecified E78.5 and Type 2 diabetes mellitus with hyperglycemia E11.65 [place] [address], [place] [address] May, [place] [address] [place] [address] May, [facility] [address] [id number] [place] [address] May [facility] [place] [address] [id number] [place] [address] May Diabetic neuropathy E11.40 and Diabetes E11.9 [facility] [place] [address] [id number] [place] [address] Apr [facility] [place] [address] [id number] [place] [address] Apr Subacute maxillary sinusitis J01.00 ; Hypoglycemia associated with type 2 diabetes mellitus E11.649 and Intractable episodic headache, unspecified headache type R51 [facility] [place] [address] [id number] [place] [address] Apr Diabetic neuropathy E11.40 and Anxiety F41.9 [facility] [place] [address] [id number] [place] [address] Apr [facility] [place] [address] [id number] [place] [address] Apr Type 2 diabetes mellitus with hyperglycemia E11.65 ; Subacute maxillary sinusitis J01.00 ; Diabetic neuropathy E11.40 and Sleep apnea in adult G47.30 [place] [address], [place] [address] Apr, [facility] [place] [address] [id number] [place] [address] Apr [facility] [place] [address] [id number] [place] [address] Apr [facility] [place] [address] [id number] [place] [address] Apr Subacute maxillary sinusitis J01.00 [place] [address] [place] [id number] [place] [address] Apr, Right foot drop M21.371 [facility] [place] [address] [id number] [place] [address] Apr [facility] [place] [address] [id number] [place] [address] Mar [facility] [place] [address] [id number] [place] [address] Mar Essential hypertension I10 ; Type 2 diabetes mellitus with hyperglycemia E11.65 ; Encounter for immunization Z23 ; Cocaine abuse F14.10 and Hyperlipidemia, unspecified E78.5 [facility] [place] [address] [id number] [place] [address] Mar [place] [address], [place] [address] Mar, [facility] [place] [address] [id number] [place] [address] Feb [facility] [place] [address] [id number] [place] [address] Feb Type 2 diabetes mellitus with hyperglycemia E11.65 and Acute right ankle pain M25.571 [facility] [place] [address] [id number] [place] [address] Feb Weight loss R63.4 and Anxiety F41.9 [place] [address], [place] [address] Jan, [place] [address] [place] [id number] [place] [address] Jan, [facility] [place] [address] [place] [address] Jan, [facility] [place] [address] [place] [id number] [place] [address] Jan, Diabetes E11.9 [facility] [place] [address] [id number] [place] [address] Jan Sprain of right ankle, unspecified ligament, initial encounter S93.401A [facility] [place] [address] [id number] [place] [address] Jan Essential hypertension I10 ; Anxiety F41.9 and Type 2 diabetes mellitus with hyperglycemia E11.65 [facility] [place] [address] [address] [id number] [place] [address] Jan, Diabetes E11.9 [facility] [place] [address] [place] [id number] [place] [address] Jan, [facility] [place] [address] [place] [address] Jan, [facility] [place] [address] [id number] [place] [address] Jan [facility] [place] [address] [place] [address] Jan, [facility] [place] [address] [place] [address] Jan, [facility] [place] [address] [place] [address] Jan, [facility] [place] [address] [place] [id number] [place] [address] Jan, [facility] [place] [address] [place] [address] Jan, Unintentional weight loss R63.4 ; Stage 2 chronic kidney disease N18.2 ; Exposure to hepatitis C Z20.5 ; Diabetic neuropathy E11.40 ; Obstructive sleep apnea syndrome G47.33 ; Essential hypertension I10 and Type 2 diabetes mellitus with hyperglycemia E11.65 [facility] [place] [address], [place] [address] Jan, [facility] [place] [address], [place] [address] Jan, Type 2 diabetes mellitus with hyperglycemia E11.65 ; Diabetic neuropathy E11.40 and Essential hypertension I10 [facility] [place] [address] [place] [address] Dec, Diabetes E11.9 [facility] [place] [address], [place] [address] Dec, [facility] [place] [address] [place] [address] Dec, [place] [address] [place] [address] Dec, [facility] [place] [address], [place] [address] Dec, Dental examination Z01.20 [facility] [place] [address], [place] [address] Dec, [facility] [place] [address], [place] [address] Dec, Diabetes E11.9 [facility] [place] [address], [place] [address] Dec, Stage 2 chronic kidney disease N18.2 ; Exposure to hepatitis C Z20.5 ; Obstructive sleep apnea syndrome G47.33 and Type 2 diabetes mellitus with hyperglycemia E11.65 [facility] [place] [address], [place] [address] Dec, [facility] [place] [address] [id number] [place] [address] Dec Diabetes E11.9 and Essential hypertension I10 [facility] [place] [address], [place] [address] Nov, Diabetes E11.9 [facility] [place] [address] [facility] [id number] [place] [address] Nov, Right foot pain M79.671 [facility] [place] [address] [id number] [place] [address] Nov, Right foot pain M79.671 [facility] [place] [address] [id number] [place] [address] Nov Diabetes E11.9 [facility] [place] [address] [id number] [place] [address] Nov Diabetes E11.9 [facility] [address] [facility] [id number] [place] [address] Nov, Dental examination Z01.20 [facility] [place] [address] [id number] [place] [address] Nov Diabetes E11.9 ; Cocaine abuse F14.10 and Shingles (herpes zoster) polyneuropathy B02.23 [facility] [place] [address] [id number] [place] [address] Nov [facility] [place] [address] [facility] [id number] [place] [address] October, [facility] [place] [address] [id number] [place] [address] October [facility] [place] [address] [id number] [place] [address] October Unintentional weight loss R63.4 [facility] [place] [address] [id number] [place] [address] October Abscess L02.91 [facility] [place] [address] [id number] [place] [address] October Diabetes E11.9 ; Unintentional weight loss R63.4 ; History of hematuria Z87.448 and Cocaine abuse F14.10 [facility] [place] [address] [id number] [place] [address] October Diabetes E11.9 [facility] [place] [address] [id number] [place] [address] October Essential hypertension I10 and Abscess L02.91 [facility] [place] [address] [id number] [place] [address] Jun [facility] [place] [address] [id number] [place] [address] May Breast cancer screening Z12.39 ; Diabetes E11.9 and Anxiety F41.9 [facility] [address] [id number] [id number] May, Diabetes E11.9 [facility] [place] [address] [id number] [place] [address] 15 May Diabetes E11.9 and Anemia D64.9 [facility] [place] [address] [id number] [place] [address] 14 May Anxiety F41.9 [facility] [place] [address] [id number] [place] [address] 08 May [facility] [place] [address] [id number] [place] [address] May Dysuria R30.0 [facility] [place] [address] [id number] [place] [address] May [facility] [place] [address] [id number] [place] [address] 05 May Dysuria R30.0 and Vaginal itching L29.8 [place] [address] [place] [id number], [place] [address] Apr, [facility] [place] [address] [id number] [place] [address] 14 Apr Diabetes E11.9 ; Dysuria R30.0 ; Diabetic neuropathy E11.40 ; Anemia D64.9 and Vaginal discharge N89.8 [facility] [place] [address] [place] [id number], [place] [address] 14 Jun, 2015 [facility] [place] [id number] [id number] Jun, Anemia D64.9 ; Anxiety F41.9 ; Diabetes E11.9 and Diabetic neuropathy E11.40 [address] [id number] May, [facility] [place] [address] [place] [address], [place] [address] Apr, [place] [id number] [place] [phone] Apr, Anemia D64.9 ; Anxiety F41.9 ; Diabetes E11.9 and Diabetic neuropathy E11.40 [place] [id number] [place] [id number] Mar, Acute costochondritis M94.0 [place] [address] [place] [id number] Mar, Bilateral low back pain without sciatica M54.5 and Bereavement Z63.4 [place] [address] [place] [id number] Mar, Obstructive chronic bronchitis with acute exacerbation J44.1 ; Herpes zoster without complication B02.9 and Isabella N91.[address] [id number] Mar, [place] [address] [id number] Mar, [place] [address] [place] [phone] Feb, History of recent traumatic injury of head V15.52 ; Diabetes type 2, uncontrolled 250.02 and Visual disturbance 368.[address] [place] [phone] Feb, History of recent traumatic injury of head V15.52 ; Visual disturbance 368.9 and Diabetes type 2, uncontrolled 250.02 IMMUNIZATIONS No Known Immunizations SOCIAL HISTORY Never Assessed REASON FOR VISIT diarrhea. CalixtoBrown, MA PLAN OF CARE Activity Details Follow Up 1 Week Reason: VITAL SIGNS Height 63.50 in 2017-02-07 Weight 116.0 lbs 2017-02-07 Temperature 98.2 degrees Fahrenheit 2017-02-07 Heart Rate 96 bpm 2017-02-07 Respiratory Rate 18 2017-02-07 BMI 20.22 kg/m2 2017-02-07 Blood pressure systolic 126 mmHg 2017-02-07 Blood pressure diastolic 80 mmHg 2017-02-07 MEDICATIONS Medication Instructions Dosage Frequency Start Date End Date Duration Status Multi Complete Active Glucocard Expression Test - subcutaneously 2 times a day as directed Nov, 30 days Active Neurontin 300 MG Orally Once a day 1 capsule 24h Jan, 30 day(s ) Active Glucocard Expression Test - as directed Nov, Active MetFORMIN HCl ER 500 mg Orally 2 times a day 2 tablet 12h 30 days Active HydrOXYzine HCl 25 MG Orally 2 times a day as needed for anxieyt 1 tablet as needed Feb, 30 day(s) Active Lisinopril 20 MG Orally Once a day 1 tablet 24h Jan, 30 day(s) Active NovoLog Flexpen 100 UNIT/ML Subcutaneous 3 times a day 3 units 8h Jan, Active Simvastatin 40 mg Orally Once a day 1 tablet in the evening 24h 30 days Active Pen Seminole 31G X 6 MM as directed 24h Apr, 30 days Active Ropinirole HCl 1 MG Orally at bedtime 1 tablet 1 to 3 hours before bedtime 30 days Active Tresiba FlexTouch 100 UNIT/ML Subcutaneous at bedtime Inject 10 units Jan, Active RESULTS No Results PROCEDURES No Known [...] infection 2004 Hospitalization History in [place]hab at [place] 2016 Hospitalization History Stroke 05/2017 Hospitalization History surgeries Hospitalization History Elevated B/S 07/2017
--- OUTSIDE RECORDS SUMMARY | 2018-05-13 10:56 | XMS REPORT ---
Author Author CHRIS BECKWITH [facility] Address [address] [place] [address] Care Team Providers Care Maintenance Aide Name Role Phone CHRIS BECKWITH Unavailable PROBLEMS Type Condition ICD9-CM Code XKI43-AZ Code Onset Dates Condition Status SNOMED Code Problem Sleep apnea in adult G47.30 Active 59245092 Problem Moderately severe depression F32.2 Active 950110171 Problem Hypoglycemia associated with type 2 diabetes mellitus E11.649 Active 036468077 Problem PVD (peripheral vascular disease) I73.9 Active 677782609 Problem PAD (peripheral artery disease) I73.9 Active 172297110 Problem Hypoglycemia E16.2 Active 006245052 Problem Cerebrovascular accident (CVA), unspecified mechanism I63.9 Active 081144282 Problem Breast asymmetry N64.89 Active 083370590 Problem Abnormal mammogram of right breast R92.8 Active 554275059 Problem Diabetic neuropathy E11.40 Active 937497788 Problem Anxiety F41.9 Active 10379141 Problem Obstructive sleep apnea syndrome G47.33 Active 19150995 Problem Stage 2 chronic kidney disease N18.2 Active 341684960 Problem Essential hypertension I10 Active 82027566 Problem Type 2 diabetes mellitus with hyperglycemia E11.65 Active 277347803327249 Problem Cocaine abuse F14.10 Active 83273485 Problem Hyperlipidemia, unspecified E78.5 Active 64950233 ALLERGIES No Information ENCOUNTERS Encounter Location Date Diagnosis [facility] [address] [id number] [place] [address] Nov [facility] [address] [id number] [place] [address] Nov [facility] [address] [id number] [place] [address] Nov PVD (peripheral vascular disease) I73.9 ; Type 2 diabetes mellitus with hyperglycemia E11.65 and PAD (peripheral artery disease) I73.9 [facility] [place] [address] [id number] [place] [address] Nov [facility] [place] [address] [id number] [place] [address] Nov [facility] [place] [address] [id number] [place] [address] Nov [facility] [place] [address] [id number] [address] October [facility] [place] [address] [id number] [place] [address] October [facility] [place] [address] [id number] [place] [address] October Type 2 diabetes mellitus with hyperglycemia E11.65 and Surgical procedure on lower extremity within past 6 months Z98.890 [facility] [place] [address] [id number] [place] [address] October [facility] [place] [address] [id number] [place] [address] October [facility] [address] [facility] [id number] [place] [address] October, [facility] [place] [address] [id number] [place] [address] October Sleep apnea in adult G47.30 [facility] [place] [address] [id number] [place] [address] October Type 2 diabetes mellitus with hyperglycemia E11.65 [facility] [place] [address] [id number] [place] [address] Sep [facility] [place] [address] [id number] [place] [address] Sep Breast asymmetry N64.89 [facility] [place] [address] [id number] [place] [address] Sep [facility] [place] [address] [id number] [place] [address] Sep Type 2 diabetes mellitus with hyperglycemia E11.65 ; Cocaine abuse F14.10 and Open wound of right great toe, subsequent encounter S91.101D [facility] [place] [address] [id number] [place] [address] Sep [facility] [place] [address] [id number] [place] [address] Aug [facility] [place] [address] [id number] [place] [address] Aug [facility] [place] [address] [id number] [place] [address] Aug Type 2 diabetes mellitus with hyperglycemia E11.65 [facility] [place] [address] [id number] [place] [address] Aug [facility] [address] [facility] [id number] [place] [address] Aug, [facility] [place] [address] [id number] [place] [address] Jul [facility] [place] [address] [id number] [place] [address] Jul Diabetic neuropathy E11.40 ; Essential hypertension I10 and Type 2 diabetes mellitus with hyperglycemia E11.65 [facility] [place] [address] [id number] [place] [address] Jul [facility] [place] [address] [id number] [place] [address] Jul [facility] [place] [address] [id number] [place] [address] Jul [facility] [place] [address] [id number] [place] [address] Jul [facility] [place] [address] [id number] [place] [address] Jul [facility] [place] [address] [id number] [place] [address] Jul Type 2 diabetes mellitus with hyperglycemia E11.65 ; Open wound of right great toe, subsequent encounter S91.101D ; Essential hypertension I10 and Diabetic neuropathy E11.40 [facility] [address] [id number] [place] [address] Jul, [facility] [place] [address] [id number] [place] [address] Jun [facility] [place] [address] [id number] [place] [address] Jun Type 2 diabetes mellitus with hyperglycemia E11.65 [facility] [place] [address] [id number] [place] [address] Jun [facility] [place] [address] [id number] [place] [address] Jun [facility] [place] [address] [id number] [place] [address] 17 Jun Abnormal mammogram of right breast R92.8 and Breast asymmetry N64.89 [facility] [place] [address] [id number] [place] [address] 15 Jun [facility] [place] [address] [id number] [place] [address] Jun [facility] [place] [address] [id number] [place] [address] May Hypoglycemia E16.2 [facility] [place] [address] [id number] [place] [address] May Abnormal neurological exam R29.90 [facility] [place] [address] [id number] [place] [address] May [facility] [place] [address] [id number] [place] [address] May Type 2 diabetes mellitus with hyperglycemia E11.65 [facility] [place] [address] [id number] [place] [address] May Breast cancer screening Z12.31 and Hematuria, unspecified type R31.9 [facility] [place] [address] [id number] [place] [address] May [facility] [place] [address] [id number] [place] [address] May Type 2 diabetes mellitus with hyperglycemia E11.65 ; Essential hypertension I10 ; Moderately severe depression F32.2 and Confusion R41.0 [place] [address] [address] May, [facility] [place] [address] [id number] [place] [address] May Cerebrovascular accident (CVA), unspecified mechanism I63.9 ; Essential hypertension I10 ; Hyperlipidemia, unspecified E78.5 and Type 2 diabetes mellitus with hyperglycemia E11.65 [place] [address], [place] [address] May, [place] [address], [place] [address] May, [facility] [address] [id number] [place] [address] May [facility] [place] [address] [id number] [place] [address] May Diabetic neuropathy E11.40 and Diabetes E11.9 [facility] [place] [address] [id number] [place] [address] Apr [facility] [place] [address] [id number] [place] [address] Apr Subacute maxillary sinusitis J01.00 ; Hypoglycemia associated with type 2 diabetes mellitus E11.649 and Intractable episodic headache, unspecified headache type R51 [facility] [place] [address] [id number] [place] [address] Apr Diabetic neuropathy E11.40 and Anxiety F41.9 [facility] [place] [address] [id number] [place] [address] Apr [facility] [place] [address] [id number] [place] [address] Apr Type 2 diabetes mellitus with hyperglycemia E11.65 ; Subacute maxillary sinusitis J01.00 ; Diabetic neuropathy E11.40 and Sleep apnea in adult G47.30 [place] [address] [place] [id number] [address] Apr, [facility] [place] [address] [id number] [place] [address] Apr [facility] [place] [address] [id number] [place] [address] Apr [facility] [place] [address] [id number] [place] [address] Apr Subacute maxillary sinusitis J01.00 [place] [address] [place] [address] Apr, Right foot drop M21.371 [facility] [place] [address] [id number] [place] [address] Apr [facility] [place] [address] [id number] [place] [address] Mar [facility] [place] [address] [id number] [place] [address] Mar Essential hypertension I10 ; Type 2 diabetes mellitus with hyperglycemia E11.65 ; Encounter for immunization Z23 ; Cocaine abuse F14.10 and Hyperlipidemia, unspecified E78.5 [facility] [place] [address] [id number] [place] [address] Mar [place] [address] [address] Mar, [facility] [place] [address] [id number] [place] [address] Feb [facility] [place] [address] [id number] [place] [address] Feb Type 2 diabetes mellitus with hyperglycemia E11.65 and Acute right ankle pain M25.571 [facility] [place] [address] [id number] [place] [address] Feb Weight loss R63.4 and Anxiety F41.9 [place] [address], [place] [address] Jan, [place] [address] [place] [id number] [place] [address] Jan, [facility] [address], [place] [address] Jan, [facility] [address], [place] [address] Jan, Diabetes E11.9 [facility] [place] [address] [id number] [place] [address] Jan Sprain of right ankle, unspecified ligament, initial encounter S93.401A [facility] [place] [address] [id number] [place] [address] Jan Essential hypertension I10 ; Anxiety F41.9 and Type 2 diabetes mellitus with hyperglycemia E11.65 [facility] [address] [place] [address] Jan, Diabetes E11.9 [facility] [address] [place] [address] Jan, [facility] [address], [place] [address] Jan, [facility] MAN [address] [id number] [place] [address] Jan [facility] [address], [place] [address] Jan, [facility] [address], [place] [address] Jan, [facility] [address], [place] [address] Jan, [facility] [address] [place] [address] Jan, [facility] [address], [place] [address] Jan, Unintentional weight loss R63.4 ; Stage 2 chronic kidney disease N18.2 ; Exposure to hepatitis C Z20.5 ; Diabetic neuropathy E11.40 ; Obstructive sleep apnea syndrome G47.33 ; Essential hypertension I10 and Type 2 diabetes mellitus with hyperglycemia E11.65 [facility] [address], [place] [address] Jan, [facility] [address] [place] [address] Jan, Type 2 diabetes mellitus with hyperglycemia E11.65 ; Diabetic neuropathy E11.40 and Essential hypertension I10 [facility] [address] [place] [address] Dec, Diabetes E11.9 [facility] [address] [place] [id number] [place] [address] Dec, [facility] [address] [place] [id number] [place] [address] Dec, [place] [address] [place] [id number] [place] [address] Dec, [facility] [address] [place] [address] Dec, Dental examination Z01.20 [facility] [address] [place] [address] Dec, [facility] [address] [place] [address] Dec, Diabetes E11.9 [facility] [address], [place] [address] Dec, Stage 2 chronic kidney disease N18.2 ; Exposure to hepatitis C Z20.5 ; Obstructive sleep apnea syndrome G47.33 and Type 2 diabetes mellitus with hyperglycemia E11.65 [facility] [address], [place] [address] Dec, [facility] [place] [address] [id number] [place] [address] Dec Diabetes E11.9 and Essential hypertension I10 [facility] [address] [place] [address], [place] [address] Nov, Diabetes E11.9 [facility] [address] [id number] [place] [address] Nov, Right foot pain M79.671 [facility] [place] [address] [facility] [id number] [place] [address] Nov, Right foot pain M79.671 [facility] [place] [address] [id number] [place] [address] Nov Diabetes E11.9 [facility] [place] [address] [id number] [place] [address] Nov Diabetes E11.9 [facility] [address] [facility] [id number] [place] [address] Nov, Dental examination Z01.20 [facility] [place] [address] [id number] [place] [address] Nov Diabetes E11.9 ; Cocaine abuse F14.10 and Shingles (herpes zoster) polyneuropathy B02.23 [facility] [place] [address] [id number] [place] [address] Nov [facility] [address] [facility] [id number] [place] [address] October, [facility] [place] [address] [id number] [place] [address] October [facility] [place] [address] [id number] [place] [address] October Unintentional weight loss R63.4 [facility] [place] [address] [id number] [place] [address] October Abscess L02.91 [facility] [place] [address] [id number] [place] [address] October Diabetes E11.9 ; Unintentional weight loss R63.4 ; History of hematuria Z87.448 and Cocaine abuse F14.10 [facility] [place] [address] [id number] [place] [address] October Diabetes E11.9 [facility] [place] [address] [id number] [place] [address] October Essential hypertension I10 and Abscess L02.91 [facility] [place] [address] [id number] [place] [address] Jun [facility] [place] [address] [id number] [place] [address] May Breast cancer screening Z12.39 ; Diabetes E11.9 and Anxiety F41.9 [facility] [place] [address] [facility] [id number] [place] [address] May, Diabetes E11.9 [facility] [place] [address] [id number] [place] [address] 15 May Diabetes E11.9 and Anemia D64.9 [facility] [place] [address] [id number] [place] [address] 14 May Anxiety F41.9 [facility] [place] [address] [id number] [place] [address] 08 May [facility] [place] [address] [id number] [place] [address] May Dysuria R30.0 [facility] [place] [address] [id number] [place] [address] 06 May [facility] [place] [address] [id number] [place] [address] 05 May Dysuria R30.0 and Vaginal itching L29.8 [facility] [address] [place] [address] [id number], [place] [address] Apr, [facility] [place] [address] [id number] [place] [address] 14 Apr Diabetes E11.9 ; Dysuria R30.0 ; Diabetic neuropathy E11.40 ; Anemia D64.9 and Vaginal discharge N89.8 [facility] [address] [id number] [address] Jun, [place] [address] [place] [id number] [place] [id number] Jun, Anemia D64.9 ; Anxiety F41.9 ; Diabetes E11.9 and Diabetic neuropathy E11.40 [address] [address] May, [facility] [address] [place] 8879065[place] [address] Apr, [place] [address] [place] [id number] Apr, Anemia D64.9 ; Anxiety F41.9 ; Diabetes E11.9 and Diabetic neuropathy E11.40 [place] [address] [place] [id number] Mar, Acute costochondritis M94.0 [place] [address] [place] [id number] Mar, Bilateral low back pain without sciatica M54.5 and Bereavement Z63.4 [place] [address] [place] [phone] Mar, Obstructive chronic bronchitis with acute exacerbation J44.1 ; Herpes zoster without complication B02.9 and [place] N91.2 [address] [id number] Mar, [place] [address] [id number] Mar, [place] [address] [address] Feb, History of recent traumatic injury of head V15.52 ; Diabetes type 2, uncontrolled 250.02 and Visual disturbance 368.[address] [id number] Feb, History of recent traumatic injury of head V15.52 ; Visual disturbance 368.9 and Diabetes type 2, uncontrolled 250.02 IMMUNIZATIONS No Known Immunizations SOCIAL HISTORY Never Assessed REASON FOR VISIT Regarding lab results PLAN OF CARE VITAL SIGNS MEDICATIONS Unknown [...] infection 2005 Hospitalization History in rehab at [place] 2016 Hospitalization History Stroke 05/2017 Hospitalization History surgeries Hospitalization History Elevated B/S 07/2017 Hospitalization History [facility] - blood clot LRE 10/2017 Hospitalization History [facility] - R ankle clot 11/2017
--- OUTSIDE RECORDS SUMMARY | 2018-05-13 10:56 | XMS REPORT ---
Author Author [facility]RIS BECKWITH [facility] [place] Address [address] [place] [address] Care Team Providers Care Health Safety Instructor Name Role Phone CHRIS BECKWITH Unavailable PROBLEMS Type Condition ICD9-CM Code FGP19-LT Code Onset Dates Condition Status SNOMED Code Problem Type 2 diabetes mellitus with hyperglycemia E11.65 Active [id number] Problem Sleep apnea in adult G47.30 Active 67807873 Problem Hyperlipidemia, unspecified E78.5 Active 54186459 Problem Abnormal mammogram of right breast R92.8 Active 464381727 Problem Breast asymmetry N64.89 Active 712446426 Problem Moderately severe depression F32.2 Active 044410262 Problem Hypoglycemia associated with type 2 diabetes mellitus E11.649 Active 431952961 Problem Hypoglycemia E16.2 Active 934816033 Problem Cerebrovascular accident (CVA), unspecified mechanism I63.9 Active 843111389 Problem Essential hypertension I10 Active 13922994 Problem Cocaine abuse F14.10 Active 03023875 Problem Diabetic neuropathy E11.40 Active 799487410 Problem Stage 2 chronic kidney disease N18.2 Active 321136683 Problem Anxiety F41.9 Active 29453735 Problem Obstructive sleep apnea syndrome G47.33 Active 70361550 ALLERGIES No Information ENCOUNTERS Encounter Location Date Diagnosis [facility] [address] [id number] [place] [address] October Sleep apnea in adult G47.30 [facility] [address] [id number] [place] [address] October Type 2 diabetes mellitus with hyperglycemia E11.65 [facility] [address] [id number] [place] [address] Sep [facility] [address] [id number] [place] [address] Sep Breast asymmetry N64.89 [facility] [place] [address] [id number] [place] [address] Sep [facility] [place] [address] [id number] [place] [address] Sep Type 2 diabetes mellitus with hyperglycemia E11.65 ; Cocaine abuse F14.10 and Open wound of right great toe, subsequent encounter S91.101D [facility] [place] [address] [id number] [place] [address] Sep [facility] [place] [address] [id number] [place] [address] Aug [facility] [place] [address] [id number] [place] [address] Aug [facility] [place] [address] [id number] [place] [address] Aug Type 2 diabetes mellitus with hyperglycemia E11.65 [facility] [place] [address] [id number] [place] [address] Aug [facility] [address] [facility] [id number] [place] [address] Aug, [facility] [place] [address] [id number] [place] [address] Jul [facility] [place] [address] [id number] [place] [address] Jul Diabetic neuropathy E11.40 ; Essential hypertension I10 and Type 2 diabetes mellitus with hyperglycemia E11.65 [facility] [place] [address] [id number] [place] [address] Jul [facility] [place] [address] [id number] [place] [address] Jul [facility] [place] [address] [id number] [place] [address] Jul [facility] [place] [address] [id number] [place] [address] Jul [facility] [place] [address] [id number] [place] [address] Jul [facility] [place] [address] [id number] [place] [address] Jul Type 2 diabetes mellitus with hyperglycemia E11.65 ; Open wound of right great toe, subsequent encounter S91.101D ; Essential hypertension I10 and Diabetic neuropathy E11.40 [facility] [id number] [place] [id number] Jul, [facility] [place] [address] [id number] [place] [address] Jun [facility] [place] [address] [id number] [place] [address] Jun Type 2 diabetes mellitus with hyperglycemia E11.65 [facility] [place] [address] [id number] [place] [address] Jun [facility] [place] [address] [id number] [place] [address] Jun [facility] [place] [address] [id number] [place] [address] Jun Abnormal mammogram of right breast R92.8 and Breast asymmetry N64.89 [facility] [place] [address] [id number] [place] [address] Jun [facility] [place] [address] [id number] [place] [address] Jun [facility] [place] [address] [id number] [place] [address] May Hypoglycemia E16.2 [facility] [place] [address] [id number] [place] [address] May Abnormal neurological exam R29.90 [facility] [place] [address] [id number] [place] [address] May [facility] [place] [address] [id number] [place] [address] May Type 2 diabetes mellitus with hyperglycemia E11.65 [facility] [place] [address] [id number] [place] [address] May Breast cancer screening Z12.31 and Hematuria, unspecified type R31.9 [facility] [place] [address] [id number] [place] [address] May [facility] [place] [address] [id number] [place] [address] May Type 2 diabetes mellitus with hyperglycemia E11.65 ; Essential hypertension I10 ; Moderately severe depression F32.2 and Confusion R41.0 [place] [address] [address] May, [facility] [place] [address] [id number] [place] [address] May Cerebrovascular accident (CVA), unspecified mechanism I63.9 ; Essential hypertension I10 ; Hyperlipidemia, unspecified E78.5 and Type 2 diabetes mellitus with hyperglycemia E11.65 [place] [address], [place] [address] May, [place] [address], [place] [address] May, [facility] [place] [address] [id number] [place] [address] May [facility] [place] [address] [id number] [place] [address] May Diabetic neuropathy E11.40 and Diabetes E11.9 [facility] [place] [address] [id number] [place] [address] Apr [facility] [place] [address] [id number] [place] [address] Apr Subacute maxillary sinusitis J01.00 ; Hypoglycemia associated with type 2 diabetes mellitus E11.649 and Intractable episodic headache, unspecified headache type R51 [facility] [place] [address] [id number] [place] [address] Apr Diabetic neuropathy E11.40 and Anxiety F41.9 [facility] [place] [address] [id number] [place] [address] Apr [facility] [place] [address] [id number] [place] [address] Apr Type 2 diabetes mellitus with hyperglycemia E11.65 ; Subacute maxillary sinusitis J01.00 ; Diabetic neuropathy E11.40 and Sleep apnea in adult G47.30 [place] [address] [facility] [id number] [place] [address] Apr, [facility] [place] [address] [id number] [place] [address] Apr [facility] [place] [address] [id number] [place] [address] Apr [facility] [place] [address] [id number] [place] [address] Apr Subacute maxillary sinusitis J01.00 [place] [address] [facility] [id number] [place] [address] Apr, Right foot drop M21.371 [facility] [place] [address] [id number] [place] [address] Apr [facility] [place] [address] [id number] [place] [address] Mar [facility] [place] [address] [id number] [place] [address] Mar Essential hypertension I10 ; Type 2 diabetes mellitus with hyperglycemia E11.65 ; Encounter for immunization Z23 ; Cocaine abuse F14.10 and Hyperlipidemia, unspecified E78.5 [facility] [place] [address] [id number] [place] [address] Mar [place] [address] [facility] [id number] [place] [address] Mar, [facility] [place] [address] [id number] [place] [address] Feb [facility] [place] [address] [id number] [place] [address] Feb Type 2 diabetes mellitus with hyperglycemia E11.65 and Acute right ankle pain M25.571 [facility] [place] [address] [id number] [place] [address] Feb Weight loss R63.4 and Anxiety F41.9 [facility] [place] [address], [place] [address] Jan, [facility] [place] [address] [place] [address] Jan, [facility] [place] [address], [place] [address] Jan, [facility] [place] [address] [place] [address] Jan, Diabetes E11.9 [facility] [address] [id number] [place] [address] Jan Sprain of right ankle, unspecified ligament, initial encounter S93.401A [facility] [address] [id number] [place] [address] Jan Essential hypertension I10 ; Anxiety F41.9 and Type 2 diabetes mellitus with hyperglycemia E11.65 [facility] [place] [address], [place] [address] Jan, Diabetes E11.9 [facility] [place] [address] [place] [address] Jan, [facility] [place] [address], [place] [address] Jan, [facility] [address] [id number] [place] [address] Jan [facility] [place] [address], [place] [address] Jan, [facility] [place] [address], [place] [address] Jan, [facility] [place] [address], [place] [address] Jan, [facility] [place] [address], [place] [address] Jan, [facility] [place] [address], [place] [address] Jan, Unintentional weight loss R63.4 ; Stage 2 chronic kidney disease N18.2 ; Exposure to hepatitis C Z20.5 ; Diabetic neuropathy E11.40 ; Obstructive sleep apnea syndrome G47.33 ; Essential hypertension I10 and Type 2 diabetes mellitus with hyperglycemia E11.65 [facility] [place] [address] [place] [id number] [place] [address] Jan, [facility] [place] [address] [place] [address] [id number] [place] [address] Jan, Type 2 diabetes mellitus with hyperglycemia E11.65 ; Diabetic neuropathy E11.40 and Essential hypertension I10 [place] [address] [place] [id number] [place] [address] Dec, Diabetes E11.9 [facility] [place] [address] [place] [address] [id number] [place] [address] Dec, [facility] [place] [address] [place] [address] [id number] [place] [address] Dec, [facility] [place] [address] [place] [address] [id number] [place] [address] Dec, [facility] [place] [address] [place] [address] [id number] [place] [address] Dec, Dental examination Z01.20 [facility] [place] [address] [place] [address]37[place] [address] Dec, [facility] [place] [address] [place] [id number] [place] [address] Dec, Diabetes E11.9 [facility] [place] [address] [address] [id number] [place] [address] Dec, Stage 2 chronic kidney disease N18.2 ; Exposure to hepatitis C Z20.5 ; Obstructive sleep apnea syndrome G47.33 and Type 2 diabetes mellitus with hyperglycemia E11.65 [facility] [place] [address] [place] [address] [id number] [place] [address] Dec, [facility] [place] [address] [id number] [place] [address] Dec Diabetes E11.9 and Essential hypertension I10 [place] [address] [place] [id number] [address] Nov, Diabetes E11.9 [place] [address] [place] [id number] [address] Nov, Right foot pain M79.671 [facility] [address] [place] [address] [address] Nov, Right foot pain M79.671 [facility] [place] [address] [id number] [place] [address] Nov Diabetes E11.9 [facility] [place] [address] [id number] [place] [address] Nov Diabetes E11.9 [facility] [address] [place] [address] [id number] [address] Nov, Dental examination Z01.20 [facility] [place] [address] [id number] [place] [address] Nov Diabetes E11.9 ; Cocaine abuse F14.10 and Shingles (herpes zoster) polyneuropathy B02.23 [facility] [place] [address] [id number] [place] [address] Nov [place] [address] [facility] [id number] [place] [address] October, [facility] [place] [address] [id number] [place] [address] October [facility] [place] [address] [id number] [place] [address] October Unintentional weight loss R63.4 [facility] [place] [address] [id number] [place] [address] October Abscess L02.91 [facility] [place] [address] [id number] [place] [address] October Diabetes E11.9 ; Unintentional weight loss R63.4 ; History of hematuria Z87.448 and Cocaine abuse F14.10 [facility] [place] [address] [id number] [place] [address] October Diabetes E11.9 [facility] [place] [address] [id number] [place] [address] October Essential hypertension I10 and Abscess L02.91 [facility] [place] [address] [id number] [place] [address] Jun [facility] [place] [address] [id number] [place] [address] May Breast cancer screening Z12.39 ; Diabetes E11.9 and Anxiety F41.9 [facility] [place] [address] [facility] [id number] [place] [id number] 16 May, 2016 Diabetes E11.9 [facility] [place] [address] [id number] [place] [address] 15 May Diabetes E11.9 and Anemia D64.9 [facility] [place] [address] [id number] [place] [address] 14 May Anxiety F41.9 [facility] [place] [address] [id number] [place] [address] 08 May [facility] [place] [address] [id number] [place] [address] 06 May Dysuria R30.0 [facility] [place] [address] [id number] [place] [address] May [facility] [place] [address] [id number] [place] [address] 05 May Dysuria R30.0 and Vaginal itching L29.8 [facility] [address] [facility] [id number] [place] [address] 18 Apr, 2016 [facility] [place] [address] [id number] [place] [address] 14 Apr Diabetes E11.9 ; Dysuria R30.0 ; Diabetic neuropathy E11.40 ; Anemia D64.9 and Vaginal discharge N89.8 [facility] [place] [address] [place] [id number] [place] [id number] Jun, [place] [id number] [place] [id number] Jun, Anemia D64.9 ; Anxiety F41.9 ; Diabetes E11.9 and Diabetic neuropathy E11.[address] [id number] May, [facility] [place] [address] [place] [id number] [place] [address] Apr, [address] [id number] Apr, Anemia D64.9 ; Anxiety F41.9 ; Diabetes E11.9 and Diabetic neuropathy E11.[address] [id number] Mar, Acute costochondritis M94.0 [place] [id number] [place] [id number] Mar, Bilateral low back pain without sciatica M54.5 and Bereavement Z63.4 [place] [id number] [place] [phone] Mar, Obstructive chronic bronchitis with acute exacerbation J44.1 ; Herpes zoster without complication B02.9 and [place] N91.2 [place] [id number] [place] [id number] Mar, [address] [id number] Mar, [place] [id number] [place] [id number] 24 Feb, 2015 History of recent traumatic injury of head V15.52 ; Diabetes type 2, uncontrolled 250.02 and Visual disturbance 368.9 [place] [address] [facility] [id number] [place] [id number] 17 Feb, 2015 History of recent traumatic injury of head V15.52 ; Visual disturbance 368.9 and Diabetes type 2, uncontrolled 250.02 IMMUNIZATIONS No Known Immunizations SOCIAL HISTORY Never Assessed REASON FOR VISIT Medication refill PLAN OF CARE VITAL SIGNS MEDICATIONS Unknown [...] infection 2004 Hospitalization History in rehab at [facility] 2016 Hospitalization History Stroke 05/2017 Hospitalization History surgeries Hospitalization History Elevated B/S 07/2017
--- OUTSIDE RECORDS SUMMARY | 2018-05-13 10:57 | XMS REPORT ---
Author Author BARRETT SCHRADER [facility] Address [address] [place] [address] Care Team Providers Care Flexographic Press Helper Name Role Phone BARRETT SCHRADER Unavailable PROBLEMS Type Condition ICD9-CM Code GNH70-WX Code Onset Dates Condition Status SNOMED Code Problem Type 2 diabetes mellitus with hyperglycemia E11.65 Active 042635015040926 Problem Sleep apnea in adult G47.30 Active 95918927 Problem Hyperlipidemia, unspecified E78.5 Active 10184689 Problem Abnormal mammogram of right breast R92.8 Active 352024671 Problem Breast asymmetry N64.89 Active 840018392 Problem Moderately severe depression F32.2 Active 299339733 Problem Hypoglycemia associated with type 2 diabetes mellitus E11.649 Active 656282054 Problem Hypoglycemia E16.2 Active 832932865 Problem Cerebrovascular accident (CVA), unspecified mechanism I63.9 Active 604500952 Problem Essential hypertension I10 Active 52600448 Problem Cocaine abuse F14.10 Active 08752019 Problem Diabetic neuropathy E11.40 Active 858086981 Problem Stage 2 chronic kidney disease N18.2 Active 902145348 Problem Anxiety F41.9 Active 98980839 Problem Obstructive sleep apnea syndrome G47.33 Active 31949392 ALLERGIES No Information ENCOUNTERS Encounter Location Date Diagnosis [facility] [address] [id number] [place] [address] October Sleep apnea in adult G47.30 [facility] [place] [address] [id number] [place] [address] October Type 2 diabetes mellitus with hyperglycemia E11.65 [facility] [address] [id number] [place] [address] Sep [facility] [address] [id number] [place] [address] Sep Breast asymmetry N64.89 [facility] [place] [address] [id number] [place] [address] Sep [facility] [place] [address] [id number] [place] [address] Sep Type 2 diabetes mellitus with hyperglycemia E11.65 ; Cocaine abuse F14.10 and Open wound of right great toe, subsequent encounter S91.101D [facility] [place] [address] [id number] [place] [address] Sep [facility] [place] [address] [id number] [place] [address] Aug [facility] [place] [address] [id number] [place] [address] Aug [facility] [place] [address] [id number] [place] [address] Aug Type 2 diabetes mellitus with hyperglycemia E11.65 [facility] [place] [address] [id number] [place] [address] Aug [facility] [address] [facility] [id number] [place] [address] Aug, [facility] [place] [address] [id number] [place] [address] Jul [facility] [place] [address] [id number] [place] [address] Jul Diabetic neuropathy E11.40 ; Essential hypertension I10 and Type 2 diabetes mellitus with hyperglycemia E11.65 [facility] [place] [address] [id number] [place] [address] Jul [facility] [place] [address] [id number] [place] [address] Jul [facility] [place] [address] [id number] [place] [address] Jul [facility] [place] [address] [id number] [place] [address] Jul [facility] [place] [address] [id number] [place] [address] Jul [facility] [place] [address] [id number] [place] [address] Jul Type 2 diabetes mellitus with hyperglycemia E11.65 ; Open wound of right great toe, subsequent encounter S91.101D ; Essential hypertension I10 and Diabetic neuropathy E11.40 [facility] [id number] [place] [id number] Jul, [facility] [place] [address] [id number] [place] [address] Jun [facility] [place] [address] [id number] [place] [address] Jun Type 2 diabetes mellitus with hyperglycemia E11.65 [facility] [place] [address] [id number] [place] [address] Jun [facility] [place] [address] [id number] [place] [address] Jun [facility] [place] [address] [id number] [place] [address] Jun Abnormal mammogram of right breast R92.8 and Breast asymmetry N64.89 [facility] [place] [address] [id number] [place] [address] Jun [facility] [place] [address] [id number] [place] [address] Jun [facility] [place] [address] [id number] [place] [address] May Hypoglycemia E16.2 [facility] [place] [address] [id number] [place] [address] May Abnormal neurological exam R29.90 [facility] [place] [address] [id number] [place] [address] May [facility] [place] [address] [id number] [place] [address] May Type 2 diabetes mellitus with hyperglycemia E11.65 [facility] [place] [address] [id number] [place] [address] May Breast cancer screening Z12.31 and Hematuria, unspecified type R31.9 [facility] [place] [address] [id number] [place] [address] May [facility] [place] [address] [id number] [place] [address] May Type 2 diabetes mellitus with hyperglycemia E11.65 ; Essential hypertension I10 ; Moderately severe depression F32.2 and Confusion R41.0 [place] [address] [address] May, [facility] [place] [address] [id number] [place] [address] May Cerebrovascular accident (CVA), unspecified mechanism I63.9 ; Essential hypertension I10 ; Hyperlipidemia, unspecified E78.5 and Type 2 diabetes mellitus with hyperglycemia E11.65 [place] [address] [address] May, [place] [address], [place] [address] May, [facility] [place] [address] [id number] [place] [address] May [facility] [place] [address] [id number] [place] [address] May Diabetic neuropathy E11.40 and Diabetes E11.9 [facility] [place] [address] [id number] [place] [address] Apr [facility] [place] [address] [id number] [place] [address] Apr Subacute maxillary sinusitis J01.00 ; Hypoglycemia associated with type 2 diabetes mellitus E11.649 and Intractable episodic headache, unspecified headache type R51 [facility] [place] [address] [id number] [place] [address] Apr Diabetic neuropathy E11.40 and Anxiety F41.9 [facility] [place] [address] [id number] [place] [address] Apr [facility] [place] [address] [id number] [place] [address] Apr Type 2 diabetes mellitus with hyperglycemia E11.65 ; Subacute maxillary sinusitis J01.00 ; Diabetic neuropathy E11.40 and Sleep apnea in adult G47.30 [place] [address] [place] [id number] [address] Apr, [facility] [place] [address] [id number] [place] [address] Apr [facility] [place] [address] [id number] [place] [address] Apr [facility] [place] [address] [id number] [place] [address] Apr Subacute maxillary sinusitis J01.00 [place] [address] [place] [address] [id number] [address] Apr, Right foot drop M21.371 [facility] [place] [address] [id number] [place] [address] Apr [facility] [place] [address] [id number] [place] [address] Mar [facility] [place] [address] [id number] [place] [address] Mar Essential hypertension I10 ; Type 2 diabetes mellitus with hyperglycemia E11.65 ; Encounter for immunization Z23 ; Cocaine abuse F14.10 and Hyperlipidemia, unspecified E78.5 [facility] [place] [address] [id number] [place] [address] Mar [place] [address] [facility] [id number] [place] [address] Mar, [facility] [place] [address] [id number] [place] [address] Feb [facility] [place] [address] [id number] [place] [address] Feb Type 2 diabetes mellitus with hyperglycemia E11.65 and Acute right ankle pain M25.571 [facility] [place] [address] [id number] [place] [address] Feb Weight loss R63.[address] An[address] [facility] [address], [place] [address] Jan, [facility] [address] [place] [id number] [place] [address] Jan, [facility] [address], [place] [address] Jan, [facility] [address] [place] [address] Jan, Diabetes E11.9 [facility] [address] [id number] [place] [address] Jan Sprain of right ankle, unspecified ligament, initial encounter S93.401A [facility] [address] [id number] [place] [address] Jan Essential hypertension I10 ; Anxiety F41.9 and Type 2 diabetes mellitus with hyperglycemia E11.65 [facility] [address], [place] [address] Jan, Diabetes E11.9 [facility] [address], [place] [address] Jan, [facility] [address], [place] [address] Jan, [facility] [address] [id number] [place] [address] [facility] [address] [address] Jan, [facility] [address]00565[address] [address] Jan, [facility] [address]00565100[place] [address] Jan, [facility] [address], [place] [address] Jan, [facility] [address], [place] [address] Jan, Unintentional weight loss R63.4 ; Stage 2 chronic kidney disease N18.2 ; Exposure to hepatitis C Z20.5 ; Diabetic neuropathy E11.40 ; Obstructive sleep apnea syndrome G47.33 ; Essential hypertension I10 and Type 2 diabetes mellitus with hyperglycemia E11.65 [facility] [address] 3628265100[place] [address] Jan, [facility] [address] [place] [address] [id number] [place] [address] Jan, Type 2 diabetes mellitus with hyperglycemia E11.65 ; Diabetic neuropathy E11.40 and Essential hypertension I10 [place] [address] [place] [id number] [place] [address] Dec, Diabetes E11.9 [facility] [address] [id number] [place] [address] Dec, [facility] [address] [place] [id number] [place] [address] Dec, [facility] [address] [place] [address] Dec, [facility] [address] [id number] [address] Dec, Dental examination Z01.20 [facility] [address], [place] [address] Dec, [facility] [address], [place] [address] Dec, Diabetes E11.9 [facility] [address], [place] [address] Dec, Stage 2 chronic kidney disease N18.2 ; Exposure to hepatitis C Z20.5 ; Obstructive sleep apnea syndrome G47.33 and Type 2 diabetes mellitus with hyperglycemia E11.65 [facility] [address], [place] [address] Dec, [facility] [place] [address] [id number] [place] [address] Dec Diabetes E11.9 and Essential hypertension I10 [facility] [address] [place] [address] [id number] [address] Nov, Diabetes E11.9 [facility] [address] [id number] [address] Nov, Right foot pain M79.671 [facility] [address] [id number] [address] Nov, Right foot pain M79.671 [facility] [place] [address] [id number] [place] [address] Nov Diabetes E11.9 [facility] [place] [address] [id number] [place] [address] Nov Diabetes E11.9 [facility] [address] [place] [id number] [address] Nov, Dental examination Z01.20 [facility] [place] [address] [id number] [place] [address] Nov Diabetes E11.9 ; Cocaine abuse F14.10 and Shingles (herpes zoster) polyneuropathy B02.23 [facility] [place] [address] [id number] [place] [address] Nov [place] [address] [facility] [id number] [place] [address] October, [facility] [place] [address] [id number] [place] [address] October [facility] [place] [address] [id number] [place] [address] October Unintentional weight loss R63.4 [facility] [place] [address] [id number] [place] [address] October Abscess L02.91 [facility] [place] [address] [id number] [place] [address] October Diabetes E11.9 ; Unintentional weight loss R63.4 ; History of hematuria Z87.448 and Cocaine abuse F14.10 [facility] [place] [address] [id number] [place] [address] October Diabetes E11.9 [facility] [place] [address] [id number] [place] [address] October Essential hypertension I10 and Abscess L02.91 [facility] [place] [address] [id number] [place] [address] Jun [facility] [place] [address] [id number] [place] [address] May Breast cancer screening Z12.39 ; Diabetes E11.9 and Anxiety F41.9 [facility] [place] [address] [facility] [id number] [place] [id number] 16 May, 2016 Diabetes E11.9 [facility] [place] [address] [id number] [place] [address] 15 May Diabetes E11.9 and Anemia D64.9 [facility] [place] [address] [id number] [place] [address] 14 May Anxiety F41.9 [facility] [place] [address] [id number] [place] [address] 08 May [facility] [place] [address] [id number] [place] [address] 06 May Dysuria R30.0 [facility] [place] [address] [id number] [place] [address] 06 May [facility] [place] [address] [id number] [place] [address] 05 May Dysuria R30.0 and Vaginal itching L29.8 [facility] [address] [facility] [id number] [place] [address] 18 Apr, 2016 [facility]ENTERDepotPointK [place] [address] [id number] [place] [address] 14 Apr Diabetes E11.9 ; Dysuria R30.0 ; Diabetic neuropathy E11.40 ; Anemia D64.9 and Vaginal discharge N89.8 [facility] [address] [place] [id number] [place] [address] Jun, [place] [id number] [place] [id number] Jun, Anemia D64.9 ; Anxiety F41.9 ; Diabetes E11.9 and Diabetic neuropathy E11.[address] [id number] May, [facility] [address] [place] [address] [id number] [place] [address] Apr, [address] [id number] Apr, Anemia D64.9 ; Anxiety F41.9 ; Diabetes E11.9 and Diabetic neuropathy E11.[address] [id number] Mar, Acute costochondritis M94.0 [place] [id number] [place] [id number] Mar, Bilateral low back pain without sciatica M54.5 and Bereavement Z63.4 [place] [id number] [place] [id number] Mar, Obstructive chronic bronchitis with acute exacerbation J44.1 ; Herpes zoster without complication B02.9 and Erving N91.2 [place] [id number] [place] [id number] Mar, [place] [id number] [place] [id number] Mar, [place] [id number] [place] [id number] 24 Feb, 2015 History of recent traumatic injury of head V15.52 ; Diabetes type 2, uncontrolled 250.02 and Visual disturbance 368.[address] [id number] [place] [id number] 17 Feb, 2015 History of recent traumatic injury of head V15.52 ; Visual disturbance 368.9 and Diabetes type 2, uncontrolled 250.02 IMMUNIZATIONS No Known Immunizations SOCIAL HISTORY Never Assessed REASON FOR VISIT Consult PLAN OF CARE VITAL SIGNS MEDICATIONS Unknown [...] infection 2004 Hospitalization History in rehab at [facility] 2016 Hospitalization History Stroke 05/2017 Hospitalization History surgeries Hospitalization History Elevated B/S 07/2017
--- OUTSIDE RECORDS SUMMARY | 2018-05-13 10:57 | XMS REPORT ---
Author Author BARRETT SCHRADER Organization [facility] Address [address] [place] [address] Care Team Providers Care Photogrammetrist Name Role Phone BARRETT SCHRADER Unavailable PROBLEMS Type Condition ICD9-CM Code FON62-NN Code Onset Dates Condition Status SNOMED Code Problem Type 2 diabetes mellitus with hyperglycemia E11.65 Active 476392796247690 Problem Sleep apnea in adult G47.30 Active 48085502 Problem Hyperlipidemia, unspecified E78.5 Active 08210194 Problem Abnormal mammogram of right breast R92.8 Active 186391230 Problem Breast asymmetry N64.89 Active 248829551 Problem Moderately severe depression F32.2 Active 706987704 Problem Hypoglycemia associated with type 2 diabetes mellitus E11.649 Active 194825331 Problem Hypoglycemia E16.2 Active 176892298 Problem Cerebrovascular accident (CVA), unspecified mechanism I63.9 Active 060462688 Problem Essential hypertension I10 Active 76836375 Problem Cocaine abuse F14.10 Active 50780741 Problem Diabetic neuropathy E11.40 Active 165490258 Problem Stage 2 chronic kidney disease N18.2 Active 577737793 Problem Anxiety F41.9 Active 41398869 Problem Obstructive sleep apnea syndrome G47.33 Active 45813853 ALLERGIES Substance Reaction Event Type Date Status Phenergan nausea Drug Allergy Mar, Active Penicillin V Potassium nausea Drug Allergy Mar, Active Codeine Sulfate itch Drug Allergy Mar, Active ENCOUNTERS Encounter Location Date Diagnosis [facility] [address] [id number] [place] [address] October Sleep apnea in adult G47.30 [facility] [address] [id number] [place] [address] October Type 2 diabetes mellitus with hyperglycemia E11.65 [facility] [address] [id number] [place] [address] Sep [facility] [place] [address] [id number] [place] [address] Sep Breast asymmetry N64.89 [facility] [place] [address] [id number] [place] [address] Sep [facility] [place] [address] [id number] [place] [address] Sep Type 2 diabetes mellitus with hyperglycemia E11.65 ; Cocaine abuse F14.10 and Open wound of right great toe, subsequent encounter S91.101D [facility] [place] [address] [id number] [place] [address] Sep [facility] [place] [address] [id number] [place] [address] Aug [facility] [place] [address] [id number] [place] [address] Aug [facility] [place] [address] [id number] [place] [address] Aug Type 2 diabetes mellitus with hyperglycemia E11.65 [facility] [place] [address] [id number] [place] [address] Aug [facility] [address] [facility] [place] [id number] [place] [address] Aug, [facility] [place] [address] [id number] [place] [address] Jul [facility] [place] [address] [id number] [place] [address] Jul Diabetic neuropathy E11.40 ; Essential hypertension I10 and Type 2 diabetes mellitus with hyperglycemia E11.65 [facility] [place] [address] [id number] [place] [address] Jul [facility] [place] [address] [id number] [place] [address] Jul [facility] [place] [address] [id number] [place] [address] Jul [facility] [place] [address] [id number] [place] [address] Jul [facility] [place] [address] [id number] [place] [address] Jul [facility] [place] [address] [id number] [place] [address] Jul Type 2 diabetes mellitus with hyperglycemia E11.65 ; Open wound of right great toe, subsequent encounter S91.101D ; Essential hypertension I10 and Diabetic neuropathy E11.40 [facility] [id number] [place] [id number] Jul, [facility] [place] [address] [id number] [place] [address] Jun [facility] [place] [address] [id number] [place] [address] Jun Type 2 diabetes mellitus with hyperglycemia E11.65 [facility] [place] [address] [id number] [place] [address] Jun [facility] [place] [address] [id number] [place] [address] Jun [facility] [place] [address] [id number] [place] [address] Jun Abnormal mammogram of right breast R92.8 and Breast asymmetry N64.89 [facility] [place] [address] [id number] [place] [address] Jun [facility] [place] [address] [id number] [place] [address] Jun [facility] [place] [address] [id number] [place] [address] May Hypoglycemia E16.2 [facility] [place] [address] [id number] [place] [address] May Abnormal neurological exam R29.90 [facility] [place] [address] [id number] [place] [address] May [facility] [place] [address] [id number] [place] [address] May Type 2 diabetes mellitus with hyperglycemia E11.65 [facility] [place] [address] [id number] [place] [address] May Breast cancer screening Z12.31 and Hematuria, unspecified type R31.9 [facility] [place] [address] [id number] [place] [address] May [facility] [place] [address] [id number] [place] [address] May Type 2 diabetes mellitus with hyperglycemia E11.65 ; Essential hypertension I10 ; Moderately severe depression F32.2 and Confusion R41.0 [place] [address] [id number] [address] 13 May, 2017 [facility] [place] [address] [id number] [place] [address] 08 May Cerebrovascular accident (CVA), unspecified mechanism I63.9 ; Essential hypertension I10 ; Hyperlipidemia, unspecified E78.5 and Type 2 diabetes mellitus with hyperglycemia E11.65 [place] [address], [place] [address] 07 May, 2017 [place] [address] [place] [address] May, [facility] [address] [id number] [place] [address] May [facility] [address] [id number] [place] [address] May Diabetic neuropathy E11.40 and Diabetes E11.9 [facility] [place] [address] [id number] [place] [address] Apr [facility] [place] [address] [id number] [place] [address] Apr Subacute maxillary sinusitis J01.00 ; Hypoglycemia associated with type 2 diabetes mellitus E11.649 and Intractable episodic headache, unspecified headache type R51 [facility] [place] [address] [id number] [place] [address] Apr Diabetic neuropathy E11.40 and Anxiety F41.9 [facility] [place] [address] [id number] [place] [address] Apr [facility] [place] [address] [id number] [place] [address] Apr Type 2 diabetes mellitus with hyperglycemia E11.65 ; Subacute maxillary sinusitis J01.00 ; Diabetic neuropathy E11.40 and Sleep apnea in adult G47.30 [facility] [address] [id number] [place] [address] Apr, [facility] [place] [address] [id number] [place] [address] Apr [facility] [place] [address] [id number] [place] [address] Apr [facility] [place] [address] [id number] [place] [address] Apr Subacute maxillary sinusitis J01.00 [place] [address] [id number] [address] Apr, Right foot drop M21.371 [facility] [place] [address] [id number] [place] [address] Apr [facility] [place] [address] [id number] [place] [address] Mar [facility] [place] [address] [id number] [place] [address] Mar Essential hypertension I10 ; Type 2 diabetes mellitus with hyperglycemia E11.65 ; Encounter for immunization Z23 ; Cocaine abuse F14.10 and Hyperlipidemia, unspecified E78.5 [facility] [place] [address] [id number] [place] [address] Mar [facility] [address] [facility] [place] [id number] [place] [address] Mar, [facility] [place] [address] [id number] [place] [address] Feb [facility] [place] [address] [id number] [place] [address] Feb Type 2 diabetes mellitus with hyperglycemia E11.65 and Acute right ankle pain M25.571 [facility] [place] [address] [id number] [place] [address] Feb Weight loss R63.4 and Anxiety F41.9 [facility] [address], [place] [address] Jan, [facility] [address] [place] [address] Jan, [facility] [address] [place] [address] Jan, [facility] [address] [place] [address] Jan, Diabetes E11.9 [facility] [address] [id number] [place] [address] Jan Sprain of right ankle, unspecified ligament, initial encounter S93.401A [facility] [place] [address] [id number] [place] [address] Jan Essential hypertension I10 ; Anxiety F41.9 and Type 2 diabetes mellitus with hyperglycemia E11.65 [facility] [address] [place] [address] Jan, Diabetes E11.9 [facility] [address], [place] [address] Jan, [facility] [address], [place] [address] Jan, [facility] [address] [id number] [place] [address] Jan [facility] [address], [place] [address] Jan, [facility] [address], [place] [address] Jan, [facility] [address], [place] [address] Jan, [facility] [address], [place] [address] Jan, [facility] [id number] [place] [address] Jan, Unintentional weight loss R63.4 ; Stage 2 chronic kidney disease N18.2 ; Exposure to hepatitis C Z20.5 ; Diabetic neuropathy E11.40 ; Obstructive sleep apnea syndrome G47.33 ; Essential hypertension I10 and Type 2 diabetes mellitus with hyperglycemia E11.65 [facility] [address] 1314865100[place], [place] [address] Jan, [facility] [address] [place] [address] Jan, Type 2 diabetes mellitus with hyperglycemia E11.65 ; Diabetic neuropathy E11.40 and Essential hypertension I10 [place] [address] [place] [address] Dec, Diabetes E11.9 [facility] [address], [place] [address] Dec, [facility] [id number] [place] [address] Dec, [facility] [address], [place] [address] Dec, [facility] [address], [place] [address] Dec, Dental examination Z01.20 [facility] [address], [place] [address] Dec, [facility] [address] [place] [address] Dec, Diabetes E11.9 [facility] [address], [place] [address] Dec, Stage 2 chronic kidney disease N18.2 ; Exposure to hepatitis C Z20.5 ; Obstructive sleep apnea syndrome G47.33 and Type 2 diabetes mellitus with hyperglycemia E11.65 [facility] [address] [facility] [id number] [place] [address] Dec, [facility] [address] [id number] [place] [address] Dec Diabetes E11.9 and Essential hypertension I10 [facility] [address] [id number], [place] [address] Nov, Diabetes E11.9 [facility] [address] 81999B00565100[place], [place] [address] Nov, Right foot pain M79.671 [facility] [id number] [place] [address] Nov, Right foot pain M79.671 [facility] [address] [id number] [place] [address] Nov Diabetes E11.9 [facility] [address] [id number] [place] [address] Nov Diabetes E11.9 [facility] [address] [facility] [id number] [place] [address] Nov, Dental examination Z01.20 [facility] [address] [id number] [place] [address] Nov Diabetes E11.9 ; Cocaine abuse F14.10 and Shingles (herpes zoster) polyneuropathy B02.23 [facility] [address] [id number] [place] [address] Nov [facility] [address] [facility] [id number] [place] [address] October, [facility] [place] [address] [id number] [place] [address] October [facility] [address] [id number] [place] [address] October Unintentional weight loss R63.4 [facility] [address] [id number] [place] [address] October Abscess L02.91 [facility] [place] [address] [id number] [place] [address] October Diabetes E11.9 ; Unintentional weight loss R63.4 ; History of hematuria Z87.448 and Cocaine abuse F14.10 [facility] [place] [address] [id number] [place] [address] October Diabetes E11.9 [facility] [place] [address] [id number] [place] [address] October Essential hypertension I10 and Abscess L02.91 [facility] [place] [address] [id number] [place] [address] Jun [facility] [place] [address] [id number] [place] [address] May Breast cancer screening Z12.39 ; Diabetes E11.9 and Anxiety F41.9 [facility] [place] [address] [facility] [id number] [place] [address] 16 May, 2016 Diabetes E11.9 [facility] [place] [address] [id number] [place] [address] 15 May Diabetes E11.9 and Anemia D64.9 [facility] [place] [address] [id number] [place] [address] 14 May Anxiety F41.9 [facility] [place] [address] [id number] [place] [address] 08 May [facility] [place] [address] [id number] [place] [address] May Dysuria R30.0 [facility] [place] [address] [id number] [place] [address] May [facility] [place] [address] [id number] [place] [address] 05 May Dysuria R30.0 and Vaginal itching L29.8 [facility] [address] [facility] [id number] [place] [address] Apr, [facility] [place] [address] [id number] [place] [address] Apr Diabetes E11.9 ; Dysuria R30.0 ; Diabetic neuropathy E11.40 ; Anemia D64.9 and Vaginal discharge N89.8 [place] [address] [place] [address] Jun, [place] [id number] [place] [id number] Jun, Anemia D64.9 ; Anxiety F41.9 ; Diabetes E11.9 and Diabetic neuropathy E11.40 [place] [id number] [place] [id number] May, [facility] [address] [place] [address] Apr, [place] [id number] [place] [id number] Apr, Anemia D64.9 ; Anxiety F41.9 ; Diabetes E11.9 and Diabetic neuropathy E11.40 [place] [id number] [place] [id number] Mar, Acute costochondritis M94.0 [place] [id number] [place] [id number] Mar, Bilateral low back pain without sciatica M54.5 and Bereavement Z63.4 [place] [id number] [place] [id number] Mar, Obstructive chronic bronchitis with acute exacerbation J44.1 ; Herpes zoster without complication B02.9 and [place] N91.[address] [id number] Mar, [place] [id number] [place] [phone] Mar, [address] [id number] Feb, History of recent traumatic injury of head V15.52 ; Diabetes type 2, uncontrolled 250.02 and Visual disturbance 368.9 [facility] [place] [address] [facility] [id number] [place] [phone] Feb, History of recent traumatic injury of head V15.52 ; Visual disturbance 368.9 and Diabetes type 2, uncontrolled 250.02 IMMUNIZATIONS Vaccine Route Administration Date Status FLUARIX QUAD (3 AND UP) 2016 IM Intramuscular Apr 04, 2017 Administered PPSV23 (PNEUMOVAX) IM Intramuscular Apr 04, 2017 Administered SOCIAL HISTORY Never Assessed REASON FOR VISIT Diabetes, Pt states her equilbrium is off, chest gets tigh when she coughs., Pt states feels like her B/S is high. ROSA Garcia PLAN OF CARE Activity Details Follow Up 4 Weeks Reason:DMT2 VITAL SIGNS Height 63.50 in 2017-04-04 Weight 115.0 lbs 2017-04-04 Temperature 98.0 degrees Fahrenheit 2017-04-04 Heart Rate 88 bpm 2017-04-04 Respiratory Rate 18 2017-04-04 BMI 20.05 kg/m2 2017-04-04 Blood pressure systolic 174 mmHg 2017-04-04 Blood pressure diastolic 98 mmHg 2017-04-04 MEDICATIONS Medication Instructions Dosage Frequency Start Date End Date Duration Status Neurontin 300 MG Orally Once a day 1 capsule 24h Jan, 30 day(s ) Active Lisinopril 20 MG Orally Once a day 1 tablet 24h Jan, 30 day(s) Active Pen [place] 31G X 6 MM as directed 24h Apr, 30 days Active HydrOXYzine HCl 25 MG Orally 2 times a day as needed for anxieyt 1 tablet as needed Feb, 30 day(s) Active Ropinirole HCl 1 MG Orally at bedtime 1 tablet 1 to 3 hours before bedtime 30 days Active Glucocard Expression Test - subcutaneously 2 times a day as directed 12h Nov, 30 days Active Simvastatin 40 mg Orally Once a day 1 tablet in the evening 24h 90 days Active MetFORMIN HCl ER 500 mg Orally 2 times a day 2 tablet 12h 30 days Active RESULTS Name Result Date Reference Range GLUCOSE FINGERSTICK (IN HOUSE) 2017-04-04 GLU FINGERSTICK 236 PC Lot # [id number] Exp date 05/2017 URINE DRUG SCREEN (IN HOUSE) 2017-04-04 Lot # [id number] Exp date 05/08/2018 Control + COCAINE positive AMPH negative MTD negative THC negatiev OPIATE negative BENZO negative PCP negative BAR negative OXY negative MAMP negative TCA positive BUP negative MDMA negative PROCEDURES Procedure Date Ordered Result Body Site DRUG TEST PRSMV DIR OPT OBS Apr 04, 2017 GLUCOSE BLOOD TEST Apr 04, 2017 PPSV23 (PNEUMOVAX) Apr 04, 2017 FLUARIX QUAD (3 AND UP) 2016Apr 04, 2017 IMMUNIZATION ADMIN, EACH ADD (please include units) Apr 04, 2017 SINGLE IMMUNIZATION ADMIN Apr 04, 2017 INSTRUCTIONS MEDICATIONS ADMINISTERED No Known Medications [...] infection 2005 Hospitalization History in rehab at [place] 2016 Hospitalization History Stroke 05/2017 Hospitalization History surgeries Hospitalization History Elevated B/S 07/2017
--- OUTSIDE RECORDS SUMMARY | 2018-05-13 10:58 | XMS REPORT ---
Author Author CHRIS BECKWITH [facility] Address [address] [place] [address] Care Team Providers Care Husker Operator Name Role Phone CHRIS BECKWITH Unavailable PROBLEMS Type Condition ICD9-CM Code DEW96-DL Code Onset Dates Condition Status SNOMED Code Problem Anxiety F41.9 Active 83721427 Problem Diabetic neuropathy E11.40 Active 706514014 Problem Hyperlipidemia, unspecified E78.5 Active 66577347 Problem Type 2 diabetes mellitus with hyperglycemia E11.65 Active 546707699229291 Problem Cocaine abuse F14.10 Active 55127387 Problem Essential hypertension I10 Active 10125938 Problem Obstructive sleep apnea syndrome G47.33 Active 22153191 Problem Stage 2 chronic kidney disease N18.2 Active 537228170 ALLERGIES No Information SOCIAL HISTORY Never Assessed PLAN OF CARE VITAL SIGNS MEDICATIONS Unknown Medications RESULTS No Results PROCEDURES No Known procedures IMMUNIZATIONS No Known Immunizations MEDICAL (GENERAL) HISTORY Type Description Date Medical History Diabetes Medical History hypertension Medical History hyperlipidemia Medical History neuropathy Surgical History Hysterectomy 1998 Surgical History cyst on left breast removed Hospitalization History high blood glucose and kidney infection 2004 Hospitalization History in rehab at [place] [address]
--- OUTSIDE RECORDS SUMMARY | 2018-05-13 10:58 | XMS REPORT ---
Author Author CHRIS BECKWITH [facility] Address [address] [place] [address] Care Team Providers Care Business Administration Teacher Name Role Phone CHRIS BECKWITH Unavailable PROBLEMS Type Condition ICD9-CM Code ETR16-PK Code Onset Dates Condition Status SNOMED Code Problem Type 2 diabetes mellitus with hyperglycemia E11.65 Active 501849198281011 Problem Sleep apnea in adult G47.30 Active 57191171 Problem Hyperlipidemia, unspecified E78.5 Active 48132569 Problem Abnormal mammogram of right breast R92.8 Active 295453996 Problem Breast asymmetry N64.89 Active 744855093 Problem Moderately severe depression F32.2 Active 365345564 Problem Hypoglycemia associated with type 2 diabetes mellitus E11.649 Active 058576430 Problem Hypoglycemia E16.2 Active 034327754 Problem Cerebrovascular accident (CVA), unspecified mechanism I63.9 Active 175855548 Problem Essential hypertension I10 Active 84995244 Problem Cocaine abuse F14.10 Active 44927824 Problem Diabetic neuropathy E11.40 Active 244126098 Problem Stage 2 chronic kidney disease N18.2 Active 370233362 Problem Anxiety F41.9 Active 91225129 Problem Obstructive sleep apnea syndrome G47.33 Active 23491063 ALLERGIES Substance Reaction Event Type Date Status Phenergan nausea Drug Allergy Apr, Active Penicillin V Potassium nausea Drug Allergy Apr, Active Codeine Sulfate itch Drug Allergy Apr, Active ENCOUNTERS Encounter Location Date [facility] [address] [id number] [place] [address] Nov [facility] [address] [id number] [place] [address] Nov [facility] [address] [id number] [place] [address] October [facility] [address] [id number] [place] [address] October [facility] [place] [address] [id number] [place] [address] October Type 2 diabetes mellitus with hyperglycemia E11.65 and Surgical procedure on lower extremity within past 6 months Z98.890 [facility] [place] [address] [id number] [place] [address] October [facility] [place] [address] [id number] [place] [address] October [facility] [address] [facility] [id number] [place] [address] October, [facility] [place] [address] [id number] [place] [address] October Sleep apnea in adult G47.30 [facility] [place] [address] [id number] [place] [address] October Type 2 diabetes mellitus with hyperglycemia E11.65 [facility] [place] [address] [id number] [place] [address] Sep [facility] [place] [address] [id number] [place] [address] Sep Breast asymmetry N64.89 [facility] [place] [address] [id number] [place] [address] Sep [facility] [place] [address] [id number] [place] [address] Sep Type 2 diabetes mellitus with hyperglycemia E11.65 ; Cocaine abuse F14.10 and Open wound of right great toe, subsequent encounter S91.101D [facility] [place] [address] [id number] [place] [address] Sep [facility] [place] [address] [id number] [place] [address] Aug [facility] [place] [address] [id number] [place] [address] Aug [facility] [place] [address] [id number] [place] [address] Aug Type 2 diabetes mellitus with hyperglycemia E11.65 [facility] [place] [address] [id number] [place] [address] Aug [facility] [address] [facility] [id number] [place] [address] Aug, [facility] [place] [address] [id number] [place] [address] Jul [facility] [place] [address] [id number] [place] [address] Jul Diabetic neuropathy E11.40 ; Essential hypertension I10 and Type 2 diabetes mellitus with hyperglycemia E11.65 [facility] [place] [address] [id number] [place] [address] Jul [facility] [place] [address] [id number] [place] [address] Jul [facility] [place] [address] [id number] [place] [address] Jul [facility] [place] [address] [id number] [place] [address] Jul [facility] [place] [address] [id number] [place] [address] Jul [facility] [place] [address] [id number] [place] [address] Jul Type 2 diabetes mellitus with hyperglycemia E11.65 ; Open wound of right great toe, subsequent encounter S91.101D ; Essential hypertension I10 and Diabetic neuropathy E11.[address] [facility] [address] [address] [id number] [place] [id number] Jul, [facility] [place] [address] [id number] [place] [address] Jun [facility] [place] [address] [id number] [place] [address] Jun Type 2 diabetes mellitus with hyperglycemia E11.65 [facility] [place] [address] [id number] [place] [address] Jun [facility] [place] [address] [id number] [place] [address] Jun [facility] [place] [address] [id number] [place] [address] Jun Abnormal mammogram of right breast R92.8 and Breast asymmetry N64.89 [facility] [place] [address] [id number] [place] [address] Jun [facility] [place] [address] [id number] [place] [address] Jun [facility] [place] [address] [id number] [place] [address] May Hypoglycemia E16.2 [facility] [place] [address] [id number] [place] [address] May Abnormal neurological exam R29.90 [facility] [place] [address] [id number] [place] [address] May [facility] [place] [address] [id number] [place] [address] May Type 2 diabetes mellitus with hyperglycemia E11.65 [facility] [place] [address] [id number] [place] [address] May Breast cancer screening Z12.31 and Hematuria, unspecified type R31.9 [facility] [place] [address] [id number] [place] [address] May [facility] [place] [address] [id number] [place] [address] May Type 2 diabetes mellitus with hyperglycemia E11.65 ; Essential hypertension I10 ; Moderately severe depression F32.2 and Confusion R41.0 [place] [address] [id number] [place] [address] May, [facility] [place] [address] [id number] [place] [address] May Cerebrovascular accident (CVA), unspecified mechanism I63.9 ; Essential hypertension I10 ; Hyperlipidemia, unspecified E78.5 and Type 2 diabetes mellitus with hyperglycemia E11.65 [place] [address] [facility] [id number] [place] [address] May, [facility] [address] [facility] [id number] [place] [address] May, [facility] [place] [address] [id number] [place] [address] May [facility] [place] [address] [id number] [place] [address] May Diabetic neuropathy E11.40 and Diabetes E11.9 [facility] [place] [address] [id number] [place] [address] Apr [facility] [place] [address] [id number] [place] [address] Apr Subacute maxillary sinusitis J01.00 ; Hypoglycemia associated with type 2 diabetes mellitus E11.649 and Intractable episodic headache, unspecified headache type R51 [facility] [place] [address] [id number] [place] [address] Apr Diabetic neuropathy E11.40 and Anxiety F41.9 [facility] [place] [address] [id number] [place] [address] Apr [facility] [place] [address] [id number] [place] [address] Apr Type 2 diabetes mellitus with hyperglycemia E11.65 ; Subacute maxillary sinusitis J01.00 ; Diabetic neuropathy E11.40 and Sleep apnea in adult G47.30 [facility] [address] [facility] [id number] [place] [address] Apr, [facility] [place] [address] [id number] [place] [address] Apr [facility] [place] [address] [id number] [place] [address] Apr [facility] [place] [address] [id number] [place] [address] Apr Subacute maxillary sinusitis J01.00 [facility] [address] [facility] [id number] [place] [address] Apr, Right foot drop M21.371 [facility] [place] [address] [id number] [place] [address] Apr [facility] [place] [address] [id number] [place] [address] Mar [facility] [place] [address] [id number] [place] [address] Mar Essential hypertension I10 ; Type 2 diabetes mellitus with hyperglycemia E11.65 ; Encounter for immunization Z23 ; Cocaine abuse F14.10 and Hyperlipidemia, unspecified E78.5 [facility] [place] [address] [id number] [place] [address] Mar [place] [id number] [place] [address] Mar, [facility] [place] [address] [id number] [place] [address] Feb [facility] [place] [address] [id number] [place] [address] Feb Type 2 diabetes mellitus with hyperglycemia E11.65 and Acute right ankle pain M25.571 [facility] [place] [address] [id number] [place] [address] Feb Weight loss R63.4 and Anxiety F41.9 [place] [address] [address] Jan, [place] [id number] [place] [address] Jan, [place] [address] [place] [address] Jan, [place] [address] [place] [address] Jan, Diabetes E11.9 [facility] [place] [address] [id number] [place] [address] Jan Sprain of right ankle, unspecified ligament, initial encounter S93.401A [facility] [place] [address] [id number] [place] [address] Jan Essential hypertension I10 ; Anxiety F41.9 and Type 2 diabetes mellitus with hyperglycemia E11.65 [facility] [id number] [place] [address] Jan, Diabetes E11.9 [facility] [id number] [place] [address] Jan, [facility] [address] [place] [address] Jan, [facility] [address] [id number] [place] [address] [facility] [id number] [place] [address] Jan, [facility] [id number] [place] [address] Jan, [facility] [id number] [place] [address] Jan, [facility] [address] [place] [address] Jan, [facility] [address] [place] [address] Jan, Unintentional weight loss R63.4 ; Stage 2 chronic kidney disease N18.2 ; Exposure to hepatitis C Z20.5 ; Diabetic neuropathy E11.40 ; Obstructive sleep apnea syndrome G47.33 ; Essential hypertension I10 and Type 2 diabetes mellitus with hyperglycemia E11.65 [facility] [address], [place] [address] Jan, [facility] [address] [place] [address] Jan, Type 2 diabetes mellitus with hyperglycemia E11.65 ; Diabetic neuropathy E11.40 and Essential hypertension I10 [facility] [address] [place] [address] Dec, Diabetes E11.9 [facility] [address] [id number] [address] Dec, [facility] [address] [address] Dec, [facility] [address], [place] [address] Dec, [facility] [address] [place] [address] Dec, Dental examination Z01.20 [facility] [address], [place] [address] Dec, [facility] [address] [place] [address] Dec, Diabetes E11.9 [facility] [address], [place] [address] Dec, Stage 2 chronic kidney disease N18.2 ; Exposure to hepatitis C Z20.5 ; Obstructive sleep apnea syndrome G47.33 and Type 2 diabetes mellitus with hyperglycemia E11.65 [facility] [address], [place] [address] Dec, [facility] [place] [address] [id number] [place] [address] Dec Diabetes E11.9 and Essential hypertension I10 [facility] [address] [id number] [address] Nov, Diabetes E11.9 [facility] [address] [id number] [address] Nov, Right foot pain M79.671 [facility] [address] [id number] [address] Nov, Right foot pain M79.671 [facility] [address] [id number] [place] [address] Nov Diabetes E11.9 [facility] [address] [id number] [place] [address] Nov Diabetes E11.9 [facility] [address] [id number] [place] [address] Nov, Dental examination Z01.20 [facility] [address] [id number] [place] [address] 09 Nov Diabetes E11.9 ; Cocaine abuse F14.10 and Shingles (herpes zoster) polyneuropathy B02.23 [facility] [place] [address] [id number] [place] [address] Nov [facility] [address] [facility] [id number] [place] [address] October, [facility] [place] [address] [id number] [place] [address] October [facility] [place] [address] [id number] [place] [address] October Unintentional weight loss R63.4 [facility] [place] [address] [id number] [place] [address] October Abscess L02.91 [facility] [place] [address] [id number] [place] [address] October Diabetes E11.9 ; Unintentional weight loss R63.4 ; History of hematuria Z87.448 and Cocaine abuse F14.10 [facility] [place] [address] [id number] [place] [address] October Diabetes E11.9 [facility] [place] [address] [id number] [place] [address] October Essential hypertension I10 and Abscess L02.91 [facility] [place] [address] [id number] [place] [address] Jun [facility] [place] [address] [id number] [place] [address] May Breast cancer screening Z12.39 ; Diabetes E11.9 and Anxiety F41.9 [facility] [place] [address] [facility] [id number] [place] [address] May, Diabetes E11.9 [facility] [place] [address] [id number] [place] [address] 15 May Diabetes E11.9 and Anemia D64.9 [facility] [place] [address] [id number] [place] [address] May Anxiety F41.9 [facility] [place] [address] [id number] [place] [address] May [facility] [place] [address] [id number] [place] [address] May Dysuria R30.0 [facility] [place] [address] [id number] [place] [address] May [facility] [place] [address] [id number] [place] [address] May Dysuria R30.0 and Vaginal itching L29.8 [facility] [address] [place] [address] Apr, [facility] [place] [address] [id number] [place] [address] Apr Diabetes E11.9 ; Dysuria R30.0 ; Diabetic neuropathy E11.40 ; Anemia D64.9 and Vaginal discharge N89.8 [facility] [address], [place] [address] Jun, [place] [id number] [address] Jun, Anemia D64.9 ; Anxiety F41.9 ; Diabetes E11.9 and Diabetic neuropathy E11.[address] [place] [id number] May, [facility] [address] [place] [address] Apr, [address]65[address] [id number] Apr, Anemia D64.9 ; Anxiety F41.9 ; Diabetes E11.9 and Diabetic neuropathy E11.[address] [place] [id number] Mar, Acute costochondritis M94.0 [place] [address] [place] [id number] Mar, Bilateral low back pain without sciatica M54.5 and Bereavement Z63.[address] [id number] Mar, Obstructive chronic bronchitis with acute exacerbation J44.1 ; Herpes zoster without complication B02.9 and [place] N91.2 [place] [place] [id number] Mar, [place] [address] [place] [id number] Mar, [place] [address] [place] [id number] Feb, History of recent traumatic injury of head V15.52 ; Diabetes type 2, uncontrolled 250.02 and Visual disturbance 368.[address] [place] [id number] Feb, History of recent traumatic injury of head V15.52 ; Visual disturbance 368.9 and Diabetes type 2, uncontrolled 250.02 IMMUNIZATIONS No Known Immunizations SOCIAL HISTORY Never Assessed REASON FOR VISIT Diabetes follow-up. ROSA Garcia PLAN OF CARE Activity Details Follow Up 4 Weeks Reason:dm f/u VITAL SIGNS Height 63.50 in 2017-05-06 Weight 112.8 lbs 2017-05-06 Temperature 97.2 degrees Fahrenheit 2017-05-06 Heart Rate 98 bpm 2017-05-06 Respiratory Rate 18 2017-05-06 BMI 19.67 kg/m2 2017-05-06 Blood pressure systolic 150 mmHg 2017-05-06 Blood pressure diastolic 84 mmHg 2017-05-06 MEDICATIONS Medication Instructions Dosage Frequency Start Date End Date Duration Status Glimepiride 4 MG Orally Once a day 1 tablet with breakfast or the first main meal of the day 24h 28 Apr, 2017 Active NovoLog Flexpen 100 UNIT/ML Subcutaneous 3 times a day 3 units 8h Jan, Not-Taking HydrOXYzine HCl 25 MG Orally 2 times a day as needed for anxieyt 1 tablet as needed Feb, 30 day(s) Active Simvastatin 40 mg Orally Once a day 1 tablet in the evening 24h 90 days Active Tresiba FlexTouch 100 UNIT/ML Subcutaneous at bedtime Inject 10 units Jan, Not-Taking Lisinopril 20 MG Orally Once a day 1 tablet 24h Jan, 30 day(s) Active Neurontin 300 MG Orally Once a day 1 capsule 24h Jan, 30 day(s ) Active Fluticasone Propionate 50 MCG/ACT Nasally Once a day 1 spray in each nostril 24h 30 day(s) Active Multi Complete Not-Taking Glucocard Expression Test - as directed 12Nov, Not- Taking Pen Squire 31G X 6 MM as directed 24h Apr, 30 days Active MetFORMIN HCl ER 500 mg Orally 2 times a day 2 tablet 12h 30 days Active Glucocard Expression Test - subcutaneously 2 times a day as directed 12Nov, 30 days Active Ropinirole HCl 1 MG Orally at bedtime 1 tablet 1 to 3 hours before bedtime 30 days Active RESULTS Name Result Date Reference Range A1C (IN HOUSE) 2017-05-06 A1C IN HOUSE 9.2 4.3 - 5.6 % Previous A1c 8.2 Lot [id number] Exp date PROCEDURES Procedure Date Ordered Result Body Site SLEEP STUDY ([facility]) 2017-05-06 N/A GLYCATED HEMOGLOBIN TEST May 06, 2017 INSTRUCTIONS MEDICATIONS ADMINISTERED No Known Medications [...] Surgical History peripheral vascular stent placement 10/2017 Hospitalization History high blood glucose and kidney infection 2005 Hospitalization History in rehab at [place] 2016 Hospitalization History Stroke 05/2017 Hospitalization History surgeries Hospitalization History Elevated B/S 07/2017 Hospitalization History [facility] - blood clot LRE 10/2017
--- OUTSIDE RECORDS SUMMARY | 2018-05-13 10:58 | XMS REPORT ---
Author Author BARRETT SCHRADER [facility] Address [address] [place] [address] Care Team Providers Care Sales Negotiator Name Role Phone BARRETT SCHRADER Unavailable PROBLEMS Type Condition ICD9-CM Code EKN80-VK Code Onset Dates Condition Status SNOMED Code Problem Type 2 diabetes mellitus with hyperglycemia E11.65 Active 082182066256209 Problem Sleep apnea in adult G47.30 Active 81236018 Problem Hyperlipidemia, unspecified E78.5 Active 91154320 Problem Abnormal mammogram of right breast R92.8 Active 657681340 Problem Breast asymmetry N64.89 Active 995487223 Problem Moderately severe depression F32.2 Active 355758548 Problem Hypoglycemia associated with type 2 diabetes mellitus E11.649 Active 098192371 Problem Hypoglycemia E16.2 Active 912466003 Problem Cerebrovascular accident (CVA), unspecified mechanism I63.9 Active 473905107 Problem Essential hypertension I10 Active 26820821 Problem Cocaine abuse F14.10 Active 36397926 Problem Diabetic neuropathy E11.40 Active 100128917 Problem Stage 2 chronic kidney disease N18.2 Active 287121721 Problem Anxiety F41.9 Active 17581092 Problem Obstructive sleep apnea syndrome G47.33 Active 40357833 ALLERGIES Substance Reaction Event Type Date Status Phenergan nausea Drug Allergy Dec, Active Penicillin V Potassium nausea Drug Allergy Dec, Active CODIENE Unknown Non Drug Allergy Dec, Active ENCOUNTERS Encounter Location Date Diagnosis [facility] [place] [address] [id number] [place] [address] Aug [facility] [address] [id number] [place] [address] Aug [facility] [place] [address] [id number] [place] [address] Aug Type 2 diabetes mellitus with hyperglycemia E11.65 [facility] [address] [id number] [place] [address] Aug [facility] [address] [facility] [id number] [place] [address] Aug, [facility] [place] [address] [id number] [place] [address] Jul [facility] [place] [address] [id number] [place] [address] Jul Diabetic neuropathy E11.40 ; Essential hypertension I10 and Type 2 diabetes mellitus with hyperglycemia E11.65 [facility] [place] [address] [id number] [place] [address] Jul [facility] [place] [address] [id number] [place] [address] Jul [facility] [place] [address] [id number] [place] [address] Jul [facility] [place] [address] [id number] [place] [address] Jul [facility] [place] [address] [id number] [place] [address] Jul [facility] [place] [address] [id number] [place] [address] Jul Type 2 diabetes mellitus with hyperglycemia E11.65 ; Open wound of right great toe, subsequent encounter S91.101D ; Essential hypertension I10 and Diabetic neuropathy E11.40 [facility] [address] [id number] [place] [id number] Jul, [facility] [place] [address] [id number] [place] [address] Jun [facility] [place] [address] [id number] [place] [address] Jun Type 2 diabetes mellitus with hyperglycemia E11.65 [facility] [place] [address] [id number] [place] [address] Jun [facility] [place] [address] [id number] [place] [address] Jun [facility] [place] [address] [id number] [place] [address] Jun Abnormal mammogram of right breast R92.8 and Breast asymmetry N64.89 [facility] [place] [address] [id number] [place] [address] Jun [facility] [place] [address] [id number] [place] [address] Jun [facility] [place] [address] [id number] [place] [address] May Hypoglycemia E16.2 [facility] [place] [address] [id number] [place] [address] May Abnormal neurological exam R29.90 [facility] [place] [address] [id number] [place] [address] May [facility] [place] [address] [id number] [place] [address] May Type 2 diabetes mellitus with hyperglycemia E11.65 [facility] [place] [address] [id number] [place] [address] May Breast cancer screening Z12.31 and Hematuria, unspecified type R31.9 [facility] [place] [address] [id number] [place] [address] May [facility]ITAL[facility]-LogicG[facility] [place] [address] [id number] [place] [address] May Type 2 diabetes mellitus with hyperglycemia E11.65 ; Essential hypertension I10 ; Moderately severe depression F32.2 and Confusion R41.0 [place] [address] [address] 13 May, 2017 [facility] [place] [address] [id number] [place] [address] May Cerebrovascular accident (CVA), unspecified mechanism I63.9 ; Essential hypertension I10 ; Hyperlipidemia, unspecified E78.5 and Type 2 diabetes mellitus with hyperglycemia E11.65 [place] [address] [address] May, [facility] [address] [facility] [id number] [place] [address] May, [facility] [place] [address] [id number] [place] [address] May [facility] [place] [address] [id number] [place] [address] May Diabetic neuropathy E11.40 and Diabetes E11.9 [facility] [place] [address] [id number] [place] [address] Apr [facility] [place] [address] [id number] [place] [address] Apr Subacute maxillary sinusitis J01.00 ; Hypoglycemia associated with type 2 diabetes mellitus E11.649 and Intractable episodic headache, unspecified headache type R51 [facility] [place] [address] [id number] [place] [address] Apr Diabetic neuropathy E11.40 and Anxiety F41.9 [facility] [place] [address] [id number] [place] [address] Apr [facility] [place] [address] [id number] [place] [address] Apr Type 2 diabetes mellitus with hyperglycemia E11.65 ; Subacute maxillary sinusitis J01.00 ; Diabetic neuropathy E11.40 and Sleep apnea in adult G47.30 [facility] [address] [facility] [id number] [place] [address] Apr, [facility] [place] [address] [id number] [place] [address] Apr [facility] [place] [address] [id number] [place] [address] Apr [facility] [place] [address] [id number] [place] [address] Apr Subacute maxillary sinusitis J01.00 [facility] [address] [facility] [id number] [place] [address] Apr, Right foot drop M21.371 [facility] [place] [address] [id number] [place] [address] Apr [facility] [place] [address] [id number] [place] [address] Mar [facility] [address] [id number] [place] [address] Mar Essential hypertension I10 ; Type 2 diabetes mellitus with hyperglycemia E11.65 ; Encounter for immunization Z23 ; Cocaine abuse F14.10 and Hyperlipidemia, unspecified E78.5 [facility] [place] [address] [id number] [place] [address] Mar [facility] [address], [place] [address] Mar, [facility] MAN [address] [id number] [place] [address] Feb [facility] [place] [address] [id number] [place] [address] Feb Type 2 diabetes mellitus with hyperglycemia E11.65 and Acute right ankle pain M25.571 [facility] [place] [address] [id number] [place] [address] Feb Weight loss R63.4 and Anxiety F41.9 [place] [address] [place] [address] Jan, [facility] [address] [place] [address] Jan, [facility] [id number] [place] [address] Jan, [facility] [address] [place] [address] Jan, Diabetes E11.9 [facility] [place] [address] [id number] [place] [address] Jan Sprain of right ankle, unspecified ligament, initial encounter S93.401A [facility] [place] [address] [id number] [place] [address] Jan Essential hypertension I10 ; Anxiety F41.9 and Type 2 diabetes mellitus with hyperglycemia E11.65 [facility] [address] [address] Jan, Diabetes E11.9 [facility] [address] [address] Jan, [facility] [address], [place] [address] Jan, [address] [id number] [place] [address] Jan [facility] [address] [place] [address] Jan, [facility] [address] [place] [address] Jan, [facility] [address] [place] [address] Jan, [facility] [address], [place] [address] Jan, [facility] [id number] [place] [address] Jan, Unintentional weight loss R63.4 ; Stage 2 chronic kidney disease N18.2 ; Exposure to hepatitis C Z20.5 ; Diabetic neuropathy E11.40 ; Obstructive sleep apnea syndrome G47.33 ; Essential hypertension I10 and Type 2 diabetes mellitus with hyperglycemia E11.65 [facility] [address] [address] Jan, [facility] [address] [address] Jan, Type 2 diabetes mellitus with hyperglycemia E11.65 ; Diabetic neuropathy E11.40 and Essential hypertension I10 [facility] [address] [address] Dec, Diabetes E11.9 [facility] [address] [place] [address] Dec, [facility] [address] [address] Dec, [facility] [address] [address] Dec, [facility] [address], [place] [address] Dec, Dental examination Z01.20 [facility] [address], [place] [address] Dec, [facility] [address] [place] [address] Dec, Diabetes E11.9 [place] [address], [place] [address] Dec, Stage 2 chronic kidney disease N18.2 ; Exposure to hepatitis C Z20.5 ; Obstructive sleep apnea syndrome G47.33 and Type 2 diabetes mellitus with hyperglycemia E11.65 [facility] [address] [id number] [address] Dec, [facility] MAN [address] [id number] [place] [address] Dec Diabetes E11.9 and Essential hypertension I10 [facility] [address], [place] [address] Nov, Diabetes E11.9 [facility] [address] [id number] [address] Nov, Right foot pain M79.671 [facility] [address] [id number] [id number] Nov, Right foot pain M79.671 [facility] MAN [address] [id number] [place] [address] Nov Diabetes E11.9 [facility] MAN [address] [id number] [place] [address] Nov Diabetes E11.9 [facility] [address] [id number] [place] [id number] 16 Nov, 2016 Dental examination Z01.20 [facility] [place] [address] [id number] [place] [address] Nov Diabetes E11.9 ; Cocaine abuse F14.10 and Shingles (herpes zoster) polyneuropathy B02.23 [facility] [place] [address] [id number] [place] [address] Nov [facility] [address] [facility] [id number] [place] [address] October, [facility] [place] [address] [id number] [place] [address] October [facility] [place] [address] [id number] [place] [address] October Unintentional weight loss R63.4 [facility] [place] [address] [id number] [place] [address] October Abscess L02.91 [facility] [place] [address] [id number] [place] [address] October Diabetes E11.9 ; Unintentional weight loss R63.4 ; History of hematuria Z87.448 and Cocaine abuse F14.10 [facility] [place] [address] [id number] [place] [address] October Diabetes E11.9 [facility] [place] [address] [id number] [place] [address] October Essential hypertension I10 and Abscess L02.91 [facility] [place] [address] [id number] [place] [address] Jun [facility] [place] [address] [id number] [place] [address] May Breast cancer screening Z12.39 ; Diabetes E11.9 and Anxiety F41.9 [facility] [place] [address] [id number] [place] [id number] May, Diabetes E11.9 [facility] [place] [address] [id number] [place] [address] 15 May Diabetes E11.9 and Anemia D64.9 [facility] [place] [address] [id number] [place] [address] 14 May Anxiety F41.9 [facility] [place] [address] [id number] [place] [address] 08 May [facility] [place] [address] [id number] [place] [address] May Dysuria R30.0 [facility] [place] [address] [id number] [place] [address] 06 May [facility] [place] [address] [id number] [place] [address] May Dysuria R30.0 and Vaginal itching L29.8 [place] [address] [address] Apr, [facility] [place] [address] [id number] [place] [address] Apr Diabetes E11.9 ; Dysuria R30.0 ; Diabetic neuropathy E11.40 ; Anemia D64.9 and Vaginal discharge N89.8 [place] [address] [address] Jun, [address] [id number] Jun, Anemia D64.9 ; Anxiety F41.9 ; Diabetes E11.9 and Diabetic neuropathy E11.40 [address] [id number] May, [facility] [id number] [place] [address] Apr, [address]005[address] [id number] Apr, Anemia D64.9 ; Anxiety F41.9 ; Diabetes E11.9 and Diabetic neuropathy E11.40 [address] [id number] Mar, Acute costochondritis M94.0 [place] [address] [place] [id number] Mar, Bilateral low back pain without sciatica M54.5 and Bereavement Z63.4 [place] [address] [place] [id number] Mar, Obstructive chronic bronchitis with acute exacerbation J44.1 ; Herpes zoster without complication B02.9 and [place] N91.2 [address] [place] [address] [place] [id number] Mar, [place] [address] [place] [id number] Mar, [place] [address] [place] [id number] Feb, History of recent traumatic injury of head V15.52 ; Diabetes type 2, uncontrolled 250.02 and Visual disturbance 368.[address] [place] [id number] Feb, History of recent traumatic injury of head V15.52 ; Visual disturbance 368.9 and Diabetes type 2, uncontrolled 250.02 IMMUNIZATIONS No Known Immunizations SOCIAL HISTORY Never Assessed REASON FOR VISIT Transition of Care, go over her diabetes and sleep apnea- Jose LEE PLAN OF CARE Activity Details Follow Up 6 Weeks Reason: VITAL SIGNS Height 63.50 in 2016-12-25 Weight 130.0 lbs 2016-12-25 Temperature 97.8 degrees Fahrenheit 2016-12-25 Heart Rate 88 bpm 2016-12-25 Respiratory Rate 20 2016-12-25 BMI 22.66 kg/m2 2016-12-25 Blood pressure systolic 172 mmHg 2016-12-25 Blood pressure diastolic 88 mmHg 2016-12-25 MEDICATIONS Medication Instructions Dosage Frequency Start Date End Date Duration Status MetFORMIN HCl ER 500 mg Orally 2 times a day 2 tablet 12h Active Pen [place] 31G X 6 MM as directed 24h Apr, 30 days Active Glucocard Expression Test 1 glucometer as directed Nov, Active Glucocard Expression Test - subcutaneously 2 times a day as directed 12h Nov, 30 days Active Simvastatin 40 MG Orally Once a day 1 tablet in the evening 24h Active Multi Complete Active Lisinopril 10 mg Orally Once a day 1 tablet 24h 30 days Active Ropinirole HCl 1 MG 1 tablet 1 to 3 hours before bedtime 30 days Active Lantus 100 unit/ml Subcutaneous Once a day at night 15 units Active Levemir FlexTouch 100 UNIT/ML Subcutaneous Once a day 15 units 24h Nov, 30 days Active RESULTS No Results PROCEDURES Procedure Date Ordered Result Body Site BASIC METABOLIC PANEL December 25, 2016 HEP C AB W/REFLEX (ALLIANCE ONLY) December 25, 2016 VENIPUNCT, ROUTINE* December 25, 2016 MICROALBUMIN, SEMIQUANT December 25, 2016 MICROALBUMIN, QUANTITATIVE December 25, 2016 ASSAY OF URINE CREATININE December 25, 2016 INSTRUCTIONS MEDICATIONS ADMINISTERED No Known Medications [...] infection 2005 Hospitalization History in rehab at [facility] 2017 Hospitalization History Stroke 05/2017 Hospitalization History surgeries Hospitalization History Elevated B/S 07/2017
--- NOTE | 2018-05-13 10:59 | Ophthalmology Operative Report ---
Cataract removal/placement IOL PREOPERATIVE DIAGNOSIS: 1. Mature Cataract Right Eye 2. Stain the anterior capsule with Vision Blue. POSTOPERATIVE DIAGNOSIS: 1. Mature Cataract Right Eye 2. Stain the anterior capsule with Vision Blue. PROCEDURE: 1. Cataract removal and placement of posterior chamber implant , right eye. 2. Stain the anterior capsule with Vision Blue. SURGEON: Jono Armstrong ANESTHESIA: Topical with sedation COMPLICATIONS: None ESTIMATED BLOOD LOSS: Minimal DESCRIPTION OF PROCEDURE: After proper informed consent was obtained, the patient was taken to the Operating Room and the right eye was anesthetized with tetracaine. The right eye was then prepped and draped in the usual manner. A wire lid speculum was placed. A paracentesis was made at the left hand position. Preservative free lidocaine was injected into anterior chamber followed by viscoelastic. A clear corneal incision was made in the temporal position. A capsulorrhexis was performed and the central nuclear and cortical material were removed. Vision blue was used to visualize capsule. The posterior capsule was polished and Julio 24.5 [id number] IOL was placed into the capsular bag. The residual viscoelastic was aspirated and balanced saline solution was injected into the anterior chamber. Moxifloxacin was injected into the anterior chamber. The wound was checked and found to be water tight. The patient tolerated the procedure well without complications. JONO ARMSTRONG MD May 13, 2018 10:59
--- OUTSIDE RECORDS SUMMARY | 2018-05-13 10:59 | XMS REPORT ---
Author Author CHRIS BECKWITH [facility] Address [address] [place] [address] Care Team Providers Care Conservation Engineer Name Role Phone CHRIS BECKWITH Unavailable PROBLEMS Type Condition ICD9-CM Code SBA77-UI Code Onset Dates Condition Status SNOMED Code Problem Type 2 diabetes mellitus with hyperglycemia E11.65 Active 334372600460873 Problem Sleep apnea in adult G47.30 Active 94153927 Problem Hyperlipidemia, unspecified E78.5 Active 47835133 Problem Abnormal mammogram of right breast R92.8 Active 584258186 Problem Breast asymmetry N64.89 Active 982053516 Problem Moderately severe depression F32.2 Active 192303777 Problem Hypoglycemia associated with type 2 diabetes mellitus E11.649 Active 551475063 Problem Hypoglycemia E16.2 Active 847850278 Problem Cerebrovascular accident (CVA), unspecified mechanism I63.9 Active 440298800 Problem Essential hypertension I10 Active 05536419 Problem Cocaine abuse F14.10 Active 41957838 Problem Diabetic neuropathy E11.40 Active 388079765 Problem Stage 2 chronic kidney disease N18.2 Active 719613232 Problem Anxiety F41.9 Active 90726020 Problem Obstructive sleep apnea syndrome G47.33 Active 36001626 ALLERGIES Substance Reaction Event Type Date Status Phenergan nausea Drug Allergy Feb, Active Penicillin V Potassium nausea Drug Allergy Feb, Active Codeine Sulfate itch Drug Allergy Feb, Active ENCOUNTERS Encounter Location Date Diagnosis [facility] [address] [id number] [place] [address] Sep [facility] [address] [id number] [place] [address] Sep Breast asymmetry N64.89 [facility] [place] [address] [id number] [place] [address] Sep [facility] [address] [id number] [place] [address] Sep Type 2 diabetes mellitus with hyperglycemia E11.65 ; Cocaine abuse F14.10 and Open wound of right great toe, subsequent encounter S91.101D [facility] [place] [address] [id number] [place] [address] Sep [facility] [place] [address] [id number] [place] [address] Aug [facility] [place] [address] [id number] [place] [address] Aug [facility] [place] [address] [id number] [place] [address] Aug Type 2 diabetes mellitus with hyperglycemia E11.65 [facility] [place] [address] [id number] [place] [address] Aug [facility] [address] [facility] [id number] [place] [address] Aug, [facility] [place] [address] [id number] [place] [address] Jul [facility] [place] [address] [id number] [place] [address] Jul Diabetic neuropathy E11.40 ; Essential hypertension I10 and Type 2 diabetes mellitus with hyperglycemia E11.65 [facility] [place] [address] [id number] [place] [address] Jul [facility] [place] [address] [id number] [place] [address] Jul [facility] [place] [address] [id number] [place] [address] Jul [facility] [place] [address] [id number] [place] [address] Jul [facility] [place] [address] [id number] [place] [address] Jul [facility] [place] [address] [id number] [place] [address] Jul Type 2 diabetes mellitus with hyperglycemia E11.65 ; Open wound of right great toe, subsequent encounter S91.101D ; Essential hypertension I10 and Diabetic neuropathy E11.40 [facility] [id number] [place] [id number] 05 Jul, 2017 [facility] [place] [address] [id number] [place] [address] Jun [facility] [place] [address] [id number] [place] [address] Jun Type 2 diabetes mellitus with hyperglycemia E11.65 [facility] [place] [address] [id number] [place] [address] Jun [facility] [place] [address] [id number] [place] [address] Jun [facility] [place] [address] [id number] [place] [address] Jun Abnormal mammogram of right breast R92.8 and Breast asymmetry N64.89 [facility] [place] [address] [id number] [place] [address] Jun [facility] [place] [address] [id number] [place] [address] Jun [facility] [place] [address] [id number] [place] [address] May Hypoglycemia E16.2 [facility] [place] [address] [id number] [place] [address] May Abnormal neurological exam R29.90 [facility] [place] [address] [id number] [place] [address] May [facility] [place] [address] [id number] [place] [address] May Type 2 diabetes mellitus with hyperglycemia E11.65 [facility] [place] [address] [id number] [place] [address] May Breast cancer screening Z12.31 and Hematuria, unspecified type R31.9 [facility] [place] [address] [id number] [place] [address] May [facility] [place] [address] [id number] [place] [address] May Type 2 diabetes mellitus with hyperglycemia E11.65 ; Essential hypertension I10 ; Moderately severe depression F32.2 and Confusion R41.0 [facility] [address] [id number] [address] May, [facility] [place] [address] [id number] [place] [address] May Cerebrovascular accident (CVA), unspecified mechanism I63.9 ; Essential hypertension I10 ; Hyperlipidemia, unspecified E78.5 and Type 2 diabetes mellitus with hyperglycemia E11.65 [place] [address] [address] May, [place] [address] [id number] [address] May, [facility] [place] [address] [id number] [place] [address] May [facility] [place] [address] [id number] [place] [address] May Diabetic neuropathy E11.40 and Diabetes E11.9 [facility] [place] [address] [id number] [place] [address] Apr [facility] [address] [id number] [place] [address] Apr Subacute maxillary sinusitis J01.00 ; Hypoglycemia associated with type 2 diabetes mellitus E11.649 and Intractable episodic headache, unspecified headache type R51 [facility] [place] [address] [id number] [place] [address] Apr Diabetic neuropathy E11.40 and Anxiety F41.9 [facility] [place] [address] [id number] [place] [address] Apr [facility] [address] [id number] [place] [address] Apr Type 2 diabetes mellitus with hyperglycemia E11.65 ; Subacute maxillary sinusitis J01.00 ; Diabetic neuropathy E11.40 and Sleep apnea in adult G47.30 [facility] [place] [address] [id number] [place] [address] Apr, [facility] [place] [address] [id number] [place] [address] Apr [facility] [place] [address] [id number] [place] [address] Apr [facility] [place] [address] [id number] [place] [address] Apr Subacute maxillary sinusitis J01.00 [place] [address] [id number], [place] [address] Apr, Right foot drop M21.371 [facility] [place] [address] [id number] [place] [address] Apr [facility] [place] [address] [id number] [place] [address] Mar [facility] [place] [address] [id number] [place] [address] Mar Essential hypertension I10 ; Type 2 diabetes mellitus with hyperglycemia E11.65 ; Encounter for immunization Z23 ; Cocaine abuse F14.10 and Hyperlipidemia, unspecified E78.5 [facility] [place] [address] [id number] [place] [address] Mar [place] [address] [id number] [address] Mar, [facility] [place] [address] [id number] [place] [address] Feb [facility] [place] [address] [id number] [place] [address] Feb Type 2 diabetes mellitus with hyperglycemia E11.65 and Acute right ankle pain M25.571 [facility] [place] [address] [id number] [place] [address] Feb Weight loss R63.4 and Anxiety F41.9 [place] [address] [facility] [id number] [place] [address] Jan, [facility] [place] [address], [place] [address] Jan, [facility] [place] [address], [place] [address] Jan, [facility] [place] [address], [place] [address] Jan, Diabetes E11.9 [facility] [address] [id number] [place] [address] Jan Sprain of right ankle, unspecified ligament, initial encounter S93.401A [facility] [address] [id number] [place] [address] Jan Essential hypertension I10 ; Anxiety F41.9 and Type 2 diabetes mellitus with hyperglycemia E11.65 [facility] [place] [address], [place] [address] Jan, Diabetes E11.9 [facility] [place] [address], [place] [address] Jan, [facility] [place] [address], [place] [address] Jan, [facility] [place] [address] [id number] [place] [address] Jan [facility] [place] [address], [place] [address] Jan, [facility] [place] [address], [place] [address] Jan, [facility] [place] [address], [place] [address] Jan, [facility] [place] [address], [place] [address] Jan, [facility] [place] [address], [place] [address] Jan, Unintentional weight loss R63.4 ; Stage 2 chronic kidney disease N18.2 ; Exposure to hepatitis C Z20.5 ; Diabetic neuropathy E11.40 ; Obstructive sleep apnea syndrome G47.33 ; Essential hypertension I10 and Type 2 diabetes mellitus with hyperglycemia E11.65 [facility] [place] [address], [place] [address] Jan, [facility] [place] [id number] [place] [address] Jan, Type 2 diabetes mellitus with hyperglycemia E11.65 ; Diabetic neuropathy E11.40 and Essential hypertension I10 [facility] [place] [address] [place] [address] Dec, Diabetes E11.9 [facility] [place] [id number] [place] [address] Dec, [facility] [place] [id number] [place] [address] Dec, [facility] [place] [address] [place] [address] Dec, [facility] [place] [address] [place] [address] Dec, Dental examination Z01.20 [facility] [place] [address], [place] [address] Dec, [facility] [place] [address] [place] [address] Dec, Diabetes E11.9 [facility] [place] [address], [place] [address] Dec, Stage 2 chronic kidney disease N18.2 ; Exposure to hepatitis C Z20.5 ; Obstructive sleep apnea syndrome G47.33 and Type 2 diabetes mellitus with hyperglycemia E11.65 [facility] [place] [address], [place] [address] Dec, [place] [address] [facility] [id number] [place] [address] Dec Diabetes E11.9 and Essential hypertension I10 [facility] [place] [address] [facility] [id number] [place] [address] Nov, Diabetes E11.9 [facility] [place] [address] [id number] [address] Nov, Right foot pain M79.671 [facility] [address] [id number] [address] Nov, Right foot pain M79.671 [facility] [place] [address] [id number] [place] [address] Nov Diabetes E11.9 [facility] [place] [address] [id number] [place] [address] Nov Diabetes E11.9 [facility] [address] [id number] [address] Nov, Dental examination Z01.20 [facility] [address] [id number] [place] [address] Nov Diabetes E11.9 ; Cocaine abuse F14.10 and Shingles (herpes zoster) polyneuropathy B02.23 [facility] [place] [address] [id number] [place] [address] Nov [facility] [place] [address] [facility] [id number] [place] [address] October, [facility] [place] [address] [id number] [place] [address] October [facility] [place] [address] [id number] [place] [address] October Unintentional weight loss R63.4 [facility] [place] [address] [id number] [place] [address] October Abscess L02.91 [facility] [place] [address] [id number] [place] [address] October Diabetes E11.9 ; Unintentional weight loss R63.4 ; History of hematuria Z87.448 and Cocaine abuse F14.10 [facility] [place] [address] [id number] [place] [address] October Diabetes E11.9 [facility] [place] [address] [id number] [place] [address] October Essential hypertension I10 and Abscess L02.91 [facility] [place] [address] [id number] [place] [address] Jun [facility] [place] [address] [id number] [place] [address] May Breast cancer screening Z12.39 ; Diabetes E11.9 and Anxiety F41.9 [facility] [place] [address] [facility] [id number] [place] [id number] 16 May, 2016 Diabetes E11.9 [facility] [place] [address] [id number] [place] [address] 15 May Diabetes E11.9 and Anemia D64.9 [facility] [place] [address] [id number] [place] [address] 14 May Anxiety F41.9 [facility] [place] [address] [id number] [place] [address] 08 May [facility] [place] [address] [id number] [place] [address] May Dysuria R30.0 [facility] [place] [address] [id number] [place] [address] 06 May [facility] [place] [address] [id number] [place] [address] 05 May Dysuria R30.0 and Vaginal itching L29.8 [facility] [place] [address] [facility] [id number] [place] [address] Apr, [facility] [place] [address] [id number] [place] [address] 14 Apr Diabetes E11.9 ; Dysuria R30.0 ; Diabetic neuropathy E11.40 ; Anemia D64.9 and Vaginal discharge N89.8 [facility] [place] [address] [facility] [id number] [place] [address] Jun, [address] [id number] Jun, Anemia D64.9 ; Anxiety F41.9 ; Diabetes E11.9 and Diabetic neuropathy E11.40 [address] [address] May, [facility] [place] [id number] [place] [address] Apr, [place] [id number] [place] [id number] Apr, Anemia D64.9 ; Anxiety F41.9 ; Diabetes E11.9 and Diabetic neuropathy E11.40 [address] [place] [id number] [place] [id number] Mar, Acute costochondritis M94.0 [place] [id number] [place] [id number] Mar, Bilateral low back pain without sciatica M54.5 and Bereavement Z63.4 [address] [place] [id number] [place] [id number] Mar, Obstructive chronic bronchitis with acute exacerbation J44.1 ; Herpes zoster without complication B02.9 and [place] N91.2 [address] [place] [id number] [place] [id number] Mar, [place] [id number] [place] [id number] Mar, [place] [id number] [place] [id number] Feb, History of recent traumatic injury of head V15.52 ; Diabetes type 2, uncontrolled 250.02 and Visual disturbance 368.9 [address] [place] [id number] [place] [id number] Feb, History of recent traumatic injury of head V15.52 ; Visual disturbance 368.9 and Diabetes type 2, uncontrolled 250.02 IMMUNIZATIONS No Known Immunizations SOCIAL HISTORY Never Assessed REASON FOR VISIT Diabetes follow-up. ROSA Garcia PLAN OF CARE Activity Details Follow Up 4 Weeks Reason:dm mgmt VITAL SIGNS Height 63.50 in 2017-02-18 Weight 117.2 lbs 2017-02-18 Temperature 98.2 degrees Fahrenheit 2017-02-18 Heart Rate 92 bpm 2017-02-18 Respiratory Rate 18 2017-02-18 BMI 20.43 kg/m2 2017-02-18 Blood pressure systolic 124 mmHg 2017-02-18 Blood pressure diastolic 78 mmHg 2017-02-18 MEDICATIONS Medication Instructions Dosage Frequency Start Date End Date Duration Status NovoLog Flexpen 100 UNIT/ML Subcutaneous 3 times a day 3 units 8h Jan, Active Tresiba FlexTouch 100 UNIT/ML Subcutaneous at bedtime Inject 10 units Jan, Active Ropinirole HCl 1 MG Orally at bedtime 1 tablet 1 to 3 hours before bedtime 30 days Active Neurontin 300 MG Orally Once a day 1 capsule 24h Jan, 30 day(s ) Active Glucocard Expression Test - as directed Nov, Active Lisinopril 20 MG Orally Once a day 1 tablet 24h Jan, 30 day(s) Active MetFORMIN HCl ER 500 mg Orally 2 times a day 2 tablet 12h 30 days Active Multi Complete Active HydrOXYzine HCl 25 MG Orally 2 times a day as needed for anxieyt 1 tablet as needed Feb, 30 day(s) Active Simvastatin 40 mg Orally Once a day 1 tablet in the evening 24h 30 days Active Glucocard Expression Test - subcutaneously 2 times a day as directed Nov, 30 days Active Pen [place] 31G X 6 MM as directed 24h Apr, 30 days Active RESULTS No Results PROCEDURES [...] infection 2004 Hospitalization History in rehab at [facility] 2016 Hospitalization History Stroke 05/2017 Hospitalization History surgeries Hospitalization History Elevated B/S 07/2017
--- OUTSIDE RECORDS SUMMARY | 2018-05-13 10:59 | XMS REPORT ---
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 Name Role Phone CHRIS BECKWITH Unavailable PROBLEMS Type Condition ICD9-CM Code BJF40-NN Code Onset Dates Condition Status SNOMED Code Problem Sleep apnea in adult G47.30 Active 74321720 Problem Moderately severe depression F32.2 Active 360073529 Problem Hypoglycemia associated with type 2 diabetes mellitus E11.649 Active 167687347 Problem PVD (peripheral vascular disease) I73.9 Active 229230910 Problem PAD (peripheral artery disease) I73.9 Active 641690106 Problem Hypoglycemia E16.2 Active 897907029 Problem Cerebrovascular accident (CVA), unspecified mechanism I63.9 Active 320093939 Problem Breast asymmetry N64.89 Active 297505170 Problem Abnormal mammogram of right breast R92.8 Active 342241941 Problem Diabetic neuropathy E11.40 Active 156095059 Problem Anxiety F41.9 Active 34711684 Problem Obstructive sleep apnea syndrome G47.33 Active 65734818 Problem Stage 2 chronic kidney disease N18.2 Active 106113654 Problem Essential hypertension I10 Active 59988974 Problem Type 2 diabetes mellitus with hyperglycemia E11.65 Active 220886009571695 Problem Cocaine abuse F14.10 Active 03686387 Problem Hyperlipidemia, unspecified E78.5 Active 42075340 ALLERGIES No Information ENCOUNTERS Encounter Location Date Diagnosis [facility] [address] [id number] [place] [address] [facility] [address] [id number] [place] [address] [facility] [address] [id number] [place] [address] Nov PVD (peripheral vascular disease) I73.9 ; Type 2 diabetes mellitus with hyperglycemia E11.65 and PAD (peripheral artery disease) I73.9 [facility] [place] [address] [id number] [place] [address] Nov [facility] [place] [address] [id number] [place] [address] Nov [facility] [place] [address] [id number] [place] [address] Nov [facility] [place] [address] [id number] [place] [address] October [facility] [place] [address] [id number] [place] [address] October [facility] [place] [address] [id number] [place] [address] October Type 2 diabetes mellitus with hyperglycemia E11.65 and Surgical procedure on lower extremity within past 6 months Z98.890 [facility] [place] [address] [id number] [place] [address] October [facility] [place] [address] [id number] [place] [address] October [facility] [address] [facility] [id number] [place] [address] October, [facility] [place] [address] [id number] [place] [address] October Sleep apnea in adult G47.30 [facility] [place] [address] [id number] [place] [address] October Type 2 diabetes mellitus with hyperglycemia E11.65 [facility] [place] [address] [id number] [place] [address] Sep [facility] [place] [address] [id number] [place] [address] Sep Breast asymmetry N64.89 [facility] [place] [address] [id number] [place] [address] Sep [facility] [place] [address] [id number] [place] [address] Sep Type 2 diabetes mellitus with hyperglycemia E11.65 ; Cocaine abuse F14.10 and Open wound of right great toe, subsequent encounter S91.101D [facility] [place] [address] [id number] [place] [address] Sep [facility] [place] [address] [id number] [place] [address] Aug [facility] [place] [address] [id number] [place] [address] Aug [facility] [place] [address] [id number] [place] [address] Aug Type 2 diabetes mellitus with hyperglycemia E11.65 [facility] [place] [address] [id number] [place] [address] Aug [facility] [address] [facility] [id number] [place] [address] Aug, [facility] [place] [address] [id number] [place] [address] Jul [facility] [place] [address] [id number] [place] [address] Jul Diabetic neuropathy E11.40 ; Essential hypertension I10 and Type 2 diabetes mellitus with hyperglycemia E11.65 [facility] [place] [address] [id number] [place] [address] Jul [facility] [place] [address] [id number] [place] [address] Jul [facility] [place] [address] [id number] [place] [address] Jul [facility] [place] [address] [id number] [place] [address] Jul [facility] [place] [address] [id number] [place] [address] Jul [facility] [place] [address] [id number] [place] [address] Jul Type 2 diabetes mellitus with hyperglycemia E11.65 ; Open wound of right great toe, subsequent encounter S91.101D ; Essential hypertension I10 and Diabetic neuropathy E11.40 [facility] [id number] [place] [id number] Jul, [facility] [place] [address] [id number] [place] [address] Jun [facility] [place] [address] [id number] [place] [address] Jun Type 2 diabetes mellitus with hyperglycemia E11.65 [facility] [place] [address] [id number] [place] [address] Jun [facility] [place] [address] [id number] [place] [address] Jun [facility] [place] [address] [id number] [place] [address] 17 Jun Abnormal mammogram of right breast R92.8 and Breast asymmetry N64.89 [facility] [place] [address] [id number] [place] [address] 15 Jun [facility] [place] [address] [id number] [place] [address] Jun [facility] [place] [address] [id number] [place] [address] May Hypoglycemia E16.2 [facility] [place] [address] [id number] [place] [address] May Abnormal neurological exam R29.90 [facility] [place] [address] [id number] [place] [address] May [facility] [place] [address] [id number] [place] [address] May Type 2 diabetes mellitus with hyperglycemia E11.65 [facility] [place] [address] [id number] [place] [address] May Breast cancer screening Z12.31 and Hematuria, unspecified type R31.9 [facility] [place] [address] [id number] [place] [address] May [facility] [place] [address] [id number] [place] [address] May Type 2 diabetes mellitus with hyperglycemia E11.65 ; Essential hypertension I10 ; Moderately severe depression F32.2 and Confusion R41.0 [place] [address] [address] [address], [address] [facility] [place] [address] [id number] [place] [address] May Cerebrovascular accident (CVA), unspecified mechanism I63.9 ; Essential hypertension I10 ; Hyperlipidemia, unspecified E78.5 and Type 2 diabetes mellitus with hyperglycemia E11.65 [place] [address], [place] [address] May, [place] [address], [place] [address] May, [facility] [address] [id number] [place] [address] [facility] [place] [address] [id number] [place] [address] May Diabetic neuropathy E11.40 and Diabetes E11.9 [facility] [place] [address] [id number] [place] [address] [facility] [place] [address] [id number] [place] [address] Apr Subacute maxillary sinusitis J01.00 ; Hypoglycemia associated with type 2 diabetes mellitus E11.649 and Intractable episodic headache, unspecified headache type R[address] [facility] [place] [address] [id number] [place] [address] Apr Diabetic neuropathy E11.40 and Anxiety F41.[address] [facility] [place] [address] [id number] [place] [address] Apr [facility] [place] [address] [id number] [place] [address] Apr Type 2 diabetes mellitus with hyperglycemia E11.65 ; Subacute maxillary sinusitis J01.00 ; Diabetic neuropathy E11.40 and Sleep apnea in adult G47.30 [place] [address] [place] [id number] [address] [address], [address] [facility] [place] [address] [id number] [place] [address] Apr [facility] [place] [address] [id number] [place] [address] [facility] [place] [address] [id number] [place] [address] Apr Subacute maxillary sinusitis J01.00 [place] [address] [place] [id number] [address] Apr, Right foot drop M21.[address] [facility] [place] [address] [id number] [place] [address] [facility] [place] [address] [id number] [place] [address] [facility] [place] [address] [id number] [place] [address] Mar Essential hypertension I10 ; Type 2 diabetes mellitus with hyperglycemia E11.65 ; Encounter for immunization Z23 ; Cocaine abuse F14.10 and Hyperlipidemia, unspecified E78.5 [facility] [place] [address] [id number] [place] [address] Mar [place] [address] [address] [address], [address] [facility] [place] [address] [id number] [place] [address] [facility] [place] [address] [id number] [place] [address] Feb Type 2 diabetes mellitus with hyperglycemia E11.65 and Acute right ankle pain M25.[address] [facility] [place] [address] [id number] [place] [address] Feb Weight loss R63.4 and Anxiety F41.9 [place] [address], [place] [address] Jan, [place] [address] [place] [id number] [place] [address] Jan, [facility] [address], [place] [address] Jan, [facility] [address], [place] [address] Jan, Diabetes E11.9 [facility] [place] [address] [id number] [place] [address] Jan Sprain of right ankle, unspecified ligament, initial encounter S93.401A [facility] [place] [address] [id number] [place] [address] Jan Essential hypertension I10 ; Anxiety F41.9 and Type 2 diabetes mellitus with hyperglycemia E11.65 [facility] [address] [place] [address] Jan, Diabetes E11.9 [facility] [address] [place] [address] Jan, [facility] [address], [place] [address] Jan, [facility] MAN [address] [id number] [place] [address] Jan [facility] [address], [place] [address] Jan, [facility] [address], [place] [address] Jan, [facility] [address], [place] [address] Jan, [facility] [address] [place] [address] Jan, [facility] [address], [place] [address] Jan, Unintentional weight loss R63.4 ; Stage 2 chronic kidney disease N18.2 ; Exposure to hepatitis C Z20.5 ; Diabetic neuropathy E11.40 ; Obstructive sleep apnea syndrome G47.33 ; Essential hypertension I10 and Type 2 diabetes mellitus with hyperglycemia E11.65 [facility] [address], [place] [address] Jan, [facility] [address] [place] [address] Jan, Type 2 diabetes mellitus with hyperglycemia E11.65 ; Diabetic neuropathy E11.40 and Essential hypertension I10 [facility] [address] [place] [address] Dec, Diabetes E11.9 [facility] [address] [place] [id number] [place] [address] Dec, [facility] [address] [place] [id number] [place] [address] Dec, [place] [address] [place] [id number] [place] [address] Dec, [facility] [address] [place] [address] Dec, Dental examination Z01.20 [facility] [address] [place] [address] Dec, [facility] [address] [place] [address] Dec, Diabetes E11.9 [facility] [address] [address] Dec, Stage 2 chronic kidney disease N18.2 ; Exposure to hepatitis C Z20.5 ; Obstructive sleep apnea syndrome G47.33 and Type 2 diabetes mellitus with hyperglycemia E11.65 [facility] [address], [place] [address] Dec, [facility] [place] [address] [id number] [place] [address] Dec Diabetes E11.9 and Essential hypertension I10 [facility] [address] [place] [address], [place] [address] Nov, Diabetes E11.[address] [facility] [address] [facility] [id number] [place] [address] Nov, Right foot pain M79.671 [facility] [place] [address] [facility] [id number] [place] [address] Nov, Right foot pain M79.[address] [facility] [place] [address] [id number] [place] [address] Nov Diabetes E11.9 [facility] [place] [address] [id number] [place] [address] [address] [facility] [address] [facility] [id number] [place] [address] Nov, Dental examination Z01.20 [facility] [place] [address] [id number] [place] [address] Nov Diabetes E11.9 ; Cocaine abuse F14.10 and Shingles (herpes zoster) polyneuropathy B02.23 [facility] [place] [address] [id number] [place] [address] [facility] [address] [facility] [id number] [place] [address] October, [facility] [place] [address] [id number] [place] [address] October [facility] [place] [address] [id number] [place] [address] October Unintentional weight loss R63.4 [facility] [place] [address] [id number] [place] [address] October Abscess L02.91 [facility] [place] [address] [id number] [place] [address] October Diabetes E11.9 ; Unintentional weight loss R63.4 ; History of hematuria Z87.448 and Cocaine abuse F14.10 [facility] [place] [address] [id number] [place] [address] October Diabetes E11.9 [facility] [place] [address] [id number] [place] [address] October Essential hypertension I10 and Abscess L02.91 [facility] [place] [address] [id number] [place] [address] Jun [facility] [place] [address] [id number] [place] [address] May Breast cancer screening Z12.39 ; Diabetes E11.9 and Anxiety F41.9 [facility] [place] [address] [facility] [id number] [place] [address] May, Diabetes E11.9 [facility] [place] [address] [id number] [place] [address] 15 May Diabetes E11.9 and Anemia D64.9 [facility] [place] [address] [id number] [place] [address] 14 May Anxiety F41.9 [facility] [place] [address] [id number] [place] [address] 08 May [facility] [place] [address] [id number] [place] [address] May Dysuria R30.0 [facility] [place] [address] [id number] [place] [address] 06 May [facility] [place] [address] [id number] [place] [address] 05 May Dysuria R30.0 and Vaginal itching L29.8 [facility] [address] [place] [id number] [address] Apr, [facility] [place] [address] [id number] [place] [address] 14 Apr Diabetes E11.9 ; Dysuria R30.0 ; Diabetic neuropathy E11.40 ; Anemia D64.9 and Vaginal discharge N89.8 [facility] [address] [facility] [id number] [address] Jun, [place] [address] [place] [id number] [place] [id number] Jun, Anemia D64.9 ; Anxiety F41.9 ; Diabetes E11.9 and Diabetic neuropathy E11.40 [address] [id number] May, [facility] [address] [place] [id number] [address] Apr, [place] [id number] [place] [id number] Apr, Anemia D64.9 ; Anxiety F41.9 ; Diabetes E11.9 and Diabetic neuropathy E11.40 [place] [id number] [place] [id number] Mar, Acute costochondritis M94.0 [place] [id number] [place] [id number] Mar, Bilateral low back pain without sciatica M54.5 and Bereavement Z63.4 [place] [id number] [place] [id number] Mar, Obstructive chronic bronchitis with acute exacerbation J44.1 ; Herpes zoster without complication B02.9 and [place] N91.[address] [id number] Mar, [place] [address] [id number] Mar, [place] [address] [id number] Feb, History of recent traumatic injury of head V15.52 ; Diabetes type 2, uncontrolled 250.02 and Visual disturbance 368.[address] [id number] Feb, History of recent traumatic injury of head V15.52 ; Visual disturbance 368.9 and Diabetes type 2, uncontrolled 250.02 IMMUNIZATIONS No Known Immunizations SOCIAL HISTORY Never Assessed REASON FOR VISIT phone call PLAN OF CARE VITAL SIGNS MEDICATIONS [...] infection 2005 Hospitalization History in rehab at [facility] 2016 Hospitalization History Stroke 05/2017 Hospitalization History surgeries Hospitalization History Elevated B/S 07/2017 Hospitalization History [facility] - blood clot LRE 10/2017 Hospitalization History [facility] - R ankle clot 11/2017
[2018-05-13] MEDS ORDERED: acetaZOLAMIDE ER 500 MG CAP (DIAMOX SEQUELS) PO ONE (11:00)
--- OUTSIDE RECORDS SUMMARY | 2018-05-13 11:00 | XMS REPORT ---
Author [facility] [address] [place] [address] Care Team Providers Care Photonic Laboratory Technician Name Role Phone SAFIA LANE Unavailable PROBLEMS Type Condition ICD9-CM Code CJC77-DY Code Onset Dates Condition Status SNOMED Code Problem Type 2 diabetes mellitus with hyperglycemia E11.65 Active 409250842267915 Problem Sleep apnea in adult G47.30 Active 33190779 Problem Hyperlipidemia, unspecified E78.5 Active 74877338 Problem Abnormal mammogram of right breast R92.8 Active 131919829 Problem Breast asymmetry N64.89 Active 862881051 Problem Moderately severe depression F32.2 Active 490943525 Problem Hypoglycemia associated with type 2 diabetes mellitus E11.649 Active 148342842 Problem Hypoglycemia E16.2 Active 230497453 Problem Cerebrovascular accident (CVA), unspecified mechanism I63.9 Active 989315861 Problem Essential hypertension I10 Active 44952530 Problem Cocaine abuse F14.10 Active 97745005 Problem Diabetic neuropathy E11.40 Active 330842210 Problem Stage 2 chronic kidney disease N18.2 Active 406992954 Problem Anxiety F41.9 Active 42384055 Problem Obstructive sleep apnea syndrome G47.33 Active 38706732 ALLERGIES Substance Reaction Event Type Date Status Phenergan nausea Drug Allergy Apr, Active Penicillin V Potassium nausea Drug Allergy Apr, Active Codeine Sulfate itch Drug Allergy Apr, Active ENCOUNTERS Encounter Location Date Diagnosis [facility] [address] [id number] [place] [address] October Type 2 diabetes mellitus with hyperglycemia E11.65 and Surgical procedure on lower extremity within past 6 months Z98.890 [facility] [address] [id number] [place] [address] October [facility] [address] [id number] [place] [address] October [facility] [address] [facility] [id number] [place] [address] October, [facility] [place] [address] [id number] [place] [address] October Sleep apnea in adult G47.30 [facility] [place] [address] [id number] [place] [address] October Type 2 diabetes mellitus with hyperglycemia E11.65 [facility] [place] [address] [id number] [place] [address] Sep [facility] [place] [address] [id number] [place] [address] Sep Breast asymmetry N64.89 [facility] [place] [address] [id number] [place] [address] Sep [facility] [place] [address] [id number] [place] [address] Sep Type 2 diabetes mellitus with hyperglycemia E11.65 ; Cocaine abuse F14.10 and Open wound of right great toe, subsequent encounter S91.101D [facility] [place] [address] [id number] [place] [address] Sep [facility] [place] [address] [id number] [place] [address] Aug [facility] [place] [address] [id number] [place] [address] Aug [facility] [place] [address] [id number] [place] [address] Aug Type 2 diabetes mellitus with hyperglycemia E11.65 [facility] [place] [address] [id number] [place] [address] Aug [facility] [address] [facility] [id number] [place] [address] Aug, [facility] [place] [address] [id number] [place] [address] Jul [facility] [place] [address] [id number] [place] [address] Jul Diabetic neuropathy E11.40 ; Essential hypertension I10 and Type 2 diabetes mellitus with hyperglycemia E11.65 [facility] [place] [address] [id number] [place] [address] Jul [facility] [place] [address] [id number] [place] [address] Jul [facility] [place] [address] [id number] [place] [address] Jul [facility] [place] [address] [id number] [place] [address] Jul [facility] [place] [address] [id number] [place] [address] Jul [facility] [place] [address] [id number] [place] [address] Jul Type 2 diabetes mellitus with hyperglycemia E11.65 ; Open wound of right great toe, subsequent encounter S91.101D ; Essential hypertension I10 and Diabetic neuropathy E11.[address] [facility] [address] [id number] [place] [id number] Jul, [facility] [place] [address] [id number] [place] [address] Jun [facility] [place] [address] [id number] [place] [address] Jun Type 2 diabetes mellitus with hyperglycemia E11.65 [facility] [place] [address] [id number] [place] [address] Jun [facility] [place] [address] [id number] [place] [address] Jun [facility] [place] [address] [id number] [place] [address] Jun Abnormal mammogram of right breast R92.8 and Breast asymmetry N64.89 [facility] [place] [address] [id number] [place] [address] Jun [facility] [place] [address] [id number] [place] [address] Jun [facility] [place] [address] [id number] [place] [address] May Hypoglycemia E16.2 [facility] [place] [address] [id number] [place] [address] May Abnormal neurological exam R29.90 [facility] [place] [address] [id number] [place] [address] May [facility] [place] [address] [id number] [place] [address] May Type 2 diabetes mellitus with hyperglycemia E11.65 [facility] [place] [address] [id number] [place] [address] May Breast cancer screening Z12.31 and Hematuria, unspecified type R31.9 [facility] [place] [address] [id number] [place] [address] May [facility] [place] [address] [id number] [place] [address] May Type 2 diabetes mellitus with hyperglycemia E11.65 ; Essential hypertension I10 ; Moderately severe depression F32.2 and Confusion R41.0 [place] [address] [id number] [address] May, [facility] [place] [address] [id number] [place] [address] May Cerebrovascular accident (CVA), unspecified mechanism I63.9 ; Essential hypertension I10 ; Hyperlipidemia, unspecified E78.5 and Type 2 diabetes mellitus with hyperglycemia E11.65 [place] [address] [id number] [address] May, [place] [address] [id number] [address] May, [facility] [place] [address] [id number] [place] [address] [facility] [place] [address] [id number] [place] [address] May Diabetic neuropathy E11.40 and Diabetes E11.9 [facility] [place] [address] [id number] [place] [address] Apr [facility] [place] [address] [id number] [place] [address] Apr Subacute maxillary sinusitis J01.00 ; Hypoglycemia associated with type 2 diabetes mellitus E11.649 and Intractable episodic headache, unspecified headache type R51 [facility] [place] [address] [id number] [place] [address] Apr Diabetic neuropathy E11.40 and Anxiety F41.9 [facility] [place] [address] [id number] [place] [address] Apr [facility] [place] [address] [id number] [place] [address] Apr Type 2 diabetes mellitus with hyperglycemia E11.65 ; Subacute maxillary sinusitis J01.00 ; Diabetic neuropathy E11.40 and Sleep apnea in adult G47.30 [place] [address] [place] [address] [id number] [place] [address] Apr, [facility] [place] [address] [id number] [place] [address] [facility] [place] [address] [id number] [place] [address] [facility] [place] [address] [id number] [place] [address] Apr Subacute maxillary sinusitis J01.00 [place] [address] [place] [id number] [place] [address] Apr, Right foot drop M21.371 [facility] [place] [address] [id number] [place] [address] Apr [facility] [place] [address] [id number] [place] [address] Mar [facility] [place] [address] [id number] [place] [address] Mar Essential hypertension I10 ; Type 2 diabetes mellitus with hyperglycemia E11.65 ; Encounter for immunization Z23 ; Cocaine abuse F14.10 and Hyperlipidemia, unspecified E78.5 [facility] [place] [address] [id number] [place] [address] Mar [facility] [id number] [place] [address] Mar, [facility] [place] [address] [id number] [place] [address] Feb [facility] [place] [address] [id number] [place] [address] Feb Type 2 diabetes mellitus with hyperglycemia E11.65 and Acute right ankle pain M25.571 [facility] [address] [id number] [place] [address] Feb Weight loss R63.4 and Anxiety F41.9 [place] [id number] [place] [address] Jan, [facility] [id number] [place] [address] Jan, [facility] [id number] [place] [address] Jan, [facility] [id number] [place] [address] Jan, Diabetes E11.9 [facility] [address] [id number] [place] [address] Jan Sprain of right ankle, unspecified ligament, initial encounter S93.401A [facility] [place] [address] [id number] [place] [address] Jan Essential hypertension I10 ; Anxiety F41.9 and Type 2 diabetes mellitus with hyperglycemia E11.65 [facility] [id number] [place] [address] Jan, Diabetes E11.9 [facility] [id number] [place] [address] Jan, [facility] [id number] [place] [address] Jan, [facility] [address] [place] [address] [id number] [place] [address] Jan [facility] [address]005[address], [place] [address] Jan, [facility] [address], [place] [address] Jan, [facility] [address]65100[place], [place] [address] Jan, [facility] [address], [place] [address] Jan, [facility] [address], [place] [address] Jan, Unintentional weight loss R63.4 ; Stage 2 chronic kidney disease N18.2 ; Exposure to hepatitis C Z20.5 ; Diabetic neuropathy E11.40 ; Obstructive sleep apnea syndrome G47.33 ; Essential hypertension I10 and Type 2 diabetes mellitus with hyperglycemia E11.65 [facility] [address], [place] [address] Jan, [facility] [address], [place] [address] Jan, Type 2 diabetes mellitus with hyperglycemia E11.65 ; Diabetic neuropathy E11.40 and Essential hypertension I10 [facility] [address], [place] [address] Dec, Diabetes E11.9 [facility] [address] [id number], [place] [address] Dec, [facility] [address], [place] [address] Dec, [facility] [address] [id number] [address] Dec, [facility] [address], [place] [address] Dec, Dental examination Z01.20 [facility] [address] [id number], [place] [address] Dec, [facility] [address], [place] [address] Dec, Diabetes E11.9 [facility] [address], [place] [address] Dec, Stage 2 chronic kidney disease N18.2 ; Exposure to hepatitis C Z20.5 ; Obstructive sleep apnea syndrome G47.33 and Type 2 diabetes mellitus with hyperglycemia E11.65 [facility] [address], [place] [address] Dec, [facility] [address] [id number] [place] [address] Dec Diabetes E11.9 and Essential hypertension I10 [facility] [address], [place] [address] Nov, Diabetes E11.9 [facility] [address] [id number], [place] [address] Nov, Right foot pain M79.671 [facility] [id number] [place] [address] Nov, Right foot pain M79.671 [facility] [address] [id number] [place] [address] Nov Diabetes E11.9 [facility] [address] [id number] [place] [address] Nov Diabetes E11.9 [facility] [address] [id number] [id number] 16 Nov, 2016 Dental examination Z01.20 [facility] [address] [id number] [place] [address] 09 Nov Diabetes E11.9 ; Cocaine abuse F14.10 and Shingles (herpes zoster) polyneuropathy B02.23 [facility] [address] [id number] [place] [address] Nov [facility] [address] [facility] [id number] [place] [address] October, [facility] [place] [address] [id number] [place] [address] October [facility] [place] [address] [id number] [place] [address] October Unintentional weight loss R63.4 [facility] [place] [address] [id number] [place] [address] October Abscess L02.91 [facility] [place] [address] [id number] [place] [address] October Diabetes E11.9 ; Unintentional weight loss R63.4 ; History of hematuria Z87.448 and Cocaine abuse F14.10 [facility] [place] [address] [id number] [place] [address] October Diabetes E11.9 [facility] [place] [address] [id number] [place] [address] October Essential hypertension I10 and Abscess L02.91 [facility] [place] [address] [id number] [place] [address] Jun [facility] [place] [address] [id number] [place] [address] May Breast cancer screening Z12.39 ; Diabetes E11.9 and Anxiety F41.9 [facility] [place] [address] [facility] [id number] [place] [id number] 16 May, 2016 Diabetes E11.9 [facility] [place] [address] [id number] [place] [address] 15 May Diabetes E11.9 and Anemia D64.9 [facility] [place] [address] [id number] [place] [address] 14 May Anxiety F41.9 [facility] [place] [address] [id number] [place] [address] 08 May [facility] [place] [address] [id number] [place] [address] 06 May Dysuria R30.0 [facility] [address] [id number] [place] [address] May [facility] [address] [id number] [place] [address] May Dysuria R30.0 and Vaginal itching L29.8 [place] [id number] [place] [address] Apr, [facility] [address] [id number] [place] [address] 14 Apr Diabetes E11.9 ; Dysuria R30.0 ; Diabetic neuropathy E11.40 ; Anemia D64.9 and Vaginal discharge N89.8 [place] [address], [place] [address] Jun, [place] [address] [place] [id number] Jun, Anemia D64.9 ; Anxiety F41.9 ; Diabetes E11.9 and Diabetic neuropathy E11.40 [place] [address] [place] [id number] May, [place] [address], [place] [address] Apr, [address]00565100[place] [id number] Apr, Anemia D64.9 ; Anxiety F41.9 ; Diabetes E11.9 and Diabetic neuropathy E11.40 [place] [address] [place] [id number] Mar, Acute costochondritis M94.0 [place] [address] [place] [id number] Mar, Bilateral low back pain without sciatica M54.5 and Bereavement Z63.4 [place] [address] [id number] Mar, Obstructive chronic bronchitis with acute exacerbation J44.1 ; Herpes zoster without complication B02.9 and [place] N91.2 [address]65[address] [id number] Mar, [address]00565100[place] [id number] Mar, [address]00565100[place] [id number] Feb, History of recent traumatic injury of head V15.52 ; Diabetes type 2, uncontrolled 250.02 and Visual disturbance 368.9 [address]00565100[place] [address] Feb, History of recent traumatic injury of head V15.52 ; Visual disturbance 368.9 and Diabetes type 2, uncontrolled 250.02 IMMUNIZATIONS No Known Immunizations SOCIAL HISTORY Never Assessed REASON FOR VISIT Cough, coongestion, runny nose. SOB, nasal stuffiness. amadeo RN PLAN OF CARE Activity Details Follow Up prn Reason: VITAL SIGNS Height 63.50 in 2017-04-23 Weight 115.6 lbs 2017-04-23 Temperature 98.4 degrees Fahrenheit 2017-04-23 Heart Rate 114 bpm 2017-04-23 Respiratory Rate 18 2017-04-23 BMI 20.15 kg/m2 2017-04-23 Blood pressure systolic 168 mmHg 2017-04-23 Blood pressure diastolic 95 mmHg 2017-04-23 MEDICATIONS Medication Instructions Dosage Frequency Start Date End Date Duration Status Pen [place] 31G X 6 MM as directed 24h Apr, 30 days Active Amoxicillin 500 mg Orally every 12 hrs 1 capsule 12h Apr, Apr, 10 day(s) Active Fluticasone Propionate 50 MCG/ACT Nasally Once a day 1 spray in each nostril 24h Apr, 30 day(s) Active Lisinopril 20 MG Orally Once a day 1 tablet 24h Jan, 30 day(s) Active HydrOXYzine HCl 25 MG Orally 2 times a day as needed for anxieyt 1 tablet as needed Feb, 30 day(s) Active MetFORMIN HCl ER 500 mg Orally 2 times a day 2 tablet 12h 30 days Active Ropinirole HCl 1 MG Orally at bedtime 1 tablet 1 to 3 hours before bedtime 30 days Active Simvastatin 40 mg Orally Once a day 1 tablet in the evening 24h 90 days Active Neurontin 300 MG Orally Once a day 1 capsule 24h Jan, 30 day(s ) Active Glucocard Expression Test - subcutaneously 2 times a day as directed 12h Nov, 30 days Active RESULTS No Results [...] infection 2004 Hospitalization History in rehab at [facility] 2016 Hospitalization History Stroke 05/2017 Hospitalization History surgeries Hospitalization History Elevated B/S 07/2017 Hospitalization History [facility] - blood clot [facility] 10/2017
--- OUTSIDE RECORDS SUMMARY | 2018-05-13 11:00 | XMS REPORT ---
Author Author CHRIS BECKWITH [facility] Address [address] [place] [address] Care Team Providers [employer] Worker Name Role Phone CHRIS BECKWITH Unavailable PROBLEMS Type Condition ICD9-CM Code VNB84-NE Code Onset Dates Condition Status SNOMED Code Problem Sleep apnea in adult G47.30 Active 14534907 Problem Moderately severe depression F32.2 Active 797374594 Problem Hypoglycemia associated with type 2 diabetes mellitus E11.649 Active 032390421 Problem PVD (peripheral vascular disease) I73.9 Active 287054065 Problem PAD (peripheral artery disease) I73.9 Active 889435761 Problem Hypoglycemia E16.2 Active 793487236 Problem Cerebrovascular accident (CVA), unspecified mechanism I63.9 Active 417306395 Problem Breast asymmetry N64.89 Active 788513542 Problem Abnormal mammogram of right breast R92.8 Active 598365576 Problem Diabetic neuropathy E11.40 Active 351435800 Problem Anxiety F41.9 Active 69487790 Problem Obstructive sleep apnea syndrome G47.33 Active 98851493 Problem Stage 2 chronic kidney disease N18.2 Active 371171653 Problem Essential hypertension I10 Active 75393981 Problem Type 2 diabetes mellitus with hyperglycemia E11.65 Active 002611446290453 Problem Cocaine abuse F14.10 Active 78085358 Problem Hyperlipidemia, unspecified E78.5 Active 22536558 ALLERGIES No Information ENCOUNTERS Encounter Location Date Diagnosis [facility] [address] [id number] [place] [address] Nov [facility] [address] [id number] [place] [address] Nov [facility] [address] [id number] [place] [address] Nov PVD (peripheral vascular disease) I73.9 ; Type 2 diabetes mellitus with hyperglycemia E11.65 and PAD (peripheral artery disease) I73.9 [facility] [place] [address] [id number] [place] [address] Nov [facility] [place] [address] [id number] [place] [address] Nov [facility] [place] [address] [id number] [place] [address] Nov [facility] [place] [address] [id number] [place] [address] October [facility] [place] [address] [id number] [place] [address] October [facility] [place] [address] [id number] [place] [address] October Type 2 diabetes mellitus with hyperglycemia E11.65 and Surgical procedure on lower extremity within past 6 months Z98.890 [facility] [place] [address] [id number] [place] [address] October [facility] [place] [address] [id number] [place] [address] October [facility] [address] [facility] [id number] [place] [address] October, [facility] [place] [address] [id number] [place] [address] October Sleep apnea in adult G47.30 [facility] [place] [address] [id number] [place] [address] October Type 2 diabetes mellitus with hyperglycemia E11.65 [facility] [place] [address] [id number] [place] [address] Sep [facility] [place] [address] [id number] [place] [address] Sep Breast asymmetry N64.89 [facility] [place] [address] [id number] [place] [address] Sep [facility] [place] [address] [id number] [place] [address] Sep Type 2 diabetes mellitus with hyperglycemia E11.65 ; Cocaine abuse F14.10 and Open wound of right great toe, subsequent encounter S91.101D [facility] [place] [address] [id number] [place] [address] Sep [facility] [place] [address] [id number] [place] [address] Aug [facility] [place] [address] [id number] [place] [address] Aug [facility] [place] [address] [id number] [place] [address] Aug Type 2 diabetes mellitus with hyperglycemia E11.65 [facility] [place] [address] [id number] [place] [address] Aug [facility] [address] [facility] [id number] [place] [address] Aug, [facility] [place] [address] [id number] [place] [address] Jul [facility] [place] [address] [id number] [place] [address] Jul Diabetic neuropathy E11.40 ; Essential hypertension I10 and Type 2 diabetes mellitus with hyperglycemia E11.65 [facility] [place] [address] [id number] [place] [address] Jul [facility] [place] [address] [id number] [place] [address] Jul [facility] [place] [address] [id number] [place] [address] Jul [facility] [place] [address] [id number] [place] [address] Jul [facility] [place] [address] [id number] [place] [address] Jul [facility] [place] [address] [id number] [place] [address] Jul Type 2 diabetes mellitus with hyperglycemia E11.65 ; Open wound of right great toe, subsequent encounter S91.101D ; Essential hypertension I10 and Diabetic neuropathy E11.40 [facility] [id number] [place] [address] Jul, [facility] [place] [address] [id number] [place] [address] Jun [facility] [place] [address] [id number] [place] [address] Jun Type 2 diabetes mellitus with hyperglycemia E11.65 [facility] [place] [address] [id number] [place] [address] Jun [facility] [place] [address] [id number] [place] [address] Jun [facility] [place] [address] [id number] [place] [address] 17 Jun Abnormal mammogram of right breast R92.8 and Breast asymmetry N64.89 [facility] [place] [address] [id number] [place] [address] 15 Jun [facility] [place] [address] [id number] [place] [address] Jun [facility] [place] [address] [id number] [place] [address] May Hypoglycemia E16.2 [facility] [place] [address] [id number] [place] [address] May Abnormal neurological exam R29.90 [facility] [place] [address] [id number] [place] [address] May [facility] [place] [address] [id number] [place] [address] May Type 2 diabetes mellitus with hyperglycemia E11.65 [facility] [place] [address] [id number] [place] [address] May Breast cancer screening Z12.31 and Hematuria, unspecified type R31.9 [facility] [place] [address] [id number] [place] [address] May [facility] [place] [address] [id number] [place] [address] May Type 2 diabetes mellitus with hyperglycemia E11.65 ; Essential hypertension I10 ; Moderately severe depression F32.2 and Confusion R41.0 [place] [address] [address] May, [facility] [place] [address] [id number] [place] [address] May Cerebrovascular accident (CVA), unspecified mechanism I63.9 ; Essential hypertension I10 ; Hyperlipidemia, unspecified E78.5 and Type 2 diabetes mellitus with hyperglycemia E11.65 [place] [address] [address] May, [place] [address] [address] May, [facility] Technologies[facility] [address] [id number] [place] [address] May [facility] [place] [address] [id number] [place] [address] May Diabetic neuropathy E11.40 and Diabetes E11.9 [facility] [place] [address] [id number] [place] [address] Apr [facility] [place] [address] [id number] [place] [address] Apr Subacute maxillary sinusitis J01.00 ; Hypoglycemia associated with type 2 diabetes mellitus E11.649 and Intractable episodic headache, unspecified headache type R51 [facility] [place] [address] [id number] [place] [address] Apr Diabetic neuropathy E11.40 and Anxiety F41.9 [facility] [place] [address] [id number] [place] [address] Apr [facility] [place] [address] [id number] [place] [address] Apr Type 2 diabetes mellitus with hyperglycemia E11.65 ; Subacute maxillary sinusitis J01.00 ; Diabetic neuropathy E11.40 and Sleep apnea in adult G47.30 [place] [address] [place] [id number] [address] Apr, [facility] [place] [address] [id number] [place] [address] Apr [facility] [place] [address] [id number] [place] [address] Apr [facility] [place] [address] [id number] [place] [address] Apr Subacute maxillary sinusitis J01.00 [place] [address] [place] 2705865100[place] [address] Apr, Right foot drop M21.371 [facility] [place] [address] [id number] [place] [address] Apr [facility] [place] [address] [id number] [place] [address] Mar [facility] [place] [address] [id number] [place] [address] Mar Essential hypertension I10 ; Type 2 diabetes mellitus with hyperglycemia E11.65 ; Encounter for immunization Z23 ; Cocaine abuse F14.10 and Hyperlipidemia, unspecified E78.5 [facility] [place] [address] [id number] [place] [address] Mar [place] [address] [address] Mar, [facility] [place] [address] [id number] [place] [address] Feb [facility] [place] [address] [id number] [place] [address] Feb Type 2 diabetes mellitus with hyperglycemia E11.65 and Acute right ankle pain M25.571 [facility] [place] [address] [id number] [place] [address] Feb Weight loss R63.4 and Anxiety F41.9 [place] [address] [address] Jan, [place] [address] [place] [id number] [place] [address] Jan, [facility] [address] [address] Jan, [facility] [address] [address] Jan, Diabetes E11.9 [facility] [place] [address] [id number] [place] [address] Jan Sprain of right ankle, unspecified ligament, initial encounter S93.401A [facility] [place] [address] [id number] [place] [address] Jan Essential hypertension I10 ; Anxiety F41.9 and Type 2 diabetes mellitus with hyperglycemia E11.65 [facility] [address] [place] [address] Jan, Diabetes E11.9 [facility] [address] [place] [address] Jan, [facility] [address] [address] Jan, [facility] MAN [address] [id number] [place] [address] Jan [facility] [address] [address] Jan, [facility] [address] [address] Jan, [facility] [address] [address] Jan, [facility] [address] [place] [address] Jan, [facility] [address] [address] Jan, Unintentional weight loss R63.4 ; Stage 2 chronic kidney disease N18.2 ; Exposure to hepatitis C Z20.5 ; Diabetic neuropathy E11.40 ; Obstructive sleep apnea syndrome G47.33 ; Essential hypertension I10 and Type 2 diabetes mellitus with hyperglycemia E11.65 [facility] [address] [address] Jan, [facility] [address] [place] [address] Jan, Type 2 diabetes mellitus with hyperglycemia E11.65 ; Diabetic neuropathy E11.40 and Essential hypertension I10 [facility] [address] [place] [address] Dec, Diabetes E11.9 [facility] [address] [place] [id number] [place] [address] Dec, [facility] [address] [place] [id number] [place] [address] Dec, [place] [address] [place] [id number] [place] [address] Dec, [facility] [address] [place] [address] Dec, Dental examination Z01.20 [facility] [address] [place] [address] Dec, [facility] [address] [place] [address] Dec, Diabetes E11.9 [facility] [address] [address] Dec, Stage 2 chronic kidney disease N18.2 ; Exposure to hepatitis C Z20.5 ; Obstructive sleep apnea syndrome G47.33 and Type 2 diabetes mellitus with hyperglycemia E11.65 [facility] [address] [address] Dec, [facility] [place] [address] [id number] [place] [address] Dec Diabetes E11.9 and Essential hypertension I10 [facility] [address] [place] [address], [place] [address] Nov, Diabetes E11.9 [facility] [address] [facility] [id number] [place] [address] Nov, Right foot pain M79.671 [facility] [place] [address] [facility] [id number] [place] [address] Nov, Right foot pain M79.671 [facility] [place] [address] [id number] [place] [address] Nov Diabetes E11.9 [facility] [place] [address] [id number] [place] [address] Nov Diabetes E11.9 [facility] [address] [facility] [id number] [place] [address] Nov, Dental examination Z01.20 [facility] [place] [address] [id number] [place] [address] Nov Diabetes E11.9 ; Cocaine abuse F14.10 and Shingles (herpes zoster) polyneuropathy B02.23 [facility] [place] [address] [id number] [place] [address] Nov [facility] [address] [facility] [id number] [place] [address] October, [facility] [place] [address] [id number] [place] [address] October [facility] [place] [address] [id number] [place] [address] October Unintentional weight loss R63.4 [facility] [place] [address] [id number] [place] [address] October Abscess L02.91 [facility] [place] [address] [id number] [place] [address] October Diabetes E11.9 ; Unintentional weight loss R63.4 ; History of hematuria Z87.448 and Cocaine abuse F14.10 [facility] [place] [address] [id number] [place] [address] October Diabetes E11.9 [facility] [place] [address] [id number] [place] [address] October Essential hypertension I10 and Abscess L02.91 [facility] [place] [address] [id number] [place] [address] Jun [facility] [place] [address] [id number] [place] [address] May Breast cancer screening Z12.39 ; Diabetes E11.9 and Anxiety F41.9 [facility] [place] [address] [facility] [id number] [place] [address] May, Diabetes E11.9 [facility] [place] [address] [id number] [place] [address] 15 May Diabetes E11.9 and Anemia D64.9 [facility] [place] [address] [id number] [place] [address] 14 May Anxiety F41.9 [facility] [place] [address] [id number] [place] [address] 08 May [facility] [place] [address] [id number] [place] [address] May Dysuria R30.0 [facility] [place] [address] [id number] [place] [address] 06 May [facility] [place] [address] [id number] [place] [address] 05 May Dysuria R30.0 and Vaginal itching L29.8 [facility] [address] [place] [id number] [address] Apr, [facility] [place] [address] [id number] [place] [address] 14 Apr Diabetes E11.9 ; Dysuria R30.0 ; Diabetic neuropathy E11.40 ; Anemia D64.9 and Vaginal discharge N89.8 [facility] [address] [facility] [id number] [address] Jun, [place] [address] [place] [id number] [place] [id number] Jun, Anemia D64.9 ; Anxiety F41.9 ; Diabetes E11.9 and Diabetic neuropathy E11.40 [address] [address] May, [facility] [address] [place] 2705865100[place] [address] Apr, [place] [id number] [place] [id number] Apr, Anemia D64.9 ; Anxiety F41.9 ; Diabetes E11.9 and Diabetic neuropathy E11.40 [place] [id number] [place] [id number] Mar, Acute costochondritis M94.0 [place] [id number] [place] [id number] Mar, Bilateral low back pain without sciatica M54.5 and Bereavement Z63.4 [place] [address] [place] [phone] Mar, Obstructive chronic bronchitis with acute exacerbation J44.1 ; Herpes zoster without complication B02.9 and [place] N91.2 [address]100[place] [id number] Mar, [place] [address]24[address]100[place] [id number] Mar, [place] [address]2465100[place] [address] Feb, History of recent traumatic injury of head V15.52 ; Diabetes type 2, uncontrolled 250.02 and Visual disturbance 368.9 [address] [id number] Feb, History of recent traumatic injury of head V15.52 ; Visual disturbance 368.9 and Diabetes type 2, uncontrolled 250.02 IMMUNIZATIONS No Known Immunizations SOCIAL HISTORY Never Assessed REASON FOR VISIT Medication refill request PLAN OF CARE VITAL SIGNS MEDICATIONS Medication Instructions Dosage Frequency Start Date End Date Duration Status Bactrim DS 800-160 MG Orally Twice a day 1 tablet 12h Jun,Jun 10 day(s) Active RESULTS No Results PROCEDURES No Known [...] infection 2004 Hospitalization History [facility] 2016 Hospitalization History Stroke 05/2017 Hospitalization History surgeries Hospitalization History Elevated B/S 07/2017 Hospitalization History [facility] - blood clot LRE 10/2017 Hospitalization History [facility] - R ankle clot 11/2017
--- OUTSIDE RECORDS SUMMARY | 2018-05-13 11:00 | XMS REPORT ---
Author Author CHRIS BECKWITH [facility] Address [address] [place] [address] Care Team Providers Care Wire Loop Machine Operator Name Role Phone CHRIS BECKWITH Unavailable PROBLEMS Type Condition ICD9-CM Code NMU80-FB Code Onset Dates Condition Status SNOMED Code Problem Type 2 diabetes mellitus with hyperglycemia E11.65 Active 180310773776433 Problem Sleep apnea in adult G47.30 Active 84291659 Problem Hyperlipidemia, unspecified E78.5 Active 39130611 Problem Abnormal mammogram of right breast R92.8 Active 023179454 Problem Breast asymmetry N64.89 Active 350760060 Problem Moderately severe depression F32.2 Active 393980928 Problem Hypoglycemia associated with type 2 diabetes mellitus E11.649 Active 252372819 Problem Hypoglycemia E16.2 Active 550965227 Problem Cerebrovascular accident (CVA), unspecified mechanism I63.9 Active 720593787 Problem Essential hypertension I10 Active 89155434 Problem Cocaine abuse F14.10 Active 49916871 Problem Diabetic neuropathy E11.40 Active 510129772 Problem Stage 2 chronic kidney disease N18.2 Active 602449533 Problem Anxiety F41.9 Active 21508757 Problem Obstructive sleep apnea syndrome G47.33 Active 95890678 ALLERGIES No Information ENCOUNTERS Encounter [facility] Date [facility] [address] [id number] [place] [address] October Type 2 diabetes mellitus with hyperglycemia E11.65 and Surgical procedure on lower extremity within past 6 months Z98.8[address] [facility] [address] [id number] [place] [address] October [facility] [address] [id number] [place] [address] October [facility] [address] [facility] [id number] [place] [address] October, [facility] [place] [address] [id number] [place] [address] October Sleep apnea in adult G47.30 [facility] [place] [address] [id number] [place] [address] October Type 2 diabetes mellitus with hyperglycemia E11.65 [facility] [place] [address] [id number] [place] [address] Sep [facility] [place] [address] [id number] [place] [address] Sep Breast asymmetry N64.89 [facility] [place] [address] [id number] [place] [address] Sep [facility] [place] [address] [id number] [place] [address] Sep Type 2 diabetes mellitus with hyperglycemia E11.65 ; Cocaine abuse F14.10 and Open wound of right great toe, subsequent encounter S91.101D [facility] [place] [address] [id number] [place] [address] Sep [facility] [place] [address] [id number] [place] [address] Aug [facility] [place] [address] [id number] [place] [address] Aug [facility] [place] [address] [id number] [place] [address] Aug Type 2 diabetes mellitus with hyperglycemia E11.65 [facility] [place] [address] [id number] [place] [address] Aug [facility] [address] [facility] [id number] [place] [address] Aug, [facility] [place] [address] [id number] [place] [address] Jul [facility] [place] [address] [id number] [place] [address] Jul Diabetic neuropathy E11.40 ; Essential hypertension I10 and Type 2 diabetes mellitus with hyperglycemia E11.65 [facility] [place] [address] [id number] [place] [address] Jul [facility] [place] [address] [id number] [place] [address] Jul [facility] [place] [address] [id number] [place] [address] Jul [facility] [place] [address] [id number] [place] [address] Jul [facility] [place] [address] [id number] [place] [address] Jul [facility] [place] [address] [id number] [place] [address] Jul Type 2 diabetes mellitus with hyperglycemia E11.65 ; Open wound of right great toe, subsequent encounter S91.101D ; Essential hypertension I10 and Diabetic neuropathy E11.40 [facility] [address] [id number] [place] [address] Jul, [facility] [place] [address] [id number] [place] [address] Jun [facility] [place] [address] [id number] [place] [address] Jun Type 2 diabetes mellitus with hyperglycemia E11.65 [facility] [place] [address] [id number] [place] [address] Jun [facility] [place] [address] [id number] [place] [address] Jun [facility] [place] [address] [id number] [place] [address] Jun Abnormal mammogram of right breast R92.8 and Breast asymmetry N64.89 [facility] [place] [address] [id number] [place] [address] Jun [facility] [place] [address] [id number] [place] [address] Jun [facility] [place] [address] [id number] [place] [address] May Hypoglycemia E16.2 [facility] [place] [address] [id number] [place] [address] May Abnormal neurological exam R29.90 [facility] [place] [address] [id number] [place] [address] May [facility] [place] [address] [id number] [place] [address] May Type 2 diabetes mellitus with hyperglycemia E11.65 [facility] [place] [address] [id number] [place] [address] May Breast cancer screening Z12.31 and Hematuria, unspecified type R31.9 [facility] [place] [address] [id number] [place] [address] May [facility] [place] [address] [id number] [place] [address] May Type 2 diabetes mellitus with hyperglycemia E11.65 ; Essential hypertension I10 ; Moderately severe depression F32.2 and Confusion R41.0 [place] [address] [place] [id number] [address] May, [facility] [employer] [place] [address] [id number] [place] [address] May Cerebrovascular accident (CVA), unspecified mechanism I63.9 ; Essential hypertension I10 ; Hyperlipidemia, unspecified E78.5 and Type 2 diabetes mellitus with hyperglycemia E11.65 [place] [address] [id number], [place] [address] May, [place] [address] [id number], [place] [address] May, [facility] [place] [address] [id number] [place] [address] May [facility] [place] [address] [id number] [place] [address] May Diabetic neuropathy E11.40 and Diabetes E11.9 [facility] [employer] [place] [address] [id number] [place] [address] Apr [facility] [place] [address] [id number] [place] [address] Apr Subacute maxillary sinusitis J01.00 ; Hypoglycemia associated with type 2 diabetes mellitus E11.649 and Intractable episodic headache, unspecified headache type R51 [facility] [place] [address] [id number] [place] [address] Apr Diabetic neuropathy E11.40 and Anxiety F41.9 [facility] [place] [address] [id number] [place] [address] Apr [facility] [place] [address] [id number] [place] [address] Apr Type 2 diabetes mellitus with hyperglycemia E11.65 ; Subacute maxillary sinusitis J01.00 ; Diabetic neuropathy E11.40 and Sleep apnea in adult G47.30 [facility] [address] [id number] [address] Apr, [facility] [employer] [place] [address] [id number] [place] [address] Apr [facility] [employer] [place] [address] [id number] [place] [address] Apr [facility] [facility] [place] [address] [id number] [place] [address] Apr Subacute maxillary sinusitis J01.00 [facility] [address] [id number] [address] Apr, Right foot drop M21.371 [facility] [employer] [place] [address] [id number] [place] [address] Apr [facility] [place] [address] [id number] [place] [address] Mar [facility] [place] [address] [id number] [place] [address] Mar Essential hypertension I10 ; Type 2 diabetes mellitus with hyperglycemia E11.65 ; Encounter for immunization Z23 ; Cocaine abuse F14.10 and Hyperlipidemia, unspecified E78.5 [facility] [place] [address] [id number] [place] [address] Mar [facility] [address] [id number], [place] [address] Mar, [facility] [place] [address] [id number] [place] [address] Feb [facility] [address] [id number] [place] [address] Feb Type 2 diabetes mellitus with hyperglycemia E11.65 and Acute right ankle pain M25.571 [facility] [place] [address] [id number] [place] [address] Feb Weight loss R63.4 and Anxiety F41.9 [facility] [address] [place] [address] Jan, [facility] [address] [place] [address] Jan, [facility] [address], [place] [address] Jan, [facility] [address] [place] [address] Jan, Diabetes E11.9 [facility] [address] [id number] [place] [address] Jan Sprain of right ankle, unspecified ligament, initial encounter S93.401A [facility] [place] [address] [id number] [place] [address] Jan Essential hypertension I10 ; Anxiety F41.9 and Type 2 diabetes mellitus with hyperglycemia E11.65 [facility] [address] [id number], [place] [address] Jan, Diabetes E11.9 [facility] [address], [place] [address] Jan, [facility] [address] [id number], [place] [address] Jan, [facility] [address] [id number] [place] [address] Jan [facility] [address], [place] [address] Jan, [facility] [address], [place] [address] Jan, [facility] [address] [place] [address] Jan, [facility] [address] [place] [address] Jan, [facility] [address] [place] [address] Jan, Unintentional weight loss R63.4 ; Stage 2 chronic kidney disease N18.2 ; Exposure to hepatitis C Z20.5 ; Diabetic neuropathy E11.40 ; Obstructive sleep apnea syndrome G47.33 ; Essential hypertension I10 and Type 2 diabetes mellitus with hyperglycemia E11.65 [facility] [address], [place] [address] Jan, [facility] [address] [place] [address] Jan, Type 2 diabetes mellitus with hyperglycemia E11.65 ; Diabetic neuropathy E11.40 and Essential hypertension I10 [facility] [address] [place] [address] Dec, Diabetes E11.9 [facility] [address], [place] [address] Dec, [facility] [address], [place] [address] Dec, [facility] [id number] [place] [address] Dec, [facility] [address] [place] [address] Dec, Dental examination Z01.20 [facility] [address] [place] [address] Dec, [facility] [address], [place] [address] Dec, Diabetes E11.9 [facility] [address], [place] [address] Dec, Stage 2 chronic kidney disease N18.2 ; Exposure to hepatitis C Z20.5 ; Obstructive sleep apnea syndrome G47.33 and Type 2 diabetes mellitus with hyperglycemia E11.65 [facility] [address], [place] [address] Dec, [facility] [address] [id number] [place] [address] Dec Diabetes E11.9 and Essential hypertension I10 [place] [address], [place] [address] Nov, Diabetes E11.9 [facility] [address], [place] [address] Nov, Right foot pain M79.671 [facility] [id number] [address] Nov, Right foot pain M79.671 [facility] [address] [id number] [place] [address] Nov Diabetes E11.9 [facility] [address] [id number] [place] [address] Nov Diabetes E11.9 [facility] [address] [id number] [address] 16 Nov, 2016 Dental examination Z01.20 [facility] [address] [id number] [place] [address] 09 Nov Diabetes E11.9 ; Cocaine abuse F14.10 and Shingles (herpes zoster) polyneuropathy B02.23 [facility] [address] [id number] [place] [address] Nov [place] [address] [address] October, [facility] [place] [address] [id number] [place] [address] October [facility] [place] [address] [id number] [place] [address] October Unintentional weight loss R63.4 [facility] [place] [address] [id number] [place] [address] October Abscess L02.91 [facility] [place] [address] [id number] [place] [address] October Diabetes E11.9 ; Unintentional weight loss R63.4 ; History of hematuria Z87.448 and Cocaine abuse F14.10 [facility] [place] [address] [id number] [place] [address] October Diabetes E11.9 [facility] [place] [address] [id number] [place] [address] October Essential hypertension I10 and Abscess L02.91 [facility] [place] [address] [id number] [place] [address] Jun [facility] [place] [address] [id number] [place] [address] May Breast cancer screening Z12.39 ; Diabetes E11.9 and Anxiety F41.9 [facility] [address] [facility] [id number] [place] [address] May, Diabetes E11.9 [facility] [place] [address] [id number] [place] [address] 15 May Diabetes E11.9 and Anemia D64.9 [facility] [place] [address] [id number] [place] [address] 14 May Anxiety F41.9 [facility] [place] [address] [id number] [place] [address] 08 May [facility] [place] [address] [id number] [place] [address] 06 May Dysuria R30.0 [facility] [place] [address] [id number] [place] [address] May [facility] [address] [id number] [place] [address] May Dysuria R30.0 and Vaginal itching L29.8 [facility] [address] [id number], [place] [address] Apr, [facility] [address] [id number] [place] [address] Apr Diabetes E11.9 ; Dysuria R30.0 ; Diabetic neuropathy E11.40 ; Anemia D64.9 and Vaginal discharge N89.8 [place] [id number] [place] [address] Jun, [address] [address] Jun, Anemia D64.9 ; Anxiety F41.9 ; Diabetes E11.9 and Diabetic neuropathy E11.[address] [place] [id number] May, [place] [id number] [place] [address] Apr, [address] [place] [id number] Apr, Anemia D64.9 ; Anxiety F41.9 ; Diabetes E11.9 and Diabetic neuropathy E11.40 [address] [place] [place] [id number] Mar, Acute costochondritis M94.0 [address] [place] [address] [place] [phone] Mar, Bilateral low back pain without sciatica M54.5 and Bereavement Z63.4 [address] [place] [address] [place] [phone] Mar, Obstructive chronic bronchitis with acute exacerbation J44.1 ; Herpes zoster without complication B02.9 and [place] N91.2 [facility] [address] [facility] [id number] [id number] Mar, [facility] [address] [place] [address]B[place]65100[place] [id number] Mar, [place] [id number] [address] Feb, History of recent traumatic injury of head V15.52 ; Diabetes type 2, uncontrolled 250.02 and Visual disturbance 368.9 [place] [id number] [phone] Feb, History of recent traumatic injury of head V15.52 ; Visual disturbance 368.9 and Diabetes type 2, uncontrolled 250.02 IMMUNIZATIONS No Known Immunizations SOCIAL HISTORY Never Assessed REASON FOR VISIT BS f/u attempt PLAN OF CARE VITAL SIGNS MEDICATIONS No Known Medications RESULTS No Results PROCEDURES No Known [...] infection 2004 Hospitalization History in [facility]hab [facility] 2016 Hospitalization History Stroke 05/2017 Hospitalization History surgeries Hospitalization History Elevated B/S 07/2017 Hospitalization History [facility] - blood clot LRE 10/2017
--- OUTSIDE RECORDS SUMMARY | 2018-05-13 11:01 | XMS REPORT ---
Author Author CHRIS BECKWITH [facility] Address [address] [place] [address] Care Team Providers Care A And P Technician Name Role Phone CHRIS BECKWITH Unavailable PROBLEMS Type Condition ICD9-CM Code CCK11-SO Code Onset Dates Condition Status SNOMED Code Problem Diabetic neuropathy E11.40 Active 800053015 Problem Anxiety F41.9 Active 73341902 Problem Type 2 diabetes mellitus with hyperglycemia E11.65 Active 999644314394908 Problem Obstructive sleep apnea syndrome G47.33 Active 69070085 Problem Essential hypertension I10 Active 14510421 Problem Anemia D64.9 Active 572538802 Problem Stage 2 chronic kidney disease N18.2 Active 250004228 Problem Cocaine abuse F14.10 Active 15155195 ALLERGIES Substance Reaction Event Type Date Status Phenergan nausea Drug Allergy May, Active Penicillin V Potassium nausea Drug Allergy May, Active SOCIAL HISTORY No smoking Hx information available PLAN OF CARE Activity Details Follow Up tomorrow Reason:dysuria VITAL SIGNS Height 63.50 in 2016-05-13 Weight 122.7 lbs 2016-05-13 Temperature 98.4 degrees Fahrenheit 2016-05-13 Heart Rate 92 bpm 2016-05-13 Respiratory Rate 18 2016-05-13 BMI 21.39 kg/m2 2016-05-13 Blood pressure systolic 118 mmHg 2016-05-13 Blood pressure diastolic 76 mmHg 2016-05-13 MEDICATIONS Medication Instructions Dosage Frequency Start Date End Date Duration Status Pen [place] 31G X 6 MM as directed 24h Apr, 30 days Active Simvastatin 20 mg Orally Once a day 1 tablet in the evening 24h Active Lisinopril 10 mg Orally Once a day 1 tablet 24h Active HydrOXYzine HCl 25 MG TAKE ONE TABLET BY MOUTH EVERY 8 HOURS NEEDED 0 Active Meloxicam 15 MG TAKE 1/2 TABLET (7.5MG) BY MOUTH TWICE DAILY 0 Active Naproxen 500 MG Orally every 12 hrs as needed for the pain 1 tablet as needed Mar, Active Ropinirole HCl 1 MG 1 tablet 1 to 3 hours before bedtime 30 days Active Flagyl 500 MG Orally x1 4 tablets Apr, 1 dose Active Lyrica 100 MG Orally Twice a day 1 capsule 12h Active Accu-Chek Jennifer 1 Pack one device Active Lantus 100 UNIT/ML Subcutaneous Once a day at night 15 units Active MetFORMIN HCl ER 500 MG Orally 2 times a day 2 tablet 12h Apr, 30 day(s) Active RESULTS Name Result Date Reference Range UA LONG DIP (IN HOUSE) 2016-05-13 Lot # [id number] Exp date 01/2017 Clarity Color Odor GLU AVERY KET SG BLO pH Protein URO NIT ITALIA Lot # Exp date PROCEDURES Procedure Date Ordered Related Diagnosis Body Site URINALYSIS, AUTO, W/O SCOPE May 13, 2016 Office Visit, Est Pt., Level 3 May 13, 2016 IMMUNIZATIONS No Known Immunizations
--- OUTSIDE RECORDS SUMMARY | 2018-05-13 11:01 | XMS REPORT ---
Author Author BARRETT SCHRADER [facility] Address [address] [place] [address] Care Team Providers Care Abalone Processor Name Role Phone BARRETT SCHRADER Unavailable PROBLEMS Type Condition ICD9-CM Code JZT90-LB Code Onset Dates Condition Status SNOMED Code Problem Type 2 diabetes mellitus with hyperglycemia E11.65 Active 045591176206397 Problem Sleep apnea in adult G47.30 Active 48434419 Problem Hyperlipidemia, unspecified E78.5 Active 17121239 Problem Abnormal mammogram of right breast R92.8 Active 722663765 Problem Breast asymmetry N64.89 Active 211732858 Problem Moderately severe depression F32.2 Active 686069520 Problem Hypoglycemia associated with type 2 diabetes mellitus E11.649 Active 445199652 Problem Hypoglycemia E16.2 Active 987668843 Problem Cerebrovascular accident (CVA), unspecified mechanism I63.9 Active 227630146 Problem Essential hypertension I10 Active 40058750 Problem Cocaine abuse F14.10 Active 16357006 Problem Diabetic neuropathy E11.40 Active 385692492 Problem Stage 2 chronic kidney disease N18.2 Active 337231307 Problem Anxiety F41.9 Active 29645930 Problem Obstructive sleep apnea syndrome G47.33 Active 04113564 ALLERGIES No Information ENCOUNTERS Encounter Location Date Diagnosis [employer] AMN [address] [id number] [place] [address] Sep [facility] TechnologiesONS [address] [id number] [place] [address] Sep [facility] [place] [address] [id number] [place] [address] Aug [facility] TechnologiesONS [address] [id number] [place] [address] Aug [facility] TechnologiesONS [address] [id number] [place] [address] Aug Type 2 diabetes mellitus with hyperglycemia E11.65 [facility] [place] [address] [id number] [place] [address] Aug [facility] [address] [facility] [id number] [place] [address] Aug, [facility] [place] [address] [id number] [place] [address] Jul [facility] [place] [address] [id number] [place] [address] Jul Diabetic neuropathy E11.40 ; Essential hypertension I10 and Type 2 diabetes mellitus with hyperglycemia E11.65 [facility] [place] [address] [id number] [place] [address] Jul [facility] [place] [address] [id number] [place] [address] Jul [facility] [place] [address] [id number] [place] [address] Jul [facility] [place] [address] [id number] [place] [address] Jul [facility] [place] [address] [id number] [place] [address] Jul [facility] [place] [address] [id number] [place] [address] Jul Type 2 diabetes mellitus with hyperglycemia E11.65 ; Open wound of right great toe, subsequent encounter S91.101D ; Essential hypertension I10 and Diabetic neuropathy E11.[address] [facility] [address] [id number] [place] [address] Jul, [facility] [place] [address] [id number] [place] [address] Jun [facility] [place] [address] [id number] [place] [address] Jun Type 2 diabetes mellitus with hyperglycemia E11.65 [facility] [place] [address] [id number] [place] [address] Jun [facility] [place] [address] [id number] [place] [address] Jun [facility] [place] [address] [id number] [place] [address] Jun Abnormal mammogram of right breast R92.8 and Breast asymmetry N64.89 [facility] [place] [address] [id number] [place] [address] Jun [facility] [place] [address] [id number] [place] [address] Jun [facility] [place] [address] [id number] [place] [address] May Hypoglycemia E16.2 [facility] [place] [address] [id number] [place] [address] May Abnormal neurological exam R29.90 [facility] [place] [address] [id number] [place] [address] May [facility] [place] [address] [id number] [place] [address] May Type 2 diabetes mellitus with hyperglycemia E11.65 [facility] [place] [address] [id number] [place] [address] May Breast cancer screening Z12.31 and Hematuria, unspecified type R31.9 [facility] [place] [address] [id number] [place] [address] May [facility] [place] [address] [id number] [place] [address] May Type 2 diabetes mellitus with hyperglycemia E11.65 ; Essential hypertension I10 ; Moderately severe depression F32.2 and Confusion R41.0 [place] [address] [id number] [address] May, [facility] [place] [address] [id number] [place] [address] 08 May Cerebrovascular accident (CVA), unspecified mechanism I63.9 ; Essential hypertension I10 ; Hyperlipidemia, unspecified E78.5 and Type 2 diabetes mellitus with hyperglycemia E11.65 [place] [address] [facility] [id number] [place] [address] May, [facility] [address] [facility] [id number] [place] [address] May, [facility] [place] [address] [id number] [place] [address] May [facility] [place] [address] [id number] [place] [address] May Diabetic neuropathy E11.40 and Diabetes E11.9 [facility] [place] [address] [id number] [place] [address] Apr [facility] [place] [address] [id number] [place] [address] Apr Subacute maxillary sinusitis J01.00 ; Hypoglycemia associated with type 2 diabetes mellitus E11.649 and Intractable episodic headache, unspecified headache type R51 [facility] [place] [address] [id number] [place] [address] Apr Diabetic neuropathy E11.40 and Anxiety F41.9 [facility] [place] [address] [id number] [place] [address] Apr [facility] [place] [address] [id number] [place] [address] Apr Type 2 diabetes mellitus with hyperglycemia E11.65 ; Subacute maxillary sinusitis J01.00 ; Diabetic neuropathy E11.40 and Sleep apnea in adult G47.30 [place] [address] [facility] [id number] [place] [address] Apr, [facility] [place] [address] [id number] [place] [address] Apr [facility] [place] [address] [id number] [place] [address] Apr [facility] [place] [address] [id number] [place] [address] Apr Subacute maxillary sinusitis J01.00 [place] [address] [facility] [id number] [place] [address] Apr, Right foot drop M21.371 [facility] [place] [address] [id number] [place] [address] Apr [facility] [place] [address] [id number] [place] [address] Mar [facility] [place] [address] [id number] [place] [address] Mar Essential hypertension I10 ; Type 2 diabetes mellitus with hyperglycemia E11.65 ; Encounter for immunization Z23 ; Cocaine abuse F14.10 and Hyperlipidemia, unspecified E78.5 [facility] [place] [address] [id number] [place] [address] Mar [place] [address] [place] [id number] [place] [address] Mar, [facility]SEGroup[facility] [place] [address] [id number] [place] [address] Feb [facility] [place] [address] [id number] [place] [address] Feb Type 2 diabetes mellitus with hyperglycemia E11.65 and Acute right ankle pain M25.571 [facility] [place] [address] [id number] [place] [address] Feb Weight loss R63.4 and Anxiety F41.9 [place] [address] [address] Jan, [place] [address] [place] [id number] [place] [address] Jan, [facility] [address] [place] [address] Jan, [place] [address] [place] [address] [id number] [place] [address] Jan, Diabetes E11.9 [facility] [place] [address] [id number] [place] [address] Jan Sprain of right ankle, unspecified ligament, initial encounter S93.401A [facility]SEGroup[facility] [place] [address] [id number] [place] [address] Jan Essential hypertension I10 ; Anxiety F41.9 and Type 2 diabetes mellitus with hyperglycemia E11.65 [facility] [address] [place] [address] Jan, Diabetes E11.9 [facility] [id number] [place] [address] Jan, [facility] [id number] [place] [address] Jan, [facility] Minerva LOZANOE [id number] [place] [address] Jan [facility] [id number] [place] [address] Jan, [facility] [id number] [place] [address] Jan, [facility] [id number] [place] [address] Jan, [facility] [address] [place] [address] Jan, [facility] [id number] [place] [address] Jan, Unintentional weight loss R63.4 ; Stage 2 chronic kidney disease N18.2 ; Exposure to hepatitis C Z20.5 ; Diabetic neuropathy E11.40 ; Obstructive sleep apnea syndrome G47.33 ; Essential hypertension I10 and Type 2 diabetes mellitus with hyperglycemia E11.65 [facility] [address] [address] Jan, [facility] [id number] [place] [address] Jan, Type 2 diabetes mellitus with hyperglycemia E11.65 ; Diabetic neuropathy E11.40 and Essential hypertension I10 [facility] [address] [place] [address] Dec, Diabetes E11.9 [facility] [address] [id number] [address] Dec, [facility] [address] [address] Dec, [facility] [address] [address] Dec, [facility] [address] [address] Dec, Dental examination Z01.20 [facility] [address] [address] Dec, [facility] [address] [address] Dec, Diabetes E11.9 [facility] [address] [address] Dec, Stage 2 chronic kidney disease N18.2 ; Exposure to hepatitis C Z20.5 ; Obstructive sleep apnea syndrome G47.33 and Type 2 diabetes mellitus with hyperglycemia E11.65 [facility] [address] [address] Dec, [facility] MAN [address] [id number] [place] [address] Dec Diabetes E11.9 and Essential hypertension I10 [facility] [address] [id number] [address] Nov, Diabetes E11.9 [facility] [address] [id number] [address] Nov, Right foot pain M79.671 [facility] [address] [id number] [address] Nov, Right foot pain M79.[address] [facility] MAN [address] [id number] [place] [address] Nov Diabetes E11.[address] [facility] MAN [address] [id number] [place] [address] Nov Diabetes E11.9 [facility] [address] [id number] [place] [address] Nov, Dental examination Z01.20 [facility] [address] [id number] [place] [address] 09 Nov Diabetes E11.9 ; Cocaine abuse F14.10 and Shingles (herpes zoster) polyneuropathy B02.23 [facility] [place] [address] [id number] [place] [address] Nov [facility] [address] [facility] [id number] [place] [address] October, [facility] [place] [address] [id number] [place] [address] October [facility] [place] [address] [id number] [place] [address] October Unintentional weight loss R63.4 [facility] [place] [address] [id number] [place] [address] October Abscess L02.91 [facility] [place] [address] [id number] [place] [address] October Diabetes E11.9 ; Unintentional weight loss R63.4 ; History of hematuria Z87.448 and Cocaine abuse F14.10 [facility] [place] [address] [id number] [place] [address] October Diabetes E11.9 [facility] [place] [address] [id number] [place] [address] October Essential hypertension I10 and Abscess L02.91 [facility] [place] [address] [id number] [place] [address] Jun [facility] [place] [address] [id number] [place] [address] May Breast cancer screening Z12.39 ; Diabetes E11.9 and Anxiety F41.9 [facility] [place] [address] [facility] [id number] [place] [address] May, Diabetes E11.9 [facility] [place] [address] [id number] [place] [address] 15 May Diabetes E11.9 and Anemia D64.9 [facility] [place] [address] [id number] [place] [address] 14 May Anxiety F41.9 [facility] [place] [address] [id number] [place] [address] May [facility] [place] [address] [id number] [place] [address] May Dysuria R30.0 [facility] [place] [address] [id number] [place] [address] May [facility] [place] [address] [id number] [place] [address] May Dysuria R30.0 and Vaginal itching L29.8 [facility] [id number] [place] [address] Apr, [facility] [place] [address] [id number] [place] [address] Apr Diabetes E11.9 ; Dysuria R30.0 ; Diabetic neuropathy E11.40 ; Anemia D64.9 and Vaginal discharge N89.8 [facility] [address] [place] [address] Jun, [address]100[place] [address] Jun, Anemia D64.9 ; Anxiety F41.9 ; Diabetes E11.9 and Diabetic neuropathy E11.40 [place] [address] [place] [id number] May, [facility] [id number] [place] [address] Apr, [address]100[place] [address] Apr, Anemia D64.9 ; Anxiety F41.9 ; Diabetes E11.9 and Diabetic neuropathy E11.40 [address]65100[place] [address] Mar, Acute costochondritis M94.0 [place] [address] [place] [id number] Mar, Bilateral low back pain without sciatica M54.5 and Bereavement Z63.4 [place] [address] [place] [id number] 14 Mar, 2015 Obstructive chronic bronchitis with acute exacerbation J44.1 ; Herpes zoster without complication B02.9 and Elizabeth N91.2 [place] [address] [place] [id number] Mar, [place] [address] [place] [id number] Mar, [place] [address] [place] [id number] Feb, History of recent traumatic injury of head V15.52 ; Diabetes type 2, uncontrolled 250.02 and Visual disturbance 368.9 [address]65100[place] [address] Feb, History of recent traumatic injury of [...] infection 2004 Hospitalization History in rehab at [facility] 2016 Hospitalization History Stroke 05/2017 Hospitalization History surgeries Hospitalization History Elevated B/S 07/2017
--- OUTSIDE RECORDS SUMMARY | 2018-05-13 11:01 | XMS REPORT ---
Author Author CHRIS BECKWITH [facility] Address [address] [place] [address] Care Team Providers Care Airport Operations Crew Member Name Role Phone CHRIS BECKWITH Unavailable PROBLEMS Type Condition ICD9-CM Code JBE19-VL Code Onset Dates Condition Status SNOMED Code Problem Anxiety F41.9 Active 70324521 Problem Diabetic neuropathy E11.40 Active 830992370 Problem Hyperlipidemia, unspecified E78.5 Active 72733701 Problem Type 2 diabetes mellitus with hyperglycemia E11.65 Active 547133124397334 Problem Cocaine abuse F14.10 Active 27114417 Problem Essential hypertension I10 Active 66032474 Problem Obstructive sleep apnea syndrome G47.33 Active 14712383 Problem Stage 2 chronic kidney disease N18.2 Active 247449084 ALLERGIES No Information SOCIAL HISTORY Never Assessed [...] infection 2004 Hospitalization History in rehab at [place] [address]
--- OUTSIDE RECORDS SUMMARY | 2018-05-13 11:01 | XMS REPORT ---
Author Author BARRETT SCHRADER Organization [facility] Address [address] [place] [address] Care Team Providers Care Braid Pattern Setter Name Role Phone BARRETT SCHRADER Unavailable PROBLEMS Type Condition ICD9-CM Code XNF65-OR Code Onset Dates Condition Status SNOMED Code Problem Type 2 diabetes mellitus with hyperglycemia E11.65 Active 449613367519688 Problem Sleep apnea in adult G47.30 Active 18717618 Problem Hyperlipidemia, unspecified E78.5 Active 70638653 Problem Abnormal mammogram of right breast R92.8 Active 750636538 Problem Breast asymmetry N64.89 Active 735544594 Problem Moderately severe depression F32.2 Active 725405952 Problem Hypoglycemia associated with type 2 diabetes mellitus E11.649 Active 682844897 Problem Hypoglycemia E16.2 Active 896446778 Problem Cerebrovascular accident (CVA), unspecified mechanism I63.9 Active 966795374 Problem Essential hypertension I10 Active 42065944 Problem Cocaine abuse F14.10 Active 86076808 Problem Diabetic neuropathy E11.40 Active 912700466 Problem Stage 2 chronic kidney disease N18.2 Active 265394693 Problem Anxiety F41.9 Active 75855387 Problem Obstructive sleep apnea syndrome G47.33 Active 18000213 ALLERGIES No Information ENCOUNTERS Encounter Location Date Diagnosis [facility] [address] [id number] [place] [address] October Type 2 diabetes mellitus with hyperglycemia E11.65 and Surgical procedure on lower extremity within past 6 months [address]98.[address] [id number] [place] [address] October [facility] [address] [id number] [place] [address] October [facility] [address] [facility] [id number] [place] [address] October, [facility] [address] [id number] [place] [address] 15 October Sleep apnea in adult G47.30 [facility] [place] [address] [id number] [place] [address] October Type 2 diabetes mellitus with hyperglycemia E11.65 [facility] [place] [address] [id number] [place] [address] Sep [facility] [place] [address] [id number] [place] [address] Sep Breast asymmetry N64.89 [facility] [place] [address] [id number] [place] [address] Sep [facility] [place] [address] [id number] [place] [address] Sep Type 2 diabetes mellitus with hyperglycemia E11.65 ; Cocaine abuse F14.10 and Open wound of right great toe, subsequent encounter S91.101D [facility] [place] [address] [id number] [place] [address] Sep [facility] [place] [address] [id number] [place] [address] Aug [facility] [place] [address] [id number] [place] [address] Aug [facility] [place] [address] [id number] [place] [address] Aug Type 2 diabetes mellitus with hyperglycemia E11.65 [facility] [place] [address] [id number] [place] [address] Aug [facility] [address] [facility] [id number] [place] [address] Aug, [facility] [place] [address] [id number] [place] [address] Jul [facility] [place] [address] [id number] [place] [address] Jul Diabetic neuropathy E11.40 ; Essential hypertension I10 and Type 2 diabetes mellitus with hyperglycemia E11.65 [facility] [place] [address] [id number] [place] [address] Jul [facility] [place] [address] [id number] [place] [address] Jul [facility] [place] [address] [id number] [place] [address] Jul [facility] [place] [address] [id number] [place] [address] Jul [facility] [place] [address] [id number] [place] [address] Jul [facility] [place] [address] [id number] [place] [address] Jul Type 2 diabetes mellitus with hyperglycemia E11.65 ; Open wound of right great toe, subsequent encounter S91.101D ; Essential hypertension I10 and Diabetic neuropathy E11.40 [facility] [address] [id number] [place] [address] Jul, [facility] [place] [address] [id number] [place] [address] Jun [facility] [place] [address] [id number] [place] [address] Jun Type 2 diabetes mellitus with hyperglycemia E11.65 [facility] [place] [address] [id number] [place] [address] Jun [facility] [place] [address] [id number] [place] [address] Jun [facility] [place] [address] [id number] [place] [address] Jun Abnormal mammogram of right breast R92.8 and Breast asymmetry N64.89 [facility] [place] [address] [id number] [place] [address] Jun [facility] [place] [address] [id number] [place] [address] Jun [facility] [place] [address] [id number] [place] [address] May Hypoglycemia E16.2 [facility] [place] [address] [id number] [place] [address] May Abnormal neurological exam R29.90 [facility] [place] [address] [id number] [place] [address] May [facility] [place] [address] [id number] [place] [address] May Type 2 diabetes mellitus with hyperglycemia E11.65 [facility] [place] [address] [id number] [place] [address] May Breast cancer screening Z12.31 and Hematuria, unspecified type R31.9 [facility] [place] [address] [id number] [place] [address] May [facility] [place] [address] [id number] [place] [address] May Type 2 diabetes mellitus with hyperglycemia E11.65 ; Essential hypertension I10 ; Moderately severe depression F32.2 and Confusion R41.0 [place] [address] [address] [id number] [address] May, [facility] [place] [address] [id number] [place] [address] May Cerebrovascular accident (CVA), unspecified mechanism I63.9 ; Essential hypertension I10 ; Hyperlipidemia, unspecified E78.5 and Type 2 diabetes mellitus with hyperglycemia E11.65 [place] [address] [address] [id number] [address] May, [place] [address] [id number] [address] May, [facility] [place] [address] [id number] [place] [address] May [facility] [place] [address] [id number] [place] [address] May Diabetic neuropathy E11.40 and Diabetes E11.9 [facility] [place] [address] [id number] [place] [address] Apr [facility] [place] [address] [id number] [place] [address] Apr Subacute maxillary sinusitis J01.00 ; Hypoglycemia associated with type 2 diabetes mellitus E11.649 and Intractable episodic headache, unspecified headache type R51 [facility] [place] [address] [id number] [place] [address] Apr Diabetic neuropathy E11.40 and Anxiety F41.9 [facility] [place] [address] [id number] [place] [address] Apr [facility] [place] [address] [id number] [place] [address] Apr Type 2 diabetes mellitus with hyperglycemia E11.65 ; Subacute maxillary sinusitis J01.00 ; Diabetic neuropathy E11.40 and Sleep apnea in adult G47.30 [place] [address] [address] [address] [id number] [address] Apr, [facility] [place] [address] [id number] [place] [address] Apr [facility] [place] [address] [id number] [place] [address] Apr [facility] [place] [address] [id number] [place] [address] Apr Subacute maxillary sinusitis J01.00 [place] [address] [address] [address] [id number] [address] Apr, Right foot drop M21.371 [facility] [place] [address] [id number] [place] [address] Apr [facility] [place] [address] [id number] [place] [address] Mar [facility] [place] [address] [id number] [place] [address] Mar Essential hypertension I10 ; Type 2 diabetes mellitus with hyperglycemia E11.65 ; Encounter for immunization Z23 ; Cocaine abuse F14.10 and Hyperlipidemia, unspecified E78.5 [facility] [place] [address] [id number] [place] [address] Mar [facility] [address] [id number] [address] Mar, [facility] [place] [address] [id number] [place] [address] Feb [facility] [address] [id number] [place] [address] Feb Type 2 diabetes mellitus with hyperglycemia E11.65 and Acute right ankle pain M25.571 [facility] [address] [id number] [place] [address] Feb Weight loss R63.4 and Anxiety F41.9 [facility] [id number] [place] [address] Jan, [facility] [id number] [place] [address] Jan, [facility] [id number] [place] [address] Jan, [facility] [address] [place] [address] Jan, Diabetes E11.9 [facility] [address] [id number] [place] [address] Jan Sprain of right ankle, unspecified ligament, initial encounter S93.401A [facility] [address] [id number] [place] [address] Jan Essential hypertension I10 ; Anxiety F41.9 and Type 2 diabetes mellitus with hyperglycemia E11.65 [facility] [address] [place] [address] Jan, Diabetes E11.9 [facility] [id number] [place] [address] Jan, [facility] [address] [place] [address] Jan, [facility] [address] [id number] [place] [address] Jan [facility] [address], [place] [address] Jan, [facility] [id number] [place] [address] Jan, [facility] [id number] [place] [address] Jan, [facility] [id number] [place] [address] Jan, [facility] [id number] [place] [address] Jan, Unintentional weight loss R63.4 ; Stage 2 chronic kidney disease N18.2 ; Exposure to hepatitis C Z20.5 ; Diabetic neuropathy E11.40 ; Obstructive sleep apnea syndrome G47.33 ; Essential hypertension I10 and Type 2 diabetes mellitus with hyperglycemia E11.65 [facility] [address] [place] [address] Jan, [facility] [id number] [place] [address] Jan, Type 2 diabetes mellitus with hyperglycemia E11.65 ; Diabetic neuropathy E11.40 and Essential hypertension I10 [facility] [address] [place] [address] Dec, Diabetes E11.9 [facility] [address] [place] [address] Dec, [facility] [address], [place] [address] Dec, [facility] [id number] [place] [address] Dec, [facility] [address], [place] [address] Dec, Dental examination Z01.20 [facility] [id number] [place] [address] Dec, [facility] [address], [place] [address] Dec, Diabetes E11.9 [place] [address], [place] [address] Dec, Stage 2 chronic kidney disease N18.2 ; Exposure to hepatitis C Z20.5 ; Obstructive sleep apnea syndrome G47.33 and Type 2 diabetes mellitus with hyperglycemia E11.65 [place] [address], [place] [address] Dec, [facility] [address] [id number] [place] [address] Dec Diabetes E11.9 and Essential hypertension I10 [place] [address], [place] [address] Nov, Diabetes E11.9 [place] [address], [place] [address] Nov, Right foot pain M79.671 [facility] [address] [address] Nov, Right foot pain M79.671 [facility] MAN [address] [id number] [place] [address] Nov Diabetes E11.9 [facility] MAN [address] [id number] [place] [address] Nov Diabetes E11.9 [facility] [address] [id number] [id number] 16 Nov, 2016 Dental examination Z01.20 [facility] MAN [address] [id number] [place] [address] 09 Nov Diabetes E11.9 ; Cocaine abuse F14.10 and Shingles (herpes zoster) polyneuropathy B02.23 [facility] MAN [address] [id number] [place] [address] Nov [facility] [address] [place] [address] October, [facility] [place] [address] [id number] [place] [address] October [facility] [place] [address] [id number] [place] [address] October Unintentional weight loss R63.4 [facility] [place] [address] [id number] [place] [address] October Abscess L02.91 [facility] [place] [address] [id number] [place] [address] October Diabetes E11.9 ; Unintentional weight loss R63.4 ; History of hematuria Z87.448 and Cocaine abuse F14.10 [facility] [place] [address] [id number] [place] [address] October Diabetes E11.9 [facility] [place] [address] [id number] [place] [address] October Essential hypertension I10 and Abscess L02.91 [facility] [place] [address] [id number] [place] [address] Jun [facility] [place] [address] [id number] [place] [address] May Breast cancer screening Z12.39 ; Diabetes E11.9 and Anxiety F41.9 [facility] [place] [address] [facility] [id number] [place] [id number] May, Diabetes E11.9 [facility] [place] [address] [id number] [place] [address] 15 May Diabetes E11.9 and Anemia D64.9 [facility] [place] [address] [id number] [place] [address] 14 May Anxiety F41.9 [facility] [place] [address] [id number] [place] [address] 08 May [facility] [place] [address] [id number] [place] [address] 06 May Dysuria R30.0 [facility] [place] [address] [id number] [place] [address] 06 May [facility] [address] [id number] [place] [address] May Dysuria R30.0 and Vaginal itching L29.8 [facility] [address], [place] [address] Apr, [facility] [address] [id number] [place] [address] Apr Diabetes E11.9 ; Dysuria R30.0 ; Diabetic neuropathy E11.40 ; Anemia D64.9 and Vaginal discharge N89.8 [place] [id number] [place] [address] Jun, [address]00565100[place] [address] Jun, Anemia D64.9 ; Anxiety F41.9 ; Diabetes E11.9 and Diabetic neuropathy E11.40 [address] [id number] [place] [id number] May, [facility] [id number] [place] [address] Apr, [address]00565100[place] [address] Apr, Anemia D64.9 ; Anxiety F41.9 ; Diabetes E11.9 and Diabetic neuropathy E11.[address] [place] [id number] Mar, Acute costochondritis M94.0 [place] [place] [id number] Mar, Bilateral low back pain without sciatica M54.5 and Bereavement Z63.[address] [place] [id number] Mar, Obstructive chronic bronchitis with acute exacerbation J44.1 ; Herpes zoster without complication B02.9 and [place] N91.2 [facility] [address] [facility] [id number] [id number] Mar, [place] [id number] [id number] Mar, [address] [id number] [address] Feb, History of recent traumatic injury of head V15.52 ; Diabetes type 2, uncontrolled 250.02 and Visual disturbance 368.9 [facility] [address] [place] [address] [id number] [address] Feb, History of recent traumatic injury of head V15.52 ; Visual disturbance 368.9 and Diabetes type 2, uncontrolled 250.02 IMMUNIZATIONS No Known Immunizations SOCIAL HISTORY Never Assessed REASON FOR VISIT Medication question PLAN OF CARE VITAL SIGNS MEDICATIONS No [...] infection 2004 Hospitalization History in [facility] 2016 Hospitalization History Stroke 05/2017 Hospitalization History surgeries Hospitalization History Elevated B/S 07/2017 Hospitalization History [facility] - blood clot [facility]RE 10/2017
--- OUTSIDE RECORDS SUMMARY | 2018-05-13 11:02 | XMS REPORT ---
Author Author BARRETT SCHRADER Organization [facility] Address [address] [place] [address] Care Team Providers Care Front Counter Clerk Name Role Phone BARRETT SCHRADER Unavailable PROBLEMS Type Condition ICD9-CM Code [id number] Code Onset Dates Condition Status SNOMED Code Problem Type 2 diabetes mellitus with hyperglycemia E11.65 Active 407070405078751 Problem Sleep apnea in adult G47.30 Active 65660562 Problem Hyperlipidemia, unspecified E78.5 Active 14717184 Problem Abnormal mammogram of right breast R92.8 Active 732939618 Problem Breast asymmetry N64.89 Active 423627172 Problem Moderately severe depression F32.2 Active 346277496 Problem Hypoglycemia associated with type 2 diabetes mellitus E11.649 Active 053243890 Problem Hypoglycemia E16.2 Active 929923028 Problem Cerebrovascular accident (CVA), unspecified mechanism I63.9 Active 355139886 Problem Essential hypertension I10 Active 06326026 Problem Cocaine abuse F14.10 Active 68962988 Problem Diabetic neuropathy E11.40 Active 841289557 Problem Stage 2 chronic kidney disease N18.2 Active 135693264 Problem Anxiety F41.9 Active 37442055 Problem Obstructive sleep apnea syndrome G47.33 Active 91076787 ALLERGIES No Information ENCOUNTERS Encounter Location Date Diagnosis [facility] [place] [address] [id number] [place] [address] Sep Type 2 diabetes mellitus with hyperglycemia E11.65 ; Cocaine abuse F14.10 and Open wound of right great toe, subsequent encounter S91.101D [facility] [address] [id number] [place] [address] Sep [facility] [address] [id number] [place] [address] Aug [facility] [address] [id number] [place] [address] Aug [facility] [place] [address] [id number] [place] [address] Aug Type 2 diabetes mellitus with hyperglycemia E11.65 [facility] [place] [address] [id number] [place] [address] Aug [facility] [address] [facility] [id number] [place] [address] Aug, [facility] [place] [address] [id number] [place] [address] Jul [facility] [place] [address] [id number] [place] [address] Jul Diabetic neuropathy E11.40 ; Essential hypertension I10 and Type 2 diabetes mellitus with hyperglycemia E11.65 [facility] [place] [address] [id number] [place] [address] Jul [facility] [place] [address] [id number] [place] [address] Jul [facility] [place] [address] [id number] [place] [address] Jul [facility] [place] [address] [id number] [place] [address] Jul [facility] [place] [address] [id number] [place] [address] Jul [facility] [place] [address] [id number] [place] [address] Jul Type 2 diabetes mellitus with hyperglycemia E11.65 ; Open wound of right great toe, subsequent encounter S91.101D ; Essential hypertension I10 and Diabetic neuropathy E11.[address] [facility] [address] [id number] [place] [address] Jul, [facility] [place] [address] [id number] [place] [address] Jun [facility] [place] [address] [id number] [place] [address] Jun Type 2 diabetes mellitus with hyperglycemia E11.65 [facility] [place] [address] [id number] [place] [address] Jun [facility] [place] [address] [id number] [place] [address] Jun [facility] [place] [address] [id number] [place] [address] Jun Abnormal mammogram of right breast R92.8 and Breast asymmetry N64.89 [facility] [place] [address] [id number] [place] [address] 15 Jun [facility] [place] [address] [id number] [place] [address] Jun [facility] [place] [address] [id number] [place] [address] May Hypoglycemia E16.2 [facility] [place] [address] [id number] [place] [address] May Abnormal neurological exam R29.90 [facility] [place] [address] [id number] [place] [address] May [facility] [place] [address] [id number] [place] [address] May Type 2 diabetes mellitus with hyperglycemia E11.65 [facility] [place] [address] [id number] [place] [address] May Breast cancer screening Z12.31 and Hematuria, unspecified type R31.9 [facility] [place] [address] [id number] [place] [address] May [facility] [place] [address] [id number] [place] [address] May Type 2 diabetes mellitus with hyperglycemia E11.65 ; Essential hypertension I10 ; Moderately severe depression F32.2 and Confusion R41.0 [facility] [address] [facility] [id number] [place] [address] May, [facility] [place] [address] [id number] [place] [address] May Cerebrovascular accident (CVA), unspecified mechanism I63.9 ; Essential hypertension I10 ; Hyperlipidemia, unspecified E78.5 and Type 2 diabetes mellitus with hyperglycemia E11.65 [facility] [address] [facility] [id number] [place] [address] May, [facility] [address] [facility] [id number] [place] [address] May, [facility] [place] [address] [id number] [place] [address] May [facility] [place] [address] [id number] [place] [address] May Diabetic neuropathy E11.40 and Diabetes E11.9 [facility] [place] [address] [id number] [place] [address] Apr [facility] [place] [address] [id number] [place] [address] Apr Subacute maxillary sinusitis J01.00 ; Hypoglycemia associated with type 2 diabetes mellitus E11.649 and Intractable episodic headache, unspecified headache type R51 [facility] [place] [address] [id number] [place] [address] Apr Diabetic neuropathy E11.40 and Anxiety F41.9 [facility] [place] [address] [id number] [place] [address] Apr [facility] [place] [address] [id number] [place] [address] Apr Type 2 diabetes mellitus with hyperglycemia E11.65 ; Subacute maxillary sinusitis J01.00 ; Diabetic neuropathy E11.40 and Sleep apnea in adult G47.30 [facility] [address] [facility] [id number] [place] [address] Apr, [facility] [place] [address] [id number] [place] [address] Apr [facility] [place] [address] [id number] [place] [address] Apr [facility] [place] [address] [id number] [place] [address] Apr Subacute maxillary sinusitis J01.00 [place] [address], [place] [address] Apr, Right foot drop M21.371 [facility] [place] [address] [id number] [place] [address] Apr [facility] [place] [address] [id number] [place] [address] Mar [facility] [place] [address] [id number] [place] [address] Mar Essential hypertension I10 ; Type 2 diabetes mellitus with hyperglycemia E11.65 ; Encounter for immunization Z23 ; Cocaine abuse F14.10 and Hyperlipidemia, unspecified E78.5 [facility] [place] [address] [id number] [place] [address] Mar [place] [address], [place] [address] Mar, [facility] [place] [address] [id number] [place] [address] Feb [facility] [place] [address] [id number] [place] [address] Feb Type 2 diabetes mellitus with hyperglycemia E11.65 and Acute right ankle pain M25.571 [facility] [place] [address] [id number] [place] [address] Feb Weight loss R63.4 and Anxiety F41.9 [place] [address], [place] [address] Jan, [place] [address], [place] [address] Jan, [place] [address] [place] [address] Jan, [place] [address], [place] [address] Jan, Diabetes E11.9 [facility] [place] [address] [id number] [place] [address] Jan Sprain of right ankle, unspecified ligament, initial encounter S93.401A [facility] MAN [address] [id number] [place] [address] Jan Essential hypertension I10 ; Anxiety F41.9 and Type 2 diabetes mellitus with hyperglycemia E11.65 [facility] [address] [place] [address] Jan, Diabetes E11.9 [facility] [address] [place] [id number] [place] [address] Jan, [facility] [address] [id number] [place] [address] Jan, [facility] MNA [address] [id number] [place] [address] Jan [facility] [id number] [place] [address] Jan, [facility] [id number] [place] [address] Jan, [facility] [id number] [place] [address] Jan, [facility] [id number] [place] [address] Jan, [facility] [address] [place] [address] Jan, Unintentional weight loss R63.4 ; Stage 2 chronic kidney disease N18.2 ; Exposure to hepatitis C Z20.5 ; Diabetic neuropathy E11.40 ; Obstructive sleep apnea syndrome G47.33 ; Essential hypertension I10 and Type 2 diabetes mellitus with hyperglycemia E11.65 [facility] [address] [place] [address] [place] [address] Jan, [facility] [address] [place] [address] [place] [address] Jan, Type 2 diabetes mellitus with hyperglycemia E11.65 ; Diabetic neuropathy E11.40 and Essential hypertension I10 [facility] [address] [id number], [place] [address] Dec, Diabetes E11.9 [facility] [address], [place] [address] Dec, [facility] [address], [place] [address] Dec, [facility] [address] [place] [address] Dec, [facility] [address], [place] [address] Dec, Dental examination Z01.20 [facility] [address], [place] [address] Dec, [facility] [address], [place] [address] Dec, Diabetes E11.9 [facility] [address], [place] [address] Dec, Stage 2 chronic kidney disease N18.2 ; Exposure to hepatitis C Z20.5 ; Obstructive sleep apnea syndrome G47.33 and Type 2 diabetes mellitus with hyperglycemia E11.65 [facility] [address] [id number], [place] [address] Dec, [facility] MAN [address] [id number] [place] [address] Dec Diabetes E11.9 and Essential hypertension I10 [facility] [address] [id number], [place] [address] Nov, Diabetes E11.9 [facility] [address] [id number], [place] [address] Nov, Right foot pain M79.671 [facility] [address] [id number] [address] Nov, Right foot pain M79.671 [facility] MAN [address] [id number] [place] [address] Nov Diabetes E11.9 [facility] [place] [address] [id number] [place] [address] Nov Diabetes E11.9 [facility] [address] [facility] [id number] [place] [address] 16 Nov, 2016 Dental examination Z01.20 [facility] [place] [address] [id number] [place] [address] 09 Nov Diabetes E11.9 ; Cocaine abuse F14.10 and Shingles (herpes zoster) polyneuropathy B02.23 [facility] [place] [address] [id number] [place] [address] Nov [facility] [address] [facility] [id number] [place] [address] October, [facility] [place] [address] [id number] [place] [address] October [facility] [place] [address] [id number] [place] [address] October Unintentional weight loss R63.4 [facility] [place] [address] [id number] [place] [address] October Abscess L02.91 [facility] [place] [address] [id number] [place] [address] October Diabetes E11.9 ; Unintentional weight loss R63.4 ; History of hematuria Z87.448 and Cocaine abuse F14.10 [facility] [place] [address] [id number] [place] [address] October Diabetes E11.9 [facility] [place] [address] [id number] [place] [address] October Essential hypertension I10 and Abscess L02.91 [facility] [place] [address] [id number] [place] [address] Jun [facility] [place] [address] [id number] [place] [address] May Breast cancer screening Z12.39 ; Diabetes E11.9 and Anxiety F41.9 [facility] [address] [facility] [id number] [place] [id number] 16 May, 2016 Diabetes E11.9 [facility] [place] [address] [id number] [place] [address] 15 May Diabetes E11.9 and Anemia D64.9 [facility] [place] [address] [id number] [place] [address] 14 May Anxiety F41.9 [facility] [place] [address] [id number] [place] [address] 08 May [facility] [place] [address] [id number] [place] [address] May Dysuria R30.0 [facility] [place] [address] [id number] [place] [address] May [facility] [place] [address] [id number] [place] [address] May Dysuria R30.0 and Vaginal itching L29.8 [facility] [address] [id number], [place] [address] Apr, [facility] [address] [id number] [place] [address] Apr Diabetes E11.9 ; Dysuria R30.0 ; Diabetic neuropathy E11.40 ; Anemia D64.9 and Vaginal discharge N89.8 [facility] [address], [place] [address] Jun, [place] [id number] [address] Jun, Anemia D64.9 ; Anxiety F41.9 ; Diabetes E11.9 and Diabetic neuropathy E11.40 [address] [address] May, [facility] [address] [id number], [place] [address] Apr, [id number] [place] [id number] Apr, Anemia D64.9 ; Anxiety F41.9 ; Diabetes E11.9 and Diabetic neuropathy E11.40 [place] [id number] [place] [id number] Mar, Acute costochondritis M94.0 [place] [id number] [place] [id number] Mar, Bilateral low back pain without sciatica M54.5 and Bereavement Z63.[address] [id number] Mar, Obstructive chronic bronchitis with acute exacerbation J44.1 ; Herpes zoster without complication B02.9 and [place] N91.2 [place] [id number] [place] [id number] Mar, [place] [id number] [place] [id number] Mar, [place] [id number] [place] [id number] Feb, History of recent traumatic injury of head V15.52 ; Diabetes type 2, uncontrolled 250.02 and Visual disturbance 368.[address]100[place] [address] Feb, History of recent traumatic injury of head V15.52 ; Visual disturbance 368.9 and Diabetes type 2, uncontrolled 250.02 IMMUNIZATIONS No Known Immunizations SOCIAL HISTORY Never Assessed REASON FOR VISIT med refill PLAN OF CARE VITAL SIGNS MEDICATIONS Medication Instructions Dosage Frequency Start Date End Date Duration Status MetFORMIN HCl ER 500 mg Orally 2 times a day 2 tablet 12h 30 days Active RESULTS No Results PROCEDURES [...] infection 2004 Hospitalization History in [facility]hab [facility] [place] 2016 Hospitalization History Stroke 05/2017 Hospitalization History surgeries Hospitalization History Elevated B/S 07/2017
--- OUTSIDE RECORDS SUMMARY | 2018-05-13 11:02 | XMS REPORT ---
Author Author NATALY ALAN Organization [facility] Address [address] [place] [address] Care Team Providers Care Merchandising Consultant Name Role Phone NATALY ALAN Unavailable PROBLEMS Type Condition ICD9-CM Code NVG84-QQ Code Onset Dates Condition Status SNOMED Code Problem Sleep apnea in adult G47.30 Active 40664140 Problem Moderately severe depression F32.2 Active 344249829 Problem Hypoglycemia associated with type 2 diabetes mellitus E11.649 Active 995555144 Problem PVD (peripheral vascular disease) I73.9 Active 257828766 Problem PAD (peripheral artery disease) I73.9 Active 316293455 Problem Hypoglycemia E16.2 Active 335753567 Problem Cerebrovascular accident (CVA), unspecified mechanism I63.9 Active 481846658 Problem Breast asymmetry N64.89 Active 192361578 Problem Abnormal mammogram of right breast R92.8 Active 892871383 Problem Diabetic neuropathy E11.40 Active 089515564 Problem Anxiety F41.9 Active 21252382 Problem Obstructive sleep apnea syndrome G47.33 Active 93314045 Problem Stage 2 chronic kidney disease N18.2 Active 742737281 Problem Essential hypertension I10 Active 17872008 Problem Type 2 diabetes mellitus with hyperglycemia E11.65 Active 547506855789521 Problem Cocaine abuse F14.10 Active 98921528 Problem Hyperlipidemia, unspecified E78.5 Active 85369807 ALLERGIES Substance Reaction Event Type Date Status Phenergan nausea Drug Allergy May, Active Penicillin V Potassium nausea Drug Allergy May, Active Codeine Sulfate itch Drug Allergy May, Active ENCOUNTERS Encounter Location Date Diagnosis [facility] [place] [address] [id number] [place] [address] Nov [facility] [place] [id number] [place] [address] Nov [facility] [address] [id number] [place] [address] 08 Nov PVD (peripheral vascular disease) I73.9 ; Type 2 diabetes mellitus with hyperglycemia E11.65 and PAD (peripheral artery disease) I73.9 [facility] [place] [address] [id number] [place] [address] Nov [facility] [place] [address] [id number] [place] [address] Nov [facility] [place] [address] [id number] [place] [address] Nov [facility] [place] [address] [id number] [place] [address] October [facility] [place] [address] [id number] [place] [address] October [facility] [place] [address] [id number] [place] [address] October Type 2 diabetes mellitus with hyperglycemia E11.65 and Surgical procedure on lower extremity within past 6 months Z98.890 [facility] [place] [address] [id number] [place] [address] October [facility] [place] [address] [id number] [place] [address] October [facility] [address] [facility] [id number] [place] [address] October, [facility] [place] [address] [id number] [place] [address] October Sleep apnea in adult G47.30 [facility] [place] [address] [id number] [place] [address] October Type 2 diabetes mellitus with hyperglycemia E11.65 [facility] [place] [address] [id number] [place] [address] Sep [facility] [place] [address] [id number] [place] [address] Sep Breast asymmetry N64.89 [facility] [place] [address] [id number] [place] [address] Sep [facility] [place] [address] [id number] [place] [address] Sep Type 2 diabetes mellitus with hyperglycemia E11.65 ; Cocaine abuse F14.10 and Open wound of right great toe, subsequent encounter S91.101D [facility] [place] [address] [id number] [place] [address] Sep [facility] [place] [address] [id number] [place] [address] Aug [facility] [place] [address] [id number] [place] [address] Aug [facility] [place] [address] [id number] [place] [address] Aug Type 2 diabetes mellitus with hyperglycemia E11.65 [facility] [place] [address] [id number] [place] [address] Aug [facility] [address] [facility] [id number] [place] [address] Aug, [facility] [place] [address] [id number] [place] [address] Jul [facility] [place] [address] [id number] [place] [address] Jul Diabetic neuropathy E11.40 ; Essential hypertension I10 and Type 2 diabetes mellitus with hyperglycemia E11.65 [facility] [place] [address] [id number] [place] [address] Jul [facility] [place] [address] [id number] [place] [address] Jul [facility] [place] [address] [id number] [place] [address] Jul [facility] [place] [address] [id number] [place] [address] Jul [facility] [place] [address] [id number] [place] [address] Jul [facility] [place] [address] [id number] [place] [address] Jul Type 2 diabetes mellitus with hyperglycemia E11.65 ; Open wound of right great toe, subsequent encounter S91.101D ; Essential hypertension I10 and Diabetic neuropathy E11.[address] [facility] [address] [id number] [place] [address] Jul, [facility] [place] [address] [id number] [place] [address] Jun [facility] [place] [address] [id number] [place] [address] Jun Type 2 diabetes mellitus with hyperglycemia E11.65 [facility] [place] [address] [id number] [place] [address] Jun [facility] [place] [address] [id number] [place] [address] Jun [facility] [place] [address] [id number] [place] [address] Jun Abnormal mammogram of right breast R92.8 and Breast asymmetry N64.89 [facility] [place] [address] [id number] [place] [address] Jun [facility] [place] [address] [id number] [place] [address] Jun [facility] [place] [address] [id number] [place] [address] May Hypoglycemia E16.2 [facility] [place] [address] [id number] [place] [address] May Abnormal neurological exam R29.90 [facility] [place] [address] [id number] [place] [address] May [facility] [place] [address] [id number] [place] [address] May Type 2 diabetes mellitus with hyperglycemia E11.65 [facility] [place] [address] [id number] [place] [address] May Breast cancer screening Z12.31 and Hematuria, unspecified type R31.9 [facility] [place] [address] [id number] [place] [address] May [facility] [address] [id number] [place] [address] May Type 2 diabetes mellitus with hyperglycemia E11.65 ; Essential hypertension I10 ; Moderately severe depression F32.2 and Confusion R41.0 [place] [address] [id number] [place] [address] May, [facility] [place] [address] [id number] [place] [address] May Cerebrovascular accident (CVA), unspecified mechanism I63.9 ; Essential hypertension I10 ; Hyperlipidemia, unspecified E78.5 and Type 2 diabetes mellitus with hyperglycemia E11.65 [address] [place] [address] [id number] [address] May, [place] [address] [id number] [address] May, [facility] [address] [id number] [place] [address] May [facility] [address] [id number] [place] [address] May Diabetic neuropathy E11.40 and Diabetes E11.9 [facility] [address] [id number] [place] [address] Apr [facility] [address] [id number] [place] [address] Apr Subacute maxillary sinusitis J01.00 ; Hypoglycemia associated with type 2 diabetes mellitus E11.649 and Intractable episodic headache, unspecified headache type R51 [facility] [place] [address] [id number] [place] [address] Apr Diabetic neuropathy E11.40 and Anxiety F41.9 [facility] [place] [address] [id number] [place] [address] Apr [facility] [place] [address] [id number] [place] [address] Apr Type 2 diabetes mellitus with hyperglycemia E11.65 ; Subacute maxillary sinusitis J01.00 ; Diabetic neuropathy E11.40 and Sleep apnea in adult G47.30 [facility] [address] [id number] [place] [address] Apr, [facility] [place] [address] [id number] [place] [address] Apr [facility] [place] [address] [id number] [place] [address] Apr [facility] [place] [address] [id number] [place] [address] Apr Subacute maxillary sinusitis J01.00 [address] [place] [address] 53080B00565100[place], [place] [address] Apr, Right foot drop M21.371 [facility] [place] [address] [id number] [place] [address] Apr [facility] [place] [address] [id number] [place] [address] Mar [facility] [place] [address] [id number] [place] [address] Mar Essential hypertension I10 ; Type 2 diabetes mellitus with hyperglycemia E11.65 ; Encounter for immunization Z23 ; Cocaine abuse F14.10 and Hyperlipidemia, unspecified E78.5 [facility] [place] [address] [id number] [place] [address] Mar [address] [id number] [place] [address] Mar, [facility] [place] [address] [id number] [place] [address] Feb [facility] [place] [address] [id number] [place] [address] Feb Type 2 diabetes mellitus with hyperglycemia E11.65 and Acute right ankle pain M25.571 [facility] [place] [address] [id number] [place] [address] Feb Weight loss R63.4 and Anxiety F41.9 [address] [place] [address]00565100[place], [place] [address] Jan, [facility] [address]00565100[place], [place] [address] Jan, [facility] [address]00565100[place], [place] [address] Jan, [facility] [address]00565100[place], [place] [address] Jan, Diabetes E11.9 [facility] [place] [address] [id number] [place] [address] Jan Sprain of right ankle, unspecified ligament, initial encounter S93.401A [facility] [address] [id number] [place] [address] Jan Essential hypertension I10 ; Anxiety F41.9 and Type 2 diabetes mellitus with hyperglycemia E11.65 [facility] [address]00565100[place], [place] [address] Jan, Diabetes E11.9 [facility] [address]00565100[place], [place] [address] Jan, [facility] [address]00565100[place], [place] [address] Jan, [facility] [address] [id number] [place] [address] Jan [facility] [address]65100[place], [place] [address] Jan, [facility] [address] [id number], [place] [address] Jan, [facility] [address]65100[place], [place] [address] Jan, [facility] [address] [id number], [place] [address] Jan, [facility] [address]00565100[place], [place] [address] Jan, Unintentional weight loss R63.4 ; Stage 2 chronic kidney disease N18.2 ; Exposure to hepatitis C Z20.5 ; Diabetic neuropathy E11.40 ; Obstructive sleep apnea syndrome G47.33 ; Essential hypertension I10 and Type 2 diabetes mellitus with hyperglycemia E11.65 [facility] [address]00565100[place], [place] [address] Jan, [facility] [id number] [place] [address] Jan, Type 2 diabetes mellitus with hyperglycemia E11.65 ; Diabetic neuropathy E11.40 and Essential hypertension I10 [facility] [id number] [place] [address] Dec, Diabetes E11.9 [facility] [address] [place] [address] Dec, [facility] [id number] [place] [address] Dec, [facility] [address] [place] [address] Dec, [facility] [id number] [place] [address] Dec, Dental examination Z01.20 [facility] [address]65100[place], [place] [address] Dec, [facility] [address] [place] [address] Dec, Diabetes E11.9 [facility] [address]00565100[place], [place] [address] Dec, Stage 2 chronic kidney disease N18.2 ; Exposure to hepatitis C Z20.5 ; Obstructive sleep apnea syndrome G47.33 and Type 2 diabetes mellitus with hyperglycemia E11.65 [facility] [address]65100[place], [place] [address] Dec, [place] [address] [facility] [id number] [place] [address] Dec Diabetes E11.9 and Essential hypertension I10 [facility] [address] [id number] [address] Nov, Diabetes E11.9 [facility] [address] [id number], [place] [address] Nov, Right foot pain M79.671 [facility] [address] [id number] [address] Nov, Right foot pain M79.671 [facility] [place] [address] [id number] [place] [address] Nov Diabetes E11.9 [facility] [place] [address] [id number] [place] [address] Nov Diabetes E11.9 [facility] [address] [id number] [address] Nov, Dental examination Z01.20 [facility] [place] [address] [id number] [place] [address] Nov Diabetes E11.9 ; Cocaine abuse F14.10 and Shingles (herpes zoster) polyneuropathy B02.23 [facility] [place] [address] [id number] [place] [address] Nov [facility] [address] [facility] [id number] [place] [address] October, [facility] [place] [address] [id number] [place] [address] October [facility] [place] [address] [id number] [place] [address] October Unintentional weight loss R63.4 [facility] [place] [address] [id number] [place] [address] October Abscess L02.91 [facility] [place] [address] [id number] [place] [address] October Diabetes E11.9 ; Unintentional weight loss R63.4 ; History of hematuria Z87.448 and Cocaine abuse F14.10 [facility] [place] [address] [id number] [place] [address] October Diabetes E11.9 [facility] [place] [address] [id number] [place] [address] October Essential hypertension I10 and Abscess L02.91 [facility] [place] [address] [id number] [place] [address] Jun [facility] [place] [address] [id number] [place] [address] May Breast cancer screening Z12.39 ; Diabetes E11.9 and Anxiety F41.9 [facility] [place] [address] [facility] [id number] [place] [address] May, Diabetes E11.9 [facility] [place] [address] [id number] [place] [address] May Diabetes E11.9 and Anemia D64.9 [facility] [place] [address] [id number] [place] [address] May Anxiety F41.9 [facility] [place] [address] [id number] [place] [address] May [facility] [place] [address] [id number] [place] [address] May Dysuria R30.0 [facility] [place] [address] [id number] [place] [address] May [facility] [place] [address] [id number] [place] [address] 05 May Dysuria R30.0 and Vaginal itching L29.8 [facility] [address] [facility] [id number] [place] [address] Apr, [facility] [place] [address] [id number] [place] [address] 14 Apr Diabetes E11.9 ; Dysuria R30.0 ; Diabetic neuropathy E11.40 ; Anemia D64.9 and Vaginal discharge N89.8 [facility] [address]65100[place], [place] [address] Jun, [place] [id number] [place] [id number] Jun, Anemia D64.9 ; Anxiety F41.9 ; Diabetes E11.9 and Diabetic neuropathy E11.40 [place] [id number] [place] [id number] May, [facility] [address]65100[place] [address] Apr, [place] [id number] [place] [id number] Apr, Anemia D64.9 ; Anxiety F41.9 ; Diabetes E11.9 and Diabetic neuropathy E11.40 [address] [address] [place] [id number] Mar, Acute costochondritis M94.[address] [id number] Mar, Bilateral low back pain without sciatica M54.5 and Bereavement Z63.4 [address] [id number] [place] [id number] Mar, Obstructive chronic bronchitis with acute exacerbation J44.1 ; Herpes zoster without complication B02.9 and Clio N91.2 [address] [place] [address] [place] [id number] Mar, [place] [address] [place] [id number] Mar, [address] [id number] Feb, History of recent traumatic injury of head V15.52 ; Diabetes type 2, uncontrolled 250.02 and Visual disturbance 368.9 [address] [address] [place] [id number] Feb, History of recent traumatic injury of head V15.52 ; Visual disturbance 368.9 and Diabetes type 2, uncontrolled 250.02 IMMUNIZATIONS No Known Immunizations SOCIAL HISTORY Never Assessed REASON FOR VISIT Blood sugar problems, Pt states that her Blood Sugar dropped to 34 last night. EMS was called. ROSA Garcia PLAN OF CARE Activity Details Follow Up 1 Week Reason: VITAL SIGNS Height 63.50 in 2017-06-06 Weight 128.1 lbs 2017-06-06 Temperature 98.5 degrees Fahrenheit 2017-06-06 Heart Rate 104 bpm 2017-06-06 Respiratory Rate 18 2017-06-06 BMI 22.33 kg/m2 2017-06-06 Blood pressure systolic 146 mmHg 2017-06-06 Blood pressure diastolic 80 mmHg 2017-06-06 MEDICATIONS Medication Instructions Dosage Frequency Start Date End Date Duration Status Bactrim DS 800-160 MG Orally Twice a day 1 tablet 12h May, Jun, 07 days Active Cephalexin 500 mg Orally every 12 hrs 1 capsule 12h May, 07 days Not-Taking Lisinopril 20 MG Orally Once a day 1 tablet 24h Jan, Active Metformin HCl 850 MG Orally Twice a day 1 tablet with meals 12h May, Active Fluticasone Propionate 50 MCG/ACT Nasally Once a day 1 spray in each nostril 24h 30 day(s) Not-Taking Glucocard Expression Test - subcutaneously 2 times a day as directed Nov, 30 days Active Multi Complete Not-Taking Glucocard Expression Test - as directed Nov, Not- Taking Amlodipine Besylate 10 MG Orally Once a day 1 tablet 24h May, Active Protonix 40 mg Orally Once a day 1 tablet 24h May, 30 day(s) Not-Taking HydrOXYzine HCl 25 MG Orally 2 times a day as needed for anxieyt 1 tablet as needed Feb, 30 day(s) Not-Taking Acetaminophen 325 MG Orally Once a day 1 capsules as needed 24h May, Active NovoLog Flexpen 100 UNIT/ML Subcutaneous 3 times a day 3 units 8h Jan, Not-Taking Ropinirole HCl 1 MG Orally at bedtime 1 tablet 1 to 3 hours before bedtime 30 days Active Aspirin 81 MG Orally Once a day 1 tablet 24h May, Active Tresiba FlexTouch 100 UNIT/ML Subcutaneous at bedtime Inject 10 units Jan, Not-Taking Atorvastatin Calcium 20 mg Orally Once a day 1 tablet 24h May, Active Lisinopril 20 mg Orally Once a day 1 tablet 24h May, 30 day(s) Not-Taking RESULTS No Results PROCEDURES No Known procedures [...] infection 2004 Hospitalization History in rehab at [facility] 2016 Hospitalization History Stroke 05/2017 Hospitalization History surgeries Hospitalization History Elevated B/S 07/2017 Hospitalization History [facility] - blood clot LRE 10/2017 Hospitalization History [facility] - R ankle clot 11/2017
--- OUTSIDE RECORDS SUMMARY | 2018-05-13 11:02 | XMS REPORT ---
Author Author CHRIS BECKWITH [facility] Address [address] [place] [address] Care Team Providers Care Plate Stacker Name Role Phone CHRIS BECKWITH Unavailable PROBLEMS Type Condition ICD9-CM Code NUD06-XW Code Onset Dates Condition Status SNOMED Code Problem Anxiety F41.9 Active 86155124 Problem Diabetic neuropathy E11.40 Active 355093214 Problem Hyperlipidemia, unspecified E78.5 Active 57227346 Problem Type 2 diabetes mellitus with hyperglycemia E11.65 Active 617189746711426 Problem Cocaine abuse F14.10 Active 13329462 Problem Essential hypertension I10 Active 99481537 Problem Obstructive sleep apnea syndrome G47.33 Active 48746907 Problem Stage 2 chronic kidney disease N18.2 Active 577048656 ALLERGIES No Information SOCIAL HISTORY Never Assessed [...] infection 2004 Hospitalization History in rehab at [place] [address]
--- OUTSIDE RECORDS SUMMARY | 2018-05-13 11:03 | XMS REPORT ---
Author Author CHRIS BECKWITH [facility] Address [address] [place] [address] Care Team Providers Care Bander And Cellophaner Helper Machine Name Role Phone CHRIS BECKWITH Unavailable PROBLEMS Type Condition ICD9-CM Code BXO67-IX Code Onset Dates Condition Status SNOMED Code Problem Type 2 diabetes mellitus with hyperglycemia E11.65 Active [id number] Problem Sleep apnea in adult G47.30 Active 26022645 Problem Hyperlipidemia, unspecified E78.5 Active 67548413 Problem Abnormal mammogram of right breast R92.8 Active 114758636 Problem Breast asymmetry N64.89 Active 470417833 Problem Moderately severe depression F32.2 Active 378349553 Problem Hypoglycemia associated with type 2 diabetes mellitus E11.649 Active 995780052 Problem Hypoglycemia E16.2 Active 478523055 Problem Cerebrovascular accident (CVA), unspecified mechanism I63.9 Active 814783753 Problem Essential hypertension I10 Active 41225823 Problem Cocaine abuse F14.10 Active 12658997 Problem Diabetic neuropathy E11.40 Active 558223584 Problem Stage 2 chronic kidney disease N18.2 Active 282189570 Problem Anxiety F41.9 Active 87978935 Problem Obstructive sleep apnea syndrome G47.33 Active 94047149 ALLERGIES No Information ENCOUNTERS Encounter Location Date Diagnosis [facility] [place] [address] [id number] [place] [address] Aug [facility] [place] [address] [id number] [place] [address] Aug [facility] [place] [address] [id number] [place] [address] Aug Type 2 diabetes mellitus with hyperglycemia E11.65 [facility] [address] [id number] [place] [address] Aug [facility] [address] [facility] [id number] [place] [address] Aug, [facility] [place] [address] [id number] [place] [address] Jul [facility] [place] [address] [id number] [place] [address] Jul Diabetic neuropathy E11.40 ; Essential hypertension I10 and Type 2 diabetes mellitus with hyperglycemia E11.65 [facility] [place] [address] [id number] [place] [address] Jul [facility] [place] [address] [id number] [place] [address] Jul [facility] [place] [address] [id number] [place] [address] Jul [facility] [place] [address] [id number] [place] [address] Jul [facility] [place] [address] [id number] [place] [address] Jul [facility] [place] [address] [id number] [place] [address] Jul Type 2 diabetes mellitus with hyperglycemia E11.65 ; Open wound of right great toe, subsequent encounter S91.101D ; Essential hypertension I10 and Diabetic neuropathy E11.40 [facility] [address] [id number] [place] [id number] Jul, [facility] [place] [address] [id number] [place] [address] Jun [facility] [place] [address] [id number] [place] [address] Jun Type 2 diabetes mellitus with hyperglycemia E11.65 [facility] [place] [address] [id number] [place] [address] Jun [facility] [place] [address] [id number] [place] [address] Jun [facility] [place] [address] [id number] [place] [address] Jun Abnormal mammogram of right breast R92.8 and Breast asymmetry N64.89 [facility] [place] [address] [id number] [place] [address] Jun [facility] [place] [address] [id number] [place] [address] Jun [facility] [place] [address] [id number] [place] [address] May Hypoglycemia E16.2 [facility] [place] [address] [id number] [place] [address] May Abnormal neurological exam R29.90 [facility] [place] [address] [id number] [place] [address] May [facility] [place] [address] [id number] [place] [address] May Type 2 diabetes mellitus with hyperglycemia E11.65 [facility] [place] [address] [id number] [place] [address] May Breast cancer screening Z12.31 and Hematuria, unspecified type R31.9 [facility] [place] [address] [id number] [place] [address] May [facility] [place] [address] [id number] [place] [address] May Type 2 diabetes mellitus with hyperglycemia E11.65 ; Essential hypertension I10 ; Moderately severe depression F32.2 and Confusion R41.0 [place] [address] [id number] [address] May, [facility] [place] [address] [id number] [place] [address] May Cerebrovascular accident (CVA), unspecified mechanism I63.9 ; Essential hypertension I10 ; Hyperlipidemia, unspecified E78.5 and Type 2 diabetes mellitus with hyperglycemia E11.65 [place] [address] [id number] [place] [address] May, [place] [address] [id number] [address] May, [facility] [place] [address] [id number] [place] [address] May [facility] [place] [address] [id number] [place] [address] May Diabetic neuropathy E11.40 and Diabetes E11.9 [facility] [place] [address] [id number] [place] [address] Apr [facility] [place] [address] [id number] [place] [address] Apr Subacute maxillary sinusitis J01.00 ; Hypoglycemia associated with type 2 diabetes mellitus E11.649 and Intractable episodic headache, unspecified headache type R51 [facility] [place] [address] [id number] [place] [address] Apr Diabetic neuropathy E11.40 and Anxiety F41.9 [facility] [place] [address] [id number] [place] [address] Apr [facility] [place] [address] [id number] [place] [address] Apr Type 2 diabetes mellitus with hyperglycemia E11.65 ; Subacute maxillary sinusitis J01.00 ; Diabetic neuropathy E11.40 and Sleep apnea in adult G47.30 [place] [address] [id number] [place] [address] Apr, [facility] [place] [address] [id number] [place] [address] Apr [facility] [place] [address] [id number] [place] [address] Apr [facility] [place] [address] [id number] [place] [address] Apr Subacute maxillary sinusitis J01.00 [place] [address] [id number] [place] [address] Apr, Right foot drop M21.371 [facility] [place] [address] [id number] [place] [address] Apr [facility] [place] [address] [id number] [place] [address] Mar [facility] [place] [address] [id number] [place] [address] Mar Essential hypertension I10 ; Type 2 diabetes mellitus with hyperglycemia E11.65 ; Encounter for immunization Z23 ; Cocaine abuse F14.10 and Hyperlipidemia, unspecified E78.5 [facility] [place] [address] [id number] [place] [address] Mar [facility] [address]00565100[place] [address] Mar, [facility] [place] [address] [id number] [place] [address] Feb [facility] [place] [address] [id number] [place] [address] Feb Type 2 diabetes mellitus with hyperglycemia E11.65 and Acute right ankle pain M25.571 [facility] [place] [address] [id number] [place] [address] Feb Weight loss R63.4 and Anxiety F41.9 [place] [address]65[address] [address] Jan, [facility] [id number] [place] [address] Jan, [facility] [id number] [place] [address] Jan, [facility] [address] [place] [address] Jan, Diabetes E11.9 [facility] [place] [address] [id number] [place] [address] Jan Sprain of right ankle, unspecified ligament, initial encounter S93.401A [facility] [place] [address] [id number] [place] [address] Jan Essential hypertension I10 ; Anxiety F41.9 and Type 2 diabetes mellitus with hyperglycemia E11.65 [facility] [address]00565100[place], [place] [address] Jan, Diabetes E11.9 [facility] [address]65100[place], [place] [address] Jan, [facility] [address]65100[place], [place] [address] Jan, [address] [id number] [place] [address] Jan [facility] [address]65100[place], [place] [address] Jan, [facility] [address]65100[place], [place] [address] Jan, [facility] [address]00565100[place], [place] [address] Jan, [facility] [address]65100[place], [place] [address] Jan, [facility] [address]65100[place], [place] [address] Jan, Unintentional weight loss R63.4 ; Stage 2 chronic kidney disease N18.2 ; Exposure to hepatitis C Z20.5 ; Diabetic neuropathy E11.40 ; Obstructive sleep apnea syndrome G47.33 ; Essential hypertension I10 and Type 2 diabetes mellitus with hyperglycemia E11.65 [facility] [address]65100[place], [place] [address] Jan, [facility] [address]100[place], [place] [address] Jan, Type 2 diabetes mellitus with hyperglycemia E11.65 ; Diabetic neuropathy E11.40 and Essential hypertension I10 [facility] [address]65100[place] [address] Dec, Diabetes E11.9 [facility] [address] [id number], [place] [address] Dec, [facility] [address]65100[place], [place] [address] Dec, [facility] [address]65[address], [place] [address] Dec, [facility] [address]65100[place], [place] [address] Dec, Dental examination Z01.20 [facility] [address]00565100[place], [place] [address] Dec, [facility] [address] [place] [address] Dec, Diabetes E11.9 [place] [address] [place] [address] Dec, Stage 2 chronic kidney disease N18.2 ; Exposure to hepatitis C Z20.5 ; Obstructive sleep apnea syndrome G47.33 and Type 2 diabetes mellitus with hyperglycemia E11.65 [facility] [address]00565100[place], [place] [address] Dec, [facility] MAN [address] [id number] [place] [address] Dec Diabetes E11.9 and Essential hypertension I10 [facility] [address]65[address] [address] Nov, Diabetes E11.9 [facility] [address] [id number], [place] [address] Nov, Right foot pain M79.671 [facility] [id number] [address] Nov, Right foot pain M79.671 [facility] MAN [address] [id number] [place] [address] Nov Diabetes E11.9 [facility] MAN [address] [id number] [place] [address] [facility] [id number] [address] Nov, Dental examination Z01.20 [facility] [place] [address] [id number] [place] [address] 09 Nov Diabetes E11.9 ; Cocaine abuse F14.10 and Shingles (herpes zoster) polyneuropathy B02.23 [facility] [place] [address] [id number] [place] [address] Nov [facility] [address] [facility] [id number] [place] [address] October, [facility] [place] [address] [id number] [place] [address] October [facility] [place] [address] [id number] [place] [address] October Unintentional weight loss R63.4 [facility] [place] [address] [id number] [place] [address] October Abscess L02.91 [facility] [place] [address] [id number] [place] [address] October Diabetes E11.9 ; Unintentional weight loss R63.4 ; History of hematuria Z87.448 and Cocaine abuse F14.10 [facility] [place] [address] [id number] [place] [address] October Diabetes E11.9 [facility] [place] [address] [id number] [place] [address] October Essential hypertension I10 and Abscess L02.91 [facility] [place] [address] [id number] [place] [address] Jun [facility] [place] [address] [id number] [place] [address] May Breast cancer screening Z12.39 ; Diabetes E11.9 and Anxiety F41.9 [facility] [address] [id number] [place] [id number] May, Diabetes E11.9 [facility] [place] [address] [id number] [place] [address] May Diabetes E11.9 and Anemia D64.9 [facility] [place] [address] [id number] [place] [address] 14 May Anxiety F41.9 [facility] [place] [address] [id number] [place] [address] 08 May [facility] [place] [address] [id number] [place] [address] 06 May Dysuria R30.0 [facility] [place] [address] [id number] [place] [address] May [facility] [place] [address] [id number] [place] [address] 05 May Dysuria R30.0 and Vaginal itching L29.8 [place] [address] [place] [address] Apr, [facility] [place] [address] [id number] [place] [address] 14 Apr Diabetes E11.9 ; Dysuria R30.0 ; Diabetic neuropathy E11.40 ; Anemia D64.9 and Vaginal discharge N89.8 [place] [address]100[place] [address] Jun, [place] [id number] [place] [id number] Jun, Anemia D64.9 ; Anxiety F41.9 ; Diabetes E11.9 and Diabetic neuropathy E11.[address] [place] [id number] May, [facility] [address] [place] [address] Apr, [place] [id number] [place] [id number] Apr, Anemia D64.9 ; Anxiety F41.9 ; Diabetes E11.9 and Diabetic neuropathy E11.[address] [place] [id number] Mar, Acute costochondritis M94.0 [address]65100[place] [id number] 15 Mar, 2015 Bilateral low back pain without sciatica M54.5 and Bereavement Z63.[address]00565100[place] [id number] 14 Mar, 2015 Obstructive chronic bronchitis with acute exacerbation J44.1 ; Herpes zoster without complication B02.9 and [place] N91.2 [address]00565100[place] [address] Mar, [address]00565100[place] [id number] Mar, [address]00565100[place] [id number] 24 Feb, 2015 History of recent traumatic injury of head V15.52 ; Diabetes type 2, uncontrolled 250.02 and Visual disturbance 368.9 [place] [id number] [id number] Feb, History of recent traumatic injury of head V15.52 ; Visual disturbance 368.9 and Diabetes type 2, uncontrolled 250.02 IMMUNIZATIONS No Known Immunizations SOCIAL HISTORY Never Assessed REASON FOR VISIT med change PLAN OF CARE VITAL SIGNS MEDICATIONS Medication Instructions Dosage Frequency Start Date End Date Duration Status Levemir FlexTouch 100 UNIT/ML Subcutaneous Once a day 15 units 24h Nov, 30 days Active Lantus 100 unit/ml Subcutaneous Once a day at night 15 units Active RESULTS No Results PROCEDURES No Known [...] infection 2004 Hospitalization History in rehab at [facility] 2016 Hospitalization History Stroke 05/2017 Hospitalization History surgeries Hospitalization History Elevated B/S 07/2017
--- OUTSIDE RECORDS SUMMARY | 2018-05-13 11:03 | XMS REPORT ---
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 Name Role Phone CHRIS BECKWITH Unavailable PROBLEMS Type Condition ICD9-CM Code QMY97-HD Code Onset Dates Condition Status SNOMED Code Problem Sleep apnea in adult G47.30 Active 42195800 Problem Moderately severe depression F32.2 Active 347441296 Problem Hypoglycemia associated with type 2 diabetes mellitus E11.649 Active 439567992 Problem PVD (peripheral vascular disease) I73.9 Active 437872079 Problem PAD (peripheral artery disease) I73.9 Active 817287664 Problem Hypoglycemia E16.2 Active 372519488 Problem Cerebrovascular accident (CVA), unspecified mechanism I63.9 Active 888066352 Problem Breast asymmetry N64.89 Active 014369133 Problem Abnormal mammogram of right breast R92.8 Active 912903558 Problem Diabetic neuropathy E11.40 Active 855536736 Problem Anxiety F41.9 Active 88094858 Problem Obstructive sleep apnea syndrome G47.33 Active 86902003 Problem Stage 2 chronic kidney disease N18.2 Active 479689095 Problem Essential hypertension I10 Active 77635911 Problem Type 2 diabetes mellitus with hyperglycemia E11.65 Active 969701353251193 Problem Cocaine abuse F14.10 Active 12070608 Problem Hyperlipidemia, unspecified E78.5 Active 02690268 ALLERGIES Substance Reaction Event Type Date Status Phenergan nausea Drug Allergy May, Active Penicillin V Potassium nausea Drug Allergy May, Active Codeine Sulfate itch Drug Allergy May, Active ENCOUNTERS Encounter Location Date Diagnosis [facility] [place] [address] [id number] [place] [address] Nov [facility] [place] [address] [id number] [place] [address] Nov [facility] [address] [id number] [place] [address] 08 Nov PVD (peripheral vascular disease) I73.9 ; Type 2 diabetes mellitus with hyperglycemia E11.65 and PAD (peripheral artery disease) I73.9 [facility] [place] [address] [id number] [place] [address] Nov [facility] [place] [address] [id number] [place] [address] Nov [facility] [place] [address] [id number] [place] [address] Nov [facility] [place] [address] [id number] [place] [address] October [facility] [place] [address] [id number] [place] [address] October [facility] [place] [address] [id number] [place] [address] October Type 2 diabetes mellitus with hyperglycemia E11.65 and Surgical procedure on lower extremity within past 6 months Z98.890 [facility] [place] [address] [id number] [place] [address] October [facility] [place] [address] [id number] [place] [address] October [facility] [address] [facility] [id number] [place] [address] October, [facility] [place] [address] [id number] [place] [address] October Sleep apnea in adult G47.30 [facility] [place] [address] [id number] [place] [address] October Type 2 diabetes mellitus with hyperglycemia E11.65 [facility] [place] [address] [id number] [place] [address] Sep [facility] [place] [address] [id number] [place] [address] Sep Breast asymmetry N64.89 [facility] [place] [address] [id number] [place] [address] Sep [facility] [place] [address] [id number] [place] [address] Sep Type 2 diabetes mellitus with hyperglycemia E11.65 ; Cocaine abuse F14.10 and Open wound of right great toe, subsequent encounter S91.101D [facility] [place] [address] [id number] [place] [address] Sep [facility] [place] [address] [id number] [place] [address] Aug [facility] [place] [address] [id number] [place] [address] Aug [facility] [place] [address] [id number] [place] [address] Aug Type 2 diabetes mellitus with hyperglycemia E11.65 [facility] [place] [address] [id number] [place] [address] Aug [facility] [address] [facility] [id number] [place] [address] Aug, [facility] [place] [address] [id number] [place] [address] Jul [facility] [place] [address] [id number] [place] [address] Jul Diabetic neuropathy E11.40 ; Essential hypertension I10 and Type 2 diabetes mellitus with hyperglycemia E11.65 [facility] [place] [address] [id number] [place] [address] Jul [facility] [place] [address] [id number] [place] [address] Jul [facility] [place] [address] [id number] [place] [address] Jul [facility] [place] [address] [id number] [place] [address] Jul [facility] [place] [address] [id number] [place] [address] Jul [facility] [place] [address] [id number] [place] [address] Jul Type 2 diabetes mellitus with hyperglycemia E11.65 ; Open wound of right great toe, subsequent encounter S91.101D ; Essential hypertension I10 and Diabetic neuropathy E11.[address] [facility] [address] [id number] [place] [address] Jul, [facility] [place] [address] [id number] [place] [address] Jun [facility] [place] [address] [id number] [place] [address] Jun Type 2 diabetes mellitus with hyperglycemia E11.65 [facility] [place] [address] [id number] [place] [address] Jun [facility] [place] [address] [id number] [place] [address] Jun [facility] [place] [address] [id number] [place] [address] Jun Abnormal mammogram of right breast R92.8 and Breast asymmetry N64.89 [facility] [place] [address] [id number] [place] [address] Jun [facility] [place] [address] [id number] [place] [address] Jun [facility] [place] [address] [id number] [place] [address] May Hypoglycemia E16.2 [facility] [place] [address] [id number] [place] [address] May Abnormal neurological exam R29.90 [facility] [place] [address] [id number] [place] [address] May [facility] [place] [address] [id number] [place] [address] May Type 2 diabetes mellitus with hyperglycemia E11.65 [facility] [place] [address] [id number] [place] [address] May Breast cancer screening Z12.31 and Hematuria, unspecified type R31.9 [facility] [place] [address] [id number] [place] [address] May [facility] [address] [id number] [place] [address] May Type 2 diabetes mellitus with hyperglycemia E11.65 ; Essential hypertension I10 ; Moderately severe depression F32.2 and Confusion R41.0 [place] [address] [facility] [id number] [place] [address] May, [facility] [place] [address] [id number] [place] [address] May Cerebrovascular accident (CVA), unspecified mechanism I63.9 ; Essential hypertension I10 ; Hyperlipidemia, unspecified E78.5 and Type 2 diabetes mellitus with hyperglycemia E11.65 [place] [id number] [address] May, [place] [address] [id number] [address] May, [facility] [address] [id number] [place] [address] May [facility] [address] [id number] [place] [address] May Diabetic neuropathy E11.40 and Diabetes E11.9 [facility] [address] [id number] [place] [address] Apr [facility] [address] [id number] [place] [address] Apr Subacute maxillary sinusitis J01.00 ; Hypoglycemia associated with type 2 diabetes mellitus E11.649 and Intractable episodic headache, unspecified headache type R51 [facility] [place] [address] [id number] [place] [address] Apr Diabetic neuropathy E11.40 and Anxiety F41.9 [facility]stage [place] [address] [id number] [place] [address] Apr [facility] [place] [address] [id number] [place] [address] Apr Type 2 diabetes mellitus with hyperglycemia E11.65 ; Subacute maxillary sinusitis J01.00 ; Diabetic neuropathy E11.40 and Sleep apnea in adult G47.30 [facility] [address] [id number] [place] [address] Apr, [facility] [place] [address] [id number] [place] [address] Apr [facility] [place] [address] [id number] [place] [address] Apr [facility] [place] [address] [id number] [place] [address] Apr Subacute maxillary sinusitis J01.00 [place] [address] [id number] [address] Apr, Right foot drop M21.371 [facility] [place] [address] [id number] [place] [address] Apr [facility] [place] [address] [id number] [place] [address] Mar [facility] [place] [address] [id number] [place] [address] Mar Essential hypertension I10 ; Type 2 diabetes mellitus with hyperglycemia E11.65 ; Encounter for immunization Z23 ; Cocaine abuse F14.10 and Hyperlipidemia, unspecified E78.5 [facility] [place] [address] [id number] [place] [address] Mar [place] [address] [id number] [place] [address] Mar, [facility] [place] [address] [id number] [place] [address] Feb [facility] [place] [address] [id number] [place] [address] Feb Type 2 diabetes mellitus with hyperglycemia E11.65 and Acute right ankle pain M25.571 [facility] [place] [address] [id number] [place] [address] Feb Weight loss R63.4 and Anxiety F41.9 [place] [address]65100[place] [address] Jan, [facility] [address] [id number] [address] Jan, [facility] [address]65100[place] [address] Jan, [facility] [address]65100[place] [address] Jan, Diabetes E11.9 [facility] [place] [address] [id number] [place] [address] Jan Sprain of right ankle, unspecified ligament, initial encounter S93.401A [facility] [place] [address] [id number] [place] [address] Jan Essential hypertension I10 ; Anxiety F41.9 and Type 2 diabetes mellitus with hyperglycemia E11.65 [facility] [address]65100[place] [address] Jan, Diabetes E11.9 [facility] [address]65100[place] [address] Jan, [facility] [address]65100[place], [place] [address] Jan, [facility] [address] [id number] [place] [address] Jan [facility] [address]65100[place] [address] Jan, [facility] [address] [id number] [address] Jan, [facility] [address]65100[place] [address] Jan, [facility] [address] [id number] [address] Jan, [facility] [address]65100[place] [address] Jan, Unintentional weight loss R63.4 ; Stage 2 chronic kidney disease N18.2 ; Exposure to hepatitis C Z20.5 ; Diabetic neuropathy E11.40 ; Obstructive sleep apnea syndrome G47.33 ; Essential hypertension I10 and Type 2 diabetes mellitus with hyperglycemia E11.65 [facility] [address]65100[place] [address] Jan, [facility] [id number] [place] [address] Jan, Type 2 diabetes mellitus with hyperglycemia E11.65 ; Diabetic neuropathy E11.40 and Essential hypertension I10 [facility] [id number] [place] [address] Dec, Diabetes E11.9 [facility] [address] [place] [address] Dec, [facility] [id number] [place] [address] Dec, [facility] [address] [place] [address] Dec, [facility] [id number] [place] [address] Dec, Dental examination Z01.20 [facility] [address]65100[place] [address] Dec, [facility] [address] [place] [address] Dec, Diabetes E11.9 [facility] [address]65100[place] [address] Dec, Stage 2 chronic kidney disease N18.2 ; Exposure to hepatitis C Z20.5 ; Obstructive sleep apnea syndrome G47.33 and Type 2 diabetes mellitus with hyperglycemia E11.65 [facility] [address]65100[place] [address] Dec, [facility] [place] [address] [id number] [place] [address] Dec Diabetes E11.9 and Essential hypertension I10 [facility] [address] [id number] [address] Nov, Diabetes E11.9 [facility] [address] [id number] [address] Nov, Right foot pain M79.671 [facility] [address] [id number] [address] Nov, Right foot pain M79.671 [facility] [place] [address] [id number] [place] [address] Nov Diabetes E11.9 [facility] [place] [address] [id number] [place] [address] Nov Diabetes E11.9 [facility] [address] [id number] [address] Nov, Dental examination Z01.20 [facility]ENTERHuddleApp[facility] [address] [id number] [place] [address] Nov Diabetes E11.9 ; Cocaine abuse F14.10 and Shingles (herpes zoster) polyneuropathy B02.23 [facility] [place] [address] [id number] [place] [address] Nov [facility] [address] [facility] [id number] [place] [address] October, [facility] [place] [address] [id number] [place] [address] October [facility] SERVICESSECav[facility] [place] [address] [id number] [place] [address] October Unintentional weight loss R63.4 [facility] [place] [address] [id number] [place] [address] October Abscess L02.91 [facility] [place] [address] [id number] [place] [address] October Diabetes E11.9 ; Unintentional weight loss R63.4 ; History of hematuria Z87.448 and Cocaine abuse F14.10 [facility] [place] [address] [id number] [place] [address] October Diabetes E11.9 [facility] [place] [address] [id number] [place] [address] October Essential hypertension I10 and Abscess L02.91 [facility] [place] [address] [id number] [place] [address] Jun [facility] [place] [address] [id number] [place] [address] May Breast cancer screening Z12.39 ; Diabetes E11.9 and Anxiety F41.9 [facility] [place] [address] [facility] [id number] [place] [id number] May, Diabetes E11.9 [facility] [place] [address] [id number] [place] [address] May Diabetes E11.9 and Anemia D64.9 [facility] [place] [address] [id number] [place] [address] May Anxiety F41.9 [facility] [place] [address] [id number] [place] [address] May [facility] [place] [address] [id number] [place] [address] May Dysuria R30.0 [facility] [place] [address] [id number] [place] [address] May [facility] [place] [address] [id number] [place] [address] May Dysuria R30.0 and Vaginal itching L29.8 [facility] [address] [id number] [place] [address] Apr, [facility] [place] [address] [id number] [place] [address] 14 Apr Diabetes E11.9 ; Dysuria R30.0 ; Diabetic neuropathy E11.40 ; Anemia D64.9 and Vaginal discharge N89.8 [facility] [address] [address] Jun, [place] [id number] [place] [id number] Jun, Anemia D64.9 ; Anxiety F41.9 ; Diabetes E11.9 and Diabetic neuropathy E11.40 [place] [id number] [place] [id number] May, [facility] [id number] [place] [id number] Apr, [place] [address] [place] [id number] Apr, Anemia D64.9 ; Anxiety F41.9 ; Diabetes E11.9 and Diabetic neuropathy E11.40 [place] [address] [place] [id number] Mar, Acute costochondritis M94.[address] [id number] Mar, Bilateral low back pain without sciatica M54.5 and Bereavement Z63.4 [place] [address] [place] [id number] Mar, Obstructive chronic bronchitis with acute exacerbation J44.1 ; Herpes zoster without complication B02.9 and Devol N91.2 [place] [address] [place] [id number] Mar, [place] [address] [place] [id number] Mar, [address] [id number] Feb, History of recent traumatic injury of head V15.52 ; Diabetes type 2, uncontrolled 250.02 and Visual disturbance 368.9 [place] [address] [place] [id number] Feb, History of recent traumatic injury of head V15.52 ; Visual disturbance 368.9 and Diabetes type 2, uncontrolled 250.02 IMMUNIZATIONS No Known Immunizations SOCIAL HISTORY Never Assessed REASON FOR VISIT Hospital follow up. TERRANCE childs PLAN OF CARE Activity Details Follow Up 2 Weeks Reason:dm f/u VITAL SIGNS Height 63.50 in 2017-05-22 Weight 118.5 lbs 2017-05-22 Temperature 97.9 degrees Fahrenheit 2017-05-22 Heart Rate 102 bpm 2017-05-22 Respiratory Rate 18 2017-05-22 BMI 20.66 kg/m2 2017-05-22 Blood pressure systolic 132 mmHg 2017-05-22 Blood pressure diastolic 80 mmHg 2017-05-22 MEDICATIONS Medication Instructions Dosage Frequency Start Date End Date Duration Status Protonix 40 mg Orally Once a day 1 tablet 24h May, 30 day(s) Active Amlodipine Besylate 10 MG Orally Once a day 1 tablet 24h May, Active Cephalexin 500 mg Orally every 12 hrs 1 capsule 12h May, 07 days Active Atorvastatin Calcium 20 mg Orally Once a day 1 tablet 24h May, Active Ropinirole HCl 1 MG Orally at bedtime 1 tablet 1 to 3 hours before bedtime 30 days Not-Taking Glimepiride 4 MG Orally Once a day 1 tablet with breakfast or the first main meal of the day 24h Apr, Active NovoLog Flexpen 100 UNIT/ML Subcutaneous 3 times a day 3 units 8h Jan, Not-Taking Multi Complete Not-Taking Lisinopril 20 MG Orally Once a day 1 tablet 24h Jan, Active Fluticasone Propionate 50 MCG/ACT Nasally Once a day 1 spray in each nostril 24h 30 day(s) Not-Taking HydrOXYzine HCl 25 MG Orally 2 times a day as needed for anxieyt 1 tablet as needed Feb, 30 day(s) Not-Taking Acetaminophen 325 MG Orally 2 times a day 1 capsules as needed 12h May, 30 days Active Tresiba FlexTouch 100 UNIT/ML Subcutaneous at bedtime Inject 10 units Jan, Not-Taking Aspirin 81 MG Orally Once a day 1 tablet 24h May, Active Metformin HCl 850 MG Orally Twice a day 1 tablet with meals 12h May, Active Lisinopril 20 mg Orally Once a day 1 tablet 24h May, 30 day(s) Not-Taking Glucocard Expression Test - subcutaneously 2 times a day as directed Nov, 30 days Active Glucocard Expression Test - as directed Nov, Not- Taking RESULTS Name Result Date Reference Range GLUCOSE FINGERSTICK (IN HOUSE) 2017-05-22 GLU FINGERSTICK 224 PC Lot # [id number] Exp date 08/2016 URINE DRUG SCREEN (IN HOUSE) 2017-05-22 Lot # [id number] Exp date 04/2018 Control + COCAINE negative AMPH negative MTD negative THC negative OPIATE negative BENZO negative PCP negative BAR negative OXY negative MAMP negative TCA negative BUP MDMA negative PROCEDURES Procedure Date Ordered Result Body Site GLUCOSE BLOOD TEST May 22, 2017 DRUG TEST PRSMV DIR OPT OBS May 22, 2017 INSTRUCTIONS MEDICATIONS ADMINISTERED No Known Medications [...] infection 2004 Hospitalization History in rehab at [place] 2016 Hospitalization History Stroke 05/2017 Hospitalization History surgeries Hospitalization History Elevated B/S 07/2017 Hospitalization History [facility] - blood clot LRE 10/2017 Hospitalization History [facility] - R ankle clot 11/2017
--- OUTSIDE RECORDS SUMMARY | 2018-05-13 11:03 | XMS REPORT ---
Author Author CHRIS BECKWITH [facility] Address [address] [place] [address] Care Team Providers Care Youth Care Specialist Name Role Phone CHRIS BECKWITH Unavailable PROBLEMS Type Condition ICD9-CM Code QJO00-HG Code Onset Dates Condition Status SNOMED Code Problem Type 2 diabetes mellitus with hyperglycemia E11.65 Active 073208921821397 Problem Sleep apnea in adult G47.30 Active 37153898 Problem Hyperlipidemia, unspecified E78.5 Active 30908717 Problem Abnormal mammogram of right breast R92.8 Active 263462989 Problem Breast asymmetry N64.89 Active 780596205 Problem Moderately severe depression F32.2 Active 930773362 Problem Hypoglycemia associated with type 2 diabetes mellitus E11.649 Active 419292234 Problem Hypoglycemia E16.2 Active 874871545 Problem Cerebrovascular accident (CVA), unspecified mechanism I63.9 Active 465247272 Problem Essential hypertension I10 Active 33351715 Problem Cocaine abuse F14.10 Active 34891200 Problem Diabetic neuropathy E11.40 Active 371062917 Problem Stage 2 chronic kidney disease N18.2 Active 691291224 Problem Anxiety F41.9 Active 83392836 Problem Obstructive sleep apnea syndrome G47.33 Active 50995178 ALLERGIES Substance Reaction Event Type Date Status Phenergan nausea Drug Allergy Jan, Active Penicillin V Potassium nausea Drug Allergy Jan, Active Codeine Sulfate itch Drug Allergy Jan, Active ENCOUNTERS Encounter Location Date Diagnosis [facility] [address] [id number] [place] [address] Sep Type 2 diabetes mellitus with hyperglycemia E11.65 ; Cocaine abuse F14.10 and Open wound of right great toe, subsequent encounter S91.101D [facility] [address] [id number] [place] [address] Sep [facility] [address] [id number] [place] [address] Aug [facility] [place] [address] [id number] [place] [address] Aug [facility] [place] [address] [id number] [place] [address] Aug Type 2 diabetes mellitus with hyperglycemia E11.65 [facility] [place] [address] [id number] [place] [address] Aug [facility] [address] [facility] [id number] [place] [address] Aug, [facility] [place] [address] [id number] [place] [address] Jul [facility] [place] [address] [id number] [place] [address] Jul Diabetic neuropathy E11.40 ; Essential hypertension I10 and Type 2 diabetes mellitus with hyperglycemia E11.65 [facility] [place] [address] [id number] [place] [address] Jul [facility] [place] [address] [id number] [place] [address] Jul [facility] [place] [address] [id number] [place] [address] Jul [facility] [place] [address] [id number] [place] [address] Jul [facility] [place] [address] [id number] [place] [address] Jul [facility] [place] [address] [id number] [place] [address] Jul Type 2 diabetes mellitus with hyperglycemia E11.65 ; Open wound of right great toe, subsequent encounter S91.101D ; Essential hypertension I10 and Diabetic neuropathy E11.[address] [facility] [address] [id number] [place] [address] Jul, [facility] [place] [address] [id number] [place] [address] Jun [facility] [place] [address] [id number] [place] [address] Jun Type 2 diabetes mellitus with hyperglycemia E11.65 [facility] [place] [address] [id number] [place] [address] Jun [facility] [place] [address] [id number] [place] [address] Jun [facility] [place] [address] [id number] [place] [address] Jun Abnormal mammogram of right breast R92.8 and Breast asymmetry N64.89 [facility] [place] [address] [id number] [place] [address] 15 Jun [facility] [place] [address] [id number] [place] [address] Jun [facility] [place] [address] [id number] [place] [address] May Hypoglycemia E16.2 [facility] [place] [address] [id number] [place] [address] May Abnormal neurological exam R29.90 [facility] [place] [address] [id number] [place] [address] May [facility] [place] [address] [id number] [place] [address] May Type 2 diabetes mellitus with hyperglycemia E11.65 [facility] [place] [address] [id number] [place] [address] May Breast cancer screening Z12.31 and Hematuria, unspecified type R31.9 [facility] [place] [address] [id number] [place] [address] May [facility] [place] [address] [id number] [place] [address] May Type 2 diabetes mellitus with hyperglycemia E11.65 ; Essential hypertension I10 ; Moderately severe depression F32.2 and Confusion R41.0 [facility] [address] [facility] [id number] [place] [address] May, [facility] [place] [address] [id number] [place] [address] May Cerebrovascular accident (CVA), unspecified mechanism I63.9 ; Essential hypertension I10 ; Hyperlipidemia, unspecified E78.5 and Type 2 diabetes mellitus with hyperglycemia E11.65 [place] [address] [address] May, [place] [address] [place] [address] [id number] [address] May, [facility] [place] [address] [id number] [place] [address] May [facility] [place] [address] [id number] [place] [address] May Diabetic neuropathy E11.40 and Diabetes E11.9 [facility] [place] [address] [id number] [place] [address] Apr [facility] [place] [address] [id number] [place] [address] Apr Subacute maxillary sinusitis J01.00 ; Hypoglycemia associated with type 2 diabetes mellitus E11.649 and Intractable episodic headache, unspecified headache type R51 [facility] [place] [address] [id number] [place] [address] Apr Diabetic neuropathy E11.40 and Anxiety F41.9 [facility] [place] [address] [id number] [place] [address] Apr [facility] [place] [address] [id number] [place] [address] Apr Type 2 diabetes mellitus with hyperglycemia E11.65 ; Subacute maxillary sinusitis J01.00 ; Diabetic neuropathy E11.40 and Sleep apnea in adult G47.30 [place] [address] [id number] [place] [address] Apr, [facility] [place] [address] [id number] [place] [address] Apr [facility] [place] [address] [id number] [place] [address] Apr [facility] [place] [address] [id number] [place] [address] Apr Subacute maxillary sinusitis J01.00 [facility] [id number] [place] [address] Apr, Right foot drop M21.371 [facility] [place] [address] [id number] [place] [address] Apr [facility] [place] [address] [id number] [place] [address] Mar [facility] [place] [address] [id number] [place] [address] Mar Essential hypertension I10 ; Type 2 diabetes mellitus with hyperglycemia E11.65 ; Encounter for immunization Z23 ; Cocaine abuse F14.10 and Hyperlipidemia, unspecified E78.5 [facility] MAN [address] [id number] [place] [address] Mar [facility] [address]005[address]100[place], [place] [address] Mar, [facility] [place] [address] [id number] [place] [address] Feb [facility] [place] [address] [id number] [place] [address] Feb Type 2 diabetes mellitus with hyperglycemia E11.65 and Acute right ankle pain M25.571 [facility] [place] [address] [id number] [place] [address] Feb Weight loss R63.4 and Anxiety F41.9 [facility] [address] 3010265100[place], [place] [address] Jan, [facility] [address] [place] [address] Jan, [facility] [address] [place] [address] Jan, [place] [address] [place] [address] Jan, Diabetes E11.9 [facility] MAN [address] [id number] [place] [address] Jan Sprain of right ankle, unspecified ligament, initial encounter S93.401A [facility] [address] [id number] [place] [address] Jan Essential hypertension I10 ; Anxiety F41.9 and Type 2 diabetes mellitus with hyperglycemia E11.65 [facility] [address] [place] [address] Jan, Diabetes E11.9 [facility] [address] [place] [address] Jan, [facility] [address] [place] [address] Jan, [facility] MAN [address] [id number] [place] [address] Jan [facility] [address] [place] [address] Jan, [facility] [address] [place] [address] Jan, [facility] [address] [place] [address] Jan, [facility] [address]00565100[place], [place] [address] Jan, [facility] [address] [place] [address] Jan, Unintentional weight loss R63.4 ; Stage 2 chronic kidney disease N18.2 ; Exposure to hepatitis C Z20.5 ; Diabetic neuropathy E11.40 ; Obstructive sleep apnea syndrome G47.33 ; Essential hypertension I10 and Type 2 diabetes mellitus with hyperglycemia E11.65 [facility] [address]00565100[place], [place] [address] Jan, [facility] [address] 3010265100[place], [place] [address] Jan, Type 2 diabetes mellitus with hyperglycemia E11.65 ; Diabetic neuropathy E11.40 and Essential hypertension I10 [facility] [address]100[place], [place] [address] Dec, Diabetes E11.9 [facility] [address], [place] [address] Dec, [facility] [address] [place] [address] Dec, [facility] [address] [place] [address] Dec, [facility] [address]00565100[place], [place] [address] Dec, Dental examination Z01.20 [facility] [address] [place] [address] Dec, [facility] [address]100[place], [place] [address] Dec, Diabetes E11.9 [facility] [address] [place] [address] Dec, Stage 2 chronic kidney disease N18.2 ; Exposure to hepatitis C Z20.5 ; Obstructive sleep apnea syndrome G47.33 and Type 2 diabetes mellitus with hyperglycemia E11.65 [facility] [address], [place] [address] Dec, [facility] [place] [address] [id number] [place] [address] Dec Diabetes E11.9 and Essential hypertension I10 [facility] [address]65100[place], [place] [address] Nov, Diabetes E11.9 [facility] [address], [place] [address] Nov, Right foot pain M79.671 [place] [id number] [place] [address] Nov, Right foot pain M79.671 [facility] [place] [address] [id number] [place] [address] Nov Diabetes E11.9 [facility] [place] [address] [id number] [place] [address] Nov Diabetes E11.9 [facility] [address] [facility] [id number] [place] [address] 16 Nov, 2016 Dental examination Z01.20 [facility] [place] [address] [id number] [place] [address] 09 Nov Diabetes E11.9 ; Cocaine abuse F14.10 and Shingles (herpes zoster) polyneuropathy B02.23 [facility] [place] [address] [id number] [place] [address] Nov [facility] [address] [facility] [id number] [place] [address] October, [facility] [place] [address] [id number] [place] [address] October [facility] [place] [address] [id number] [place] [address] October Unintentional weight loss R63.4 [facility] [place] [address] [id number] [place] [address] October Abscess L02.91 [facility] [place] [address] [id number] [place] [address] October Diabetes E11.9 ; Unintentional weight loss R63.4 ; History of hematuria Z87.448 and Cocaine abuse F14.10 [facility] [place] [address] [id number] [place] [address] October Diabetes E11.9 [facility] [place] [address] [id number] [place] [address] October Essential hypertension I10 and Abscess L02.91 [facility] [place] [address] [id number] [place] [address] Jun [facility] [place] [address] [id number] [place] [address] May Breast cancer screening Z12.39 ; Diabetes E11.9 and Anxiety F41.9 [place] [id number] [address] May, Diabetes E11.9 [facility] [place] [address] [id number] [place] [address] 15 May Diabetes E11.9 and Anemia D64.9 [facility] [place] [address] [id number] [place] [address] 14 May Anxiety F41.9 [facility] [place] [address] [id number] [place] [address] May [facility] [place] [address] [id number] [place] [address] May Dysuria R30.0 [facility] [place] [address] [id number] [place] [address] May [facility] [place] [address] [id number] [place] [address] 05 May Dysuria R30.0 and Vaginal itching L29.8 [facility] [address] [id number], [place] [address] Apr, [facility] [place] [address] [id number] [place] [address] Apr Diabetes E11.9 ; Dysuria R30.0 ; Diabetic neuropathy E11.40 ; Anemia D64.9 and Vaginal discharge N89.8 [facility] [address] [id number], [place] [address] Jun, [place] [id number] [address] Jun, Anemia D64.9 ; Anxiety F41.9 ; Diabetes E11.9 and Diabetic neuropathy E11.40 [place] [id number] [address] May, [facility] [address]100[place] [address] Apr, [place] [id number] [place] [id number] Apr, Anemia D64.9 ; Anxiety F41.9 ; Diabetes E11.9 and Diabetic neuropathy E11.40 [place] [address] [place] [id number] Mar, Acute costochondritis M94.0 [place] [address] [place] [id number] Mar, Bilateral low back pain without sciatica M54.5 and Bereavement Z63.4 [place] [address] [place] [id number] Mar, Obstructive chronic bronchitis with acute exacerbation J44.1 ; Herpes zoster without complication B02.9 and Rector N91.2 [address]00565100[place] [id number] Mar, [place] 8858365100[place] [phone] Mar, [address]00565100[place] [address] Feb, History of recent traumatic injury of head V15.52 ; Diabetes type 2, uncontrolled 250.02 and Visual disturbance 368.9 [address]00565100[place] [address] Feb, History of recent traumatic injury of head V15.52 ; Visual disturbance 368.9 and Diabetes type 2, uncontrolled 250.02 IMMUNIZATIONS No Known Immunizations SOCIAL HISTORY Never Assessed REASON FOR VISIT swollen ankle, Pt broke Rt ankle 2014, now having pain cant apply pressure. , Went to er in [place] 12/12/2016. ROSA Garcia PLAN OF CARE Activity Details Follow Up prn Reason: VITAL SIGNS Height 63.50 in 2017-01-30 Weight 119.8 lbs 2017-01-30 Temperature 98.1 degrees Fahrenheit 2017-01-30 Heart Rate 96 bpm 2017-01-30 Respiratory Rate 18 2017-01-30 BMI 20.89 kg/m2 2017-01-30 Blood pressure systolic 130 mmHg 2017-01-30 Blood pressure diastolic 82 mmHg 2017-01-30 MEDICATIONS Medication Instructions Dosage Frequency Start Date End Date Duration Status Glucocard Expression Test - subcutaneously 2 times a day as directed Nov, 30 days Active Pen [place] 31G X 6 MM as directed 24h Apr, 30 days Active Glucocard Expression Test - as directed 12h Nov, Active NovoLog Flexpen 100 UNIT/ML Subcutaneous 3 times a day 3 units 8h Jan, Active Ropinirole HCl 1 MG Orally at bedtime 1 tablet 1 to 3 hours before bedtime 30 days Active Simvastatin 40 mg Orally Once a day 1 tablet in the evening 24h 30 days Active Ibuprofen 800 MG Orally Three times a day 1 tablet with food or milk 8h Dec, 20 days Active Lisinopril 20 MG Orally Once a day 1 tablet 24h Jan, 30 day(s) Active MetFORMIN HCl ER 500 mg Orally 2 times a day 2 tablet 12h 30 days Active Multi Complete Active Tresiba FlexTouch 100 UNIT/ML Subcutaneous at bedtime Inject 10 units Jan, Active Neurontin 300 MG Orally Once a day 1 capsule 24h Jan, 30 day(s ) Active RESULTS No Results PROCEDURES No Known [...] infection 2005 Hospitalization History in rehab at [place] 2016 Hospitalization History Stroke 05/2017 Hospitalization History surgeries Hospitalization History Elevated B/S 07/2017
--- OUTSIDE RECORDS SUMMARY | 2018-05-13 11:04 | XMS REPORT ---
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 Civil Geotechnical Engineer Name Role Phone CHRIS BECKWITH Unavailable PROBLEMS Type Condition ICD9-CM Code TCW31-LM Code Onset Dates Condition Status SNOMED Code Problem Sleep apnea in adult G47.30 Active 17229103 Problem Moderately severe depression F32.2 Active 753379268 Problem Hypoglycemia associated with type 2 diabetes mellitus E11.649 Active 962417881 Problem PVD (peripheral vascular disease) I73.9 Active 867639381 Problem PAD (peripheral artery disease) I73.9 Active 557905759 Problem Hypoglycemia E16.2 Active 710211685 Problem Cerebrovascular accident (CVA), unspecified mechanism I63.9 Active 870873447 Problem Breast asymmetry N64.89 Active 427704669 Problem Abnormal mammogram of right breast R92.8 Active 542604153 Problem Diabetic neuropathy E11.40 Active 865655158 Problem Anxiety F41.9 Active 73930688 Problem Obstructive sleep apnea syndrome G47.33 Active 12113118 Problem Stage 2 chronic kidney disease N18.2 Active 048979691 Problem Essential hypertension I10 Active 01271340 Problem Type 2 diabetes mellitus with hyperglycemia E11.65 Active 265839190028297 Problem Cocaine abuse F14.10 Active 29299452 Problem Hyperlipidemia, unspecified E78.5 Active 63808792 ALLERGIES Substance Reaction Event Type Date Status Phenergan nausea Drug Allergy May, Active Penicillin V Potassium nausea Drug Allergy May, Active Codeine Sulfate itch Drug Allergy May, Active ENCOUNTERS Encounter Location Date Diagnosis [facility] [place] [address] [id number] [place] [address] Nov [facility] [place] [address] [id number] [place] [address] Nov [facility] [address] [id number] [place] [address] 08 Nov PVD (peripheral vascular disease) I73.9 ; Type 2 diabetes mellitus with hyperglycemia E11.65 and PAD (peripheral artery disease) I73.9 [facility] [place] [address] [id number] [place] [address] Nov [facility] [place] [address] [id number] [place] [address] Nov [facility] [place] [address] [id number] [place] [address] Nov [facility] [place] [address] [id number] [place] [address] October [facility] [place] [address] [id number] [place] [address] October [facility] [place] [address] [id number] [place] [address] October Type 2 diabetes mellitus with hyperglycemia E11.65 and Surgical procedure on lower extremity within past 6 months Z98.890 [facility] [place] [address] [id number] [place] [address] October [facility] [place] [address] [id number] [place] [address] October [facility] [address] [facility] [id number] [place] [address] October, [facility] [place] [address] [id number] [place] [address] October Sleep apnea in adult G47.30 [facility] [place] [address] [id number] [place] [address] October Type 2 diabetes mellitus with hyperglycemia E11.65 [facility] [place] [address] [id number] [place] [address] Sep [facility] [place] [address] [id number] [place] [address] Sep Breast asymmetry N64.89 [facility] [place] [address] [id number] [place] [address] Sep [facility] [place] [address] [id number] [place] [address] Sep Type 2 diabetes mellitus with hyperglycemia E11.65 ; Cocaine abuse F14.10 and Open wound of right great toe, subsequent encounter S91.101D [facility] [place] [address] [id number] [place] [address] Sep [facility] [place] [address] [id number] [place] [address] Aug [facility] [place] [address] [id number] [place] [address] Aug [facility] [place] [address] [id number] [place] [address] Aug Type 2 diabetes mellitus with hyperglycemia E11.65 [facility] [place] [address] [id number] [place] [address] Aug [facility] [address] [facility] [id number] [place] [address] Aug, [facility] [place] [address] [id number] [place] [address] Jul [facility] [place] [address] [id number] [place] [address] Jul Diabetic neuropathy E11.40 ; Essential hypertension I10 and Type 2 diabetes mellitus with hyperglycemia E11.65 [facility] [place] [address] [id number] [place] [address] Jul [facility] [place] [address] [id number] [place] [address] Jul [facility] [place] [address] [id number] [place] [address] Jul [facility] [place] [address] [id number] [place] [address] Jul [facility] [place] [address] [id number] [place] [address] Jul [facility] [place] [address] [id number] [place] [address] Jul Type 2 diabetes mellitus with hyperglycemia E11.65 ; Open wound of right great toe, subsequent encounter S91.101D ; Essential hypertension I10 and Diabetic neuropathy E11.[address] [facility] [address] [id number] [place] [address] Jul, [facility] [place] [address] [id number] [place] [address] Jun [facility] [place] [address] [id number] [place] [address] Jun Type 2 diabetes mellitus with hyperglycemia E11.65 [facility] [place] [address] [id number] [place] [address] Jun [facility] [place] [address] [id number] [place] [address] Jun [facility] [place] [address] [id number] [place] [address] Jun Abnormal mammogram of right breast R92.8 and Breast asymmetry N64.89 [facility] [place] [address] [id number] [place] [address] Jun [facility] [place] [address] [id number] [place] [address] Jun [facility] [place] [address] [id number] [place] [address] May Hypoglycemia E16.2 [facility] [place] [address] [id number] [place] [address] May Abnormal neurological exam R29.90 [facility] [place] [address] [id number] [place] [address] May [facility] [place] [address] [id number] [place] [address] May Type 2 diabetes mellitus with hyperglycemia E11.65 [facility] [place] [address] [id number] [place] [address] May Breast cancer screening Z12.31 and Hematuria, unspecified type R31.9 [facility] [place] [address] [id number] [place] [address] May [facility] [address] [id number] [place] [address] May Type 2 diabetes mellitus with hyperglycemia E11.65 ; Essential hypertension I10 ; Moderately severe depression F32.2 and Confusion R41.0 [place] [address] [facility] [id number] [place] [address] May, [facility] [place] [address] [id number] [place] [address] May Cerebrovascular accident (CVA), unspecified mechanism I63.9 ; Essential hypertension I10 ; Hyperlipidemia, unspecified E78.5 and Type 2 diabetes mellitus with hyperglycemia E11.65 [place] [address] [place] [address] [id number] [address] May, [place] [address] [id number] [address] May, [facility] [address] [id number] [place] [address] May [facility] [address] [id number] [place] [address] May Diabetic neuropathy E11.40 and Diabetes E11.9 [facility] [address] [id number] [place] [address] Apr [facility] [address] [id number] [place] [address] Apr Subacute maxillary sinusitis J01.00 ; Hypoglycemia associated with type 2 diabetes mellitus E11.649 and Intractable episodic headache, unspecified headache type R51 [facility] [place] [address] [id number] [place] [address] Apr Diabetic neuropathy E11.40 and Anxiety F41.9 [facility] [place] [address] [id number] [place] [address] Apr [facility] [place] [address] [id number] [place] [address] Apr Type 2 diabetes mellitus with hyperglycemia E11.65 ; Subacute maxillary sinusitis J01.00 ; Diabetic neuropathy E11.40 and Sleep apnea in adult G47.30 [facility] [address] [id number] [address] Apr, [facility] [place] [address] [id number] [place] [address] Apr [facility] [place] [address] [id number] [place] [address] Apr [facility] [place] [address] [id number] [place] [address] Apr Subacute maxillary sinusitis J01.00 [place] [address] [id number] [address] Apr, Right foot drop M21.371 [facility] [place] [address] [id number] [place] [address] Apr [facility] [place] [address] [id number] [place] [address] Mar [facility] [place] [address] [id number] [place] [address] Mar Essential hypertension I10 ; Type 2 diabetes mellitus with hyperglycemia E11.65 ; Encounter for immunization Z23 ; Cocaine abuse F14.10 and Hyperlipidemia, unspecified E78.5 [facility] [place] [address] [id number] [place] [address] Mar [place] [address] [id number] [place] [address] Mar, [facility] [place] [address] [id number] [place] [address] Feb [facility] [place] [address] [id number] [place] [address] Feb Type 2 diabetes mellitus with hyperglycemia E11.65 and Acute right ankle pain M25.571 [facility] [place] [address] [id number] [place] [address] Feb Weight loss R63.4 and Anxiety F41.9 [place] [address]005[address] [address] Jan, [facility] [address] [id number], [place] [address] Jan, [facility] [address]005[address]100[place], [place] [address] Jan, [facility] [address]005[address]100[place], [place] [address] Jan, Diabetes E11.9 [facility] [address] [id number] [place] [address] Jan Sprain of right ankle, unspecified ligament, initial encounter S93.401A [facility] [place] [address] [id number] [place] [address] Jan Essential hypertension I10 ; Anxiety F41.9 and Type 2 diabetes mellitus with hyperglycemia E11.65 [facility] [address]005[address], [place] [address] Jan, Diabetes E11.9 [facility] [address]005[address]100[place], [place] [address] Jan, [facility] [address]005[address]100[place], [place] [address] Jan, [facility] [address] [id number] [place] [address] Jan [facility] [address]005[address], [place] [address] Jan, [facility] [address] [id number] [address] Jan, [facility] [address], [place] [address] Jan, [facility] [address] [id number] [address] Jan, [facility] [address]00565100[place], [place] [address] Jan, Unintentional weight loss R63.4 ; Stage 2 chronic kidney disease N18.2 ; Exposure to hepatitis C Z20.5 ; Diabetic neuropathy E11.40 ; Obstructive sleep apnea syndrome G47.33 ; Essential hypertension I10 and Type 2 diabetes mellitus with hyperglycemia E11.65 [facility] [address]005[address]100[place], [place] [address] Jan, [facility] [id number] [place] [address] Jan, Type 2 diabetes mellitus with hyperglycemia E11.65 ; Diabetic neuropathy E11.40 and Essential hypertension I10 [facility] [id number] [place] [address] Dec, Diabetes E11.9 [facility] [address] [place] [address] Dec, [facility] [id number] [place] [address] Dec, [facility] [address] [place] [address] Dec, [facility] [id number] [place] [address] Dec, Dental examination Z01.20 [facility] [address]005[address]100[place], [place] [address] Dec, [facility] [address] [place] [address] Dec, Diabetes E11.9 [facility] [address]100[place], [place] [address] Dec, Stage 2 chronic kidney disease N18.2 ; Exposure to hepatitis C Z20.5 ; Obstructive sleep apnea syndrome G47.33 and Type 2 diabetes mellitus with hyperglycemia E11.65 [facility] [address], [place] [address] Dec, [facility] [place] [address] [id number] [place] [address] Dec Diabetes E11.9 and Essential hypertension I10 [facility] [address] [id number], [place] [address] Nov, Diabetes E11.9 [facility] [address] [id number], [place] [address] Nov, Right foot pain M79.671 [facility] [address] [id number] [address] Nov, Right foot pain M79.671 [facility] [place] [address] [id number] [place] [address] Nov Diabetes E11.9 [facility] [place] [address] [id number] [place] [address] Nov Diabetes E11.9 [facility] [address] [id number] [address] Nov, Dental examination Z01.20 [facility] [address] [id number] [place] [address] Nov Diabetes E11.9 ; Cocaine abuse F14.10 and Shingles (herpes zoster) polyneuropathy B02.23 [facility] [place] [address] [id number] [place] [address] Nov [facility] [address] [facility] [id number] [place] [address] October, [facility] [place] [address] [id number] [place] [address] October [facility] [place] [address] [id number] [place] [address] October Unintentional weight loss R63.4 [facility] [place] [address] [id number] [place] [address] October Abscess L02.91 [facility] [place] [address] [id number] [place] [address] October Diabetes E11.9 ; Unintentional weight loss R63.4 ; History of hematuria Z87.448 and Cocaine abuse F14.10 [facility] [place] [address] [id number] [place] [address] October Diabetes E11.9 [facility] [place] [address] [id number] [place] [address] October Essential hypertension I10 and Abscess L02.91 [facility] [place] [address] [id number] [place] [address] Jun [facility] [place] [address] [id number] [place] [address] May Breast cancer screening Z12.39 ; Diabetes E11.9 and Anxiety F41.9 [facility] [place] [address] [facility] [id number] [place] [id number] May, Diabetes E11.9 [facility] [place] [address] [id number] [place] [address] May Diabetes E11.9 and Anemia D64.9 [facility] [place] [address] [id number] [place] [address] May Anxiety F41.9 [facility] [place] [address] [id number] [place] [address] May [facility] [place] [address] [id number] [place] [address] May Dysuria R30.0 [facility] [place] [address] [id number] [place] [address] May [facility] [place] [address] [id number] [place] [address] May Dysuria R30.0 and Vaginal itching L29.8 [facility] [address] [id number] [address] Apr, [facility] [place] [address] [id number] [place] [address] 14 Apr Diabetes E11.9 ; Dysuria R30.0 ; Diabetic neuropathy E11.40 ; Anemia D64.9 and Vaginal discharge N89.8 [facility] [address] [address] Jun, [place] [id number] [place] [id number] Jun, Anemia D64.9 ; Anxiety F41.9 ; Diabetes E11.9 and Diabetic neuropathy E11.40 [place] [id number] [place] [id number] May, [facility] [id number] [place] [address] Apr, [place] [id number] [place] [id number] Apr, Anemia D64.9 ; Anxiety F41.9 ; Diabetes E11.9 and Diabetic neuropathy E11.40 [place] [id number] [place] [id number] Mar, Acute costochondritis M94.[address] [id number] Mar, Bilateral low back pain without sciatica M54.5 and Bereavement Z63.4 [place] [id number] [place] [id number] Mar, Obstructive chronic bronchitis with acute exacerbation J44.1 ; Herpes zoster without complication B02.9 and [place] N91.2 [place] [id number] [place] [id number] Mar, [place] [id number] [place] [id number] Mar, [address] [id number] Feb, History of recent traumatic injury of head V15.52 ; Diabetes type 2, uncontrolled 250.02 and Visual disturbance 368.9 [place] [id number] [place] [id number] Feb, History of recent traumatic injury of head V15.52 ; Visual disturbance 368.9 and Diabetes type 2, uncontrolled 250.02 IMMUNIZATIONS No Known Immunizations SOCIAL HISTORY Never Assessed REASON FOR VISIT Breast exam. ROSA Garcia PLAN OF CARE Activity Details Follow Up 1 Year Reason:WWE VITAL SIGNS Height 63.50 in 2017-05-28 Weight 119.1 lbs 2017-05-28 Temperature 98.6 degrees Fahrenheit 2017-05-28 Heart Rate 90 bpm 2017-05-28 Respiratory Rate 18 2017-05-28 BMI 20.76 kg/m2 2017-05-28 Blood pressure systolic 150 mmHg 2017-05-28 Blood pressure diastolic 80 mmHg 2017-05-28 MEDICATIONS Medication Instructions Dosage Frequency Start Date End Date Duration Status Lisinopril 20 MG Orally Once a day 1 tablet 24h Jan, Active HydrOXYzine HCl 25 MG Orally 2 times a day as needed for anxieyt 1 tablet as needed Feb, 30 day(s) Not-Taking Cephalexin 500 mg Orally every 12 hrs 1 capsule 12h May, 07 days Active Metformin HCl 850 MG Orally Twice a day 1 tablet with meals 12h May, Active Amlodipine Besylate 10 MG Orally Once a day 1 tablet 24h May, Active Glucocard Expression Test - subcutaneously 2 times a day as directed 12h Nov, 30 days Active Tresiba FlexTouch 100 UNIT/ML Subcutaneous at bedtime Inject 10 units Jan, Not-Taking Multi Complete Not-Taking Glimepiride 4 MG Orally Once a day 1 tablet with breakfast or the first main meal of the day 24h Apr, Active Fluticasone Propionate 50 MCG/ACT Nasally Once a day 1 spray in each nostril 24h 30 day(s) Not-Taking Ropinirole HCl 1 MG Orally at bedtime 1 tablet 1 to 3 hours before bedtime 30 days Not-Taking Acetaminophen 325 MG Orally 2 times a day 1 capsules as needed 12h May, 30 days Active Lisinopril 20 mg Orally Once a day 1 tablet 24h May, 30 day(s) Not-Taking Atorvastatin Calcium 20 mg Orally Once a day 1 tablet 24h May, Active Aspirin 81 MG Orally Once a day 1 tablet 24h May, Active NovoLog Flexpen 100 UNIT/ML Subcutaneous 3 times a day 3 units 8h Jan, Not-Taking Protonix 40 mg Orally Once a day 1 tablet 24h 04 May, 2017 30 day(s) Active Glucocard Expression Test - as directed 12h Nov, Not- Taking RESULTS No Results PROCEDURES Procedure Date Ordered Result Body Site URINALYSIS, AUTO, W/O SCOPE May 28, 2017 URINE CULTURE/COLONY COUNT May 28, 2017 INSTRUCTIONS MEDICATIONS ADMINISTERED No Known Medications [...] infection 2004 Hospitalization History in rehab at [place] 2016 Hospitalization History Stroke 05/2017 Hospitalization History surgeries Hospitalization History Elevated B/S 07/2017 Hospitalization History [facility] - blood clot LRE 10/2017 Hospitalization History [facility] - R ankle clot 11/2017
--- OUTSIDE RECORDS SUMMARY | 2018-05-13 11:04 | XMS REPORT ---
Author Author CHRIS BECKWITH [facility] Address [address] [place] [address] Care Team Providers Care Infusion Pharmacist Name Role Phone CHRIS BECKWITH Unavailable PROBLEMS Type Condition ICD9-CM Code LRI06-KZ Code Onset Dates Condition Status SNOMED Code Problem Anxiety F41.9 Active 38703228 Problem Diabetic neuropathy E11.40 Active 296676982 Problem Hyperlipidemia, unspecified E78.5 Active 02773240 Problem Type 2 diabetes mellitus with hyperglycemia E11.65 Active 553282390922744 Problem Cocaine abuse F14.10 Active 89120112 Problem Essential hypertension I10 Active 01796195 Problem Obstructive sleep apnea syndrome G47.33 Active 77017218 Problem Stage 2 chronic kidney disease N18.2 Active 664224291 ALLERGIES No Information SOCIAL HISTORY Never Assessed PLAN OF CARE VITAL SIGNS MEDICATIONS Medication Instructions Dosage Frequency Start Date End Date Duration Status Clindamycin HCl 300 MG Orally 2 times a day 1 capsule 12h October, October, 5 day(s) Active RESULTS No Results PROCEDURES No Known procedures IMMUNIZATIONS No Known Immunizations MEDICAL (GENERAL) HISTORY Type Description Date Medical History Diabetes Medical History hypertension Medical History hyperlipidemia Medical History neuropathy Surgical History Hysterectomy 1998 Surgical History cyst on left breast removed Hospitalization History high blood glucose and kidney infection 2004 Hospitalization History in rehab at [place] [address]
--- OUTSIDE RECORDS SUMMARY | 2018-05-13 11:04 | XMS REPORT ---
Author Author CHRIS BECKWITH [facility] Address [address] [place] [address] Care Team Providers Care Principal Java Developer Name Role Phone CHRIS BECKWITH Unavailable PROBLEMS Type Condition ICD9-CM Code [id number] Code Onset Dates Condition Status SNOMED Code Problem Sleep apnea in adult G47.30 Active 16013897 Problem Moderately severe depression F32.2 Active 328187880 Problem Hypoglycemia associated with type 2 diabetes mellitus E11.649 Active 660980746 Problem PVD (peripheral vascular disease) I73.9 Active 219443631 Problem PAD (peripheral artery disease) I73.9 Active 902404077 Problem Hypoglycemia E16.2 Active 802222549 Problem Cerebrovascular accident (CVA), unspecified mechanism I63.9 Active 361038310 Problem Breast asymmetry N64.89 Active 685444408 Problem Abnormal mammogram of right breast R92.8 Active 869814643 Problem Diabetic neuropathy E11.40 Active 064782227 Problem Anxiety F41.9 Active 08959717 Problem Obstructive sleep apnea syndrome G47.33 Active 72294658 Problem Stage 2 chronic kidney disease N18.2 Active 780221547 Problem Essential hypertension I10 Active 19426056 Problem Type 2 diabetes mellitus with hyperglycemia E11.65 Active 675568088151194 Problem Cocaine abuse F14.10 Active 00798215 Problem Hyperlipidemia, unspecified E78.5 Active 66511467 ALLERGIES No Information ENCOUNTERS Encounter Location Date Diagnosis [facility] [address] [id number] [place] [address] [facility] [address] [id number] [place] [address] Nov [facility] [address] [id number] [place] [address] Nov PVD (peripheral vascular disease) I73.9 ; Type 2 diabetes mellitus with hyperglycemia E11.65 and PAD (peripheral artery disease) I73.9 [facility] [place] [address] [id number] [place] [address] Nov [facility] [place] [address] [id number] [place] [address] Nov [facility] [place] [address] [id number] [place] [address] Nov [facility] [place] [address] [id number] [place] [address] October [facility] [place] [address] [id number] [place] [address] October [facility] [place] [address] [id number] [place] [address] October Type 2 diabetes mellitus with hyperglycemia E11.65 and Surgical procedure on lower extremity within past 6 months Z98.890 [facility] [place] [address] [id number] [place] [address] October [facility] [place] [address] [id number] [place] [address] October [facility] [address] [facility] [id number] [place] [address] October, [facility] [place] [address] [id number] [place] [address] October Sleep apnea in adult G47.30 [facility] [place] [address] [id number] [place] [address] October Type 2 diabetes mellitus with hyperglycemia E11.65 [facility] [place] [address] [id number] [place] [address] Sep [facility] [place] [address] [id number] [place] [address] Sep Breast asymmetry N64.89 [facility] [place] [address] [id number] [place] [address] Sep [facility] [place] [address] [id number] [place] [address] Sep Type 2 diabetes mellitus with hyperglycemia E11.65 ; Cocaine abuse F14.10 and Open wound of right great toe, subsequent encounter S91.101D [facility] [place] [address] [id number] [place] [address] Sep [facility] [place] [address] [id number] [place] [address] Aug [facility] [place] [address] [id number] [place] [address] Aug [facility] [place] [address] [id number] [place] [address] Aug Type 2 diabetes mellitus with hyperglycemia E11.65 [facility] [place] [address] [id number] [place] [address] Aug [facility] [address] [facility] [id number] [place] [address] Aug, [facility] [place] [address] [id number] [place] [address] Jul [facility] [place] [address] [id number] [place] [address] Jul Diabetic neuropathy E11.40 ; Essential hypertension I10 and Type 2 diabetes mellitus with hyperglycemia E11.65 [facility] [place] [address] [id number] [place] [address] Jul [facility] [place] [address] [id number] [place] [address] Jul [facility] [place] [address] [id number] [place] [address] Jul [facility] [place] [address] [id number] [place] [address] Jul [facility] [place] [address] [id number] [place] [address] Jul [facility] [place] [address] [id number] [place] [address] Jul Type 2 diabetes mellitus with hyperglycemia E11.65 ; Open wound of right great toe, subsequent encounter S91.101D ; Essential hypertension I10 and Diabetic neuropathy E11.40 [facility] [id number] [place] [address] Jul, [facility] [place] [address] [id number] [place] [address] Jun [facility] [place] [address] [id number] [place] [address] Jun Type 2 diabetes mellitus with hyperglycemia E11.65 [facility] [place] [address] [id number] [place] [address] Jun [facility] [place] [address] [id number] [place] [address] Jun [facility] [place] [address] [id number] [place] [address] 17 Jun Abnormal mammogram of right breast R92.8 and Breast asymmetry N64.89 [facility] [place] [address] [id number] [place] [address] 15 Jun [facility] [place] [address] [id number] [place] [address] Jun [facility] [place] [address] [id number] [place] [address] May Hypoglycemia E16.2 [facility] [place] [address] [id number] [place] [address] May Abnormal neurological exam R29.90 [facility] [place] [address] [id number] [place] [address] May [facility] [place] [address] [id number] [place] [address] May Type 2 diabetes mellitus with hyperglycemia E11.65 [facility] [place] [address] [id number] [place] [address] May Breast cancer screening Z12.31 and Hematuria, unspecified type R31.9 [facility] [place] [address] [id number] [place] [address] May [facility] [place] [address] [id number] [place] [address] May Type 2 diabetes mellitus with hyperglycemia E11.65 ; Essential hypertension I10 ; Moderately severe depression F32.2 and Confusion R41.0 [place] [address] [address] May, [facility] [place] [address] [id number] [place] [address] May Cerebrovascular accident (CVA), unspecified mechanism I63.9 ; Essential hypertension I10 ; Hyperlipidemia, unspecified E78.5 and Type 2 diabetes mellitus with hyperglycemia E11.65 [place] [address] [address] May, [place] [address] [address] May, [facility] [address] [id number] [place] [address] May [facility] [place] [address] [id number] [place] [address] May Diabetic neuropathy E11.40 and Diabetes E11.9 [facility] [place] [address] [id number] [place] [address] Apr [facility] [place] [address] [id number] [place] [address] Apr Subacute maxillary sinusitis J01.00 ; Hypoglycemia associated with type 2 diabetes mellitus E11.649 and Intractable episodic headache, unspecified headache type R51 [facility] [place] [address] [id number] [place] [address] Apr Diabetic neuropathy E11.40 and Anxiety F41.9 [facility] [place] [address] [id number] [place] [address] Apr [facility] [address] [id number] [place] [address] Apr Type 2 diabetes mellitus with hyperglycemia E11.65 ; Subacute maxillary sinusitis J01.00 ; Diabetic neuropathy E11.40 and Sleep apnea in adult G47.30 [place] [address] [place] [id number] [address] Apr, [facility] [place] [address] [id number] [place] [address] Apr [facility] [place] [address] [id number] [place] [address] Apr [facility] [place] [address] [id number] [place] [address] Apr Subacute maxillary sinusitis J01.00 [place] [address] [place] [address] Apr, Right foot drop M21.371 [facility] [place] [address] [id number] [place] [address] Apr [facility] [place] [address] [id number] [place] [address] Mar [facility] [place] [address] [id number] [place] [address] Mar Essential hypertension I10 ; Type 2 diabetes mellitus with hyperglycemia E11.65 ; Encounter for immunization Z23 ; Cocaine abuse F14.10 and Hyperlipidemia, unspecified E78.5 [facility] [place] [address] [id number] [place] [address] Mar [place] [address] [address] Mar, [facility] [place] [address] [id number] [place] [address] Feb [facility] [place] [address] [id number] [place] [address] Feb Type 2 diabetes mellitus with hyperglycemia E11.65 and Acute right ankle pain M25.571 [facility] [place] [address] [id number] [place] [address] Feb Weight loss R63.4 and Anxiety F41.9 [place] [address] [address] Jan, [place] [address] [place] [id number] [place] [address] Jan, [facility] [address] [address] Jan, [facility] [address] [address] Jan, Diabetes E11.9 [facility] [place] [address] [id number] [place] [address] Jan Sprain of right ankle, unspecified ligament, initial encounter S93.401A [facility] [place] [address] [id number] [place] [address] Jan Essential hypertension I10 ; Anxiety F41.9 and Type 2 diabetes mellitus with hyperglycemia E11.65 [facility] [address] [place] [address] Jan, Diabetes E11.9 [facility] [address] [place] [address] Jan, [facility] [address] [address] Jan, [facility] [address] [id number] [place] [address] Jan [facility] [address] [address] Jan, [facility] [address] [address] Jan, [facility] [address] [address] Jan, [facility] [address] [place] [address] Jan, [facility] [address] [address] Jan, Unintentional weight loss R63.4 ; Stage 2 chronic kidney disease N18.2 ; Exposure to hepatitis C Z20.5 ; Diabetic neuropathy E11.40 ; Obstructive sleep apnea syndrome G47.33 ; Essential hypertension I10 and Type 2 diabetes mellitus with hyperglycemia E11.65 [facility] [address] [address] Jan, [facility] [address] [place] [address] Jan, Type 2 diabetes mellitus with hyperglycemia E11.65 ; Diabetic neuropathy E11.40 and Essential hypertension I10 [facility] [address] [place] [address] Dec, Diabetes E11.9 [facility] [address] [place] [id number] [place] [address] Dec, [facility] [address] [place] [id number] [place] [address] Dec, [place] [address] [place] [id number] [place] [address] Dec, [facility] [address] [place] [address] Dec, Dental examination Z01.20 [facility] [address] [place] [address] Dec, [facility] [address] [place] [address] Dec, Diabetes E11.9 [facility] [address] [address] Dec, Stage 2 chronic kidney disease N18.2 ; Exposure to hepatitis C Z20.5 ; Obstructive sleep apnea syndrome G47.33 and Type 2 diabetes mellitus with hyperglycemia E11.65 [facility] [address] [address] Dec, [facility] [place] [address] [id number] [place] [address] Dec Diabetes E11.9 and Essential hypertension I10 [facility] [address] [place] [address], [place] [address] Nov, Diabetes E11.9 [facility] [address] [facility] [id number] [place] [address] Nov, Right foot pain M79.671 [facility] [place] [address] [facility] [id number] [place] [address] Nov, Right foot pain M79.671 [facility] [place] [address] [id number] [place] [address] Nov Diabetes E11.9 [facility] [place] [address] [id number] [place] [address] Nov Diabetes E11.9 [facility] [address] [facility] [id number] [place] [address] Nov, Dental examination Z01.20 [facility] [place] [address] [id number] [place] [address] Nov Diabetes E11.9 ; Cocaine abuse F14.10 and Shingles (herpes zoster) polyneuropathy B02.23 [facility] [place] [address] [id number] [place] [address] Nov [facility] [address] [facility] [id number] [place] [address] October, [facility] [place] [address] [id number] [place] [address] October [facility] [place] [address] [id number] [place] [address] October Unintentional weight loss R63.4 [facility] [place] [address] [id number] [place] [address] October Abscess L02.91 [facility] [place] [address] [id number] [place] [address] October Diabetes E11.9 ; Unintentional weight loss R63.4 ; History of hematuria Z87.448 and Cocaine abuse F14.10 [facility] [place] [address] [id number] [place] [address] October Diabetes E11.9 [facility] [place] [address] [id number] [place] [address] October Essential hypertension I10 and Abscess L02.91 [facility] [place] [address] [id number] [place] [address] Jun [facility] [place] [address] [id number] [place] [address] May Breast cancer screening Z12.39 ; Diabetes E11.9 and Anxiety F41.9 [facility] [place] [address] [facility] [id number] [place] [address] May, Diabetes E11.9 [facility] [place] [address] [id number] [place] [address] 15 May Diabetes E11.9 and Anemia D64.9 [facility] [place] [address] [id number] [place] [address] 14 May Anxiety F41.9 [facility] [place] [address] [id number] [place] [address] 08 May [facility] [place] [address] [id number] [place] [address] May Dysuria R30.0 [facility] [place] [address] [id number] [place] [address] 06 May [facility] [place] [address] [id number] [place] [address] 05 May Dysuria R30.0 and Vaginal itching L29.8 [facility] [address] [place] [id number] [address] Apr, [facility] [place] [address] [id number] [place] [address] 14 Apr Diabetes E11.9 ; Dysuria R30.0 ; Diabetic neuropathy E11.40 ; Anemia D64.9 and Vaginal discharge N89.8 [facility] [address] [facility] [id number] [address] Jun, [place] [address] [place] [id number] [place] [id number] Jun, Anemia D64.9 ; Anxiety F41.9 ; Diabetes E11.9 and Diabetic neuropathy E11.40 [address] [id number] May, [facility] [address] [place] 2358165100[place] [address] Apr, [place] [id number] [place] [id number] Apr, Anemia D64.9 ; Anxiety F41.9 ; Diabetes E11.9 and Diabetic neuropathy E11.40 [place] [id number] [place] [id number] Mar, Acute costochondritis M94.0 [place] [id number] [place] [id number] Mar, Bilateral low back pain without sciatica M54.5 and Bereavement Z63.4 [place] [address] [place] [id number] Mar, Obstructive chronic bronchitis with acute exacerbation J44.1 ; Herpes zoster without complication B02.9 and [place] N91.2 [address] [id number] Mar, [place] [address] [address] Mar, [place] [address] [id number] Feb, History of recent traumatic injury of head V15.52 ; Diabetes type 2, uncontrolled 250.02 and Visual disturbance 368.9 [address] [id number] Feb, History of recent traumatic injury of head V15.52 ; Visual disturbance 368.9 and Diabetes type 2, uncontrolled 250.02 IMMUNIZATIONS No Known Immunizations SOCIAL HISTORY Never Assessed REASON FOR VISIT lab results PLAN OF CARE VITAL SIGNS MEDICATIONS Medication Instructions Dosage Frequency Start Date End Date Duration Status Bactrim DS 800-160 MG Orally Twice a day 1 tablet 12h May, Jun, 07 days Active RESULTS No Results PROCEDURES No [...] 2004 Hospitalization History in [facility]hab [facility] 2016 Hospitalization History Stroke 05/2017 Hospitalization History surgeries Hospitalization History Elevated B/S 07/2017 Hospitalization History [facility] - blood clot LRE 10/2017 Hospitalization History [facility] - R ankle clot 11/2017
--- OUTSIDE RECORDS SUMMARY | 2018-05-13 11:04 | XMS REPORT ---
Author Author CHRIS BECKWITH [facility] Address [address] [place] [address] Care Team Providers Care Lifestyle Coordinator Name Role Phone CHRIS BECKWITH Unavailable PROBLEMS Type Condition ICD9-CM Code MGM96-TV Code Onset Dates Condition Status SNOMED Code Problem Anxiety F41.9 Active 05312185 Problem Diabetic neuropathy E11.40 Active 869020094 Problem Hyperlipidemia, unspecified E78.5 Active 53854409 Problem Type 2 diabetes mellitus with hyperglycemia E11.65 Active 069676691748780 Problem Cocaine abuse F14.10 Active 92242319 Problem Essential hypertension I10 Active 94216839 Problem Obstructive sleep apnea syndrome G47.33 Active 70860413 Problem Stage 2 chronic kidney disease N18.2 Active 424123072 ALLERGIES Substance Reaction Event Type Date Status Phenergan nausea Drug Allergy October, Active Penicillin V Potassium nausea Drug Allergy October, Active SOCIAL HISTORY Never Assessed PLAN OF CARE Activity Details Follow Up 4 Weeks Reason:dm f/u VITAL SIGNS Height 63.50 in 2016-10-16 Weight 109.3 lbs 2016-10-16 Temperature 98.1 degrees Fahrenheit 2016-10-16 Heart Rate 82 bpm 2016-10-16 Respiratory Rate 18 2016-10-16 BMI 19.06 kg/m2 2016-10-16 Blood pressure systolic 118 mmHg 2016-10-16 Blood pressure diastolic 76 mmHg 2016-10-16 MEDICATIONS Medication Instructions Dosage Frequency Start Date End Date Duration Status Ropinirole HCl 1 MG 1 tablet 1 to 3 hours before bedtime 30 days Active Simvastatin 40 MG Orally Once a day 1 tablet in the evening 24h Active MetFORMIN HCl ER 500 MG Orally 2 times a day 2 tablet 12h Apr, Active Pen [place] 31G X 6 MM as directed 24h 18 Apr, 2016 30 days Active Lantus 100 UNIT/ML Subcutaneous Once a day at night 15 units Active Lisinopril 10 mg Orally Once a day 1 tablet 24h 30 days Active RESULTS Name Result Date Reference Range A1C (IN HOUSE) 2016-10-16 A1C IN HOUSE 12.0 4.3 - 5.6 % Previous A1c 13.1 Lot [id number] Exp date 06/2018 URINE DRUG SCREEN (IN HOUSE) 2016-10-16 Lot # [id number] Exp date 06/2017 Control + COCAINE positive AMPH negative MTD negative THC negative OPIATE negative BENZO negative PCP negative BAR negative OXY negative MAMP negative TCA negative BUP negative MDMA negative UA LONG DIP (IN HOUSE) 2016-10-16 Lot # [id number] Exp date 04/2017 Clarity clear Color yellow Odor no GLU negative AVERY KET trace SG >1.030 BLO small pH 6.0 Protein 300 URO NIT positive ITALIA trace Lot # Exp date TSH 2016-10-16 TSH 0.841 0.450-4.500 CBC 2016-10-16 WBC 4.8 3.4-10.8 RBC 3.87 3.77-5.28 Hemoglobin 11.7 11.1-15.9 Hematocrit 36.3 34.0-46.6 MCV 94 79-97 MCH 30.2 26.6-33.0 MCHC 32.2 31.5-35.7 RDW 13.6 12.3-15.4 Platelets 340 150-379 Neutrophils 55 Lymphs 37 Monocytes 6 Eos 2 Basos 0 Neutrophils (Absolute) 2.6 1.4-7.0 Lymphs (Absolute) 1.8 0.7-3.1 Monocytes(Absolute) 0.3 0.1-0.9 Eos (Absolute) 0.1 0.0-0.4 Baso (Absolute) 0.0 0.0-0.2 Immature Granulocytes 0 Immature Grans (Abs) 0.0 0.0-0.1 ESR/SED RATE 2016-10-16 Sedimentation Rate-Westergren 33 0-40 CRP 2016-10-16 C-Reactive Protein, Quant 0.5 0.0-4.9 CMP 2016-10-16 Glucose, Serum 127 65-99 BUN 18 6-24 Creatinine, Serum 1.62 0.57-1.00 eGFR If NonAfricn Am 36 >59 eGFR If Africn Am 42 >59 BUN/Creatinine Ratio 11 9-23 Sodium, Serum 138 134-144 Potassium, Serum 4.7 3.5-5.2 Chloride, Serum 100 96-106 Carbon Dioxide, Total 19 18-29 Calcium, Serum 8.9 8.7-10.2 Protein, Total, Serum 6.3 6.0-8.5 Albumin, Serum 3.9 3.5-5.5 Globulin, Total 2.4 1.5-4.5 A/G Ratio 1.6 1.2-2.2 Bilirubin, Total 0.4 0.0-1.2 Alkaline Phosphatase, S 79 39-117 AST (SGOT) 15 0-40 ALT (SGPT) 10 0-32 PROCEDURES Procedure Date Ordered Result Body Site GLYCATED HEMOGLOBIN TEST October 16, 2016 URINALYSIS, AUTO, W/O SCOPE October 16, 2016 C-REACTIVE PROTEIN October 16, 2016 RBC SED RATE, AUTOMATED October 16, 2016 COMPLETE CBC W/AUTO DIFF WBC October 16, 2016 DRUG TEST PRSMV DIR OPT OBS October 16, 2016 ASSAY THYROID STIM HORMONE October 16, 2016 COMPREHEN METABOLIC PANEL October 16, 2016 IMMUNIZATIONS No Known Immunizations MEDICAL (GENERAL) HISTORY Type Description Date Medical History Diabetes Medical History hypertension Medical History hyperlipidemia Medical History neuropathy Surgical History Hysterectomy 1998 Surgical History cyst on left breast removed Hospitalization History high blood glucose and kidney infection 2004 Hospitalization History in [place]hab [place] [address]
[2018-05-13 11:05] VITALS: BP 155/94
--- OUTSIDE RECORDS SUMMARY | 2018-05-13 11:05 | XMS REPORT ---
Author Author CHRIS BECKWITH [facility] Address [address] [place] [address] Care Team Providers Care Medical Billing Assistant Name Role Phone CHRIS BECKWITH Unavailable PROBLEMS Type Condition ICD9-CM Code VWE16-AB Code Onset Dates Condition Status SNOMED Code Problem Sleep apnea in adult G47.30 Active 16422048 Problem Moderately severe depression F32.2 Active 555427576 Problem Hypoglycemia associated with type 2 diabetes mellitus E11.649 Active 595459276 Problem PVD (peripheral vascular disease) I73.9 Active 241872842 Problem PAD (peripheral artery disease) I73.9 Active 815038931 Problem Hypoglycemia E16.2 Active 268218995 Problem Cerebrovascular accident (CVA), unspecified mechanism I63.9 Active 308766050 Problem Breast asymmetry N64.89 Active 830364677 Problem Abnormal mammogram of right breast R92.8 Active 765047716 Problem Diabetic neuropathy E11.40 Active 775087313 Problem Anxiety F41.9 Active 93249629 Problem Obstructive sleep apnea syndrome G47.33 Active 27090167 Problem Stage 2 chronic kidney disease N18.2 Active 202945192 Problem Essential hypertension I10 Active 82641289 Problem Type 2 diabetes mellitus with hyperglycemia E11.65 Active 147038046087613 Problem Cocaine abuse F14.10 Active 51797702 Problem Hyperlipidemia, unspecified E78.5 Active 18643092 ALLERGIES No Information ENCOUNTERS Encounter Location Date Diagnosis [facility] [address] [id number] [place] [address] Nov [facility] [address] [id number] [place] [address] Nov [facility] [address] [id number] [place] [address] Nov PVD (peripheral vascular disease) I73.9 ; Type 2 diabetes mellitus with hyperglycemia E11.65 and PAD (peripheral artery disease) I73.9 [facility] [place] [address] [id number] [place] [address] Nov [facility] [place] [address] [id number] [place] [address] Nov [facility] [place] [address] [id number] [place] [address] Nov [facility] [place] [address] [id number] [place] [address] October [facility] [place] [address] [id number] [place] [address] October [facility] [place] [address] [id number] [place] [address] October Type 2 diabetes mellitus with hyperglycemia E11.65 and Surgical procedure on lower extremity within past 6 months Z98.890 [facility] [place] [address] [id number] [place] [address] October [facility] [place] [address] [id number] [place] [address] October [facility] [address] [facility] [id number] [place] [address] October, [facility] [place] [address] [id number] [place] [address] October Sleep apnea in adult G47.30 [facility] [place] [address] [id number] [place] [address] October Type 2 diabetes mellitus with hyperglycemia E11.65 [facility] [place] [address] [id number] [place] [address] Sep [facility] [place] [address] [id number] [place] [address] Sep Breast asymmetry N64.89 [facility] [place] [address] [id number] [place] [address] Sep [facility] [place] [address] [id number] [place] [address] Sep Type 2 diabetes mellitus with hyperglycemia E11.65 ; Cocaine abuse F14.10 and Open wound of right great toe, subsequent encounter S91.101D [facility] [place] [address] [id number] [place] [address] Sep [facility] [place] [address] [id number] [place] [address] Aug [facility] [place] [address] [id number] [place] [address] Aug [facility] [place] [address] [id number] [place] [address] Aug Type 2 diabetes mellitus with hyperglycemia E11.65 [facility] [place] [address] [id number] [place] [address] Aug [facility] [address] [facility] [id number] [place] [address] Aug, [facility] [place] [address] [id number] [place] [address] Jul [facility] [place] [address] [id number] [place] [address] Jul Diabetic neuropathy E11.40 ; Essential hypertension I10 and Type 2 diabetes mellitus with hyperglycemia E11.65 [facility] [place] [address] [id number] [place] [address] Jul [facility] [place] [address] [id number] [place] [address] Jul [facility] [place] [address] [id number] [place] [address] Jul [facility] [place] [address] [id number] [place] [address] Jul [facility] [place] [address] [id number] [place] [address] Jul [facility] [place] [address] [id number] [place] [address] Jul Type 2 diabetes mellitus with hyperglycemia E11.65 ; Open wound of right great toe, subsequent encounter S91.101D ; Essential hypertension I10 and Diabetic neuropathy E11.40 [facility] [id number] [place] [id number] Jul, [facility] [place] [address] [id number] [place] [address] Jun [facility] [place] [address] [id number] [place] [address] Jun Type 2 diabetes mellitus with hyperglycemia E11.65 [facility] [place] [address] [id number] [place] [address] Jun [facility] [place] [address] [id number] [place] [address] Jun [facility] [place] [address] [id number] [place] [address] 17 Jun Abnormal mammogram of right breast R92.8 and Breast asymmetry N64.89 [facility] [place] [address] [id number] [place] [address] 15 Jun [facility] [place] [address] [id number] [place] [address] Jun [facility] [place] [address] [id number] [place] [address] May Hypoglycemia E16.2 [facility] [place] [address] [id number] [place] [address] May Abnormal neurological exam R29.90 [facility] [place] [address] [id number] [place] [address] May [facility] [place] [address] [id number] [place] [address] May Type 2 diabetes mellitus with hyperglycemia E11.65 [facility] [place] [address] [id number] [place] [address] May Breast cancer screening Z12.31 and Hematuria, unspecified type R31.9 [facility] [place] [address] [id number] [place] [address] May [facility] [place] [address] [id number] [place] [address] May Type 2 diabetes mellitus with hyperglycemia E11.65 ; Essential hypertension I10 ; Moderately severe depression F32.2 and Confusion R41.0 [place] [address], [place] [address] May, [facility] [place] [address] [id number] [place] [address] May Cerebrovascular accident (CVA), unspecified mechanism I63.9 ; Essential hypertension I10 ; Hyperlipidemia, unspecified E78.5 and Type 2 diabetes mellitus with hyperglycemia E11.65 [place] [address], [place] [address] May, [place] [address], [place] [address] May, [facility] [address] [id number] [place] [address] May [facility] [place] [address] [id number] [place] [address] May Diabetic neuropathy E11.40 and Diabetes E11.9 [facility] [place] [address] [id number] [place] [address] Apr [facility] [place] [address] [id number] [place] [address] Apr Subacute maxillary sinusitis J01.00 ; Hypoglycemia associated with type 2 diabetes mellitus E11.649 and Intractable episodic headache, unspecified headache type R51 [facility] [place] [address] [id number] [place] [address] Apr Diabetic neuropathy E11.40 and Anxiety F41.9 [facility] [place] [address] [id number] [place] [address] Apr [facility] [place] [address] [id number] [place] [address] Apr Type 2 diabetes mellitus with hyperglycemia E11.65 ; Subacute maxillary sinusitis J01.00 ; Diabetic neuropathy E11.40 and Sleep apnea in adult G47.30 [place] [address] [place] [id number] [address] Apr, [facility] [place] [address] [id number] [place] [address] Apr [facility] [place] [address] [id number] [place] [address] Apr [facility] [place] [address] [id number] [place] [address] Apr Subacute maxillary sinusitis J01.00 [place] [address] [place] [address]47[address]100[place] [address] Apr, Right foot drop M21.371 [facility] [place] [address] [id number] [place] [address] Apr [facility] [place] [address] [id number] [place] [address] Mar [facility] [place] [address] [id number] [place] [address] Mar Essential hypertension I10 ; Type 2 diabetes mellitus with hyperglycemia E11.65 ; Encounter for immunization Z23 ; Cocaine abuse F14.10 and Hyperlipidemia, unspecified E78.5 [facility] [place] [address] [id number] [place] [address] Mar [place] [id number] [address] Mar, [facility] [place] [address] [id number] [place] [address] Feb [facility] [place] [address] [id number] [place] [address] Feb Type 2 diabetes mellitus with hyperglycemia E11.65 and Acute right ankle pain M25.571 [facility] [place] [address] [id number] [place] [address] Feb Weight loss R63.4 and Anxiety F41.9 [place] [address], [place] [address] Jan, [place] [address] [place] [id number] [place] [address] Jan, [facility] [place] [address]100[place], [place] [address] Jan, [facility] [place] [address], [place] [address] Jan, Diabetes E11.9 [facility] [place] [address] [id number] [place] [address] Jan Sprain of right ankle, unspecified ligament, initial encounter S93.401A [facility] [place] [address] [id number] [place] [address] Jan Essential hypertension I10 ; Anxiety F41.9 and Type 2 diabetes mellitus with hyperglycemia E11.65 [facility] [place] [address] [place] [address] Jan, Diabetes E11.9 [facility] [place] [address] [place] [address] Jan, [facility] [place] [address], [place] [address] Jan, [facility] MAN [address] [id number] [place] [address] Jan [facility] [place] [address], [place] [address] Jan, [facility] [place] [address], [place] [address] Jan, [facility] [place] [address], [place] [address] Jan, [facility] [place] [address] [place] [address] Jan, [facility] [place] [address]100[place], [place] [address] Jan, Unintentional weight loss R63.4 ; Stage 2 chronic kidney disease N18.2 ; Exposure to hepatitis C Z20.5 ; Diabetic neuropathy E11.40 ; Obstructive sleep apnea syndrome G47.33 ; Essential hypertension I10 and Type 2 diabetes mellitus with hyperglycemia E11.65 [facility] [place] [address]100[place], [place] [address] Jan, [facility] [place] [address] [place] [address] Jan, Type 2 diabetes mellitus with hyperglycemia E11.65 ; Diabetic neuropathy E11.40 and Essential hypertension I10 [facility] [place] [address] [place] [address] Dec, Diabetes E11.9 [facility] [place] [address] [place] [id number] [place] [address] Dec, [facility] [place] [address] [place] [id number] [place] [address] Dec, [place] [address] [place] [id number] [place] [address] Dec, [facility] [place] [address] [place] [address] Dec, Dental examination Z01.20 [facility] [place] [address] [place] [address] Dec, [facility] [place] [address] [place] [address] Dec, Diabetes E11.9 [facility] [place] [address], [place] [address] Dec, Stage 2 chronic kidney disease N18.2 ; Exposure to hepatitis C Z20.5 ; Obstructive sleep apnea syndrome G47.33 and Type 2 diabetes mellitus with hyperglycemia E11.65 [facility] [place] [address], [place] [address] Dec, [facility] [place] [address] [id number] [place] [address] Dec Diabetes E11.9 and Essential hypertension I10 [facility] [place] [address] [place] [address], [place] [address] Nov, Diabetes E11.9 [facility] [address] [facility] [id number] [place] [address] Nov, Right foot pain M79.671 [facility] [address] [facility] [id number] [place] [address] Nov, Right foot pain M79.671 [facility] [place] [address] [id number] [place] [address] Nov Diabetes E11.9 [facility] [place] [address] [id number] [place] [address] Nov Diabetes E11.9 [facility] [address] [facility] [id number] [place] [address] Nov, Dental examination Z01.20 [facility] [place] [address] [id number] [place] [address] Nov Diabetes E11.9 ; Cocaine abuse F14.10 and Shingles (herpes zoster) polyneuropathy B02.23 [facility] [place] [address] [id number] [place] [address] Nov [facility] [address] [facility] [id number] [place] [address] October, [facility] [place] [address] [id number] [place] [address] October [facility] [place] [address] [id number] [place] [address] October Unintentional weight loss R63.4 [facility] [place] [address] [id number] [place] [address] October Abscess L02.91 [facility] [place] [address] [id number] [place] [address] October Diabetes E11.9 ; Unintentional weight loss R63.4 ; History of hematuria Z87.448 and Cocaine abuse F14.10 [facility] [place] [address] [id number] [place] [address] October Diabetes E11.9 [facility] [place] [address] [id number] [place] [address] October Essential hypertension I10 and Abscess L02.91 [facility] [place] [address] [id number] [place] [address] Jun [facility] [place] [address] [id number] [place] [address] May Breast cancer screening Z12.39 ; Diabetes E11.9 and Anxiety F41.9 [facility] [address] [facility] [id number] [place] [id number] May, Diabetes E11.9 [facility] [place] [address] [id number] [place] [address] 15 May Diabetes E11.9 and Anemia D64.9 [facility] [place] [address] [id number] [place] [address] 14 May Anxiety F41.9 [facility] [place] [address] [id number] [place] [address] 08 May [facility] [place] [address] [id number] [place] [address] May Dysuria R30.0 [facility] [place] [address] [id number] [place] [address] 06 May [facility] [place] [address] [id number] [place] [address] 05 May Dysuria R30.0 and Vaginal itching L29.8 [facility] [place] [address] [place] [address] [id number] [address] Apr, [facility] [place] [address] [id number] [place] [address] 14 Apr Diabetes E11.9 ; Dysuria R30.0 ; Diabetic neuropathy E11.40 ; Anemia D64.9 and Vaginal discharge N89.8 [facility] [place] [address] [facility] [id number] [address] Jun, [place] [address] [place] [id number] [place] [id number] Jun, Anemia D64.9 ; Anxiety F41.9 ; Diabetes E11.9 and Diabetic neuropathy E11.40 [address] [phone] May, [facility] [place] [address] [place] [address] 0794765100[place], [place] [address] Apr, [place] [id number] [place] [phone] Apr, Anemia D64.9 ; Anxiety F41.9 ; Diabetes E11.9 and Diabetic neuropathy E11.40 [place] [address] [place] [id number] Mar, Acute costochondritis M94.0 [place] [address] [place] [phone] Mar, Bilateral low back pain without sciatica M54.5 and Bereavement Z63.4 [place] [address] [place] [phone] Mar, Obstructive chronic bronchitis with acute exacerbation J44.1 ; Herpes zoster without complication B02.9 and [place] N91.[address]65100[place] [phone] Mar, [place] [address]265100[place] [id number] Mar, [place] [address]265100[place] [address] Feb, History of recent traumatic injury of head V15.52 ; Diabetes type 2, uncontrolled 250.02 and Visual disturbance 368.9 [address]00565100[place] [id number] Feb, History of recent traumatic injury of head V15.52 ; Visual disturbance 368.9 and Diabetes type 2, uncontrolled 250.02 IMMUNIZATIONS No Known Immunizations SOCIAL HISTORY Never Assessed REASON FOR VISIT Glucometer PLAN OF CARE VITAL SIGNS MEDICATIONS Unknown [...] infection 2005 Hospitalization History in rehab at [facility] 2016 Hospitalization History Stroke 05/2017 Hospitalization History surgeries Hospitalization History Elevated B/S 07/2017 Hospitalization History [facility] - blood clot LRE 10/2017 Hospitalization History [facility] - R ankle clot 11/2017
--- OUTSIDE RECORDS SUMMARY | 2018-05-13 11:05 | XMS REPORT ---
Author Author CHRIS BECKWITH [facility] Address [address] [place] [address] Care Team Providers Care Greige Goods Examiner Name Role Phone CHRIS BECKWITH Unavailable PROBLEMS Type Condition ICD9-CM Code MSR97-CH Code Onset Dates Condition Status SNOMED Code Problem Anxiety F41.9 Active 79332082 Problem Diabetic neuropathy E11.40 Active 150724285 Problem Hyperlipidemia, unspecified E78.5 Active 86052222 Problem Type 2 diabetes mellitus with hyperglycemia E11.65 Active 774040451990969 Problem Cocaine abuse F14.10 Active 85725810 Problem Essential hypertension I10 Active 45482307 Problem Obstructive sleep apnea syndrome G47.33 Active 52860434 Problem Stage 2 chronic kidney disease N18.2 Active 831444963 ALLERGIES No Information SOCIAL HISTORY Never Assessed [...] infection 2004 Hospitalization History in rehab at [place] [address]
--- OUTSIDE RECORDS SUMMARY | 2018-05-13 11:05 | XMS REPORT ---
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 Name Role Phone CHRIS BECKWITH Unavailable PROBLEMS Type Condition ICD9-CM Code ISO07-MO Code Onset Dates Condition Status SNOMED Code Problem Type 2 diabetes mellitus with hyperglycemia E11.65 Active 533843448639672 Problem Sleep apnea in adult G47.30 Active 35025766 Problem Hyperlipidemia, unspecified E78.5 Active 40496674 Problem Abnormal mammogram of right breast R92.8 Active 702716023 Problem Breast asymmetry N64.89 Active 142489037 Problem Moderately severe depression F32.2 Active 922292287 Problem Hypoglycemia associated with type 2 diabetes mellitus E11.649 Active 659483981 Problem Hypoglycemia E16.2 Active 884830192 Problem Cerebrovascular accident (CVA), unspecified mechanism I63.9 Active 726385792 Problem Essential hypertension I10 Active 31021890 Problem Cocaine abuse F14.10 Active 40877023 Problem Diabetic neuropathy E11.40 Active 343133531 Problem Stage 2 chronic kidney disease N18.2 Active 814564814 Problem Anxiety F41.9 Active 23486151 Problem Obstructive sleep apnea syndrome G47.33 Active 15738946 ALLERGIES No Information ENCOUNTERS Encounter Location Date Diagnosis [facility] [place] [address] [id number] [place] [address] Aug [facility] [place] [address] [id number] [place] [address] Aug [facility] [place] [address] [id number] [place] [address] Aug Type 2 diabetes mellitus with hyperglycemia E11.65 [facility] [address] [id number] [place] [address] Aug [facility] [address] [facility] [id number] [place] [address] Aug, [facility] [place] [address] [id number] [place] [address] Jul [facility] [place] [address] [id number] [place] [address] Jul Diabetic neuropathy E11.40 ; Essential hypertension I10 and Type 2 diabetes mellitus with hyperglycemia E11.65 [facility] [place] [address] [id number] [place] [address] Jul [facility] [place] [address] [id number] [place] [address] Jul [facility] [place] [address] [id number] [place] [address] Jul [facility] [place] [address] [id number] [place] [address] Jul [facility] [place] [address] [id number] [place] [address] Jul [facility] [place] [address] [id number] [place] [address] Jul Type 2 diabetes mellitus with hyperglycemia E11.65 ; Open wound of right great toe, subsequent encounter S91.101D ; Essential hypertension I10 and Diabetic neuropathy E11.40 [facility] [address] [id number] [place] [id number] Jul, [facility] [place] [address] [id number] [place] [address] Jun [facility] [place] [address] [id number] [place] [address] Jun Type 2 diabetes mellitus with hyperglycemia E11.65 [facility] [place] [address] [id number] [place] [address] Jun [facility] [place] [address] [id number] [place] [address] Jun [facility] [place] [address] [id number] [place] [address] Jun Abnormal mammogram of right breast R92.8 and Breast asymmetry N64.89 [facility] [place] [address] [id number] [place] [address] Jun [facility] [place] [address] [id number] [place] [address] Jun [facility] [place] [address] [id number] [place] [address] May Hypoglycemia E16.2 [facility] [place] [address] [id number] [place] [address] May Abnormal neurological exam R29.90 [facility] [place] [address] [id number] [place] [address] May [facility] [place] [address] [id number] [place] [address] May Type 2 diabetes mellitus with hyperglycemia E11.65 [facility] [place] [address] [id number] [place] [address] May Breast cancer screening Z12.31 and Hematuria, unspecified type R31.9 [facility] [place] [address] [id number] [place] [address] May [facility] [place] [address] [id number] [place] [address] May Type 2 diabetes mellitus with hyperglycemia E11.65 ; Essential hypertension I10 ; Moderately severe depression F32.2 and Confusion R41.0 [place] [address] [id number] [address] May, [facility] [place] [address] [id number] [place] [address] May Cerebrovascular accident (CVA), unspecified mechanism I63.9 ; Essential hypertension I10 ; Hyperlipidemia, unspecified E78.5 and Type 2 diabetes mellitus with hyperglycemia E11.65 [place] [address] [id number] [address] May, [place] [address] [id number] [address] May, [facility] [place] [address] [id number] [place] [address] May [facility] [place] [address] [id number] [place] [address] May Diabetic neuropathy E11.40 and Diabetes E11.9 [facility] [place] [address] [id number] [place] [address] Apr [facility] [place] [address] [id number] [place] [address] Apr Subacute maxillary sinusitis J01.00 ; Hypoglycemia associated with type 2 diabetes mellitus E11.649 and Intractable episodic headache, unspecified headache type R51 [facility] [place] [address] [id number] [place] [address] Apr Diabetic neuropathy E11.40 and Anxiety F41.9 [facility] [place] [address] [id number] [place] [address] Apr [facility] [place] [address] [id number] [place] [address] Apr Type 2 diabetes mellitus with hyperglycemia E11.65 ; Subacute maxillary sinusitis J01.00 ; Diabetic neuropathy E11.40 and Sleep apnea in adult G47.30 [place] [address] [id number] [address] Apr, [facility] [place] [address] [id number] [place] [address] Apr [facility] [place] [address] [id number] [place] [address] Apr [facility] [place] [address] [id number] [place] [address] Apr Subacute maxillary sinusitis J01.00 [place] [address] [id number] [address] Apr, Right foot drop M21.371 [facility] [place] [address] [id number] [place] [address] Apr [facility] [place] [address] [id number] [place] [address] Mar [facility] [place] [address] [id number] [place] [address] Mar Essential hypertension I10 ; Type 2 diabetes mellitus with hyperglycemia E11.65 ; Encounter for immunization Z23 ; Cocaine abuse F14.10 and Hyperlipidemia, unspecified E78.5 [facility] [place] [address] [id number] [place] [address] Mar [facility] [address], [place] [address] Mar, [facility] [place] [address] [id number] [place] [address] Feb [facility] [place] [address] [id number] [place] [address] Feb Type 2 diabetes mellitus with hyperglycemia E11.65 and Acute right ankle pain M25.571 [facility] [place] [address] [id number] [place] [address] Feb Weight loss R63.4 and Anxiety F41.9 [place] [address], [place] [address] Jan, [facility] [id number] [place] [address] Jan, [facility] [id number] [place] [address] Jan, [facility] [address] [place] [address] Jan, Diabetes E11.9 [facility] [place] [address] [id number] [place] [address] Jan Sprain of right ankle, unspecified ligament, initial encounter S93.401A [facility] [place] [address] [id number] [place] [address] Jan Essential hypertension I10 ; Anxiety F41.9 and Type 2 diabetes mellitus with hyperglycemia E11.65 [facility] [address], [place] [address] Jan, Diabetes E11.9 [facility] [address]100[place], [place] [address] Jan, [facility] [address] [address] Jan, [address] [id number] [place] [address] Jan [facility] [address]100[place], [place] [address] Jan, [facility] [address], [place] [address] Jan, [facility] [address]100[place], [place] [address] Jan, [facility] [address]00565100[place], [place] [address] Jan, [facility] [address]100[place], [place] [address] Jan, Unintentional weight loss R63.4 ; Stage 2 chronic kidney disease N18.2 ; Exposure to hepatitis C Z20.5 ; Diabetic neuropathy E11.40 ; Obstructive sleep apnea syndrome G47.33 ; Essential hypertension I10 and Type 2 diabetes mellitus with hyperglycemia E11.65 [facility] [address]100[place], [place] [address] Jan, [facility] [address], [place] [address] Jan, Type 2 diabetes mellitus with hyperglycemia E11.65 ; Diabetic neuropathy E11.40 and Essential hypertension I10 [facility] [address]100[place], [place] [address] Dec, Diabetes E11.9 [facility] [address] [id number], [place] [address] Dec, [facility] [address], [place] [address] Dec, [facility] [address]100[place], [place] [address] Dec, [facility] [address]100[place], [place] [address] Dec, Dental examination Z01.20 [facility] [address], [place] [address] Dec, [facility] [address] [place] [address] Dec, Diabetes E11.9 [place] [address] [place] [address] Dec, Stage 2 chronic kidney disease N18.2 ; Exposure to hepatitis C Z20.5 ; Obstructive sleep apnea syndrome G47.33 and Type 2 diabetes mellitus with hyperglycemia E11.65 [facility] [address]005[address], [place] [address] Dec, [facility] [place] [address] [id number] [place] [address] Dec Diabetes E11.9 and Essential hypertension I10 [facility] [address], [place] [address] Nov, Diabetes E11.9 [facility] [address] [id number], [place] [address] Nov, Right foot pain M79.671 [facility] [id number] [address] Nov, Right foot pain M79.671 [facility] [place] [address] [id number] [place] [address] Nov Diabetes E11.9 [facility] [address] [id number] [place] [address] Nov Diabetes E11.9 [facility] [id number] [id number] Nov, Dental examination Z01.20 [facility] [place] [address] [id number] [place] [address] 09 Nov Diabetes E11.9 ; Cocaine abuse F14.10 and Shingles (herpes zoster) polyneuropathy B02.23 [facility] [place] [address] [id number] [place] [address] Nov [facility] [address] [facility] [id number] [place] [address] October, [facility] [place] [address] [id number] [place] [address] October [facility] [place] [address] [id number] [place] [address] October Unintentional weight loss R63.4 [facility] [place] [address] [id number] [place] [address] October Abscess L02.91 [facility] [place] [address] [id number] [place] [address] October Diabetes E11.9 ; Unintentional weight loss R63.4 ; History of hematuria Z87.448 and Cocaine abuse F14.10 [facility] [place] [address] [id number] [place] [address] October Diabetes E11.9 [facility] [place] [address] [id number] [place] [address] October Essential hypertension I10 and Abscess L02.91 [facility] [place] [address] [id number] [place] [address] Jun [facility] [place] [address] [id number] [place] [address] May Breast cancer screening Z12.39 ; Diabetes E11.9 and Anxiety F41.9 [facility] [address] [id number] [place] [id number] May, Diabetes E11.9 [facility] [place] [address] [id number] [place] [address] May Diabetes E11.9 and Anemia D64.9 [facility] [place] [address] [id number] [place] [address] 14 May Anxiety F41.9 [facility] [place] [address] [id number] [place] [address] 08 May [facility] [place] [address] [id number] [place] [address] 06 May Dysuria R30.0 [facility] [place] [address] [id number] [place] [address] May [facility] [place] [address] [id number] [place] [address] 05 May Dysuria R30.0 and Vaginal itching L29.8 [place] [address] [place] [address] Apr, [facility] [place] [address] [id number] [place] [address] 14 Apr Diabetes E11.9 ; Dysuria R30.0 ; Diabetic neuropathy E11.40 ; Anemia D64.9 and Vaginal discharge N89.8 [place] [address], [place] [address] Jun, [place] [id number] [place] [id number] Jun, Anemia D64.9 ; Anxiety F41.9 ; Diabetes E11.9 and Diabetic neuropathy E11.[address] [place] [id number] May, [facility] [address] [place] [address] Apr, [place] [id number] [place] [id number] Apr, Anemia D64.9 ; Anxiety F41.9 ; Diabetes E11.9 and Diabetic neuropathy E11.[address] [place] [id number] Mar, Acute costochondritis M94.0 [address]00565100[place] [id number] 15 Mar, 2015 Bilateral low back pain without sciatica M54.5 and Bereavement Z63.4 [address]00565100[place] [address] 14 Mar, 2015 Obstructive chronic bronchitis with acute exacerbation J44.1 ; Herpes zoster without complication B02.9 and [place]stone N91.2 [address]00565100[place] [id number] Mar, [address]00565100[place] [id number] Mar, [address]00565100[place] [id number] 24 Feb, 2015 History of recent traumatic injury of head V15.52 ; Diabetes type 2, uncontrolled 250.02 and Visual disturbance 368.9 [place] [id number] [id number] Feb, History of recent traumatic injury of head V15.52 ; Visual disturbance 368.9 and Diabetes type 2, uncontrolled 250.02 IMMUNIZATIONS No Known Immunizations SOCIAL HISTORY Never Assessed REASON FOR VISIT Other PLAN OF CARE VITAL SIGNS MEDICATIONS Medication Instructions Dosage Frequency Start Date End Date Duration Status Lantus SoloStar 100 UNIT/ML Subcutaneous Once a day 15 [...] infection 2005 Hospitalization History in [facility] 2016 Hospitalization History Stroke 05/2017 Hospitalization History surgeries Hospitalization History Elevated B/S 07/2017
--- OUTSIDE RECORDS SUMMARY | 2018-05-13 11:06 | XMS REPORT ---
Author Author GENNARO LIN Organization [facility] Address [address] [place] [address] Care Team Providers Care Contract Recruiter Name Role Phone LINCATAA Unavailable PROBLEMS Type Condition ICD9-CM Code JFO48-OF Code Onset Dates Condition Status SNOMED Code Problem Type 2 diabetes mellitus with hyperglycemia E11.65 Active 705152620050389 Problem Sleep apnea in adult G47.30 Active 85542542 Problem Hyperlipidemia, unspecified E78.5 Active 05786967 Problem Abnormal mammogram of right breast R92.8 Active 922072919 Problem Breast asymmetry N64.89 Active 487920452 Problem Moderately severe depression F32.2 Active 200773032 Problem Hypoglycemia associated with type 2 diabetes mellitus E11.649 Active 433907046 Problem Hypoglycemia E16.2 Active 579809576 Problem Cerebrovascular accident (CVA), unspecified mechanism I63.9 Active 185755454 Problem Essential hypertension I10 Active 83208914 Problem Cocaine abuse F14.10 Active 89789997 Problem Diabetic neuropathy E11.40 Active 376084084 Problem Stage 2 chronic kidney disease N18.2 Active 642534460 Problem Anxiety F41.9 Active 50516320 Problem Obstructive sleep apnea syndrome G47.33 Active 91406202 ALLERGIES No Information ENCOUNTERS Encounter Location Date Diagnosis 20:20 Mobile MAN [address] [id number] [place] [address] Sep Type 2 diabetes mellitus with hyperglycemia E11.65 ; Cocaine abuse F14.10 and Open wound of right great toe, subsequent encounter S91.101D [facility] [address] [id number] [place] [address] Sep [facility] [address] [id number] [place] [address] Aug [facility] [address] [id number] [place] [address] Aug [facility] [place] [address] [id number] [place] [address] Aug Type 2 diabetes mellitus with hyperglycemia E11.65 [facility] [place] [address] [id number] [place] [address] Aug [facility] [address] [facility] [id number] [place] [address] Aug, [facility] [place] [address] [id number] [place] [address] Jul [facility] [place] [address] [id number] [place] [address] Jul Diabetic neuropathy E11.40 ; Essential hypertension I10 and Type 2 diabetes mellitus with hyperglycemia E11.65 [facility] [place] [address] [id number] [place] [address] Jul [facility] [place] [address] [id number] [place] [address] Jul [facility] [place] [address] [id number] [place] [address] Jul [facility] [place] [address] [id number] [place] [address] Jul [facility] [place] [address] [id number] [place] [address] Jul [facility] [place] [address] [id number] [place] [address] Jul Type 2 diabetes mellitus with hyperglycemia E11.65 ; Open wound of right great toe, subsequent encounter S91.101D ; Essential hypertension I10 and Diabetic neuropathy E11.[address] [facility] [address] [id number] [place] [address] Jul, [facility] [place] [address] [id number] [place] [address] Jun [facility] [place] [address] [id number] [place] [address] Jun Type 2 diabetes mellitus with hyperglycemia E11.65 [facility] [place] [address] [id number] [place] [address] Jun [facility] [place] [address] [id number] [place] [address] Jun [facility] [place] [address] [id number] [place] [address] Jun Abnormal mammogram of right breast R92.8 and Breast asymmetry N64.89 [facility] [place] [address] [id number] [place] [address] Jun [facility] [place] [address] [id number] [place] [address] Jun [facility] [place] [address] [id number] [place] [address] May Hypoglycemia E16.2 [facility] [place] [address] [id number] [place] [address] May Abnormal neurological exam R29.90 [facility] [place] [address] [id number] [place] [address] May [facility] [place] [address] [id number] [place] [address] May Type 2 diabetes mellitus with hyperglycemia E11.65 [facility] [place] [address] [id number] [place] [address] May Breast cancer screening Z12.31 and Hematuria, unspecified type R31.9 [facility] [place] [address] [id number] [place] [address] May [facility] [place] [address] [id number] [place] [address] May Type 2 diabetes mellitus with hyperglycemia E11.65 ; Essential hypertension I10 ; Moderately severe depression F32.2 and Confusion R41.0 [facility] [address] [facility] [id number] [place] [address] May, [facility] [place] [address] [id number] [place] [address] May Cerebrovascular accident (CVA), unspecified mechanism I63.9 ; Essential hypertension I10 ; Hyperlipidemia, unspecified E78.5 and Type 2 diabetes mellitus with hyperglycemia E11.65 [facility] [address] [facility] [id number] [place] [address] May, [facility] [address] [facility] [id number] [place] [address] May, [facility] [place] [address] [id number] [place] [address] May [facility] [place] [address] [id number] [place] [address] May Diabetic neuropathy E11.40 and Diabetes E11.9 [facility] [place] [address] [id number] [place] [address] Apr [facility] [place] [address] [id number] [place] [address] Apr Subacute maxillary sinusitis J01.00 ; Hypoglycemia associated with type 2 diabetes mellitus E11.649 and Intractable episodic headache, unspecified headache type R51 [facility] [place] [address] [id number] [place] [address] Apr Diabetic neuropathy E11.40 and Anxiety F41.9 [facility] [place] [address] [id number] [place] [address] Apr [facility] [place] [address] [id number] [place] [address] Apr Type 2 diabetes mellitus with hyperglycemia E11.65 ; Subacute maxillary sinusitis J01.00 ; Diabetic neuropathy E11.40 and Sleep apnea in adult G47.30 [facility] [address] [facility] [id number] [place] [address] Apr, [facility] [place] [address] [id number] [place] [address] Apr [facility] [place] [address] [id number] [place] [address] Apr [facility] [place] [address] [id number] [place] [address] Apr Subacute maxillary sinusitis J01.00 [place] [address] [address] Apr, Right foot drop M21.371 [facility] [place] [address] [id number] [place] [address] Apr [facility] [place] [address] [id number] [place] [address] Mar [facility] [place] [address] [id number] [place] [address] Mar Essential hypertension I10 ; Type 2 diabetes mellitus with hyperglycemia E11.65 ; Encounter for immunization Z23 ; Cocaine abuse F14.10 and Hyperlipidemia, unspecified E78.5 [facility] [place] [address] [id number] [place] [address] Mar [place] [address] [address] Mar, [facility] [place] [address] [id number] [place] [address] Feb [facility] [place] [address] [id number] [place] [address] Feb Type 2 diabetes mellitus with hyperglycemia E11.65 and Acute right ankle pain M25.571 [facility] [place] [address] [id number] [place] [address] Feb Weight loss R63.4 and Anxiety F41.9 [place] [address] [address] Jan, [place] [address] [address] Jan, [place] [address] [place] [id number] [address] Jan, [place] [address] [address] Jan, Diabetes E11.9 [facility] [place] [address] [id number] [place] [address] Jan Sprain of right ankle, unspecified ligament, initial encounter S93.401A [facility] MAN [address] [id number] [place] [address] Jan Essential hypertension I10 ; Anxiety F41.9 and Type 2 diabetes mellitus with hyperglycemia E11.65 [facility] [address] [place] [address] Jan, Diabetes E11.9 [facility] [address] [id number] [place] [address] Jan, [facility] [id number] [place] [address] Jan, [facility] MAN [address] [id number] [place] [address] Jan [facility] [id number] [place] [address] Jan, [facility] [id number] [place] [address] Jan, [facility] [id number] [place] [address] Jan, [facility] [id number] [place] [address] Jan, [facility] [address] [place] [address] Jan, Unintentional weight loss R63.4 ; Stage 2 chronic kidney disease N18.2 ; Exposure to hepatitis C Z20.5 ; Diabetic neuropathy E11.40 ; Obstructive sleep apnea syndrome G47.33 ; Essential hypertension I10 and Type 2 diabetes mellitus with hyperglycemia E11.65 [facility] [id number] [place] [address] Jan, [facility] [address] [place] [address] Jan, Type 2 diabetes mellitus with hyperglycemia E11.65 ; Diabetic neuropathy E11.40 and Essential hypertension I10 [place] [address] [address] Dec, Diabetes E11.9 [facility] [address] [address] Dec, [facility] [address] [address] Dec, [facility] [address] [place] [address] Dec, [facility] [address] [address] Dec, Dental examination Z01.20 [facility] [address] [place] [address] Dec, [facility] [address] [place] [address] Dec, Diabetes E11.9 [facility] [address]65100[place] [address] Dec, Stage 2 chronic kidney disease N18.2 ; Exposure to hepatitis C Z20.5 ; Obstructive sleep apnea syndrome G47.33 and Type 2 diabetes mellitus with hyperglycemia E11.65 [facility] [address] [place] [id number] [address] Dec, [facility] [address] [id number] [place] [address] Dec Diabetes E11.9 and Essential hypertension I10 [facility] [address] [place] [address] [id number] [address] Nov, Diabetes E11.9 [facility] [address] [place] [address] [id number] [address] Nov, Right foot pain M79.671 [place] [address] [id number] [address] Nov, Right foot pain M79.671 [facility] MAN [address] [id number] [place] [address] Nov Diabetes E11.9 [facility] [place] [address] [id number] [place] [address] Nov Diabetes E11.9 [facility] [address] [id number] [place] [address] Nov, 2016 Dental examination Z01.20 [facility] [place] [address] [id number] [place] [address] 09 Nov Diabetes E11.9 ; Cocaine abuse F14.10 and Shingles (herpes zoster) polyneuropathy B02.23 [facility] [place] [address] [id number] [place] [address] Nov [facility] [address] [facility] [id number] [place] [address] October, [facility] [place] [address] [id number] [place] [address] October [facility] [place] [address] [id number] [place] [address] October Unintentional weight loss R63.4 [facility] [place] [address] [id number] [place] [address] October Abscess L02.91 [facility] [place] [address] [id number] [place] [address] October Diabetes E11.9 ; Unintentional weight loss R63.4 ; History of hematuria Z87.448 and Cocaine abuse F14.10 [facility] [place] [address] [id number] [place] [address] October Diabetes E11.9 [facility] [place] [address] [id number] [place] [address] October Essential hypertension I10 and Abscess L02.91 [facility] [place] [address] [id number] [place] [address] Jun [facility] [place] [address] [id number] [place] [address] May Breast cancer screening Z12.39 ; Diabetes E11.9 and Anxiety F41.9 [facility] [address] [facility] [id number] [place] [id number] 16 May, 2016 Diabetes E11.9 [facility] [place] [address] [id number] [place] [address] 15 May Diabetes E11.9 and Anemia D64.9 [facility] [place] [address] [id number] [place] [address] 14 May Anxiety F41.9 [facility] [place] [address] [id number] [place] [address] 08 May [facility] [place] [address] [id number] [place] [address] May Dysuria R30.0 [facility] [place] [address] [id number] [place] [address] May [facility] [place] [address] [id number] [place] [address] May Dysuria R30.0 and Vaginal itching L29.8 [facility] [address] [address] Apr, [facility] [address] [id number] [place] [address] Apr Diabetes E11.9 ; Dysuria R30.0 ; Diabetic neuropathy E11.40 ; Anemia D64.9 and Vaginal discharge N89.8 [facility] [address]005[address]100[place] [address] Jun, [place] [id number] [address] Jun, Anemia D64.9 ; Anxiety F41.9 ; Diabetes E11.9 and Diabetic neuropathy E11.40 [address]00565100[place] [id number] May, [facility] [address] [address] Apr, [place] [id number] [address] Apr, Anemia D64.9 ; Anxiety F41.9 ; Diabetes E11.9 and Diabetic neuropathy E11.40 [place] [address] [place] [id number] Mar, Acute costochondritis M94.0 [place] [address] [place] [id number] Mar, Bilateral low back pain without sciatica M54.5 and Bereavement Z63.[address] [id number] Mar, Obstructive chronic bronchitis with acute exacerbation J44.1 ; Herpes zoster without complication B02.9 and [place] N91.2 [place] [address] [place] [id number] Mar, [place] [address] [place] [id number] Mar, [place] [address] [place] [id number] Feb, History of recent traumatic injury of head V15.52 ; Diabetes type 2, uncontrolled 250.02 and Visual disturbance 368.9 [address]00565100[place] [phone] Feb, History of recent traumatic injury of head V15.52 ; Visual disturbance 368.9 and Diabetes type 2, uncontrolled 250.02 IMMUNIZATIONS No Known Immunizations SOCIAL HISTORY Never Assessed REASON FOR VISIT Dental Screening PLAN OF CARE Activity Details Follow Up prn Reason:dental wellness VITAL SIGNS MEDICATIONS Unknown Medications RESULTS No Results PROCEDURES Procedure Date Ordered Result Body Site SCREENING OF A PATIENT January 01, 2017 Billing Notes on claim January 01, 2017 INSTRUCTIONS MEDICATIONS ADMINISTERED No Known Medications [...] infection 2005 Hospitalization History in rehab at [facility] 2017 Hospitalization History Stroke 05/2017 Hospitalization History surgeries Hospitalization History Elevated B/S 07/2017
--- OUTSIDE RECORDS SUMMARY | 2018-05-13 11:06 | XMS REPORT ---
Author Author BARRETT SCHRADER Organization [facility] Address [address] [place] [address] Care Team Providers Care Croze Cutter Name Role Phone BARRETT SCHRADER Unavailable PROBLEMS Type Condition ICD9-CM Code LIX80-BA Code Onset Dates Condition Status SNOMED Code Problem Type 2 diabetes mellitus with hyperglycemia E11.65 Active 778304300867667 Problem Sleep apnea in adult G47.30 Active 07469281 Problem Hyperlipidemia, unspecified E78.5 Active 85436616 Problem Abnormal mammogram of right breast R92.8 Active 989580449 Problem Breast asymmetry N64.89 Active 844131676 Problem Moderately severe depression F32.2 Active 381071494 Problem Hypoglycemia associated with type 2 diabetes mellitus E11.649 Active 534294160 Problem Hypoglycemia E16.2 Active 045042507 Problem Cerebrovascular accident (CVA), unspecified mechanism I63.9 Active 196884755 Problem Essential hypertension I10 Active 43382942 Problem Cocaine abuse F14.10 Active 10838201 Problem Diabetic neuropathy E11.40 Active 723068919 Problem Stage 2 chronic kidney disease N18.2 Active 411202814 Problem Anxiety F41.9 Active 15705944 Problem Obstructive sleep apnea syndrome G47.33 Active 90258663 ALLERGIES No Information ENCOUNTERS Encounter Location Date Diagnosis [facility] [address] [id number] [place] [address] Nov [facility] [address] [id number] [place] [address] Nov [facility] [place] [address] [id number] [place] [address] October [facility] [address] [id number] [place] [address] October [facility] [address] [id number] [place] [address] October Type 2 diabetes mellitus with hyperglycemia E11.65 and Surgical procedure on lower extremity within past 6 months Z98.890 [facility] [place] [address] [id number] [place] [address] October [facility] [place] [address] [id number] [place] [address] October [facility] [address] [facility] [id number] [place] [address] October, [facility] [place] [address] [id number] [place] [address] October Sleep apnea in adult G47.30 [facility] [place] [address] [id number] [place] [address] October Type 2 diabetes mellitus with hyperglycemia E11.65 [facility] [place] [address] [id number] [place] [address] Sep [facility] [place] [address] [id number] [place] [address] Sep Breast asymmetry N64.89 [facility] [place] [address] [id number] [place] [address] Sep [facility] [place] [address] [id number] [place] [address] Sep Type 2 diabetes mellitus with hyperglycemia E11.65 ; Cocaine abuse F14.10 and Open wound of right great toe, subsequent encounter S91.101D [facility] [place] [address] [id number] [place] [address] Sep [facility] [place] [address] [id number] [place] [address] Aug [facility] [place] [address] [id number] [place] [address] Aug [facility] [place] [address] [id number] [place] [address] Aug Type 2 diabetes mellitus with hyperglycemia E11.65 [facility] [place] [address] [id number] [place] [address] Aug [facility] [address] [facility] [id number] [place] [address] Aug, [facility] [place] [address] [id number] [place] [address] Jul [facility] [place] [address] [id number] [place] [address] Jul Diabetic neuropathy E11.40 ; Essential hypertension I10 and Type 2 diabetes mellitus with hyperglycemia E11.65 [facility] [place] [address] [id number] [place] [address] Jul [facility] [place] [address] [id number] [place] [address] Jul [facility] [place] [address] [id number] [place] [address] Jul [facility] [place] [address] [id number] [place] [address] Jul [facility] [place] [address] [id number] [place] [address] Jul [facility] [place] [address] [id number] [place] [address] Jul Type 2 diabetes mellitus with hyperglycemia E11.65 ; Open wound of right great toe, subsequent encounter S91.101D ; Essential hypertension I10 and Diabetic neuropathy E11.40 [facility] [address] [id number] [place] [address] Jul, [facility] [place] [address] [id number] [place] [address] Jun [facility] [place] [address] [id number] [place] [address] Jun Type 2 diabetes mellitus with hyperglycemia E11.65 [facility] [place] [address] [id number] [place] [address] Jun [facility] [place] [address] [id number] [place] [address] Jun [facility] [place] [address] [id number] [place] [address] Jun Abnormal mammogram of right breast R92.8 and Breast asymmetry N64.89 [facility] [place] [address] [id number] [place] [address] Jun [facility] [place] [address] [id number] [place] [address] Jun [facility] [place] [address] [id number] [place] [address] May Hypoglycemia E16.2 [facility] [place] [address] [id number] [place] [address] May Abnormal neurological exam R29.90 [facility] [place] [address] [id number] [place] [address] May [facility] [place] [address] [id number] [place] [address] May Type 2 diabetes mellitus with hyperglycemia E11.65 [facility] [place] [address] [id number] [place] [address] May Breast cancer screening Z12.31 and Hematuria, unspecified type R31.9 [facility] [place] [address] [id number] [place] [address] May [facility] [place] [address] [id number] [place] [address] May Type 2 diabetes mellitus with hyperglycemia E11.65 ; Essential hypertension I10 ; Moderately severe depression F32.2 and Confusion R41.0 [place] [address] [address] May, [facility] [place] [address] [id number] [place] [address] May Cerebrovascular accident (CVA), unspecified mechanism I63.9 ; Essential hypertension I10 ; Hyperlipidemia, unspecified E78.5 and Type 2 diabetes mellitus with hyperglycemia E11.65 [place] [address] [address] May, [place] [address] [place] [id number] [place] [address] May, [facility] [place] [address] [id number] [place] [address] May [facility] [place] [address] [id number] [place] [address] May Diabetic neuropathy E11.40 and Diabetes E11.9 [facility] [place] [address] [id number] [place] [address] Apr [facility] [place] [address] [id number] [place] [address] Apr Subacute maxillary sinusitis J01.00 ; Hypoglycemia associated with type 2 diabetes mellitus E11.649 and Intractable episodic headache, unspecified headache type R51 [facility] [place] [address] [id number] [place] [address] Apr Diabetic neuropathy E11.40 and Anxiety F41.9 [facility] [place] [address] [id number] [place] [address] Apr [facility] [place] [address] [id number] [place] [address] Apr Type 2 diabetes mellitus with hyperglycemia E11.65 ; Subacute maxillary sinusitis J01.00 ; Diabetic neuropathy E11.40 and Sleep apnea in adult G47.30 [facility] [address] [facility] [id number] [place] [address] Apr, [facility]K [place] [address] [id number] [place] [address] Apr [facility] [place] [address] [id number] [place] [address] Apr [facility] [place] [address] [id number] [place] [address] Apr Subacute maxillary sinusitis J01.00 [facility] [address] [facility] [id number] [place] [address] Apr, Right foot drop M21.371 [facility] [place] [address] [id number] [place] [address] Apr [facility] [place] [address] [id number] [place] [address] Mar [facility] [address] [id number] [place] [address] Mar Essential hypertension I10 ; Type 2 diabetes mellitus with hyperglycemia E11.65 ; Encounter for immunization Z23 ; Cocaine abuse F14.10 and Hyperlipidemia, unspecified E78.5 [facility] [place] [address] [id number] [place] [address] Mar [place] [address] [address] Mar, [facility] [place] [address] [id number] [place] [address] Feb [facility] [place] [address] [id number] [place] [address] Feb Type 2 diabetes mellitus with hyperglycemia E11.65 and Acute right ankle pain M25.571 [facility] [place] [address] [id number] [place] [address] Feb Weight loss R63.4 and Anxiety F41.9 [place] [address] [id number] [place] [address] Jan, [place] [address] [id number] [place] [address] Jan, [place] [address] [place] [address] Jan, [place] [id number] [address] Jan, Diabetes E11.9 [facility] [place] [address] [id number] [place] [address] Jan Sprain of right ankle, unspecified ligament, initial encounter S93.401A [facility] [place] [address] [id number] [place] [address] Jan Essential hypertension I10 ; Anxiety F41.9 and Type 2 diabetes mellitus with hyperglycemia E11.65 [place] [address] [facility] [id number] [address] Jan, Diabetes E11.9 [facility] [address] [facility] [id number] [address] Jan, [facility] [address] [address] Jan, [address] [id number] [place] [address] Jan [facility] [address] [facility] [id number] [address] Jan, [facility] [address] [address] Jan, [facility] [address] [address] Jan, [facility] [address] [address] Jan, [facility] [address] [address] Jan, Unintentional weight loss R63.4 ; Stage 2 chronic kidney disease N18.2 ; Exposure to hepatitis C Z20.5 ; Diabetic neuropathy E11.40 ; Obstructive sleep apnea syndrome G47.33 ; Essential hypertension I10 and Type 2 diabetes mellitus with hyperglycemia E11.65 [facility] [address] [address] Jan, [facility] [address] [id number] [address] Jan, Type 2 diabetes mellitus with hyperglycemia E11.65 ; Diabetic neuropathy E11.40 and Essential hypertension I10 [facility] [address] [id number] [address] Dec, Diabetes E11.9 [facility] [address] [id number] [address] Dec, [facility] [address] [address] Dec, [facility] [address] [address] Dec, [facility] [address] [address] Dec, Dental examination Z01.20 [facility] [id number] [place] [address] Dec, [facility] [address] [place] [address] Dec, Diabetes E11.9 [place] [address] [place] [address] Dec, Stage 2 chronic kidney disease N18.2 ; Exposure to hepatitis C Z20.5 ; Obstructive sleep apnea syndrome G47.33 and Type 2 diabetes mellitus with hyperglycemia E11.65 [facility] [address]005[address] [address] Dec, [facility] [place] [address] [id number] [place] [address] Dec Diabetes E11.9 and Essential hypertension I10 [facility] [address]005[address] [address] Nov, Diabetes E11.9 [facility] [address]005[address] [address] Nov, Right foot pain M79.671 [facility] [id number] [address] Nov, Right foot pain M79.671 [facility] [place] [address] [id number] [place] [address] Nov Diabetes E11.9 [facility] [place] [address] [id number] [place] [address] Nov Diabetes E11.9 [facility] [address] [address] 16 Nov, 2016 Dental examination Z01.20 [facility] [place] [address] [id number] [place] [address] 09 Nov Diabetes E11.9 ; Cocaine abuse F14.10 and Shingles (herpes zoster) polyneuropathy B02.23 [facility] [place] [address] [id number] [place] [address] Nov [facility] [address] [facility] [id number] [place] [address] October, [facility] [place] [address] [id number] [place] [address] October [facility] [place] [address] [id number] [place] [address] October Unintentional weight loss R63.4 [facility] [place] [address] [id number] [place] [address] October Abscess L02.91 [facility] [place] [address] [id number] [place] [address] October Diabetes E11.9 ; Unintentional weight loss R63.4 ; History of hematuria Z87.448 and Cocaine abuse F14.10 [facility] [place] [address] [id number] [place] [address] October Diabetes E11.9 [facility] [place] [address] [id number] [place] [address] October Essential hypertension I10 and Abscess L02.91 [facility] [place] [address] [id number] [place] [address] Jun [facility] [place] [address] [id number] [place] [address] May Breast cancer screening Z12.39 ; Diabetes E11.9 and Anxiety F41.9 [facility] [place] [address] [id number] [place] [address] May, Diabetes E11.9 [facility] [place] [address] [id number] [place] [address] May Diabetes E11.9 and Anemia D64.9 [facility] [place] [address] [id number] [place] [address] 14 May Anxiety F41.9 [facility] [place] [address] [id number] [place] [address] 08 May [facility] [place] [address] [id number] [place] [address] May Dysuria R30.0 [facility] [place] [address] [id number] [place] [address] 06 May [facility] [place] [address] [id number] [place] [address] 05 May Dysuria R30.0 and Vaginal itching L29.8 [facility] [address]005[address]100[place] [address] Apr, [facility] [place] [address] [id number] [place] [address] Apr Diabetes E11.9 ; Dysuria R30.0 ; Diabetic neuropathy E11.40 ; Anemia D64.9 and Vaginal discharge N89.8 [facility] [id number] [place] [address] Jun, [address]00565100[place] [address] Jun, Anemia D64.9 ; Anxiety F41.9 ; Diabetes E11.9 and Diabetic neuropathy E11.[address]00565100[place] [address] May, [facility] [address] [place] [address] Apr, [place] [id number] [place] [id number] Apr, Anemia D64.9 ; Anxiety F41.9 ; Diabetes E11.9 and Diabetic neuropathy E11.40 [place] [address] [place] [id number] Mar, Acute costochondritis M94.0 [address]005[address]100[place] [address] Mar, Bilateral low back pain without sciatica M54.5 and Bereavement Z63.[address]00565100[place] [id number] 14 Mar, 2015 Obstructive chronic bronchitis with acute exacerbation J44.1 ; Herpes zoster without complication B02.9 and Cantril N91.[address]005[address]100[place] [address] Mar, [place] [address] [id number] Mar, [address]005[address]100[place] [id number] 24 Feb, 2015 History of recent traumatic injury of head V15.52 ; Diabetes type 2, uncontrolled 250.02 and Visual disturbance 368.9 [place] [id number] [address] Feb, History of recent traumatic injury of head V15.52 ; Visual disturbance 368.9 and Diabetes type 2, uncontrolled 250.02 IMMUNIZATIONS No Known Immunizations SOCIAL HISTORY Never Assessed REASON FOR VISIT Disability Paperwork PLAN OF CARE VITAL SIGNS MEDICATIONS Unknown [...] infection 2004 Hospitalization History in rehab at [facility] 2016 Hospitalization History Stroke 05/2017 Hospitalization History surgeries Hospitalization History Elevated B/S 07/2017 Hospitalization History [facility] - blood clot LRE 10/2017
--- OUTSIDE RECORDS SUMMARY | 2018-05-13 11:06 | XMS REPORT ---
Author Author BARRETT SCHRADER Organization [facility] Address [address] [place] [address] Care Team Providers Care Claim Approver Name Role Phone BARRETT SCHRADER Unavailable PROBLEMS Type Condition ICD9-CM Code KWT03-QV Code Onset Dates Condition Status SNOMED Code Problem Type 2 diabetes mellitus with hyperglycemia E11.65 Active 202095147582415 Problem Sleep apnea in adult G47.30 Active 22633005 Problem Hyperlipidemia, unspecified E78.5 Active 33606012 Problem Abnormal mammogram of right breast R92.8 Active 636793518 Problem Breast asymmetry N64.89 Active 427961988 Problem Moderately severe depression F32.2 Active 382006836 Problem Hypoglycemia associated with type 2 diabetes mellitus E11.649 Active 559822514 Problem Hypoglycemia E16.2 Active 743135388 Problem Cerebrovascular accident (CVA), unspecified mechanism I63.9 Active 723474136 Problem Essential hypertension I10 Active 43414913 Problem Cocaine abuse F14.10 Active 69165975 Problem Diabetic neuropathy E11.40 Active 086072202 Problem Stage 2 chronic kidney disease N18.2 Active 468205230 Problem Anxiety F41.9 Active 48675582 Problem Obstructive sleep apnea syndrome G47.33 Active 73402853 ALLERGIES No Information ENCOUNTERS Encounter Location Date Diagnosis [facility] [address] [id number] [place] [address] Sep [facility] [address] [id number] [place] [address] Sep Breast asymmetry N64.89 [facility] [place] [address] [id number] [place] [address] Sep [facility] [address] [id number] [place] [address] Sep Type 2 diabetes mellitus with hyperglycemia E11.65 ; Cocaine abuse F14.10 and Open wound of right great toe, subsequent encounter S91.101D [facility] [place] [address] [id number] [place] [address] Sep [facility] [place] [address] [id number] [place] [address] Aug [facility] [place] [address] [id number] [place] [address] Aug [facility] [place] [address] [id number] [place] [address] Aug Type 2 diabetes mellitus with hyperglycemia E11.65 [facility] [place] [address] [id number] [place] [address] Aug [facility] [address] [facility] [id number] [place] [address] Aug, [facility] [place] [address] [id number] [place] [address] Jul [facility] [place] [address] [id number] [place] [address] Jul Diabetic neuropathy E11.40 ; Essential hypertension I10 and Type 2 diabetes mellitus with hyperglycemia E11.65 [facility] [place] [address] [id number] [place] [address] Jul [facility] [place] [address] [id number] [place] [address] Jul [facility] [place] [address] [id number] [place] [address] Jul [facility] [place] [address] [id number] [place] [address] Jul [facility] [place] [address] [id number] [place] [address] Jul [facility] [place] [address] [id number] [place] [address] Jul Type 2 diabetes mellitus with hyperglycemia E11.65 ; Open wound of right great toe, subsequent encounter S91.101D ; Essential hypertension I10 and Diabetic neuropathy E11.[address] [facility] [address] [id number] [place] [id number] 05 Jul, 2017 [facility] [place] [address] [id number] [place] [address] Jun [facility] [place] [address] [id number] [place] [address] Jun Type 2 diabetes mellitus with hyperglycemia E11.65 [facility] [place] [address] [id number] [place] [address] Jun [facility] [place] [address] [id number] [place] [address] Jun [facility] [place] [address] [id number] [place] [address] 17 Jun Abnormal mammogram of right breast R92.8 and Breast asymmetry N64.89 [facility] [place] [address] [id number] [place] [address] 15 Jun [facility] [place] [address] [id number] [place] [address] Jun [facility] [place] [address] [id number] [place] [address] May Hypoglycemia E16.2 [facility] [place] [address] [id number] [place] [address] May Abnormal neurological exam R29.90 [facility] [place] [address] [id number] [place] [address] May [facility] [place] [address] [id number] [place] [address] May Type 2 diabetes mellitus with hyperglycemia E11.65 [facility] [place] [address] [id number] [place] [address] May Breast cancer screening Z12.31 and Hematuria, unspecified type R31.9 [facility] [place] [address] [id number] [place] [address] May [facility] [place] [address] [id number] [place] [address] May Type 2 diabetes mellitus with hyperglycemia E11.65 ; Essential hypertension I10 ; Moderately severe depression F32.2 and Confusion R41.0 [place] [address] [id number] [place] [address] May, [facility] [address] [id number] [place] [address] May Cerebrovascular accident (CVA), unspecified mechanism I63.9 ; Essential hypertension I10 ; Hyperlipidemia, unspecified E78.5 and Type 2 diabetes mellitus with hyperglycemia E11.65 [place] [address] [id number] [place] [address] May, [place] [address] [id number] [address] May, [facility] [address] [id number] [place] [address] May [facility] [address] [id number] [place] [address] May Diabetic neuropathy E11.40 and Diabetes E11.9 [facility] [place] [address] [id number] [place] [address] Apr [facility] [address] [id number] [place] [address] Apr Subacute maxillary sinusitis J01.00 ; Hypoglycemia associated with type 2 diabetes mellitus E11.649 and Intractable episodic headache, unspecified headache type R51 [facility] [place] [address] [id number] [place] [address] Apr Diabetic neuropathy E11.40 and Anxiety F41.9 [facility] [place] [address] [id number] [place] [address] Apr [facility] [address] [id number] [place] [address] Apr Type 2 diabetes mellitus with hyperglycemia E11.65 ; Subacute maxillary sinusitis J01.00 ; Diabetic neuropathy E11.40 and Sleep apnea in adult G47.30 [place] [address] [facility] [id number] [address] Apr, [facility] [place] [address] [id number] [place] [address] Apr [facility] [place] [address] [id number] [place] [address] Apr [facility] [place] [address] [id number] [place] [address] Apr Subacute maxillary sinusitis J01.00 [facility] [address], [place] [address] Apr, Right foot drop M21.371 [facility] [place] [address] [id number] [place] [address] Apr [facility] [place] [address] [id number] [place] [address] Mar [facility] [place] [address] [id number] [place] [address] Mar Essential hypertension I10 ; Type 2 diabetes mellitus with hyperglycemia E11.65 ; Encounter for immunization Z23 ; Cocaine abuse F14.10 and Hyperlipidemia, unspecified E78.5 [facility] [place] [address] [id number] [place] [address] Mar [facility] [address], [place] [address] Mar, [facility] [place] [address] [id number] [place] [address] Feb [facility] [place] [address] [id number] [place] [address] Feb Type 2 diabetes mellitus with hyperglycemia E11.65 and Acute right ankle pain M25.571 [facility] [place] [address] [id number] [place] [address] Feb Weight loss R63.4 and Anxiety F41.9 [facility] [address] [id number] [place] [address] Jan, [facility] [address], [place] [address] Jan, [facility] [address], [place] [address] Jan, [facility] [address] [place] [address] Jan, Diabetes E11.9 [facility] MAN [address] [id number] [place] [address] Jan Sprain of right ankle, unspecified ligament, initial encounter S93.401A [facility] MAN [address] [id number] [place] [address] Jan Essential hypertension I10 ; Anxiety F41.9 and Type 2 diabetes mellitus with hyperglycemia E11.65 [facility] [address] [place] [address] Jan, Diabetes E11.9 [facility] [address] [place] [address] Jan, [facility] [address], [place] [address] Jan, [facility] [place] [address] [id number] [place] [address] Jan [facility] [address], [place] [address] Jan, [facility] [address]100[place], [place] [address] Jan, [facility] [address], [place] [address] Jan, [facility] [address], [place] [address] Jan, [facility] [address], [place] [address] Jan, Unintentional weight loss R63.4 ; Stage 2 chronic kidney disease N18.2 ; Exposure to hepatitis C Z20.5 ; Diabetic neuropathy E11.40 ; Obstructive sleep apnea syndrome G47.33 ; Essential hypertension I10 and Type 2 diabetes mellitus with hyperglycemia E11.65 [facility] [address], [place] [address] Jan, [facility] [address] [place] [address] Jan, Type 2 diabetes mellitus with hyperglycemia E11.65 ; Diabetic neuropathy E11.40 and Essential hypertension I10 [facility] [address] [place] [address] Dec, Diabetes E11.9 [facility] [address] [place] [address] Dec, [facility] [address] [place] [address] Dec, [facility] [address] [place] [address] Dec, [facility] [address] [place] [address] Dec, Dental examination Z01.20 [facility] [address], [place] [address] Dec, [facility] [address], [place] [address] Dec, Diabetes E11.9 [facility] [address], [place] [address] Dec, Stage 2 chronic kidney disease N18.2 ; Exposure to hepatitis C Z20.5 ; Obstructive sleep apnea syndrome G47.33 and Type 2 diabetes mellitus with hyperglycemia E11.65 [facility] [address], [place] [address] Dec, [facility] [place] [address] [id number] [place] [address] Dec Diabetes E11.9 and Essential hypertension I10 [facility] [address], [place] [address] Nov, Diabetes E11.9 [facility] [address] [facility] [id number] [place] [address] Nov, Right foot pain M79.671 [facility] [address] [id number] [place] [address] Nov, Right foot pain M79.671 [facility] [place] [address] [id number] [place] [address] Nov Diabetes E11.9 [facility] [place] [address] [id number] [place] [address] Nov Diabetes E11.9 [facility] [address] [facility] [id number] [place] [id number] Nov, Dental examination Z01.20 [facility] [place] [address] [id number] [place] [address] Nov Diabetes E11.9 ; Cocaine abuse F14.10 and Shingles (herpes zoster) polyneuropathy B02.23 [facility] [place] [address] [id number] [place] [address] Nov [facility] [address] [facility] [id number] [place] [address] October, [facility] [place] [address] [id number] [place] [address] October [facility] [place] [address] [id number] [place] [address] October Unintentional weight loss R63.4 [facility] [place] [address] [id number] [place] [address] October Abscess L02.91 [facility] [place] [address] [id number] [place] [address] October Diabetes E11.9 ; Unintentional weight loss R63.4 ; History of hematuria Z87.448 and Cocaine abuse F14.10 [facility] [place] [address] [id number] [place] [address] October Diabetes E11.9 [facility] [place] [address] [id number] [place] [address] October Essential hypertension I10 and Abscess L02.91 [facility] [place] [address] [id number] [place] [address] Jun [facility] [place] [address] [id number] [place] [address] May Breast cancer screening Z12.39 ; Diabetes E11.9 and Anxiety F41.9 [facility] [address] [id number] [id number] May, Diabetes E11.9 [facility] [place] [address] [id number] [place] [address] 15 May Diabetes E11.9 and Anemia D64.9 [facility] [place] [address] [id number] [place] [address] May Anxiety F41.9 [facility] [place] [address] [id number] [place] [address] May [facility] [place] [address] [id number] [place] [address] May Dysuria R30.0 [facility] [place] [address] [id number] [place] [address] 06 May [facility] [place] [address] [id number] [place] [address] 05 May Dysuria R30.0 and Vaginal itching L29.8 [place] [address] [id number], [place] [address] Apr, [facility] [place] [address] [id number] [place] [address] 14 Apr Diabetes E11.9 ; Dysuria R30.0 ; Diabetic neuropathy E11.40 ; Anemia D64.9 and Vaginal discharge N89.8 [facility] [address] [id number], [place] [address] Jun, [facility] [address] [facility] [id number] [address] Jun, Anemia D64.9 ; Anxiety F41.9 ; Diabetes E11.9 and Diabetic neuropathy E11.40 [address]00565100[place] [address] May, [facility] [address] [id number] [address] Apr, [place] [id number] [place] [id number] Apr, Anemia D64.9 ; Anxiety F41.9 ; Diabetes E11.9 and Diabetic neuropathy E11.40 [place] [id number] [place] [id number] Mar, Acute costochondritis M94.0 [place] [id number] [place] [id number] Mar, Bilateral low back pain without sciatica M54.5 and Bereavement Z63.4 [place] [id number] [place] [phone] Mar, Obstructive chronic bronchitis with acute exacerbation J44.1 ; Herpes zoster without complication B02.9 and [place] N91.[address] [place] [id number] Mar, [place] [id number] [id number] Mar, [place] [id number] [place] [id number] Feb, History of recent traumatic injury of head V15.52 ; Diabetes type 2, uncontrolled 250.02 and Visual disturbance 368.9 [place] [address] [place] [id number] Feb, History of recent traumatic injury of head V15.52 ; Visual disturbance 368.9 and Diabetes type 2, uncontrolled 250.02 IMMUNIZATIONS No Known Immunizations SOCIAL HISTORY Never Assessed REASON FOR VISIT 1 mo f/u DM Ed PLAN OF CARE VITAL [...] infection 2004 Hospitalization History in rehab at [facility] 2016 Hospitalization History Stroke 05/2017 Hospitalization History surgeries Hospitalization History Elevated B/S 07/2017
--- OUTSIDE RECORDS SUMMARY | 2018-05-13 11:07 | XMS REPORT ---
Author Author CHRIS BECKWITH [facility] Address [address] [place] [address] Care Team Providers Care Pouch Maker Name Role Phone CHRIS BECKWITH Unavailable PROBLEMS Type Condition ICD9-CM Code KEC71-VN Code Onset Dates Condition Status SNOMED Code Problem Sleep apnea in adult G47.30 Active 19655141 Problem Moderately severe depression F32.2 Active 436093859 Problem Hypoglycemia associated with type 2 diabetes mellitus E11.649 Active 981358235 Problem PVD (peripheral vascular disease) I73.9 Active 830151946 Problem PAD (peripheral artery disease) I73.9 Active 549404915 Problem Hypoglycemia E16.2 Active 535725337 Problem Cerebrovascular accident (CVA), unspecified mechanism I63.9 Active 318219493 Problem Breast asymmetry N64.89 Active 456354365 Problem Abnormal mammogram of right breast R92.8 Active 253892929 Problem Diabetic neuropathy E11.40 Active 913613074 Problem Anxiety F41.9 Active 95790513 Problem Obstructive sleep apnea syndrome G47.33 Active 61303568 Problem Stage 2 chronic kidney disease N18.2 Active 571668275 Problem Essential hypertension I10 Active 61136111 Problem Type 2 diabetes mellitus with hyperglycemia E11.65 Active 990884192950017 Problem Cocaine abuse F14.10 Active 30025494 Problem Hyperlipidemia, unspecified E78.5 Active 89668569 ALLERGIES No Information ENCOUNTERS Encounter Location Date Diagnosis [facility] [address] [id number] [place] [address] Nov [facility] [address] [id number] [place] [address] Nov [facility] [address] [id number] [place] [address] Nov PVD (peripheral vascular disease) I73.9 ; Type 2 diabetes mellitus with hyperglycemia E11.65 and PAD (peripheral artery disease) I73.9 [facility] [place] [address] [id number] [place] [address] Nov [facility] [place] [address] [id number] [place] [address] Nov [facility] [place] [address] [id number] [place] [address] Nov [facility] [place] [address] [id number] [place] [address] October [facility] [place] [address] [id number] [place] [address] October [facility] [place] [address] [id number] [place] [address] October Type 2 diabetes mellitus with hyperglycemia E11.65 and Surgical procedure on lower extremity within past 6 months Z98.890 [facility] [place] [address] [id number] [place] [address] October [facility] [place] [address] [id number] [place] [address] October [facility] [place] [address] [facility] [id number] [place] [address] October, [facility] [place] [address] [id number] [place] [address] October Sleep apnea in adult G47.30 [facility] [place] [address] [id number] [place] [address] October Type 2 diabetes mellitus with hyperglycemia E11.65 [facility] [place] [address] [id number] [place] [address] Sep [facility] [place] [address] [id number] [place] [address] Sep Breast asymmetry N64.89 [facility] [place] [address] [id number] [place] [address] Sep [facility] [place] [address] [id number] [place] [address] Sep Type 2 diabetes mellitus with hyperglycemia E11.65 ; Cocaine abuse F14.10 and Open wound of right great toe, subsequent encounter S91.101D [facility] [place] [address] [id number] [place] [address] Sep [facility] [place] [address] [id number] [place] [address] Aug [facility] [place] [address] [id number] [place] [address] Aug [facility] [place] [address] [id number] [place] [address] Aug Type 2 diabetes mellitus with hyperglycemia E11.65 [facility] [place] [address] [id number] [place] [address] Aug [facility] [place] [address] [facility] [id number] [place] [address] Aug, [facility] [place] [address] [id number] [place] [address] Jul [facility] [place] [address] [id number] [place] [address] Jul Diabetic neuropathy E11.40 ; Essential hypertension I10 and Type 2 diabetes mellitus with hyperglycemia E11.65 [facility] [place] [address] [id number] [place] [address] Jul [facility] [place] [address] [id number] [place] [address] Jul [facility] [place] [address] [id number] [place] [address] Jul [facility] [place] [address] [id number] [place] [address] Jul [facility] [place] [address] [id number] [place] [address] Jul [facility] [place] [address] [id number] [place] [address] Jul Type 2 diabetes mellitus with hyperglycemia E11.65 ; Open wound of right great toe, subsequent encounter S91.101D ; Essential hypertension I10 and Diabetic neuropathy E11.40 [facility] [address] [id number] [place] [address] Jul, [facility] [place] [address] [id number] [place] [address] Jun [facility] [place] [address] [id number] [place] [address] Jun Type 2 diabetes mellitus with hyperglycemia E11.65 [facility] [place] [address] [id number] [place] [address] Jun [facility] [place] [address] [id number] [place] [address] Jun [facility] [place] [address] [id number] [place] [address] 17 Jun Abnormal mammogram of right breast R92.8 and Breast asymmetry N64.89 [facility] [place] [address] [id number] [place] [address] 15 Jun [facility] [place] [address] [id number] [place] [address] Jun [facility] [place] [address] [id number] [place] [address] May Hypoglycemia E16.2 [facility] [place] [address] [id number] [place] [address] May Abnormal neurological exam R29.90 [facility] [place] [address] [id number] [place] [address] May [facility] [place] [address] [id number] [place] [address] May Type 2 diabetes mellitus with hyperglycemia E11.65 [facility] [place] [address] [id number] [place] [address] May Breast cancer screening Z12.31 and Hematuria, unspecified type R31.9 [facility] [place] [address] [id number] [place] [address] May [facility] [place] [address] [id number] [place] [address] May Type 2 diabetes mellitus with hyperglycemia E11.65 ; Essential hypertension I10 ; Moderately severe depression F32.2 and Confusion R41.0 [place] [address] [address] May, [facility] [place] [address] [id number] [place] [address] May Cerebrovascular accident (CVA), unspecified mechanism I63.9 ; Essential hypertension I10 ; Hyperlipidemia, unspecified E78.5 and Type 2 diabetes mellitus with hyperglycemia E11.65 [place] [address] [address] May, [place] [address] [address] May, [facility] [address] [id number] [place] [address] May [facility] [place] [address] [id number] [place] [address] May Diabetic neuropathy E11.40 and Diabetes E11.9 [facility] [place] [address] [id number] [place] [address] Apr [facility] [place] [address] [id number] [place] [address] Apr Subacute maxillary sinusitis J01.00 ; Hypoglycemia associated with type 2 diabetes mellitus E11.649 and Intractable episodic headache, unspecified headache type R51 [facility] [place] [address] [id number] [place] [address] Apr Diabetic neuropathy E11.40 and Anxiety F41.9 [facility] [place] [address] [id number] [place] [address] Apr [facility] [place] [address] [id number] [place] [address] Apr Type 2 diabetes mellitus with hyperglycemia E11.65 ; Subacute maxillary sinusitis J01.00 ; Diabetic neuropathy E11.40 and Sleep apnea in adult G47.30 [place] [id number] [address] Apr, [facility] [place] [address] [id number] [place] [address] Apr [facility] [place] [address] [id number] [place] [address] Apr [facility] [place] [address] [id number] [place] [address] Apr Subacute maxillary sinusitis J01.00 [place] [address] [address] Apr, Right foot drop M21.371 [facility] [place] [address] [id number] [place] [address] Apr [facility] [place] [address] [id number] [place] [address] Mar [facility] [place] [address] [id number] [place] [address] Mar Essential hypertension I10 ; Type 2 diabetes mellitus with hyperglycemia E11.65 ; Encounter for immunization Z23 ; Cocaine abuse F14.10 and Hyperlipidemia, unspecified E78.5 [facility] [place] [address] [id number] [place] [address] Mar [place] [address] [address] Mar, [facility] [place] [address] [id number] [place] [address] Feb [facility] [place] [address] [id number] [place] [address] Feb Type 2 diabetes mellitus with hyperglycemia E11.65 and Acute right ankle pain M25.571 [facility] [place] [address] [id number] [place] [address] Feb Weight loss R63.4 and Anxiety F41.9 [place] [address] [address] Jan, [place] [address] [place] [id number] [place] [address] Jan, [facility] [address], [place] [address] Jan, [facility] [address], [place] [address] Jan, Diabetes E11.9 [facility] [place] [address] [id number] [place] [address] Jan Sprain of right ankle, unspecified ligament, initial encounter S93.401A [facility] [place] [address] [id number] [place] [address] Jan Essential hypertension I10 ; Anxiety F41.9 and Type 2 diabetes mellitus with hyperglycemia E11.65 [facility] [address] [place] [address] Jan, Diabetes E11.9 [facility] [address] [place] [address] Jan, [facility] [address] [address] Jan, [facility] MAN [address] [id number] [place] [address] Jan [facility] [address], [place] [address] Jan, [facility] [address], [place] [address] Jan, [facility] [address], [place] [address] Jan, [facility] [address] [place] [address] Jan, [facility] [address], [place] [address] Jan, Unintentional weight loss R63.4 ; Stage 2 chronic kidney disease N18.2 ; Exposure to hepatitis C Z20.5 ; Diabetic neuropathy E11.40 ; Obstructive sleep apnea syndrome G47.33 ; Essential hypertension I10 and Type 2 diabetes mellitus with hyperglycemia E11.65 [facility] [address], [place] [address] Jan, [facility] [address] [place] [address] Jan, Type 2 diabetes mellitus with hyperglycemia E11.65 ; Diabetic neuropathy E11.40 and Essential hypertension I10 [facility] [address] [place] [address] Dec, Diabetes E11.9 [facility] [address] [id number] [place] [address] Dec, [facility] [id number] [place] [address] Dec, [place] [id number] [place] [address] Dec, [facility] [address] [place] [address] Dec, Dental examination Z01.20 [facility] [address] [place] [address] Dec, [facility] [address] [place] [address] Dec, Diabetes E11.9 [facility] [address] [address] Dec, Stage 2 chronic kidney disease N18.2 ; Exposure to hepatitis C Z20.5 ; Obstructive sleep apnea syndrome G47.33 and Type 2 diabetes mellitus with hyperglycemia E11.65 [facility] [address] [address] Dec, [facility] [place] [address] [id number] [place] [address] Dec Diabetes E11.9 and Essential hypertension I10 [facility] [address] [place] [address], [place] [address] Nov, Diabetes E11.9 [facility] [address] [facility] [id number] [place] [address] Nov, Right foot pain M79.671 [facility] [place] [address] [facility] [id number] [place] [address] Nov, Right foot pain M79.671 [facility] [place] [address] [id number] [place] [address] Nov Diabetes E11.9 [facility] [place] [address] [id number] [place] [address] Nov Diabetes E11.9 [facility] [address] [facility] [id number] [place] [address] Nov, Dental examination Z01.20 [facility] [place] [address] [id number] [place] [address] Nov Diabetes E11.9 ; Cocaine abuse F14.10 and Shingles (herpes zoster) polyneuropathy B02.23 [facility] [place] [address] [id number] [place] [address] Nov [facility] [place] [address] [facility] [id number] [place] [address] October, [facility] [place] [address] [id number] [place] [address] October [facility] [place] [address] [id number] [place] [address] October Unintentional weight loss R63.4 [facility] [place] [address] [id number] [place] [address] October Abscess L02.91 [facility] [place] [address] [id number] [place] [address] October Diabetes E11.9 ; Unintentional weight loss R63.4 ; History of hematuria Z87.448 and Cocaine abuse F14.10 [facility] [place] [address] [id number] [place] [address] October Diabetes E11.9 [facility] [place] [address] [id number] [place] [address] October Essential hypertension I10 and Abscess L02.91 [facility] [place] [address] [id number] [place] [address] Jun [facility] [place] [address] [id number] [place] [address] May Breast cancer screening Z12.39 ; Diabetes E11.9 and Anxiety F41.9 [facility] [place] [address] [facility] [id number] [place] [address] May, Diabetes E11.9 [facility] [place] [address] [id number] [place] [address] 15 May Diabetes E11.9 and Anemia D64.9 [facility] [place] [address] [id number] [place] [address] 14 May Anxiety F41.9 [facility] [place] [address] [id number] [place] [address] 08 May [facility] [place] [address] [id number] [place] [address] May Dysuria R30.0 [facility] [place] [address] [id number] [place] [address] 06 May [facility] [place] [address] [id number] [place] [address] 05 May Dysuria R30.0 and Vaginal itching L29.8 [facility] [address] 78705[address]00565100[place] [address] Apr, [facility] [place] [address] [id number] [place] [address] 14 Apr Diabetes E11.9 ; Dysuria R30.0 ; Diabetic neuropathy E11.40 ; Anemia D64.9 and Vaginal discharge N89.8 [facility] [address] [facility] [id number] [address] Jun, [place] [address] [place] [id number] [place] [id number] Jun, Anemia D64.9 ; Anxiety F41.9 ; Diabetes E11.9 and Diabetic neuropathy E11.40 [address] [id number] May, [facility] [address] 2890765[place] [address] Apr, [place] [id number] [place] [id number] Apr, Anemia D64.9 ; Anxiety F41.9 ; Diabetes E11.9 and Diabetic neuropathy E11.40 [place] [address] [place] [id number] Mar, Acute costochondritis M94.0 [place] [address] [place] [id number] Mar, Bilateral low back pain without sciatica M54.5 and Bereavement Z63.4 [place] [address] [place] [id number] Mar, Obstructive chronic bronchitis with acute exacerbation J44.1 ; Herpes zoster without complication B02.9 and [place] N91.[address] [address] Mar, [place] [address] [id number] Mar, [place] [address] [id number] Feb, History of recent traumatic injury of head V15.52 ; Diabetes type 2, uncontrolled 250.02 and Visual disturbance 368.9 [address] [address] Feb, History of recent traumatic injury of head V15.52 ; Visual disturbance 368.9 and Diabetes type 2, uncontrolled 250.02 IMMUNIZATIONS No Known Immunizations SOCIAL HISTORY Never Assessed REASON FOR VISIT chinese medicine practitioner update PLAN OF CARE VITAL SIGNS MEDICATIONS Unknown [...] infection 2005 Hospitalization History in rehab at [facility] 2016 Hospitalization History Stroke 05/2017 Hospitalization History surgeries Hospitalization History Elevated B/S 07/2017 Hospitalization History [facility] - blood clot LRE 10/2017 Hospitalization History [facility] - R ankle clot 11/2017
--- OUTSIDE RECORDS SUMMARY | 2018-05-13 11:07 | XMS REPORT ---
Author Author CHRIS BECKWITH [facility] [place] Address [address] [place] [address] Care Team Providers Care Specialty Cook Name Role Phone CHRIS BECKWITH Unavailable PROBLEMS Type Condition ICD9-CM Code KXF88-EC Code Onset Dates Condition Status SNOMED Code Problem Diabetic neuropathy E11.40 Active 276108437 Problem Dysuria R30.0 Active 98018202 Problem Diabetes E11.9 Active 11461982 Problem Anxiety F41.9 Active 41006496 Problem Anemia D64.9 Active 656636518 Problem Stage 2 chronic kidney disease N18.2 Active 989743157 Problem Obstructive sleep apnea syndrome G47.33 Active 38132404 Problem Cocaine abuse F14.10 Active 89774827 Problem Essential hypertension I10 Active 38300749 Problem Type 2 diabetes mellitus with hyperglycemia E11.65 Active 112539499024861 Problem Shingles (herpes zoster) polyneuropathy B02.23 Active 197257412 ALLERGIES Unknown Allergies SOCIAL HISTORY No smoking Hx information available PLAN OF CARE VITAL SIGNS MEDICATIONS Unknown Medications RESULTS Name Result Date Reference Range TSH 2016-05-23 TSH 1.380 0.450-4.500 CBC 2016-05-23 WBC 7.0 3.4-10.8 RBC 4.05 3.77-5.28 Hemoglobin 12.4 11.1-15.9 Hematocrit 36.8 34.0-46.6 MCV 91 79-97 MCH 30.6 26.6-33.0 MCHC 33.7 31.5-35.7 RDW 12.9 12.3-15.4 Platelets 349 150-379 Neutrophils 74 Lymphs 19 Monocytes 6 Eos 1 Basos 0 Neutrophils (Absolute) 5.2 1.4-7.0 Lymphs (Absolute) 1.3 0.7-3.1 Monocytes(Absolute) 0.4 0.1-0.9 Eos (Absolute) 0.1 0.0-0.4 Baso (Absolute) 0.0 0.0-0.2 Immature Granulocytes 0 Immature Grans (Abs) 0.0 0.0-0.1 LIPID PANEL 2016-05-23 Cholesterol, Total 325 100-199 Triglycerides 63 0-149 HDL Cholesterol 141 >39 VLDL Cholesterol Juan 13 5-40 LDL Cholesterol Calc 171 0-99 CMP 2016-05-23 Glucose, Serum 367 65-99 BUN 17 6-24 Creatinine, Serum 1.18 0.57-1.00 eGFR If NonAfricn Am 54 >59 eGFR If Africn Am 62 >59 BUN/Creatinine Ratio 14 9-23 Sodium, Serum 136 134-144 Potassium, Serum 4.6 3.5-5.2 Chloride, Serum 95 96-106 Carbon Dioxide, Total 20 18-29 Calcium, Serum 9.3 8.7-10.2 Protein, Total, Serum 7.2 6.0-8.5 Albumin, Serum 4.3 3.5-5.5 Globulin, Total 2.9 1.5-4.5 A/G Ratio 1.5 1.1-2.5 Bilirubin, Total 0.4 0.0-1.2 Alkaline Phosphatase, S 107 39-117 AST (SGOT) 17 0-40 ALT (SGPT) 21 0-32 PROCEDURES Procedure Date Ordered Related Diagnosis Body Site ASSAY THYROID STIM HORMONE May 23, 2016 COMPLETE CBC W/AUTO DIFF WBC May 23, 2016 VENIPUNCT, ROUTINE* May 23, 2016 LIPID PANEL May 23, 2016 IMMUNIZATIONS No Known Immunizations
--- OUTSIDE RECORDS SUMMARY | 2018-05-13 11:08 | XMS REPORT ---
Author Author CHRIS BECKWITH [facility] Address [address] [place] [address] Care Team Providers Care Svp Operations Name Role Phone CHRIS BECKWITH Unavailable PROBLEMS Type Condition ICD9-CM Code IJO37-KR Code Onset Dates Condition Status SNOMED Code Problem Type 2 diabetes mellitus with hyperglycemia E11.65 Active [id number] Problem Sleep apnea in adult G47.30 Active 70970886 Problem Hyperlipidemia, unspecified E78.5 Active 85712162 Problem Abnormal mammogram of right breast R92.8 Active 664236167 Problem Breast asymmetry N64.89 Active 271487967 Problem Moderately severe depression F32.2 Active 579339098 Problem Hypoglycemia associated with type 2 diabetes mellitus E11.649 Active 991210506 Problem Hypoglycemia E16.2 Active 129668392 Problem Cerebrovascular accident (CVA), unspecified mechanism I63.9 Active 941645403 Problem Essential hypertension I10 Active 82215146 Problem Cocaine abuse F14.10 Active 36840703 Problem Diabetic neuropathy E11.40 Active 925883054 Problem Stage 2 chronic kidney disease N18.2 Active 705738142 Problem Anxiety F41.9 Active 07593935 Problem Obstructive sleep apnea syndrome G47.33 Active 45568948 ALLERGIES No Information ENCOUNTERS Encounter Location Date Diagnosis [facility] [address] [id number] [place] [address] October [facility] [address] [id number] [place] [address] October [facility] [id number] [address] October Type 2 diabetes mellitus with hyperglycemia E11.65 and Surgical procedure on lower extremity within past 6 months Z98.890 [facility] [id number] [address] October [facility] [place] [address] [id number] [place] [address] October [facility] [address] [facility] [id number] [place] [address] October, [facility] [place] [address] [id number] [place] [address] October Sleep apnea in adult G47.30 [facility] [place] [address] [id number] [place] [address] October Type 2 diabetes mellitus with hyperglycemia E11.65 [facility] [place] [address] [id number] [place] [address] Sep [facility] [place] [address] [id number] [place] [address] Sep Breast asymmetry N64.89 [facility] [place] [address] [id number] [place] [address] Sep [facility] [place] [address] [id number] [place] [address] Sep Type 2 diabetes mellitus with hyperglycemia E11.65 ; Cocaine abuse F14.10 and Open wound of right great toe, subsequent encounter S91.101D [facility] [place] [address] [id number] [place] [address] Sep [facility] [place] [address] [id number] [place] [address] Aug [facility] [place] [address] [id number] [place] [address] Aug [facility] [place] [address] [id number] [place] [address] Aug Type 2 diabetes mellitus with hyperglycemia E11.65 [facility] [place] [address] [id number] [place] [address] Aug [facility] [address] [facility] [id number] [place] [address] Aug, [facility] [place] [address] [id number] [place] [address] Jul [facility] [place] [address] [id number] [place] [address] Jul Diabetic neuropathy E11.40 ; Essential hypertension I10 and Type 2 diabetes mellitus with hyperglycemia E11.65 [facility] [place] [address] [id number] [place] [address] Jul [facility] [place] [address] [id number] [place] [address] Jul [facility] [place] [address] [id number] [place] [address] Jul [facility] [place] [address] [id number] [place] [address] Jul [facility] [place] [address] [id number] [place] [address] Jul [facility] [place] [address] [id number] [place] [address] Jul Type 2 diabetes mellitus with hyperglycemia E11.65 ; Open wound of right great toe, subsequent encounter S91.101D ; Essential hypertension I10 and Diabetic neuropathy E11.[address] [facility] [address] [id number] [place] [id number] Jul, [facility] [place] [address] [id number] [place] [address] Jun [facility] [place] [address] [id number] [place] [address] Jun Type 2 diabetes mellitus with hyperglycemia E11.65 [facility] [place] [address] [id number] [place] [address] Jun [facility] [place] [address] [id number] [place] [address] Jun [facility] [place] [address] [id number] [place] [address] Jun Abnormal mammogram of right breast R92.8 and Breast asymmetry N64.89 [facility] [place] [address] [id number] [place] [address] Jun [facility] [place] [address] [id number] [place] [address] Jun [facility] [place] [address] [id number] [place] [address] May Hypoglycemia E16.2 [facility] [place] [address] [id number] [place] [address] May Abnormal neurological exam R29.90 [facility] [place] [address] [id number] [place] [address] May [facility] [place] [address] [id number] [place] [address] May Type 2 diabetes mellitus with hyperglycemia E11.65 [facility] [place] [address] [id number] [place] [address] May Breast cancer screening Z12.31 and Hematuria, unspecified type R31.9 [facility] [place] [address] [id number] [place] [address] May [facility] [place] [address] [id number] [place] [address] May Type 2 diabetes mellitus with hyperglycemia E11.65 ; Essential hypertension I10 ; Moderately severe depression F32.2 and Confusion R41.0 [place] [address] [id number] [place] [address] May, [facility] [place] [address] [id number] [place] [address] May Cerebrovascular accident (CVA), unspecified mechanism I63.9 ; Essential hypertension I10 ; Hyperlipidemia, unspecified E78.5 and Type 2 diabetes mellitus with hyperglycemia E11.65 [place] [address], [place] [address] May, [place] [address] [id number], [place] [address] May, [facility] [place] [address] [id number] [place] [address] May [facility] [place] [address] [id number] [place] [address] May Diabetic neuropathy E11.40 and Diabetes E11.9 [facility] [place] [address] [id number] [place] [address] Apr [facility] [place] [address] [id number] [place] [address] Apr Subacute maxillary sinusitis J01.00 ; Hypoglycemia associated with type 2 diabetes mellitus E11.649 and Intractable episodic headache, unspecified headache type R51 [facility] [place] [address] [id number] [place] [address] Apr Diabetic neuropathy E11.40 and Anxiety F41.9 [facility] [place] [address] [id number] [place] [address] Apr [facility] [place] [address] [id number] [place] [address] Apr Type 2 diabetes mellitus with hyperglycemia E11.65 ; Subacute maxillary sinusitis J01.00 ; Diabetic neuropathy E11.40 and Sleep apnea in adult G47.30 [facility] [address] [facility] [id number] [place] [address] Apr, [facility] [place] [address] [id number] [place] [address] Apr [facility] [place] [address] [id number] [place] [address] Apr [facility] [place] [address] [id number] [place] [address] Apr Subacute maxillary sinusitis J01.00 [facility] [address] [facility] [id number] [place] [address] Apr, Right foot drop M21.371 [facility] [place] [address] [id number] [place] [address] Apr [facility] [place] [address] [id number] [place] [address] Mar [facility] [place] [address] [id number] [place] [address] Mar Essential hypertension I10 ; Type 2 diabetes mellitus with hyperglycemia E11.65 ; Encounter for immunization Z23 ; Cocaine abuse F14.10 and Hyperlipidemia, unspecified E78.5 [facility] [place] [address] [id number] [place] [address] Mar [facility] [address] [address] Mar, [facility] [place] [address] [id number] [place] [address] Feb [facility] [place] [address] [id number] [place] [address] Feb Type 2 diabetes mellitus with hyperglycemia E11.65 and Acute right ankle pain M25.571 [facility] [place] [address] [id number] [place] [address] Feb Weight loss R63.4 and Anxiety F41.9 [place] [id number] [place] [address] Jan, [facility] [id number] [place] [address] Jan, [facility] [id number] [place] [address] Jan, [facility] [id number] [place] [address] Jan, Diabetes E11.9 [facility] [place] [email or web address] [address] [id number] [place] [address] Jan Sprain of right ankle, unspecified ligament, initial encounter S93.401A [facility] [place] [address] [id number] [place] [address] Jan Essential hypertension I10 ; Anxiety F41.9 and Type 2 diabetes mellitus with hyperglycemia E11.65 [facility] [address] [place] [address] Jan, Diabetes E11.9 [facility] [id number] [place] [address] Jan, [facility] [address], [place] [address] Jan, [facility] [id number] [place] [address] Jan [facility] [address], [place] [address] Jan, [facility] [address], [place] [address] Jan, [facility] [address], [place] [address] Jan, [facility] [address] [place] [address] Jan, [facility] [address]005[address], [place] [address] Jan, Unintentional weight loss R63.4 ; Stage 2 chronic kidney disease N18.2 ; Exposure to hepatitis C Z20.5 ; Diabetic neuropathy E11.40 ; Obstructive sleep apnea syndrome G47.33 ; Essential hypertension I10 and Type 2 diabetes mellitus with hyperglycemia E11.65 [facility] [address], [place] [address] Jan, [facility] [address], [place] [address] Jan, Type 2 diabetes mellitus with hyperglycemia E11.65 ; Diabetic neuropathy E11.40 and Essential hypertension I10 [facility] [address]005[address], [place] [address] Dec, Diabetes E11.9 [facility] [address], [place] [address] Dec, [facility] [address], [place] [address] Dec, [facility] [address], [place] [address] Dec, [facility] [address], [place] [address] Dec, Dental examination Z01.20 [facility] [address], [place] [address] Dec, [facility] [address], [place] [address] Dec, Diabetes E11.9 [facility] [address] [place] [address] Dec, Stage 2 chronic kidney disease N18.2 ; Exposure to hepatitis C Z20.5 ; Obstructive sleep apnea syndrome G47.33 and Type 2 diabetes mellitus with hyperglycemia E11.65 [facility] [address], [place] [address] Dec, [facility] [address] [id number] [place] [address] Dec Diabetes E11.9 and Essential hypertension I10 [facility] [address], [place] [address] Nov, Diabetes E11.9 [facility] [address], [place] [address] Nov, Right foot pain M79.671 [facility] [id number] [address] Nov, Right foot pain M79.671 [facility] [address] [id number] [place] [address] Nov Diabetes E11.9 [facility] [address] [id number] [place] [address] Nov Diabetes E11.9 [facility] [address] [id number] [id number] 16 Nov, 2016 Dental examination Z01.20 [facility] [address] [id number] [place] [address] 09 Nov Diabetes E11.9 ; Cocaine abuse F14.10 and Shingles (herpes zoster) polyneuropathy B02.23 [facility] [place] [address] [id number] [place] [address] Nov [facility] [address] [facility] [id number] [place] [address] October, [facility] [place] [address] [id number] [place] [address] October [facility] [place] [address] [id number] [place] [address] October Unintentional weight loss R63.4 [facility] [place] [address] [id number] [place] [address] October Abscess L02.91 [facility] [place] [address] [id number] [place] [address] October Diabetes E11.9 ; Unintentional weight loss R63.4 ; History of hematuria Z87.448 and Cocaine abuse F14.10 [facility] [place] [address] [id number] [place] [address] October Diabetes E11.9 [facility] [place] [address] [id number] [place] [address] October Essential hypertension I10 and Abscess L02.91 [facility] [place] [address] [id number] [place] [address] Jun [facility] [place] [address] [id number] [place] [address] May Breast cancer screening Z12.39 ; Diabetes E11.9 and Anxiety F41.9 [facility] [address] [id number] [place] [id number] May, Diabetes E11.9 [facility] [place] [address] [id number] [place] [address] May Diabetes E11.9 and Anemia D64.9 [facility] [place] [address] [id number] [place] [address] May Anxiety F41.9 [facility] [place] [address] [id number] [place] [address] 08 May [facility] [address] [id number] [place] [address] May Dysuria R30.0 [facility] [place] [address] [id number] [place] [address] May [facility] [address] [id number] [place] [address] May Dysuria R30.0 and Vaginal itching L29.8 [place] [address] [id number], [place] [address] Apr, [facility] [address] [id number] [place] [address] Apr Diabetes E11.9 ; Dysuria R30.0 ; Diabetic neuropathy E11.40 ; Anemia D64.9 and Vaginal discharge N89.8 [place] [address], [place] [address] Jun, [address] [place] [id number] Jun, Anemia D64.9 ; Anxiety F41.9 ; Diabetes E11.9 and Diabetic neuropathy E11.[address] [place] [id number] May, [place] [address]005[address], [place] [address] Apr, [address] [place] [id number] Apr, Anemia D64.9 ; Anxiety F41.9 ; Diabetes E11.9 and Diabetic neuropathy E11.40 [place] [id number] [place] [id number] Mar, Acute costochondritis M94.[address] [place] [id number] Mar, Bilateral low back pain without sciatica M54.5 and Bereavement Z63.[address]65[address] [id number] Mar, Obstructive chronic bronchitis with acute exacerbation J44.1 ; Herpes zoster without complication B02.9 and [place] N91.[address]65100[place] [id number] Mar, [address]00565100[place] [id number] Mar, [address]00565100[place] [id number] Feb, History of recent traumatic injury of head V15.52 ; Diabetes type 2, uncontrolled 250.02 and Visual disturbance 368.[address]65100[place] [id number] Feb, History of recent traumatic injury of head V15.52 ; Visual disturbance 368.9 and Diabetes type 2, uncontrolled 250.02 IMMUNIZATIONS No Known Immunizations SOCIAL HISTORY Never Assessed REASON FOR VISIT triage - CBowmanRN PLAN OF CARE VITAL SIGNS MEDICATIONS Unknown [...] infection 2004 Hospitalization History in rehab at [place] 2017 Hospitalization History Stroke 05/2017 Hospitalization History surgeries Hospitalization History Elevated B/S 07/2017 Hospitalization History [facility] - blood clot LRE 10/2017
--- OUTSIDE RECORDS SUMMARY | 2018-05-13 11:08 | XMS REPORT ---
Author [facility] [address] [place] [address] Care Team Providers Care Underwriting Specialist Name Role Phone SAFIA LANE Unavailable PROBLEMS Type Condition ICD9-CM Code TNM45-ZK Code Onset Dates Condition Status SNOMED Code Problem Type 2 diabetes mellitus with hyperglycemia E11.65 Active 163584820975066 Problem Sleep apnea in adult G47.30 Active 38064591 Problem Hyperlipidemia, unspecified E78.5 Active 72211283 Problem Abnormal mammogram of right breast R92.8 Active 978440862 Problem Breast asymmetry N64.89 Active 460813721 Problem Moderately severe depression F32.2 Active 738751546 Problem Hypoglycemia associated with type 2 diabetes mellitus E11.649 Active 117825072 Problem Hypoglycemia E16.2 Active 521498920 Problem Cerebrovascular accident (CVA), unspecified mechanism I63.9 Active 005683450 Problem Essential hypertension I10 Active 02180293 Problem Cocaine abuse F14.10 Active 20551028 Problem Diabetic neuropathy E11.40 Active 533622870 Problem Stage 2 chronic kidney disease N18.2 Active 192409220 Problem Anxiety F41.9 Active 16865113 Problem Obstructive sleep apnea syndrome G47.33 Active 64456721 ALLERGIES No Information ENCOUNTERS Encounter Location Date Diagnosis [facility] [address] [id number] [place] [address] Nov [facility] [address] [id number] [place] [address] Nov [facility]News[facility] MAN [address] [id number] [place] [address] October [facility] [address] [id number] [place] [address] October [facility]ONS [address] [id number] [place] [address] October Type 2 diabetes mellitus with hyperglycemia E11.65 and Surgical procedure on lower extremity within past 6 months Z98.890 [facility] [place] [address] [id number] [place] [address] October [facility] [place] [address] [id number] [place] [address] October [facility] [address] [facility] [id number] [place] [address] October, [facility] [place] [address] [id number] [place] [address] October Sleep apnea in adult G47.30 [facility] [place] [address] [id number] [place] [address] October Type 2 diabetes mellitus with hyperglycemia E11.65 [facility] [place] [address] [id number] [place] [address] Sep [facility] [place] [address] [id number] [place] [address] Sep Breast asymmetry N64.89 [facility] [place] [address] [id number] [place] [address] Sep [facility] [place] [address] [id number] [place] [address] Sep Type 2 diabetes mellitus with hyperglycemia E11.65 ; Cocaine abuse F14.10 and Open wound of right great toe, subsequent encounter S91.101D [facility] [place] [address] [id number] [place] [address] Sep [facility] [place] [address] [id number] [place] [address] Aug [facility] [place] [address] [id number] [place] [address] Aug [facility] [place] [address] [id number] [place] [address] Aug Type 2 diabetes mellitus with hyperglycemia E11.65 [facility] [place] [address] [id number] [place] [address] Aug [facility] [address] [facility] [id number] [place] [address] Aug, [facility] [place] [address] [id number] [place] [address] Jul [facility] [place] [address] [id number] [place] [address] Jul Diabetic neuropathy E11.40 ; Essential hypertension I10 and Type 2 diabetes mellitus with hyperglycemia E11.65 [facility] [place] [address] [id number] [place] [address] Jul [facility] [place] [address] [id number] [place] [address] Jul [facility] [place] [address] [id number] [place] [address] Jul [facility] [place] [address] [id number] [place] [address] Jul [facility] [place] [address] [id number] [place] [address] Jul [facility] [place] [address] [id number] [place] [address] Jul Type 2 diabetes mellitus with hyperglycemia E11.65 ; Open wound of right great toe, subsequent encounter S91.101D ; Essential hypertension I10 and Diabetic neuropathy E11.[address] [facility] [address] [id number] [place] [address] Jul, [facility] [place] [address] [id number] [place] [address] Jun [facility] [place] [address] [id number] [place] [address] Jun Type 2 diabetes mellitus with hyperglycemia E11.65 [facility] [place] [address] [id number] [place] [address] Jun [facility] [place] [address] [id number] [place] [address] Jun [facility] [place] [address] [id number] [place] [address] Jun Abnormal mammogram of right breast R92.8 and Breast asymmetry N64.89 [facility] [place] [address] [id number] [place] [address] Jun [facility] [place] [address] [id number] [place] [address] Jun [facility] [place] [address] [id number] [place] [address] May Hypoglycemia E16.2 [facility] [place] [address] [id number] [place] [address] May Abnormal neurological exam R29.90 [facility] [place] [address] [id number] [place] [address] May [facility] [place] [address] [id number] [place] [address] May Type 2 diabetes mellitus with hyperglycemia E11.65 [facility] [place] [address] [id number] [place] [address] May Breast cancer screening Z12.31 and Hematuria, unspecified type R31.9 [facility] [place] [address] [id number] [place] [address] May [facility]ALSEGavin [place] [address] [id number] [place] [address] May Type 2 diabetes mellitus with hyperglycemia E11.65 ; Essential hypertension I10 ; Moderately severe depression F32.2 and Confusion R41.0 [place] [address], [place] [address] May, [facility]ITALThromboGenicsH[facility] [address] [id number] [place] [address] May Cerebrovascular accident (CVA), unspecified mechanism I63.9 ; Essential hypertension I10 ; Hyperlipidemia, unspecified E78.5 and Type 2 diabetes mellitus with hyperglycemia E11.65 [place] [address] [place] [address] May, [place] [address] [place] [id number] [place] [address] May, [facility] [place] [address] [id number] [place] [address] May [facility] [place] [address] [id number] [place] [address] May Diabetic neuropathy E11.40 and Diabetes E11.9 [facility] [place] [address] [id number] [place] [address] Apr [facility] [place] [address] [id number] [place] [address] Apr Subacute maxillary sinusitis J01.00 ; Hypoglycemia associated with type 2 diabetes mellitus E11.649 and Intractable episodic headache, unspecified headache type R51 [facility] [place] [address] [id number] [place] [address] Apr Diabetic neuropathy E11.40 and Anxiety F41.9 [facility] [place] [address] [id number] [place] [address] Apr [facility] [place] [address] [id number] [place] [address] Apr Type 2 diabetes mellitus with hyperglycemia E11.65 ; Subacute maxillary sinusitis J01.00 ; Diabetic neuropathy E11.40 and Sleep apnea in adult G47.30 [place] [address] [facility] [id number] [place] [address] Apr, [facility] [place] [address] [id number] [place] [address] Apr [facility] [place] [address] [id number] [place] [address] Apr [facility] [place] [address] [id number] [place] [address] Apr Subacute maxillary sinusitis J01.00 [facility] [address] [facility] [id number] [place] [address] Apr, Right foot drop M21.371 [facility] [place] [address] [id number] [place] [address] Apr [facility] [place] [address] [id number] [place] [address] Mar [facility]OSPITALGavin [facility] [address] [id number] [place] [address] Mar Essential hypertension I10 ; Type 2 diabetes mellitus with hyperglycemia E11.65 ; Encounter for immunization Z23 ; Cocaine abuse F14.10 and Hyperlipidemia, unspecified E78.5 [facility] [place] [address] [id number] [place] [address] Mar [place] [address], [place] [address] Mar, [facility] [address] [id number] [place] [address] Feb [facility] [address] [id number] [place] [address] Feb Type 2 diabetes mellitus with hyperglycemia E11.65 and Acute right ankle pain M25.571 [facility] [place] [address] [id number] [place] [address] Feb Weight loss R63.4 and Anxiety F41.9 [place] [address] [place] [address] Jan, [place] [address] [place] [id number] [place] [address] Jan, [place] [address] [place] [address] Jan, [place] [address] [place] [id number] [place] [address] Jan, Diabetes E11.9 [facility] [place] [address] [id number] [place] [address] Jan Sprain of right ankle, unspecified ligament, initial encounter S93.401A [facility] AMN [address] [id number] [place] [address] Jan Essential hypertension I10 ; Anxiety F41.9 and Type 2 diabetes mellitus with hyperglycemia E11.65 [place] [address] [facility] [id number], [place] [address] Jan, Diabetes E11.9 [facility] [address] [facility] [id number] [address] Jan, [facility] [address], [place] [address] Jan, [address] [id number] [place] [address] Jan [facility] [address] [facility] [id number], [place] [address] Jan, [facility] [address], [place] [address] Jan, [facility] [address], [place] [address] Jan, [facility] [address], [place] [address] Jan, [facility] [address], [place] [address] Jan, Unintentional weight loss R63.4 ; Stage 2 chronic kidney disease N18.2 ; Exposure to hepatitis C Z20.5 ; Diabetic neuropathy E11.40 ; Obstructive sleep apnea syndrome G47.33 ; Essential hypertension I10 and Type 2 diabetes mellitus with hyperglycemia E11.65 [facility] [address]100[place], [place] [address] Jan, [facility] [address] [place] [id number], [place] [address] Jan, Type 2 diabetes mellitus with hyperglycemia E11.65 ; Diabetic neuropathy E11.40 and Essential hypertension I10 [facility] [address], [place] [address] Dec, Diabetes E11.9 [facility] [address] [place] [id number], [place] [address] Dec, [facility] [address], [place] [address] Dec, [facility] [address], [place] [address] Dec, [facility] [address], [place] [address] Dec, Dental examination Z01.20 [facility] [address] [place] [id number] [place] [address] Dec, [facility] [address] [place] [address] Dec, Diabetes E11.9 [place] [address] [place] [id number] [place] [address] Dec, Stage 2 chronic kidney disease N18.2 ; Exposure to hepatitis C Z20.5 ; Obstructive sleep apnea syndrome G47.33 and Type 2 diabetes mellitus with hyperglycemia E11.65 [facility] [address], [place] [address] Dec, [facility] [place] [address] [id number] [place] [address] Dec Diabetes E11.9 and Essential hypertension I10 [facility] [address] [place] [address] Nov, Diabetes E11.9 [facility] [address], [place] [address] Nov, Right foot pain M79.671 [facility] [id number] [address] Nov, Right foot pain M79.671 [facility] MAN [address] [id number] [place] [address] Nov Diabetes E11.9 [facility] MAN [address] [id number] [place] [address] Nov Diabetes E11.9 [facility] [id number] [address] 16 Nov, 2016 Dental examination Z01.20 [facility] [place] [address] [id number] [place] [address] 09 Nov Diabetes E11.9 ; Cocaine abuse F14.10 and Shingles (herpes zoster) polyneuropathy B02.23 [facility] [place] [address] [id number] [place] [address] Nov [facility] [address] [facility] [id number] [place] [address] October, [facility] [place] [address] [id number] [place] [address] October [facility] [place] [address] [id number] [place] [address] October Unintentional weight loss R63.4 [facility] [place] [address] [id number] [place] [address] October Abscess L02.91 [facility] [place] [address] [id number] [place] [address] October Diabetes E11.9 ; Unintentional weight loss R63.4 ; History of hematuria Z87.448 and Cocaine abuse F14.10 [facility] [place] [address] [id number] [place] [address] October Diabetes E11.9 [facility] [place] [address] [id number] [place] [address] October Essential hypertension I10 and Abscess L02.91 [facility] [place] [address] [id number] [place] [address] Jun [facility] [place] [address] [id number] [place] [address] May Breast cancer screening Z12.39 ; Diabetes E11.9 and Anxiety F41.9 [facility] [place] [address] [id number] [place] [address] May, Diabetes E11.9 [facility] [place] [address] [id number] [place] [address] May Diabetes E11.9 and Anemia D64.9 [facility] [place] [address] [id number] [place] [address] 14 May Anxiety F41.9 [facility] [place] [address] [id number] [place] [address] 08 May [facility] [place] [address] [id number] [place] [address] 06 May Dysuria R30.0 [facility] [place] [address] [id number] [place] [address] 06 May [facility] [place] [address] [id number] [place] [address] 05 May Dysuria R30.0 and Vaginal itching L29.8 [facility] [address], [place] [address] Apr, [facility] [place] [address] [id number] [place] [address] 14 Apr Diabetes E11.9 ; Dysuria R30.0 ; Diabetic neuropathy E11.40 ; Anemia D64.9 and Vaginal discharge N89.8 [facility] [address] [place] [id number] [place] [address] Jun, [address]00565100[place] [address] Jun, Anemia D64.9 ; Anxiety F41.9 ; Diabetes E11.9 and Diabetic neuropathy E11.40 [address]00565[address] [address] May, [facility] [address] [place] [id number] [place] [address] Apr, [place] [id number] [place] [id number] Apr, Anemia D64.9 ; Anxiety F41.9 ; Diabetes E11.9 and Diabetic neuropathy E11.40 [place] [id number] [place] [id number] Mar, Acute costochondritis M94.0 [address]65[address] [address] Mar, Bilateral low back pain without sciatica M54.5 and Bereavement Z63.4 [address]65[place] [address] 14 Mar, 2015 Obstructive chronic bronchitis with acute exacerbation J44.1 ; Herpes zoster without complication B02.9 and [place] N91.2 [address]65[address] [address] Mar, [place] [address] [address] Mar, [address] [address] Feb, History of recent traumatic injury of head V15.52 ; Diabetes type 2, uncontrolled 250.02 and Visual disturbance 368.9 [place] [id number] [address] Feb, History of recent traumatic injury of head V15.52 ; Visual disturbance 368.9 and Diabetes type 2, uncontrolled 250.02 IMMUNIZATIONS No Known Immunizations SOCIAL HISTORY Never Assessed REASON FOR VISIT Other PLAN OF CARE VITAL SIGNS MEDICATIONS Unknown [...] infection 2004 Hospitalization History in rehab at [place] 2016 Hospitalization History Stroke 05/2017 Hospitalization History surgeries Hospitalization History Elevated B/S 07/2017 Hospitalization History [facility] - blood clot LRE 10/2017
--- OUTSIDE RECORDS SUMMARY | 2018-05-13 11:08 | XMS REPORT ---
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 Name Role Phone CHRIS BECKWITH Unavailable PROBLEMS Type Condition ICD9-CM Code BWG09-QV Code Onset Dates Condition Status SNOMED Code Problem Type 2 diabetes mellitus with hyperglycemia E11.65 Active 060961904736780 Problem Sleep apnea in adult G47.30 Active 27081803 Problem Hyperlipidemia, unspecified E78.5 Active 88777715 Problem Abnormal mammogram of right breast R92.8 Active 362187819 Problem Breast asymmetry N64.89 Active 765714608 Problem Moderately severe depression F32.2 Active 482921207 Problem Hypoglycemia associated with type 2 diabetes mellitus E11.649 Active 775641798 Problem Hypoglycemia E16.2 Active 175889535 Problem Cerebrovascular accident (CVA), unspecified mechanism I63.9 Active 039473449 Problem Essential hypertension I10 Active 27290233 Problem Cocaine abuse F14.10 Active 57771077 Problem Diabetic neuropathy E11.40 Active 526137363 Problem Stage 2 chronic kidney disease N18.2 Active 150515884 Problem Anxiety F41.9 Active 26855706 Problem Obstructive sleep apnea syndrome G47.33 Active 56902610 ALLERGIES Substance Reaction Event Type Date Status Phenergan nausea Drug Allergy Nov, Active Penicillin V Potassium nausea Drug Allergy Nov, Active ENCOUNTERS Encounter Location Date Diagnosis [facility] [place] [address] [id number] [place] [address] Aug [facility] [address] [id number] [place] [address] Aug [facility] [place] [address] [id number] [place] [address] Aug Type 2 diabetes mellitus with hyperglycemia E11.65 [facility] [place] [address] [id number] [place] [address] Aug [facility] [place] [address] [facility] [id number] [place] [address] Aug, [facility] [place] [address] [id number] [place] [address] Jul [facility] [place] [address] [id number] [place] [address] Jul Diabetic neuropathy E11.40 ; Essential hypertension I10 and Type 2 diabetes mellitus with hyperglycemia E11.65 [facility] [place] [address] [id number] [place] [address] Jul [facility] [place] [address] [id number] [place] [address] Jul [facility] [place] [address] [id number] [place] [address] Jul [facility] [place] [address] [id number] [place] [address] Jul [facility] [place] [address] [id number] [place] [address] Jul [facility] [place] [address] [id number] [place] [address] Jul Type 2 diabetes mellitus with hyperglycemia E11.65 ; Open wound of right great toe, subsequent encounter S91.101D ; Essential hypertension I10 and Diabetic neuropathy E11.40 [facility] [address] [id number] [place] [id number] Jul, [facility] [place] [address] [id number] [place] [address] Jun [facility] [place] [address] [id number] [place] [address] Jun Type 2 diabetes mellitus with hyperglycemia E11.65 [facility] [place] [address] [id number] [place] [address] Jun [facility] [place] [address] [id number] [place] [address] Jun [facility] [place] [address] [id number] [place] [address] Jun Abnormal mammogram of right breast R92.8 and Breast asymmetry N64.89 [facility] [place] [address] [id number] [place] [address] Jun [facility] [place] [address] [id number] [place] [address] Jun [facility] [place] [address] [id number] [place] [address] May Hypoglycemia E16.2 [facility] [place] [address] [id number] [place] [address] May Abnormal neurological exam R29.90 [facility] [place] [address] [id number] [place] [address] May [facility] [place] [address] [id number] [place] [address] May Type 2 diabetes mellitus with hyperglycemia E11.65 [facility] [place] [address] [id number] [place] [address] May Breast cancer screening Z12.31 and Hematuria, unspecified type R31.9 [facility] [place] [address] [id number] [place] [address] May [facility] [place] [address] [id number] [place] [address] May Type 2 diabetes mellitus with hyperglycemia E11.65 ; Essential hypertension I10 ; Moderately severe depression F32.2 and Confusion R41.0 [place] [address], [place] [address] May, [facility] [place] [address] [id number] [place] [address] May Cerebrovascular accident (CVA), unspecified mechanism I63.9 ; Essential hypertension I10 ; Hyperlipidemia, unspecified E78.5 and Type 2 diabetes mellitus with hyperglycemia E11.65 [place] [address], [place] [address] 07 May, 2017 [place] [address] [facility] [id number] [place] [address] May, [facility] [place] [address] [id number] [place] [address] May [facility] [place] [address] [id number] [place] [address] May Diabetic neuropathy E11.40 and Diabetes E11.9 [facility] [place] [address] [id number] [place] [address] Apr [facility] [place] [address] [id number] [place] [address] Apr Subacute maxillary sinusitis J01.00 ; Hypoglycemia associated with type 2 diabetes mellitus E11.649 and Intractable episodic headache, unspecified headache type R51 [facility] [place] [address] [id number] [place] [address] Apr Diabetic neuropathy E11.40 and Anxiety F41.9 [facility] [place] [address] [id number] [place] [address] Apr [facility] [place] [address] [id number] [place] [address] Apr Type 2 diabetes mellitus with hyperglycemia E11.65 ; Subacute maxillary sinusitis J01.00 ; Diabetic neuropathy E11.40 and Sleep apnea in adult G47.30 [place] [address] [facility] [id number] [place] [address] Apr, [facility] [place] [address] [id number] [place] [address] Apr [facility] [place] [address] [id number] [place] [address] Apr [facility] [place] [address] [id number] [place] [address] Apr Subacute maxillary sinusitis J01.00 [place] [address] [facility] [id number] [place] [address] Apr, Right foot drop M21.371 [facility] [place] [address] [id number] [place] [address] Apr [facility] [place] [address] [id number] [place] [address] Mar [facility] [address] [id number] [place] [address] Mar Essential hypertension I10 ; Type 2 diabetes mellitus with hyperglycemia E11.65 ; Encounter for immunization Z23 ; Cocaine abuse F14.10 and Hyperlipidemia, unspecified E78.[address] [facility] [place] [address] [id number] [place] [address] Mar [facility] [place] [address], [place] [address] Mar, [facility] [address] [id number] [place] [address] Feb [facility] [place] [address] [id number] [place] [address] Feb Type 2 diabetes mellitus with hyperglycemia E11.65 and Acute right ankle pain M25.571 [facility] [place] [address] [id number] [place] [address] Feb Weight loss R63.4 and Anxiety F41.9 [place] [id number] [place] [address] Jan, [facility] [place] [id number] [place] [address] Jan, [facility] [place] [id number] [place] [address] Jan, [place] [id number] [place] [address] Jan, Diabetes E11.9 [facility] [place] [address] [id number] [place] [address] Jan Sprain of right ankle, unspecified ligament, initial encounter S93.401A [facility] [place] [address] [id number] [place] [address] Jan Essential hypertension I10 ; Anxiety F41.9 and Type 2 diabetes mellitus with hyperglycemia E11.65 [facility] [place] [address], [place] [address] Jan, Diabetes E11.9 [facility] [place] [address], [place] [address] Jan, [facility] [place] [address], [place] [address] Jan, [address] [id number] [place] [address] Jan [facility] [place] [address], [place] [address] Jan, [facility] [place] [address], [place] [address] Jan, [facility] [place] [address], [place] [address] Jan, [facility] [place] [address], [place] [address] Jan, [facility] [place] [address], [place] [address] Jan, Unintentional weight loss R63.4 ; Stage 2 chronic kidney disease N18.2 ; Exposure to hepatitis C Z20.5 ; Diabetic neuropathy E11.40 ; Obstructive sleep apnea syndrome G47.33 ; Essential hypertension I10 and Type 2 diabetes mellitus with hyperglycemia E11.65 [facility] [place] [address], [place] [address] Jan, [facility] [place] [address] [id number] [address] Jan, Type 2 diabetes mellitus with hyperglycemia E11.65 ; Diabetic neuropathy E11.40 and Essential hypertension I10 [facility] [place] [address] [id number] [address] Dec, Diabetes E11.9 [facility] [place] [address], [place] [address] Dec, [facility] [place] [address] [id number] [address] Dec, [facility] [place] [address], [place] [address] Dec, [facility] [place] [address], [place] [address] Dec, Dental examination Z01.20 [facility] [place] [address], [place] [address] Dec, [facility] [place] [address] [place] [address] Dec, Diabetes E11.9 [facility] [place] [address], [place] [address] Dec, Stage 2 chronic kidney disease N18.2 ; Exposure to hepatitis C Z20.5 ; Obstructive sleep apnea syndrome G47.33 and Type 2 diabetes mellitus with hyperglycemia E11.65 [facility] [place] [address], [place] [address] Dec, [facility] [place] [address] [id number] [place] [address] Dec Diabetes E11.9 and Essential hypertension I10 [facility] [place] [address], [place] [address] Nov, Diabetes E11.9 [facility] [place] [address] [id number] [address] Nov, Right foot pain M79.671 [facility] [address] [id number] [address] Nov, Right foot pain M79.[address] [facility] [place] [address] [id number] [place] [address] Nov Diabetes E11.[address] [facility] MAN [address] [id number] [place] [address] Nov Diabetes E11.9 [facility] [address] [facility] [id number] [place] [address] 16 Nov, 2016 Dental examination Z01.20 [facility] [place] [address] [id number] [place] [address] 09 Nov Diabetes E11.9 ; Cocaine abuse F14.10 and Shingles (herpes zoster) polyneuropathy B02.23 [facility] [place] [address] [id number] [place] [address] Nov [facility] [place] [address] [facility] [id number] [place] [address] October, [facility] [place] [address] [id number] [place] [address] October [facility] [place] [address] [id number] [place] [address] October Unintentional weight loss R63.4 [facility] [place] [address] [id number] [place] [address] October Abscess L02.91 [facility] [place] [address] [id number] [place] [address] October Diabetes E11.9 ; Unintentional weight loss R63.4 ; History of hematuria Z87.448 and Cocaine abuse F14.10 [facility] [place] [address] [id number] [place] [address] October Diabetes E11.9 [facility] [place] [address] [id number] [place] [address] October Essential hypertension I10 and Abscess L02.91 [facility] [place] [address] [id number] [place] [address] Jun [facility] [place] [address] [id number] [place] [address] May Breast cancer screening Z12.39 ; Diabetes E11.9 and Anxiety F41.9 [facility] [place] [address] [id number] [place] [id number] May, Diabetes E11.9 [facility] [place] [address] [id number] [place] [address] 15 May Diabetes E11.9 and Anemia D64.[address] [facility] [place] [address] [id number] [place] [address] 14 May Anxiety F41.9 [facility] [place] [address] [id number] [place] [address] [address] [facility] [place] [address] [id number] [place] [address] May Dysuria R30.[address] [facility] [place] [address] [id number] [place] [address] [facility] [place] [address] [id number] [place] [address] May Dysuria R30.0 and Vaginal itching L29.8 [facility] [place] [address], [place] [address] Apr, [facility] [place] [address] [id number] [place] [address] Apr Diabetes E11.9 ; Dysuria R30.0 ; Diabetic neuropathy E11.40 ; Anemia D64.9 and Vaginal discharge N89.8 [facility] [place] [address] 6782265100[place] [address] Jun, [address] [id number] Jun, Anemia D64.9 ; Anxiety F41.9 ; Diabetes E11.9 and Diabetic neuropathy E11.40 [address] [address] May, [facility] [place] [id number] [place] [address] Apr, [place] [id number] [address] Apr, Anemia D64.9 ; Anxiety F41.9 ; Diabetes E11.9 and Diabetic neuropathy E11.40 [place] [id number] [id number] Mar, Acute costochondritis M94.0 [address] [address] Mar, Bilateral low back pain without sciatica M54.5 and Bereavement Z63.4 [place] [id number] [place] [id number] Mar, Obstructive chronic bronchitis with acute exacerbation J44.1 ; Herpes zoster without complication B02.9 and [place] N91.2 [place] [id number] [place] [id number] Mar, [place] [id number] [place] [id number] Mar, [address] [id number] Feb, History of recent traumatic injury of head V15.52 ; Diabetes type 2, uncontrolled 250.02 and Visual disturbance 368.9 [address] [address] Feb, History of recent traumatic injury of head V15.52 ; Visual disturbance 368.9 and Diabetes type 2, uncontrolled 250.02 IMMUNIZATIONS No Known Immunizations SOCIAL HISTORY Never Assessed REASON FOR VISIT Diabetes-follow up Efra hylton PLAN OF CARE Activity Details Follow Up 4 Weeks Reason:dm mgmt VITAL SIGNS Height 63.50 in 2016-11-15 Weight 121.2 lbs 2016-11-15 Temperature 97.9 degrees Fahrenheit 2016-11-15 Heart Rate 80 bpm 2016-11-15 Respiratory Rate 18 2016-11-15 BMI 21.13 kg/m2 2016-11-15 Blood pressure systolic 122 mmHg 2016-11-15 Blood pressure diastolic 78 mmHg 2016-11-15 MEDICATIONS Medication Instructions Dosage Frequency Start Date End Date Duration Status MetFORMIN HCl ER 500 MG Orally 2 times a day 2 tablet 12h Active Glucocard Expression Test 1 glucometer as directed Nov, Active Lisinopril 10 mg Orally Once a day 1 tablet 24h 30 days Active Glucocard Expression Test - subcutaneously 2 times a day as directed 12h 09 Nov, 2016 30 days Active Ropinirole HCl 1 MG 1 tablet 1 to 3 hours before bedtime 30 days Active Lantus 100 unit/ml Subcutaneous Once a day at night 15 units Active Simvastatin 40 MG Orally Once a day 1 tablet in the evening 24h Active Salonpas Gel Active Acyclovir 800 MG Orally Five times a day for 10 days 1 tablet Mar, Active RESULTS No Results PROCEDURES No Known [...] infection 2004 Hospitalization History in rehab at [place] 2016 Hospitalization History Stroke 05/2017 Hospitalization History surgeries Hospitalization History Elevated B/S 07/2017
--- OUTSIDE RECORDS SUMMARY | 2018-05-13 11:09 | XMS REPORT ---
Author Author CHRIS BEKCWITH [facility] Address [address] [place] [address] Care Team Providers Care Elementary Assistant Principal Name Role Phone CHRIS BECKWITH Unavailable PROBLEMS Type Condition ICD9-CM Code YSO78-ZE Code Onset Dates Condition Status SNOMED Code Problem Type 2 diabetes mellitus with hyperglycemia E11.65 Active 511888716404736 Problem Sleep apnea in adult G47.30 Active 07923987 Problem Hyperlipidemia, unspecified E78.5 Active 41430651 Problem Abnormal mammogram of right breast R92.8 Active 253632639 Problem Breast asymmetry N64.89 Active 210101601 Problem Moderately severe depression F32.2 Active 134479463 Problem Hypoglycemia associated with type 2 diabetes mellitus E11.649 Active 597572346 Problem Hypoglycemia E16.2 Active 789157136 Problem Cerebrovascular accident (CVA), unspecified mechanism I63.9 Active 030811355 Problem Essential hypertension I10 Active 55229955 Problem Cocaine abuse F14.10 Active 37939042 Problem Diabetic neuropathy E11.40 Active 189027107 Problem Stage 2 chronic kidney disease N18.2 Active 861142081 Problem Anxiety F41.9 Active 76650431 Problem Obstructive sleep apnea syndrome G47.33 Active 92228763 ALLERGIES No Information ENCOUNTERS Encounter Location Date Diagnosis [facility] [address] [id number] [place] [address] Nov [facility] [address] [id number] [place] [address] Nov [facility] [address] [id number] [place] [address] October [facility] [address] [id number] [place] [address] October [facility] [address] [id number] [place] [address] October Type 2 diabetes mellitus with hyperglycemia E11.65 and Surgical procedure on lower extremity within past 6 months Z98.890 [facility] [place] [address] [id number] [place] [address] October [facility] [place] [address] [id number] [place] [address] October [facility] [address] [facility] [id number] [place] [address] October, [facility] [place] [address] [id number] [place] [address] October Sleep apnea in adult G47.30 [facility] [place] [address] [id number] [place] [address] October Type 2 diabetes mellitus with hyperglycemia E11.65 [facility] [place] [address] [id number] [place] [address] Sep [facility] [place] [address] [id number] [place] [address] Sep Breast asymmetry N64.89 [facility] [place] [address] [id number] [place] [address] Sep [facility] [place] [address] [id number] [place] [address] Sep Type 2 diabetes mellitus with hyperglycemia E11.65 ; Cocaine abuse F14.10 and Open wound of right great toe, subsequent encounter S91.101D [facility] [place] [address] [id number] [place] [address] Sep [facility] [place] [address] [id number] [place] [address] Aug [facility] [place] [address] [id number] [place] [address] Aug [facility] [place] [address] [id number] [place] [address] Aug Type 2 diabetes mellitus with hyperglycemia E11.65 [facility] [place] [address] [id number] [place] [address] Aug [facility] [address] [facility] [id number] [place] [address] Aug, [facility] [place] [address] [id number] [place] [address] Jul [facility] [place] [address] [id number] [place] [address] Jul Diabetic neuropathy E11.40 ; Essential hypertension I10 and Type 2 diabetes mellitus with hyperglycemia E11.65 [facility] [place] [address] [id number] [place] [address] Jul [facility] [place] [address] [id number] [place] [address] Jul [facility] [place] [address] [id number] [place] [address] Jul [facility] [place] [address] [id number] [place] [address] Jul [facility] [place] [address] [id number] [place] [address] Jul [facility] [place] [address] [id number] [place] [address] Jul Type 2 diabetes mellitus with hyperglycemia E11.65 ; Open wound of right great toe, subsequent encounter S91.101D ; Essential hypertension I10 and Diabetic neuropathy E11.40 [facility] [address] [id number] [place] [id number] Jul, [facility] [place] [address] [id number] [place] [address] Jun [facility] [place] [address] [id number] [place] [address] Jun Type 2 diabetes mellitus with hyperglycemia E11.65 [facility] [place] [address] [id number] [place] [address] Jun [facility] [place] [address] [id number] [place] [address] Jun [facility] [place] [address] [id number] [place] [address] Jun Abnormal mammogram of right breast R92.8 and Breast asymmetry N64.89 [facility] [place] [address] [id number] [place] [address] Jun [facility] [place] [address] [id number] [place] [address] Jun [facility] [place] [address] [id number] [place] [address] May Hypoglycemia E16.2 [facility] [place] [address] [id number] [place] [address] May Abnormal neurological exam R29.90 [facility] [place] [address] [id number] [place] [address] May [facility] [place] [address] [id number] [place] [address] May Type 2 diabetes mellitus with hyperglycemia E11.65 [facility] [place] [address] [id number] [place] [address] May Breast cancer screening Z12.31 and Hematuria, unspecified type R31.9 [facility] [place] [address] [id number] [place] [address] May [facility] [place] [address] [id number] [place] [address] May Type 2 diabetes mellitus with hyperglycemia E11.65 ; Essential hypertension I10 ; Moderately severe depression F32.2 and Confusion R41.0 [place] [address] [address] May, [facility] [place] [address] [id number] [place] [address] May Cerebrovascular accident (CVA), unspecified mechanism I63.9 ; Essential hypertension I10 ; Hyperlipidemia, unspecified E78.5 and Type 2 diabetes mellitus with hyperglycemia E11.65 [place] [address] [address] May, [place] [address] [place] [id number] [place] [address] [place] [address] May, [facility] [place] [address] [id number] [place] [address] May [facility] [place] [address] [id number] [place] [address] May Diabetic neuropathy E11.40 and Diabetes E11.9 [facility] [place] [address] [id number] [place] [address] Apr [facility] [place] [address] [id number] [place] [address] Apr Subacute maxillary sinusitis J01.00 ; Hypoglycemia associated with type 2 diabetes mellitus E11.649 and Intractable episodic headache, unspecified headache type R51 [facility] [place] [address] [id number] [place] [address] Apr Diabetic neuropathy E11.40 and Anxiety F41.9 [facility] [place] [address] [id number] [place] [address] Apr [facility] [place] [address] [id number] [place] [address] Apr Type 2 diabetes mellitus with hyperglycemia E11.65 ; Subacute maxillary sinusitis J01.00 ; Diabetic neuropathy E11.40 and Sleep apnea in adult G47.30 [facility] [address] [facility] [id number] [place] [address] Apr, [facility] [place] [address] [id number] [place] [address] Apr [facility] [place] [address] [id number] [place] [address] Apr [facility] [place] [address] [id number] [place] [address] Apr Subacute maxillary sinusitis J01.00 [facility] [address] [facility] [id number] [place] [address] Apr, Right foot drop M21.371 [facility] [place] [address] [id number] [place] [address] Apr [facility] [place] [address] [id number] [place] [address] Mar [facility] [place] [address] [id number] [place] [address] Mar Essential hypertension I10 ; Type 2 diabetes mellitus with hyperglycemia E11.65 ; Encounter for immunization Z23 ; Cocaine abuse F14.10 and Hyperlipidemia, unspecified E78.5 [facility] [place] [address] [id number] [place] [address] Mar [facility] [address] [address] Mar, [facility] [place] [address] [id number] [place] [address] Feb [facility] [address] [id number] [place] [address] Feb Type 2 diabetes mellitus with hyperglycemia E11.65 and Acute right ankle pain M25.571 [facility] [place] [address] [id number] [place] [address] Feb Weight loss R63.4 and Anxiety F41.9 [place] [address] [place] [id number] [place] [address] Jan, [facility] [id number] [place] [address] Jan, [place] [address] [id number] [place] [address] Jan, [facility] [id number] [place] [address] Jan, Diabetes E11.9 [facility] [place] [address] [id number] [place] [address] Jan Sprain of right ankle, unspecified ligament, initial encounter S93.401A [facility] [place] [address] [id number] [place] [address] Jan Essential hypertension I10 ; Anxiety F41.9 and Type 2 diabetes mellitus with hyperglycemia E11.65 [facility] [address] [facility] [id number] [address] Jan, Diabetes E11.9 [facility] [address] [facility] [id number] [place] [address] Jan, [facility] [address] [address] Jan, [address] [id number] [place] [address] Jan [facility] [address] [facility] [id number] [address] Jan, [facility] [address] [address] Jan, [facility] [address] [address] Jan, [facility] [address] [address] Jan, [facility] [address] [address] Jan, Unintentional weight loss R63.4 ; Stage 2 chronic kidney disease N18.2 ; Exposure to hepatitis C Z20.5 ; Diabetic neuropathy E11.40 ; Obstructive sleep apnea syndrome G47.33 ; Essential hypertension I10 and Type 2 diabetes mellitus with hyperglycemia E11.65 [facility] [address]100[place] [address] Jan, [facility] [address] [place] [address] [id number] [address] Jan, Type 2 diabetes mellitus with hyperglycemia E11.65 ; Diabetic neuropathy E11.40 and Essential hypertension I10 [facility] [address] [place] [id number] [address] Dec, Diabetes E11.9 [facility] [address] [id number] [address] Dec, [facility] [address] [address] Dec, [facility] [address]100[place] [address] Dec, [facility] [address]100[place] [address] Dec, Dental examination Z01.20 [facility] [address] [place] [address] Dec, [facility] [address] [place] [address] Dec, Diabetes E11.9 [place] [address] [place] [address] Dec, Stage 2 chronic kidney disease N18.2 ; Exposure to hepatitis C Z20.5 ; Obstructive sleep apnea syndrome G47.33 and Type 2 diabetes mellitus with hyperglycemia E11.65 [facility] [address]100[place] [address] Dec, [facility] [address] [id number] [place] [address] Dec Diabetes E11.9 and Essential hypertension I10 [facility] [address] [address] Nov, Diabetes E11.9 [facility] [address] [address] Nov, Right foot pain M79.671 [facility] [id number] [id number] Nov, Right foot pain M79.671 [facility] [address] [id number] [place] [address] Nov Diabetes E11.9 [facility] [address] [id number] [place] [address] Nov Diabetes E11.[address] [facility] [address] [place] [id number] 16 Nov, 2016 Dental examination Z01.20 [facility] [place] [address] [id number] [place] [address] 09 Nov Diabetes E11.9 ; Cocaine abuse F14.10 and Shingles (herpes zoster) polyneuropathy B02.23 [facility] [place] [address] [id number] [place] [address] Nov [facility] [address] [facility] [id number] [place] [address] October, [facility] [place] [address] [id number] [place] [address] October [facility] [place] [address] [id number] [place] [address] October Unintentional weight loss R63.4 [facility] [place] [address] [id number] [place] [address] October Abscess L02.91 [facility] [place] [address] [id number] [place] [address] October Diabetes E11.9 ; Unintentional weight loss R63.4 ; History of hematuria Z87.448 and Cocaine abuse F14.10 [facility] [place] [address] [id number] [place] [address] October Diabetes E11.9 [facility] [place] [address] [id number] [place] [address] October Essential hypertension I10 and Abscess L02.91 [facility] [place] [address] [id number] [place] [address] Jun [facility] [place] [address] [id number] [place] [address] May Breast cancer screening Z12.39 ; Diabetes E11.9 and Anxiety F41.9 [facility] [place] [address] [id number] [place] [id number] May, Diabetes E11.9 [facility] [place] [address] [id number] [place] [address] May Diabetes E11.9 and Anemia D64.9 [facility] [place] [address] [id number] [place] [address] 14 May Anxiety F41.9 [facility] [place] [address] [id number] [place] [address] 08 May [facility] [place] [address] [id number] [place] [address] May Dysuria R30.0 [facility] [place] [address] [id number] [place] [address] May [facility] [place] [address] [id number] [place] [address] May Dysuria R30.0 and Vaginal itching L29.8 [facility] [address] [place] [id number] [place] [address] Apr, [facility] [place] [address] [id number] [place] [address] Apr Diabetes E11.9 ; Dysuria R30.0 ; Diabetic neuropathy E11.40 ; Anemia D64.9 and Vaginal discharge N89.8 [facility] [address] [place] [place] [address] Jun, [place] [id number] [place] [phone] Jun, Anemia D64.9 ; Anxiety F41.9 ; Diabetes E11.9 and Diabetic neuropathy E11.40 [place] [id number] [place] [id number] May, [facility] [address] [place] [address] Apr, [place] [id number] [place] [id number] Apr, Anemia D64.9 ; Anxiety F41.9 ; Diabetes E11.9 and Diabetic neuropathy E11.40 [place] [address] [place] [id number] Mar, Acute costochondritis M94.0 [address] [id number] Mar, Bilateral low back pain without sciatica M54.5 and Bereavement Z63.4 [address] [id number] Mar, Obstructive chronic bronchitis with acute exacerbation J44.1 ; Herpes zoster without complication B02.9 and [place] N91.2 [address]100[place] [id number] Mar, [address] [id number] Mar, [address] [id number] Feb, History of recent traumatic injury of head V15.52 ; Diabetes type 2, uncontrolled 250.02 and Visual disturbance 368.9 [place] [id number] [id number] Feb, History of recent traumatic injury of [...] infection 2005 Hospitalization History in rehab at [facility] 2017 Hospitalization History Stroke 05/2017 Hospitalization History surgeries Hospitalization History Elevated B/S 07/2017 Hospitalization History [facility] - blood clot LRE 10/2017
--- OUTSIDE RECORDS SUMMARY | 2018-05-13 11:09 | XMS REPORT ---
Author Author CHRIS BECKWITH [facility] Address [address] [place] [address] Care Team Providers Care Vending Supervisor Name Role Phone CHRIS BECKWITH Unavailable PROBLEMS Type Condition ICD9-CM Code CNN87-RH Code Onset Dates Condition Status SNOMED Code Problem Sleep apnea in adult G47.30 Active 07881192 Problem Moderately severe depression F32.2 Active 147077266 Problem Hypoglycemia associated with type 2 diabetes mellitus E11.649 Active 148698940 Problem PVD (peripheral vascular disease) I73.9 Active 546453711 Problem PAD (peripheral artery disease) I73.9 Active 615148226 Problem Hypoglycemia E16.2 Active 279294727 Problem Cerebrovascular accident (CVA), unspecified mechanism I63.9 Active 328499346 Problem Breast asymmetry N64.89 Active 330138941 Problem Abnormal mammogram of right breast R92.8 Active 669595474 Problem Diabetic neuropathy E11.40 Active 715287683 Problem Anxiety F41.9 Active 27928038 Problem Obstructive sleep apnea syndrome G47.33 Active 88780246 Problem Stage 2 chronic kidney disease N18.2 Active 420967803 Problem Essential hypertension I10 Active 81355726 Problem Type 2 diabetes mellitus with hyperglycemia E11.65 Active 038118762692585 Problem Cocaine abuse F14.10 Active 99805102 Problem Hyperlipidemia, unspecified E78.5 Active 82722372 ALLERGIES Substance Reaction Event Type Date Status Phenergan nausea Drug Allergy May, Active Penicillin V Potassium nausea Drug Allergy May, Active Codeine Sulfate itch Drug Allergy May, Active ENCOUNTERS Encounter Location Date Diagnosis [facility] [place] [address] [id number] [place] [address] Nov [facility] [place] [address] [id number] [place] [address] Nov [facility] [address] [id number] [place] [address] 08 Nov PVD (peripheral vascular disease) I73.9 ; Type 2 diabetes mellitus with hyperglycemia E11.65 and PAD (peripheral artery disease) I73.9 [facility] [place] [address] [id number] [place] [address] Nov [facility] [place] [address] [id number] [place] [address] Nov [facility] [place] [address] [id number] [place] [address] Nov [facility] [place] [address] [id number] [place] [address] October [facility] [place] [address] [id number] [place] [address] October [facility] [place] [address] [id number] [place] [address] October Type 2 diabetes mellitus with hyperglycemia E11.65 and Surgical procedure on lower extremity within past 6 months Z98.890 [facility] [place] [address] [id number] [place] [address] October [facility] [place] [address] [id number] [place] [address] October [facility] [address] [facility] [id number] [place] [address] October, [facility] [place] [address] [id number] [place] [address] October Sleep apnea in adult G47.30 [facility] [place] [address] [id number] [place] [address] October Type 2 diabetes mellitus with hyperglycemia E11.65 [facility] [place] [address] [id number] [place] [address] Sep [facility] [place] [address] [id number] [place] [address] Sep Breast asymmetry N64.89 [facility] [place] [address] [id number] [place] [address] Sep [facility] [place] [address] [id number] [place] [address] Sep Type 2 diabetes mellitus with hyperglycemia E11.65 ; Cocaine abuse F14.10 and Open wound of right great toe, subsequent encounter S91.101D [facility] [place] [address] [id number] [place] [address] Sep [facility] [place] [address] [id number] [place] [address] Aug [facility] [place] [address] [id number] [place] [address] Aug [facility] [place] [address] [id number] [place] [address] Aug Type 2 diabetes mellitus with hyperglycemia E11.65 [facility] [place] [address] [id number] [place] [address] Aug [facility] [address] [facility] [id number] [place] [address] Aug, [facility] [place] [address] [id number] [place] [address] Jul [facility] [place] [address] [id number] [place] [address] Jul Diabetic neuropathy E11.40 ; Essential hypertension I10 and Type 2 diabetes mellitus with hyperglycemia E11.65 [facility] [place] [address] [id number] [place] [address] Jul [facility] [place] [address] [id number] [place] [address] Jul [facility] [place] [address] [id number] [place] [address] Jul [facility] [place] [address] [id number] [place] [address] Jul [facility] [place] [address] [id number] [place] [address] Jul [facility] [place] [address] [id number] [place] [address] Jul Type 2 diabetes mellitus with hyperglycemia E11.65 ; Open wound of right great toe, subsequent encounter S91.101D ; Essential hypertension I10 and Diabetic neuropathy E11.[address] [facility] [address] [id number] [place] [address] Jul, [facility] [place] [address] [id number] [place] [address] Jun [facility] [place] [address] [id number] [place] [address] Jun Type 2 diabetes mellitus with hyperglycemia E11.65 [facility] [place] [address] [id number] [place] [address] Jun [facility] [place] [address] [id number] [place] [address] Jun [facility] [place] [address] [id number] [place] [address] Jun Abnormal mammogram of right breast R92.8 and Breast asymmetry N64.89 [facility] [place] [address] [id number] [place] [address] Jun [facility] [place] [address] [id number] [place] [address] Jun [facility] [place] [address] [id number] [place] [address] May Hypoglycemia E16.2 [facility] [place] [address] [id number] [place] [address] May Abnormal neurological exam R29.90 [facility] [place] [address] [id number] [place] [address] May [facility] [place] [address] [id number] [place] [address] May Type 2 diabetes mellitus with hyperglycemia E11.65 [facility] [place] [address] [id number] [place] [address] May Breast cancer screening Z12.31 and Hematuria, unspecified type R31.9 [facility] [place] [address] [id number] [place] [address] May [facility] [address] [id number] [place] [address] May Type 2 diabetes mellitus with hyperglycemia E11.65 ; Essential hypertension I10 ; Moderately severe depression F32.2 and Confusion R41.0 [place] [address] [facility] [id number] [place] [address] May, [facility] [place] [address] [id number] [place] [address] May Cerebrovascular accident (CVA), unspecified mechanism I63.9 ; Essential hypertension I10 ; Hyperlipidemia, unspecified E78.5 and Type 2 diabetes mellitus with hyperglycemia E11.65 [place] [address] [id number] [address] May, [place] [address] [id number] [address] May, [facility] [address] [id number] [place] [address] May [facility] [address] [id number] [place] [address] May Diabetic neuropathy E11.40 and Diabetes E11.9 [facility] Branch[facility] [address] [id number] [place] [address] Apr [facility] [address] [id number] [place] [address] Apr Subacute maxillary sinusitis J01.00 ; Hypoglycemia associated with type 2 diabetes mellitus E11.649 and Intractable episodic headache, unspecified headache type R51 [facility] [place] [address] [id number] [place] [address] Apr Diabetic neuropathy E11.40 and Anxiety F41.9 [facility] [place] [address] [id number] [place] [address] Apr [facility] [place] [address] [id number] [place] [address] Apr Type 2 diabetes mellitus with hyperglycemia E11.65 ; Subacute maxillary sinusitis J01.00 ; Diabetic neuropathy E11.40 and Sleep apnea in adult G47.30 [facility] [address] [id number] [address] Apr, [facility] [place] [address] [id number] [place] [address] Apr [facility] [place] [address] [id number] [place] [address] Apr [facility] [place] [address] [id number] [place] [address] Apr Subacute maxillary sinusitis J01.00 [place] [address] [id number] [address] Apr, Right foot drop M21.371 [facility] [place] [address] [id number] [place] [address] Apr [facility] [place] [address] [id number] [place] [address] Mar [facility] [place] [address] [id number] [place] [address] Mar Essential hypertension I10 ; Type 2 diabetes mellitus with hyperglycemia E11.65 ; Encounter for immunization Z23 ; Cocaine abuse F14.10 and Hyperlipidemia, unspecified E78.5 [facility] [place] [address] [id number] [place] [address] Mar [place] [address] [id number] [address] Mar, [facility] [place] [address] [id number] [place] [address] Feb [facility] [place] [address] [id number] [place] [address] Feb Type 2 diabetes mellitus with hyperglycemia E11.65 and Acute right ankle pain M25.571 [facility] [place] [address] [id number] [place] [address] Feb Weight loss R63.4 and Anxiety F41.9 [place] [address]100[place] [address] Jan, [facility] [address] [id number] [address] Jan, [facility] [address]00565100[place] [address] Jan, [facility] [address]65100[place] [address] Jan, Diabetes E11.9 [facility] [address] [id number] [place] [address] Jan Sprain of right ankle, unspecified ligament, initial encounter S93.401A [facility] [place] [address] [id number] [place] [address] Jan Essential hypertension I10 ; Anxiety F41.9 and Type 2 diabetes mellitus with hyperglycemia E11.65 [facility] [address]00565100[place] [address] Jan, Diabetes E11.9 [facility] [address]00565100[place] [address] Jan, [facility] [address]00565100[place] [address] Jan, [facility] [address] [id number] [place] [address] Jan [facility] [address]00565100[place] [address] Jan, [facility] [address] [id number] [address] Jan, [facility] [address]65100[place] [address] Jan, [facility] [address] [id number] [address] Jan, [facility] [address]65100[place] [address] Jan, Unintentional weight loss R63.4 ; Stage 2 chronic kidney disease N18.2 ; Exposure to hepatitis C Z20.5 ; Diabetic neuropathy E11.40 ; Obstructive sleep apnea syndrome G47.33 ; Essential hypertension I10 and Type 2 diabetes mellitus with hyperglycemia E11.65 [facility] [address]00565100[place] [address] Jan, [facility] [id number] [place] [address] Jan, Type 2 diabetes mellitus with hyperglycemia E11.65 ; Diabetic neuropathy E11.40 and Essential hypertension I10 [facility] [id number] [place] [address] Dec, Diabetes E11.9 [facility] [address] [place] [address] Dec, [facility] [id number] [place] [address] Dec, [facility] [address] [place] [address] Dec, [facility] [id number] [place] [address] Dec, Dental examination Z01.20 [facility] [address]00565100[place] [address] Dec, [facility] [address] [place] [address] Dec, Diabetes E11.9 [facility] [address]00565100[place] [address] Dec, Stage 2 chronic kidney disease N18.2 ; Exposure to hepatitis C Z20.5 ; Obstructive sleep apnea syndrome G47.33 and Type 2 diabetes mellitus with hyperglycemia E11.65 [facility] [address]00565100[place] [address] Dec, [facility] [place] [address] [id number] [place] [address] Dec Diabetes E11.9 and Essential hypertension I10 [facility] [address] [id number] [address] Nov, Diabetes E11.9 [facility] [address] [id number] [address] Nov, Right foot pain M79.671 [facility] [address] [id number] [id number] Nov, Right foot pain M79.671 [facility] [place] [address] [id number] [place] [address] Nov Diabetes E11.9 [facility] [place] [address] [id number] [place] [address] Nov Diabetes E11.9 [facility] [address] [id number] [address] Nov, Dental examination Z01.20 [facility] Branch[facility] [address] [id number] [place] [address] Nov Diabetes E11.9 ; Cocaine abuse F14.10 and Shingles (herpes zoster) polyneuropathy B02.23 [facility] [place] [address] [id number] [place] [address] Nov [facility] [address] [facility] [id number] [place] [address] October, [facility] [place] [address] [id number] [place] [address] October [facility] [place] [address] [id number] [place] [address] October Unintentional weight loss R63.4 [facility] [place] [address] [id number] [place] [address] October Abscess L02.91 [facility] [place] [address] [id number] [place] [address] October Diabetes E11.9 ; Unintentional weight loss R63.4 ; History of hematuria Z87.448 and Cocaine abuse F14.10 [facility] [place] [address] [id number] [place] [address] October Diabetes E11.9 [facility] [place] [address] [id number] [place] [address] October Essential hypertension I10 and Abscess L02.91 [facility] [place] [address] [id number] [place] [address] Jun [facility] [place] [address] [id number] [place] [address] May Breast cancer screening Z12.39 ; Diabetes E11.9 and Anxiety F41.9 [facility] [place] [address] [facility] [id number] [place] [id number] May, Diabetes E11.9 [facility] [place] [address] [id number] [place] [address] May Diabetes E11.9 and Anemia D64.9 [facility] [place] [address] [id number] [place] [address] May Anxiety F41.9 [facility] [place] [address] [id number] [place] [address] May [facility] [place] [address] [id number] [place] [address] May Dysuria R30.0 [facility] [place] [address] [id number] [place] [address] May [facility] [place] [address] [id number] [place] [address] May Dysuria R30.0 and Vaginal itching L29.8 [facility] [address] [id number] [address] Apr, [facility] [place] [address] [id number] [place] [address] 14 Apr Diabetes E11.9 ; Dysuria R30.0 ; Diabetic neuropathy E11.40 ; Anemia D64.9 and Vaginal discharge N89.8 [facility] [address] [address] Jun, [place] [id number] [place] [id number] Jun, Anemia D64.9 ; Anxiety F41.9 ; Diabetes E11.9 and Diabetic neuropathy E11.40 [place] [id number] [place] [id number] May, [facility] [id number] [place] [address] Apr, [place] [id number] [place] [id number] Apr, Anemia D64.9 ; Anxiety F41.9 ; Diabetes E11.9 and Diabetic neuropathy E11.40 [place] [id number] [place] [id number] Mar, Acute costochondritis M94.[address] [id number] Mar, Bilateral low back pain without sciatica M54.5 and Bereavement Z63.4 [place] [id number] [place] [id number] Mar, Obstructive chronic bronchitis with acute exacerbation J44.1 ; Herpes zoster without complication B02.9 and [place] N91.2 [place] [id number] [place] [id number] Mar, [place] [id number] [place] [id number] Mar, [address] [id number] Feb, History of recent traumatic injury of head V15.52 ; Diabetes type 2, uncontrolled 250.02 and Visual disturbance 368.9 [place] [id number] [place] [id number] Feb, History of recent traumatic injury of head V15.52 ; Visual disturbance 368.9 and Diabetes type 2, uncontrolled 250.02 IMMUNIZATIONS No Known Immunizations SOCIAL HISTORY Never Assessed REASON FOR VISIT Diabetes qchali-xx-ozcbkl up on glimeripide. , Pt states fasting this morning 68 , yesterday 97. M.ROSA Valladares PLAN OF CARE Activity Details Follow Up 2 Months Reason:f/u dm mgmt VITAL SIGNS Height 63.50 in 2017-06-03 Weight 127.2 lbs 2017-06-03 Temperature 98.7 degrees Fahrenheit 2017-06-03 Heart Rate 90 bpm 2017-06-03 Respiratory Rate 18 2017-06-03 BMI 22.18 kg/m2 2017-06-03 Blood pressure systolic 142 mmHg 2017-06-03 Blood pressure diastolic 80 mmHg 2017-06-03 MEDICATIONS Medication Instructions Dosage Frequency Start Date End Date Duration Status Cephalexin 500 mg Orally every 12 hrs 1 capsule 12May, 07 days Not-Taking Fluticasone Propionate 50 MCG/ACT Nasally Once a day 1 spray in each nostril 24h 30 day(s) Not-Taking Amlodipine Besylate 10 MG Orally Once a day 1 tablet 24h May, Active Aspirin 81 MG Orally Once a day 1 tablet 24h May, Active Ropinirole HCl 1 MG Orally at bedtime 1 tablet 1 to 3 hours before bedtime 30 days Active Glucocard Expression Test - subcutaneously 2 times a day as directed Nov, 30 days Active NovoLog Flexpen 100 UNIT/ML Subcutaneous 3 times a day 3 units 8h Jan, Not-Taking Multi Complete Not-Taking Glucocard Expression Test - as directed Nov, Not- Taking Lisinopril 20 mg Orally Once a day 1 tablet 24h May, 30 day(s) Not-Taking HydrOXYzine HCl 25 MG Orally 2 times a day as needed for anxieyt 1 tablet as needed Feb, 30 day(s) Not-Taking Protonix 40 mg Orally Once a day 1 tablet 24h May, 30 day(s) Not-Taking Glimepiride 4 MG Orally Once a day 1 tablet with breakfast or the first main meal of the day 24h Apr, Active Lisinopril 20 MG Orally Once a day 1 tablet 24h Jan, Active Atorvastatin Calcium 20 mg Orally Once a day 1 tablet 24h May, Active Tresiba FlexTouch 100 UNIT/ML Subcutaneous at bedtime Inject 10 units Jan, Not-Taking Acetaminophen 325 MG Orally Once a day 1 capsules as needed 24h May, Active Metformin HCl 850 MG Orally Twice a day 1 tablet with meals 12h May, Active RESULTS No Results PROCEDURES No Known [...] infection 2004 Hospitalization History in rehab at [place] 2016 Hospitalization History Stroke 05/2017 Hospitalization History surgeries Hospitalization History Elevated B/S 07/2017 Hospitalization History [facility] - blood clot LRE 10/2017 Hospitalization History [facility] - R ankle clot 11/2017
--- OUTSIDE RECORDS SUMMARY | 2018-05-13 11:09 | XMS REPORT ---
Author Author CHRIS BECKWITH [facility] Address [address] [place] [address] Care Team Providers Care Senior Human Resources Representative Name Role Phone CHRIS BECKWITH Unavailable PROBLEMS Type Condition ICD9-CM Code [id number] Code Onset Dates Condition Status SNOMED Code Problem Anemia D64.9 Active 555009832 Problem Anxiety F41.9 Active 70273352 Problem Stage 2 chronic kidney disease N18.2 Active 888261458 Problem Obstructive sleep apnea syndrome G47.33 Active 70310004 Problem Essential hypertension I10 Active 98377538 Problem Diabetic neuropathy E11.40 Active 494778728 Problem Type 2 diabetes mellitus with hyperglycemia E11.65 Active 119308450702776 Problem Cocaine abuse F14.10 Active 37681452 ALLERGIES Unknown Allergies SOCIAL HISTORY No smoking Hx information available PLAN OF CARE VITAL SIGNS MEDICATIONS Unknown Medications RESULTS No Results PROCEDURES No Known procedures IMMUNIZATIONS No Known Immunizations
--- OUTSIDE RECORDS SUMMARY | 2018-05-13 11:10 | XMS REPORT ---
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 Role Phone CHRIS BECKWITH Unavailable PROBLEMS Type Condition ICD9-CM Code XGX28-RX Code Onset Dates Condition Status SNOMED Code Problem Sleep apnea in adult G47.30 Active 01139311 Problem Moderately severe depression F32.2 Active 271767769 Problem Hypoglycemia associated with type 2 diabetes mellitus E11.649 Active 219773495 Problem PVD (peripheral vascular disease) I73.9 Active 623882467 Problem PAD (peripheral artery disease) I73.9 Active 840103355 Problem Hypoglycemia E16.2 Active 317474414 Problem Cerebrovascular accident (CVA), unspecified mechanism I63.9 Active 372399952 Problem Breast asymmetry N64.89 Active 195418507 Problem Abnormal mammogram of right breast R92.8 Active 753225832 Problem Diabetic neuropathy E11.40 Active 013461274 Problem Anxiety F41.9 Active 64633485 Problem Obstructive sleep apnea syndrome G47.33 Active 91392293 Problem Stage 2 chronic kidney disease N18.2 Active 368004487 Problem Essential hypertension I10 Active 08817072 Problem Type 2 diabetes mellitus with hyperglycemia E11.65 Active 744987586263128 Problem Cocaine abuse F14.10 Active 14436474 Problem Hyperlipidemia, unspecified E78.5 Active 72585962 ALLERGIES No Information ENCOUNTERS Encounter Location Date Diagnosis [facility] [address] [id number] [place] [address] Nov [facility] [address] [id number] [place] [address] Nov [facility] [address] [id number] [place] [address] Nov PVD (peripheral vascular disease) I73.9 ; Type 2 diabetes mellitus with hyperglycemia E11.65 and PAD (peripheral artery disease) I73.9 [facility] [place] [address] [id number] [place] [address] Nov [facility] [place] [address] [id number] [place] [address] Nov [facility] [place] [address] [id number] [place] [address] Nov [facility] [place] [address] [id number] [place] [address] October [facility] [place] [address] [id number] [place] [address] October [facility] [place] [address] [id number] [place] [address] October Type 2 diabetes mellitus with hyperglycemia E11.65 and Surgical procedure on lower extremity within past 6 months Z98.890 [facility] [place] [address] [id number] [place] [address] October [facility] [place] [address] [id number] [place] [address] October [facility] [address] [facility] [id number] [place] [address] October, [facility] [place] [address] [id number] [place] [address] October Sleep apnea in adult G47.30 [facility] [place] [address] [id number] [place] [address] October Type 2 diabetes mellitus with hyperglycemia E11.65 [facility] [place] [address] [id number] [place] [address] Sep [facility] [place] [address] [id number] [place] [address] Sep Breast asymmetry N64.89 [facility] [place] [address] [id number] [place] [address] Sep [facility] [place] [address] [id number] [place] [address] Sep Type 2 diabetes mellitus with hyperglycemia E11.65 ; Cocaine abuse F14.10 and Open wound of right great toe, subsequent encounter S91.101D [facility] [place] [address] [id number] [place] [address] Sep [facility] [place] [address] [id number] [place] [address] Aug [facility] [place] [address] [id number] [place] [address] Aug [facility] [place] [address] [id number] [place] [address] Aug Type 2 diabetes mellitus with hyperglycemia E11.65 [facility] [place] [address] [id number] [place] [address] Aug [facility] [address] [facility] [id number] [place] [address] Aug, [facility] [place] [address] [id number] [place] [address] Jul [facility] [place] [address] [id number] [place] [address] Jul Diabetic neuropathy E11.40 ; Essential hypertension I10 and Type 2 diabetes mellitus with hyperglycemia E11.65 [facility] [place] [address] [id number] [place] [address] Jul [facility] [place] [address] [id number] [place] [address] Jul [facility] [place] [address] [id number] [place] [address] Jul [facility] [place] [address] [id number] [place] [address] Jul [facility] [place] [address] [id number] [place] [address] Jul [facility] [place] [address] [id number] [place] [address] Jul Type 2 diabetes mellitus with hyperglycemia E11.65 ; Open wound of right great toe, subsequent encounter S91.101D ; Essential hypertension I10 and Diabetic neuropathy E11.40 [facility] [address] [id number] [place] [id number] Jul, [facility] [place] [address] [id number] [place] [address] Jun [facility] [place] [address] [id number] [place] [address] Jun Type 2 diabetes mellitus with hyperglycemia E11.65 [facility] [place] [address] [id number] [place] [address] Jun [facility] [place] [address] [id number] [place] [address] Jun [facility] [place] [address] [id number] [place] [address] 17 Jun Abnormal mammogram of right breast R92.8 and Breast asymmetry N64.89 [facility] [place] [address] [id number] [place] [address] 15 Jun [facility] [place] [address] [id number] [place] [address] Jun [facility] [place] [address] [id number] [place] [address] May Hypoglycemia E16.2 [facility] [place] [address] [id number] [place] [address] May Abnormal neurological exam R29.90 [facility] [place] [address] [id number] [place] [address] May [facility] [place] [address] [id number] [place] [address] May Type 2 diabetes mellitus with hyperglycemia E11.65 [facility] [place] [address] [id number] [place] [address] May Breast cancer screening Z12.31 and Hematuria, unspecified type R31.9 [facility] [place] [address] [id number] [place] [address] May [facility] [place] [address] [id number] [place] [address] May Type 2 diabetes mellitus with hyperglycemia E11.65 ; Essential hypertension I10 ; Moderately severe depression F32.2 and Confusion R41.0 [place] [address] [address] May, [email or web address] [place] [address] [id number] [place] [address] May Cerebrovascular accident (CVA), unspecified mechanism I63.9 ; Essential hypertension I10 ; Hyperlipidemia, unspecified E78.5 and Type 2 diabetes mellitus with hyperglycemia E11.65 [place] [address], [place] [address] May, [place] [address] [address] May, [facility] [address] [id number] [place] [address] May [email or web address] [place] [address] [id number] [place] [address] May Diabetic neuropathy E11.40 and Diabetes E11.9 [facility] [place] [address] [id number] [place] [address] Apr [email or web address] [place] [address] [id number] [place] [address] Apr Subacute maxillary sinusitis J01.00 ; Hypoglycemia associated with type 2 diabetes mellitus E11.649 and Intractable episodic headache, unspecified headache type R51 [email or web address] [place] [address] [id number] [place] [address] Apr Diabetic neuropathy E11.40 and Anxiety F41.9 [email or web address] [place] [address] [id number] [place] [address] Apr [facility] [place] [address] [id number] [place] [address] Apr Type 2 diabetes mellitus with hyperglycemia E11.65 ; Subacute maxillary sinusitis J01.00 ; Diabetic neuropathy E11.40 and Sleep apnea in adult G47.30 [place] [address] [place] [id number] [address] Apr, [facility] [place] [address] [id number] [place] [address] Apr [facility] [place] [address] [id number] [place] [address] Apr [facility] [place] [address] [id number] [place] [address] Apr Subacute maxillary sinusitis J01.00 [place] [address] [place] [id number] [address] Apr, Right foot drop M21.371 [facility] [place] [address] [id number] [place] [address] Apr [facility] [place] [address] [id number] [place] [address] Mar [facility] [place] [address] [id number] [place] [address] Mar Essential hypertension I10 ; Type 2 diabetes mellitus with hyperglycemia E11.65 ; Encounter for immunization Z23 ; Cocaine abuse F14.10 and Hyperlipidemia, unspecified E78.5 [facility] [place] [address] [id number] [place] [address] Mar [place] [address] [address] Mar, [facility] [place] [address] [id number] [place] [address] Feb [facility] [place] [address] [id number] [place] [address] Feb Type 2 diabetes mellitus with hyperglycemia E11.65 and Acute right ankle pain M25.571 [facility] [place] [address] [id number] [place] [address] Feb Weight loss R63.4 and Anxiety F41.9 [place] [address], [place] [address] Jan, [place] [address] [place] [id number] [place] [address] Jan, [facility] [address], [place] [address] Jan, [facility] [address], [place] [address] Jan, Diabetes E11.9 [facility] [place] [address] [id number] [place] [address] Jan Sprain of right ankle, unspecified ligament, initial encounter S93.401A [facility] [place] [address] [id number] [place] [address] Jan Essential hypertension I10 ; Anxiety F41.9 and Type 2 diabetes mellitus with hyperglycemia E11.65 [facility] [address] [place] [address] Jan, Diabetes E11.9 [facility] [address] [place] [address] Jan, [facility] [address], [place] [address] Jan, [facility] MAN [address] [id number] [place] [address] [facility] [address] [address] Jan, [facility] [address]00565[address] [address] Jan, [facility] [address]65[address] [address] Jan, [facility] [address] [place] [address] Jan, [facility] [address], [place] [address] Jan, Unintentional weight loss R63.4 ; Stage 2 chronic kidney disease N18.2 ; Exposure to hepatitis C Z20.5 ; Diabetic neuropathy E11.40 ; Obstructive sleep apnea syndrome G47.33 ; Essential hypertension I10 and Type 2 diabetes mellitus with hyperglycemia E11.65 [facility] [address], [place] [address] Jan, [facility] [address] [place] [address] Jan, Type 2 diabetes mellitus with hyperglycemia E11.65 ; Diabetic neuropathy E11.40 and Essential hypertension I10 [facility] [address] [place] [address] Dec, Diabetes E11.9 [facility] [address] [place] [id number] [place] [address] Dec, [facility] [address] [place] [id number] [place] [address] Dec, [place] [address] [place] [id number] [place] [address] Dec, [facility] [address] [place] [address] Dec, Dental examination Z01.20 [facility] [address] [place] [address] Dec, [facility] [address] [place] [address] Dec, Diabetes E11.9 [facility] [address], [place] [address] Dec, Stage 2 chronic kidney disease N18.2 ; Exposure to hepatitis C Z20.5 ; Obstructive sleep apnea syndrome G47.33 and Type 2 diabetes mellitus with hyperglycemia E11.65 [facility] [address], [place] [address] Dec, [facility] [place] [address] [id number] [place] [address] Dec Diabetes E11.9 and Essential hypertension I10 [facility] [address] [place] [address], [place] [address] Nov, Diabetes E11.9 [facility] [address] [facility] [id number] [place] [address] Nov, Right foot pain M79.671 [facility] [place] [address] [facility] [id number] [place] [address] Nov, Right foot pain M79.671 [facility] [place] [address] [id number] [place] [address] Nov Diabetes E11.9 [facility] [place] [address] [id number] [place] [address] Nov Diabetes E11.9 [facility] [address] [facility] [id number] [place] [address] Nov, Dental examination Z01.20 [facility] [place] [address] [id number] [place] [address] Nov Diabetes E11.9 ; Cocaine abuse F14.10 and Shingles (herpes zoster) polyneuropathy B02.23 [facility] [place] [address] [id number] [place] [address] Nov [facility] [address] [facility] [id number] [place] [address] October, [facility] [place] [address] [id number] [place] [address] October [facility] [place] [address] [id number] [place] [address] October Unintentional weight loss R63.4 [facility] [place] [address] [id number] [place] [address] October Abscess L02.91 [facility] [place] [address] [id number] [place] [address] October Diabetes E11.9 ; Unintentional weight loss R63.4 ; History of hematuria Z87.448 and Cocaine abuse F14.10 [facility] [place] [address] [id number] [place] [address] October Diabetes E11.9 [facility] [place] [address] [id number] [place] [address] October Essential hypertension I10 and Abscess L02.91 [facility] [place] [address] [id number] [place] [address] Jun [facility] [place] [address] [id number] [place] [address] May Breast cancer screening Z12.39 ; Diabetes E11.9 and Anxiety F41.9 [facility] [place] [address] [facility] [id number] [place] [address] May, Diabetes E11.9 [facility] [place] [address] [id number] [place] [address] 15 May Diabetes E11.9 and Anemia D64.9 [facility] [place] [address] [id number] [place] [address] 14 May Anxiety F41.9 [facility] [place] [address] [id number] [place] [address] 08 May [facility] [place] [address] [id number] [place] [address] May Dysuria R30.0 [facility] [place] [address] [id number] [place] [address] 06 May [facility] [place] [address] [id number] [place] [address] 05 May Dysuria R30.0 and Vaginal itching L29.8 [facility] [address] [place] [id number] [address] Apr, [facility] [place] [address] [id number] [place] [address] 14 Apr Diabetes E11.9 ; Dysuria R30.0 ; Diabetic neuropathy E11.40 ; Anemia D64.9 and Vaginal discharge N89.8 [facility] [address] [facility] [id number] [address] Jun, [place] [address] [place] [id number] [place] [id number] Jun, Anemia D64.9 ; Anxiety F41.9 ; Diabetes E11.9 and Diabetic neuropathy E11.40 [address] [id number] May, [facility] [address] [place] 5993965100[place], [place] [address] Apr, [place] [id number] [place] [id number] Apr, Anemia D64.9 ; Anxiety F41.9 ; Diabetes E11.9 and Diabetic neuropathy E11.40 [place] [id number] [place] [id number] Mar, Acute costochondritis M94.0 [place] [id number] [place] [id number] Mar, Bilateral low back pain without sciatica M54.5 and Bereavement Z63.4 [place] [address] [place] [id number] Mar, Obstructive chronic bronchitis with acute exacerbation J44.1 ; Herpes zoster without complication B02.9 and [place] N91.2 [address] [id number] Mar, [place] [address] [id number] Mar, [place] [address] [id number] Feb, History of recent traumatic injury of head V15.52 ; Diabetes type 2, uncontrolled 250.02 and Visual disturbance 368.[address] [id number] Feb, History of recent traumatic injury of [...] 2005 Hospitalization History in rehab at [facility] 2016 Hospitalization History Stroke 05/2017 Hospitalization History surgeries Hospitalization History Elevated B/S 07/2017 Hospitalization History [facility] - blood clot LRE 10/2017 Hospitalization History [facility] - R ankle clot 11/2017
--- OUTSIDE RECORDS SUMMARY | 2018-05-13 11:10 | XMS REPORT ---
Author Author BARRETT SCHRADER Organization [facility] Address [address] [place] [address] Care Team Providers Care Shelving Supervisor Name Role Phone BARRETT SCHRADER Unavailable PROBLEMS Type Condition ICD9-CM Code ELH17-RD Code Onset Dates Condition Status SNOMED Code Problem Type 2 diabetes mellitus with hyperglycemia E11.65 Active 163348144188607 Problem Sleep apnea in adult G47.30 Active 56647058 Problem Hyperlipidemia, unspecified E78.5 Active 37479971 Problem Abnormal mammogram of right breast R92.8 Active 540642802 Problem Breast asymmetry N64.89 Active 161141775 Problem Moderately severe depression F32.2 Active 614533500 Problem Hypoglycemia associated with type 2 diabetes mellitus E11.649 Active 846250380 Problem Hypoglycemia E16.2 Active 786477385 Problem Cerebrovascular accident (CVA), unspecified mechanism I63.9 Active 514592874 Problem Essential hypertension I10 Active 03514130 Problem Cocaine abuse F14.10 Active 00661159 Problem Diabetic neuropathy E11.40 Active 229865001 Problem Stage 2 chronic kidney disease N18.2 Active 298512200 Problem Anxiety F41.9 Active 72201243 Problem Obstructive sleep apnea syndrome G47.33 Active 33303841 ALLERGIES No Information ENCOUNTERS Encounter Location Date Diagnosis [facility] [address] [id number] [place] [address] Sep Breast asymmetry N64.89 [facility] [place] [address] [id number] [place] [address] Sep [facility] [address] [id number] [place] [address] Sep Type 2 diabetes mellitus with hyperglycemia E11.65 ; Cocaine abuse F14.10 and Open wound of right great toe, subsequent encounter S91.101D [facility] [address] [id number] [place] [address] Sep [facility] [place] [address] [id number] [place] [address] Aug [facility] [place] [address] [id number] [place] [address] Aug [facility] [place] [address] [id number] [place] [address] Aug Type 2 diabetes mellitus with hyperglycemia E11.65 [facility] [place] [address] [id number] [place] [address] Aug [facility] [address] [facility] [address] [facility] [id number] [place] [address] Aug, [facility] [place] [address] [id number] [place] [address] Jul [facility] [place] [address] [id number] [place] [address] Jul Diabetic neuropathy E11.40 ; Essential hypertension I10 and Type 2 diabetes mellitus with hyperglycemia E11.65 [facility] [place] [address] [id number] [place] [address] Jul [facility] [place] [address] [id number] [place] [address] Jul [facility] [place] [address] [id number] [place] [address] Jul [facility] [place] [address] [id number] [place] [address] Jul [facility] [place] [address] [id number] [place] [address] Jul [facility] [place] [address] [id number] [place] [address] Jul Type 2 diabetes mellitus with hyperglycemia E11.65 ; Open wound of right great toe, subsequent encounter S91.101D ; Essential hypertension I10 and Diabetic neuropathy E11.[address] [facility] [address] [id number] [place] [id number] 05 Jul, 2017 [facility] [place] [address] [id number] [place] [address] Jun [facility] [place] [address] [id number] [place] [address] Jun Type 2 diabetes mellitus with hyperglycemia E11.65 [facility] [place] [address] [id number] [place] [address] Jun [facility] [place] [address] [id number] [place] [address] Jun [facility] [place] [address] [id number] [place] [address] 17 Jun Abnormal mammogram of right breast R92.8 and Breast asymmetry N64.89 [facility] [place] [address] [id number] [place] [address] 15 Jun [facility] [place] [address] [id number] [place] [address] Jun [facility] [place] [address] [id number] [place] [address] May Hypoglycemia E16.2 [facility] [place] [address] [id number] [place] [address] May Abnormal neurological exam R29.90 [facility] [place] [address] [id number] [place] [address] May [facility] [place] [address] [id number] [place] [address] May Type 2 diabetes mellitus with hyperglycemia E11.65 [facility] [place] [address] [id number] [place] [address] May Breast cancer screening Z12.31 and Hematuria, unspecified type R31.9 [facility] [place] [address] [id number] [place] [address] May [facility] [place] [address] [id number] [place] [address] May Type 2 diabetes mellitus with hyperglycemia E11.65 ; Essential hypertension I10 ; Moderately severe depression F32.2 and Confusion R41.0 [facility] [address] [id number] [place] [address] May, [facility] [place] [address] [id number] [place] [address] May Cerebrovascular accident (CVA), unspecified mechanism I63.9 ; Essential hypertension I10 ; Hyperlipidemia, unspecified E78.5 and Type 2 diabetes mellitus with hyperglycemia E11.65 [place] [address] [id number] [address] May, [place] [address]005[address]100[place], [place] [address] May, [facility] [place] [address] [id number] [place] [address] May [facility] [place] [address] [id number] [place] [address] May Diabetic neuropathy E11.40 and Diabetes E11.9 [facility] [place] [address] [id number] [place] [address] Apr [facility] [place] [address] [id number] [place] [address] Apr Subacute maxillary sinusitis J01.00 ; Hypoglycemia associated with type 2 diabetes mellitus E11.649 and Intractable episodic headache, unspecified headache type R51 [facility] [place] [address] [id number] [place] [address] Apr Diabetic neuropathy E11.40 and Anxiety F41.9 [facility] [place] [address] [id number] [place] [address] Apr [facility] [place] [address] [id number] [place] [address] Apr Type 2 diabetes mellitus with hyperglycemia E11.65 ; Subacute maxillary sinusitis J01.00 ; Diabetic neuropathy E11.40 and Sleep apnea in adult G47.30 [facility] [address] [facility] [address] [facility] [id number] [place] [address] Apr, [facility] [place] [address] [id number] [place] [address] 16 Apr [facility] [place] [address] [id number] [place] [address] Apr [facility] [place] [address] [id number] [place] [address] Apr Subacute maxillary sinusitis J01.00 [facility] [address]005[address]100[place], [place] [address] Apr, Right foot drop M21.371 [facility] [place] [address] [id number] [place] [address] Apr [facility] [place] [address] [id number] [place] [address] Mar [facility] [place] [address] [id number] [place] [address] Mar Essential hypertension I10 ; Type 2 diabetes mellitus with hyperglycemia E11.65 ; Encounter for immunization Z23 ; Cocaine abuse F14.10 and Hyperlipidemia, unspecified E78.5 [facility] [place] [address] [id number] [place] [address] Mar [place] [address]005[address]100[place], [place] [address] Mar, [facility] [place] [address] [id number] [place] [address] Feb [facility] [place] [address] [id number] [place] [address] Feb Type 2 diabetes mellitus with hyperglycemia E11.65 and Acute right ankle pain M25.571 [facility] [place] [address] [id number] [place] [address] Feb Weight loss R63.4 and Anxiety F41.9 [place] [address] [id number] [address] Jan, [facility] [id number] [place] [address] Jan, [facility] [id number] [place] [address] Jan, [facility] [address] [id number], [place] [address] Jan, Diabetes E11.9 [facility] [place] [address] [id number] [place] [address] Jan Sprain of right ankle, unspecified ligament, initial encounter S93.401A [facility] [place] [address] [id number] [place] [address] Jan Essential hypertension I10 ; Anxiety F41.9 and Type 2 diabetes mellitus with hyperglycemia E11.65 [facility] [address]00565100[place], [place] [address] Jan, Diabetes E11.9 [facility] [address] [place] [address] Jan, [facility] [address] [place] [address] Jan, [facility] [address] [id number] [place] [address] Jan [facility] [address] [place] [address] Jan, [facility] [address] [place] [address] Jan, [facility] [address] [place] [address] Jan, [facility] [address] [place] [address] Jan, [facility] [address] [place] [address] Jan, Unintentional weight loss R63.4 ; Stage 2 chronic kidney disease N18.2 ; Exposure to hepatitis C Z20.5 ; Diabetic neuropathy E11.40 ; Obstructive sleep apnea syndrome G47.33 ; Essential hypertension I10 and Type 2 diabetes mellitus with hyperglycemia E11.65 [facility] [address] [place] [address] Jan, [facility] [address]00565100[place], [place] [address] Jan, Type 2 diabetes mellitus with hyperglycemia E11.65 ; Diabetic neuropathy E11.40 and Essential hypertension I10 [facility] [address]005[address]100[place], [place] [address] Dec, Diabetes E11.9 [facility] [address] [place] [address] Dec, [facility] [address], [place] [address] Dec, [facility] [address] [place] [address] Dec, [facility] [address] [place] [address] Dec, Dental examination Z01.20 [facility] [address]005[address]100[place], [place] [address] Dec, [facility] [address] [place] [address] Dec, Diabetes E11.9 [facility] [address]00565100[place], [place] [address] Dec, Stage 2 chronic kidney disease N18.2 ; Exposure to hepatitis C Z20.5 ; Obstructive sleep apnea syndrome G47.33 and Type 2 diabetes mellitus with hyperglycemia E11.65 [facility] [address]00565100[place], [place] [address] Dec, [facility] [place] [address] [id number] [place] [address] Dec Diabetes E11.9 and Essential hypertension I10 [facility] [address], [place] [address] Nov, Diabetes E11.9 [facility] [address]100[place], [place] [address] Nov, Right foot pain M79.671 [facility] [place] [address] [id number] [place] [address] Nov, Right foot pain M79.671 [facility] [place] [address] [id number] [place] [address] Nov Diabetes E11.9 [facility] [place] [address] [id number] [place] [address] Nov Diabetes E11.9 [facility] [address] [facility] [id number] [place] [address] Nov, Dental examination Z01.20 [facility] [place] [address] [id number] [place] [address] Nov Diabetes E11.9 ; Cocaine abuse F14.10 and Shingles (herpes zoster) polyneuropathy B02.23 [facility] [place] [address] [id number] [place] [address] Nov [facility] [address] [facility] [address] [facility] [id number] [place] [address] October, [facility] [place] [address] [id number] [place] [address] October [facility] [place] [address] [id number] [place] [address] October Unintentional weight loss R63.4 [facility] [place] [address] [id number] [place] [address] October Abscess L02.91 [facility] [place] [address] [id number] [place] [address] October Diabetes E11.9 ; Unintentional weight loss R63.4 ; History of hematuria Z87.448 and Cocaine abuse F14.10 [facility] [place] [address] [id number] [place] [address] October Diabetes E11.9 [facility] [place] [address] [id number] [place] [address] October Essential hypertension I10 and Abscess L02.91 [facility] [place] [address] [id number] [place] [address] Jun [facility] [place] [address] [id number] [place] [address] May Breast cancer screening Z12.39 ; Diabetes E11.9 and Anxiety F41.9 [facility] [place] [address] [id number] [place] [address] May, Diabetes E11.9 [facility] [place] [address] [id number] [place] [address] 15 May Diabetes E11.9 and Anemia D64.9 [facility] [place] [address] [id number] [place] [address] 14 May Anxiety F41.9 [facility] [place] [address] [id number] [place] [address] May [facility] [place] [address] [id number] [place] [address] May Dysuria R30.0 [facility] [place] [address] [id number] [place] [address] 06 May [facility] [place] [address] [id number] [place] [address] 05 May Dysuria R30.0 and Vaginal itching L29.8 [facility] [address] [id number], [place] [address] Apr, [facility] [place] [address] [id number] [place] [address] Apr Diabetes E11.9 ; Dysuria R30.0 ; Diabetic neuropathy E11.40 ; Anemia D64.9 and Vaginal discharge N89.8 [facility] [address]100[place], [place] [address] Jun, [place] [id number] [id number] Jun, Anemia D64.9 ; Anxiety F41.9 ; Diabetes E11.9 and Diabetic neuropathy E11.40 [id number] [address] May, [facility] [id number] [place] [address] Apr, [id number] [place] [id number] Apr, Anemia D64.9 ; Anxiety F41.9 ; Diabetes E11.9 and Diabetic neuropathy E11.40 [address] [id number] [place] [id number] Mar, Acute costochondritis M94.[address] [id number] Mar, Bilateral low back pain without sciatica M54.5 and Bereavement Z63.[address] [id number] Mar, Obstructive chronic bronchitis with acute exacerbation J44.1 ; Herpes zoster without complication B02.9 and [place] N91.2 [id number] [place] [id number] Mar, [id number] [place] [id number] Mar, [address] [id number] [place] [id number] Feb, History of recent traumatic injury of head V15.52 ; Diabetes type 2, uncontrolled 250.02 and Visual disturbance 368.9 [address] [id number] [place] [id number] Feb, History of recent traumatic injury of head V15.52 ; Visual disturbance 368.9 and Diabetes type 2, uncontrolled 250.02 IMMUNIZATIONS No Known Immunizations SOCIAL HISTORY Never Assessed REASON FOR VISIT Phone call PLAN OF CARE VITAL SIGNS MEDICATIONS [...] infection 2004 Hospitalization History in rehab at [facility] 2017 Hospitalization History Stroke 05/2017 Hospitalization History surgeries Hospitalization History Elevated B/S 07/2017
--- OUTSIDE RECORDS SUMMARY | 2018-05-13 11:11 | XMS REPORT ---
Author Author CHRIS BECKWITH [facility] Address [address] [place] [address] Care Team Providers Care Highway Traffic Control Technician Name Role Phone CHRIS BECKWITH Unavailable PROBLEMS Type Condition ICD9-CM Code RUT05-FS Code Onset Dates Condition Status SNOMED Code Problem Type 2 diabetes mellitus with hyperglycemia E11.65 Active 837489435643062 Problem Sleep apnea in adult G47.30 Active 81197326 Problem Hyperlipidemia, unspecified E78.5 Active 60084872 Problem Abnormal mammogram of right breast R92.8 Active 406512339 Problem Breast asymmetry N64.89 Active 794697569 Problem Moderately severe depression F32.2 Active 424015926 Problem Hypoglycemia associated with type 2 diabetes mellitus E11.649 Active 207508461 Problem Hypoglycemia E16.2 Active 799199172 Problem Cerebrovascular accident (CVA), unspecified mechanism I63.9 Active 890183661 Problem Essential hypertension I10 Active 05187698 Problem Cocaine abuse F14.10 Active 99273969 Problem Diabetic neuropathy E11.40 Active 159436934 Problem Stage 2 chronic kidney disease N18.2 Active 158560098 Problem Anxiety F41.9 Active 19592883 Problem Obstructive sleep apnea syndrome G47.33 Active 31933567 ALLERGIES No Information ENCOUNTERS Encounter Location Date Diagnosis [facility] [address] [id number] [place] [address] October [facility] [address] [id number] [place] [address] October [facility] [id number] [address] October Type 2 diabetes mellitus with hyperglycemia E11.65 and Surgical procedure on lower extremity within past 6 months Z98.890 [facility] [id number] [address] October [facility] [place] [address] [id number] [place] [address] October [facility] [address] [facility] [id number] [place] [address] October, [facility] [place] [address] [id number] [place] [address] October Sleep apnea in adult G47.30 [facility] [place] [address] [id number] [place] [address] October Type 2 diabetes mellitus with hyperglycemia E11.65 [facility] [place] [address] [id number] [place] [address] Sep [facility] [place] [address] [id number] [place] [address] Sep Breast asymmetry N64.89 [facility] [place] [address] [id number] [place] [address] Sep [facility] [place] [address] [id number] [place] [address] Sep Type 2 diabetes mellitus with hyperglycemia E11.65 ; Cocaine abuse F14.10 and Open wound of right great toe, subsequent encounter S91.101D [facility] [place] [address] [id number] [place] [address] Sep [facility] [place] [address] [id number] [place] [address] Aug [facility] [place] [address] [id number] [place] [address] Aug [facility] [place] [address] [id number] [place] [address] Aug Type 2 diabetes mellitus with hyperglycemia E11.65 [facility] [place] [address] [id number] [place] [address] Aug [facility] [address] [facility] [id number] [place] [address] Aug, [facility] [place] [address] [id number] [place] [address] Jul [facility] [place] [address] [id number] [place] [address] Jul Diabetic neuropathy E11.40 ; Essential hypertension I10 and Type 2 diabetes mellitus with hyperglycemia E11.65 [facility] [place] [address] [id number] [place] [address] Jul [facility] [place] [address] [id number] [place] [address] Jul [facility] [place] [address] [id number] [place] [address] Jul [facility] [place] [address] [id number] [place] [address] Jul [facility] [place] [address] [id number] [place] [address] Jul [facility] [place] [address] [id number] [place] [address] Jul Type 2 diabetes mellitus with hyperglycemia E11.65 ; Open wound of right great toe, subsequent encounter S91.101D ; Essential hypertension I10 and Diabetic neuropathy E11.[address] [facility] [address] [id number] [place] [address] Jul, [facility] [place] [address] [id number] [place] [address] Jun [facility] [place] [address] [id number] [place] [address] Jun Type 2 diabetes mellitus with hyperglycemia E11.65 [facility] [place] [address] [id number] [place] [address] Jun [facility] [place] [address] [id number] [place] [address] Jun [facility] [place] [address] [id number] [place] [address] Jun Abnormal mammogram of right breast R92.8 and Breast asymmetry N64.89 [facility] [place] [address] [id number] [place] [address] Jun [facility] [place] [address] [id number] [place] [address] Jun [facility] [place] [address] [id number] [place] [address] May Hypoglycemia E16.2 [facility] [place] [address] [id number] [place] [address] May Abnormal neurological exam R29.90 [facility] [place] [address] [id number] [place] [address] May [facility] [place] [address] [id number] [place] [address] May Type 2 diabetes mellitus with hyperglycemia E11.65 [facility] [place] [address] [id number] [place] [address] May Breast cancer screening Z12.31 and Hematuria, unspecified type R31.9 [facility] [place] [address] [id number] [place] [address] May [facility] [place] [address] [id number] [place] [address] May Type 2 diabetes mellitus with hyperglycemia E11.65 ; Essential hypertension I10 ; Moderately severe depression F32.2 and Confusion R41.0 [place] [address] [id number] [place] [address] May, [facility] [place] [address] [id number] [place] [address] May Cerebrovascular accident (CVA), unspecified mechanism I63.9 ; Essential hypertension I10 ; Hyperlipidemia, unspecified E78.5 and Type 2 diabetes mellitus with hyperglycemia E11.65 [place] [address], [place] [address] May, [place] [address] [id number], [place] [address] May, [facility] [place] [address] [id number] [place] [address] May [facility] [place] [address] [id number] [place] [address] May Diabetic neuropathy E11.40 and Diabetes E11.9 [facility] [place] [address] [id number] [place] [address] Apr [facility] [place] [address] [id number] [place] [address] Apr Subacute maxillary sinusitis J01.00 ; Hypoglycemia associated with type 2 diabetes mellitus E11.649 and Intractable episodic headache, unspecified headache type R51 [facility] [place] [address] [id number] [place] [address] Apr Diabetic neuropathy E11.40 and Anxiety F41.9 [facility] [place] [address] [id number] [place] [address] Apr [facility] [place] [address] [id number] [place] [address] Apr Type 2 diabetes mellitus with hyperglycemia E11.65 ; Subacute maxillary sinusitis J01.00 ; Diabetic neuropathy E11.40 and Sleep apnea in adult G47.30 [facility] [address] [facility] [id number] [place] [address] Apr, [facility] [place] [address] [id number] [place] [address] Apr [facility] [place] [address] [id number] [place] [address] Apr [facility] [place] [address] [id number] [place] [address] Apr Subacute maxillary sinusitis J01.00 [facility] [address] [facility] [id number] [place] [address] Apr, Right foot drop M21.371 [facility] [place] [address] [id number] [place] [address] Apr [facility] [place] [address] [id number] [place] [address] Mar [facility] [place] [address] [id number] [place] [address] Mar Essential hypertension I10 ; Type 2 diabetes mellitus with hyperglycemia E11.65 ; Encounter for immunization Z23 ; Cocaine abuse F14.10 and Hyperlipidemia, unspecified E78.5 [facility] [place] [address] [id number] [place] [address] Mar [facility] [address], [place] [address] Mar, [facility] [place] [address] [id number] [place] [address] Feb [facility] [place] [address] [id number] [place] [address] Feb Type 2 diabetes mellitus with hyperglycemia E11.65 and Acute right ankle pain M25.571 [facility] [place] [address] [id number] [place] [address] Feb Weight loss R63.4 and Anxiety F41.9 [place] [id number] [place] [address] Jan, [facility] [id number] [place] [address] Jan, [facility] [id number] [place] [address] Jan, [facility] [id number] [place] [address] Jan, Diabetes E11.9 [facility] [place] [address] [id number] [place] [address] Jan Sprain of right ankle, unspecified ligament, initial encounter S93.401A [facility] [place] [address] [id number] [place] [address] Jan Essential hypertension I10 ; Anxiety F41.9 and Type 2 diabetes mellitus with hyperglycemia E11.65 [facility] [address] [place] [address] Jan, Diabetes E11.9 [facility] [id number] [place] [address] Jan, [facility] [address], [place] [address] Jan, [facility] [id number] [place] [address] Jan [facility] [address], [place] [address] Jan, [facility] [address], [place] [address] Jan, [facility] [address], [place] [address] Jan, [facility] [address] [place] [address] Jan, [facility] [address], [place] [address] Jan, Unintentional weight loss R63.4 ; Stage 2 chronic kidney disease N18.2 ; Exposure to hepatitis C Z20.5 ; Diabetic neuropathy E11.40 ; Obstructive sleep apnea syndrome G47.33 ; Essential hypertension I10 and Type 2 diabetes mellitus with hyperglycemia E11.65 [facility] [address], [place] [address] Jan, [facility] [address], [place] [address] Jan, Type 2 diabetes mellitus with hyperglycemia E11.65 ; Diabetic neuropathy E11.40 and Essential hypertension I10 [facility] [address], [place] [address] Dec, Diabetes E11.9 [facility] [address], [place] [address] Dec, [facility] [address], [place] [address] Dec, [facility] [address], [place] [address] Dec, [facility] [address], [place] [address] Dec, Dental examination Z01.20 [facility] [address], [place] [address] Dec, [facility] [address], [place] [address] Dec, Diabetes E11.9 [facility] [address] [place] [address] Dec, Stage 2 chronic kidney disease N18.2 ; Exposure to hepatitis C Z20.5 ; Obstructive sleep apnea syndrome G47.33 and Type 2 diabetes mellitus with hyperglycemia E11.65 [facility] [address], [place] [address] Dec, [facility] [address] [id number] [place] [address] Dec Diabetes E11.9 and Essential hypertension I10 [facility] [address], [place] [address] Nov, Diabetes E11.9 [facility] [address], [place] [address] Nov, Right foot pain M79.671 [facility] [id number] [address] Nov, Right foot pain M79.671 [facility] [address] [id number] [place] [address] Nov Diabetes E11.9 [facility] [address] [id number] [place] [address] Nov Diabetes E11.9 [facility] [address] [id number] [id number] 16 Nov, 2016 Dental examination Z01.20 [facility] [address] [id number] [place] [address] 09 Nov Diabetes E11.9 ; Cocaine abuse F14.10 and Shingles (herpes zoster) polyneuropathy B02.23 [facility] [place] [address] [id number] [place] [address] Nov [facility] [address] [facility] [id number] [place] [address] October, [facility] [place] [address] [id number] [place] [address] October [facility] [place] [address] [id number] [place] [address] October Unintentional weight loss R63.4 [facility] [place] [address] [id number] [place] [address] October Abscess L02.91 [facility] [place] [address] [id number] [place] [address] October Diabetes E11.9 ; Unintentional weight loss R63.4 ; History of hematuria Z87.448 and Cocaine abuse F14.10 [facility] [place] [address] [id number] [place] [address] October Diabetes E11.9 [facility] [place] [address] [id number] [place] [address] October Essential hypertension I10 and Abscess L02.91 [facility] [place] [address] [id number] [place] [address] Jun [facility] [place] [address] [id number] [place] [address] May Breast cancer screening Z12.39 ; Diabetes E11.9 and Anxiety F41.9 [facility] [address] [id number] [place] [address] May, Diabetes E11.9 [facility] [place] [address] [id number] [place] [address] May Diabetes E11.9 and Anemia D64.9 [facility] [place] [address] [id number] [place] [address] May Anxiety F41.9 [facility] [place] [address] [id number] [place] [address] 08 May [facility] [address] [id number] [place] [address] May Dysuria R30.0 [facility] [place] [address] [id number] [place] [address] May [facility] [address] [id number] [place] [address] May Dysuria R30.0 and Vaginal itching L29.8 [place] [address] [id number], [place] [address] Apr, [facility] [address] [id number] [place] [address] Apr Diabetes E11.9 ; Dysuria R30.0 ; Diabetic neuropathy E11.40 ; Anemia D64.9 and Vaginal discharge N89.8 [place] [address], [place] [address] Jun, [address] [place] [id number] Jun, Anemia D64.9 ; Anxiety F41.9 ; Diabetes E11.9 and Diabetic neuropathy E11.[address] [place] [id number] May, [place] [address]005[address], [place] [address] Apr, [address] [place] [id number] Apr, Anemia D64.9 ; Anxiety F41.9 ; Diabetes E11.9 and Diabetic neuropathy E11.40 [place] [id number] [place] [id number] Mar, Acute costochondritis M94.[address] [place] [id number] Mar, Bilateral low back pain without sciatica M54.5 and Bereavement Z63.[address]00565100[place] [id number] Mar, Obstructive chronic bronchitis with acute exacerbation J44.1 ; Herpes zoster without complication B02.9 and [employer] N91.[address]00565100[place] [id number] Mar, [address]005[address] [id number] Mar, [address]00565100[place] [id number] Feb, History of recent traumatic injury of head V15.52 ; Diabetes type 2, uncontrolled 250.02 and Visual disturbance 368.[address]00565100[place] [id number] Feb, History of recent traumatic injury of head V15.52 ; Visual disturbance 368.9 and Diabetes type 2, uncontrolled 250.02 IMMUNIZATIONS No Known Immunizations SOCIAL HISTORY Never Assessed REASON FOR VISIT Med refill PLAN OF CARE VITAL SIGNS MEDICATIONS Medication Instructions Dosage Frequency Start Date End Date Duration Status Neurontin 300 MG Orally Once a day 1 capsule 24h Jan, 30 day(s ) Active HydrOXYzine HCl 25 MG Orally 2 times a day as needed for anxieyt 1 tablet as needed Feb, 30 day(s) Active RESULTS No Results PROCEDURES No [...] infection 2005 Hospitalization History [facility] 2017 Hospitalization History Stroke 05/2017 Hospitalization History surgeries Hospitalization History Elevated B/S 07/2017 Hospitalization History [facility] - blood clot [facility] 10/2017
--- OUTSIDE RECORDS SUMMARY | 2018-05-13 11:11 | XMS REPORT ---
Author Author CHRIS BECKWITH [facility] Address [address] [place] [address] Care Team Providers Care Protection Specialist Name Role Phone CHRIS BECKWITH Unavailable PROBLEMS Type Condition ICD9-CM Code [id number] Code Onset Dates Condition Status SNOMED Code Problem Type 2 diabetes mellitus with hyperglycemia E11.65 Active 174600661755980 Problem Sleep apnea in adult G47.30 Active 00734235 Problem Hyperlipidemia, unspecified E78.5 Active 09291848 Problem Abnormal mammogram of right breast R92.8 Active 246504164 Problem Breast asymmetry N64.89 Active 411730749 Problem Moderately severe depression F32.2 Active 140143311 Problem Hypoglycemia associated with type 2 diabetes mellitus E11.649 Active 786589766 Problem Hypoglycemia E16.2 Active 739673766 Problem Cerebrovascular accident (CVA), unspecified mechanism I63.9 Active 258859709 Problem Essential hypertension I10 Active 28365208 Problem Cocaine abuse F14.10 Active 50182912 Problem Diabetic neuropathy E11.40 Active 063109214 Problem Stage 2 chronic kidney disease N18.2 Active 329441042 Problem Anxiety F41.9 Active 28520455 Problem Obstructive sleep apnea syndrome G47.33 Active 87148748 ALLERGIES Substance Reaction Event Type Date Status Phenergan nausea Drug Allergy May, Active Penicillin V Potassium nausea Drug Allergy May, Active Codeine Sulfate itch Drug Allergy May, Active ENCOUNTERS Encounter Location Date Diagnosis [facility] [address] [id number] [place] [address] Nov [facility] [address] [id number] [place] [address] Nov [facility] [address] [id number] [place] [address] Nov [facility] [address] [id number] [place] [address] October [facility] [place] [address] [id number] [place] [address] October [facility] [place] [address] [id number] [place] [address] October Type 2 diabetes mellitus with hyperglycemia E11.65 and Surgical procedure on lower extremity within past 6 months Z98.890 [facility] [place] [address] [id number] [place] [address] October [facility] [place] [address] [id number] [place] [address] October [facility] [address] [facility] [id number] [place] [address] October, [facility] [place] [address] [id number] [place] [address] October Sleep apnea in adult G47.30 [facility] [place] [address] [id number] [place] [address] October Type 2 diabetes mellitus with hyperglycemia E11.65 [facility] [place] [address] [id number] [place] [address] Sep [facility] [place] [address] [id number] [place] [address] Sep Breast asymmetry N64.89 [facility] [place] [address] [id number] [place] [address] Sep [facility] [place] [address] [id number] [place] [address] Sep Type 2 diabetes mellitus with hyperglycemia E11.65 ; Cocaine abuse F14.10 and Open wound of right great toe, subsequent encounter S91.101D [facility] [place] [address] [id number] [place] [address] Sep [facility] [place] [address] [id number] [place] [address] Aug [facility] [place] [address] [id number] [place] [address] Aug [facility] [place] [address] [id number] [place] [address] Aug Type 2 diabetes mellitus with hyperglycemia E11.65 [facility] [place] [address] [id number] [place] [address] Aug [facility] [address] [facility] [id number] [place] [address] Aug, [facility] [place] [address] [id number] [place] [address] Jul [facility] [place] [address] [id number] [place] [address] Jul Diabetic neuropathy E11.40 ; Essential hypertension I10 and Type 2 diabetes mellitus with hyperglycemia E11.65 [facility] [place] [address] [id number] [place] [address] Jul [facility] [place] [address] [id number] [place] [address] Jul [facility] [place] [address] [id number] [place] [address] Jul [facility] [place] [address] [id number] [place] [address] Jul [facility] [place] [address] [id number] [place] [address] Jul [facility] [place] [address] [id number] [place] [address] Jul Type 2 diabetes mellitus with hyperglycemia E11.65 ; Open wound of right great toe, subsequent encounter S91.101D ; Essential hypertension I10 and Diabetic neuropathy E11.[address] [facility] [place] [address] [id number] [place] [address] Jul, [facility] [place] [address] [id number] [place] [address] Jun [facility] [place] [address] [id number] [place] [address] Jun Type 2 diabetes mellitus with hyperglycemia E11.65 [facility] [place] [address] [id number] [place] [address] Jun [facility] [place] [address] [id number] [place] [address] Jun [facility] [place] [address] [id number] [place] [address] Jun Abnormal mammogram of right breast R92.8 and Breast asymmetry N64.89 [facility] [place] [address] [id number] [place] [address] Jun [facility] [place] [address] [id number] [place] [address] Jun [facility] [place] [address] [id number] [place] [address] May Hypoglycemia E16.2 [facility] [place] [address] [id number] [place] [address] May Abnormal neurological exam R29.90 [facility] [place] [address] [id number] [place] [address] May [facility] [place] [address] [id number] [place] [address] May Type 2 diabetes mellitus with hyperglycemia E11.65 [facility] [place] [address] [id number] [place] [address] May Breast cancer screening Z12.31 and Hematuria, unspecified type R31.9 [facility] [place] [address] [id number] [place] [address] May [facility] [place] [address] [id number] [place] [address] May Type 2 diabetes mellitus with hyperglycemia E11.65 ; Essential hypertension I10 ; Moderately severe depression F32.2 and Confusion R41.0 [facility] [address] [facility] [id number] [place] [address] May, [facility] [place] [address] [id number] [place] [address] May Cerebrovascular accident (CVA), unspecified mechanism I63.9 ; Essential hypertension I10 ; Hyperlipidemia, unspecified E78.5 and Type 2 diabetes mellitus with hyperglycemia E11.65 [place] [address] [facility] [id number] [place] [address] May, [place] [address] [facility] [id number] [place] [address] May, [facility] [place] [address] [id number] [place] [address] May [facility] [place] [address] [id number] [place] [address] May Diabetic neuropathy E11.40 and Diabetes E11.9 [facility] [place] [address] [id number] [place] [address] Apr [facility] [place] [address] [id number] [place] [address] Apr Subacute maxillary sinusitis J01.00 ; Hypoglycemia associated with type 2 diabetes mellitus E11.649 and Intractable episodic headache, unspecified headache type R51 [facility] [place] [address] [id number] [place] [address] Apr Diabetic neuropathy E11.40 and Anxiety F41.9 [facility] [place] [address] [id number] [place] [address] Apr [facility] [place] [address] [id number] [place] [address] Apr Type 2 diabetes mellitus with hyperglycemia E11.65 ; Subacute maxillary sinusitis J01.00 ; Diabetic neuropathy E11.40 and Sleep apnea in adult G47.30 [place] [address] [facility] [id number] [place] [address] Apr, [facility] [place] [address] [id number] [place] [address] Apr [facility] [place] [address] [id number] [place] [address] Apr [facility] [place] [address] [id number] [place] [address] Apr Subacute maxillary sinusitis J01.00 [place] [address], [place] [address] Apr, Right foot drop M21.371 [facility] [place] [address] [id number] [place] [address] Apr [facility] [place] [address] [id number] [place] [address] Mar [facility] [place] [address] [id number] [place] [address] Mar Essential hypertension I10 ; Type 2 diabetes mellitus with hyperglycemia E11.65 ; Encounter for immunization Z23 ; Cocaine abuse F14.10 and Hyperlipidemia, unspecified E78.5 [facility] [place] [address] [id number] [place] [address] Mar [place] [address], [place] [address] Mar, [facility] [place] [address] [id number] [place] [address] Feb [facility] [place] [address] [id number] [place] [address] Feb Type 2 diabetes mellitus with hyperglycemia E11.65 and Acute right ankle pain M25.571 [facility] [place] [address] [id number] [place] [address] Feb Weight loss R63.4 and Anxiety F41.9 [place] [address], [place] [address] Jan, [place] [address] [place] [id number] [place] [address] Jan, [place] [address] [place] [id number] [address] Jan, [place] [address], [place] [address] Jan, Diabetes E11.9 [facility] [place] [address] [id number] [place] [address] Jan Sprain of right ankle, unspecified ligament, initial encounter S93.401A [facility]NA [address] [id number] [place] [address] Jan Essential hypertension I10 ; Anxiety F41.9 and Type 2 diabetes mellitus with hyperglycemia E11.65 [facility] [address], [place] [address] Jan, Diabetes E11.9 [facility] [address] [place] [id number] [place] [address] Jan, [facility] [address] [place] [address] Jan, [facility] [address] [id number] [place] [address] Jan [facility] [address] [place] [id number] [place] [address] Jan, [facility] [address] [place] [id number] [place] [address] Jan, [facility] [address] [place] [address] Jan, [facility] [address] [place] [address] Jan, [facility] [address], [place] [address] Jan, Unintentional weight loss R63.4 ; Stage 2 chronic kidney disease N18.2 ; Exposure to hepatitis C Z20.5 ; Diabetic neuropathy E11.40 ; Obstructive sleep apnea syndrome G47.33 ; Essential hypertension I10 and Type 2 diabetes mellitus with hyperglycemia E11.65 [facility] [address] [place] [id number] [place] [address] Jan, [facility] [address], [place] [address] Jan, Type 2 diabetes mellitus with hyperglycemia E11.65 ; Diabetic neuropathy E11.40 and Essential hypertension I10 [facility] [address], [place] [address] Dec, Diabetes E11.9 [facility] [address], [place] [address] Dec, [facility] [address], [place] [address] Dec, [facility] [address] [place] [id number] [place] [address] Dec, [facility] [address] [place] [address] Dec, Dental examination Z01.20 [facility] [address] [place] [address] Dec, [facility] [address] [place] [address] Dec, Diabetes E11.9 [facility] [address], [place] [address] Dec, Stage 2 chronic kidney disease N18.2 ; Exposure to hepatitis C Z20.5 ; Obstructive sleep apnea syndrome G47.33 and Type 2 diabetes mellitus with hyperglycemia E11.65 [facility] [address], [place] [address] Dec, [facility] MAN [address] [id number] [place] [address] Dec Diabetes E11.9 and Essential hypertension I10 [facility] [address] [place] [id number], [place] [address] Nov, Diabetes E11.9 [facility] [address] [place] [id number], [place] [address] Nov, Right foot pain M79.671 [facility] [address] [id number] [address] Nov, Right foot pain M79.671 [facility] [place] [address] [id number] [place] [address] Nov Diabetes E11.9 [facility] [place] [address] [id number] [place] [address] Nov Diabetes E11.9 [facility] [address] [id number] [place] [address] 16 Nov, 2016 Dental examination Z01.20 [facility] [place] [address] [id number] [place] [address] 09 Nov Diabetes E11.9 ; Cocaine abuse F14.10 and Shingles (herpes zoster) polyneuropathy B02.23 [facility] [place] [address] [id number] [place] [address] Nov [facility] [address] [facility] [id number] [place] [address] October, [facility] [place] [address] [id number] [place] [address] October [facility] [place] [address] [id number] [place] [address] October Unintentional weight loss R63.4 [facility] [place] [address] [id number] [place] [address] October Abscess L02.91 [facility] [place] [address] [id number] [place] [address] October Diabetes E11.9 ; Unintentional weight loss R63.4 ; History of hematuria Z87.448 and Cocaine abuse F14.10 [facility] [place] [address] [id number] [place] [address] October Diabetes E11.9 [facility] [place] [address] [id number] [place] [address] October Essential hypertension I10 and Abscess L02.91 [facility] [place] [address] [id number] [place] [address] Jun [facility] [place] [address] [id number] [place] [address] May Breast cancer screening Z12.39 ; Diabetes E11.9 and Anxiety F41.9 [facility] [address] [facility] [id number] [place] [address] 16 May, 2016 Diabetes E11.9 [facility] [place] [address] [id number] [place] [address] 15 May Diabetes E11.9 and Anemia D64.9 [facility] [place] [address] [id number] [place] [address] 14 May Anxiety F41.9 [facility] [place] [address] [id number] [place] [address] 08 May [facility] [place] [address] [id number] [place] [address] May Dysuria R30.0 [facility] [place] [address] [id number] [place] [address] May [facility] [place] [address] [id number] [place] [address] May Dysuria R30.0 and Vaginal itching L29.8 [facility] [address] [place] [id number], [place] [address] Apr, [facility] [address] [id number] [place] [address] Apr Diabetes E11.9 ; Dysuria R30.0 ; Diabetic neuropathy E11.40 ; Anemia D64.9 and Vaginal discharge N89.8 [facility] [address], [place] [address] Jun, [place] [id number] [address] Jun, Anemia D64.9 ; Anxiety F41.9 ; Diabetes E11.9 and Diabetic neuropathy E11.40 [place] [id number] [address] May, [facility] [address] [place] [id number], [place] [address] Apr, [place] [id number] [id number] Apr, Anemia D64.9 ; Anxiety F41.9 ; Diabetes E11.9 and Diabetic neuropathy E11.40 [place] [address] [place] [id number] Mar, Acute costochondritis M94.0 [place] [address] [place] [id number] Mar, Bilateral low back pain without sciatica M54.5 and Bereavement Z63.4 [place] [address] [place] [id number] Mar, Obstructive chronic bronchitis with acute exacerbation J44.1 ; Herpes zoster without complication B02.9 and [place] N91.2 [place] [address] [place] [id number] Mar, [place] [address] [place] [id number] Mar, [place] [address] [place] [id number] Feb, History of recent traumatic injury of head V15.52 ; Diabetes type 2, uncontrolled 250.02 and Visual disturbance 368.[address] [id number] Feb, History of recent traumatic injury of head V15.52 ; Visual disturbance 368.9 and Diabetes type 2, uncontrolled 250.02 IMMUNIZATIONS No Known Immunizations SOCIAL HISTORY Never Assessed REASON FOR VISIT Hospital follow up, Pt was in the hospital for 4 days due to stroke. ROSA Garcia PLAN OF CARE Activity Details Follow Up 1 Week Reason:dm f/u, bp f/u VITAL SIGNS Height 63.50 in 2017-05-16 Weight 114 lbs 2017-05-16 Temperature 97.6 degrees Fahrenheit 2017-05-16 Heart Rate 120 bpm 2017-05-16 Respiratory Rate 18 2017-05-16 BMI 19.88 kg/m2 2017-05-16 Blood pressure systolic 142 mmHg 2017-05-16 Blood pressure diastolic 80 mmHg 2017-05-16 MEDICATIONS Medication Instructions Dosage Frequency Start Date End Date Duration Status Glucocard Expression Test - as directed Nov, Not- Taking Atorvastatin Calcium 20 mg Orally Once a day 1 tablet 24h May, Active Tresiba FlexTouch 100 UNIT/ML Subcutaneous at bedtime Inject 10 units Jan, Not-Taking Multi Complete Not-Taking Aspirin 81 MG Orally Once a day 1 tablet 24h May, Active Ropinirole HCl 1 MG Orally at bedtime 1 tablet 1 to 3 hours before bedtime 30 days Not-Taking Acetaminophen 325 MG Orally 2 times a day 1 capsules as needed May, 30 days Active Cephalexin 500 mg Orally every 12 hrs 1 capsule 12May, 07 days Active Lisinopril 20 mg Orally Once a day 1 tablet 24h May, 30 day(s) Not-Taking Lisinopril 20 MG Orally Once a day 1 tablet 24h Jan, Active Metformin HCl 850 MG Orally Twice a day 1 tablet with meals May, Active Fluticasone Propionate 50 MCG/ACT Nasally Once a day 1 spray in each nostril 24h 30 day(s) Not-Taking Glucocard Expression Test - subcutaneously 2 times a day as directed Nov, 30 days Active NovoLog Flexpen 100 UNIT/ML Subcutaneous 3 times a day 3 units 8h Jan, Not-Taking Glimepiride 4 MG Orally Once a day 1 tablet with breakfast or the first main meal of the day 24h Apr, Not-Taking Protonix 40 mg Orally Once a day 1 tablet 24h May, 30 day(s) Active HydrOXYzine HCl 25 MG Orally 2 times a day as needed for anxieyt 1 tablet as needed Feb, 30 day(s) Not-Taking Amlodipine Besylate 10 MG Orally Once a day 1 tablet 24h May, Active RESULTS No Results PROCEDURES No [...] infection 2005 Hospitalization History in [place] 2017 Hospitalization History Stroke 05/2017 Hospitalization History surgeries Hospitalization History Elevated B/S 07/2017 Hospitalization History [place] - blood clot [facility] 10/2017
--- OUTSIDE RECORDS SUMMARY | 2018-05-13 11:12 | XMS REPORT ---
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 Name Role Phone BARRETT SCHRADER Unavailable PROBLEMS Type Condition ICD9-CM Code ZYN12-NM Code Onset Dates Condition Status SNOMED Code Problem Type 2 diabetes mellitus with hyperglycemia E11.65 Active 727252824430934 Problem Sleep apnea in adult G47.30 Active 32121604 Problem Hyperlipidemia, unspecified E78.5 Active 55550149 Problem Abnormal mammogram of right breast R92.8 Active 139404265 Problem Breast asymmetry N64.89 Active 483318234 Problem Moderately severe depression F32.2 Active 701134396 Problem Hypoglycemia associated with type 2 diabetes mellitus E11.649 Active 420122863 Problem Hypoglycemia E16.2 Active 953886569 Problem Cerebrovascular accident (CVA), unspecified mechanism I63.9 Active 976589538 Problem Essential hypertension I10 Active 41685248 Problem Cocaine abuse F14.10 Active 43491633 Problem Diabetic neuropathy E11.40 Active 025977704 Problem Stage 2 chronic kidney disease N18.2 Active 087789966 Problem Anxiety F41.9 Active 29116321 Problem Obstructive sleep apnea syndrome G47.33 Active 00174759 ALLERGIES No Information ENCOUNTERS Encounter Location Date Diagnosis [facility] [address] [id number] [place] [address] Nov [facility] [address] [id number] [place] [address] Nov [facility] [address] [id number] [place] [address] Nov [facility] [address] [id number] [place] [address] October [facility] [address] [id number] [place] [address] October [facility] [place] [address] [id number] [place] [address] October Type 2 diabetes mellitus with hyperglycemia E11.65 and Surgical procedure on lower extremity within past 6 months Z98.890 [facility] [place] [address] [id number] [place] [address] October [facility] [place] [address] [id number] [place] [address] October [facility] [address] [facility] [id number] [place] [address] October, [facility] [place] [address] [id number] [place] [address] October Sleep apnea in adult G47.30 [facility] [place] [address] [id number] [place] [address] October Type 2 diabetes mellitus with hyperglycemia E11.65 [facility] [place] [address] [id number] [place] [address] Sep [facility] [place] [address] [id number] [place] [address] Sep Breast asymmetry N64.89 [facility] [place] [address] [id number] [place] [address] Sep [facility] [place] [address] [id number] [place] [address] Sep Type 2 diabetes mellitus with hyperglycemia E11.65 ; Cocaine abuse F14.10 and Open wound of right great toe, subsequent encounter S91.101D [facility] [place] [address] [id number] [place] [address] Sep [facility] [place] [address] [id number] [place] [address] Aug [facility] [place] [address] [id number] [place] [address] Aug [facility] [place] [address] [id number] [place] [address] Aug Type 2 diabetes mellitus with hyperglycemia E11.65 [facility] [place] [address] [id number] [place] [address] Aug [facility] [address] [facility] [id number] [place] [address] Aug, [facility] [place] [address] [id number] [place] [address] Jul [facility] [place] [address] [id number] [place] [address] Jul Diabetic neuropathy E11.40 ; Essential hypertension I10 and Type 2 diabetes mellitus with hyperglycemia E11.65 [facility] [place] [address] [id number] [place] [address] Jul [facility] [place] [address] [id number] [place] [address] Jul [facility] [place] [address] [id number] [place] [address] Jul [facility] [place] [address] [id number] [place] [address] Jul [facility] [place] [address] [id number] [place] [address] Jul [facility] [place] [address] [id number] [place] [address] Jul Type 2 diabetes mellitus with hyperglycemia E11.65 ; Open wound of right great toe, subsequent encounter S91.101D ; Essential hypertension I10 and Diabetic neuropathy E11.40 [facility] [address] [id number] [place] [address] Jul, [facility] [place] [address] [id number] [place] [address] Jun [facility] [place] [address] [id number] [place] [address] Jun Type 2 diabetes mellitus with hyperglycemia E11.65 [facility] [place] [address] [id number] [place] [address] Jun [facility] [place] [address] [id number] [place] [address] Jun [facility] [place] [address] [id number] [place] [address] Jun Abnormal mammogram of right breast R92.8 and Breast asymmetry N64.89 [facility] [place] [address] [id number] [place] [address] Jun [facility] [place] [address] [id number] [place] [address] Jun [facility] [place] [address] [id number] [place] [address] May Hypoglycemia E16.2 [facility] [place] [address] [id number] [place] [address] May Abnormal neurological exam R29.90 [facility] [place] [address] [id number] [place] [address] May [facility] [place] [address] [id number] [place] [address] May Type 2 diabetes mellitus with hyperglycemia E11.65 [facility] [place] [address] [id number] [place] [address] May Breast cancer screening Z12.31 and Hematuria, unspecified type R31.9 [facility] [place] [address] [id number] [place] [address] May [facility]ENTERJellyvisionGavin [place] [address] [id number] [place] [address] May Type 2 diabetes mellitus with hyperglycemia E11.65 ; Essential hypertension I10 ; Moderately severe depression F32.2 and Confusion R41.0 [place] [address] [address] May, [facility] [place] [address] [id number] [place] [address] May Cerebrovascular accident (CVA), unspecified mechanism I63.9 ; Essential hypertension I10 ; Hyperlipidemia, unspecified E78.5 and Type 2 diabetes mellitus with hyperglycemia E11.65 [place] [address] [address] May, [facility] [address] [facility] [id number] [place] [address] May, [facility] [place] [address] [id number] [place] [address] May [facility] [place] [address] [id number] [place] [address] May Diabetic neuropathy E11.40 and Diabetes E11.9 [facility] [place] [address] [id number] [place] [address] Apr [facility] [place] [address] [id number] [place] [address] Apr Subacute maxillary sinusitis J01.00 ; Hypoglycemia associated with type 2 diabetes mellitus E11.649 and Intractable episodic headache, unspecified headache type R51 [facility] [place] [address] [id number] [place] [address] Apr Diabetic neuropathy E11.40 and Anxiety F41.9 [facility] [place] [address] [id number] [place] [address] Apr [facility] [place] [address] [id number] [place] [address] Apr Type 2 diabetes mellitus with hyperglycemia E11.65 ; Subacute maxillary sinusitis J01.00 ; Diabetic neuropathy E11.40 and Sleep apnea in adult G47.30 [facility] [address] [facility] [id number] [place] [address] Apr, [facility] [place] [address] [id number] [place] [address] Apr [facility] [place] [address] [id number] [place] [address] Apr [facility] [place] [address] [id number] [place] [address] Apr Subacute maxillary sinusitis J01.00 [facility] [address] [facility] [id number] [place] [address] Apr, Right foot drop M21.371 [facility] [place] [address] [id number] [place] [address] Apr [facility] [place] [address] [id number] [place] [address] Mar [facility] [place] [address] [id number] [place] [address] Mar Essential hypertension I10 ; Type 2 diabetes mellitus with hyperglycemia E11.65 ; Encounter for immunization Z23 ; Cocaine abuse F14.10 and Hyperlipidemia, unspecified E78.5 [facility] [place] [address] [id number] [place] [address] Mar [place] [address] [address] Mar, [facility]SEG[facility] [place] [address] [id number] [place] [address] Feb [facility] [place] [address] [id number] [place] [address] Feb Type 2 diabetes mellitus with hyperglycemia E11.65 and Acute right ankle pain M25.571 [facility] [place] [address] [id number] [place] [address] Feb Weight loss R63.4 and Anxiety F41.9 [place] [address] [address] Jan, [place] [address] [address] Jan, [facility] [address] [id number] [address] Jan, [place] [address] [address] Jan, Diabetes E11.9 [facility] [place] [address] [id number] [place] [address] Jan Sprain of right ankle, unspecified ligament, initial encounter S93.401A [facility]SEG[facility] [place] [address] [id number] [place] [address] Jan Essential hypertension I10 ; Anxiety F41.9 and Type 2 diabetes mellitus with hyperglycemia E11.65 [facility] [address] [address] Jan, Diabetes E11.9 [facility] [address] [address] Jan, [facility] [address] [address] Jan, [address] [id number] [place] [address] Jan [facility] [address] [place] [address] Jan, [facility] [address] [address] Jan, [facility] [address] [address] Jan, [facility] [address] [address] Jan, [facility] [address] [address] Jan, Unintentional weight loss R63.4 ; Stage 2 chronic kidney disease N18.2 ; Exposure to hepatitis C Z20.5 ; Diabetic neuropathy E11.40 ; Obstructive sleep apnea syndrome G47.33 ; Essential hypertension I10 and Type 2 diabetes mellitus with hyperglycemia E11.65 [facility] [address] [address] Jan, [facility] [address] [address] Jan, Type 2 diabetes mellitus with hyperglycemia E11.65 ; Diabetic neuropathy E11.40 and Essential hypertension I10 [facility] [address] [address] Dec, Diabetes E11.9 [facility] [address] [address] Dec, [facility] [address] [address] Dec, [facility] [address] [address] Dec, [facility] [address] [address] Dec, Dental examination Z01.20 [facility] [address] [address] Dec, [facility] [address] [address] Dec, Diabetes E11.9 [place] [address] [address] Dec, Stage 2 chronic kidney disease N18.2 ; Exposure to hepatitis C Z20.5 ; Obstructive sleep apnea syndrome G47.33 and Type 2 diabetes mellitus with hyperglycemia E11.65 [facility] [address] [id number] [address] Dec, [facility] [address] [id number] [place] [address] Dec Diabetes E11.9 and Essential hypertension I10 [place] [address] [place] [id number] [address] Nov, Diabetes E11.9 [facility] [address] [id number] [address] Nov, Right foot pain M79.671 [facility] [address] [id number] [address] Nov, Right foot pain M79.671 [facility] [address] [id number] [place] [address] Nov Diabetes E11.9 [facility] [address] [id number] [place] [address] Nov Diabetes E11.9 [facility] [address] [id number] [place] [address] Nov, Dental examination Z01.20 [facility] [place] [address] [id number] [place] [address] 09 Nov Diabetes E11.9 ; Cocaine abuse F14.10 and Shingles (herpes zoster) polyneuropathy B02.23 [facility] [place] [address] [id number] [place] [address] Nov [facility] [address] [facility] [id number] [place] [address] October, [facility]ENTERJellyvisionK [place] [address] [id number] [place] [address] October [facility] [place] [address] [id number] [place] [address] October Unintentional weight loss R63.4 [facility] [place] [address] [id number] [place] [address] October Abscess L02.91 [facility] [place] [address] [id number] [place] [address] October Diabetes E11.9 ; Unintentional weight loss R63.4 ; History of hematuria Z87.448 and Cocaine abuse F14.10 [facility] [place] [address] [id number] [place] [address] October Diabetes E11.9 [facility] [place] [address] [id number] [place] [address] October Essential hypertension I10 and Abscess L02.91 [facility] [place] [address] [id number] [place] [address] Jun [facility] [place] [address] [id number] [place] [address] May Breast cancer screening Z12.39 ; Diabetes E11.9 and Anxiety F41.9 [facility] [address] [id number] [place] [address] May, Diabetes E11.9 [facility] [place] [address] [id number] [place] [address] 15 May Diabetes E11.9 and Anemia D64.9 [facility] [place] [address] [id number] [place] [address] 14 May Anxiety F41.9 [facility] [place] [address] [id number] [place] [address] 08 May [facility] [place] [address] [id number] [place] [address] May Dysuria R30.0 [facility] [place] [address] [id number] [place] [address] May [facility] [place] [address] [id number] [place] [address] May Dysuria R30.0 and Vaginal itching L29.8 [place] [address] [address] Apr, [facility] [place] [address] [id number] [place] [address] Apr Diabetes E11.9 ; Dysuria R30.0 ; Diabetic neuropathy E11.40 ; Anemia D64.9 and Vaginal discharge N89.8 [facility] [address] [address] Jun, [place] [id number] [address] Jun, Anemia D64.9 ; Anxiety F41.9 ; Diabetes E11.9 and Diabetic neuropathy E11.[address]005[address] [id number] May, [facility] [id number] [place] [address] Apr, [place] [id number] [address] Apr, Anemia D64.9 ; Anxiety F41.9 ; Diabetes E11.9 and Diabetic neuropathy E11.40 [address]00565[address] [address] Mar, Acute costochondritis M94.[address]00565[address] [address] Mar, Bilateral low back pain without sciatica M54.5 and Bereavement Z63.[address] [place] [id number] [place] [id number] Mar, Obstructive chronic bronchitis with acute exacerbation J44.1 ; Herpes zoster without complication B02.9 and [place] N91.[address] [place] [id number] [place] [id number] Mar, [place] [id number] [place] [id number] Mar, [place] [address] [address] Feb, History of recent traumatic injury of head V15.52 ; Diabetes type 2, uncontrolled 250.02 and Visual disturbance 368.[address] [id number] Feb, History of recent traumatic injury of head V15.52 ; Visual disturbance 368.9 and Diabetes type 2, uncontrolled 250.02 IMMUNIZATIONS No Known Immunizations SOCIAL HISTORY Never Assessed REASON FOR VISIT eye exam PLAN OF CARE VITAL SIGNS MEDICATIONS Unknown [...] infection 2005 Hospitalization History in rehab at [place] 2017 Hospitalization History Stroke 05/2017 Hospitalization History surgeries Hospitalization History Elevated B/S 07/2017 Hospitalization History [facility] - blood clot LRE 10/2017
--- OUTSIDE RECORDS SUMMARY | 2018-05-13 11:12 | XMS REPORT ---
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 Name Role Phone BARRETT SCHRADER Unavailable PROBLEMS Type Condition ICD9-CM Code UIB05-HI Code Onset Dates Condition Status SNOMED Code Problem Type 2 diabetes mellitus with hyperglycemia E11.65 Active 080468905161964 Problem Sleep apnea in adult G47.30 Active 56075227 Problem Hyperlipidemia, unspecified E78.5 Active 37686480 Problem Abnormal mammogram of right breast R92.8 Active 661948863 Problem Breast asymmetry N64.89 Active 927915714 Problem Moderately severe depression F32.2 Active 354492145 Problem Hypoglycemia associated with type 2 diabetes mellitus E11.649 Active 265005339 Problem Hypoglycemia E16.2 Active 252669106 Problem Cerebrovascular accident (CVA), unspecified mechanism I63.9 Active 372363806 Problem Essential hypertension I10 Active 89782271 Problem Cocaine abuse F14.10 Active 67308423 Problem Diabetic neuropathy E11.40 Active 830281226 Problem Stage 2 chronic kidney disease N18.2 Active 365061056 Problem Anxiety F41.9 Active 97707252 Problem Obstructive sleep apnea syndrome G47.33 Active 27869711 ALLERGIES No Information ENCOUNTERS Encounter Location Date Diagnosis [employer] MAN [address] [id number] [place] [address] Sep [facility] [address] [id number] [place] [address] Sep [facility] [place] [address] [id number] [place] [address] Aug [facility] [address] [id number] [place] [address] Aug [facility] [address] [id number] [place] [address] Aug Type 2 diabetes mellitus with hyperglycemia E11.65 [facility] [place] [address] [id number] [place] [address] Aug [facility] [address] [facility] [id number] [place] [address] Aug, [facility] [place] [address] [id number] [place] [address] Jul [facility] [place] [address] [id number] [place] [address] Jul Diabetic neuropathy E11.40 ; Essential hypertension I10 and Type 2 diabetes mellitus with hyperglycemia E11.65 [facility] [place] [address] [id number] [place] [address] Jul [facility] [place] [address] [id number] [place] [address] Jul [facility] [place] [address] [id number] [place] [address] Jul [facility] [place] [address] [id number] [place] [address] Jul [facility] [place] [address] [id number] [place] [address] Jul [facility] [place] [address] [id number] [place] [address] Jul Type 2 diabetes mellitus with hyperglycemia E11.65 ; Open wound of right great toe, subsequent encounter S91.101D ; Essential hypertension I10 and Diabetic neuropathy E11.[address] [facility] [address] [id number] [place] [address] Jul, [facility] [place] [address] [id number] [place] [address] Jun [facility] [place] [address] [id number] [place] [address] Jun Type 2 diabetes mellitus with hyperglycemia E11.65 [facility] [place] [address] [id number] [place] [address] Jun [facility] [place] [address] [id number] [place] [address] Jun [facility] [place] [address] [id number] [place] [address] Jun Abnormal mammogram of right breast R92.8 and Breast asymmetry N64.89 [facility] [place] [address] [id number] [place] [address] Jun [facility] [place] [address] [id number] [place] [address] Jun [facility] [place] [address] [id number] [place] [address] May Hypoglycemia E16.2 [facility] [place] [address] [id number] [place] [address] May Abnormal neurological exam R29.90 [facility] [place] [address] [id number] [place] [address] May [facility] [place] [address] [id number] [place] [address] May Type 2 diabetes mellitus with hyperglycemia E11.65 [facility] [place] [address] [id number] [place] [address] May Breast cancer screening Z12.31 and Hematuria, unspecified type R31.9 [facility] [place] [address] [id number] [place] [address] May [facility] [place] [address] [id number] [place] [address] May Type 2 diabetes mellitus with hyperglycemia E11.65 ; Essential hypertension I10 ; Moderately severe depression F32.2 and Confusion R41.0 [place] [address] [id number] [address] May, [facility] [place] [address] [id number] [place] [address] 08 May Cerebrovascular accident (CVA), unspecified mechanism I63.9 ; Essential hypertension I10 ; Hyperlipidemia, unspecified E78.5 and Type 2 diabetes mellitus with hyperglycemia E11.65 [place] [address] [facility] [id number] [place] [address] May, [facility] [address] [facility] [id number] [place] [address] May, [facility] [place] [address] [id number] [place] [address] May [facility] [place] [address] [id number] [place] [address] May Diabetic neuropathy E11.40 and Diabetes E11.9 [facility] [place] [address] [id number] [place] [address] Apr [facility] [place] [address] [id number] [place] [address] Apr Subacute maxillary sinusitis J01.00 ; Hypoglycemia associated with type 2 diabetes mellitus E11.649 and Intractable episodic headache, unspecified headache type R51 [facility] [place] [address] [id number] [place] [address] Apr Diabetic neuropathy E11.40 and Anxiety F41.9 [facility] [place] [address] [id number] [place] [address] Apr [facility] [place] [address] [id number] [place] [address] Apr Type 2 diabetes mellitus with hyperglycemia E11.65 ; Subacute maxillary sinusitis J01.00 ; Diabetic neuropathy E11.40 and Sleep apnea in adult G47.30 [place] [address] [facility] [id number] [place] [address] Apr, [facility] [place] [address] [id number] [place] [address] Apr [facility] [place] [address] [id number] [place] [address] Apr [facility] [place] [address] [id number] [place] [address] Apr Subacute maxillary sinusitis J01.00 [place] [address] [facility] [id number] [place] [address] Apr, Right foot drop M21.371 [facility] [place] [address] [id number] [place] [address] Apr [facility] [place] [address] [id number] [place] [address] Mar [facility] [place] [address] [id number] [place] [address] Mar Essential hypertension I10 ; Type 2 diabetes mellitus with hyperglycemia E11.65 ; Encounter for immunization Z23 ; Cocaine abuse F14.10 and Hyperlipidemia, unspecified E78.5 [facility] [place] [address] [id number] [place] [address] Mar [place] [id number] [place] [address] Mar, [facility]ERS[facility] [place] [address] [id number] [place] [address] Feb [facility] [place] [address] [id number] [place] [address] Feb Type 2 diabetes mellitus with hyperglycemia E11.65 and Acute right ankle pain M25.571 [facility] [place] [address] [id number] [place] [address] Feb Weight loss R63.4 and Anxiety F41.9 [place] [address] [address] Jan, [place] [id number] [place] [address] Jan, [facility] [address] [place] [address] Jan, [place] [id number] [place] [address] Jan, Diabetes E11.9 [facility] [place] [address] [id number] [place] [address] Jan Sprain of right ankle, unspecified ligament, initial encounter S93.401A [facility] [place] [address] [id number] [place] [address] Jan Essential hypertension I10 ; Anxiety F41.9 and Type 2 diabetes mellitus with hyperglycemia E11.65 [facility] [address] [place] [address] Jan, Diabetes E11.9 [facility] [id number] [place] [address] Jan, [facility] [address] [place] [address] Jan, [facility] Minerva LOZANOE [id number] [place] [address] Jan [facility] [address] [place] [address] Jan, [facility] [address] [place] [address] Jan, [facility] [address] [place] [address] Jan, [facility] [address] [place] [address] Jan, [facility] [address] [place] [address] Jan, Unintentional weight loss R63.4 ; Stage 2 chronic kidney disease N18.2 ; Exposure to hepatitis C Z20.5 ; Diabetic neuropathy E11.40 ; Obstructive sleep apnea syndrome G47.33 ; Essential hypertension I10 and Type 2 diabetes mellitus with hyperglycemia E11.65 [facility] [address], [place] [address] Jan, [facility] [address] [place] [address] Jan, Type 2 diabetes mellitus with hyperglycemia E11.65 ; Diabetic neuropathy E11.40 and Essential hypertension I10 [facility] [address] [place] [address] Dec, Diabetes E11.9 [facility] [address] [id number], [place] [address] Dec, [facility] [address], [place] [address] Dec, [facility] [address], [place] [address] Dec, [facility] [address], [place] [address] Dec, Dental examination Z01.20 [facility] [address], [place] [address] Dec, [facility] [address], [place] [address] Dec, Diabetes E11.9 [facility] [address], [place] [address] Dec, Stage 2 chronic kidney disease N18.2 ; Exposure to hepatitis C Z20.5 ; Obstructive sleep apnea syndrome G47.33 and Type 2 diabetes mellitus with hyperglycemia E11.65 [facility] [address], [place] [address] Dec, [facility] MAN [address] [id number] [place] [address] Dec Diabetes E11.9 and Essential hypertension I10 [facility] [address] [id number], [place] [address] Nov, Diabetes E11.9 [facility] [address] [id number], [place] [address] Nov, Right foot pain M79.671 [facility] [address] [id number] [address] Nov, Right foot pain M79.671 [facility] MAN [address] [id number] [place] [address] Nov Diabetes E11.9 [facility] [address] [id number] [place] [address] Nov Diabetes E11.9 [facility] [address] [id number] [place] [address] Nov, Dental examination Z01.20 [facility] [address] [id number] [place] [address] 09 Nov Diabetes E11.9 ; Cocaine abuse F14.10 and Shingles (herpes zoster) polyneuropathy B02.23 [facility] [place] [address] [id number] [place] [address] Nov [facility] [address] [facility] [id number] [place] [address] October, [facility] [place] [address] [id number] [place] [address] October [facility] [place] [address] [id number] [place] [address] October Unintentional weight loss R63.4 [facility] [place] [address] [id number] [place] [address] October Abscess L02.91 [facility] [place] [address] [id number] [place] [address] October Diabetes E11.9 ; Unintentional weight loss R63.4 ; History of hematuria Z87.448 and Cocaine abuse F14.10 [facility] [place] [address] [id number] [place] [address] October Diabetes E11.9 [facility] [place] [address] [id number] [place] [address] October Essential hypertension I10 and Abscess L02.91 [facility] [place] [address] [id number] [place] [address] Jun [facility] [place] [address] [id number] [place] [address] May Breast cancer screening Z12.39 ; Diabetes E11.9 and Anxiety F41.9 [facility] [place] [address] [facility] [id number] [place] [address] May, Diabetes E11.9 [facility] [place] [address] [id number] [place] [address] 15 May Diabetes E11.9 and Anemia D64.9 [facility] [place] [address] [id number] [place] [address] 14 May Anxiety F41.9 [facility] [place] [address] [id number] [place] [address] May [facility] [place] [address] [id number] [place] [address] May Dysuria R30.0 [facility] [place] [address] [id number] [place] [address] May [facility] [place] [address] [id number] [place] [address] May Dysuria R30.0 and Vaginal itching L29.8 [facility] [id number] [place] [address] Apr, [facility] [place] [address] [id number] [place] [address] Apr Diabetes E11.9 ; Dysuria R30.0 ; Diabetic neuropathy E11.40 ; Anemia D64.9 and Vaginal discharge N89.8 [facility] [address] [place] [address] Jun, [address]00565100[place] [address] Jun, Anemia D64.9 ; Anxiety F41.9 ; Diabetes E11.9 and Diabetic neuropathy E11.40 [address] [place] [id number] [place] [id number] May, [facility] [address] [place] [address] Apr, [address]00565100[place] [id number] Apr, Anemia D64.9 ; Anxiety F41.9 ; Diabetes E11.9 and Diabetic neuropathy E11.[address] [place] [id number] Mar, Acute costochondritis M94.0 [place] [address] [place] [id number] Mar, Bilateral low back pain without sciatica M54.5 and Bereavement Z63.4 [place] [address] [place] [id number] 14 Mar, 2015 Obstructive chronic bronchitis with acute exacerbation J44.1 ; Herpes zoster without complication B02.9 and Frederick N91.2 [address] [place] [address] [place] [id number] Mar, [place] [address] [place] [id number] Mar, [place] [address] [place] [id number] Feb, History of recent traumatic injury of head V15.52 ; Diabetes type 2, uncontrolled 250.02 and Visual disturbance 368.9 [address]65[address] [address] Feb, History of recent traumatic injury of head V15.52 ; Visual disturbance 368.9 and Diabetes type 2, uncontrolled 250.02 IMMUNIZATIONS No Known Immunizations SOCIAL HISTORY Never Assessed REASON FOR VISIT Medication refill request PLAN OF CARE VITAL SIGNS MEDICATIONS Medication Instructions Dosage Frequency Start Date End Date Duration Status Ibuprofen 800 MG Orally Three times a day 1 tablet with food or milk 8h Dec, 20 days Active RESULTS No Results PROCEDURES No [...] infection 2004 Hospitalization History in rehab at [facility] 2016 Hospitalization History Stroke 05/2017 Hospitalization History surgeries Hospitalization History Elevated B/S 07/2017
--- OUTSIDE RECORDS SUMMARY | 2018-05-13 11:13 | XMS REPORT ---
Author Author CHRIS BECKWITH [facility] [place] Address [address] [place] [address] Care Team Providers Care Sales Mgr Name Role Phone CHRIS BECKWITH Unavailable PROBLEMS Type Condition ICD9-CM Code FFM44-BX Code Onset Dates Condition Status SNOMED Code Problem Anxiety F41.9 Active 61771008 Problem Diabetic neuropathy E11.40 Active 186124082 Problem Hyperlipidemia, unspecified E78.5 Active 08326593 Problem Type 2 diabetes mellitus with hyperglycemia E11.65 Active 928283721131433 Problem Cocaine abuse F14.10 Active 76267148 Problem Essential hypertension I10 Active 19955968 Problem Obstructive sleep apnea syndrome G47.33 Active 67867261 Problem Stage 2 chronic kidney disease N18.2 Active 822420768 ALLERGIES Substance Reaction Event Type Date Status Phenergan nausea Drug Allergy October, Active Penicillin V Potassium nausea Drug Allergy October, Active SOCIAL HISTORY Never Assessed PLAN OF CARE Activity Details Follow Up 1 Week Reason:diabetes f/u VITAL SIGNS Height 63.50 in 2016-10-09 Weight 114.7 lbs 2016-10-09 Temperature 97.7 degrees Fahrenheit 2016-10-09 Heart Rate 88 bpm 2016-10-09 Respiratory Rate 18 2016-10-09 BMI 20.00 kg/m2 2016-10-09 Blood pressure systolic 150 mmHg 2016-10-09 Blood pressure diastolic 88 mmHg 2016-10-09 MEDICATIONS Medication Instructions Dosage Frequency Start Date End Date Duration Status Lyrica 100 MG Orally Twice a day 1 capsule 12h Active MetFORMIN HCl ER 500 MG Orally 2 times a day 2 tablet 12h 14 Apr, 2016 30 day(s) Active Ropinirole HCl 1 MG 1 tablet 1 to 3 hours before bedtime 30 days Active Lisinopril 10 mg Orally Once a day 1 tablet 24h 30 days Active Lantus 100 UNIT/ML Subcutaneous Once a day at night 15 units Active Pen Horton 31G X 6 MM as directed 24h Apr, 30 days Active Simvastatin 40 MG Orally Once a day 1 tablet in the evening 24h Active Paxil 20 mg Orally Once a day 1 tablet in the morning 24h May, Active Bactrim DS 800-160 MG Orally Twice a day 1 tablet 12h October,October 10 day(s) Active RESULTS Name Result Date Reference Range CULTURE, ANAEROBIC AND AEROBIC 2016-10-09 Anaerobic Culture Final report Aerobic Culture Final report Result 1 Result 1 Antimicrobial Susceptibility PROCEDURES Procedure Date Ordered Result Body Site CULTURE BACTERIA ANAEROBIC October 09, 2016 CULTURE, BACTERIA, OTHER October 09, 2016 IMMUNIZATIONS No Known Immunizations MEDICAL (GENERAL) HISTORY Type Description Date Medical History Diabetes Medical History hypertension Medical History hyperlipidemia Medical History neuropathy Surgical History Hysterectomy 1998 Surgical History cyst on left breast removed Hospitalization History high blood glucose and kidney infection 2004 Hospitalization History in rehab at [place] [address]
--- OUTSIDE RECORDS SUMMARY | 2018-05-13 11:13 | XMS REPORT ---
Author Author BARRETT SCHRADER [facility] Address [address] [place] [address] Care Team Providers Care Geropsychologist Name Role Phone BARRETT SCHRADER Unavailable PROBLEMS Type Condition ICD9-CM Code UWC31-ZI Code Onset Dates Condition Status SNOMED Code Problem Type 2 diabetes mellitus with hyperglycemia E11.65 Active 141689121159381 Problem Sleep apnea in adult G47.30 Active 53503335 Problem Hyperlipidemia, unspecified E78.5 Active 77730481 Problem Abnormal mammogram of right breast R92.8 Active 485828906 Problem Breast asymmetry N64.89 Active 092672888 Problem Moderately severe depression F32.2 Active 213227795 Problem Hypoglycemia associated with type 2 diabetes mellitus E11.649 Active 603577564 Problem Hypoglycemia E16.2 Active 542524757 Problem Cerebrovascular accident (CVA), unspecified mechanism I63.9 Active 669842281 Problem Essential hypertension I10 Active 05385651 Problem Cocaine abuse F14.10 Active 70661379 Problem Diabetic neuropathy E11.40 Active 146111101 Problem Stage 2 chronic kidney disease N18.2 Active 127245582 Problem Anxiety F41.9 Active 93632035 Problem Obstructive sleep apnea syndrome G47.33 Active 10256520 ALLERGIES No Information ENCOUNTERS Encounter Location Date Diagnosis [facility] [address] [id number] [place] [address] Sep [facility] [address] [id number] [place] [address] Aug [facility] [place] [address] [id number] [place] [address] Aug [facility] [place] [address] [id number] [place] [address] Aug Type 2 diabetes mellitus with hyperglycemia E11.65 [facility] [place] [address] [id number] [place] [address] Aug [facility] [address] [facility] [id number] [place] [address] Aug, [facility] [place] [address] [id number] [place] [address] Jul [facility] [place] [address] [id number] [place] [address] Jul Diabetic neuropathy E11.40 ; Essential hypertension I10 and Type 2 diabetes mellitus with hyperglycemia E11.65 [facility] [place] [address] [id number] [place] [address] Jul [facility] [place] [address] [id number] [place] [address] Jul [facility] [place] [address] [id number] [place] [address] Jul [facility] [place] [address] [id number] [place] [address] Jul [facility] [place] [address] [id number] [place] [address] Jul [facility] [place] [address] [id number] [place] [address] Jul Type 2 diabetes mellitus with hyperglycemia E11.65 ; Open wound of right great toe, subsequent encounter S91.101D ; Essential hypertension I10 and Diabetic neuropathy E11.40 [facility] [address] [id number] [place] [id number] Jul, [facility] [place] [address] [id number] [place] [address] Jun [facility] [place] [address] [id number] [place] [address] Jun Type 2 diabetes mellitus with hyperglycemia E11.65 [facility] [place] [address] [id number] [place] [address] Jun [facility] [place] [address] [id number] [place] [address] Jun [facility] [place] [address] [id number] [place] [address] 17 Jun Abnormal mammogram of right breast R92.8 and Breast asymmetry N64.89 [facility] [place] [address] [id number] [place] [address] 15 Jun [facility] [place] [address] [id number] [place] [address] 08 Jun [facility] [place] [address] [id number] [place] [address] May Hypoglycemia E16.2 [facility] [place] [address] [id number] [place] [address] May Abnormal neurological exam R29.90 [facility] [place] [address] [id number] [place] [address] May [facility] [place] [address] [id number] [place] [address] May Type 2 diabetes mellitus with hyperglycemia E11.65 [facility] [place] [address] [id number] [place] [address] May Breast cancer screening Z12.31 and Hematuria, unspecified type R31.9 [facility] [place] [address] [id number] [place] [address] May [facility] [place] [address] [id number] [place] [address] 14 May Type 2 diabetes mellitus with hyperglycemia E11.65 ; Essential hypertension I10 ; Moderately severe depression F32.2 and Confusion R41.0 [address] [address] [address] May, [facility] [place] [address] [id number] [place] [address] May Cerebrovascular accident (CVA), unspecified mechanism I63.9 ; Essential hypertension I10 ; Hyperlipidemia, unspecified E78.5 and Type 2 diabetes mellitus with hyperglycemia E11.65 [place] [address] [address] 07 May, 2017 [place] [address] [facility] [id number] [place] [address] May, [facility] [place] [address] [id number] [place] [address] May [facility] [place] [address] [id number] [place] [address] May Diabetic neuropathy E11.40 and Diabetes E11.9 [facility] [place] [address] [id number] [place] [address] Apr [facility] [place] [address] [id number] [place] [address] Apr Subacute maxillary sinusitis J01.00 ; Hypoglycemia associated with type 2 diabetes mellitus E11.649 and Intractable episodic headache, unspecified headache type R51 [facility] [place] [address] [id number] [place] [address] Apr Diabetic neuropathy E11.40 and Anxiety F41.9 [facility] [place] [address] [id number] [place] [address] Apr [facility] [place] [address] [id number] [place] [address] Apr Type 2 diabetes mellitus with hyperglycemia E11.65 ; Subacute maxillary sinusitis J01.00 ; Diabetic neuropathy E11.40 and Sleep apnea in adult G47.30 [place] [address] [facility] [id number] [place] [address] Apr, [facility] [place] [address] [id number] [place] [address] Apr [facility] [place] [address] [id number] [place] [address] Apr [facility] [place] [address] [id number] [place] [address] Apr Subacute maxillary sinusitis J01.00 [place] [address] [facility] [id number] [place] [address] Apr, Right foot drop M21.371 [facility] [place] [address] [id number] [place] [address] Apr [facility] [place] [address] [id number] [place] [address] Mar [facility] [address] [id number] [place] [address] Mar Essential hypertension I10 ; Type 2 diabetes mellitus with hyperglycemia E11.65 ; Encounter for immunization Z23 ; Cocaine abuse F14.10 and Hyperlipidemia, unspecified E78.5 [facility] [place] [address] [id number] [place] [address] Mar [facility] [address] [address] Mar, [facility] [address] [id number] [place] [address] Feb [facility] [place] [address] [id number] [place] [address] Feb Type 2 diabetes mellitus with hyperglycemia E11.65 and Acute right ankle pain M25.571 [facility] [place] [address] [id number] [place] [address] Feb Weight loss R63.4 and Anxiety F41.9 [place] [id number] [place] [address] Jan, [facility] [id number] [place] [address] Jan, [facility] [id number] [place] [address] Jan, [place] [address] [place] [address] Jan, Diabetes E11.9 [facility] [place] [address] [id number] [place] [address] Jan Sprain of right ankle, unspecified ligament, initial encounter S93.401A [facility] [address] [id number] [place] [address] Jan Essential hypertension I10 ; Anxiety F41.9 and Type 2 diabetes mellitus with hyperglycemia E11.65 [facility] [address] [facility] [id number] [address] Jan, Diabetes E11.9 [facility] [address] [address] Jan, [facility] [address] [address] Jan, [address] [id number] [place] [address] Jan [facility] [address]100[place] [address] Jan, [facility] [address] [address] Jan, [facility] [address] [address] Jan, [facility] [address]100[place] [address] Jan, [facility] [address] [address] Jan, Unintentional weight loss R63.4 ; Stage 2 chronic kidney disease N18.2 ; Exposure to hepatitis C Z20.5 ; Diabetic neuropathy E11.40 ; Obstructive sleep apnea syndrome G47.33 ; Essential hypertension I10 and Type 2 diabetes mellitus with hyperglycemia E11.65 [facility] [address] [id number] [address] Jan, [facility] [address] [facility] [id number] [address] Jan, Type 2 diabetes mellitus with hyperglycemia E11.65 ; Diabetic neuropathy E11.40 and Essential hypertension I10 [facility] [address] [id number] [address] Dec, Diabetes E11.9 [facility] [address] [id number] [address] Dec, [facility] [address] [address] Dec, [facility] [address]100[place] [address] Dec, [facility] [address] [address] Dec, Dental examination Z01.20 [facility] [address] [address] Dec, [facility] [address] [address] Dec, Diabetes E11.9 [facility] [address]005[address]100[place] [address] Dec, Stage 2 chronic kidney disease N18.2 ; Exposure to hepatitis C Z20.5 ; Obstructive sleep apnea syndrome G47.33 and Type 2 diabetes mellitus with hyperglycemia E11.65 [facility] [address] [address] Dec, [facility] MAN [address] [id number] [place] [address] Dec Diabetes E11.9 and Essential hypertension I10 [facility] [address] [address] Nov, Diabetes E11.9 [facility] [address] [address] Nov, Right foot pain M79.671 [facility] [address] [id number] [address] Nov, Right foot pain M79.671 [facility] MAN [address] [id number] [place] [address] Nov Diabetes E11.9 [facility] MAN [address] [id number] [place] [address] Nov Diabetes E11.9 [facility] [id number] [address] 16 Nov, 2016 Dental examination Z01.20 [facility] [place] [address] [id number] [place] [address] 09 Nov Diabetes E11.9 ; Cocaine abuse F14.10 and Shingles (herpes zoster) polyneuropathy B02.23 [facility] [place] [address] [id number] [place] [address] Nov [facility] [address] [facility] [id number] [place] [address] October, [facility] [place] [address] [id number] [place] [address] October [facility] [place] [address] [id number] [place] [address] October Unintentional weight loss R63.4 [facility] [place] [address] [id number] [place] [address] October Abscess L02.91 [facility] [place] [address] [id number] [place] [address] October Diabetes E11.9 ; Unintentional weight loss R63.4 ; History of hematuria Z87.448 and Cocaine abuse F14.10 [facility] [place] [address] [id number] [place] [address] October Diabetes E11.9 [facility] [place] [address] [id number] [place] [address] October Essential hypertension I10 and Abscess L02.91 [facility] [place] [address] [id number] [place] [address] Jun [facility] [place] [address] [id number] [place] [address] May Breast cancer screening Z12.39 ; Diabetes E11.9 and Anxiety F41.9 [facility] [address] [id number] [place] [address] May, Diabetes E11.9 [facility] [place] [address] [id number] [place] [address] 15 May Diabetes E11.9 and Anemia D64.9 [facility] [place] [address] [id number] [place] [address] 14 May Anxiety F41.9 [facility] [place] [address] [id number] [place] [address] 08 May [facility] [place] [address] [id number] [place] [address] May Dysuria R30.0 [facility] [place] [address] [id number] [place] [address] May [facility] [place] [address] [id number] [place] [address] May Dysuria R30.0 and Vaginal itching L29.8 [place] [address]005[address] [address] Apr, [facility] [place] [address] [id number] [place] [address] Apr Diabetes E11.9 ; Dysuria R30.0 ; Diabetic neuropathy E11.40 ; Anemia D64.9 and Vaginal discharge N89.8 [facility] [id number] [place] [address] Jun, [address]005[address]100[place] [address] Jun, Anemia D64.9 ; Anxiety F41.9 ; Diabetes E11.9 and Diabetic neuropathy E11.[address]00565100[place] [address] May, [facility] [id number] [place] [address] Apr, [place] [address] [address] Apr, Anemia D64.9 ; Anxiety F41.9 ; Diabetes E11.9 and Diabetic neuropathy E11.40 [address] [address] Mar, Acute costochondritis M94.0 [address]00565100[place] [address] Mar, Bilateral low back pain without sciatica M54.5 and Bereavement Z63.[address]005[address]100[place] [address] Mar, Obstructive chronic bronchitis with acute exacerbation J44.1 ; Herpes zoster without complication B02.9 and [place] N91.[address]005[address]100[place] [address] Mar, [address]00565100[place] [address] Mar, [address]005[address]100[place] [address] Feb, History of recent traumatic injury of head V15.52 ; Diabetes type 2, uncontrolled 250.02 and Visual disturbance 368.9 [address] [address] Feb, History of recent traumatic injury of head V15.52 ; Visual disturbance 368.9 and Diabetes type 2, uncontrolled 250.02 IMMUNIZATIONS No Known Immunizations SOCIAL HISTORY Never Assessed REASON FOR VISIT DM ed PLAN OF CARE VITAL SIGNS MEDICATIONS Medication Instructions Dosage Frequency Start Date End Date Duration Status Levemir FlexTouch 100 UNIT/ML Subcutaneous twice a day 8 units 12h 27 Nov, 2016 Active RESULTS No Results PROCEDURES No Known [...] infection 2004 Hospitalization History in rehab at [facility] 2016 Hospitalization History Stroke 05/2017 Hospitalization History surgeries Hospitalization History Elevated B/S 07/2017
--- OUTSIDE RECORDS SUMMARY | 2018-05-13 11:13 | XMS REPORT ---
Author Author [facility]EC[facility] Address [address] [place] [address] Care Team Providers Care Sailor Name Role Phone CHRIS BECKWITH Unavailable PROBLEMS Type Condition ICD9-CM Code XOB60-OC Code Onset Dates Condition Status SNOMED Code Problem Diabetic neuropathy E11.40 Active 703821514 Problem Dysuria R30.0 Active 48371542 Problem Diabetes E11.9 Active 37631353 Problem Anxiety F41.9 Active 72368159 Problem Anemia D64.9 Active 245157709 Problem Stage 2 chronic kidney disease N18.2 Active 883763099 Problem Obstructive sleep apnea syndrome G47.33 Active 97868145 Problem Cocaine abuse F14.10 Active 45783574 Problem Essential hypertension I10 Active 26881280 Problem Type 2 diabetes mellitus with hyperglycemia E11.65 Active 751885332654754 Problem Shingles (herpes zoster) polyneuropathy B02.23 Active 367308523 ALLERGIES Unknown Allergies SOCIAL HISTORY No smoking Hx information available PLAN OF CARE VITAL SIGNS MEDICATIONS Medication Instructions Dosage Frequency Start Date End Date Duration Status Simvastatin 40 MG Orally Once a day 1 tablet in the evening 24h Active RESULTS No Results PROCEDURES No Known procedures IMMUNIZATIONS No Known Immunizations
--- OUTSIDE RECORDS SUMMARY | 2018-05-13 11:13 | XMS REPORT ---
Author Author [facility]EC[facility] Address [address] [place] [address] Care Team Providers Care Air Boatswain Name Role Phone CHRIS BECKWITH Unavailable PROBLEMS Type Condition ICD9-CM Code [id number] Code Onset Dates Condition Status SNOMED Code Problem Diabetic neuropathy E11.40 Active 912416809 Problem Dysuria R30.0 Active 88330358 Problem Diabetes E11.9 Active 02131693 Problem Anxiety F41.9 Active 34894626 Problem Anemia D64.9 Active 429377550 Problem Stage 2 chronic kidney disease N18.2 Active 722532242 Problem Obstructive sleep apnea syndrome G47.33 Active 58315194 Problem Cocaine abuse F14.10 Active 33259018 Problem Essential hypertension I10 Active 36270034 Problem Type 2 diabetes mellitus with hyperglycemia E11.65 Active 554366687672929 Problem Shingles (herpes zoster) polyneuropathy B02.23 Active 206016122 ALLERGIES Substance Reaction Event Type Date Status Phenergan nausea Drug Allergy May, Active Penicillin V Potassium nausea Drug Allergy May, Active SOCIAL HISTORY No smoking Hx information available PLAN OF CARE Activity Details Follow Up prn Reason: VITAL SIGNS Height 63.50 in 2016-05-22 Weight 122.5 lbs 2016-05-22 Temperature 98.2 degrees Fahrenheit 2016-05-22 Heart Rate 88 bpm 2016-05-22 Respiratory Rate 18 2016-05-22 BMI 21.36 kg/m2 2016-05-22 Blood pressure systolic 140 mmHg 2016-05-22 Blood pressure diastolic 82 mmHg 2016-05-22 MEDICATIONS Medication Instructions Dosage Frequency Start Date End Date Duration Status Pen [place] 31G X 6 MM as directed 24h Apr, 30 days Active Lisinopril 10 mg Orally Once a day 1 tablet 24h Active Simvastatin 20 mg Orally Once a day 1 tablet in the evening 24h Active Paxil 20 mg Orally Once a day 1 tablet in the morning 24h May, Active Ropinirole HCl 1 MG 1 tablet 1 to 3 hours before bedtime 30 days Active MetFORMIN HCl ER 500 MG Orally 2 times a day 2 tablet 12h 14 Apr, 2016 30 day(s) Active Lantus 100 UNIT/ML Subcutaneous Once a day at night 15 units Active Bactrim DS 800-160 MG Orally Twice a day 1 tablet 12h 08 May, 2016May 10 day(s) Active Lyrica 100 MG Orally Twice a day 1 capsule 12h Active RESULTS No Results PROCEDURES Procedure Date Ordered Related Diagnosis Body Site Office Visit, Est Pt., Level 3 May 22, 2016 IMMUNIZATIONS No Known Immunizations
--- OUTSIDE RECORDS SUMMARY | 2018-05-13 11:13 | XMS REPORT ---
Author Author BARRETT SCHRADER Organization [facility] Address [address] [place] [address] Care Team Providers Care Railway Shunter Name Role Phone BARRETT SCHRADER Unavailable PROBLEMS Type Condition ICD9-CM Code TUW42-LN Code Onset Dates Condition Status SNOMED Code Problem Type 2 diabetes mellitus with hyperglycemia E11.65 Active 912704454724156 Problem Sleep apnea in adult G47.30 Active 17496418 Problem Hyperlipidemia, unspecified E78.5 Active 95975155 Problem Abnormal mammogram of right breast R92.8 Active 350439424 Problem Breast asymmetry N64.89 Active 945434992 Problem Moderately severe depression F32.2 Active 579197548 Problem Hypoglycemia associated with type 2 diabetes mellitus E11.649 Active 367014993 Problem Hypoglycemia E16.2 Active 058383254 Problem Cerebrovascular accident (CVA), unspecified mechanism I63.9 Active 366843746 Problem Essential hypertension I10 Active 93379383 Problem Cocaine abuse F14.10 Active 74430201 Problem Diabetic neuropathy E11.40 Active 524374481 Problem Stage 2 chronic kidney disease N18.2 Active 004337201 Problem Anxiety F41.9 Active 31162615 Problem Obstructive sleep apnea syndrome G47.33 Active 61308585 ALLERGIES No Information ENCOUNTERS Encounter Location Date Diagnosis [facility] [place] [address] [id number] [place] [address] Sep Type 2 diabetes mellitus with hyperglycemia E11.65 ; Cocaine abuse F14.10 and Open wound of right great toe, subsequent encounter S91.101D [facility] [address] [id number] [place] [address] Sep [facility] [address] [id number] [place] [address] Aug [facility] [address] [id number] [place] [address] Aug [facility] [place] [address] [id number] [place] [address] Aug Type 2 diabetes mellitus with hyperglycemia E11.65 [facility] [place] [address] [id number] [place] [address] Aug [facility] [address] [facility] [id number] [place] [address] Aug, [facility] [place] [address] [id number] [place] [address] Jul [facility] [place] [address] [id number] [place] [address] Jul Diabetic neuropathy E11.40 ; Essential hypertension I10 and Type 2 diabetes mellitus with hyperglycemia E11.65 [facility] [place] [address] [id number] [place] [address] Jul [facility] [place] [address] [id number] [place] [address] Jul [facility] [place] [address] [id number] [place] [address] Jul [facility] [place] [address] [id number] [place] [address] Jul [facility] [place] [address] [id number] [place] [address] Jul [facility] [place] [address] [id number] [place] [address] Jul Type 2 diabetes mellitus with hyperglycemia E11.65 ; Open wound of right great toe, subsequent encounter S91.101D ; Essential hypertension I10 and Diabetic neuropathy E11.[address] [facility] [address] [id number] [place] [id number] Jul, [facility] [place] [address] [id number] [place] [address] Jun [facility] [place] [address] [id number] [place] [address] Jun Type 2 diabetes mellitus with hyperglycemia E11.65 [facility] [place] [address] [id number] [place] [address] Jun [facility] [place] [address] [id number] [place] [address] Jun [facility] [place] [address] [id number] [place] [address] Jun Abnormal mammogram of right breast R92.8 and Breast asymmetry N64.89 [facility] [place] [address] [id number] [place] [address] 15 Jun [facility] [place] [address] [id number] [place] [address] Jun [facility] [place] [address] [id number] [place] [address] May Hypoglycemia E16.2 [facility] [place] [address] [id number] [place] [address] May Abnormal neurological exam R29.90 [facility] [place] [address] [id number] [place] [address] May [facility] [place] [address] [id number] [place] [address] May Type 2 diabetes mellitus with hyperglycemia E11.65 [facility] [place] [address] [id number] [place] [address] May Breast cancer screening Z12.31 and Hematuria, unspecified type R31.9 [facility] [place] [address] [id number] [place] [address] May [facility] [place] [address] [id number] [place] [address] May Type 2 diabetes mellitus with hyperglycemia E11.65 ; Essential hypertension I10 ; Moderately severe depression F32.2 and Confusion R41.0 [facility] [address] [facility] [id number] [place] [address] May, [facility] [place] [address] [id number] [place] [address] May Cerebrovascular accident (CVA), unspecified mechanism I63.9 ; Essential hypertension I10 ; Hyperlipidemia, unspecified E78.5 and Type 2 diabetes mellitus with hyperglycemia E11.65 [facility] [address] [facility] [id number] [place] [address] May, [facility] [address] [facility] [id number] [place] [address] May, [facility] [place] [address] [id number] [place] [address] May [facility] [place] [address] [id number] [place] [address] May Diabetic neuropathy E11.40 and Diabetes E11.9 [facility] [place] [address] [id number] [place] [address] Apr [facility] [place] [address] [id number] [place] [address] Apr Subacute maxillary sinusitis J01.00 ; Hypoglycemia associated with type 2 diabetes mellitus E11.649 and Intractable episodic headache, unspecified headache type R51 [facility] [place] [address] [id number] [place] [address] Apr Diabetic neuropathy E11.40 and Anxiety F41.9 [facility] [place] [address] [id number] [place] [address] Apr [facility] [place] [address] [id number] [place] [address] Apr Type 2 diabetes mellitus with hyperglycemia E11.65 ; Subacute maxillary sinusitis J01.00 ; Diabetic neuropathy E11.40 and Sleep apnea in adult G47.30 [facility] [address] [facility] [id number] [place] [address] Apr, [facility] [place] [address] [id number] [place] [address] Apr [facility] [place] [address] [id number] [place] [address] Apr [facility] [place] [address] [id number] [place] [address] Apr Subacute maxillary sinusitis J01.00 [place] [address]005[address], [place] [address] Apr, Right foot drop M21.371 [facility] [place] [address] [id number] [place] [address] Apr [facility] [place] [address] [id number] [place] [address] Mar [facility] [place] [address] [id number] [place] [address] Mar Essential hypertension I10 ; Type 2 diabetes mellitus with hyperglycemia E11.65 ; Encounter for immunization Z23 ; Cocaine abuse F14.10 and Hyperlipidemia, unspecified E78.5 [facility] [place] [address] [id number] [place] [address] Mar [place] [address], [place] [address] Mar, [facility] [place] [address] [id number] [place] [address] Feb [facility] [place] [address] [id number] [place] [address] Feb Type 2 diabetes mellitus with hyperglycemia E11.65 and Acute right ankle pain M25.571 [facility] [place] [address] [id number] [place] [address] Feb Weight loss R63.4 and Anxiety F41.9 [place] [address], [place] [address] Jan, [place] [address], [place] [address] Jan, [place] [address] [id number], [place] [address] Jan, [place] [address], [place] [address] Jan, Diabetes E11.9 [facility] [place] [address] [id number] [place] [address] Jan Sprain of right ankle, unspecified ligament, initial encounter S93.401A [facility] MAN [address] [id number] [place] [address] Jan Essential hypertension I10 ; Anxiety F41.9 and Type 2 diabetes mellitus with hyperglycemia E11.65 [facility] [address] [place] [address] Jan, Diabetes E11.9 [facility] [id number] [place] [address] Jan, [facility] [id number] [place] [address] Jan, [facility] MAN [address] [id number] [place] [address] [facility] [id number] [place] [address] Jan, [facility] [id number] [place] [address] Jan, [facility] [id number] [place] [address] Jan, [facility] [id number] [place] [address] Jan, [facility] [address] [place] [address] Jan, Unintentional weight loss R63.4 ; Stage 2 chronic kidney disease N18.2 ; Exposure to hepatitis C Z20.5 ; Diabetic neuropathy E11.40 ; Obstructive sleep apnea syndrome G47.33 ; Essential hypertension I10 and Type 2 diabetes mellitus with hyperglycemia E11.65 [facility] [id number] [place] [address] Jan, [facility] [id number] [place] [address] Jan, Type 2 diabetes mellitus with hyperglycemia E11.65 ; Diabetic neuropathy E11.40 and Essential hypertension I10 [facility] [address] [id number], [place] [address] Dec, Diabetes E11.9 [facility] [address], [place] [address] Dec, [facility] [address], [place] [address] Dec, [facility] [address] [place] [address] Dec, [facility] [address], [place] [address] Dec, Dental examination Z01.20 [facility] [address], [place] [address] Dec, [facility] [address], [place] [address] Dec, Diabetes E11.9 [facility] [address], [place] [address] Dec, Stage 2 chronic kidney disease N18.2 ; Exposure to hepatitis C Z20.5 ; Obstructive sleep apnea syndrome G47.33 and Type 2 diabetes mellitus with hyperglycemia E11.65 [facility] [address] [id number], [place] [address] Dec, [facility] MAN [address] [id number] [place] [address] Dec Diabetes E11.9 and Essential hypertension I10 [facility] [address] [id number], [place] [address] Nov, Diabetes E11.9 [facility] [address] [id number], [place] [address] Nov, Right foot pain M79.671 [facility] [address] [id number] [address] Nov, Right foot pain M79.671 [facility] MAN [address] [id number] [place] [address] Nov Diabetes E11.9 [facility] [place] [address] [id number] [place] [address] Nov Diabetes E11.9 [facility] [address] [facility] [id number] [place] [address] 16 Nov, 2016 Dental examination Z01.20 [facility] [place] [address] [id number] [place] [address] 09 Nov Diabetes E11.9 ; Cocaine abuse F14.10 and Shingles (herpes zoster) polyneuropathy B02.23 [facility] [place] [address] [id number] [place] [address] Nov [facility] [address] [facility] [id number] [place] [address] October, [facility] [place] [address] [id number] [place] [address] October [facility] [place] [address] [id number] [place] [address] October Unintentional weight loss R63.4 [facility] [place] [address] [id number] [place] [address] October Abscess L02.91 [facility] [place] [address] [id number] [place] [address] October Diabetes E11.9 ; Unintentional weight loss R63.4 ; History of hematuria Z87.448 and Cocaine abuse F14.10 [facility] [place] [address] [id number] [place] [address] October Diabetes E11.9 [facility] [place] [address] [id number] [place] [address] October Essential hypertension I10 and Abscess L02.91 [facility] [place] [address] [id number] [place] [address] Jun [facility] [place] [address] [id number] [place] [address] May Breast cancer screening Z12.39 ; Diabetes E11.9 and Anxiety F41.9 [facility] [address] [facility] [id number] [place] [id number] 16 May, 2016 Diabetes E11.9 [facility] [place] [address] [id number] [place] [address] 15 May Diabetes E11.9 and Anemia D64.9 [facility] [place] [address] [id number] [place] [address] 14 May Anxiety F41.9 [facility] [place] [address] [id number] [place] [address] 08 May [facility] [place] [address] [id number] [place] [address] May Dysuria R30.0 [facility] [place] [address] [id number] [place] [address] May [facility] [place] [address] [id number] [place] [address] May Dysuria R30.0 [address] itching L29.8 [facility] [address] [id number], [place] [address] Apr, [facility] [address] [id number] [place] [address] Apr Diabetes E11.9 ; Dysuria R30.0 ; Diabetic neuropathy E11.40 ; Anemia D64.9 [address] discharge N89.8 [facility] [address], [place] [address] Jun, [place] [id number] [address] Jun, Anemia D64.9 ; Anxiety F41.9 ; Diabetes E11.9 and Diabetic neuropathy E11.40 [address] [address] May, [facility] [address] [id number], [place] [address] Apr, [id number] [id number] Apr, Anemia D64.9 ; Anxiety F41.9 ; Diabetes E11.9 and Diabetic neuropathy E11.40 [place] [id number] [place] [id number] Mar, Acute costochondritis M94.0 [place] [id number] [place] [id number] Mar, Bilateral low back pain without sciatica M54.5 and Bereavement Z63.[address] [id number] Mar, Obstructive chronic bronchitis with acute exacerbation J44.1 ; Herpes zoster without complication B02.9 and [place] N91.2 [place] [id number] [place] [id number] Mar, [place] [id number] [place] [id number] Mar, [place] [id number] [place] [id number] Feb, History of recent traumatic injury of head V15.52 ; Diabetes type 2, uncontrolled 250.02 and Visual disturbance 368.9 [address] [id number] Feb, History of recent traumatic injury of head V15.52 ; Visual disturbance 368.9 and Diabetes type 2, uncontrolled 250.02 IMMUNIZATIONS No Known Immunizations SOCIAL HISTORY Never Assessed REASON FOR VISIT Medication concerns PLAN OF CARE VITAL SIGNS MEDICATIONS Unknown [...] infection 2004 Hospitalization History in rehab at [facility] 2016 Hospitalization History Stroke 05/2017 Hospitalization History surgeries Hospitalization History Elevated B/S 07/2017
--- OUTSIDE RECORDS SUMMARY | 2018-05-13 11:14 | XMS REPORT ---
Author Author CHRIS BECKWITH [facility] Address [address] [place] [address] Care Team Providers Care Psychiatric Nurse Name Role Phone CHRIS BECKWITH Unavailable PROBLEMS Type Condition ICD9-CM Code IKT86-WT Code Onset Dates Condition Status SNOMED Code Problem Type 2 diabetes mellitus with hyperglycemia E11.65 Active [id number] Problem Sleep apnea in adult G47.30 Active 22965493 Problem Hyperlipidemia, unspecified E78.5 Active 99105117 Problem Abnormal mammogram of right breast R92.8 Active 811390352 Problem Breast asymmetry N64.89 Active 326399363 Problem Moderately severe depression F32.2 Active 068186586 Problem Hypoglycemia associated with type 2 diabetes mellitus E11.649 Active 960926418 Problem Hypoglycemia E16.2 Active 745222103 Problem Cerebrovascular accident (CVA), unspecified mechanism I63.9 Active 657268959 Problem Essential hypertension I10 Active 43173335 Problem Cocaine abuse F14.10 Active 24514984 Problem Diabetic neuropathy E11.40 Active 529100937 Problem Stage 2 chronic kidney disease N18.2 Active 008195841 Problem Anxiety F41.9 Active 60208922 Problem Obstructive sleep apnea syndrome G47.33 Active 00148726 ALLERGIES No Information ENCOUNTERS Encounter Location Date Diagnosis [facility] [address] [id number] [place] [address] Sep [facility] [address] [id number] [place] [address] Sep Breast asymmetry N64.89 [facility] [address] [id number] [place] [address] Sep [facility] [address] [id number] [place] [address] Sep Type 2 diabetes mellitus with hyperglycemia E11.65 ; Cocaine abuse F14.10 and Open wound of right great toe, subsequent encounter S91.101D [facility] [place] [address] [id number] [place] [address] Sep [facility] [place] [address] [id number] [place] [address] Aug [facility] [place] [address] [id number] [place] [address] Aug [facility] [place] [address] [id number] [place] [address] Aug Type 2 diabetes mellitus with hyperglycemia E11.65 [facility] [place] [address] [id number] [place] [address] Aug [facility] [address] [facility] [id number] [place] [address] Aug, [facility] [place] [address] [id number] [place] [address] Jul [facility] [place] [address] [id number] [place] [address] Jul Diabetic neuropathy E11.40 ; Essential hypertension I10 and Type 2 diabetes mellitus with hyperglycemia E11.65 [facility] [place] [address] [id number] [place] [address] Jul [facility] [place] [address] [id number] [place] [address] Jul [facility] [place] [address] [id number] [place] [address] Jul [facility] [place] [address] [id number] [place] [address] Jul [facility] [place] [address] [id number] [place] [address] Jul [facility] [place] [address] [id number] [place] [address] Jul Type 2 diabetes mellitus with hyperglycemia E11.65 ; Open wound of right great toe, subsequent encounter S91.101D ; Essential hypertension I10 and Diabetic neuropathy E11.[address] [facility] [address] [id number] [place] [id number] Jul, [facility] [place] [address] [id number] [place] [address] Jun [facility] [place] [address] [id number] [place] [address] Jun Type 2 diabetes mellitus with hyperglycemia E11.65 [facility] [place] [address] [id number] [place] [address] Jun [facility] [place] [address] [id number] [place] [address] Jun [facility] [place] [address] [id number] [place] [address] Jun Abnormal mammogram of right breast R92.8 and Breast asymmetry N64.89 [facility] [place] [address] [id number] [place] [address] Jun [facility] [place] [address] [id number] [place] [address] Jun [facility] [place] [address] [id number] [place] [address] May Hypoglycemia E16.2 [facility] [place] [address] [id number] [place] [address] May Abnormal neurological exam R29.90 [facility] [place] [address] [id number] [place] [address] May [facility] [place] [address] [id number] [place] [address] May Type 2 diabetes mellitus with hyperglycemia E11.65 [facility] [place] [address] [id number] [place] [address] May Breast cancer screening Z12.31 and Hematuria, unspecified type R31.9 [facility] [place] [address] [id number] [place] [address] May [facility] [place] [address] [id number] [place] [address] May Type 2 diabetes mellitus with hyperglycemia E11.65 ; Essential hypertension I10 ; Moderately severe depression F32.2 and Confusion R41.0 [address] [address] [address] May, [facility] [employer] [place] [address] [id number] [place] [address] May Cerebrovascular accident (CVA), unspecified mechanism I63.9 ; Essential hypertension I10 ; Hyperlipidemia, unspecified E78.5 and Type 2 diabetes mellitus with hyperglycemia E11.65 [place] [address] [address] May, [place] [address], [place] [address] May, [facility] [address] [id number] [place] [address] May [facility] [employer] [place] [address] [id number] [place] [address] May Diabetic neuropathy E11.40 and Diabetes E11.9 [facility] [employer] [place] [address] [id number] [place] [address] Apr [facility] [employer] [place] [address] [id number] [place] [address] Apr Subacute maxillary sinusitis J01.00 ; Hypoglycemia associated with type 2 diabetes mellitus E11.649 and Intractable episodic headache, unspecified headache type R51 [facility] [employer] [place] [address] [id number] [place] [address] Apr Diabetic neuropathy E11.40 and Anxiety F41.9 [facility] [employer] [place] [address] [id number] [place] [address] Apr [facility] [employer] [place] [address] [id number] [place] [address] Apr Type 2 diabetes mellitus with hyperglycemia E11.65 ; Subacute maxillary sinusitis J01.00 ; Diabetic neuropathy E11.40 and Sleep apnea in adult G47.30 [place] [address] [id number] [address] Apr, [facility] [place] [address] [id number] [place] [address] Apr [facility] [place] [address] [id number] [place] [address] Apr [facility] [place] [address] [id number] [place] [address] Apr Subacute maxillary sinusitis J01.00 [place] [address] [place] [id number] [place] [address] Apr, Right foot drop M21.371 [facility] [place] [address] [id number] [place] [address] Apr [facility] [place] [address] [id number] [place] [address] Mar [facility] [place] [address] [id number] [place] [address] Mar Essential hypertension I10 ; Type 2 diabetes mellitus with hyperglycemia E11.65 ; Encounter for immunization Z23 ; Cocaine abuse F14.10 and Hyperlipidemia, unspecified E78.5 [facility] [place] [address] [id number] [place] [address] Mar [place] [address] [place] [address] Mar, [facility] [place] [address] [id number] [place] [address] Feb [facility] [place] [address] [id number] [place] [address] Feb Type 2 diabetes mellitus with hyperglycemia E11.65 and Acute right ankle pain M25.571 [facility] [place] [address] [id number] [place] [address] Feb Weight loss R63.4 and Anxiety F41.9 [place] [address], [place] [address] Jan, [place] [address] [place] [id number] [place] [address] Jan, [facility] [address], [place] [address] Jan, [facility] [address] [id number] [place] [address] Jan, Diabetes E11.9 [facility] MAN [address] [id number] [place] [address] Jan Sprain of right ankle, unspecified ligament, initial encounter S93.401A [facility] [address] [id number] [place] [address] Jan Essential hypertension I10 ; Anxiety F41.9 and Type 2 diabetes mellitus with hyperglycemia E11.65 [place] [address] [place] [address] [id number] [place] [address] Jan, Diabetes E11.9 [facility] [address] [place] [address] Jan, [facility] [address] [place] [address] Jan, [facility] [place] [address] [id number] [place] [address] Jan [facility] [address] [place] [address] Jan, [facility] [address] [place] [address] Jan, [facility] [address] [place] [address] Jan, [facility] [address] [place] [address] Jan, [facility] [address] [place] [address] [id number] [place] [address] Jan, Unintentional weight loss R63.4 ; Stage 2 chronic kidney disease N18.2 ; Exposure to hepatitis C Z20.5 ; Diabetic neuropathy E11.40 ; Obstructive sleep apnea syndrome G47.33 ; Essential hypertension I10 and Type 2 diabetes mellitus with hyperglycemia E11.65 [facility] [address] [address] Jan, [facility] [address], [place] [address] Jan, Type 2 diabetes mellitus with hyperglycemia E11.65 ; Diabetic neuropathy E11.40 and Essential hypertension I10 [facility] [address] [address] Dec, Diabetes E11.9 [facility] [address], [place] [address] Dec, [facility] [address] [address] Dec, [facility] [address], [place] [address] Dec, [facility] [address] [address] Dec, Dental examination Z01.20 [facility] [address], [place] [address] Dec, [facility] [address], [place] [address] Dec, Diabetes E11.9 [facility] [address], [place] [address] Dec, Stage 2 chronic kidney disease N18.2 ; Exposure to hepatitis C Z20.5 ; Obstructive sleep apnea syndrome G47.33 and Type 2 diabetes mellitus with hyperglycemia E11.65 [facility] [address] [id number] [address] Dec, [facility] [place] [address] [id number] [place] [address] Dec Diabetes E11.9 and Essential hypertension I10 [facility] [address], [place] [address] Nov, Diabetes E11.9 [facility] [address] [facility] [id number] [place] [address] Nov, Right foot pain M79.671 [facility] [address] [id number] [place] [address] Nov, Right foot pain M79.671 [facility] [place] [address] [id number] [place] [address] Nov Diabetes E11.9 [facility] [place] [address] [id number] [place] [address] Nov Diabetes E11.9 [facility] [address] [id number] [place] [address] Nov, Dental examination Z01.20 [facility] [place] [address] [id number] [place] [address] Nov Diabetes E11.9 ; Cocaine abuse F14.10 and Shingles (herpes zoster) polyneuropathy B02.23 [facility] [place] [address] [id number] [place] [address] Nov [facility] [address] [facility] [id number] [place] [address] October, [facility] [place] [address] [id number] [place] [address] October [facility] [place] [address] [id number] [place] [address] October Unintentional weight loss R63.4 [facility] [place] [address] [id number] [place] [address] October Abscess L02.91 [facility] [place] [address] [id number] [place] [address] October Diabetes E11.9 ; Unintentional weight loss R63.4 ; History of hematuria Z87.448 and Cocaine abuse F14.10 [facility] [place] [address] [id number] [place] [address] October Diabetes E11.9 [facility] [place] [address] [id number] [place] [address] October Essential hypertension I10 and Abscess L02.91 [facility] [place] [address] [id number] [place] [address] Jun [facility] [place] [address] [id number] [place] [address] May Breast cancer screening Z12.39 ; Diabetes E11.9 and Anxiety F41.[address] [id number] [address] May, Diabetes E11.9 [facility] [place] [address] [id number] [place] [address] 15 May Diabetes E11.9 and Anemia D64.9 [facility] [place] [address] [id number] [place] [address] May Anxiety F41.9 [facility] [place] [address] [id number] [place] [address] May [facility] [place] [address] [id number] [place] [address] May Dysuria R30.0 [facility] [place] [address] [id number] [place] [address] May [facility] [place] [address] [id number] [place] [address] May Dysuria R30.0 and Vaginal itching L29.8 [place] [address] [id number] [address] Apr, [facility] [place] [address] [id number] [place] [address] Apr Diabetes E11.9 ; Dysuria R30.0 ; Diabetic neuropathy E11.40 ; Anemia D64.9 and Vaginal discharge N89.8 [facility] [address] [id number] [address] Jun, [facility] [place] [address] [id number] [address] Jun, Anemia D64.9 ; Anxiety F41.9 ; Diabetes E11.9 and Diabetic neuropathy E11.[address] [place] [id number] May, [facility] [address] [id number] [address] Apr, [place] [address] [place] [id number] Apr, Anemia D64.9 ; Anxiety F41.9 ; Diabetes E11.9 and Diabetic neuropathy E11.40 [place] [address] [place] [id number] Mar, Acute costochondritis M94.0 [place] [address] [place] [id number] Mar, Bilateral low back pain without sciatica M54.5 and Bereavement Z63.4 [place] [address] [place] [phone] Mar, Obstructive chronic bronchitis with acute exacerbation J44.1 ; Herpes zoster without complication B02.9 and [place] N91.[address] [id number] Mar, [place] 1136065[place] [id number] Mar, [place] [address] [place] [id number] Feb, History of recent traumatic injury of head V15.52 ; Diabetes type 2, uncontrolled 250.02 and Visual disturbance 368.9 [place] [address] [place] [id number] Feb, History of recent traumatic injury of head V15.52 ; Visual disturbance 368.9 and Diabetes type 2, uncontrolled 250.02 IMMUNIZATIONS No Known Immunizations SOCIAL HISTORY Never Assessed REASON FOR VISIT Paperwork PLAN OF CARE VITAL SIGNS MEDICATIONS [...] infection 2004 Hospitalization History in rehab at [place] 2016 Hospitalization History Stroke 05/2017 Hospitalization History surgeries Hospitalization History Elevated B/S 07/2017
--- OUTSIDE RECORDS SUMMARY | 2018-05-13 11:14 | XMS REPORT ---
Author Author BARRETT SCHRADER Organization [facility] Address [address] [place] [address] Care Team Providers Care Cob Sawyer Name Role Phone BARRETT SCHRADER Unavailable PROBLEMS Type Condition ICD9-CM Code WMC86-NO Code Onset Dates Condition Status SNOMED Code Problem Type 2 diabetes mellitus with hyperglycemia E11.65 Active 552933870820641 Problem Sleep apnea in adult G47.30 Active 01469888 Problem Hyperlipidemia, unspecified E78.5 Active 88151396 Problem Abnormal mammogram of right breast R92.8 Active 445133308 Problem Breast asymmetry N64.89 Active 547483625 Problem Moderately severe depression F32.2 Active 739759926 Problem Hypoglycemia associated with type 2 diabetes mellitus E11.649 Active 209700224 Problem Hypoglycemia E16.2 Active 213483517 Problem Cerebrovascular accident (CVA), unspecified mechanism I63.9 Active 767423096 Problem Essential hypertension I10 Active 38419858 Problem Cocaine abuse F14.10 Active 39277318 Problem Diabetic neuropathy E11.40 Active 002108764 Problem Stage 2 chronic kidney disease N18.2 Active 215165170 Problem Anxiety F41.9 Active 25153952 Problem Obstructive sleep apnea syndrome G47.33 Active 20750587 ALLERGIES No Information ENCOUNTERS Encounter Location Date Diagnosis [facility] MaterialGavin [place] [address] [id number] [place] [address] Sep Type 2 diabetes mellitus with hyperglycemia E11.65 ; Cocaine abuse F14.10 and Open wound of right great toe, subsequent encounter S91.101D [facility] SERVICESZ[facility] BancorporationONS [address] [id number] [place] [address] Sep [facility] SERVICESZions BancorporationYENY [address] [id number] [place] [address] Aug [facility] SERVICES[facility] BancorporationYENY [address] [id number] [place] [address] Aug [facility] [place] [address] [id number] [place] [address] Aug Type 2 diabetes mellitus with hyperglycemia E11.65 [facility] [place] [address] [id number] [place] [address] Aug [facility] [address] [facility] [id number] [place] [address] Aug, [facility] [place] [address] [id number] [place] [address] Jul [facility] [place] [address] [id number] [place] [address] Jul Diabetic neuropathy E11.40 ; Essential hypertension I10 and Type 2 diabetes mellitus with hyperglycemia E11.65 [facility] [place] [address] [id number] [place] [address] Jul [facility] [place] [address] [id number] [place] [address] Jul [facility] [place] [address] [id number] [place] [address] Jul [facility] [place] [address] [id number] [place] [address] Jul [facility] [place] [address] [id number] [place] [address] Jul [facility] [place] [address] [id number] [place] [address] Jul Type 2 diabetes mellitus with hyperglycemia E11.65 ; Open wound of right great toe, subsequent encounter S91.101D ; Essential hypertension I10 and Diabetic neuropathy E11.[address] [facility] [address] [id number] [place] [id number] Jul, [facility] [place] [address] [id number] [place] [address] Jun [facility] [place] [address] [id number] [place] [address] Jun Type 2 diabetes mellitus with hyperglycemia E11.65 [facility] [place] [address] [id number] [place] [address] Jun [facility] [place] [address] [id number] [place] [address] Jun [facility] [place] [address] [id number] [place] [address] Jun Abnormal mammogram of right breast R92.8 and Breast asymmetry N64.89 [facility] [place] [address] [id number] [place] [address] 15 Jun [facility] [place] [address] [id number] [place] [address] Jun [facility] [place] [address] [id number] [place] [address] May Hypoglycemia E16.2 [facility] [place] [address] [id number] [place] [address] May Abnormal neurological exam R29.90 [facility] [place] [address] [id number] [place] [address] May [facility] [place] [address] [id number] [place] [address] May Type 2 diabetes mellitus with hyperglycemia E11.65 [facility] [place] [address] [id number] [place] [address] May Breast cancer screening Z12.31 and Hematuria, unspecified type R31.9 [facility] [place] [address] [id number] [place] [address] May [facility] [place] [address] [id number] [place] [address] May Type 2 diabetes mellitus with hyperglycemia E11.65 ; Essential hypertension I10 ; Moderately severe depression F32.2 and Confusion R41.0 [facility] [address] [facility] [id number] [place] [address] May, [facility] [place] [address] [id number] [place] [address] May Cerebrovascular accident (CVA), unspecified mechanism I63.9 ; Essential hypertension I10 ; Hyperlipidemia, unspecified E78.5 and Type 2 diabetes mellitus with hyperglycemia E11.65 [facility] [address] [facility] [id number] [place] [address] May, [facility] [address] [facility] [id number] [place] [address] May, [facility] [place] [address] [id number] [place] [address] May [facility] [place] [address] [id number] [place] [address] May Diabetic neuropathy E11.40 and Diabetes E11.9 [facility] [place] [address] [id number] [place] [address] Apr [facility] [place] [address] [id number] [place] [address] Apr Subacute maxillary sinusitis J01.00 ; Hypoglycemia associated with type 2 diabetes mellitus E11.649 and Intractable episodic headache, unspecified headache type R51 [facility] [place] [address] [id number] [place] [address] Apr Diabetic neuropathy E11.40 and Anxiety F41.9 [facility] [place] [address] [id number] [place] [address] Apr [facility] [employer] [facility] [place] [address] [id number] [place] [address] Apr Type 2 diabetes mellitus with hyperglycemia E11.65 ; Subacute maxillary sinusitis J01.00 ; Diabetic neuropathy E11.40 and Sleep apnea in adult G47.30 [facility] [address] [facility] [id number] [place] [address] Apr, [facility] [place] [address] [id number] [place] [address] Apr [facility] [place] [address] [id number] [place] [address] Apr [facility] [place] [address] [id number] [place] [address] Apr Subacute maxillary sinusitis J01.00 [place] [address]005[address] [address] Apr, Right foot drop M21.371 [facility] [place] [address] [id number] [place] [address] Apr [facility] [place] [address] [id number] [place] [address] Mar [facility] [place] [address] [id number] [place] [address] Mar Essential hypertension I10 ; Type 2 diabetes mellitus with hyperglycemia E11.65 ; Encounter for immunization Z23 ; Cocaine abuse F14.10 and Hyperlipidemia, unspecified E78.5 [facility] [place] [address] [id number] [place] [address] Mar [place] [address] [address] Mar, [facility] [place] [address] [id number] [place] [address] Feb [facility] [place] [address] [id number] [place] [address] Feb Type 2 diabetes mellitus with hyperglycemia E11.65 and Acute right ankle pain M25.571 [facility] [place] [address] [id number] [place] [address] Feb Weight loss R63.4 and Anxiety F41.9 [place] [address] [address] Jan, [place] [address] [address] Jan, [place] [address] [place] [id number] [address] Jan, [place] [address] [address] Jan, Diabetes E11.9 [facility] [place] [address] [id number] [place] [address] Jan Sprain of right ankle, unspecified ligament, initial encounter S93.401A [facility] MAN [address] [id number] [place] [address] Jan Essential hypertension I10 ; Anxiety F41.9 and Type 2 diabetes mellitus with hyperglycemia E11.65 [facility] [address] [place] [address] Jan, Diabetes E11.9 [facility] [address] [place] [id number] [place] [address] Jan, [facility] [address] [id number] [place] [address] Jan, [facility] MAN [address] [id number] [place] [address] [facility] [address] [place] [id number] [place] [address] Jan, [facility] [id number] [place] [address] Jan, [facility] [id number] [place] [address] Jan, [facility] [id number] [place] [address] Jan, [facility] [address] [place] [address] Jan, Unintentional weight loss R63.4 ; Stage 2 chronic kidney disease N18.2 ; Exposure to hepatitis C Z20.5 ; Diabetic neuropathy E11.40 ; Obstructive sleep apnea syndrome G47.33 ; Essential hypertension I10 and Type 2 diabetes mellitus with hyperglycemia E11.65 [facility] [address] [place] [id number] [place] [address] Jan, [facility] [address] [id number] [place] [address] Jan, Type 2 diabetes mellitus with hyperglycemia E11.65 ; Diabetic neuropathy E11.40 and Essential hypertension I10 [facility] [address] [address] [id number] [address] Dec, Diabetes E11.9 [facility] [address]100[place] [address] Dec, [facility] [address] [address] Dec, [facility] [address] [place] [address] Dec, [facility] [address] [address] Dec, Dental examination Z01.20 [facility] [address]00565100[place] [address] Dec, [facility] [address]100[place] [address] Dec, Diabetes E11.9 [facility] [address]65100[place] [address] Dec, Stage 2 chronic kidney disease N18.2 ; Exposure to hepatitis C Z20.5 ; Obstructive sleep apnea syndrome G47.33 and Type 2 diabetes mellitus with hyperglycemia E11.65 [facility] [address] [id number] [address] Dec, [facility] MAN [address] [id number] [place] [address] Dec Diabetes E11.9 and Essential hypertension I10 [facility] [address] [id number] [address] Nov, Diabetes E11.9 [facility] [address] [address] [id number] [address] Nov, Right foot pain M79.671 [facility] [address] [place] [id number] [address] Nov, Right foot pain M79.671 [facility] MAN [address] [id number] [place] [address] Nov Diabetes E11.9 [facility] [place] [address] [id number] [place] [address] Nov Diabetes E11.9 [facility] [address] [facility] [id number] [place] [id number] 16 Nov, 2016 Dental examination Z01.20 [facility] [place] [address] [id number] [place] [address] 09 Nov Diabetes E11.9 ; Cocaine abuse F14.10 and Shingles (herpes zoster) polyneuropathy B02.23 [facility] [place] [address] [id number] [place] [address] Nov [facility] [address] [facility] [id number] [place] [address] October, [facility] [place] [address] [id number] [place] [address] October [facility] [place] [address] [id number] [place] [address] October Unintentional weight loss R63.4 [facility] [place] [address] [id number] [place] [address] October Abscess L02.91 [facility] [place] [address] [id number] [place] [address] October Diabetes E11.9 ; Unintentional weight loss R63.4 ; History of hematuria Z87.448 and Cocaine abuse F14.10 [facility] [place] [address] [id number] [place] [address] October Diabetes E11.9 [facility] [place] [address] [id number] [place] [address] October Essential hypertension I10 and Abscess L02.91 [facility] [place] [address] [id number] [place] [address] Jun [facility] [place] [address] [id number] [place] [address] May Breast cancer screening Z12.39 ; Diabetes E11.9 and Anxiety F41.9 [facility] [address] [facility] [id number] [place] [id number] 16 May, 2016 Diabetes E11.9 [facility] [place] [address] [id number] [place] [address] 15 May Diabetes E11.9 and Anemia D64.9 [facility] [place] [address] [id number] [place] [address] 14 May Anxiety F41.9 [facility] [place] [address] [id number] [place] [address] 08 May [facility] [place] [address] [id number] [place] [address] May Dysuria R30.0 [facility] [place] [address] [id number] [place] [address] May [facility] [place] [address] [id number] [place] [address] May Dysuria R30.0 and Vaginal itching L29.8 [facility] [address] [address] [id number] [address] Apr, [facility] [address] [id number] [place] [address] Apr Diabetes E11.9 ; Dysuria R30.0 ; Diabetic neuropathy E11.40 ; Anemia D64.9 and Vaginal discharge N89.8 [facility] [address] [address] Jun, [place] [id number] [id number] Jun, Anemia D64.9 ; Anxiety F41.9 ; Diabetes E11.9 and Diabetic neuropathy E11.[address]00565100[place] [id number] May, [facility] [address] [address] [id number] [address] Apr, [id number] [address] Apr, Anemia D64.9 ; Anxiety F41.9 ; Diabetes E11.9 and Diabetic neuropathy E11.40 [address] [id number] [place] [id number] Mar, Acute costochondritis M94.0 [place] [id number] [place] [id number] Mar, Bilateral low back pain without sciatica M54.5 and Bereavement Z63.[address] [id number] Mar, Obstructive chronic bronchitis with acute exacerbation J44.1 ; Herpes zoster without complication B02.9 and [place] N91.2 [place] [id number] [place] [id number] Mar, [place] [id number] [place] [id number] Mar, [place] [id number] [place] [id number] Feb, History of recent traumatic injury of head V15.52 ; Diabetes type 2, uncontrolled 250.02 and Visual disturbance 368.[address]00565100[place] [id number] Feb, History of recent traumatic injury of head V15.52 ; Visual disturbance 368.9 and Diabetes type 2, uncontrolled 250.02 IMMUNIZATIONS No Known Immunizations SOCIAL HISTORY Never Assessed REASON FOR VISIT 1 week DM ed f/u PLAN OF CARE VITAL [...] infection 2004 Hospitalization History in rehab at [facility] 2017 Hospitalization History Stroke 05/2017 Hospitalization History surgeries Hospitalization History Elevated B/S 07/2017
--- OUTSIDE RECORDS SUMMARY | 2018-05-13 11:16 | XMS REPORT ---
Author [facility] Address [address] [place] [address] Care Team Providers Care Sports Manager Name Role Phone SAFIA LANE Unavailable PROBLEMS Type Condition ICD9-CM Code XAQ79-EG Code Onset Dates Condition Status SNOMED Code Problem Sleep apnea in adult G47.30 Active 58123792 Problem Moderately severe depression F32.2 Active 283338497 Problem Hypoglycemia associated with type 2 diabetes mellitus E11.649 Active 979843772 Problem PVD (peripheral vascular disease) I73.9 Active 199439809 Problem PAD (peripheral artery disease) I73.9 Active 989011905 Problem Hypoglycemia E16.2 Active 994199335 Problem Cerebrovascular accident (CVA), unspecified mechanism I63.9 Active 445408943 Problem Breast asymmetry N64.89 Active 111428289 Problem Abnormal mammogram of right breast R92.8 Active 433281531 Problem Diabetic neuropathy E11.40 Active 354119676 Problem Anxiety F41.9 Active 83056415 Problem Obstructive sleep apnea syndrome G47.33 Active 83982887 Problem Stage 2 chronic kidney disease N18.2 Active 034910381 Problem Essential hypertension I10 Active 76844108 Problem Type 2 diabetes mellitus with hyperglycemia E11.65 Active 087190601732243 Problem Cocaine abuse F14.10 Active 48518414 Problem Hyperlipidemia, unspecified E78.5 Active 75674153 ALLERGIES Substance Reaction Event Type Date Status Phenergan nausea Drug Allergy May, Active Penicillin V Potassium nausea Drug Allergy May, Active Codeine Sulfate itch Drug Allergy May, Active ENCOUNTERS Encounter Location Date Diagnosis [facility] [address] [id number] [place] [address] Nov [facility] [address] [id number] [place] [address] Nov [facility] [place] [address] [id number] [place] [address] Nov PVD (peripheral vascular disease) I73.9 ; Type 2 diabetes mellitus with hyperglycemia E11.65 and PAD (peripheral artery disease) I73.9 [facility] [place] [address] [id number] [place] [address] Nov [facility] [place] [address] [id number] [place] [address] Nov [facility] [place] [address] [id number] [place] [address] Nov [facility] [place] [address] [id number] [place] [address] October [facility] [place] [address] [id number] [place] [address] October [facility] [place] [address] [id number] [place] [address] October Type 2 diabetes mellitus with hyperglycemia E11.65 and Surgical procedure on lower extremity within past 6 months Z98.890 [facility] [place] [address] [id number] [place] [address] October [facility] [place] [address] [id number] [place] [address] October [facility] [address] [facility] [id number] [place] [address] October, [facility] [place] [address] [id number] [place] [address] October Sleep apnea in adult G47.30 [facility] [place] [address] [id number] [place] [address] October Type 2 diabetes mellitus with hyperglycemia E11.65 [facility] [place] [address] [id number] [place] [address] Sep [facility] [place] [address] [id number] [place] [address] Sep Breast asymmetry N64.89 [facility] [place] [address] [id number] [place] [address] Sep [facility] [place] [address] [id number] [place] [address] Sep Type 2 diabetes mellitus with hyperglycemia E11.65 ; Cocaine abuse F14.10 and Open wound of right great toe, subsequent encounter S91.101D [facility] [place] [address] [id number] [place] [address] Sep [facility] [place] [address] [id number] [place] [address] Aug [facility] [place] [address] [id number] [place] [address] Aug [facility] [place] [address] [id number] [place] [address] Aug Type 2 diabetes mellitus with hyperglycemia E11.65 [facility] [place] [address] [id number] [place] [address] Aug [facility] [address] [id number] [place] [address] Aug, [facility] [place] [address] [id number] [place] [address] Jul [facility] [place] [address] [id number] [place] [address] Jul Diabetic neuropathy E11.40 ; Essential hypertension I10 and Type 2 diabetes mellitus with hyperglycemia E11.65 [facility] [place] [address] [id number] [place] [address] Jul [facility] [place] [address] [id number] [place] [address] Jul [facility] [place] [address] [id number] [place] [address] Jul [facility] [place] [address] [id number] [place] [address] Jul [facility] [place] [address] [id number] [place] [address] Jul [facility] [place] [address] [id number] [place] [address] Jul Type 2 diabetes mellitus with hyperglycemia E11.65 ; Open wound of right great toe, subsequent encounter S91.101D ; Essential hypertension I10 and Diabetic neuropathy E11.[address] [facility] [address] [id number] [place] [address] Jul, [facility] [place] [address] [id number] [place] [address] Jun [facility] [place] [address] [id number] [place] [address] Jun Type 2 diabetes mellitus with hyperglycemia E11.65 [facility] [place] [address] [id number] [place] [address] Jun [facility] [place] [address] [id number] [place] [address] Jun [facility] [place] [address] [id number] [place] [address] Jun Abnormal mammogram of right breast R92.8 and Breast asymmetry N64.89 [facility] [place] [address] [id number] [place] [address] Jun [facility] [place] [address] [id number] [place] [address] Jun [facility] [place] [address] [id number] [place] [address] May Hypoglycemia E16.2 [facility] [place] [address] [id number] [place] [address] May Abnormal neurological exam R29.90 [facility] [place] [address] [id number] [place] [address] May [facility] [place] [address] [id number] [place] [address] May Type 2 diabetes mellitus with hyperglycemia E11.65 [facility] [place] [address] [id number] [place] [address] May Breast cancer screening Z12.31 and Hematuria, unspecified type R31.9 [facility] [place] [address] [id number] [place] [address] May [facility] [address] [id number] [place] [address] May Type 2 diabetes mellitus with hyperglycemia E11.65 ; Essential hypertension I10 ; Moderately severe depression F32.2 and Confusion R41.0 [place] [address] [id number] [place] [address] May, [facility] [address] [id number] [place] [address] May Cerebrovascular accident (CVA), unspecified mechanism I63.9 ; Essential hypertension I10 ; Hyperlipidemia, unspecified E78.5 and Type 2 diabetes mellitus with hyperglycemia E11.65 [place] [address] [address] May, [place] [address] [id number], [place] [address] May, [facility] [address] [id number] [place] [address] May [facility] [address] [id number] [place] [address] May Diabetic neuropathy E11.40 and Diabetes E11.9 [facility] [place] [address] [id number] [place] [address] Apr [facility] [address] [id number] [place] [address] Apr Subacute maxillary sinusitis J01.00 ; Hypoglycemia associated with type 2 diabetes mellitus E11.649 and Intractable episodic headache, unspecified headache type R51 [facility] [place] [address] [id number] [place] [address] Apr Diabetic neuropathy E11.40 and Anxiety F41.9 [facility] [place] [address] [id number] [place] [address] Apr [facility] [place] [address] [id number] [place] [address] Apr Type 2 diabetes mellitus with hyperglycemia E11.65 ; Subacute maxillary sinusitis J01.00 ; Diabetic neuropathy E11.40 and Sleep apnea in adult G47.30 [place] [address] [id number] [place] [address] Apr, [facility] [place] [address] [id number] [place] [address] [address] [facility] [place] [address] [id number] [place] [address] Apr [facility] [place] [address] [id number] [place] [address] Apr Subacute maxillary sinusitis J01.00 [place] [address] [address] Apr, Right foot drop M21.371 [facility] [place] [address] [id number] [place] [address] [facility] [place] [address] [id number] [place] [address] Mar [facility] [place] [address] [id number] [place] [address] Mar Essential hypertension I10 ; Type 2 diabetes mellitus with hyperglycemia E11.65 ; Encounter for immunization Z23 ; Cocaine abuse F14.10 and Hyperlipidemia, unspecified E78.5 [facility] [place] [address] [id number] [place] [address] Mar [place] [address] [id number], [place] [address] Mar, [facility] [place] [address] [id number] [place] [address] Feb [facility] [place] [address] [id number] [place] [address] Feb Type 2 diabetes mellitus with hyperglycemia E11.65 and Acute right ankle pain M25.571 [facility] [place] [address] [id number] [place] [address] Feb Weight loss R63.4 and Anxiety F41.9 [place] [address] [id number] [address] Jan, [facility] [address]00565100[place], [place] [address] Jan, [facility] [address]00565100[place], [place] [address] Jan, [facility] [address]00565100[place] [address] Jan, Diabetes E11.9 [facility] MAN [address] [id number] [place] [address] Jan Sprain of right ankle, unspecified ligament, initial encounter S93.401A [facility] [place] [address] [id number] [place] [address] Jan Essential hypertension I10 ; Anxiety F41.9 and Type 2 diabetes mellitus with hyperglycemia E11.65 [facility] [address]00565100[place], [place] [address] Jan, Diabetes E11.9 [facility] [address]00565100[place], [place] [address] Jan, [facility] [address] [place] [address] Jan, [facility] [place] [address] [id number] [place] [address] Jan [facility] [address]00565100[place] [address] Jan, [facility] [address]00565100[place] [address] Jan, [facility] [address]00565100[place], [place] [address] Jan, [facility] [address]00565100[place] [address] Jan, [facility] [address]00565100[place] [address] Jan, Unintentional weight loss R63.4 ; Stage 2 chronic kidney disease N18.2 ; Exposure to hepatitis C Z20.5 ; Diabetic neuropathy E11.40 ; Obstructive sleep apnea syndrome G47.33 ; Essential hypertension I10 and Type 2 diabetes mellitus with hyperglycemia E11.65 [facility] [address]00565100[place] [address] Jan, [facility] [id number] [place] [address] Jan, Type 2 diabetes mellitus with hyperglycemia E11.65 ; Diabetic neuropathy E11.40 and Essential hypertension I10 [facility] [address] [place] [address] Dec, Diabetes E11.9 [facility] [address] [place] [address] Dec, [facility] [id number] [place] [address] Dec, [facility] [address] [place] [address] Dec, [facility] [id number] [place] [address] Dec, Dental examination Z01.20 [facility] [address] [place] [address] Dec, [facility] [address] [place] [address] Dec, Diabetes E11.9 [facility] [address]00565100[place] [address] Dec, Stage 2 chronic kidney disease N18.2 ; Exposure to hepatitis C Z20.5 ; Obstructive sleep apnea syndrome G47.33 and Type 2 diabetes mellitus with hyperglycemia E11.65 [facility] [address]00565100[place], [place] [address] Dec, [facility] [place] [address] [id number] [place] [address] Dec Diabetes E11.9 and Essential hypertension I10 [facility] [address] [facility] [id number] [place] [address] Nov, Diabetes E11.9 [facility] [address] [id number] [place] [address] Nov, Right foot pain M79.671 [facility] [address] [id number] [address] Nov, Right foot pain M79.671 [facility] [place] [address] [id number] [place] [address] [facility] [place] [address] [id number] [place] [address] Nov Diabetes E11.9 [facility] [address] [id number] [place] [address] Nov, Dental examination Z01.20 [facility] [place] [address] [id number] [place] [address] Nov Diabetes E11.9 ; Cocaine abuse F14.10 and Shingles (herpes zoster) polyneuropathy B02.23 [facility] [place] [address] [id number] [place] [address] Nov [facility] [address] [id number] [place] [address] October, [facility] [place] [address] [id number] [place] [address] October [facility] [place] [address] [id number] [place] [address] October Unintentional weight loss R63.4 [facility] [place] [address] [id number] [place] [address] October Abscess L02.91 [facility] [place] [address] [id number] [place] [address] October Diabetes E11.9 ; Unintentional weight loss R63.4 ; History of hematuria Z87.448 and Cocaine abuse F14.10 [facility] [place] [address] [id number] [place] [address] October Diabetes E11.9 [facility] [place] [address] [id number] [place] [address] October Essential hypertension I10 and Abscess L02.91 [facility] [place] [address] [id number] [place] [address] Jun [facility] [place] [address] [id number] [place] [address] May Breast cancer screening Z12.39 ; Diabetes E11.9 and Anxiety F41.9 [facility] [place] [address] [facility] [id number] [place] [address] May, Diabetes E11.9 [facility] [place] [address] [id number] [place] [address] May Diabetes E11.9 and Anemia D64.9 [facility] [place] [address] [id number] [place] [address] May Anxiety F41.9 [facility] [place] [address] [id number] [place] [address] 08 May [facility] [place] [address] [id number] [place] [address] May Dysuria R30.0 [facility] [place] [address] [id number] [place] [address] May [facility] [place] [address] [id number] [place] [address] 05 May Dysuria R30.0 and Vaginal itching L29.8 [facility] [address] [id number] [place] [address] Apr, [facility] [place] [address] [id number] [place] [address] 14 Apr Diabetes E11.9 ; Dysuria R30.0 ; Diabetic neuropathy E11.40 ; Anemia D64.9 and Vaginal discharge N89.8 [facility] [address] [id number] [address] Jun, [address]00565100[place] [address] Jun, Anemia D64.9 ; Anxiety F41.9 ; Diabetes E11.9 and Diabetic neuropathy E11.40 [address]00565100[place] [address] May, [facility] [address] 1720365100[place] [address] Apr, [place] [id number] [place] [id number] Apr, Anemia D64.9 ; Anxiety F41.9 ; Diabetes E11.9 and Diabetic neuropathy E11.40 [place] [address] [place] [id number] Mar, Acute costochondritis M94.0 [place] [address] [place] [id number] Mar, Bilateral low back pain without sciatica M54.5 and Bereavement Z63.4 [place] [address] [place] [id number] Mar, Obstructive chronic bronchitis with acute exacerbation J44.1 ; Herpes zoster without complication B02.9 and [place] N91.2 [place] [address] [place] [id number] Mar, [place] [address] [place] [id number] Mar, [place] [address] [place] [id number] Feb, History of recent traumatic injury of head V15.52 ; Diabetes type 2, uncontrolled 250.02 and Visual disturbance 368.9 [place] [address] [place] [phone] Feb, History of recent traumatic injury of head V15.52 ; Visual disturbance 368.9 and Diabetes type 2, uncontrolled 250.02 IMMUNIZATIONS No Known Immunizations SOCIAL HISTORY Never Assessed REASON FOR VISIT Facial Swelling. TERRANCE childs PLAN OF CARE Activity Details Follow Up prn Reason: VITAL SIGNS Height 63.50 in 2017-06-04 Weight 127.1 lbs 2017-06-04 Temperature 98.1 degrees Fahrenheit 2017-06-04 Heart Rate 96 bpm 2017-06-04 Respiratory Rate 18 2017-06-04 BMI 22.16 kg/m2 2017-06-04 Blood pressure systolic 120 mmHg 2017-06-04 Blood pressure diastolic 70 mmHg 2017-06-04 MEDICATIONS Medication Instructions Dosage Frequency Start Date End Date Duration Status Amlodipine Besylate 10 MG Orally Once a day 1 tablet 24h May, Active Atorvastatin Calcium 20 mg Orally Once a day 1 tablet 24h May, Active Cephalexin 500 mg Orally every 12 hrs 1 capsule 12h May, 07 days Not-Taking Metformin HCl 850 MG Orally Twice a day 1 tablet with meals May, Active Lisinopril 20 MG Orally Once a day 1 tablet 24h Jan, Active HydrOXYzine HCl 25 MG Orally 2 times a day as needed for anxieyt 1 tablet as needed Feb, 30 day(s) Not-Taking Acetaminophen 325 MG Orally Once a day 1 capsules as needed 24h May, Active Glucocard Expression Test - as directed 12h Nov, Not- Taking Lisinopril 20 mg Orally Once a day 1 tablet 24h May, 30 day(s) Not-Taking Fluticasone Propionate 50 MCG/ACT Nasally Once a day 1 spray in each nostril 24h 30 day(s) Not-Taking Glimepiride 4 MG Orally Once a day 1 tablet with breakfast or the first main meal of the day 24h Apr, Active Protonix 40 mg Orally Once a day 1 tablet 24h May, 30 day(s) Not-Taking Aspirin 81 MG Orally Once a day 1 tablet 24h May, Active Tresiba FlexTouch 100 UNIT/ML Subcutaneous at bedtime Inject 10 units Jan, Not-Taking Bactrim DS 800-160 MG Orally Twice a day 1 tablet 12May, Jun, 07 days Active Ropinirole HCl 1 MG Orally at bedtime 1 tablet 1 to 3 hours before bedtime 30 days Active Multi Complete Not-Taking Glucocard Expression Test - subcutaneously 2 times a day as directed 12h Nov, 30 days Active NovoLog Flexpen 100 UNIT/ML Subcutaneous 3 times a day 3 units 8h 01 Jan, 2017 Not-Taking RESULTS No Results PROCEDURES No Known [...] infection 2004 Hospitalization History in rehab at [facility] 2016 Hospitalization History Stroke 05/2017 Hospitalization History surgeries Hospitalization History Elevated B/S 07/2017 Hospitalization History [facility] - blood clot LRE 10/2017 Hospitalization History [facility] - R ankle clot 11/2017
--- OUTSIDE RECORDS SUMMARY | 2018-05-13 11:17 | XMS REPORT ---
Author Author NATALY ALAN [facility] Address [address] [place] [address] Care Team Providers Care Bus And Trolley Inspecting Dispatcher Name Role Phone NATALY ALAN Unavailable PROBLEMS Type Condition ICD9-CM Code IZQ58-TG Code Onset Dates Condition Status SNOMED Code Problem Type 2 diabetes mellitus with hyperglycemia E11.65 Active 914167659706447 Problem Sleep apnea in adult G47.30 Active 27241540 Problem Hyperlipidemia, unspecified E78.5 Active 24236574 Problem Abnormal mammogram of right breast R92.8 Active 752373490 Problem Breast asymmetry N64.89 Active 421210183 Problem Moderately severe depression F32.2 Active 981845165 Problem Hypoglycemia associated with type 2 diabetes mellitus E11.649 Active 877402809 Problem Hypoglycemia E16.2 Active 512797101 Problem Cerebrovascular accident (CVA), unspecified mechanism I63.9 Active 580578192 Problem Essential hypertension I10 Active 73881806 Problem Cocaine abuse F14.10 Active 19271930 Problem Diabetic neuropathy E11.40 Active 353013043 Problem Stage 2 chronic kidney disease N18.2 Active 512570058 Problem Anxiety F41.9 Active 29190851 Problem Obstructive sleep apnea syndrome G47.33 Active 18809138 ALLERGIES Substance Reaction Event Type Date Status Phenergan nausea Drug Allergy Nov, Active Penicillin V Potassium nausea Drug Allergy Nov, Active CODIENE Unknown Non Drug Allergy Nov, Active ENCOUNTERS Encounter Location Date Diagnosis [facility] [place] [address] [id number] [place] [address] Aug [facility] [place] [address] [id number] [place] [address] Aug [facility] [place] [address] [id number] [place] [address] Aug Type 2 diabetes mellitus with hyperglycemia E11.65 [facility] [place] [address] [id number] [place] [address] Aug [facility] [address] [facility] [id number] [place] [address] Aug, [facility] [place] [address] [id number] [place] [address] Jul [facility] [place] [address] [id number] [place] [address] Jul Diabetic neuropathy E11.40 ; Essential hypertension I10 and Type 2 diabetes mellitus with hyperglycemia E11.65 [facility] [place] [address] [id number] [place] [address] Jul [facility] [place] [address] [id number] [place] [address] Jul [facility] [place] [address] [id number] [place] [address] Jul [facility] [place] [address] [id number] [place] [address] Jul [facility] [place] [address] [id number] [place] [address] Jul [facility] [place] [address] [id number] [place] [address] Jul Type 2 diabetes mellitus with hyperglycemia E11.65 ; Open wound of right great toe, subsequent encounter S91.101D ; Essential hypertension I10 and Diabetic neuropathy E11.40 [facility] [address] [id number] [place] [address] Jul, [facility] [place] [address] [id number] [place] [address] Jun [facility] [place] [address] [id number] [place] [address] Jun Type 2 diabetes mellitus with hyperglycemia E11.65 [facility] [place] [address] [id number] [place] [address] Jun [facility] [place] [address] [id number] [place] [address] Jun [facility] [place] [address] [id number] [place] [address] Jun Abnormal mammogram of right breast R92.8 and Breast asymmetry N64.89 [facility] [place] [address] [id number] [place] [address] 15 Jun [facility] [place] [address] [id number] [place] [address] Jun [facility] [place] [address] [id number] [place] [address] May Hypoglycemia E16.2 [facility] [place] [address] [id number] [place] [address] May Abnormal neurological exam R29.90 [facility] [place] [address] [id number] [place] [address] May [facility] [place] [address] [id number] [place] [address] May Type 2 diabetes mellitus with hyperglycemia E11.65 [facility] [place] [address] [id number] [place] [address] May Breast cancer screening Z12.31 and Hematuria, unspecified type R31.9 [facility] [place] [address] [id number] [place] [address] May [facility] [place] [address] [id number] [place] [address] May Type 2 diabetes mellitus with hyperglycemia E11.65 ; Essential hypertension I10 ; Moderately severe depression F32.2 and Confusion R41.0 [place] [address], [place] [address] May, [facility] [place] [address] [id number] [place] [address] 08 May Cerebrovascular accident (CVA), unspecified mechanism I63.9 ; Essential hypertension I10 ; Hyperlipidemia, unspecified E78.5 and Type 2 diabetes mellitus with hyperglycemia E11.65 [place] [address] [address] May, [facility] [address] [facility] [id number] [place] [address] May, [facility] [place] [address] [id number] [place] [address] May [facility] [place] [address] [id number] [place] [address] May Diabetic neuropathy E11.40 and Diabetes E11.9 [facility] [place] [address] [id number] [place] [address] Apr [facility] [place] [address] [id number] [place] [address] Apr Subacute maxillary sinusitis J01.00 ; Hypoglycemia associated with type 2 diabetes mellitus E11.649 and Intractable episodic headache, unspecified headache type R51 [facility] [place] [address] [id number] [place] [address] Apr Diabetic neuropathy E11.40 and Anxiety F41.9 [facility] [place] [address] [id number] [place] [address] Apr [facility] [place] [address] [id number] [place] [address] Apr Type 2 diabetes mellitus with hyperglycemia E11.65 ; Subacute maxillary sinusitis J01.00 ; Diabetic neuropathy E11.40 and Sleep apnea in adult G47.30 [facility] [address] [facility] [id number] [place] [address] Apr, [facility] [place] [address] [id number] [place] [address] Apr [facility] [place] [address] [id number] [place] [address] Apr [facility] [place] [address] [id number] [place] [address] Apr Subacute maxillary sinusitis J01.00 [facility] [address] [facility] [id number] [place] [address] Apr, Right foot drop M21.371 [facility] [place] [address] [id number] [place] [address] Apr [facility] [place] [address] [id number] [place] [address] Mar [facility] [place] [address] [id number] [place] [address] Mar Essential hypertension I10 ; Type 2 diabetes mellitus with hyperglycemia E11.65 ; Encounter for immunization Z23 ; Cocaine abuse F14.10 and Hyperlipidemia, unspecified E78.5 [facility] [place] [address] [id number] [place] [address] Mar [place] [address], [place] [address] Mar, [facility] [place] [address] [id number] [place] [address] Feb [facility] [place] [address] [id number] [place] [address] Feb Type 2 diabetes mellitus with hyperglycemia E11.65 and Acute right ankle pain M25.571 [facility] [place] [address] [id number] [place] [address] Feb Weight loss R63.4 and Anxiety F41.9 [place] [address], [place] [address] Jan, [facility] [address], [place] [address] Jan, [facility] [address] [place] [address] Jan, [facility] [address], [place] [address] Jan, Diabetes E11.9 [facility] [place] [address] [id number] [place] [address] Jan Sprain of right ankle, unspecified ligament, initial encounter S93.401A [facility] [place] [address] [id number] [place] [address] Jan Essential hypertension I10 ; Anxiety F41.9 and Type 2 diabetes mellitus with hyperglycemia E11.65 [facility] [address], [place] [address] Jan, Diabetes E11.9 [facility] [address], [place] [address] Jan, [facility] [address], [place] [address] Jan, [address] [id number] [place] [address] Jan [facility] [address] [place] [address] Jan, [facility] [address], [place] [address] Jan, [facility] [address], [place] [address] Jan, [facility] [address], [place] [address] Jan, [facility] [address], [place] [address] Jan, Unintentional weight loss R63.4 ; Stage 2 chronic kidney disease N18.2 ; Exposure to hepatitis C Z20.5 ; Diabetic neuropathy E11.40 ; Obstructive sleep apnea syndrome G47.33 ; Essential hypertension I10 and Type 2 diabetes mellitus with hyperglycemia E11.65 [facility] [address], [place] [address] Jan, [facility] [address], [place] [address] Jan, Type 2 diabetes mellitus with hyperglycemia E11.65 ; Diabetic neuropathy E11.40 and Essential hypertension I10 [facility] [address], [place] [address] Dec, Diabetes E11.9 [facility] [address], [place] [address] Dec, [facility] [address], [place] [address] Dec, [facility] [address], [place] [address] Dec, [facility] [address], [place] [address] Dec, Dental examination Z01.20 [facility] [address], [place] [address] Dec, [facility] [address], [place] [address] Dec, Diabetes E11.9 [facility] [address], [place] [address] Dec, Stage 2 chronic kidney disease N18.2 ; Exposure to hepatitis C Z20.5 ; Obstructive sleep apnea syndrome G47.33 and Type 2 diabetes mellitus with hyperglycemia E11.65 [facility] [address] [id number], [place] [address] Dec, [facility] MAN [address] [id number] [place] [address] Dec Diabetes E11.9 and Essential hypertension I10 [facility] [address] [id number], [place] [address] Nov, Diabetes E11.9 [facility] [address] [id number], [place] [address] Nov, Right foot pain M79.671 [facility] [address] [id number] [address] Nov, Right foot pain M79.671 [facility] MAN [address] [id number] [place] [address] Nov Diabetes E11.9 [facility] MAN [address] [id number] [place] [address] Nov Diabetes E11.9 [facility] [address] [id number] [place] [address] Nov, Dental examination Z01.20 [facility] [place] [address] [id number] [place] [address] 09 Nov Diabetes E11.9 ; Cocaine abuse F14.10 and Shingles (herpes zoster) polyneuropathy B02.23 [facility] [place] [address] [id number] [place] [address] Nov [facility] [address] [facility] [id number] [place] [address] October, [facility] [place] [address] [id number] [place] [address] October [facility] [place] [address] [id number] [place] [address] October Unintentional weight loss R63.4 [facility] [place] [address] [id number] [place] [address] October Abscess L02.91 [facility] [place] [address] [id number] [place] [address] October Diabetes E11.9 ; Unintentional weight loss R63.4 ; History of hematuria Z87.448 and Cocaine abuse F14.10 [facility] [place] [address] [id number] [place] [address] October Diabetes E11.9 [facility] [place] [address] [id number] [place] [address] October Essential hypertension I10 and Abscess L02.91 [facility] [place] [address] [id number] [place] [address] Jun [facility] [place] [address] [id number] [place] [address] May Breast cancer screening Z12.39 ; Diabetes E11.9 and Anxiety F41.9 [facility] [address] [id number] [place] [address] May, Diabetes E11.9 [facility] [place] [address] [id number] [place] [address] 15 May Diabetes E11.9 and Anemia D64.9 [facility] [place] [address] [id number] [place] [address] 14 May Anxiety F41.9 [facility] [place] [address] [id number] [place] [address] 08 May [facility] [place] [address] [id number] [place] [address] May Dysuria R30.0 [facility] [place] [address] [id number] [place] [address] 06 May [facility] [place] [address] [id number] [place] [address] 05 May Dysuria R30.0 and Vaginal itching L29.8 [place] [address] [place] [address] Apr, [facility] [place] [address] [id number] [place] [address] Apr Diabetes E11.9 ; Dysuria R30.0 ; Diabetic neuropathy E11.40 ; Anemia D64.9 and Vaginal discharge N89.8 [facility] [address], [place] [address] Jun, [address] [address] Jun, Anemia D64.9 ; Anxiety F41.9 ; Diabetes E11.9 and Diabetic neuropathy E11.40 [address] [id number] May, [facility] [id number] [place] [address] Apr, [address] [address] Apr, Anemia D64.9 ; Anxiety F41.9 ; Diabetes E11.9 and Diabetic neuropathy E11.40 [address] [address] Mar, Acute costochondritis M94.0 [address] [address] Mar, Bilateral low back pain without sciatica M54.5 and Bereavement Z63.[address] [place] [id number] [place] [id number] Mar, Obstructive chronic bronchitis with acute exacerbation J44.1 ; Herpes zoster without complication B02.9 and [place] N91.[address] [place] [id number] [place] [id number] Mar, [place] [id number] [place] [id number] Mar, [place] [id number] [place] [id number] Feb, History of recent traumatic injury of head V15.52 ; Diabetes type 2, uncontrolled 250.02 and Visual disturbance 368.[address] [place] [id number] [place] [id number] Feb, History of recent traumatic injury of head V15.52 ; Visual disturbance 368.9 and Diabetes type 2, uncontrolled 250.02 IMMUNIZATIONS No Known Immunizations SOCIAL HISTORY Never Assessed REASON FOR VISIT ankle pain right ankle, fx 2014 , feels like there is a fx of the foot during her stay at [facility] license of [facility] she feel last night. , feels like she has foot drop [facility] RN PLAN OF CARE Activity Details Follow Up prn Reason: VITAL SIGNS Height 63.50 in 2016-11-29 Weight 121.4 lbs 2016-11-29 Temperature 97.7 degrees Fahrenheit 2016-11-29 Heart Rate 98 bpm 2016-11-29 Respiratory Rate 18 2016-11-29 BMI 21.17 kg/m2 2016-11-29 Blood pressure systolic 120 mmHg 2016-11-29 Blood pressure diastolic 68 mmHg 2016-11-29 MEDICATIONS Medication Instructions Dosage Frequency Start Date End Date Duration Status Ropinirole HCl 1 MG 1 tablet 1 to 3 hours before bedtime 30 days Active Lisinopril 10 mg Orally Once a day 1 tablet 24h 30 days Active Simvastatin 40 MG Orally Once a day 1 tablet in the evening 24h Active MetFORMIN HCl ER 500 mg Orally 2 times a day 2 tablet 12h Active Lantus 100 unit/ml Subcutaneous Once a day at night 15 units Active Glucocard Expression Test - subcutaneously 2 times a day as directed 12h Nov, 30 days Active [place] 31G X 6 MM as directed 24h Apr, 30 days Active Glucocard Expression Test 1 glucometer as directed Nov, Active RESULTS No Results PROCEDURES No Known [...] infection 2004 Hospitalization History in [place] 2016 Hospitalization History Stroke 05/2017 Hospitalization History surgeries Hospitalization History Elevated B/S 07/2017
--- OUTSIDE RECORDS SUMMARY | 2018-05-13 11:19 | XMS REPORT ---
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 Name Role Phone SAFIA LANE Unavailable PROBLEMS Type Condition ICD9-CM Code XXN69-ID Code Onset Dates Condition Status SNOMED Code Problem Type 2 diabetes mellitus with hyperglycemia E11.65 Active 794705274625208 Problem Sleep apnea in adult G47.30 Active 63250804 Problem Hyperlipidemia, unspecified E78.5 Active 20492443 Problem Abnormal mammogram of right breast R92.8 Active 878305929 Problem Breast asymmetry N64.89 Active 623408084 Problem Moderately severe depression F32.2 Active 806055395 Problem Hypoglycemia associated with type 2 diabetes mellitus E11.649 Active 146429708 Problem Hypoglycemia E16.2 Active 052481005 Problem Cerebrovascular accident (CVA), unspecified mechanism I63.9 Active 053201403 Problem Essential hypertension I10 Active 41278217 Problem Cocaine abuse F14.10 Active 97532399 Problem Diabetic neuropathy E11.40 Active 599759814 Problem Stage 2 chronic kidney disease N18.2 Active 296852199 Problem Anxiety F41.9 Active 93318389 Problem Obstructive sleep apnea syndrome G47.33 Active 32147965 ALLERGIES Substance Reaction Event Type Date Status Phenergan nausea Drug Allergy Apr, Active Penicillin V Potassium nausea Drug Allergy Apr, Active Codeine Sulfate itch Drug Allergy Apr, Active ENCOUNTERS Encounter Location Date Diagnosis [facility] [address] [id number] [place] [address] [facility] [place] [address] [id number] [place] [address] Nov [facility] [address] [id number] [address] October [facility] [place] [address] [id number] [place] [address] October [facility] [place] [address] [id number] [place] [address] October Type 2 diabetes mellitus with hyperglycemia E11.65 and Surgical procedure on lower extremity within past 6 months Z98.890 [facility] [place] [address] [id number] [place] [address] October [facility] [place] [address] [id number] [place] [address] October [facility] [address] [facility] [id number] [place] [address] October, [facility] [place] [address] [id number] [place] [address] October Sleep apnea in adult G47.30 [facility] [place] [address] [id number] [place] [address] October Type 2 diabetes mellitus with hyperglycemia E11.65 [facility] [place] [address] [id number] [place] [address] Sep [facility] [place] [address] [id number] [place] [address] Sep Breast asymmetry N64.89 [facility] [place] [address] [id number] [place] [address] Sep [facility] [place] [address] [id number] [place] [address] Sep Type 2 diabetes mellitus with hyperglycemia E11.65 ; Cocaine abuse F14.10 and Open wound of right great toe, subsequent encounter S91.101D [facility] [place] [address] [id number] [place] [address] Sep [facility] [place] [address] [id number] [place] [address] Aug [facility] [place] [address] [id number] [place] [address] Aug [facility] [place] [address] [id number] [place] [address] Aug Type 2 diabetes mellitus with hyperglycemia E11.65 [facility] [place] [address] [id number] [place] [address] Aug [facility] [address] [facility] [id number] [place] [address] Aug, [facility] [place] [address] [id number] [place] [address] Jul [facility] [place] [address] [id number] [place] [address] Jul Diabetic neuropathy E11.40 ; Essential hypertension I10 and Type 2 diabetes mellitus with hyperglycemia E11.65 [facility] [place] [address] [id number] [place] [address] Jul [facility] [place] [address] [id number] [place] [address] Jul [facility] [place] [address] [id number] [place] [address] Jul [facility] [place] [address] [id number] [place] [address] Jul [facility] [place] [address] [id number] [place] [address] Jul [facility] [place] [address] [id number] [place] [address] Jul Type 2 diabetes mellitus with hyperglycemia E11.65 ; Open wound of right great toe, subsequent encounter S91.101D ; Essential hypertension I10 and Diabetic neuropathy E11.[address] [facility] [address] [id number] [place] [address] Jul, [facility] [place] [address] [id number] [place] [address] Jun [facility] [place] [address] [id number] [place] [address] Jun Type 2 diabetes mellitus with hyperglycemia E11.65 [facility] [place] [address] [id number] [place] [address] Jun [facility] [place] [address] [id number] [place] [address] Jun [facility] [place] [address] [id number] [place] [address] Jun Abnormal mammogram of right breast R92.8 and Breast asymmetry N64.89 [facility] [place] [address] [id number] [place] [address] 15 Jun [facility] [place] [address] [id number] [place] [address] Jun [facility] [place] [address] [id number] [place] [address] May Hypoglycemia E16.2 [facility] [place] [address] [id number] [place] [address] May Abnormal neurological exam R29.90 [facility] [place] [address] [id number] [place] [address] May [facility] [place] [address] [id number] [place] [address] May Type 2 diabetes mellitus with hyperglycemia E11.65 [facility] [place] [address] [id number] [place] [address] May Breast cancer screening Z12.31 and Hematuria, unspecified type R31.9 [facility] [place] [address] [id number] [place] [address] May [facility] [place] [address] [id number] [place] [address] May Type 2 diabetes mellitus with hyperglycemia E11.65 ; Essential hypertension I10 ; Moderately severe depression F32.2 and Confusion R41.0 [place] [address] [id number] [place] [address] May, [facility]Pop.it[facility] [address] [id number] [place] [address] 08 May Cerebrovascular accident (CVA), unspecified mechanism I63.9 ; Essential hypertension I10 ; Hyperlipidemia, unspecified E78.5 and Type 2 diabetes mellitus with hyperglycemia E11.65 [place] [address] [id number] [place] [address] May, [facility] [address] [facility] [id number] [place] [address] May, [facility] [place] [address] [id number] [place] [address] May [facility] [place] [address] [id number] [place] [address] May Diabetic neuropathy E11.40 and Diabetes E11.9 [facility] [place] [address] [id number] [place] [address] Apr [facility] [place] [address] [id number] [place] [address] Apr Subacute maxillary sinusitis J01.00 ; Hypoglycemia associated with type 2 diabetes mellitus E11.649 and Intractable episodic headache, unspecified headache type R51 [facility] [place] [address] [id number] [place] [address] Apr Diabetic neuropathy E11.40 and Anxiety F41.9 [facility] [place] [address] [id number] [place] [address] Apr [facility] [place] [address] [id number] [place] [address] Apr Type 2 diabetes mellitus with hyperglycemia E11.65 ; Subacute maxillary sinusitis J01.00 ; Diabetic neuropathy E11.40 and Sleep apnea in adult G47.30 [facility] [address] [facility] [id number] [place] [address] Apr, [facility] [place] [address] [id number] [place] [address] Apr [facility] [place] [address] [id number] [place] [address] Apr [facility] [place] [address] [id number] [place] [address] Apr Subacute maxillary sinusitis J01.00 [facility] [address] [facility] [id number] [place] [address] Apr, Right foot drop M21.371 [facility] [place] [address] [id number] [place] [address] Apr [facility] [place] [address] [id number] [place] [address] Mar [facility] [place] [address] [id number] [place] [address] Mar Essential hypertension I10 ; Type 2 diabetes mellitus with hyperglycemia E11.65 ; Encounter for immunization Z23 ; Cocaine abuse F14.10 and Hyperlipidemia, unspecified E78.5 [facility] [place] [address] [id number] [place] [address] Mar [place] [id number] [place] [address] Mar, [facility] [place] [address] [id number] [place] [address] Feb [facility]ITALX[facility] [place] [address] [id number] [place] [address] Feb Type 2 diabetes mellitus with hyperglycemia E11.65 and Acute right ankle pain M25.571 [facility] [place] [address] [id number] [place] [address] Feb Weight loss R63.4 and Anxiety F41.9 [place] [address]100[place], [place] [address] Jan, [place] [id number] [place] [address] Jan, [place] [id number] [place] [address] Jan, [place] [id number] [place] [address] Jan, Diabetes E11.9 [facility] [place] [address] [id number] [place] [address] Jan Sprain of right ankle, unspecified ligament, initial encounter S93.401A [facility] [place] [address] [id number] [place] [address] Jan Essential hypertension I10 ; Anxiety F41.9 and Type 2 diabetes mellitus with hyperglycemia E11.65 [facility] [address], [place] [address] Jan, Diabetes E11.9 [facility] [address], [place] [address] Jan, [facility] [id number] [place] [address] Jan, [address] [id number] [place] [address] Jan [facility] [address] [place] [address] Jan, [facility] [address] [place] [address] Jan, [facility] [address] [place] [address] Jan, [facility] [address] [place] [address] Jan, [facility] [address] [place] [address] Jan, Unintentional weight loss R63.4 ; Stage 2 chronic kidney disease N18.2 ; Exposure to hepatitis C Z20.5 ; Diabetic neuropathy E11.40 ; Obstructive sleep apnea syndrome G47.33 ; Essential hypertension I10 and Type 2 diabetes mellitus with hyperglycemia E11.65 [facility] [address]100[place], [place] [address] Jan, [facility] [address] [place] [address] Jan, Type 2 diabetes mellitus with hyperglycemia E11.65 ; Diabetic neuropathy E11.40 and Essential hypertension I10 [facility] [address]100[place], [place] [address] Dec, Diabetes E11.9 [facility] [address] [id number], [place] [address] Dec, [facility] [address]100[place], [place] [address] Dec, [facility] [address]100[place], [place] [address] Dec, [facility] [address] [place] [address] Dec, Dental examination Z01.20 [facility] [address]100[place], [place] [address] Dec, [facility] [address]100[place], [place] [address] Dec, Diabetes E11.9 [facility] [address]100[place], [place] [address] Dec, Stage 2 chronic kidney disease N18.2 ; Exposure to hepatitis C Z20.5 ; Obstructive sleep apnea syndrome G47.33 and Type 2 diabetes mellitus with hyperglycemia E11.65 [facility] [address] [id number], [place] [address] Dec, [facility] MAN [address] [id number] [place] [address] Dec Diabetes E11.9 and Essential hypertension I10 [facility] [address] [id number], [place] [address] Nov, Diabetes E11.9 [facility] [address] [id number], [place] [address] Nov, Right foot pain M79.671 [facility] [address] [id number] [address] Nov, Right foot pain M79.671 [facility] MAN [address] [id number] [place] [address] Nov Diabetes E11.9 [facility] [address] [id number] [place] [address] Nov Diabetes E11.9 [facility] [address] [id number] [place] [address] Nov, Dental examination Z01.20 [email or web address] [place] [address] [id number] [place] [address] 09 Nov Diabetes E11.9 ; Cocaine abuse F14.10 and Shingles (herpes zoster) polyneuropathy B02.23 [facility] [place] [address] [id number] [place] [address] Nov [facility] [address] [facility] [id number] [place] [address] October, [email or web address] [place] [address] [id number] [place] [address] October [email or web address] [place] [address] [id number] [place] [address] October Unintentional weight loss R63.4 [facility] [place] [address] [id number] [place] [address] October Abscess L02.91 [facility] [place] [address] [id number] [place] [address] October Diabetes E11.9 ; Unintentional weight loss R63.4 ; History of hematuria Z87.448 and Cocaine abuse F14.10 [facility] [place] [address] [id number] [place] [address] October Diabetes E11.9 [facility] [place] [address] [id number] [place] [address] October Essential hypertension I10 and Abscess L02.91 [facility] [place] [address] [id number] [place] [address] Jun [facility] [place] [address] [id number] [place] [address] May Breast cancer screening Z12.39 ; Diabetes E11.9 and Anxiety F41.9 [facility] [place] [address] [id number] [place] [address] May, Diabetes E11.9 [facility] [place] [address] [id number] [place] [address] May Diabetes E11.9 and Anemia D64.9 [facility] [place] [address] [id number] [place] [address] May Anxiety F41.9 [facility] [place] [address] [id number] [place] [address] May [facility] [place] [address] [id number] [place] [address] May Dysuria R30.0 [facility] [place] [address] [id number] [place] [address] May [facility] [place] [address] [id number] [place] [address] May Dysuria R30.0 and Vaginal itching L29.8 [place] [id number] [place] [address] Apr, [facility] [place] [address] [id number] [place] [address] Apr Diabetes E11.9 ; Dysuria R30.0 ; Diabetic neuropathy E11.40 ; Anemia D64.9 and Vaginal discharge N89.8 [place] [address] [place] [address] Jun, [address]00565100[place] [address] Jun, Anemia D64.9 ; Anxiety F41.9 ; Diabetes E11.9 and Diabetic neuropathy E11.40 [place] [address] [place] [id number] May, [place] [id number] [place] [address] Apr, [place] [id number] [address] Apr, Anemia D64.9 ; Anxiety F41.9 ; Diabetes E11.9 and Diabetic neuropathy E11.40 [address]65100[place] [address] Mar, Acute costochondritis M94.0 [place] [address] [place] [id number] Mar, Bilateral low back pain without sciatica M54.5 and Bereavement Z63.4 [place] [address] [place] [id number] Mar, Obstructive chronic bronchitis with acute exacerbation J44.1 ; Herpes zoster without complication B02.9 and [place] N91.2 [place] [address] [place] [id number] Mar, [place] [address] [place] [id number] Mar, [place] [address] [place] [id number] Feb, History of recent traumatic injury of head V15.52 ; Diabetes type 2, uncontrolled 250.02 and Visual disturbance 368.[address] [place] [id number] Feb, History of recent traumatic injury of head V15.52 ; Visual disturbance 368.9 and Diabetes type 2, uncontrolled 250.02 IMMUNIZATIONS No Known Immunizations SOCIAL HISTORY Never Assessed REASON FOR VISIT Headache/Possible meds reaction. ROSA Garcia PLAN OF CARE Activity Details Follow Up 1 day- Alicia Reason: VITAL SIGNS Height 63.50 in 2017-05-07 Temperature 97.1 degrees Fahrenheit 2017-05-07 Heart Rate 112 bpm 2017-05-07 Respiratory Rate 18 2017-05-07 Blood pressure systolic 160 mmHg 2017-05-07 Blood pressure diastolic 92 mmHg 2017-05-07 MEDICATIONS Medication Instructions Dosage Frequency Start Date End Date Duration Status MetFORMIN HCl ER 500 mg Orally 2 times a day 2 tablet 12h 30 days Active Neurontin 300 MG Orally Once a day 1 capsule 24h Jan, 30 day(s ) Active Lisinopril 20 MG Orally Once a day 1 tablet 24h Jan, 30 day(s) Active Ropinirole HCl 1 MG Orally at bedtime 1 tablet 1 to 3 hours before bedtime 30 days Active Glucocard Expression Test - as directed Nov, Not- Taking Tresiba FlexTouch 100 UNIT/ML Subcutaneous at bedtime Inject 10 units Jan, Not-Taking Multi Complete Not-Taking Glimepiride 4 MG Orally Once a day 1 tablet with breakfast or the first main meal of the day 24h Apr, Active Amoxicillin 500 MG Orally every 12 hrs 1 capsule 12h Active HydrOXYzine HCl 25 MG Orally 2 times a day as needed for anxieyt 1 tablet as needed Feb, 30 day(s) Active Pen [place] 31G X 6 MM as directed 24h Apr, 30 days Active Glucocard Expression Test - subcutaneously 2 times a day as directed Nov, 30 days Active Simvastatin 40 mg Orally Once a day 1 tablet in the evening 24h 90 days Active NovoLog Flexpen 100 UNIT/ML Subcutaneous 3 times a day 3 units 8h Jan, Not-Taking Fluticasone Propionate 50 MCG/ACT Nasally Once a day 1 spray in each nostril 24h 30 day(s) Active RESULTS Name Result Date Reference Range GLUCOSE FINGERSTICK (IN HOUSE) 2017-05-07 GLU FINGERSTICK 87 PC Lot # [id number] Exp date 05/2017 PROCEDURES Procedure Date Ordered Result Body Site GLUCOSE BLOOD TEST May 07, 2017 INSTRUCTIONS MEDICATIONS ADMINISTERED No Known [...] infection 2004 Hospitalization History in rehab at [facility] 2016 Hospitalization History Stroke 05/2017 Hospitalization History surgeries Hospitalization History Elevated B/S 07/2017 Hospitalization History [facility] - blood clot LRE 10/2017
--- OUTSIDE RECORDS SUMMARY | 2018-05-13 11:20 | XMS REPORT ---
Author Author BARRETT SCHRADER Organization [facility] Address [address] [place] [address] Care Team Providers Care Office Clerk Name Role Phone BARRETT SCHRADER Unavailable PROBLEMS Type Condition ICD9-CM Code WXZ48-TR Code Onset Dates Condition Status SNOMED Code Problem Type 2 diabetes mellitus with hyperglycemia E11.65 Active 553051445855565 Problem Sleep apnea in adult G47.30 Active 94980338 Problem Hyperlipidemia, unspecified E78.5 Active 62909060 Problem Abnormal mammogram of right breast R92.8 Active 762142124 Problem Breast asymmetry N64.89 Active 759167744 Problem Moderately severe depression F32.2 Active 453094766 Problem Hypoglycemia associated with type 2 diabetes mellitus E11.649 Active 140356905 Problem Hypoglycemia E16.2 Active 461880639 Problem Cerebrovascular accident (CVA), unspecified mechanism I63.9 Active 305840574 Problem Essential hypertension I10 Active 48324030 Problem Cocaine abuse F14.10 Active 09369512 Problem Diabetic neuropathy E11.40 Active 425629641 Problem Stage 2 chronic kidney disease N18.2 Active 405186355 Problem Anxiety F41.9 Active 05293690 Problem Obstructive sleep apnea syndrome G47.33 Active 52799808 ALLERGIES No Information ENCOUNTERS Encounter Location Date Diagnosis [facility] [place] [address] [id number] [place] [address] Sep Breast asymmetry N64.89 [facility] [place] [address] [id number] [place] [address] [facility] [address] [id number] [place] [address] Sep Type 2 diabetes mellitus with hyperglycemia E11.65 ; Cocaine abuse F14.10 and Open wound of right great toe, subsequent encounter S91.101D [facility] [address] [id number] [place] [address] Sep [facility] [place] [address] [id number] [place] [address] Aug [facility] [place] [address] [id number] [place] [address] Aug [facility] [place] [address] [id number] [place] [address] Aug Type 2 diabetes mellitus with hyperglycemia E11.65 [facility] [place] [address] [id number] [place] [address] Aug [facility] [address] [facility] [id number] [place] [address] Aug, [facility] [place] [address] [id number] [place] [address] Jul [facility] [place] [address] [id number] [place] [address] Jul Diabetic neuropathy E11.40 ; Essential hypertension I10 and Type 2 diabetes mellitus with hyperglycemia E11.65 [facility] [place] [address] [id number] [place] [address] Jul [facility] [place] [address] [id number] [place] [address] Jul [facility] [place] [address] [id number] [place] [address] Jul [facility] [place] [address] [id number] [place] [address] Jul [facility] [place] [address] [id number] [place] [address] Jul [facility] [place] [address] [id number] [place] [address] Jul Type 2 diabetes mellitus with hyperglycemia E11.65 ; Open wound of right great toe, subsequent encounter S91.101D ; Essential hypertension I10 and Diabetic neuropathy E11.[address] [facility] [address] [id number] [place] [id number] 05 Jul, 2017 [facility] [place] [address] [id number] [place] [address] Jun [facility] [place] [address] [id number] [place] [address] Jun Type 2 diabetes mellitus with hyperglycemia E11.65 [facility] [place] [address] [id number] [place] [address] Jun [facility] [place] [address] [id number] [place] [address] Jun [facility] [place] [address] [id number] [place] [address] 17 Jun Abnormal mammogram of right breast R92.8 and Breast asymmetry N64.89 [facility] [place] [address] [id number] [place] [address] 15 Jun [facility] [place] [address] [id number] [place] [address] Jun [facility] [place] [address] [id number] [place] [address] May Hypoglycemia E16.2 [facility] [place] [address] [id number] [place] [address] May Abnormal neurological exam R29.90 [facility] [place] [address] [id number] [place] [address] May [facility] [place] [address] [id number] [place] [address] May Type 2 diabetes mellitus with hyperglycemia E11.65 [facility] [place] [address] [id number] [place] [address] May Breast cancer screening Z12.31 and Hematuria, unspecified type R31.9 [facility] [place] [address] [id number] [place] [address] May [facility] [place] [address] [id number] [place] [address] May Type 2 diabetes mellitus with hyperglycemia E11.65 ; Essential hypertension I10 ; Moderately severe depression F32.2 and Confusion R41.0 [facility] [address] [id number] [place] [address] May, [facility] [place] [address] [id number] [place] [address] May Cerebrovascular accident (CVA), unspecified mechanism I63.9 ; Essential hypertension I10 ; Hyperlipidemia, unspecified E78.5 and Type 2 diabetes mellitus with hyperglycemia E11.65 [place] [address] [id number] [address] May, [place] [address] [address] May, [facility] [place] [address] [id number] [place] [address] May [facility] [place] [address] [id number] [place] [address] May Diabetic neuropathy E11.40 and Diabetes E11.9 [facility] [place] [address] [id number] [place] [address] Apr [facility] [place] [address] [id number] [place] [address] Apr Subacute maxillary sinusitis J01.00 ; Hypoglycemia associated with type 2 diabetes mellitus E11.649 and Intractable episodic headache, unspecified headache type R51 [facility] [place] [address] [id number] [place] [address] Apr Diabetic neuropathy E11.40 and Anxiety F41.9 [facility] [place] [address] [id number] [place] [address] Apr [facility] [place] [address] [id number] [place] [address] Apr Type 2 diabetes mellitus with hyperglycemia E11.65 ; Subacute maxillary sinusitis J01.00 ; Diabetic neuropathy E11.40 and Sleep apnea in adult G47.30 [facility] [address] [facility] [id number] [place] [address] Apr, [facility] [place] [address] [id number] [place] [address] 16 Apr [facility] [place] [address] [id number] [place] [address] Apr [facility] [place] [address] [id number] [place] [address] Apr Subacute maxillary sinusitis J01.00 [facility] [address] [address] Apr, Right foot drop M21.371 [facility] [place] [address] [id number] [place] [address] Apr [facility] [place] [address] [id number] [place] [address] Mar [facility] [place] [address] [id number] [place] [address] Mar Essential hypertension I10 ; Type 2 diabetes mellitus with hyperglycemia E11.65 ; Encounter for immunization Z23 ; Cocaine abuse F14.10 and Hyperlipidemia, unspecified E78.5 [facility] [place] [address] [id number] [place] [address] Mar [place] [address] [address] Mar, [facility] [place] [address] [id number] [place] [address] Feb [facility] [place] [address] [id number] [place] [address] Feb Type 2 diabetes mellitus with hyperglycemia E11.65 and Acute right ankle pain M25.571 [facility] [place] [address] [id number] [place] [address] Feb Weight loss R63.4 and Anxiety F41.9 [place] [address] [id number] [address] Jan, [facility] [id number] [place] [address] Jan, [facility] [id number] [place] [address] Jan, [facility] [address] [id number] [address] Jan, Diabetes E11.9 [facility] [place] [address] [id number] [place] [address] Jan Sprain of right ankle, unspecified ligament, initial encounter S93.401A [facility] [place] [address] [id number] [place] [address] Jan Essential hypertension I10 ; Anxiety F41.9 and Type 2 diabetes mellitus with hyperglycemia E11.65 [facility] [address]100[place] [address] Jan, Diabetes E11.9 [facility] [address] [place] [address] Jan, [facility] [address] [place] [address] Jan, [facility] [address] [id number] [place] [address] Jan [facility] [address] [place] [address] Jan, [facility] [address] [place] [address] Jan, [facility] [address] [place] [address] Jan, [facility] [address] [place] [address] Jan, [facility] [address] [place] [address] Jan, Unintentional weight loss R63.4 ; Stage 2 chronic kidney disease N18.2 ; Exposure to hepatitis C Z20.5 ; Diabetic neuropathy E11.40 ; Obstructive sleep apnea syndrome G47.33 ; Essential hypertension I10 and Type 2 diabetes mellitus with hyperglycemia E11.65 [facility] [address] [place] [address] Jan, [facility] [address]00565100[place] [address] Jan, Type 2 diabetes mellitus with hyperglycemia E11.65 ; Diabetic neuropathy E11.40 and Essential hypertension I10 [facility] [address]00565100[place] [address] Dec, Diabetes E11.9 [facility] [address] [place] [address] Dec, [facility] [address]00565100[place] [address] Dec, [facility] [address] [place] [address] Dec, [facility] [address] [place] [address] Dec, Dental examination Z01.20 [facility] [address]100[place], [place] [address] Dec, [facility] [address] [place] [address] Dec, Diabetes E11.9 [facility] [address]100[place] [address] Dec, Stage 2 chronic kidney disease N18.2 ; Exposure to hepatitis C Z20.5 ; Obstructive sleep apnea syndrome G47.33 and Type 2 diabetes mellitus with hyperglycemia E11.65 [facility] [address] [address] Dec, [facility] [place] [address] [id number] [place] [address] Dec Diabetes E11.9 and Essential hypertension I10 [facility] [address]100[place], [place] [address] Nov, Diabetes E11.9 [facility] [address], [place] [address] Nov, Right foot pain M79.671 [facility] [place] [address] [id number] [place] [address] Nov, Right foot pain M79.671 [facility] [place] [address] [id number] [place] [address] Nov Diabetes E11.9 [facility] [place] [address] [id number] [place] [address] Nov Diabetes E11.9 [facility] [address] [facility] [id number] [place] [address] Nov, Dental examination Z01.20 [facility] [place] [address] [id number] [place] [address] Nov Diabetes E11.9 ; Cocaine abuse F14.10 and Shingles (herpes zoster) polyneuropathy B02.23 [facility] [place] [address] [id number] [place] [address] Nov [facility] [address] [facility] [id number] [place] [address] October, [facility] [place] [address] [id number] [place] [address] October [facility] [place] [address] [id number] [place] [address] October Unintentional weight loss R63.4 [facility] [place] [address] [id number] [place] [address] October Abscess L02.91 [facility] [place] [address] [id number] [place] [address] October Diabetes E11.9 ; Unintentional weight loss R63.4 ; History of hematuria Z87.448 and Cocaine abuse F14.10 [facility] [place] [address] [id number] [place] [address] October Diabetes E11.9 [facility] [place] [address] [id number] [place] [address] October Essential hypertension I10 and Abscess L02.91 [facility] [place] [address] [id number] [place] [address] Jun [facility] [place] [address] [id number] [place] [address] May Breast cancer screening Z12.39 ; Diabetes E11.9 and Anxiety F41.9 [facility] [place] [address] [id number] [place] [id number] May, Diabetes E11.9 [facility] [place] [address] [id number] [place] [address] 15 May Diabetes E11.9 and Anemia D64.9 [facility] [place] [address] [id number] [place] [address] 14 May Anxiety F41.9 [facility] [place] [address] [id number] [place] [address] May [facility] [place] [address] [id number] [place] [address] May Dysuria R30.0 [facility] [place] [address] [id number] [place] [address] 06 May [facility] [place] [address] [id number] [place] [address] 05 May Dysuria R30.0 and Vaginal itching L29.8 [facility] [address] [id number] [address] Apr, [facility] [place] [address] [id number] [place] [address] Apr Diabetes E11.9 ; Dysuria R30.0 ; Diabetic neuropathy E11.40 ; Anemia D64.9 and Vaginal discharge N89.8 [facility] [address]100[place] [address] Jun, [place] [id number] [id number] Jun, Anemia D64.9 ; Anxiety F41.9 ; Diabetes E11.9 and Diabetic neuropathy E11.40 [place] [id number] [place] [id number] May, [facility] [id number] [place] [address] Apr, [place] [id number] [place] [id number] Apr, Anemia D64.9 ; Anxiety F41.9 ; Diabetes E11.9 and Diabetic neuropathy E11.40 [address] [place] [id number] [place] [id number] Mar, Acute costochondritis M94.[address] [id number] Mar, Bilateral low back pain without sciatica M54.5 and Bereavement Z63.[address] [id number] Mar, Obstructive chronic bronchitis with acute exacerbation J44.1 ; Herpes zoster without complication B02.9 and [place] N91.2 [place] [id number] [place] [id number] Mar, [place] [id number] [place] [id number] Mar, [place] [id number] [place] [id number] Feb, History of recent traumatic injury of head V15.52 ; Diabetes type 2, uncontrolled 250.02 and Visual disturbance 368.9 [address] [place] [id number] [place] [id number] Feb, History of recent traumatic injury of [...] Medical History detached retina Surgical History Hysterectomy 1999 Surgical History cyst on left breast removed X 2 Surgical History tubal ligation Surgical History Back surgery Surgical History Lt eye surgey 07/2017 Hospitalization History high blood glucose and kidney infection 2004 Hospitalization History in rehab at [place] 2017 Hospitalization History Stroke 05/2017 Hospitalization History surgeries Hospitalization History Elevated B/S 07/2017
--- OUTSIDE RECORDS SUMMARY | 2018-05-13 11:22 | XMS REPORT ---
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 Name Role Phone BARRETT SCHRADER Unavailable PROBLEMS Type Condition ICD9-CM Code XNS47-OH Code Onset Dates Condition Status SNOMED Code Problem Type 2 diabetes mellitus with hyperglycemia E11.65 Active 838293940178978 Problem Sleep apnea in adult G47.30 Active 01177494 Problem Hyperlipidemia, unspecified E78.5 Active 40737666 Problem Abnormal mammogram of right breast R92.8 Active 755715796 Problem Breast asymmetry N64.89 Active 339135672 Problem Moderately severe depression F32.2 Active 419101400 Problem Hypoglycemia associated with type 2 diabetes mellitus E11.649 Active 888806316 Problem Hypoglycemia E16.2 Active 346100550 Problem Cerebrovascular accident (CVA), unspecified mechanism I63.9 Active 326259320 Problem Essential hypertension I10 Active 41942587 Problem Cocaine abuse F14.10 Active 99512007 Problem Diabetic neuropathy E11.40 Active 372804548 Problem Stage 2 chronic kidney disease N18.2 Active 167314086 Problem Anxiety F41.9 Active 37547198 Problem Obstructive sleep apnea syndrome G47.33 Active 49466917 ALLERGIES No Information ENCOUNTERS Encounter Location Date Diagnosis [facility] [place] [address] [id number] [place] [address] Sep Type 2 diabetes mellitus with hyperglycemia E11.65 ; Cocaine abuse F14.10 and Open wound of right great toe, subsequent encounter S91.101D [facility] [address] [id number] [place] [address] Sep [facility] TechYENY [address] [id number] [place] [address] Aug [facility] [address] [id number] [place] [address] Aug [facility] [place] [address] [id number] [place] [address] Aug Type 2 diabetes mellitus with hyperglycemia E11.65 [facility] [place] [address] [id number] [place] [address] Aug [facility] [address] [facility] [id number] [place] [address] Aug, [facility] [place] [address] [id number] [place] [address] Jul [facility] [place] [address] [id number] [place] [address] Jul Diabetic neuropathy E11.40 ; Essential hypertension I10 and Type 2 diabetes mellitus with hyperglycemia E11.65 [facility] [place] [address] [id number] [place] [address] Jul [facility] [place] [address] [id number] [place] [address] Jul [facility] [place] [address] [id number] [place] [address] Jul [facility] [place] [address] [id number] [place] [address] Jul [facility] [place] [address] [id number] [place] [address] Jul [facility] [place] [address] [id number] [place] [address] Jul Type 2 diabetes mellitus with hyperglycemia E11.65 ; Open wound of right great toe, subsequent encounter S91.101D ; Essential hypertension I10 and Diabetic neuropathy E11.[address] [facility] [address] [id number] [place] [id number] Jul, [facility] [place] [address] [id number] [place] [address] Jun [facility] [place] [address] [id number] [place] [address] Jun Type 2 diabetes mellitus with hyperglycemia E11.65 [facility] [place] [address] [id number] [place] [address] Jun [facility] [place] [address] [id number] [place] [address] Jun [facility] [place] [address] [id number] [place] [address] Jun Abnormal mammogram of right breast R92.8 and Breast asymmetry N64.89 [facility] [place] [address] [id number] [place] [address] 15 Jun [facility] [place] [address] [id number] [place] [address] Jun [facility] [place] [address] [id number] [place] [address] May Hypoglycemia E16.2 [facility] [place] [address] [id number] [place] [address] May Abnormal neurological exam R29.90 [facility] [place] [address] [id number] [place] [address] May [facility] [place] [address] [id number] [place] [address] May Type 2 diabetes mellitus with hyperglycemia E11.65 [facility] [place] [address] [id number] [place] [address] May Breast cancer screening Z12.31 and Hematuria, unspecified type R31.9 [facility] [place] [address] [id number] [place] [address] May [facility] [place] [address] [id number] [place] [address] May Type 2 diabetes mellitus with hyperglycemia E11.65 ; Essential hypertension I10 ; Moderately severe depression F32.2 and Confusion R41.0 [facility] [address] [facility] [id number] [place] [address] May, [facility] [place] [address] [id number] [place] [address] May Cerebrovascular accident (CVA), unspecified mechanism I63.9 ; Essential hypertension I10 ; Hyperlipidemia, unspecified E78.5 and Type 2 diabetes mellitus with hyperglycemia E11.65 [facility] [address] [facility] [id number] [place] [address] May, [facility] [address] [facility] [id number] [place] [address] May, [facility] [place] [address] [id number] [place] [address] May [facility] [place] [address] [id number] [place] [address] May Diabetic neuropathy E11.40 and Diabetes E11.9 [facility] [place] [address] [id number] [place] [address] Apr [facility] [place] [address] [id number] [place] [address] Apr Subacute maxillary sinusitis J01.00 ; Hypoglycemia associated with type 2 diabetes mellitus E11.649 and Intractable episodic headache, unspecified headache type R51 [facility] [place] [address] [id number] [place] [address] Apr Diabetic neuropathy E11.40 and Anxiety F41.9 [facility] [place] [address] [id number] [place] [address] Apr [facility] [place] [address] [id number] [place] [address] Apr Type 2 diabetes mellitus with hyperglycemia E11.65 ; Subacute maxillary sinusitis J01.00 ; Diabetic neuropathy E11.40 and Sleep apnea in adult G47.30 [facility] [address] [facility] [id number] [place] [address] Apr, [facility] [place] [address] [id number] [place] [address] Apr [facility] [place] [address] [id number] [place] [address] Apr [facility] [place] [address] [id number] [place] [address] Apr Subacute maxillary sinusitis J01.00 [place] [address] [address] Apr, Right foot drop M21.371 [facility] [place] [address] [id number] [place] [address] Apr [facility] [place] [address] [id number] [place] [address] Mar [facility] [place] [address] [id number] [place] [address] Mar Essential hypertension I10 ; Type 2 diabetes mellitus with hyperglycemia E11.65 ; Encounter for immunization Z23 ; Cocaine abuse F14.10 and Hyperlipidemia, unspecified E78.5 [facility] [place] [address] [id number] [place] [address] Mar [place] [address] [address] Mar, [facility] [place] [address] [id number] [place] [address] Feb [facility] [place] [address] [id number] [place] [address] Feb Type 2 diabetes mellitus with hyperglycemia E11.65 and Acute right ankle pain M25.571 [facility] [place] [address] [id number] [place] [address] Feb Weight loss R63.4 and Anxiety F41.9 [place] [address] [address] Jan, [place] [address] [address] Jan, [place] [address] [id number] [address] Jan, [place] [address] [address] Jan, Diabetes E11.9 [facility] [place] [address] [id number] [place] [address] Jan Sprain of right ankle, unspecified ligament, initial encounter S93.401A [facility] [place] [address] [id number] [place] [address] Jan Essential hypertension I10 ; Anxiety F41.9 and Type 2 diabetes mellitus with hyperglycemia E11.65 [facility] [address] [place] [address] Jan, Diabetes E11.9 [facility] [id number] [place] [address] Jan, [facility] [id number] [place] [address] Jan, [facility] [place] [address] [id number] [place] [address] Jan [facility] [id number] [place] [address] Jan, [facility] [id number] [place] [address] Jan, [facility] [id number] [place] [address] Jan, [facility] [id number] [place] [address] Jan, [facility] [address] [place] [address] Jan, Unintentional weight loss R63.4 ; Stage 2 chronic kidney disease N18.2 ; Exposure to hepatitis C Z20.5 ; Diabetic neuropathy E11.40 ; Obstructive sleep apnea syndrome G47.33 ; Essential hypertension I10 and Type 2 diabetes mellitus with hyperglycemia E11.65 [facility] [id number] [place] [address] Jan, [facility] [id number] [place] [address] Jan, Type 2 diabetes mellitus with hyperglycemia E11.65 ; Diabetic neuropathy E11.40 and Essential hypertension I10 [facility] [address] [id number] [address] Dec, Diabetes E11.9 [facility] [address] [address] Dec, [facility] [address] [address] Dec, [facility] [address] [place] [address] Dec, [facility] [address] [address] Dec, Dental examination Z01.20 [facility] [address] [address] Dec, [facility] [address] [address] Dec, Diabetes E11.9 [facility] [address] [address] Dec, Stage 2 chronic kidney disease N18.2 ; Exposure to hepatitis C Z20.5 ; Obstructive sleep apnea syndrome G47.33 and Type 2 diabetes mellitus with hyperglycemia E11.65 [facility] [address] [id number] [address] Dec, [facility] [place] [address] [id number] [place] [address] Dec Diabetes E11.9 and Essential hypertension I10 [facility] [address] 08566B00565100[place] [address] Nov, Diabetes E11.9 [facility] [address] 08566B00565100[place] [address] Nov, Right foot pain M79.671 [facility] [address] [id number] [address] Nov, Right foot pain M79.671 [facility] [place] [address] [id number] [place] [address] Nov Diabetes E11.9 [facility] [place] [address] [id number] [place] [address] Nov Diabetes E11.9 [facility] [address] [facility] [id number] [place] [address] 16 Nov, 2016 Dental examination Z01.20 [facility] [place] [address] [id number] [place] [address] 09 Nov Diabetes E11.9 ; Cocaine abuse F14.10 and Shingles (herpes zoster) polyneuropathy B02.23 [facility] [place] [address] [id number] [place] [address] Nov [facility] [address] [facility] [id number] [place] [address] October, [facility] [place] [address] [id number] [place] [address] October [facility] [place] [address] [id number] [place] [address] October Unintentional weight loss R63.4 [facility] [place] [address] [id number] [place] [address] October Abscess L02.91 [facility] [place] [address] [id number] [place] [address] October Diabetes E11.9 ; Unintentional weight loss R63.4 ; History of hematuria Z87.448 and Cocaine abuse F14.10 [facility] [place] [address] [id number] [place] [address] October Diabetes E11.9 [facility] [place] [address] [id number] [place] [address] October Essential hypertension I10 and Abscess L02.91 [facility] [place] [address] [id number] [place] [address] Jun [facility] [place] [address] [id number] [place] [address] May Breast cancer screening Z12.39 ; Diabetes E11.9 and Anxiety F41.9 [facility] [address] [facility] [id number] [place] [id number] 16 May, 2016 Diabetes E11.9 [facility] [place] [address] [id number] [place] [address] 15 May Diabetes E11.9 and Anemia D64.9 [facility] [place] [address] [id number] [place] [address] 14 May Anxiety F41.9 [facility] [place] [address] [id number] [place] [address] 08 May [facility] [place] [address] [id number] [place] [address] May Dysuria R30.0 [facility] [place] [address] [id number] [place] [address] May [facility] [place] [address] [id number] [place] [address] May Dysuria R30.0 and Vaginal itching L29.8 [facility] [address] [id number] [address] Apr, [facility] [address] [id number] [place] [address] Apr Diabetes E11.9 ; Dysuria R30.0 ; Diabetic neuropathy E11.40 ; Anemia D64.9 and Vaginal discharge N89.8 [facility] [address] [address] Jun, [place] [id number] [id number] Jun, Anemia D64.9 ; Anxiety F41.9 ; Diabetes E11.9 and Diabetic neuropathy E11.40 [address]005[address]100[place] [address] May, [facility] [address] [id number] [address] Apr, [address] [id number] Apr, Anemia D64.9 ; Anxiety F41.9 ; Diabetes E11.9 and Diabetic neuropathy E11.[address] [place] [place] [id number] Mar, Acute costochondritis M94.0 [address] [address] [place] [id number] Mar, Bilateral low back pain without sciatica M54.5 and Bereavement Z63.[address] [id number] Mar, Obstructive chronic bronchitis with acute exacerbation J44.1 ; Herpes zoster without complication B02.9 and Neponset N91.2 [address] [place] [address] [place] [id number] Mar, [place] [address] [place] [id number] Mar, [place] [address] [place] [id number] Feb, History of recent traumatic injury of head V15.52 ; Diabetes type 2, uncontrolled 250.02 and Visual disturbance 368.[address] [id number] Feb, History of recent traumatic injury of head V15.52 ; Visual disturbance 368.9 and Diabetes type 2, uncontrolled 250.02 IMMUNIZATIONS No Known Immunizations SOCIAL HISTORY Never Assessed REASON FOR VISIT 1 week DM ed f/u attempt PLAN OF CARE VITAL SIGNS MEDICATIONS Unknown [...] infection 2005 Hospitalization History in [facility]hab [facility] 2017 Hospitalization History Stroke 05/2017 Hospitalization History surgeries Hospitalization History Elevated B/S 07/2017
--- OUTSIDE RECORDS SUMMARY | 2018-05-13 11:23 | XMS REPORT ---
Author Author BARRETT SCHRADER Organization [facility] Address [address] [place] [address] Care Team Providers Care Irrigator Name Role Phone BARRETT SCHRADER Unavailable PROBLEMS Type Condition ICD9-CM Code BNO29-JK Code Onset Dates Condition Status SNOMED Code Problem Type 2 diabetes mellitus with hyperglycemia E11.65 Active 342044761644990 Problem Sleep apnea in adult G47.30 Active 95868631 Problem Hyperlipidemia, unspecified E78.5 Active 36620708 Problem Abnormal mammogram of right breast R92.8 Active 793272200 Problem Breast asymmetry N64.89 Active 870144309 Problem Moderately severe depression F32.2 Active 194708228 Problem Hypoglycemia associated with type 2 diabetes mellitus E11.649 Active 892669019 Problem Hypoglycemia E16.2 Active 699825902 Problem Cerebrovascular accident (CVA), unspecified mechanism I63.9 Active 068394452 Problem Essential hypertension I10 Active 46149698 Problem Cocaine abuse F14.10 Active 11675137 Problem Diabetic neuropathy E11.40 Active 879188291 Problem Stage 2 chronic kidney disease N18.2 Active 594663883 Problem Anxiety F41.9 Active 49700737 Problem Obstructive sleep apnea syndrome G47.33 Active 81209793 ALLERGIES No Information ENCOUNTERS Encounter Location Date Diagnosis [email or web address] [place] [address] [id number] [place] [address] Sep Type 2 diabetes mellitus with hyperglycemia E11.65 ; Cocaine abuse F14.10 and Open wound of right great toe, subsequent encounter S91.101D [facility] [address] [id number] [place] [address] Sep [facility] [address] [id number] [place] [address] Aug [facility] [address] [id number] [place] [address] Aug [facility] [place] [address] [id number] [place] [address] Aug Type 2 diabetes mellitus with hyperglycemia E11.65 [facility] [place] [address] [id number] [place] [address] Aug [facility] [address] [facility] [id number] [place] [address] Aug, [facility] [place] [address] [id number] [place] [address] Jul [facility] [place] [address] [id number] [place] [address] Jul Diabetic neuropathy E11.40 ; Essential hypertension I10 and Type 2 diabetes mellitus with hyperglycemia E11.65 [facility] [place] [address] [id number] [place] [address] Jul [facility] [place] [address] [id number] [place] [address] Jul [facility] [place] [address] [id number] [place] [address] Jul [facility] [place] [address] [id number] [place] [address] Jul [facility] [place] [address] [id number] [place] [address] Jul [facility] [place] [address] [id number] [place] [address] Jul Type 2 diabetes mellitus with hyperglycemia E11.65 ; Open wound of right great toe, subsequent encounter S91.101D ; Essential hypertension I10 and Diabetic neuropathy E11.[address] [facility] [address] [id number] [place] [id number] Jul, [facility] [place] [address] [id number] [place] [address] Jun [facility] [place] [address] [id number] [place] [address] Jun Type 2 diabetes mellitus with hyperglycemia E11.65 [facility] [place] [address] [id number] [place] [address] Jun [facility] [place] [address] [id number] [place] [address] Jun [facility] [place] [address] [id number] [place] [address] Jun Abnormal mammogram of right breast R92.8 and Breast asymmetry N64.89 [facility] [place] [address] [id number] [place] [address] 15 Jun [facility] [place] [address] [id number] [place] [address] Jun [facility] [place] [address] [id number] [place] [address] May Hypoglycemia E16.2 [facility] [place] [address] [id number] [place] [address] May Abnormal neurological exam R29.90 [facility] [place] [address] [id number] [place] [address] May [facility] [place] [address] [id number] [place] [address] May Type 2 diabetes mellitus with hyperglycemia E11.65 [facility] [place] [address] [id number] [place] [address] May Breast cancer screening Z12.31 and Hematuria, unspecified type R31.9 [facility] [place] [address] [id number] [place] [address] May [facility] [place] [address] [id number] [place] [address] May Type 2 diabetes mellitus with hyperglycemia E11.65 ; Essential hypertension I10 ; Moderately severe depression F32.2 and Confusion R41.0 [facility] [address] [facility] [id number] [place] [address] May, [facility] [place] [address] [id number] [place] [address] May Cerebrovascular accident (CVA), unspecified mechanism I63.9 ; Essential hypertension I10 ; Hyperlipidemia, unspecified E78.5 and Type 2 diabetes mellitus with hyperglycemia E11.65 [facility] [address] [facility] [id number] [place] [address] May, [facility] [address] [facility] [id number] [place] [address] May, [facility] [place] [address] [id number] [place] [address] May [facility] [place] [address] [id number] [place] [address] May Diabetic neuropathy E11.40 and Diabetes E11.9 [facility] [place] [address] [id number] [place] [address] Apr [facility] [place] [address] [id number] [place] [address] Apr Subacute maxillary sinusitis J01.00 ; Hypoglycemia associated with type 2 diabetes mellitus E11.649 and Intractable episodic headache, unspecified headache type R51 [facility] [place] [address] [id number] [place] [address] Apr Diabetic neuropathy E11.40 and Anxiety F41.9 [facility] [place] [address] [id number] [place] [address] Apr [facility] [place] [address] [id number] [place] [address] Apr Type 2 diabetes mellitus with hyperglycemia E11.65 ; Subacute maxillary sinusitis J01.00 ; Diabetic neuropathy E11.40 and Sleep apnea in adult G47.30 [facility] [address] [facility] [id number] [place] [address] Apr, [facility] [place] [address] [id number] [place] [address] Apr [facility] [place] [address] [id number] [place] [address] Apr [facility] [place] [address] [id number] [place] [address] Apr Subacute maxillary sinusitis J01.00 [place] [address] [address] Apr, Right foot drop M21.371 [facility] [place] [address] [id number] [place] [address] Apr [facility] [place] [address] [id number] [place] [address] Mar [facility] [place] [address] [id number] [place] [address] Mar Essential hypertension I10 ; Type 2 diabetes mellitus with hyperglycemia E11.65 ; Encounter for immunization Z23 ; Cocaine abuse F14.10 and Hyperlipidemia, unspecified E78.5 [facility] [place] [address] [id number] [place] [address] Mar [place] [address] [address] Mar, [facility] [place] [address] [id number] [place] [address] Feb [facility] [place] [address] [id number] [place] [address] Feb Type 2 diabetes mellitus with hyperglycemia E11.65 and Acute right ankle pain M25.571 [facility] [place] [address] [id number] [place] [address] Feb Weight loss R63.4 and Anxiety F41.9 [place] [address] [address] Jan, [place] [address] [address] Jan, [place] [address] [address] [id number] [address] Jan, [place] [address] [address] Jan, Diabetes E11.9 [facility] [place] [address] [id number] [place] [address] Jan Sprain of right ankle, unspecified ligament, initial encounter S93.401A [facility] MAN [address] [id number] [place] [address] Jan Essential hypertension I10 ; Anxiety F41.9 and Type 2 diabetes mellitus with hyperglycemia E11.65 [facility] [address] [place] [address] Jan, Diabetes E11.9 [facility] [id number] [place] [address] Jan, [facility] [id number] [place] [address] Jan, [facility] MAN [address] [id number] [place] [address] Jan [facility] [id number] [place] [address] Jan, [facility] [id number] [place] [address] Jan, [facility] [id number] [place] [address] Jan, [facility] [id number] [place] [address] Jan, [facility] [address] [place] [address] Jan, Unintentional weight loss R63.4 ; Stage 2 chronic kidney disease N18.2 ; Exposure to hepatitis C Z20.5 ; Diabetic neuropathy E11.40 ; Obstructive sleep apnea syndrome G47.33 ; Essential hypertension I10 and Type 2 diabetes mellitus with hyperglycemia E11.65 [facility] [id number] [place] [address] Jan, [facility] [id number] [place] [address] Jan, Type 2 diabetes mellitus with hyperglycemia E11.65 ; Diabetic neuropathy E11.40 and Essential hypertension I10 [facility] [address] [id number] [address] Dec, Diabetes E11.9 [facility] [address] [address] Dec, [facility] [address] [address] Dec, [facility] [address] [place] [address] Dec, [facility] [address] [address] Dec, Dental examination Z01.20 [facility] [address]65[address] [address] Dec, [facility] [address] [address] Dec, Diabetes E11.9 [facility] [address] [address] Dec, Stage 2 chronic kidney disease N18.2 ; Exposure to hepatitis C Z20.5 ; Obstructive sleep apnea syndrome G47.33 and Type 2 diabetes mellitus with hyperglycemia E11.65 [facility] [address] [id number] [address] Dec, [facility] [address] [id number] [place] [address] Dec Diabetes E11.9 and Essential hypertension I10 [facility] [address] [id number] [address] Nov, Diabetes E11.9 [facility] [address] [id number] [address] Nov, Right foot pain M79.671 [facility] [address] [address] [id number] [place] [address] Nov, Right foot pain M79.671 [facility] [place] [address] [id number] [place] [address] Nov Diabetes E11.9 [facility] [place] [address] [id number] [place] [address] Nov Diabetes E11.9 [facility] [address] [facility] [id number] [place] [id number] 16 Nov, 2016 Dental examination Z01.20 [facility] [place] [address] [id number] [place] [address] 09 Nov Diabetes E11.9 ; Cocaine abuse F14.10 and Shingles (herpes zoster) polyneuropathy B02.23 [facility] [place] [address] [id number] [place] [address] Nov [facility] [address] [facility] [id number] [place] [address] October, [facility] [place] [address] [id number] [place] [address] October [facility] [place] [address] [id number] [place] [address] October Unintentional weight loss R63.4 [facility] [place] [address] [id number] [place] [address] October Abscess L02.91 [facility] [place] [address] [id number] [place] [address] October Diabetes E11.9 ; Unintentional weight loss R63.4 ; History of hematuria Z87.448 and Cocaine abuse F14.10 [facility] [place] [address] [id number] [place] [address] October Diabetes E11.9 [facility] [place] [address] [id number] [place] [address] October Essential hypertension I10 and Abscess L02.91 [facility] [place] [address] [id number] [place] [address] Jun [facility] [place] [address] [id number] [place] [address] May Breast cancer screening Z12.39 ; Diabetes E11.9 and Anxiety F41.9 [facility] [address] [facility] [id number] [place] [id number] 16 May, 2016 Diabetes E11.9 [facility] [place] [address] [id number] [place] [address] 15 May Diabetes E11.9 and Anemia D64.9 [facility] [place] [address] [id number] [place] [address] 14 May Anxiety F41.9 [facility] [place] [address] [id number] [place] [address] 08 May [facility] [place] [address] [id number] [place] [address] May Dysuria R30.0 [facility] [place] [address] [id number] [place] [address] May [facility] [place] [address] [id number] [place] [address] May Dysuria R30.0 and Vaginal itching L29.8 [facility] [address] [id number] [address] Apr, [facility] [address] [id number] [place] [address] Apr Diabetes E11.9 ; Dysuria R30.0 ; Diabetic neuropathy E11.40 ; Anemia D64.9 and Vaginal discharge N89.8 [facility] [address]005[address] [address] Jun, [place] [id number] [id number] Jun, Anemia D64.9 ; Anxiety F41.9 ; Diabetes E11.9 and Diabetic neuropathy E11.40 [address] [id number] May, [facility] [address] [id number] [address] Apr, [address] [id number] Apr, Anemia D64.9 ; Anxiety F41.9 ; Diabetes E11.9 and Diabetic neuropathy E11.40 [place] [id number] [place] [id number] Mar, Acute costochondritis M94.0 [place] [id number] [place] [id number] Mar, Bilateral low back pain without sciatica M54.5 and Bereavement Z63.[address] [id number] Mar, Obstructive chronic bronchitis with acute exacerbation J44.1 ; Herpes zoster without complication B02.9 and [place] N91.2 [place] [address] [place] [id number] Mar, [place] [address] [place] [id number] Mar, [place] [address] [place] [id number] Feb, History of recent traumatic injury of head V15.52 ; Diabetes type 2, uncontrolled 250.02 and Visual disturbance 368.[address] [address] Feb, History of recent traumatic injury of head V15.52 ; Visual disturbance 368.9 and Diabetes type 2, uncontrolled 250.02 IMMUNIZATIONS No Known Immunizations SOCIAL HISTORY Never Assessed REASON FOR VISIT DM mgnt PLAN OF CARE VITAL SIGNS MEDICATIONS Unknown [...] infection 2004 Hospitalization History in rehab at [place] 2016 Hospitalization History Stroke 05/2017 Hospitalization History surgeries Hospitalization History Elevated B/S 07/2017
--- OUTSIDE RECORDS SUMMARY | 2018-05-13 11:24 | XMS REPORT ---
Author Author CHRIS BECKWITH [facility] Address [address] [place] [address] Care Team Providers Care Supervisor Telephone Answering Service Name Role Phone CHRIS BECKWITH Unavailable PROBLEMS Type Condition ICD9-CM Code NDA78-KD Code Onset Dates Condition Status SNOMED Code Problem Type 2 diabetes mellitus with hyperglycemia E11.65 Active [id number] Problem Sleep apnea in adult G47.30 Active 28981163 Problem Hyperlipidemia, unspecified E78.5 Active 61540736 Problem Abnormal mammogram of right breast R92.8 Active 565134045 Problem Breast asymmetry N64.89 Active 518279374 Problem Moderately severe depression F32.2 Active 984630832 Problem Hypoglycemia associated with type 2 diabetes mellitus E11.649 Active 510302794 Problem Hypoglycemia E16.2 Active 527659055 Problem Cerebrovascular accident (CVA), unspecified mechanism I63.9 Active 530803232 Problem Essential hypertension I10 Active 87691849 Problem Cocaine abuse F14.10 Active 48105883 Problem Diabetic neuropathy E11.40 Active 147890451 Problem Stage 2 chronic kidney disease N18.2 Active 689747650 Problem Anxiety F41.9 Active 26127992 Problem Obstructive sleep apnea syndrome G47.33 Active 07120748 ALLERGIES No Information ENCOUNTERS Encounter Location Date Diagnosis [facility] [address] [id number] [place] [address] Nov [facility] [address] [id number] [place] [address] Nov [facility] [address] [id number] [place] [address] Nov [facility] [address] [id number] [place] [address] October [facility] [address] [id number] [place] [address] October [facility] [place] [address] [id number] [place] [address] October Type 2 diabetes mellitus with hyperglycemia E11.65 and Surgical procedure on lower extremity within past 6 months Z98.890 [facility] [place] [address] [id number] [place] [address] October [facility] [place] [address] [id number] [place] [address] October [facility] [address] [facility] [id number] [place] [address] October, [facility] [place] [address] [id number] [place] [address] October Sleep apnea in adult G47.30 [facility] [place] [address] [id number] [place] [address] October Type 2 diabetes mellitus with hyperglycemia E11.65 [facility] [place] [address] [id number] [place] [address] Sep [facility] [place] [address] [id number] [place] [address] Sep Breast asymmetry N64.89 [facility] [place] [address] [id number] [place] [address] Sep [facility] [place] [address] [id number] [place] [address] Sep Type 2 diabetes mellitus with hyperglycemia E11.65 ; Cocaine abuse F14.10 and Open wound of right great toe, subsequent encounter S91.101D [facility] [place] [address] [id number] [place] [address] Sep [facility] [place] [address] [id number] [place] [address] Aug [facility] [place] [address] [id number] [place] [address] Aug [facility] [place] [address] [id number] [place] [address] Aug Type 2 diabetes mellitus with hyperglycemia E11.65 [facility] [place] [address] [id number] [place] [address] Aug [facility] [address] [facility] [id number] [place] [address] Aug, [facility] [place] [address] [id number] [place] [address] Jul [facility] [place] [address] [id number] [place] [address] Jul Diabetic neuropathy E11.40 ; Essential hypertension I10 and Type 2 diabetes mellitus with hyperglycemia E11.65 [facility] [place] [address] [id number] [place] [address] Jul [facility] [place] [address] [id number] [place] [address] Jul [facility] [place] [address] [id number] [place] [address] Jul [facility] [place] [address] [id number] [place] [address] Jul [facility] [place] [address] [id number] [place] [address] Jul [facility] [place] [address] [id number] [place] [address] Jul Type 2 diabetes mellitus with hyperglycemia E11.65 ; Open wound of right great toe, subsequent encounter S91.101D ; Essential hypertension I10 and Diabetic neuropathy E11.40 [facility] [id number] [place] [id number] Jul, [facility] [place] [address] [id number] [place] [address] Jun [facility] [place] [address] [id number] [place] [address] Jun Type 2 diabetes mellitus with hyperglycemia E11.65 [facility] [place] [address] [id number] [place] [address] Jun [facility] [place] [address] [id number] [place] [address] Jun [facility] [place] [address] [id number] [place] [address] Jun Abnormal mammogram of right breast R92.8 and Breast asymmetry N64.89 [facility] [place] [address] [id number] [place] [address] 15 Jun [facility] [place] [address] [id number] [place] [address] Jun [facility] [place] [address] [id number] [place] [address] May Hypoglycemia E16.2 [facility] [place] [address] [id number] [place] [address] May Abnormal neurological exam R29.90 [facility] [place] [address] [id number] [place] [address] May [facility] [place] [address] [id number] [place] [address] May Type 2 diabetes mellitus with hyperglycemia E11.65 [facility] [place] [address] [id number] [place] [address] May Breast cancer screening Z12.31 and Hematuria, unspecified type R31.9 [facility] [place] [address] [id number] [place] [address] May [facility] [place] [address] [id number] [place] [address] May Type 2 diabetes mellitus with hyperglycemia E11.65 ; Essential hypertension I10 ; Moderately severe depression F32.2 and Confusion R41.0 [facility] [address] [id number] [place] [address] May, [facility] [address] [id number] [place] [address] May Cerebrovascular accident (CVA), unspecified mechanism I63.9 ; Essential hypertension I10 ; Hyperlipidemia, unspecified E78.5 and Type 2 diabetes mellitus with hyperglycemia E11.65 [place] [address] [address] May, [facility] [address] [facility] [id number] [place] [address] May, [facility] [place] [address] [id number] [place] [address] May [facility] [place] [address] [id number] [place] [address] May Diabetic neuropathy E11.40 and Diabetes E11.9 [facility] [place] [address] [id number] [place] [address] Apr [facility] [place] [address] [id number] [place] [address] Apr Subacute maxillary sinusitis J01.00 ; Hypoglycemia associated with type 2 diabetes mellitus E11.649 and Intractable episodic headache, unspecified headache type R51 [facility] [place] [address] [id number] [place] [address] Apr Diabetic neuropathy E11.40 and Anxiety F41.9 [facility] [place] [address] [id number] [place] [address] Apr [facility] [place] [address] [id number] [place] [address] Apr Type 2 diabetes mellitus with hyperglycemia E11.65 ; Subacute maxillary sinusitis J01.00 ; Diabetic neuropathy E11.40 and Sleep apnea in adult G47.30 [facility] [address] [facility] [id number] [place] [address] Apr, [facility] [place] [address] [id number] [place] [address] Apr [facility] [place] [address] [id number] [place] [address] Apr [facility] [place] [address] [id number] [place] [address] Apr Subacute maxillary sinusitis J01.00 [facility] [address] [facility] [id number] [place] [address] Apr, Right foot drop M21.371 [facility] [place] [address] [id number] [place] [address] Apr [facility] [place] [address] [id number] [place] [address] Mar [facility] [place] [address] [id number] [place] [address] Mar Essential hypertension I10 ; Type 2 diabetes mellitus with hyperglycemia E11.65 ; Encounter for immunization Z23 ; Cocaine abuse F14.10 and Hyperlipidemia, unspecified E78.5 [facility] [place] [address] [id number] [place] [address] Mar [place] [id number] [place] [address] Mar, [facility] [place] [address] [id number] [place] [address] Feb [facility] [place] [address] [id number] [place] [address] Feb Type 2 diabetes mellitus with hyperglycemia E11.65 and Acute right ankle pain M25.571 [facility] [place] [address] [id number] [place] [address] Feb Weight loss R63.4 and Anxiety F41.9 [place] [address], [place] [address] Jan, [place] [id number] [place] [address] Jan, [place] [id number] [place] [address] Jan, [place] [id number] [place] [address] Jan, Diabetes E11.9 [facility] [place] [address] [id number] [place] [address] Jan Sprain of right ankle, unspecified ligament, initial encounter S93.401A [facility] [place] [address] [id number] [place] [address] Jan Essential hypertension I10 ; Anxiety F41.9 and Type 2 diabetes mellitus with hyperglycemia E11.65 [facility] [address], [place] [address] Jan, Diabetes E11.9 [facility] [address]005[address]100[place], [place] [address] Jan, [facility] [address] [place] [address] Jan, [address] [id number] [place] [address] Jan [facility] [address] [place] [address] Jan, [facility] [address] [place] [address] Jan, [facility] [address] [place] [address] Jan, [facility] [address] [place] [address] Jan, [facility] [address] [place] [address] Jan, Unintentional weight loss R63.4 ; Stage 2 chronic kidney disease N18.2 ; Exposure to hepatitis C Z20.5 ; Diabetic neuropathy E11.40 ; Obstructive sleep apnea syndrome G47.33 ; Essential hypertension I10 and Type 2 diabetes mellitus with hyperglycemia E11.65 [facility] [address], [place] [address] Jan, [facility] [address] [place] [address] Jan, Type 2 diabetes mellitus with hyperglycemia E11.65 ; Diabetic neuropathy E11.40 and Essential hypertension I10 [facility] [address], [place] [address] Dec, Diabetes E11.9 [facility] [address] [id number], [place] [address] Dec, [facility] [address], [place] [address] Dec, [facility] [address], [place] [address] Dec, [facility] [address], [place] [address] Dec, Dental examination Z01.20 [facility] [address], [place] [address] Dec, [facility] [address], [place] [address] Dec, Diabetes E11.9 [facility] [address], [place] [address] Dec, Stage 2 chronic kidney disease N18.2 ; Exposure to hepatitis C Z20.5 ; Obstructive sleep apnea syndrome G47.33 and Type 2 diabetes mellitus with hyperglycemia E11.65 [facility] [address] [id number], [place] [address] Dec, [facility] [address] [id number] [place] [address] Dec Diabetes E11.9 and Essential hypertension I10 [facility] [address] [id number], [place] [address] Nov, Diabetes E11.9 [facility] [address] [id number], [place] [address] Nov, Right foot pain M79.671 [facility] [address] [id number] [address] Nov, Right foot pain M79.671 [facility] [place] [address] [id number] [place] [address] Nov Diabetes E11.9 [facility] [address] [id number] [place] [address] Nov Diabetes E11.9 [facility] [address] [id number] [place] [address] Nov, Dental examination Z01.20 [facility] [place] [address] [id number] [place] [address] 09 Nov Diabetes E11.9 ; Cocaine abuse F14.10 and Shingles (herpes zoster) polyneuropathy B02.23 [facility] [place] [address] [id number] [place] [address] Nov [facility] [address] [facility] [id number] [place] [address] October, [facility] [place] [address] [id number] [place] [address] October [facility] [place] [address] [id number] [place] [address] October Unintentional weight loss R63.4 [facility] [place] [address] [id number] [place] [address] October Abscess L02.91 [facility] [facility] [place] [address] [id number] [place] [address] October Diabetes E11.9 ; Unintentional weight loss R63.4 ; History of hematuria Z87.448 and Cocaine abuse F14.10 [facility] [facility] [place] [address] [id number] [place] [address] October Diabetes E11.9 [facility] [facility] [place] [address] [id number] [place] [address] October Essential hypertension I10 and Abscess L02.91 [facility] [place] [address] [id number] [place] [address] Jun [facility] [place] [address] [id number] [place] [address] May Breast cancer screening Z12.39 ; Diabetes E11.9 and Anxiety F41.9 [facility] [place] [address] [facility] [id number] [place] [address] May, Diabetes E11.9 [facility] [place] [address] [id number] [place] [address] 15 May Diabetes E11.9 and Anemia D64.9 [facility] [place] [address] [id number] [place] [address] 14 May Anxiety F41.9 [facility] [place] [address] [id number] [place] [address] 08 May [facility] [place] [address] [id number] [place] [address] May Dysuria R30.0 [facility] [place] [address] [id number] [place] [address] May [facility] [place] [address] [id number] [place] [address] May Dysuria R30.0 and Vaginal itching L29.8 [place] [address], [place] [address] Apr, [facility] [place] [address] [id number] [place] [address] Apr Diabetes E11.9 ; Dysuria R30.0 ; Diabetic neuropathy E11.40 ; Anemia D64.9 and Vaginal discharge N89.8 [place] [address], [place] [address] Jun, [place] [address] [id number] [id number] Jun, Anemia D64.9 ; Anxiety F41.9 ; Diabetes E11.9 and Diabetic neuropathy E11.[address] [id number] May, [facility] [address] [place] [address] Apr, [place] [id number] [id number] Apr, Anemia D64.9 ; Anxiety F41.9 ; Diabetes E11.9 and Diabetic neuropathy E11.[address] [id number] Mar, Acute costochondritis M94.0 [address] [id number] Mar, Bilateral low back pain without sciatica M54.5 and Bereavement Z63.4 [address] [id number] [place] [id number] Mar, Obstructive chronic bronchitis with acute exacerbation J44.1 ; Herpes zoster without complication B02.9 and [place] N91.2 [id number] [place] [id number] Mar, [id number] [place] [id number] Mar, [id number] [place] [id number] Feb, History of recent traumatic injury of head V15.52 ; Diabetes type 2, uncontrolled 250.02 and Visual disturbance 368.[address] [place] [id number] Feb, History of recent traumatic injury of head V15.52 ; Visual disturbance 368.9 and Diabetes type 2, uncontrolled 250.02 IMMUNIZATIONS No Known Immunizations SOCIAL HISTORY Never Assessed REASON FOR VISIT BS ck attempt PLAN OF CARE VITAL SIGNS MEDICATIONS [...] infection 2005 Hospitalization History in rehab at [facility] 2017 Hospitalization History Stroke 05/2017 Hospitalization History surgeries Hospitalization History Elevated B/S 07/2017 Hospitalization History [facility] - blood clot LRE 10/2017
--- OUTSIDE RECORDS SUMMARY | 2018-05-13 11:25 | XMS REPORT ---
Author Author CHRIS BECKWITH [facility] Address [address] [place] [address] Care Team Providers Care Supervisor Braiding Name Role Phone CHRIS BECKWITH Unavailable PROBLEMS Type Condition ICD9-CM Code ASZ99-CW Code Onset Dates Condition Status SNOMED Code Problem Type 2 diabetes mellitus with hyperglycemia E11.65 Active [id number] Problem Sleep apnea in adult G47.30 Active 80079642 Problem Hyperlipidemia, unspecified E78.5 Active 60946031 Problem Abnormal mammogram of right breast R92.8 Active 575775278 Problem Breast asymmetry N64.89 Active 739710286 Problem Moderately severe depression F32.2 Active 097960838 Problem Hypoglycemia associated with type 2 diabetes mellitus E11.649 Active 771669499 Problem Hypoglycemia E16.2 Active 040875063 Problem Cerebrovascular accident (CVA), unspecified mechanism I63.9 Active 735606549 Problem Essential hypertension I10 Active 23067145 Problem Cocaine abuse F14.10 Active 57111767 Problem Diabetic neuropathy E11.40 Active 907954937 Problem Stage 2 chronic kidney disease N18.2 Active 613840316 Problem Anxiety F41.9 Active 68073896 Problem Obstructive sleep apnea syndrome G47.33 Active 74836672 ALLERGIES No Information ENCOUNTERS Encounter Location Date Diagnosis [facility] [address] [id number] [place] [address] Nov [facility] [address] [id number] [place] [address] Nov [facility] [address] [id number] [place] [address] October [facility] [address] [id number] [place] [address] October [facility] [address] [id number] [place] [address] October Type 2 diabetes mellitus with hyperglycemia E11.65 and Surgical procedure on lower extremity within past 6 months Z98.890 [facility] [place] [address] [id number] [place] [address] October [facility] [place] [address] [id number] [place] [address] October [facility] [address] [facility] [id number] [place] [address] October, [facility] [place] [address] [id number] [place] [address] October Sleep apnea in adult G47.30 [facility] [place] [address] [id number] [place] [address] October Type 2 diabetes mellitus with hyperglycemia E11.65 [facility] [place] [address] [id number] [place] [address] Sep [facility] [place] [address] [id number] [place] [address] Sep Breast asymmetry N64.89 [facility] [place] [address] [id number] [place] [address] Sep [facility] [place] [address] [id number] [place] [address] Sep Type 2 diabetes mellitus with hyperglycemia E11.65 ; Cocaine abuse F14.10 and Open wound of right great toe, subsequent encounter S91.101D [facility] [place] [address] [id number] [place] [address] Sep [facility] [place] [address] [id number] [place] [address] Aug [facility] [place] [address] [id number] [place] [address] Aug [facility] [place] [address] [id number] [place] [address] Aug Type 2 diabetes mellitus with hyperglycemia E11.65 [facility] [place] [address] [id number] [place] [address] Aug [facility] [address] [facility] [id number] [place] [address] Aug, [facility] [place] [address] [id number] [place] [address] Jul [facility] [place] [address] [id number] [place] [address] Jul Diabetic neuropathy E11.40 ; Essential hypertension I10 and Type 2 diabetes mellitus with hyperglycemia E11.65 [facility] [place] [address] [id number] [place] [address] Jul [facility] [place] [address] [id number] [place] [address] Jul [facility] [place] [address] [id number] [place] [address] Jul [facility] [place] [address] [id number] [place] [address] Jul [facility] [place] [address] [id number] [place] [address] Jul [facility] [place] [address] [id number] [place] [address] Jul Type 2 diabetes mellitus with hyperglycemia E11.65 ; Open wound of right great toe, subsequent encounter S91.101D ; Essential hypertension I10 and Diabetic neuropathy E11.40 [facility] [address] [id number] [place] [id number] Jul, [facility] [place] [address] [id number] [place] [address] Jun [facility] [place] [address] [id number] [place] [address] Jun Type 2 diabetes mellitus with hyperglycemia E11.65 [facility] [place] [address] [id number] [place] [address] Jun [facility] [place] [address] [id number] [place] [address] Jun [facility] [place] [address] [id number] [place] [address] Jun Abnormal mammogram of right breast R92.8 and Breast asymmetry N64.89 [facility] [place] [address] [id number] [place] [address] Jun [facility] [place] [address] [id number] [place] [address] Jun [facility] [place] [address] [id number] [place] [address] May Hypoglycemia E16.2 [facility] [place] [address] [id number] [place] [address] May Abnormal neurological exam R29.90 [facility] [place] [address] [id number] [place] [address] May [facility] [place] [address] [id number] [place] [address] May Type 2 diabetes mellitus with hyperglycemia E11.65 [facility] [place] [address] [id number] [place] [address] May Breast cancer screening Z12.31 and Hematuria, unspecified type R31.9 [facility] [place] [address] [id number] [place] [address] May [facility] [place] [address] [id number] [place] [address] May Type 2 diabetes mellitus with hyperglycemia E11.65 ; Essential hypertension I10 ; Moderately severe depression F32.2 and Confusion R41.0 [place] [address], [place] [address] May, [facility] [place] [address] [id number] [place] [address] May Cerebrovascular accident (CVA), unspecified mechanism I63.9 ; Essential hypertension I10 ; Hyperlipidemia, unspecified E78.5 and Type 2 diabetes mellitus with hyperglycemia E11.65 [place] [address], [place] [address] May, [place] [address] [place] [id number] [place] [address] [place] [address] May, [facility] [place] [address] [id number] [place] [address] May [facility] [place] [address] [id number] [place] [address] May Diabetic neuropathy E11.40 and Diabetes E11.9 [facility] [place] [address] [id number] [place] [address] Apr [facility] [place] [address] [id number] [place] [address] Apr Subacute maxillary sinusitis J01.00 ; Hypoglycemia associated with type 2 diabetes mellitus E11.649 and Intractable episodic headache, unspecified headache type R51 [facility] [place] [address] [id number] [place] [address] Apr Diabetic neuropathy E11.40 and Anxiety F41.9 [facility] [place] [address] [id number] [place] [address] Apr [facility] [place] [address] [id number] [place] [address] Apr Type 2 diabetes mellitus with hyperglycemia E11.65 ; Subacute maxillary sinusitis J01.00 ; Diabetic neuropathy E11.40 and Sleep apnea in adult G47.30 [facility] [address] [facility] [id number] [place] [address] Apr, [facility] [place] [address] [id number] [place] [address] Apr [facility] [place] [address] [id number] [place] [address] Apr [facility] [place] [address] [id number] [place] [address] Apr Subacute maxillary sinusitis J01.00 [facility] [address] [facility] [id number] [place] [address] Apr, Right foot drop M21.371 [facility] [place] [address] [id number] [place] [address] Apr [facility] [place] [address] [id number] [place] [address] Mar [facility] [place] [address] [id number] [place] [address] Mar Essential hypertension I10 ; Type 2 diabetes mellitus with hyperglycemia E11.65 ; Encounter for immunization Z23 ; Cocaine abuse F14.10 and Hyperlipidemia, unspecified E78.5 [facility] [place] [address] [id number] [place] [address] Mar [facility] [address], [place] [address] Mar, [facility] [place] [address] [id number] [place] [address] Feb [facility] [address] [id number] [place] [address] Feb Type 2 diabetes mellitus with hyperglycemia E11.65 and Acute right ankle pain M25.571 [facility] [place] [address] [id number] [place] [address] Feb Weight loss R63.4 and Anxiety F41.9 [place] [address] [place] [id number] [place] [address] Jan, [facility] [address] [place] [id number] [place] [address] Jan, [place] [address] [place] [id number] [place] [address] Jan, [facility] [address] [place] [id number] [place] [address] Jan, Diabetes E11.9 [facility] [place] [address] [id number] [place] [address] Jan Sprain of right ankle, unspecified ligament, initial encounter S93.401A [facility] [place] [address] [id number] [place] [address] Jan Essential hypertension I10 ; Anxiety F41.9 and Type 2 diabetes mellitus with hyperglycemia E11.65 [facility] [address] [facility] [id number], [place] [address] Jan, Diabetes E11.9 [facility] [address] [facility] [id number] [address] Jan, [facility] [address], [place] [address] Jan, [address] [id number] [place] [address] Jan [facility] [address] [facility] [id number] [address] Jan, [facility] [address], [place] [address] Jan, [facility] [address], [place] [address] Jan, [facility] [address], [place] [address] Jan, [facility] [address], [place] [address] Jan, Unintentional weight loss R63.4 ; Stage 2 chronic kidney disease N18.2 ; Exposure to hepatitis C Z20.5 ; Diabetic neuropathy E11.40 ; Obstructive sleep apnea syndrome G47.33 ; Essential hypertension I10 and Type 2 diabetes mellitus with hyperglycemia E11.65 [facility] [address], [place] [address] Jan, [facility] [address] [place] [id number], [place] [address] Jan, Type 2 diabetes mellitus with hyperglycemia E11.65 ; Diabetic neuropathy E11.40 and Essential hypertension I10 [facility] [address] [place] [address] [id number], [place] [address] Dec, Diabetes E11.9 [facility] [address] [place] [id number], [place] [address] Dec, [facility] [address], [place] [address] Dec, [facility] [address], [place] [address] Dec, [facility] [address], [place] [address] Dec, Dental examination Z01.20 [facility] [address] [place] [address] Dec, [facility] [address] [place] [address] Dec, Diabetes E11.9 [place] [address] [place] [address] Dec, Stage 2 chronic kidney disease N18.2 ; Exposure to hepatitis C Z20.5 ; Obstructive sleep apnea syndrome G47.33 and Type 2 diabetes mellitus with hyperglycemia E11.65 [facility] [address], [place] [address] Dec, [facility] [address] [id number] [place] [address] Dec Diabetes E11.9 and Essential hypertension I10 [facility] [address], [place] [address] Nov, Diabetes E11.9 [facility] [address], [place] [address] Nov, Right foot pain M79.671 [facility] [id number] [address] Nov, Right foot pain M79.671 [facility] [address] [id number] [place] [address] Nov Diabetes E11.9 [facility] [address] [id number] [place] [address] Nov Diabetes E11.9 [facility] [address] [place] [id number] 16 Nov, 2016 Dental examination Z01.20 [facility] [place] [address] [id number] [place] [address] 09 Nov Diabetes E11.9 ; Cocaine abuse F14.10 and Shingles (herpes zoster) polyneuropathy B02.23 [facility] [place] [address] [id number] [place] [address] Nov [facility] [place] [address] [facility] [id number] [place] [address] October, [facility] [place] [address] [id number] [place] [address] October [facility] [place] [address] [id number] [place] [address] October Unintentional weight loss R63.4 [facility] [place] [address] [id number] [place] [address] October Abscess L02.91 [facility] [place] [address] [id number] [place] [address] October Diabetes E11.9 ; Unintentional weight loss R63.4 ; History of hematuria Z87.448 and Cocaine abuse F14.10 [facility] [place] [address] [id number] [place] [address] October Diabetes E11.9 [facility] [place] [address] [id number] [place] [address] October Essential hypertension I10 and Abscess L02.91 [facility] [place] [address] [id number] [place] [address] Jun [facility] [place] [address] [id number] [place] [address] May Breast cancer screening Z12.39 ; Diabetes E11.9 and Anxiety F41.9 [facility] [place] [address] [id number] [place] [id number] May, Diabetes E11.9 [facility] [place] [address] [id number] [place] [address] May Diabetes E11.9 and Anemia D64.9 [facility] [place] [address] [id number] [place] [address] 14 May Anxiety F41.9 [facility] [place] [address] [id number] [place] [address] 08 May [facility] [place] [address] [id number] [place] [address] May Dysuria R30.0 [facility] [place] [address] [id number] [place] [address] May [facility] [place] [address] [id number] [place] [address] May Dysuria R30.0 and Vaginal itching L29.8 [facility] [address] [place] [id number] [place] [address] Apr, [facility] [place] [address] [id number] [place] [address] Apr Diabetes E11.9 ; Dysuria R30.0 ; Diabetic neuropathy E11.40 ; Anemia D64.9 and Vaginal discharge N89.8 [facility] [address] [place] [id number] [place] [address] Jun, [place] [id number] [place] [id number] Jun, Anemia D64.9 ; Anxiety F41.9 ; Diabetes E11.9 and Diabetic neuropathy E11.40 [place] [id number] [place] [phone] May, [facility] [address] [place] [id number] [place] [address] Apr, [place] [id number] [place] [id number] Apr, Anemia D64.9 ; Anxiety F41.9 ; Diabetes E11.9 and Diabetic neuropathy E11.40 [place] [id number] [place] [id number] Mar, Acute costochondritis M94.0 [address] [id number] Mar, Bilateral low back pain without sciatica M54.5 and Bereavement Z63.[address] [id number] Mar, Obstructive chronic bronchitis with acute exacerbation J44.1 ; Herpes zoster without complication B02.9 and [place] N91.[address] [id number] Mar, [place] [address] [phone] Mar, [address] [id number] Feb, History of recent traumatic injury of head V15.52 ; Diabetes type 2, uncontrolled 250.02 and Visual disturbance 368.[address] [id number] Feb, History of recent traumatic injury of head V15.52 ; Visual disturbance 368.9 and Diabetes type 2, uncontrolled 250.02 IMMUNIZATIONS No Known Immunizations SOCIAL HISTORY Never Assessed REASON FOR VISIT hospital discharge PLAN OF CARE VITAL SIGNS MEDICATIONS Medication Instructions Dosage Frequency Start Date End Date Duration Status Atorvastatin Calcium 20 mg Orally Once a day 1 tablet 24h May, 30 day(s) Active Lisinopril 20 mg Orally Once a day 1 tablet 24h May, 30 day(s) Active Acetaminophen 325 MG Orally 2 times a day 1 capsules as needed May, 30 days Active Aspirin 81 MG Orally Once a day 1 tablet 24h May, 30 day(s) Active Metformin HCl 850 MG Orally Twice a day 1 tablet with meals 12h May, 30 day(s) Active Amlodipine Besylate 5 mg Orally Once a day 1 tablet 24h May, 30 day(s) Active Protonix 40 mg Orally Once a day 1 tablet 24h May, 30 day(s) Active Cephalexin 500 mg Orally every 12 hrs 1 capsule 12h May, 07 days Active RESULTS No Results PROCEDURES [...] infection 2004 Hospitalization History in rehab at [facility] 2016 Hospitalization History Stroke 05/2017 Hospitalization History surgeries Hospitalization History Elevated B/S 07/2017 Hospitalization History [facility] - blood clot LRE 10/2017
--- OUTSIDE RECORDS SUMMARY | 2018-05-13 11:25 | XMS REPORT ---
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 Name Role Phone CHRIS BECKWITH Unavailable PROBLEMS Type Condition ICD9-CM Code EWT98-PL Code Onset Dates Condition Status SNOMED Code Problem Type 2 diabetes mellitus with hyperglycemia E11.65 Active 527637765711598 Problem Sleep apnea in adult G47.30 Active 10830841 Problem Hyperlipidemia, unspecified E78.5 Active 57631375 Problem Abnormal mammogram of right breast R92.8 Active 345306570 Problem Breast asymmetry N64.89 Active 619022588 Problem Moderately severe depression F32.2 Active 855602811 Problem Hypoglycemia associated with type 2 diabetes mellitus E11.649 Active 443140707 Problem Hypoglycemia E16.2 Active 540448493 Problem Cerebrovascular accident (CVA), unspecified mechanism I63.9 Active 791815579 Problem Essential hypertension I10 Active 95311810 Problem Cocaine abuse F14.10 Active 16451927 Problem Diabetic neuropathy E11.40 Active 375288196 Problem Stage 2 chronic kidney disease N18.2 Active 386352700 Problem Anxiety F41.9 Active 40538194 Problem Obstructive sleep apnea syndrome G47.33 Active 36261949 ALLERGIES No Information ENCOUNTERS Encounter Location Date Diagnosis [facility] [address] [id number] [place] [address] Aug [facility] [place] [address] [id number] [place] [address] Aug [facility] [place] [address] [id number] [place] [address] Aug Type 2 diabetes mellitus with hyperglycemia E11.65 [facility] [address] [id number] [place] [address] Aug [facility] [address] [facility] [id number] [place] [address] Aug, [facility] [place] [address] [id number] [place] [address] Jul [facility] [place] [address] [id number] [place] [address] Jul Diabetic neuropathy E11.40 ; Essential hypertension I10 and Type 2 diabetes mellitus with hyperglycemia E11.65 [facility] [place] [address] [id number] [place] [address] Jul [facility] [place] [address] [id number] [place] [address] Jul [facility] [place] [address] [id number] [place] [address] Jul [facility] [place] [address] [id number] [place] [address] Jul [facility] [place] [address] [id number] [place] [address] Jul [facility] [place] [address] [id number] [place] [address] Jul Type 2 diabetes mellitus with hyperglycemia E11.65 ; Open wound of right great toe, subsequent encounter S91.101D ; Essential hypertension I10 and Diabetic neuropathy E11.40 [facility] [address] [id number] [place] [id number] Jul, [facility] [place] [address] [id number] [place] [address] Jun [facility] [place] [address] [id number] [place] [address] Jun Type 2 diabetes mellitus with hyperglycemia E11.65 [facility] [place] [address] [id number] [place] [address] Jun [facility] [place] [address] [id number] [place] [address] Jun [facility] [place] [address] [id number] [place] [address] Jun Abnormal mammogram of right breast R92.8 and Breast asymmetry N64.89 [facility] [place] [address] [id number] [place] [address] Jun [facility] [place] [address] [id number] [place] [address] Jun [facility] [place] [address] [id number] [place] [address] May Hypoglycemia E16.2 [facility] [place] [address] [id number] [place] [address] May Abnormal neurological exam R29.90 [facility] [place] [address] [id number] [place] [address] May [facility] [place] [address] [id number] [place] [address] May Type 2 diabetes mellitus with hyperglycemia E11.65 [facility] [place] [address] [id number] [place] [address] May Breast cancer screening Z12.31 and Hematuria, unspecified type R31.9 [facility] [place] [address] [id number] [place] [address] May [facility] [place] [address] [id number] [place] [address] May Type 2 diabetes mellitus with hyperglycemia E11.65 ; Essential hypertension I10 ; Moderately severe depression F32.2 and Confusion R41.0 [place] [address] [id number] [address] May, [facility] [place] [address] [id number] [place] [address] May Cerebrovascular accident (CVA), unspecified mechanism I63.9 ; Essential hypertension I10 ; Hyperlipidemia, unspecified E78.5 and Type 2 diabetes mellitus with hyperglycemia E11.65 [place] [address] [id number] [place] [address] May, [place] [address] [id number] [address] May, [facility] [place] [address] [id number] [place] [address] May [facility] [place] [address] [id number] [place] [address] May Diabetic neuropathy E11.40 and Diabetes E11.9 [facility] [place] [address] [id number] [place] [address] Apr [facility] [place] [address] [id number] [place] [address] Apr Subacute maxillary sinusitis J01.00 ; Hypoglycemia associated with type 2 diabetes mellitus E11.649 and Intractable episodic headache, unspecified headache type R51 [facility] [place] [address] [id number] [place] [address] Apr Diabetic neuropathy E11.40 and Anxiety F41.9 [facility] [place] [address] [id number] [place] [address] Apr [facility] [place] [address] [id number] [place] [address] Apr Type 2 diabetes mellitus with hyperglycemia E11.65 ; Subacute maxillary sinusitis J01.00 ; Diabetic neuropathy E11.40 and Sleep apnea in adult G47.30 [place] [address] [id number] [place] [address] Apr, [facility] [place] [address] [id number] [place] [address] Apr [facility] [place] [address] [id number] [place] [address] Apr [facility] [place] [address] [id number] [place] [address] Apr Subacute maxillary sinusitis J01.00 [place] [address] [id number] [place] [address] Apr, Right foot drop M21.371 [facility] [place] [address] [id number] [place] [address] Apr [facility] [place] [address] [id number] [place] [address] Mar [facility] [place] [address] [id number] [place] [address] Mar Essential hypertension I10 ; Type 2 diabetes mellitus with hyperglycemia E11.65 ; Encounter for immunization Z23 ; Cocaine abuse F14.10 and Hyperlipidemia, unspecified E78.5 [facility] [place] [address] [id number] [place] [address] Mar [facility] [address]00565100[place] [address] Mar, [facility] [place] [address] [id number] [place] [address] Feb [facility] [place] [address] [id number] [place] [address] Feb Type 2 diabetes mellitus with hyperglycemia E11.65 and Acute right ankle pain M25.571 [facility] [place] [address] [id number] [place] [address] Feb Weight loss R63.4 and Anxiety F41.9 [place] [address]005[address], [place] [address] Jan, [facility] [id number] [place] [address] Jan, [facility] [id number] [place] [address] Jan, [facility] [address] [place] [address] Jan, Diabetes E11.9 [facility] [place] [address] [id number] [place] [address] Jan Sprain of right ankle, unspecified ligament, initial encounter S93.401A [facility] [place] [address] [id number] [place] [address] Jan Essential hypertension I10 ; Anxiety F41.9 and Type 2 diabetes mellitus with hyperglycemia E11.65 [facility] [address] [address] Jan, Diabetes E11.9 [facility] [address]65[address], [place] [address] Jan, [facility] [address]00565[address], [place] [address] Jan, [address] [id number] [place] [address] Jan [facility] [address], [place] [address] Jan, [facility] [address]65100[place], [place] [address] Jan, [facility] [address]65[address], [place] [address] Jan, [facility] [address]00565100[place], [place] [address] Jan, [facility] [address], [place] [address] Jan, Unintentional weight loss R63.4 ; Stage 2 chronic kidney disease N18.2 ; Exposure to hepatitis C Z20.5 ; Diabetic neuropathy E11.40 ; Obstructive sleep apnea syndrome G47.33 ; Essential hypertension I10 and Type 2 diabetes mellitus with hyperglycemia E11.65 [facility] [address]65[address], [place] [address] Jan, [facility] [address]65100[place], [place] [address] Jan, Type 2 diabetes mellitus with hyperglycemia E11.65 ; Diabetic neuropathy E11.40 and Essential hypertension I10 [facility] [address]65[address], [place] [address] Dec, Diabetes E11.9 [facility] [address] [id number], [place] [address] Dec, [facility] [address], [place] [address] Dec, [facility] [address]65[address], [place] [address] Dec, [facility] [address]65100[place], [place] [address] Dec, Dental examination Z01.20 [facility] [address]00565100[place], [place] [address] Dec, [facility] [id number] [place] [address] Dec, Diabetes E11.9 [place] [address] [place] [address] Dec, Stage 2 chronic kidney disease N18.2 ; Exposure to hepatitis C Z20.5 ; Obstructive sleep apnea syndrome G47.33 and Type 2 diabetes mellitus with hyperglycemia E11.65 [facility] [address]65[address], [place] [address] Dec, [facility] [address] [id number] [place] [address] Dec Diabetes E11.9 and Essential hypertension I10 [facility] [address], [place] [address] Nov, Diabetes E11.9 [facility] [address] [id number], [place] [address] Nov, Right foot pain M79.671 [facility] [id number] [address] Nov, Right foot pain M79.671 [facility] [address] [id number] [place] [address] Nov Diabetes E11.9 [facility] [address] [id number] [place] [address] Nov Diabetes E11.9 [facility] [id number] [address] Nov, Dental examination Z01.20 [facility] [place] [address] [id number] [place] [address] 09 Nov Diabetes E11.9 ; Cocaine abuse F14.10 and Shingles (herpes zoster) polyneuropathy B02.23 [facility] [place] [address] [id number] [place] [address] Nov [facility] [address] [facility] [id number] [place] [address] October, [facility] [place] [address] [id number] [place] [address] October [facility] [place] [address] [id number] [place] [address] October Unintentional weight loss R63.4 [facility] [place] [address] [id number] [place] [address] October Abscess L02.91 [facility] [place] [address] [id number] [place] [address] October Diabetes E11.9 ; Unintentional weight loss R63.4 ; History of hematuria Z87.448 and Cocaine abuse F14.10 [facility] [place] [address] [id number] [place] [address] October Diabetes E11.9 [facility] [place] [address] [id number] [place] [address] October Essential hypertension I10 and Abscess L02.91 [facility] [place] [address] [id number] [place] [address] Jun [facility] [place] [address] [id number] [place] [address] May Breast cancer screening Z12.39 ; Diabetes E11.9 and Anxiety F41.9 [facility] [address] [id number] [place] [id number] May, Diabetes E11.9 [facility] [place] [address] [id number] [place] [address] May Diabetes E11.9 and Anemia D64.9 [facility] [place] [address] [id number] [place] [address] 14 May Anxiety F41.9 [facility] [place] [address] [id number] [place] [address] 08 May [facility] [place] [address] [id number] [place] [address] 06 May Dysuria R30.0 [facility] [place] [address] [id number] [place] [address] May [facility] [place] [address] [id number] [place] [address] 05 May Dysuria R30.0 and Vaginal itching L29.8 [place] [address] [place] [address] Apr, [facility] [place] [address] [id number] [place] [address] 14 Apr Diabetes E11.9 ; Dysuria R30.0 ; Diabetic neuropathy E11.40 ; Anemia D64.9 and Vaginal discharge N89.8 [place] [address]00565100[place], [place] [address] Jun, [place] [id number] [place] [id number] Jun, Anemia D64.9 ; Anxiety F41.9 ; Diabetes E11.9 and Diabetic neuropathy E11.[address] [place] [id number] May, [facility] [address] [place] [address] Apr, [place] [id number] [place] [id number] Apr, Anemia D64.9 ; Anxiety F41.9 ; Diabetes E11.9 and Diabetic neuropathy E11.[address] [place] [id number] Mar, Acute costochondritis M94.0 [address]00565100[place] [address] Mar, 2015 Bilateral low back pain without sciatica M54.5 and Bereavement Z63.4 [address]00565100[place] [id number] 14 Mar, 2015 Obstructive chronic bronchitis with acute exacerbation J44.1 ; Herpes zoster without complication B02.9 and [place] N91.2 [address]00565100[place] [id number] Mar, [address]00565100[place] [id number] Mar, [address]00565100[place] [id number] Feb, History of recent traumatic injury of head V15.52 ; Diabetes type 2, uncontrolled 250.02 and Visual disturbance 368.9 [place] 59719B00565100[place] [id number] Feb, History of recent traumatic injury of head V15.52 ; Visual disturbance 368.9 and Diabetes type 2, uncontrolled 250.02 IMMUNIZATIONS No Known Immunizations SOCIAL HISTORY Never Assessed REASON FOR VISIT Requests return call PLAN OF CARE VITAL SIGNS MEDICATIONS Medication Instructions Dosage Frequency Start Date End Date Duration Status Macrobid 100 mg Orally every 12 hrs 1 capsule with food 12Dec, Dec, 7 day(s) Active RESULTS No Results PROCEDURES No [...] infection 2005 Hospitalization History in rehab at [place] 2017 Hospitalization History Stroke 05/2017 Hospitalization History surgeries Hospitalization History Elevated B/S 07/2017
--- OUTSIDE RECORDS SUMMARY | 2018-05-13 11:26 | XMS REPORT ---
Author Author BARRETT SCHRADER Organization [facility] Address [address] [place] [address] Care Team Providers Care Windows Systems Administrator Name Role Phone BARRETT SCHRADER Unavailable PROBLEMS Type Condition ICD9-CM Code OWP58-PS Code Onset Dates Condition Status SNOMED Code Problem Type 2 diabetes mellitus with hyperglycemia E11.65 Active 464113883052446 Problem Sleep apnea in adult G47.30 Active 09579168 Problem Hyperlipidemia, unspecified E78.5 Active 19431840 Problem Abnormal mammogram of right breast R92.8 Active 473276989 Problem Breast asymmetry N64.89 Active 764829776 Problem Moderately severe depression F32.2 Active 567340467 Problem Hypoglycemia associated with type 2 diabetes mellitus E11.649 Active 573066454 Problem Hypoglycemia E16.2 Active 526807232 Problem Cerebrovascular accident (CVA), unspecified mechanism I63.9 Active 388153594 Problem Essential hypertension I10 Active 79413533 Problem Cocaine abuse F14.10 Active 32116291 Problem Diabetic neuropathy E11.40 Active 821222572 Problem Stage 2 chronic kidney disease N18.2 Active 069922921 Problem Anxiety F41.9 Active 88643098 Problem Obstructive sleep apnea syndrome G47.33 Active 47756124 ALLERGIES No Information ENCOUNTERS Encounter Location Date Diagnosis [facility] [address] [id number] [place] [address] Aug [facility] [address] [id number] [place] [address] Aug [facility] [facility] [address] [id number] [place] [address] Aug Type 2 diabetes mellitus with hyperglycemia E11.65 [facility] [address] [id number] [place] [address] Aug [facility] [address] [facility] [id number] [place] [address] Aug, [facility] [place] [address] [id number] [place] [address] Jul [facility] [place] [address] [id number] [place] [address] Jul Diabetic neuropathy E11.40 ; Essential hypertension I10 and Type 2 diabetes mellitus with hyperglycemia E11.65 [facility] [place] [address] [id number] [place] [address] Jul [facility] [place] [address] [id number] [place] [address] Jul [facility] [place] [address] [id number] [place] [address] Jul [facility] [place] [address] [id number] [place] [address] Jul [facility] [place] [address] [id number] [place] [address] Jul [facility] [place] [address] [id number] [place] [address] Jul Type 2 diabetes mellitus with hyperglycemia E11.65 ; Open wound of right great toe, subsequent encounter S91.101D ; Essential hypertension I10 and Diabetic neuropathy E11.40 [facility] [id number] [place] [id number] Jul, [facility] [place] [address] [id number] [place] [address] Jun [facility] [place] [address] [id number] [place] [address] Jun Type 2 diabetes mellitus with hyperglycemia E11.65 [facility] [place] [address] [id number] [place] [address] Jun [facility] [place] [address] [id number] [place] [address] Jun [facility] [place] [address] [id number] [place] [address] Jun Abnormal mammogram of right breast R92.8 and Breast asymmetry N64.89 [facility] [place] [address] [id number] [place] [address] Jun [facility] [place] [address] [id number] [place] [address] Jun [facility] [place] [address] [id number] [place] [address] May Hypoglycemia E16.2 [facility] [place] [address] [id number] [place] [address] May Abnormal neurological exam R29.90 [facility] [place] [address] [id number] [place] [address] May [facility] [place] [address] [id number] [place] [address] May Type 2 diabetes mellitus with hyperglycemia E11.65 [facility] [place] [address] [id number] [place] [address] May Breast cancer screening Z12.31 and Hematuria, unspecified type R31.9 [facility] [place] [address] [id number] [place] [address] May [facility] [place] [address] [id number] [place] [address] May Type 2 diabetes mellitus with hyperglycemia E11.65 ; Essential hypertension I10 ; Moderately severe depression F32.2 and Confusion R41.0 [place] [address] [id number] [address] May, [employer] [place] [address] [id number] [place] [address] May Cerebrovascular accident (CVA), unspecified mechanism I63.9 ; Essential hypertension I10 ; Hyperlipidemia, unspecified E78.5 and Type 2 diabetes mellitus with hyperglycemia E11.65 [place] [address] [id number] [address] May, [place] [address] [id number] [address] May, [facility] [place] [address] [id number] [place] [address] May [facility] [place] [address] [id number] [place] [address] May Diabetic neuropathy E11.40 and Diabetes E11.9 [facility] [place] [address] [id number] [place] [address] Apr [facility] [place] [address] [id number] [place] [address] Apr Subacute maxillary sinusitis J01.00 ; Hypoglycemia associated with type 2 diabetes mellitus E11.649 and Intractable episodic headache, unspecified headache type R51 [facility] [place] [address] [id number] [place] [address] Apr Diabetic neuropathy E11.40 and Anxiety F41.9 [facility] [place] [address] [id number] [place] [address] Apr [facility] [place] [address] [id number] [place] [address] Apr Type 2 diabetes mellitus with hyperglycemia E11.65 ; Subacute maxillary sinusitis J01.00 ; Diabetic neuropathy E11.40 and Sleep apnea in adult G47.30 [facility] [address] [facility] [id number] [place] [address] Apr, [facility] [place] [address] [id number] [place] [address] Apr [facility] [place] [address] [id number] [place] [address] Apr [facility] [place] [address] [id number] [place] [address] Apr Subacute maxillary sinusitis J01.00 [facility] [address] [facility] [id number] [place] [address] Apr, Right foot drop M21.371 [facility] [place] [address] [id number] [place] [address] Apr [facility] [place] [address] [id number] [place] [address] Mar [facility] [place] [address] [id number] [place] [address] Mar Essential hypertension I10 ; Type 2 diabetes mellitus with hyperglycemia E11.65 ; Encounter for immunization Z23 ; Cocaine abuse F14.10 and Hyperlipidemia, unspecified E78.5 [facility] [place] [address] [id number] [place] [address] Mar [facility] [address] [place] [address] Mar, [facility] [place] [address] [id number] [place] [address] Feb [facility] [place] [address] [id number] [place] [address] Feb Type 2 diabetes mellitus with hyperglycemia E11.65 and Acute right ankle pain M25.571 [facility] [place] [address] [id number] [place] [address] Feb Weight loss R63.4 and Anxiety F41.9 [facility] [address] [place] [address] Jan, [facility] [id number] [place] [address] Jan, [facility] [id number] [place] [address] Jan, [facility] [id number] [place] [address] Jan, Diabetes E11.9 [facility] [place] [address] [id number] [place] [address] Jan Sprain of right ankle, unspecified ligament, initial encounter S93.401A [facility] [place] [address] [id number] [place] [address] Jan Essential hypertension I10 ; Anxiety F41.9 and Type 2 diabetes mellitus with hyperglycemia E11.65 [facility] [address] [place] [address] Jan, Diabetes E11.9 [facility] [address] [id number] [address] Jan, [facility] [address] [address] Jan, [facility] [place] [id number] [place] [address] Jan [facility] [address] [place] [address] Jan, [facility] [address] [address] Jan, [facility] [address] [address] Jan, [facility] [address] [address] Jan, [facility] [address] [address] Jan, Unintentional weight loss R63.4 ; Stage 2 chronic kidney disease N18.2 ; Exposure to hepatitis C Z20.5 ; Diabetic neuropathy E11.40 ; Obstructive sleep apnea syndrome G47.33 ; Essential hypertension I10 and Type 2 diabetes mellitus with hyperglycemia E11.65 [facility] [address], [place] [address] Jan, [facility] [address] [address] Jan, Type 2 diabetes mellitus with hyperglycemia E11.65 ; Diabetic neuropathy E11.40 and Essential hypertension I10 [facility] [address] [address] Dec, Diabetes E11.9 [facility] [address] [id number] [address] Dec, [facility] [address] [address] Dec, [facility] [address], [place] [address] Dec, [facility] [id number] [place] [address] Dec, Dental examination Z01.20 [facility] [address] [place] [address] Dec, [facility] [id number] [place] [address] Dec, Diabetes E11.9 [facility] [id number] [place] [address] Dec, Stage 2 chronic kidney disease N18.2 ; Exposure to hepatitis C Z20.5 ; Obstructive sleep apnea syndrome G47.33 and Type 2 diabetes mellitus with hyperglycemia E11.65 [facility] [address] [place] [address] Dec, [facility] [place] [address] [id number] [place] [address] Dec Diabetes E11.9 and Essential hypertension I10 [facility] [address] [place] [address] Nov, Diabetes E11.9 [facility] [address] [address] Nov, Right foot pain M79.671 [facility] [id number] [address] Nov, Right foot pain M79.671 [facility] [place] [address] [id number] [place] [address] Nov Diabetes E11.9 [facility] [address] [id number] [place] [address] Nov Diabetes E11.9 [facility] [address] [id number] [address] Nov, Dental examination Z01.20 [facility] [place] [address] [id number] [place] [address] 09 Nov Diabetes E11.9 ; Cocaine abuse F14.10 and Shingles (herpes zoster) polyneuropathy B02.23 [facility] [place] [address] [id number] [place] [address] Nov [facility] [address] [facility] [id number] [place] [address] October, [facility] [place] [address] [id number] [place] [address] October [facility] [place] [address] [id number] [place] [address] October Unintentional weight loss R63.4 [facility] [place] [address] [id number] [place] [address] October Abscess L02.91 [facility] [place] [address] [id number] [place] [address] October Diabetes E11.9 ; Unintentional weight loss R63.4 ; History of hematuria Z87.448 and Cocaine abuse F14.10 [facility] [place] [address] [id number] [place] [address] October Diabetes E11.9 [facility] [place] [address] [id number] [place] [address] October Essential hypertension I10 and Abscess L02.91 [facility] [place] [address] [id number] [place] [address] Jun [facility] [place] [address] [id number] [place] [address] May Breast cancer screening Z12.39 ; Diabetes E11.9 and Anxiety F41.9 [facility] [place] [address] [id number] [place] [id number] May, Diabetes E11.9 [facility] [place] [address] [id number] [place] [address] May Diabetes E11.9 and Anemia D64.9 [facility] [place] [address] [id number] [place] [address] 14 May Anxiety F41.9 [facility] [place] [address] [id number] [place] [address] 08 May [facility] [place] [address] [id number] [place] [address] May Dysuria R30.0 [facility] [place] [address] [id number] [place] [address] May [facility] [place] [address] [id number] [place] [address] 05 May Dysuria R30.0 and Vaginal itching L29.8 [place] [id number] [place] [address] Apr, [facility] [place] [address] [id number] [place] [address] 14 Apr Diabetes E11.9 ; Dysuria R30.0 ; Diabetic neuropathy E11.40 ; Anemia D64.9 and Vaginal discharge N89.8 [facility] [address] [place] [address] Jun, [place] [id number] [place] [id number] Jun, Anemia D64.9 ; Anxiety F41.9 ; Diabetes E11.9 and Diabetic neuropathy E11.[address] [place] [id number] May, [facility] [id number] [place] [address] Apr, [place] [id number] [place] [id number] Apr, Anemia D64.9 ; Anxiety F41.9 ; Diabetes E11.9 and Diabetic neuropathy E11.40 [place] [id number] [place] [id number] Mar, Acute costochondritis M94.0 [address]65[address] [id number] 15 Mar, 2015 Bilateral low back pain without sciatica M54.5 and Bereavement Z63.4 [address] [id number] 14 Mar, 2015 Obstructive chronic bronchitis with acute exacerbation J44.1 ; Herpes zoster without complication B02.9 and [place] N91.2 [address]005[address] [id number] Mar, [place] [address] [id number] Mar, [address]00565[place] [id number] Feb, History of recent traumatic injury of head V15.52 ; Diabetes type 2, uncontrolled 250.02 and Visual disturbance 368.[address]00565[address] [id number] 17 Feb, 2015 History of recent traumatic [...] infection 2004 Hospitalization History in rehab [facility] 2016 Hospitalization History Stroke 05/2017 Hospitalization History surgeries Hospitalization History Elevated B/S 07/2017
--- OUTSIDE RECORDS SUMMARY | 2018-05-13 11:26 | XMS REPORT ---
Author Author BARRETT SCHRADER Organization [facility] Address [address] [place] [address] Care Team Providers Care Hassock Maker Name Role Phone BARRETT SCHRADER Unavailable PROBLEMS Type Condition ICD9-CM Code AUD04-DP Code Onset Dates Condition Status SNOMED Code Problem Type 2 diabetes mellitus with hyperglycemia E11.65 Active 573561835243602 Problem Sleep apnea in adult G47.30 Active 25732662 Problem Hyperlipidemia, unspecified E78.5 Active 81325281 Problem Abnormal mammogram of right breast R92.8 Active 650193305 Problem Breast asymmetry N64.89 Active 349830597 Problem Moderately severe depression F32.2 Active 984646392 Problem Hypoglycemia associated with type 2 diabetes mellitus E11.649 Active 015304322 Problem Hypoglycemia E16.2 Active 603852742 Problem Cerebrovascular accident (CVA), unspecified mechanism I63.9 Active 476921167 Problem Essential hypertension I10 Active 99034815 Problem Cocaine abuse F14.10 Active 51672600 Problem Diabetic neuropathy E11.40 Active 248656800 Problem Stage 2 chronic kidney disease N18.2 Active 670998998 Problem Anxiety F41.9 Active 49771619 Problem Obstructive sleep apnea syndrome G47.33 Active [id number] ALLERGIES No Information ENCOUNTERS Encounter Location Date Diagnosis [facility] [place] [address] [id number] [place] [address] Sep Type 2 diabetes mellitus with hyperglycemia E11.65 ; Cocaine abuse F14.10 and Open wound of right great toe, subsequent encounter S91.101D [facility] [address] [id number] [place] [address] Sep [facility] [address] [id number] [place] [address] Aug [facility] [address] [id number] [place] [address] Aug [facility] [place] [address] [id number] [place] [address] Aug Type 2 diabetes mellitus with hyperglycemia E11.65 [facility] [place] [address] [id number] [place] [address] Aug [facility] [address] [facility] [place] [id number] [place] [address] Aug, [facility] [place] [address] [id number] [place] [address] Jul [facility] [place] [address] [id number] [place] [address] Jul Diabetic neuropathy E11.40 ; Essential hypertension I10 and Type 2 diabetes mellitus with hyperglycemia E11.65 [facility] [place] [address] [id number] [place] [address] Jul [facility] [place] [address] [id number] [place] [address] Jul [facility] [place] [address] [id number] [place] [address] Jul [facility] [place] [address] [id number] [place] [address] Jul [facility] [place] [address] [id number] [place] [address] Jul [facility] [place] [address] [id number] [place] [address] Jul Type 2 diabetes mellitus with hyperglycemia E11.65 ; Open wound of right great toe, subsequent encounter S91.101D ; Essential hypertension I10 and Diabetic neuropathy E11.[address] [facility] [address] [id number] [place] [address] Jul, [facility] [place] [address] [id number] [place] [address] Jun [facility] [place] [address] [id number] [place] [address] Jun Type 2 diabetes mellitus with hyperglycemia E11.65 [facility] [place] [address] [id number] [place] [address] Jun [facility] [place] [address] [id number] [place] [address] Jun [facility] [place] [address] [id number] [place] [address] Jun Abnormal mammogram of right breast R92.8 and Breast asymmetry N64.89 [facility] [place] [address] [id number] [place] [address] 15 Jun [facility] [place] [address] [id number] [place] [address] Jun [facility] [place] [address] [id number] [place] [address] May Hypoglycemia E16.2 [facility] [place] [address] [id number] [place] [address] May Abnormal neurological exam R29.90 [facility] [place] [address] [id number] [place] [address] May [facility] [place] [address] [id number] [place] [address] May Type 2 diabetes mellitus with hyperglycemia E11.65 [facility] [place] [address] [id number] [place] [address] May Breast cancer screening Z12.31 and Hematuria, unspecified type R31.9 [facility] [place] [address] [id number] [place] [address] May [facility] [place] [address] [id number] [place] [address] May Type 2 diabetes mellitus with hyperglycemia E11.65 ; Essential hypertension I10 ; Moderately severe depression F32.2 and Confusion R41.0 [facility] [address] [facility] [place] [id number] [place] [address] May, [facility] [place] [address] [id number] [place] [address] May Cerebrovascular accident (CVA), unspecified mechanism I63.9 ; Essential hypertension I10 ; Hyperlipidemia, unspecified E78.5 and Type 2 diabetes mellitus with hyperglycemia E11.65 [facility] [address] [facility] [place] [id number] [place] [address] May, [facility] [address] [facility] [place] [id number] [place] [address] May, [facility] [place] [address] [id number] [place] [address] May [facility] [place] [address] [id number] [place] [address] May Diabetic neuropathy E11.40 and Diabetes E11.9 [facility] [place] [address] [id number] [place] [address] Apr [facility] [place] [address] [id number] [place] [address] Apr Subacute maxillary sinusitis J01.00 ; Hypoglycemia associated with type 2 diabetes mellitus E11.649 and Intractable episodic headache, unspecified headache type R51 [facility] [place] [address] [id number] [place] [address] Apr Diabetic neuropathy E11.40 and Anxiety F41.9 [facility] [place] [address] [id number] [place] [address] Apr [facility] [place] [address] [id number] [place] [address] Apr Type 2 diabetes mellitus with hyperglycemia E11.65 ; Subacute maxillary sinusitis J01.00 ; Diabetic neuropathy E11.40 and Sleep apnea in adult G47.30 [facility] [address] [facility] [place] [id number] [place] [address] Apr, [facility] [place] [address] [id number] [place] [address] Apr [facility] [place] [address] [id number] [place] [address] Apr [facility] [place] [address] [id number] [place] [address] Apr Subacute maxillary sinusitis J01.00 [place] [address], [place] [address] Apr, Right foot drop M21.371 [facility] [place] [address] [id number] [place] [address] Apr [facility] [place] [address] [id number] [place] [address] Mar [facility] [place] [address] [id number] [place] [address] Mar Essential hypertension I10 ; Type 2 diabetes mellitus with hyperglycemia E11.65 ; Encounter for immunization Z23 ; Cocaine abuse F14.10 and Hyperlipidemia, unspecified E78.5 [facility] [place] [address] [id number] [place] [address] Mar [place] [address], [place] [address] Mar, [facility] [place] [address] [id number] [place] [address] Feb [facility] [place] [address] [id number] [place] [address] Feb Type 2 diabetes mellitus with hyperglycemia E11.65 and Acute right ankle pain M25.571 [facility] [place] [address] [id number] [place] [address] Feb Weight loss R63.4 and Anxiety F41.9 [place] [address], [place] [address] Jan, [place] [address], [place] [address] Jan, [place] [address] [id number] [address] Jan, [place] [address], [place] [address] Jan, Diabetes E11.9 [facility] [place] [address] [id number] [place] [address] Jan Sprain of right ankle, unspecified ligament, initial encounter S93.401A [facility] MAN [address] [id number] [place] [address] Jan Essential hypertension I10 ; Anxiety F41.9 and Type 2 diabetes mellitus with hyperglycemia E11.65 [facility] [address] [place] [address] Jan, Diabetes E11.9 [facility] [id number] [place] [address] Jan, [facility] [id number] [place] [address] Jan, [facility] MAN [address] [id number] [place] [address] Jan [facility] [id number] [place] [address] Jan, [facility] [id number] [place] [address] Jan, [facility] [id number] [place] [address] Jan, [facility] [id number] [place] [address] Jan, [facility] [address] [place] [address] Jan, Unintentional weight loss R63.4 ; Stage 2 chronic kidney disease N18.2 ; Exposure to hepatitis C Z20.5 ; Diabetic neuropathy E11.40 ; Obstructive sleep apnea syndrome G47.33 ; Essential hypertension I10 and Type 2 diabetes mellitus with hyperglycemia E11.65 [facility] [id number] [place] [address] Jan, [facility] [id number] [place] [address] Jan, Type 2 diabetes mellitus with hyperglycemia E11.65 ; Diabetic neuropathy E11.40 and Essential hypertension I10 [facility] [address] [place] [address] [id number], [place] [address] Dec, Diabetes E11.9 [facility] [address], [place] [address] Dec, [facility] [address], [place] [address] Dec, [facility] [address] [place] [address] Dec, [facility] [address], [place] [address] Dec, Dental examination Z01.20 [facility] [address], [place] [address] Dec, [facility] [address], [place] [address] Dec, Diabetes E11.9 [facility] [address], [place] [address] Dec, Stage 2 chronic kidney disease N18.2 ; Exposure to hepatitis C Z20.5 ; Obstructive sleep apnea syndrome G47.33 and Type 2 diabetes mellitus with hyperglycemia E11.65 [facility] [address] [address] [id number], [place] [address] Dec, [facility] MAN [address] [id number] [place] [address] Dec Diabetes E11.9 and Essential hypertension I10 [facility] [address] [id number], [place] [address] Nov, Diabetes E11.9 [facility] [address] [id number], [place] [address] Nov, Right foot pain M79.671 [facility] [address] [place] [address] [id number] [address] Nov, Right foot pain M79.671 [facility] MAN [address] [id number] [place] [address] Nov Diabetes E11.9 [facility] [place] [address] [id number] [place] [address] Nov Diabetes E11.9 [facility] [address] [facility] [id number] [place] [id number] 16 Nov, 2016 Dental examination Z01.20 [facility] [place] [address] [id number] [place] [address] 09 Nov Diabetes E11.9 ; Cocaine abuse F14.10 and Shingles (herpes zoster) polyneuropathy B02.23 [facility] [place] [address] [id number] [place] [address] Nov [facility] [address] [facility] [place] [id number] [place] [address] October, [facility] [place] [address] [id number] [place] [address] October [facility] [place] [address] [id number] [place] [address] October Unintentional weight loss R63.4 [facility] [place] [address] [id number] [place] [address] October Abscess L02.91 [facility] [place] [address] [id number] [place] [address] October Diabetes E11.9 ; Unintentional weight loss R63.4 ; History of hematuria Z87.448 and Cocaine abuse F14.10 [facility] [place] [address] [id number] [place] [address] October Diabetes E11.9 [facility] [place] [address] [id number] [place] [address] October Essential hypertension I10 and Abscess L02.91 [facility] [place] [address] [id number] [place] [address] Jun [facility] [place] [address] [id number] [place] [address] May Breast cancer screening Z12.39 ; Diabetes E11.[address] [facility] [address] [facility] [id number] [place] [id number] 16 May, 2016 Diabetes E11.9 [facility] [place] [address] [id number] [place] [address] 15 May Diabetes E11.9 and Anemia D64.9 [facility] [place] [address] [id number] [place] [address] 14 May Anxiety F41.9 [facility] [place] [address] [id number] [place] [address] 08 May [facility] [place] [address] [id number] [place] [address] May Dysuria R30.0 [facility] [place] [address] [id number] [place] [address] May [facility] [place] [address] [id number] [place] [address] May Dysuria R30.0 and Vaginal itching L29.8 [facility] [address] [address] [id number], [place] [address] Apr, [facility] [address] [id number] [place] [address] Apr Diabetes E11.9 ; Dysuria R30.0 ; Diabetic neuropathy E11.40 ; Anemia D64.9 and Vaginal discharge N89.8 [facility] [address], [place] [address] Jun, [place] [id number] [address] Jun, Anemia D64.9 ; Anxiety F41.9 ; Diabetes E11.9 and Diabetic neuropathy E11.40 [address]65[address] [id number] May, [facility] [address] [id number], [place] [address] Apr, [id number] [address] Apr, Anemia D64.9 ; Anxiety F41.9 ; Diabetes E11.9 and Diabetic neuropathy E11.[address] [place] [id number] [place] [id number] Mar, Acute costochondritis M94.0 [address] [place] [id number] [place] [id number] Mar, Bilateral low back pain without sciatica M54.5 and Bereavement Z63.[address] [id number] Mar, Obstructive chronic bronchitis with acute exacerbation J44.1 ; Herpes zoster without complication B02.9 and [place] N91.[address] [place] [id number] [place] [id number] Mar, [place] [id number] [place] [id number] Mar, [place] [id number] [place] [id number] Feb, History of recent traumatic injury of head V15.52 ; Diabetes type 2, uncontrolled 250.02 and Visual disturbance 368.[address] [id number] Feb, History of recent traumatic injury of head V15.52 ; Visual disturbance 368.9 and Diabetes type 2, uncontrolled 250.02 IMMUNIZATIONS No Known Immunizations SOCIAL HISTORY Never Assessed REASON FOR VISIT Triage--ADaviedR PLAN OF CARE VITAL SIGNS MEDICATIONS Unknown [...] infection 2004 [facility]ization [facility] 2017 Hospitalization History Stroke 05/2017 Hospitalization History surgeries Hospitalization History Elevated B/S 07/2017
--- OUTSIDE RECORDS SUMMARY | 2018-05-13 11:27 | XMS REPORT ---
Author Author CHRIS BECKWTIH [facility] Address [address] [place] [address] Care Team Providers Care Orthopaedic General Name Role Phone CHRIS BECKWITH Unavailable PROBLEMS Type Condition ICD9-CM Code SZY06-WT Code Onset Dates Condition Status SNOMED Code Problem Type 2 diabetes mellitus with hyperglycemia E11.65 Active 626683271601750 Problem Sleep apnea in adult G47.30 Active 70022933 Problem Hyperlipidemia, unspecified E78.5 Active 91214518 Problem Abnormal mammogram of right breast R92.8 Active 621990277 Problem Breast asymmetry N64.89 Active 620671678 Problem Moderately severe depression F32.2 Active 518864677 Problem Hypoglycemia associated with type 2 diabetes mellitus E11.649 Active 244097816 Problem Hypoglycemia E16.2 Active 865394766 Problem Cerebrovascular accident (CVA), unspecified mechanism I63.9 Active 522759554 Problem Essential hypertension I10 Active 61865078 Problem Cocaine abuse F14.10 Active 34240813 Problem Diabetic neuropathy E11.40 Active 756348897 Problem Stage 2 chronic kidney disease N18.2 Active 104364943 Problem Anxiety F41.9 Active 81691024 Problem Obstructive sleep apnea syndrome G47.33 Active 62532587 ALLERGIES No Information ENCOUNTERS Encounter Location Date Diagnosis [facility] [address] [id number] [place] [address] October [facility] [address] [facility] [id number] [place] [address] October, [facility] [employer] [place] [address] [id number] [place] [address] October Sleep apnea in adult G47.30 [facility] [address] [id number] [place] [address] October Type 2 diabetes mellitus with hyperglycemia E11.65 [facility] [place] [address] [id number] [place] [address] Sep [facility] [place] [address] [id number] [place] [address] Sep Breast asymmetry N64.89 [facility] [place] [address] [id number] [place] [address] Sep [facility] [place] [address] [id number] [place] [address] Sep Type 2 diabetes mellitus with hyperglycemia E11.65 ; Cocaine abuse F14.10 and Open wound of right great toe, subsequent encounter S91.101D [facility] [place] [address] [id number] [place] [address] Sep [facility] [place] [address] [id number] [place] [address] Aug [facility] [place] [address] [id number] [place] [address] Aug [facility] [place] [address] [id number] [place] [address] Aug Type 2 diabetes mellitus with hyperglycemia E11.65 [facility] [place] [address] [id number] [place] [address] Aug [facility] [address] [facility] [id number] [place] [address] Aug, [facility] [place] [address] [id number] [place] [address] Jul [facility] [place] [address] [id number] [place] [address] Jul Diabetic neuropathy E11.40 ; Essential hypertension I10 and Type 2 diabetes mellitus with hyperglycemia E11.65 [facility] [place] [address] [id number] [place] [address] Jul [facility] [place] [address] [id number] [place] [address] Jul [facility] [place] [address] [id number] [place] [address] Jul [facility] [place] [address] [id number] [place] [address] Jul [facility] [place] [address] [id number] [place] [address] Jul [facility] [place] [address] [id number] [place] [address] Jul Type 2 diabetes mellitus with hyperglycemia E11.65 ; Open wound of right great toe, subsequent encounter S91.101D ; Essential hypertension I10 and Diabetic neuropathy E11.[address] [facility] [address] [id number] [place] [address] Jul, [facility] [place] [address] [id number] [place] [address] Jun [facility] [place] [address] [id number] [place] [address] Jun Type 2 diabetes mellitus with hyperglycemia E11.65 [facility] [place] [address] [id number] [place] [address] Jun [facility] [place] [address] [id number] [place] [address] Jun [facility] [place] [address] [id number] [place] [address] Jun Abnormal mammogram of right breast R92.8 and Breast asymmetry N64.89 [facility] [place] [address] [id number] [place] [address] Jun [facility] [place] [address] [id number] [place] [address] Jun [facility] [place] [address] [id number] [place] [address] May Hypoglycemia E16.2 [facility] [place] [address] [id number] [place] [address] May Abnormal neurological exam R29.90 [facility] [place] [address] [id number] [place] [address] May [facility] [place] [address] [id number] [place] [address] May Type 2 diabetes mellitus with hyperglycemia E11.65 [facility] [place] [address] [id number] [place] [address] May Breast cancer screening Z12.31 and Hematuria, unspecified type R31.9 [facility] [place] [address] [id number] [place] [address] May [facility] [place] [address] [id number] [place] [address] May Type 2 diabetes mellitus with hyperglycemia E11.65 ; Essential hypertension I10 ; Moderately severe depression F32.2 and Confusion R41.0 [facility] [address] [facility] [id number] [address] May, [facility] [place] [address] [id number] [place] [address] May Cerebrovascular accident (CVA), unspecified mechanism I63.9 ; Essential hypertension I10 ; Hyperlipidemia, unspecified E78.5 and Type 2 diabetes mellitus with hyperglycemia E11.65 [facility] [address] [facility] [id number], [place] [address] May, [place] [address] [place] [address] May, [facility] [address] [id number] [place] [address] May [facility] [employer] [place] [address] [id number] [place] [address] May Diabetic neuropathy E11.40 and Diabetes E11.9 [facility] [place] [address] [id number] [place] [address] Apr [facility] [employer] [place] [address] [id number] [place] [address] Apr Subacute maxillary sinusitis J01.00 ; Hypoglycemia associated with type 2 diabetes mellitus E11.649 and Intractable episodic headache, unspecified headache type R51 [facility] [employer] [place] [address] [id number] [place] [address] Apr Diabetic neuropathy E11.40 and Anxiety F41.9 [facility] [place] [address] [id number] [place] [address] Apr [facility] [place] [address] [id number] [place] [address] Apr Type 2 diabetes mellitus with hyperglycemia E11.65 ; Subacute maxillary sinusitis J01.00 ; Diabetic neuropathy E11.40 and Sleep apnea in adult G47.30 [place] [address] [place] [id number] [place] [address] Apr, [facility] [place] [address] [id number] [place] [address] Apr [facility] [place] [address] [id number] [place] [address] Apr [facility] [place] [address] [id number] [place] [address] Apr Subacute maxillary sinusitis J01.00 [place] [address] [place] [id number] [place] [address] Apr, Right foot drop M21.371 [facility] [place] [address] [id number] [place] [address] Apr [facility] [place] [address] [id number] [place] [address] Mar [facility] [place] [address] [id number] [place] [address] Mar Essential hypertension I10 ; Type 2 diabetes mellitus with hyperglycemia E11.65 ; Encounter for immunization Z23 ; Cocaine abuse F14.10 and Hyperlipidemia, unspecified E78.5 [facility] [place] [address] [id number] [place] [address] Mar [place] [address] [place] [id number] [place] [address] Mar, [facility] [place] [address] [id number] [place] [address] Feb [facility] [place] [address] [id number] [place] [address] Feb Type 2 diabetes mellitus with hyperglycemia E11.65 and Acute right ankle pain M25.571 [facility] [address] [id number] [place] [address] Feb Weight loss R63.4 and Anxiety F41.9 [facility] [address] [address] Jan, [facility] [address] [place] [id number] [place] [address] Jan, [facility] [address] [place] [address] Jan, [place] [address] [place] [id number] [place] [address] Jan, Diabetes E11.9 [facility] [address] [id number] [place] [address] Jan Sprain of right ankle, unspecified ligament, initial encounter S93.401A [facility] [address] [id number] [place] [address] Jan Essential hypertension I10 ; Anxiety F41.9 and Type 2 diabetes mellitus with hyperglycemia E11.65 [facility] [address]65100[place], [place] [address] Jan, Diabetes E11.9 [facility] [address]65100[place], [place] [address] Jan, [facility] [address]65100[place], [place] [address] Jan, [facility] [address] [id number] [place] [address] Jan [facility] [address]65100[place], [place] [address] Jan, [facility] [address]65100[place], [place] [address] Jan, [facility] [address]65100[place], [place] [address] Jan, [facility] [address]65100[place], [place] [address] Jan, [facility] [address]65[address], [place] [address] Jan, Unintentional weight loss R63.4 ; Stage 2 chronic kidney disease N18.2 ; Exposure to hepatitis C Z20.5 ; Diabetic neuropathy E11.40 ; Obstructive sleep apnea syndrome G47.33 ; Essential hypertension I10 and Type 2 diabetes mellitus with hyperglycemia E11.65 [facility] [address] [place] [address] Jan, [facility] [address] [place] [id number] [place] [address] Jan, Type 2 diabetes mellitus with hyperglycemia E11.65 ; Diabetic neuropathy E11.40 and Essential hypertension I10 [facility] [address], [place] [address] Dec, Diabetes E11.9 [facility] [address], [place] [address] Dec, [facility] [address], [place] [address] Dec, [facility] [address], [place] [address] Dec, [facility] [address], [place] [address] Dec, Dental examination Z01.20 [facility] [address]65[address], [place] [address] Dec, [facility] [address], [place] [address] Dec, Diabetes E11.9 [facility] [address]65100[place], [place] [address] Dec, Stage 2 chronic kidney disease N18.2 ; Exposure to hepatitis C Z20.5 ; Obstructive sleep apnea syndrome G47.33 and Type 2 diabetes mellitus with hyperglycemia E11.65 [facility] [address] [place] [id number] [address] Dec, [facility] [address] [id number] [place] [address] Dec Diabetes E11.9 and Essential hypertension I10 [facility] [address] [place] [id number] [address] Nov, Diabetes E11.9 [facility] [address] [place] [id number], [place] [address] Nov, Right foot pain M79.671 [facility] [id number] [address] Nov, Right foot pain M79.671 [facility] [address] [id number] [place] [address] Nov Diabetes E11.9 [facility] [place] [address] [id number] [place] [address] Nov Diabetes E11.9 [facility] [address] [facility] [place] [id number] [address] 16 Nov, 2016 Dental examination Z01.20 [facility] [address] [id number] [place] [address] 09 Nov Diabetes E11.9 ; Cocaine abuse F14.10 and Shingles (herpes zoster) polyneuropathy B02.23 [facility] [place] [address] [id number] [place] [address] Nov [facility] [address] [facility] [id number], [place] [address] October, [facility] [address] [id number] [place] [address] October [facility] [address] [id number] [place] [address] October Unintentional weight loss R63.4 [facility] [place] [address] [id number] [place] [address] 10 October Abscess L02.91 [facility] [place] [address] [id number] [place] [address] October Diabetes E11.9 ; Unintentional weight loss R63.4 ; History of hematuria Z87.448 and Cocaine abuse F14.10 [facility] [place] [address] [id number] [place] [address] October Diabetes E11.9 [facility] [place] [address] [id number] [place] [address] October Essential hypertension I10 and Abscess L02.91 [facility] [place] [address] [id number] [place] [address] Jun [facility] [place] [address] [id number] [place] [address] May Breast cancer screening Z12.39 ; Diabetes E11.9 and Anxiety F41.9 [facility] [place] [address] [facility] [id number] [place] [address] 16 May, 2016 Diabetes E11.9 [facility] [place] [address] [id number] [place] [address] 15 May Diabetes E11.9 and Anemia D64.9 [facility] [place] [address] [id number] [place] [address] 14 May Anxiety F41.9 [facility] [place] [address] [id number] [place] [address] 08 May [facility] [place] [address] [id number] [place] [address] 06 May Dysuria R30.0 [facility] [place] [address] [id number] [place] [address] 06 May [facility] [place] [address] [id number] [place] [address] 05 May Dysuria R30.0 and Vaginal itching L29.8 [facility] [address] [facility] [id number], [place] [address] Apr, [address] [id number] [place] [address] Apr Diabetes E11.9 ; Dysuria R30.0 ; Diabetic neuropathy E11.40 ; Anemia D64.9 and Vaginal discharge N89.8 [facility] [address] [place] [id number] [address] Jun, [place] [address] [address] Jun, Anemia D64.9 ; Anxiety F41.9 ; Diabetes E11.9 and Diabetic neuropathy E11.40 [place] [id number] [place] [id number] May, [facility] [address] [place] [id number], [place] [address] Apr, [place] [id number] [place] [id number] Apr, Anemia D64.9 ; Anxiety F41.9 ; Diabetes E11.9 and Diabetic neuropathy E11.40 [place]44[place] [address] Mar, Acute costochondritis M94.0 [address]00565100[place] [id number] Mar, Bilateral low back pain without sciatica M54.5 and Bereavement Z63.4 [address]00565100[place] [address] Mar, Obstructive chronic bronchitis with acute exacerbation J44.1 ; Herpes zoster without complication B02.9 and [place] N91.2 [address]00565100[place] [address] Mar, [address]00565100[place] [address] Mar, [address] [id number] [place] [address] Feb, History of recent traumatic injury of head V15.52 ; Diabetes type 2, uncontrolled 250.02 and Visual disturbance 368.9 [place] [address] [facility] [id number] [place] [id number] Feb, History of recent traumatic injury of [...] infection 2004 Hospitalization History in rehab at [facility] 2016 Hospitalization History Stroke 05/2017 Hospitalization History surgeries Hospitalization History Elevated B/S 07/2017
--- OUTSIDE RECORDS SUMMARY | 2018-05-13 11:27 | XMS REPORT ---
Author Author BARRETT SCHRADER Organization [facility] Address [address] [place] [address] Care Team Providers Care Painter Foreman Name Role Phone BARRETT SCHRADER Unavailable PROBLEMS Type Condition ICD9-CM Code [id number] Code Onset Dates Condition Status SNOMED Code Problem Type 2 diabetes mellitus with hyperglycemia E11.65 Active [id number] Problem Sleep apnea in adult G47.30 Active 08208868 Problem Hyperlipidemia, unspecified E78.5 Active 90197442 Problem Abnormal mammogram of right breast R92.8 Active 239145960 Problem Breast asymmetry N64.89 Active 588494286 Problem Moderately severe depression F32.2 Active 859409418 Problem Hypoglycemia associated with type 2 diabetes mellitus E11.649 Active 824618359 Problem Hypoglycemia E16.2 Active 138851567 Problem Cerebrovascular accident (CVA), unspecified mechanism I63.9 Active 088650795 Problem Essential hypertension I10 Active 60431770 Problem Cocaine abuse F14.10 Active 19878049 Problem Diabetic neuropathy E11.40 Active 179163759 Problem Stage 2 chronic kidney disease N18.2 Active 469817312 Problem Anxiety F41.9 Active 49456886 Problem Obstructive sleep apnea syndrome G47.33 Active [id number] ALLERGIES No Information ENCOUNTERS Encounter Location Date Diagnosis [facility] [place] [address] [id number] [place] [address] Sep Type 2 diabetes mellitus with hyperglycemia E11.65 ; Cocaine abuse F14.10 and Open wound of right great toe, subsequent encounter S91.101D [facility] [address] [id number] [place] [address] Sep [facility] TechnologiesYENY [address] [id number] [place] [address] Aug [facility] V[facility] [address] [id number] [place] [address] Aug [facility] [place] [address] [id number] [place] [address] Aug Type 2 diabetes mellitus with hyperglycemia E11.65 [facility] [place] [address] [id number] [place] [address] Aug [facility] [address] [id number] [place] [address] Aug, [facility] [place] [address] [id number] [place] [address] Jul [facility] [place] [address] [id number] [place] [address] Jul Diabetic neuropathy E11.40 ; Essential hypertension I10 and Type 2 diabetes mellitus with hyperglycemia E11.65 [facility] [place] [address] [id number] [place] [address] Jul [facility] [place] [address] [id number] [place] [address] Jul [facility] [place] [address] [id number] [place] [address] Jul [facility] [place] [address] [id number] [place] [address] Jul [facility] [place] [address] [id number] [place] [address] Jul [facility] [place] [address] [id number] [place] [address] Jul Type 2 diabetes mellitus with hyperglycemia E11.65 ; Open wound of right great toe, subsequent encounter S91.101D ; Essential hypertension I10 and Diabetic neuropathy E11.[address] [facility] [address] [id number] [place] [id number] Jul, [facility] [place] [address] [id number] [place] [address] Jun [facility] [place] [address] [id number] [place] [address] Jun Type 2 diabetes mellitus with hyperglycemia E11.65 [facility] [place] [address] [id number] [place] [address] Jun [facility] [place] [address] [id number] [place] [address] Jun [facility] [place] [address] [id number] [place] [address] Jun Abnormal mammogram of right breast R92.8 and Breast asymmetry N64.89 [facility] [place] [address] [id number] [place] [address] 15 Jun [facility] [place] [address] [id number] [place] [address] Jun [facility] [place] [address] [id number] [place] [address] May Hypoglycemia E16.2 [facility] [place] [address] [id number] [place] [address] May Abnormal neurological exam R29.90 [facility] [place] [address] [id number] [place] [address] May [facility] [place] [address] [id number] [place] [address] May Type 2 diabetes mellitus with hyperglycemia E11.65 [facility] [place] [address] [id number] [place] [address] May Breast cancer screening Z12.31 and Hematuria, unspecified type R31.9 [facility] [place] [address] [id number] [place] [address] May [facility] [place] [address] [id number] [place] [address] May Type 2 diabetes mellitus with hyperglycemia E11.65 ; Essential hypertension I10 ; Moderately severe depression F32.2 and Confusion R41.0 [facility] [address] [id number] [place] [address] May, [facility] [place] [address] [id number] [place] [address] May Cerebrovascular accident (CVA), unspecified mechanism I63.9 ; Essential hypertension I10 ; Hyperlipidemia, unspecified E78.5 and Type 2 diabetes mellitus with hyperglycemia E11.65 [facility] [address] [id number] [place] [address] May, [facility] [address] [id number] [place] [address] May, [facility] [place] [address] [id number] [place] [address] May [facility] [place] [address] [id number] [place] [address] May Diabetic neuropathy E11.40 and Diabetes E11.9 [facility] [place] [address] [id number] [place] [address] Apr [facility] [place] [address] [id number] [place] [address] Apr Subacute maxillary sinusitis J01.00 ; Hypoglycemia associated with type 2 diabetes mellitus E11.649 and Intractable episodic headache, unspecified headache type R51 [facility] [place] [address] [id number] [place] [address] Apr Diabetic neuropathy E11.40 and Anxiety F41.9 [facility] [place] [address] [id number] [place] [address] Apr [facility] [place] [address] [id number] [place] [address] Apr Type 2 diabetes mellitus with hyperglycemia E11.65 ; Subacute maxillary sinusitis J01.00 ; Diabetic neuropathy E11.40 and Sleep apnea in adult G47.30 [facility] [address] [id number] [place] [address] Apr, [facility] [place] [address] [id number] [place] [address] Apr [facility] [place] [address] [id number] [place] [address] Apr [facility] [place] [address] [id number] [place] [address] Apr Subacute maxillary sinusitis J01.00 [place] [address] [address] Apr, Right foot drop M21.371 [facility] [place] [address] [id number] [place] [address] Apr [facility] [place] [address] [id number] [place] [address] Mar [facility] [place] [address] [id number] [place] [address] Mar Essential hypertension I10 ; Type 2 diabetes mellitus with hyperglycemia E11.65 ; Encounter for immunization Z23 ; Cocaine abuse F14.10 and Hyperlipidemia, unspecified E78.5 [facility] [place] [address] [id number] [place] [address] Mar [place] [address], [place] [address] Mar, [facility] [place] [address] [id number] [place] [address] Feb [facility] [place] [address] [id number] [place] [address] Feb Type 2 diabetes mellitus with hyperglycemia E11.65 and Acute right ankle pain M25.571 [facility] [place] [address] [id number] [place] [address] Feb Weight loss R63.4 and Anxiety F41.9 [place] [address], [place] [address] Jan, [place] [address], [place] [address] Jan, [place] [address] [place] [address] Jan, [place] [address], [place] [address] Jan, Diabetes E11.9 [facility] [place] [address] [id number] [place] [address] Jan Sprain of right ankle, unspecified ligament, initial encounter S93.401A [facility] [place] [address] [id number] [place] [address] Jan Essential hypertension I10 ; Anxiety F41.9 and Type 2 diabetes mellitus with hyperglycemia E11.65 [facility] [address] [place] [address] Jan, Diabetes E11.9 [facility] [id number] [place] [address] Jan, [facility] [id number] [place] [address] Jan, [facility] [address] [id number] [place] [address] Jan [facility] [id number] [place] [address] Jan, [facility] [id number] [place] [address] Jan, [facility] [id number] [place] [address] Jan, [facility] [id number] [place] [address] Jan, [facility] [address] [place] [address] Jan, Unintentional weight loss R63.4 ; Stage 2 chronic kidney disease N18.2 ; Exposure to hepatitis C Z20.5 ; Diabetic neuropathy E11.40 ; Obstructive sleep apnea syndrome G47.33 ; Essential hypertension I10 and Type 2 diabetes mellitus with hyperglycemia E11.65 [facility] [id number] [place] [address] Jan, [facility] [id number] [place] [address] Jan, Type 2 diabetes mellitus with hyperglycemia E11.65 ; Diabetic neuropathy E11.40 and Essential hypertension I10 [facility] [address] [id number], [place] [address] Dec, Diabetes E11.9 [facility] [address], [place] [address] Dec, [facility] [address], [place] [address] Dec, [facility] [address] [place] [address] Dec, [facility] [address], [place] [address] Dec, Dental examination Z01.20 [facility] [address], [place] [address] Dec, [facility] [address], [place] [address] Dec, Diabetes E11.9 [facility] [address], [place] [address] Dec, Stage 2 chronic kidney disease N18.2 ; Exposure to hepatitis C Z20.5 ; Obstructive sleep apnea syndrome G47.33 and Type 2 diabetes mellitus with hyperglycemia E11.65 [facility] [address] [id number], [place] [address] Dec, [facility] [place] [address] [id number] [place] [address] Dec Diabetes E11.9 and Essential hypertension I10 [facility] [address] [id number], [place] [address] Nov, Diabetes E11.9 [facility] [address] [id number], [place] [address] Nov, Right foot pain M79.671 [facility] [address] [id number] [address] Nov, Right foot pain M79.671 [facility] [place] [address] [id number] [place] [address] Nov Diabetes E11.9 [facility] [place] [address] [id number] [place] [address] Nov Diabetes E11.9 [facility] [address] [facility] [id number] [place] [id number] 16 Nov, 2016 Dental examination Z01.20 [facility] [place] [address] [id number] [place] [address] 09 Nov Diabetes E11.9 ; Cocaine abuse F14.10 and Shingles (herpes zoster) polyneuropathy B02.23 [facility] [place] [address] [id number] [place] [address] Nov [facility] [address] [id number] [place] [address] October, [facility] [place] [address] [id number] [place] [address] October [facility] [place] [address] [id number] [place] [address] October Unintentional weight loss R63.4 [facility] [place] [address] [id number] [place] [address] October Abscess L02.91 [facility] [place] [address] [id number] [place] [address] October Diabetes E11.9 ; Unintentional weight loss R63.4 ; History of hematuria Z87.448 and Cocaine abuse F14.10 [facility] [place] [address] [id number] [place] [address] October Diabetes E11.9 [facility] [place] [address] [id number] [place] [address] October Essential hypertension I10 and Abscess L02.91 [facility] [place] [address] [id number] [place] [address] Jun [facility] [place] [address] [id number] [place] [address] May Breast cancer screening Z12.39 ; Diabetes E11.9 and Anxiety F41.9 [facility] [address] [facility] [id number] [place] [id number] 16 May, 2016 Diabetes E11.9 [facility] [place] [address] [id number] [place] [address] 15 May Diabetes E11.9 and Anemia D64.9 [facility] [place] [address] [id number] [place] [address] 14 May Anxiety F41.9 [facility] [place] [address] [id number] [place] [address] 08 May [facility] [place] [address] [id number] [place] [address] May Dysuria R30.0 [facility] [place] [address] [id number] [place] [address] May [facility] [place] [address] [id number] [place] [address] May Dysuria R30.0 and Vaginal itching L29.8 [facility] [address] [id number], [place] [address] Apr, [facility] [address] [id number] [place] [address] Apr Diabetes E11.9 ; Dysuria R30.0 ; Diabetic neuropathy E11.40 ; Anemia D64.9 and Vaginal discharge N89.8 [facility] [address], [place] [address] Jun, [place] [id number] [id number] Jun, Anemia D64.9 ; Anxiety F41.9 ; Diabetes E11.9 and Diabetic neuropathy E11.40 [address] [id number] May, [facility] [address] [id number], [place] [address] Apr, [id number] [place] [id number] Apr, Anemia D64.9 ; Anxiety F41.9 ; Diabetes E11.9 and Diabetic neuropathy E11.40 [place] [id number] [place] [id number] Mar, Acute costochondritis M94.[address] [id number] Mar, Bilateral low back pain without sciatica M54.5 and Bereavement Z63.[address] [id number] Mar, Obstructive chronic bronchitis with acute exacerbation J44.1 ; Herpes zoster without complication B02.9 and [place] N91.2 [place] [id number] [place] [id number] Mar, [place] [id number] [place] [id number] Mar, [place] [id number] [place] [id number] Feb, History of recent traumatic injury of head V15.52 ; Diabetes type 2, uncontrolled 250.02 and Visual disturbance 368.[address] [place] [id number] Feb, History of recent traumatic injury of head V15.52 ; Visual disturbance 368.9 and Diabetes type 2, uncontrolled 250.02 IMMUNIZATIONS No Known Immunizations SOCIAL HISTORY Never Assessed REASON FOR VISIT Lab (walk-in) PLAN OF CARE VITAL SIGNS MEDICATIONS Unknown Medications RESULTS Name Result Date Reference Range C-PEPTIDE, SERUM 2017-01-08 C-Peptide, Serum 0.8 1.1-4.4 CMP 2017-01-08 Glucose, Serum 85 65-99 BUN 22 6-24 Creatinine, Serum 1.01 0.57-1.00 eGFR If NonAfricn Am 64 >59 eGFR If Africn Am 74 >59 BUN/Creatinine Ratio 22 9-23 Sodium, Serum 143 134-144 Potassium, Serum 4.9 3.5-5.2 Chloride, Serum 106 96-106 Carbon Dioxide, Total 20 18-29 Calcium, Serum 9.3 8.7-10.2 Protein, Total, Serum 6.8 6.0-8.5 Albumin, Serum 3.9 3.5-5.5 Globulin, Total 2.9 1.5-4.5 A/G Ratio 1.3 1.2-2.2 Bilirubin, Total 0.4 0.0-1.2 Alkaline Phosphatase, S 81 39-117 AST (SGOT) 19 0-40 ALT (SGPT) 20 0-32 PROCEDURES Procedure Date Ordered Result Body Site COMPREHEN METABOLIC PANEL Jan 08, 2017 ASSAY OF C-PEPTIDE Jan 08, 2017 VENIPUNCT, ROUTINE* Jan 08, 2017 INSTRUCTIONS MEDICATIONS ADMINISTERED No Known Medications [...] infection 2004 Hospitalization History in rehab at [facility] 2016 Hospitalization History Stroke 05/2017 Hospitalization History surgeries Hospitalization History Elevated B/S 07/2017
--- OUTSIDE RECORDS SUMMARY | 2018-05-13 11:28 | XMS REPORT ---
Author Author BARRETT SCHRADER Organization [facility] Address [address] [place] [address] Care Team Providers Care Kinesiologist Name Role Phone BARRETT SCHRADER Unavailable PROBLEMS Type Condition ICD9-CM Code RKV19-IA Code Onset Dates Condition Status SNOMED Code Problem Type 2 diabetes mellitus with hyperglycemia E11.65 Active 642073682009971 Problem Sleep apnea in adult G47.30 Active 10020168 Problem Hyperlipidemia, unspecified E78.5 Active 59706577 Problem Abnormal mammogram of right breast R92.8 Active 571347819 Problem Breast asymmetry N64.89 Active 750282750 Problem Moderately severe depression F32.2 Active 657161516 Problem Hypoglycemia associated with type 2 diabetes mellitus E11.649 Active 012052262 Problem Hypoglycemia E16.2 Active 919720147 Problem Cerebrovascular accident (CVA), unspecified mechanism I63.9 Active 386605144 Problem Essential hypertension I10 Active 15509138 Problem Cocaine abuse F14.10 Active 03325295 Problem Diabetic neuropathy E11.40 Active 659872501 Problem Stage 2 chronic kidney disease N18.2 Active 664662168 Problem Anxiety F41.9 Active 33242803 Problem Obstructive sleep apnea syndrome G47.33 Active 57800927 ALLERGIES No Information ENCOUNTERS Encounter Location Date Diagnosis [facility] [place] [address] [id number] [place] [address] Sep Type 2 diabetes mellitus with hyperglycemia E11.65 ; Cocaine abuse F14.10 and Open wound of right great toe, subsequent encounter S91.101D [facility] [address] [id number] [place] [address] Sep [facility] [address] [id number] [place] [address] Aug [facility] [address] [id number] [place] [address] Aug [facility] [place] [address] [id number] [place] [address] Aug Type 2 diabetes mellitus with hyperglycemia E11.65 [facility] [place] [address] [id number] [place] [address] Aug [facility] [address] [facility] [id number] [place] [address] Aug, [facility] [place] [address] [id number] [place] [address] Jul [facility] [place] [address] [id number] [place] [address] Jul Diabetic neuropathy E11.40 ; Essential hypertension I10 and Type 2 diabetes mellitus with hyperglycemia E11.65 [facility] [place] [address] [id number] [place] [address] Jul [facility] [place] [address] [id number] [place] [address] Jul [facility] [place] [address] [id number] [place] [address] Jul [facility] [place] [address] [id number] [place] [address] Jul [facility] [place] [address] [id number] [place] [address] Jul [facility] [place] [address] [id number] [place] [address] Jul Type 2 diabetes mellitus with hyperglycemia E11.65 ; Open wound of right great toe, subsequent encounter S91.101D ; Essential hypertension I10 and Diabetic neuropathy E11.[address] [facility] [address] [id number] [place] [id number] Jul, [facility] [place] [address] [id number] [place] [address] Jun [facility] [place] [address] [id number] [place] [address] Jun Type 2 diabetes mellitus with hyperglycemia E11.65 [facility] [place] [address] [id number] [place] [address] Jun [facility] [place] [address] [id number] [place] [address] Jun [facility] [place] [address] [id number] [place] [address] Jun Abnormal mammogram of right breast R92.8 and Breast asymmetry N64.89 [facility] [place] [address] [id number] [place] [address] 15 Jun [facility] [place] [address] [id number] [place] [address] Jun [facility] [place] [address] [id number] [place] [address] May Hypoglycemia E16.2 [facility] [place] [address] [id number] [place] [address] May Abnormal neurological exam R29.90 [facility] [place] [address] [id number] [place] [address] May [facility] [place] [address] [id number] [place] [address] May Type 2 diabetes mellitus with hyperglycemia E11.65 [facility] [place] [address] [id number] [place] [address] May Breast cancer screening Z12.31 and Hematuria, unspecified type R31.9 [facility] [place] [address] [id number] [place] [address] May [facility] [place] [address] [id number] [place] [address] May Type 2 diabetes mellitus with hyperglycemia E11.65 ; Essential hypertension I10 ; Moderately severe depression F32.2 and Confusion R41.0 [facility] [address] [facility] [id number] [place] [address] May, [facility] [place] [address] [id number] [place] [address] May Cerebrovascular accident (CVA), unspecified mechanism I63.9 ; Essential hypertension I10 ; Hyperlipidemia, unspecified E78.5 and Type 2 diabetes mellitus with hyperglycemia E11.65 [facility] [address] [facility] [id number] [place] [address] May, [facility] [address] [facility] [id number] [place] [address] May, [facility] [place] [address] [id number] [place] [address] May [facility] [place] [address] [id number] [place] [address] May Diabetic neuropathy E11.40 and Diabetes E11.9 [facility] [place] [address] [id number] [place] [address] Apr [facility] [place] [address] [id number] [place] [address] Apr Subacute maxillary sinusitis J01.00 ; Hypoglycemia associated with type 2 diabetes mellitus E11.649 and Intractable episodic headache, unspecified headache type R51 [facility] [place] [address] [id number] [place] [address] Apr Diabetic neuropathy E11.40 and Anxiety F41.9 [facility] [place] [address] [id number] [place] [address] Apr [facility] [place] [address] [id number] [place] [address] Apr Type 2 diabetes mellitus with hyperglycemia E11.65 ; Subacute maxillary sinusitis J01.00 ; Diabetic neuropathy E11.40 and Sleep apnea in adult G47.30 [facility] [address] [facility] [id number] [place] [address] Apr, [facility] [place] [address] [id number] [place] [address] Apr [facility] [place] [address] [id number] [place] [address] Apr [facility] [place] [address] [id number] [place] [address] Apr Subacute maxillary sinusitis J01.00 [place] [address]005[address] [address] Apr, Right foot drop M21.371 [facility] [place] [address] [id number] [place] [address] Apr [facility] [place] [address] [id number] [place] [address] Mar [facility] [place] [address] [id number] [place] [address] Mar Essential hypertension I10 ; Type 2 diabetes mellitus with hyperglycemia E11.65 ; Encounter for immunization Z23 ; Cocaine abuse F14.10 and Hyperlipidemia, unspecified E78.5 [facility] [place] [address] [id number] [place] [address] Mar [place] [address], [place] [address] Mar, [facility] [place] [address] [id number] [place] [address] Feb [facility] [place] [address] [id number] [place] [address] Feb Type 2 diabetes mellitus with hyperglycemia E11.65 and Acute right ankle pain M25.571 [facility] [place] [address] [id number] [place] [address] Feb Weight loss R63.4 and Anxiety F41.9 [place] [address], [place] [address] Jan, [place] [address] [address] Jan, [place] [address] [place] [address] [id number] [address] Jan, [place] [address] [address] Jan, Diabetes E11.9 [facility] [place] [address] [id number] [place] [address] Jan Sprain of right ankle, unspecified ligament, initial encounter S93.401A [facility] [place] [address] [id number] [place] [address] Jan Essential hypertension I10 ; Anxiety F41.9 and Type 2 diabetes mellitus with hyperglycemia E11.65 [facility] [address] [place] [address] Jan, Diabetes E11.9 [facility] [id number] [place] [address] Jan, [facility] [id number] [place] [address] Jan, [facility] [place] [address] [id number] [place] [address] Jan [facility] [id number] [place] [address] Jan, [facility] [id number] [place] [address] Jan, [facility] [id number] [place] [address] Jan, [facility] [id number] [place] [address] Jan, [facility] [address] [place] [address] Jan, Unintentional weight loss R63.4 ; Stage 2 chronic kidney disease N18.2 ; Exposure to hepatitis C Z20.5 ; Diabetic neuropathy E11.40 ; Obstructive sleep apnea syndrome G47.33 ; Essential hypertension I10 and Type 2 diabetes mellitus with hyperglycemia E11.65 [facility] [id number] [place] [address] Jan, [facility] [id number] [place] [address] Jan, Type 2 diabetes mellitus with hyperglycemia E11.65 ; Diabetic neuropathy E11.40 and Essential hypertension I10 [facility] [address] [id number] [address] Dec, Diabetes E11.9 [facility] [address] [address] Dec, [facility] [address] [address] Dec, [facility] [address] [place] [address] Dec, [facility] [address] [address] Dec, Dental examination Z01.20 [facility] [address], [place] [address] Dec, [facility] [address] [address] Dec, Diabetes E11.9 [facility] [address] [address] Dec, Stage 2 chronic kidney disease N18.2 ; Exposure to hepatitis C Z20.5 ; Obstructive sleep apnea syndrome G47.33 and Type 2 diabetes mellitus with hyperglycemia E11.65 [facility] [address] [id number] [address] Dec, [facility] [place] [address] [id number] [place] [address] Dec Diabetes E11.9 and Essential hypertension I10 [facility] [address] [id number] [address] Nov, Diabetes E11.9 [facility] [address] [id number] [address] Nov, Right foot pain M79.671 [facility] [address] [id number] [address] Nov, Right foot pain M79.671 [facility] [place] [address] [id number] [place] [address] Nov Diabetes E11.9 [facility] [place] [address] [id number] [place] [address] Nov Diabetes E11.9 [facility] [address] [facility] [id number] [place] [address] 16 Nov, 2016 Dental examination Z01.20 [facility] [place] [address] [id number] [place] [address] 09 Nov Diabetes E11.9 ; Cocaine abuse F14.10 and Shingles (herpes zoster) polyneuropathy B02.23 [facility] [place] [address] [id number] [place] [address] Nov [facility] [address] [facility] [id number] [place] [address] October, [facility] [place] [address] [id number] [place] [address] October [facility] [place] [address] [id number] [place] [address] October Unintentional weight loss R63.4 [facility] [place] [address] [id number] [place] [address] October Abscess L02.91 [facility] [place] [address] [id number] [place] [address] October Diabetes E11.9 ; Unintentional weight loss R63.4 ; History of hematuria Z87.448 and Cocaine abuse F14.10 [facility] [place] [address] [id number] [place] [address] October Diabetes E11.9 [facility] [place] [address] [id number] [place] [address] October Essential hypertension I10 and Abscess L02.91 [facility] [place] [address] [id number] [place] [address] Jun [facility] [place] [address] [id number] [place] [address] May Breast cancer screening Z12.39 ; Diabetes E11.9 and Anxiety F41.9 [facility] [address] [facility] [id number] [place] [id number] 16 May, 2016 Diabetes E11.9 [facility] [place] [address] [id number] [place] [address] 15 May Diabetes E11.9 and Anemia D64.9 [facility] [place] [address] [id number] [place] [address] 14 May Anxiety F41.9 [facility] [place] [address] [id number] [place] [address] 08 May [facility] [place] [address] [id number] [place] [address] May Dysuria R30.0 [facility] [place] [address] [id number] [place] [address] May [facility] [place] [address] [id number] [place] [address] May Dysuria R30.0 and Vaginal itching L29.8 [facility] [address] [id number] [address] Apr, [facility] [address] [id number] [place] [address] Apr Diabetes E11.9 ; Dysuria R30.0 ; Diabetic neuropathy E11.40 ; Anemia D64.9 and Vaginal discharge N89.8 [facility] [address]005[address]100[place], [place] [address] Jun, [place] [id number] [id number] Jun, Anemia D64.9 ; Anxiety F41.9 ; Diabetes E11.9 and Diabetic neuropathy E11.40 [address]100[place] [id number] May, [facility] [address] [id number], [place] [address] Apr, [id number] [address] Apr, Anemia D64.9 ; Anxiety F41.9 ; Diabetes E11.9 and Diabetic neuropathy E11.40 [place] [id number] [place] [id number] Mar, Acute costochondritis M94.0 [place] [id number] [place] [id number] Mar, Bilateral low back pain without sciatica M54.5 and Bereavement Z63.[address] [id number] Mar, Obstructive chronic bronchitis with acute exacerbation J44.1 ; Herpes zoster without complication B02.9 and [place] N91.2 [place] [address] [place] [id number] Mar, [place] [id number] [place] [id number] Mar, [place] [id number] [place] [id number] Feb, History of recent traumatic injury of head V15.52 ; Diabetes type 2, uncontrolled 250.02 and Visual disturbance 368.9 [address]100[place] [address] Feb, History of recent traumatic injury of head V15.52 ; Visual disturbance 368.9 and Diabetes type 2, uncontrolled 250.02 IMMUNIZATIONS No Known Immunizations SOCIAL HISTORY Never Assessed REASON FOR VISIT Refill request PLAN OF CARE VITAL SIGNS MEDICATIONS Medication Instructions Dosage Frequency Start Date End Date Duration Status Glucocard Expression Test - as directed 12Nov, Active RESULTS No Results PROCEDURES No Known [...] infection 2004 Hospitalization History in rehab at [facility] 2016 Hospitalization History Stroke 05/2017 Hospitalization History surgeries Hospitalization History Elevated B/S 07/2017
--- OUTSIDE RECORDS SUMMARY | 2018-05-13 11:28 | XMS REPORT ---
Author Author [facility] Address [address] [place] [address] Care Team Providers Care Bath Solution Maker Name Role Phone SAFIA LANE Unavailable PROBLEMS Type Condition ICD9-CM Code TSW90-DY Code Onset Dates Condition Status SNOMED Code Problem Type 2 diabetes mellitus with hyperglycemia E11.65 Active [id number] Problem Sleep apnea in adult G47.30 Active 54420023 Problem Hyperlipidemia, unspecified E78.5 Active 66739351 Problem Abnormal mammogram of right breast R92.8 Active 690334225 Problem Breast asymmetry N64.89 Active 413742236 Problem Moderately severe depression F32.2 Active 586741010 Problem Hypoglycemia associated with type 2 diabetes mellitus E11.649 Active 638980913 Problem Hypoglycemia E16.2 Active 323699988 Problem Cerebrovascular accident (CVA), unspecified mechanism I63.9 Active 944958667 Problem Essential hypertension I10 Active 33822205 Problem Cocaine abuse F14.10 Active 00804453 Problem Diabetic neuropathy E11.40 Active 199114540 Problem Stage 2 chronic kidney disease N18.2 Active 856475024 Problem Anxiety F41.9 Active 75553558 Problem Obstructive sleep apnea syndrome G47.33 Active 65026574 ALLERGIES No Information ENCOUNTERS Encounter Location Date Diagnosis [facility] [address] [id number] [place] [address] Nov [facility] [address] [id number] [place] [address] Nov [facility] [address] [id number] [place] [address] October [facility] [address] [id number] [place] [address] October [facility] [address] [id number] [place] [address] October Type 2 diabetes mellitus with hyperglycemia E11.65 and Surgical procedure on lower extremity within past 6 months Z98.890 [facility] [place] [address] [id number] [place] [address] October [facility] [place] [address] [id number] [place] [address] October [facility] [address] [facility] [id number] [place] [address] October, [facility] [place] [address] [id number] [place] [address] October Sleep apnea in adult G47.30 [facility] [place] [address] [id number] [place] [address] October Type 2 diabetes mellitus with hyperglycemia E11.65 [facility] [place] [address] [id number] [place] [address] Sep [facility] [place] [address] [id number] [place] [address] Sep Breast asymmetry N64.89 [facility] [place] [address] [id number] [place] [address] Sep [facility] [place] [address] [id number] [place] [address] Sep Type 2 diabetes mellitus with hyperglycemia E11.65 ; Cocaine abuse F14.10 and Open wound of right great toe, subsequent encounter S91.101D [facility] [place] [address] [id number] [place] [address] Sep [facility] [place] [address] [id number] [place] [address] Aug [facility] [place] [address] [id number] [place] [address] Aug [facility] [place] [address] [id number] [place] [address] Aug Type 2 diabetes mellitus with hyperglycemia E11.65 [facility] [place] [address] [id number] [place] [address] Aug [facility] [address] [facility] [id number] [place] [address] Aug, [facility] [place] [address] [id number] [place] [address] Jul [facility] [place] [address] [id number] [place] [address] Jul Diabetic neuropathy E11.40 ; Essential hypertension I10 and Type 2 diabetes mellitus with hyperglycemia E11.65 [facility] [place] [address] [id number] [place] [address] Jul [facility] [place] [address] [id number] [place] [address] Jul [facility] [place] [address] [id number] [place] [address] Jul [facility] [place] [address] [id number] [place] [address] Jul [facility] [place] [address] [id number] [place] [address] Jul [facility] [place] [address] [id number] [place] [address] Jul Type 2 diabetes mellitus with hyperglycemia E11.65 ; Open wound of right great toe, subsequent encounter S91.101D ; Essential hypertension I10 and Diabetic neuropathy E11.[address] [facility] [address] [id number] [place] [address] Jul, [facility] [place] [address] [id number] [place] [address] Jun [facility] [place] [address] [id number] [place] [address] Jun Type 2 diabetes mellitus with hyperglycemia E11.65 [facility] [place] [address] [id number] [place] [address] Jun [facility] [place] [address] [id number] [place] [address] Jun [facility] [place] [address] [id number] [place] [address] Jun Abnormal mammogram of right breast R92.8 and Breast asymmetry N64.89 [facility] [place] [address] [id number] [place] [address] Jun [facility] [place] [address] [id number] [place] [address] Jun [facility] [place] [address] [id number] [place] [address] May Hypoglycemia E16.2 [facility] [place] [address] [id number] [place] [address] May Abnormal neurological exam R29.90 [facility] [place] [address] [id number] [place] [address] May [facility] [place] [address] [id number] [place] [address] May Type 2 diabetes mellitus with hyperglycemia E11.65 [facility] [place] [address] [id number] [place] [address] May Breast cancer screening Z12.31 and Hematuria, unspecified type R31.9 [facility] [place] [address] [id number] [place] [address] May [facility] [place] [address] [id number] [place] [address] May Type 2 diabetes mellitus with hyperglycemia E11.65 ; Essential hypertension I10 ; Moderately severe depression F32.2 and Confusion R41.0 [place] [address] [address] May, [facility]ITALSkyline International DevelopmentHART [address] [id number] [place] [address] May Cerebrovascular accident (CVA), unspecified mechanism I63.9 ; Essential hypertension I10 ; Hyperlipidemia, unspecified E78.5 and Type 2 diabetes mellitus with hyperglycemia E11.65 [place] [address] [place] [address] May, [place] [address] [place] [id number] [place] [address] May, [facility] [place] [address] [id number] [place] [address] May [facility] [place] [address] [id number] [place] [address] May Diabetic neuropathy E11.40 and Diabetes E11.9 [facility] [place] [address] [id number] [place] [address] Apr [facility] [place] [address] [id number] [place] [address] Apr Subacute maxillary sinusitis J01.00 ; Hypoglycemia associated with type 2 diabetes mellitus E11.649 and Intractable episodic headache, unspecified headache type R51 [facility] [place] [address] [id number] [place] [address] Apr Diabetic neuropathy E11.40 and Anxiety F41.9 [facility] [place] [address] [id number] [place] [address] Apr [facility] [place] [address] [id number] [place] [address] Apr Type 2 diabetes mellitus with hyperglycemia E11.65 ; Subacute maxillary sinusitis J01.00 ; Diabetic neuropathy E11.40 and Sleep apnea in adult G47.30 [place] [address] [facility] [id number] [place] [address] Apr, [facility] [place] [address] [id number] [place] [address] Apr [facility] [place] [address] [id number] [place] [address] Apr [facility] [place] [address] [id number] [place] [address] Apr Subacute maxillary sinusitis J01.00 [facility] [address] [facility] [id number] [place] [address] Apr, Right foot drop M21.371 [facility] [place] [address] [id number] [place] [address] Apr [facility] [place] [address] [id number] [place] [address] Mar [facility] HOSPITALG[facility] [address] [id number] [place] [address] Mar Essential hypertension I10 ; Type 2 diabetes mellitus with hyperglycemia E11.65 ; Encounter for immunization Z23 ; Cocaine abuse F14.10 and Hyperlipidemia, unspecified E78.5 [facility] [place] [address] [id number] [place] [address] Mar [place] [address], [place] [address] Mar, [facility] [address] [id number] [place] [address] Feb [facility] [address] [id number] [place] [address] Feb Type 2 diabetes mellitus with hyperglycemia E11.65 and Acute right ankle pain M25.571 [facility] [place] [address] [id number] [place] [address] Feb Weight loss R63.4 and Anxiety F41.9 [place] [address] [place] [address] Jan, [place] [address] [place] [id number] [place] [address] Jan, [place] [address] [place] [address] Jan, [place] [address] [place] [id number] [place] [address] Jan, Diabetes E11.9 [facility] [place] [address] [id number] [place] [address] Jan Sprain of right ankle, unspecified ligament, initial encounter S93.401A [facility]ITAL[facility] [address] [id number] [place] [address] Jan Essential hypertension I10 ; Anxiety F41.9 and Type 2 diabetes mellitus with hyperglycemia E11.65 [place] [address] [facility] [id number] [address] Jan, Diabetes E11.9 [facility] [address] [facility] [id number] [address] Jan, [facility] [address], [place] [address] Jan, [address] [id number] [place] [address] Jan [facility] [address] [facility] [id number] [address] Jan, [facility] [address], [place] [address] Jan, [facility] [address], [place] [address] Jan, [facility] [address], [place] [address] Jan, [facility] [address], [place] [address] Jan, Unintentional weight loss R63.4 ; Stage 2 chronic kidney disease N18.2 ; Exposure to hepatitis C Z20.5 ; Diabetic neuropathy E11.40 ; Obstructive sleep apnea syndrome G47.33 ; Essential hypertension I10 and Type 2 diabetes mellitus with hyperglycemia E11.65 [facility] [address], [place] [address] Jan, [facility] [address] [place] [id number], [place] [address] Jan, Type 2 diabetes mellitus with hyperglycemia E11.65 ; Diabetic neuropathy E11.40 and Essential hypertension I10 [facility] [address] [address] Dec, Diabetes E11.9 [facility] [address] [place] [id number] [address] Dec, [facility] [address], [place] [address] Dec, [facility] [address], [place] [address] Dec, [facility] [address], [place] [address] Dec, Dental examination Z01.20 [facility] [address] [place] [id number] [place] [address] Dec, [facility] [address] [place] [address] Dec, Diabetes E11.9 [place] [address] [place] [id number] [place] [address] Dec, Stage 2 chronic kidney disease N18.2 ; Exposure to hepatitis C Z20.5 ; Obstructive sleep apnea syndrome G47.33 and Type 2 diabetes mellitus with hyperglycemia E11.65 [facility] [address], [place] [address] Dec, [facility] MAN [address] [id number] [place] [address] Dec Diabetes E11.9 and Essential hypertension I10 [facility] [address] [place] [address] Nov, Diabetes E11.9 [facility] [address], [place] [address] Nov, Right foot pain M79.671 [facility] [id number] [address] Nov, Right foot pain M79.671 [facility] MAN [address] [id number] [place] [address] Nov Diabetes E11.9 [facility] [address] [id number] [place] [address] Nov Diabetes E11.9 [facility] [id number] [address] 16 Nov, 2016 Dental examination Z01.20 [facility] [place] [address] [id number] [place] [address] 09 Nov Diabetes E11.9 ; Cocaine abuse F14.10 and Shingles (herpes zoster) polyneuropathy B02.23 [facility] [place] [address] [id number] [place] [address] Nov [facility] [address] [facility] [id number] [place] [address] October, [facility] [place] [address] [id number] [place] [address] October [facility] [place] [address] [id number] [place] [address] October Unintentional weight loss R63.4 [facility] [place] [address] [id number] [place] [address] October Abscess L02.91 [facility] [place] [address] [id number] [place] [address] October Diabetes E11.9 ; Unintentional weight loss R63.4 ; History of hematuria Z87.448 and Cocaine abuse F14.10 [facility] [place] [address] [id number] [place] [address] October Diabetes E11.9 [facility] [place] [address] [id number] [place] [address] October Essential hypertension I10 and Abscess L02.91 [facility] [place] [address] [id number] [place] [address] Jun [facility] [place] [address] [id number] [place] [address] May Breast cancer screening Z12.39 ; Diabetes E11.9 and Anxiety F41.9 [facility] [place] [address] [id number] [place] [address] May, Diabetes E11.9 [facility] [place] [address] [id number] [place] [address] May Diabetes E11.9 and Anemia D64.9 [facility] [place] [address] [id number] [place] [address] 14 May Anxiety F41.9 [facility] [place] [address] [id number] [place] [address] 08 May [facility] [place] [address] [id number] [place] [address] 06 May Dysuria R30.0 [facility] [place] [address] [id number] [place] [address] 06 May [facility] [place] [address] [id number] [place] [address] 05 May Dysuria R30.0 and Vaginal itching L29.8 [facility] [address]100[place], [place] [address] Apr, [facility] [place] [address] [id number] [place] [address] 14 Apr Diabetes E11.9 ; Dysuria R30.0 ; Diabetic neuropathy E11.40 ; Anemia D64.9 and Vaginal discharge N89.8 [facility] [address] [place] [id number] [place] [address] Jun, [address]65100[place] [id number] Jun, Anemia D64.9 ; Anxiety F41.9 ; Diabetes E11.9 and Diabetic neuropathy E11.40 [address] [id number] May, [facility] [address] [place] [id number] [place] [address] Apr, [place] [id number] [place] [id number] Apr, Anemia D64.9 ; Anxiety F41.9 ; Diabetes E11.9 and Diabetic neuropathy E11.40 [place] [id number] [place] [id number] Mar, Acute costochondritis M94.0 [address]65[address] [id number] Mar, Bilateral low back pain without sciatica M54.5 and Bereavement Z63.[address]65[address] [address] 14 Mar, 2015 Obstructive chronic bronchitis with acute exacerbation J44.1 ; Herpes zoster without complication B02.9 [facility] N91.[address]65[address] [address] Mar, [place] [address] [id number] Mar, [address] [address] Feb, History of recent traumatic injury of head V15.52 ; Diabetes type 2, uncontrolled 250.02 and Visual disturbance 368.9 [place] [id number] [address] Feb, History of recent traumatic injury of [...] infection 2004 Hospitalization History in [facility] 2016 Hospitalization History Stroke 05/2017 Hospitalization History surgeries Hospitalization History Elevated B/S 07/2017 Hospitalization History [facility] - blood clot [facility] 10/2017
--- OUTSIDE RECORDS SUMMARY | 2018-05-13 11:29 | XMS REPORT ---
Author Author BARRETT SCHRADER Organization [facility] Address [address] [place] [address] Care Team Providers Care Insurance Operations Rep Name Role Phone BARRETT SCHRADER Unavailable PROBLEMS Type Condition ICD9-CM Code XKV70-KV Code Onset Dates Condition Status SNOMED Code Problem Type 2 diabetes mellitus with hyperglycemia E11.65 Active 287110079561788 Problem Sleep apnea in adult G47.30 Active 16023590 Problem Hyperlipidemia, unspecified E78.5 Active 99145640 Problem Abnormal mammogram of right breast R92.8 Active 959329367 Problem Breast asymmetry N64.89 Active 603198332 Problem Moderately severe depression F32.2 Active 993080103 Problem Hypoglycemia associated with type 2 diabetes mellitus E11.649 Active 015006621 Problem Hypoglycemia E16.2 Active 925500879 Problem Cerebrovascular accident (CVA), unspecified mechanism I63.9 Active 985370031 Problem Essential hypertension I10 Active 29939381 Problem Cocaine abuse F14.10 Active 91656009 Problem Diabetic neuropathy E11.40 Active 772370927 Problem Stage 2 chronic kidney disease N18.2 Active 924130610 Problem Anxiety F41.9 Active 43880804 Problem Obstructive sleep apnea syndrome G47.33 Active 88332452 ALLERGIES No Information ENCOUNTERS Encounter Location Date Diagnosis [facility] [address] [id number] [place] [address] Sep [facility] [address] [id number] [place] [address] Sep [facility] asymmetry N64.89 [facility] [place] [address] [id number] [place] [address] Sep [facility] [address] [id number] [place] [address] Sep Type 2 diabetes mellitus with hyperglycemia E11.65 ; Cocaine abuse F14.10 and Open wound of right great toe, subsequent encounter S91.101D [facility] [place] [address] [id number] [place] [address] Sep [facility] [place] [address] [id number] [place] [address] Aug [facility] [place] [address] [id number] [place] [address] Aug [facility] [place] [address] [id number] [place] [address] Aug Type 2 diabetes mellitus with hyperglycemia E11.65 [facility] [place] [address] [id number] [place] [address] Aug [facility] [address] [facility] [id number] [place] [address] Aug, [facility] [place] [address] [id number] [place] [address] Jul [facility] [place] [address] [id number] [place] [address] Jul Diabetic neuropathy E11.40 ; Essential hypertension I10 and Type 2 diabetes mellitus with hyperglycemia E11.65 [facility] [place] [address] [id number] [place] [address] Jul [facility] [place] [address] [id number] [place] [address] Jul [facility] [place] [address] [id number] [place] [address] Jul [facility] [place] [address] [id number] [place] [address] Jul [facility] [place] [address] [id number] [place] [address] Jul [facility] [place] [address] [id number] [place] [address] Jul Type 2 diabetes mellitus with hyperglycemia E11.65 ; Open wound of right great toe, subsequent encounter S91.101D ; Essential hypertension I10 and Diabetic neuropathy E11.[address] [facility] [address] [id number] [place] [address] 05 Jul, 2017 [facility] [place] [address] [id number] [place] [address] Jun [facility] [place] [address] [id number] [place] [address] Jun Type 2 diabetes mellitus with hyperglycemia E11.65 [facility] [place] [address] [id number] [place] [address] Jun [facility] [place] [address] [id number] [place] [address] Jun [facility] [place] [address] [id number] [place] [address] 17 Jun Abnormal mammogram of right breast R92.8 and Breast asymmetry N64.89 [facility] [place] [address] [id number] [place] [address] 15 Jun [facility] [place] [address] [id number] [place] [address] Jun [facility] [place] [address] [id number] [place] [address] May Hypoglycemia E16.2 [facility] [place] [address] [id number] [place] [address] May Abnormal neurological exam R29.90 [facility] [place] [address] [id number] [place] [address] May [facility] [place] [address] [id number] [place] [address] May Type 2 diabetes mellitus with hyperglycemia E11.65 [facility] [place] [address] [id number] [place] [address] May Breast cancer screening Z12.31 and Hematuria, unspecified type R31.9 [facility] [place] [address] [id number] [place] [address] May [facility] [place] [address] [id number] [place] [address] May Type 2 diabetes mellitus with hyperglycemia E11.65 ; Essential hypertension I10 ; Moderately severe depression F32.2 and Confusion R41.0 [place] [address] [id number] [place] [address] May, [facility] [address] [id number] [place] [address] May Cerebrovascular accident (CVA), unspecified mechanism I63.9 ; Essential hypertension I10 ; Hyperlipidemia, unspecified E78.5 and Type 2 diabetes mellitus with hyperglycemia E11.65 [place] [address] [id number] [place] [address] May, [place] [address] [id number], [place] [address] May, [facility] [address] [id number] [place] [address] May [facility] [address] [id number] [place] [address] May Diabetic neuropathy E11.40 and Diabetes E11.9 [facility] [place] [address] [id number] [place] [address] Apr [facility] [address] [id number] [place] [address] Apr Subacute maxillary sinusitis J01.00 ; Hypoglycemia associated with type 2 diabetes mellitus E11.649 and Intractable episodic headache, unspecified headache type R51 [facility] [place] [address] [id number] [place] [address] Apr Diabetic neuropathy E11.40 and Anxiety F41.9 [facility] [place] [address] [id number] [place] [address] Apr [facility] [address] [id number] [place] [address] Apr Type 2 diabetes mellitus with hyperglycemia E11.65 ; Subacute maxillary sinusitis J01.00 ; Diabetic neuropathy E11.40 and Sleep apnea in adult G47.30 [place] [address] [facility] [id number], [place] [address] Apr, [facility] [place] [address] [id number] [place] [address] Apr [facility] [place] [address] [id number] [place] [address] Apr [facility] [place] [address] [id number] [place] [address] Apr Subacute maxillary sinusitis J01.00 [facility] [address]100[place], [place] [address] Apr, Right foot drop M21.371 [facility] [place] [address] [id number] [place] [address] Apr [facility] [place] [address] [id number] [place] [address] Mar [facility] [place] [address] [id number] [place] [address] Mar Essential hypertension I10 ; Type 2 diabetes mellitus with hyperglycemia E11.65 ; Encounter for immunization Z23 ; Cocaine abuse F14.10 and Hyperlipidemia, unspecified E78.5 [facility] [place] [address] [id number] [place] [address] Mar [facility] [address]65[address], [place] [address] Mar, [facility] [place] [address] [id number] [place] [address] Feb [facility] [place] [address] [id number] [place] [address] Feb Type 2 diabetes mellitus with hyperglycemia E11.65 and Acute right ankle pain M25.571 [facility] [place] [address] [id number] [place] [address] Feb Weight loss R63.4 and Anxiety F41.9 [facility] [address] [id number] [place] [address] Jan, [facility] [address]00565100[place], [place] [address] Jan, [facility] [address]00565100[place], [place] [address] Jan, [facility] [address] [place] [address] Jan, Diabetes E11.9 [facility] MAN [address] [id number] [place] [address] Jan Sprain of right ankle, unspecified ligament, initial encounter S93.401A [facility] [address] [id number] [place] [address] Jan Essential hypertension I10 ; Anxiety F41.9 and Type 2 diabetes mellitus with hyperglycemia E11.65 [facility] [address] [place] [address] Jan, Diabetes E11.9 [facility] [address] [place] [address] Jan, [facility] [address]65100[place], [place] [address] Jan, [facility] [place] [address] [id number] [place] [address] Jan [facility] [address]00565100[place], [place] [address] Jan, [facility] [address]00565100[place], [place] [address] Jan, [facility] [address]65100[place], [place] [address] Jan, [facility] [address]00565100[place], [place] [address] Jan, [facility] [address]00565100[place], [place] [address] Jan, Unintentional weight loss R63.4 ; Stage 2 chronic kidney disease N18.2 ; Exposure to hepatitis C Z20.5 ; Diabetic neuropathy E11.40 ; Obstructive sleep apnea syndrome G47.33 ; Essential hypertension I10 and Type 2 diabetes mellitus with hyperglycemia E11.65 [facility] [address]65100[place], [place] [address] Jan, [facility] [address] [place] [address] Jan, Type 2 diabetes mellitus with hyperglycemia E11.65 ; Diabetic neuropathy E11.40 and Essential hypertension I10 [facility] [address] [place] [address] Dec, Diabetes E11.9 [facility] [address] [place] [address] Dec, [facility] [address] [place] [address] Dec, [facility] [address] [place] [address] Dec, [facility] [address] [place] [address] Dec, Dental examination Z01.20 [facility] [address]65100[place], [place] [address] Dec, [facility] [address]65[address], [place] [address] Dec, Diabetes E11.9 [facility] [address]65100[place], [place] [address] Dec, Stage 2 chronic kidney disease N18.2 ; Exposure to hepatitis C Z20.5 ; Obstructive sleep apnea syndrome G47.33 and Type 2 diabetes mellitus with hyperglycemia E11.65 [facility] [address]00565100[place], [place] [address] Dec, [facility] [place] [address] [id number] [place] [address] Dec Diabetes E11.9 and Essential hypertension I10 [facility] [address]00565100[place], [place] [address] Nov, Diabetes E11.9 [facility] [address] [facility] [id number] [place] [address] Nov, Right foot pain M79.671 [facility] [address] [id number] [place] [address] Nov, Right foot pain M79.671 [facility] [place] [address] [id number] [place] [address] Nov Diabetes E11.9 [facility] [place] [address] [id number] [place] [address] Nov Diabetes E11.9 [facility] [address] [place] [id number] [place] [address] Nov, Dental examination Z01.20 [facility] [place] [address] [id number] [place] [address] Nov Diabetes E11.9 ; Cocaine abuse F14.10 and Shingles (herpes zoster) polyneuropathy B02.23 [facility] [place] [address] [id number] [place] [address] Nov [facility] [address] [facility] [id number] [place] [address] October, [facility] [place] [address] [id number] [place] [address] October [facility] [place] [address] [id number] [place] [address] October Unintentional weight loss R63.4 [facility] [place] [address] [id number] [place] [address] October Abscess L02.91 [facility] [place] [address] [id number] [place] [address] October Diabetes E11.9 ; Unintentional weight loss R63.4 ; History of hematuria Z87.448 and Cocaine abuse F14.10 [facility] [place] [address] [id number] [place] [address] October Diabetes E11.9 [facility] [place] [address] [id number] [place] [address] October Essential hypertension I10 and Abscess L02.91 [facility] [place] [address] [id number] [place] [address] Jun [facility] [place] [address] [id number] [place] [address] May Breast cancer screening Z12.39 ; Diabetes E11.9 and Anxiety F41.9 [facility] [address] [id number] [address] May, Diabetes E11.9 [facility] [place] [address] [id number] [place] [address] 15 May Diabetes E11.9 and Anemia D64.9 [facility] [place] [address] [id number] [place] [address] May Anxiety F41.9 [facility] [place] [address] [id number] [place] [address] May [facility] [place] [address] [id number] [place] [address] May Dysuria R30.0 [facility] [place] [address] [id number] [place] [address] 06 May [facility] [place] [address] [id number] [place] [address] 05 May Dysuria R30.0 and Vaginal itching L29.8 [place] [address] [id number], [place] [address] Apr, [facility] [place] [address] [id number] [place] [address] 14 Apr Diabetes E11.9 ; Dysuria R30.0 ; Diabetic neuropathy E11.40 ; Anemia D64.9 and Vaginal discharge N89.8 [facility] [address] [id number], [place] [address] Jun, [facility] [place] [address] [facility] [id number] [id number] Jun, Anemia D64.9 ; Anxiety F41.9 ; Diabetes E11.9 and Diabetic neuropathy E11.40 [address]00565100[place] [address] May, [facility] [address] 3711265100[place] [address] Apr, [place] [address] [place] [id number] Apr, Anemia D64.9 ; Anxiety F41.9 ; Diabetes E11.9 and Diabetic neuropathy E11.40 [place] [address] [place] [id number] Mar, Acute costochondritis M94.0 [place] [address] [place] [id number] Mar, Bilateral low back pain without sciatica M54.5 and Bereavement Z63.4 [place] [address] [place] [id number] Mar, Obstructive chronic bronchitis with acute exacerbation J44.1 ; Herpes zoster without complication B02.9 and Maddock N91.[address] [place] [id number] Mar, [place] [address] [place] [id number] Mar, [place] [address] [place] [id number] Feb, History of recent traumatic injury of head V15.52 ; Diabetes type 2, uncontrolled 250.02 and Visual disturbance 368.9 [place] [address] [place] [id number] Feb, History of recent traumatic injury of [...] infection 2004 Hospitalization History in [facility]hab at [facility] 2016 Hospitalization History Stroke 05/2017 Hospitalization History surgeries Hospitalization History Elevated B/S 07/2017
--- OUTSIDE RECORDS SUMMARY | 2018-05-13 11:29 | XMS REPORT ---
Author Author CHRIS BECKWITH [facility] Address [address] [place] [address] Care Team Providers Care Property Preservation Specialist Name Role Phone CHRIS BECKWITH Unavailable PROBLEMS Type Condition ICD9-CM Code WSD87-EQ Code Onset Dates Condition Status SNOMED Code Problem Diabetic neuropathy E11.40 Active 855106517 Problem Anxiety F41.9 Active 07390574 Problem Type 2 diabetes mellitus with hyperglycemia E11.65 Active 644072957477366 Problem Obstructive sleep apnea syndrome G47.33 Active 89534786 Problem Essential hypertension I10 Active 68782216 Problem Anemia D64.9 Active 682023202 Problem Stage 2 chronic kidney disease N18.2 Active 959655873 Problem Cocaine abuse F14.10 Active 33037561 ALLERGIES Substance Reaction Event Type Date Status Phenergan nausea Drug Allergy May, Active Penicillin V Potassium nausea Drug Allergy May, Active SOCIAL HISTORY No smoking Hx information available PLAN OF CARE Activity Details Follow Up 1 Year Reason:WWE VITAL SIGNS Height 63.50 in 2016-05-29 Weight 124.0 lbs 2016-05-29 Temperature 98.8 degrees Fahrenheit 2016-05-29 Heart Rate 88 bpm 2016-05-29 Respiratory Rate 18 2016-05-29 BMI 21.62 kg/m2 2016-05-29 Blood pressure systolic 128 mmHg 2016-05-29 Blood pressure diastolic 82 mmHg 2016-05-29 MEDICATIONS Medication Instructions Dosage Frequency Start Date End Date Duration Status Lyrica 100 MG Orally Twice a day 1 capsule 12h Active Simvastatin 40 MG Orally Once a day 1 tablet in the evening 24h Active Ropinirole HCl 1 MG 1 tablet 1 to 3 hours before bedtime 30 days Active Paxil 20 mg Orally Once a day 1 tablet in the morning 24h May, Active MetFORMIN HCl ER 500 MG Orally 2 times a day 2 tablet 12h Apr, 30 day(s) Active Pen [place] 31G X 6 MM as directed 24h Apr, 30 days Active Lantus 100 UNIT/ML Subcutaneous Once a day at night 15 units Active Lisinopril 10 mg Orally Once a day 1 tablet 24h Active RESULTS Name Result Date Reference Range Mammogram, Bilateral Screening PROCEDURES Procedure Date Ordered Related Diagnosis Body Site Preventive Care Est Pt. Age 40-64 May 29, 2016 IMMUNIZATIONS No Known Immunizations
--- OUTSIDE RECORDS SUMMARY | 2018-05-13 11:30 | XMS REPORT | Continuity of Care Document ---
Author Author [facility] Organization [facility] Address Unknown Phone Unavailable Allergies Active Description Code Type Severity Reaction Onset Reported/Identified Relationship to Patient Clinical Status Yes PENICILLIN [id number] CLASS N/A N/A Yes PENICILLINS (CLASS) [id number] CLASS N/A N/A Yes PHENERGAN [id number] BRANDNAME N/ A N/A Yes codeine [id number] Drug Allergy Unknown N/A 12/12/2016 Yes Penicillins [id number] Drug Allergy Unknown N/A 12/12/2016 Yes promethazine [id number] Drug Allergy Unknown N/A 12/12/2016 Yes codeine Drug Allergy Unknown N/A 12/24/2017 Yes penicillin Drug Allergy Unknown N/A 12/24/2017 Yes Phenergan Drug Allergy Unknown N/A 12/24/2017 Yes amoxicillin amoxicillin Drug Allergy Unknown UNKNOWN 03/02/2018 Yes codeine codeine Drug Allergy Unknown UNKNOWN 03/02/2018 Yes Penicillins Penicillins Drug Allergy Unknown UNKNOWN 03/02/2018 Yes promethazine promethazine Drug Allergy Unknown UNKNOWN 03/02/2018 Medications Medication Packaging Start Date Stop Date Route Dosage Sig Tylenol 325 mg capsule Capsule 325 mg take 1 (one) Capsule by Oral route daily HYDROcodone 10 mg-acetaminophen 325 mg tablet Tablet 12/24/2017 10-325 mg take 1 (one) Tablet by Oral route daily gabapentin 300 mg capsule Capsule 12/24/2017 300 mg take 1 (one) Capsule by Oral route daily gabapentin 100 mg capsule Capsule 12/24/2017 100 mg take 1 (one) Capsule by Oral route two times per day aspirin 81 mg tablet,delayed release Tablet 12/24/2017 81 mg take 1 (one) Tablet by Oral route daily lisinopril 10 mg tablet Bag 2017 10 mg take 1 ( one) Tablet by Oral route daily metFORMIN 1,000 mg tablet Tablet 1,000 mg take 1 (one) Tablet by Oral route daily simvastatin 20 mg tablet Blister 20 mg take 1 (one) Tablet by Oral route daily hydrOXYzine HCl 25 mg tablet Tablet 12/24/2017 25 mg take 1 (one) Tablet by Oral route daily Lantus Solostar U-100 Insulin 100 unit/mL (3 mL) subcutaneous pen Milliliter 12/24/2017 100 unit/mL (3 mL) take 10 Unit(s) by Subcutaneous route daily rOPINIRole 1 mg tablet Tablet 12/24 1 mg take 1 ( one) Tablet by Oral route at bedtime amLODIPine 5 mg tablet Blister 5 mg take 1 (one) Tablet by Oral route daily pantoprazole 40 mg tablet,delayed release Blister 12/24/2017 40 mg take 1 (one) Tablet by Oral route daily Problems Date Dx Coded Attending Type Code Diagnosis Diagnosed By 12/12/2016 DOUGLAS GÓMEZ MD, Ot E11.9 TYPE 2 DIABETES MELLITUS WITHOUT COMPLIC 12/12/2016 DOUGLAS GÓMEZ MD Ot F14.10 COCAINE ABUSE, UNCOMPLICATED 12/12/2016 DOUGLAS GÓMEZ MD Ot F17.200 NICOTINE DEPENDENCE, UNSPECIFIED, UNCOMP 12/12/2016 DOUGLAS GÓMEZ MD Ot I10 ESSENTIAL (PRIMARY) HYPERTENSION 12/12/2016 DOUGLAS GÓMEZ MD Ot M25.571 PAIN IN RIGHT ANKLE AND JOINTS OF RIGHT 12/12/2016 DOUGLAS GÓMEZ MD Ot N39.0 URINARY TRACT INFECTION, SITE NOT SPECIF 12/12/2016 DOUGLAS GÓMEZ MD Ot S90.01XA CONTUSION OF RIGHT ANKLE, INITIAL ENCOUN 12/12/2016 DOUGLAS GÓMEZ MD Ot W19.XXXA UNSPECIFIED FALL, INITIAL ENCOUNTER 12/12/2016 DOUGLAS GÓMEZ MD Ot 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 SPECIALIST (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 INSULIN 12/12/2016 DOUGLAS GÓMEZ MD Ot Z79.84 RETIREMENT (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 ORAL HYPOGLYC 12/12/2016 DOUGLAS GÓMEZ MD, Ot Z87.81 PERSONAL HISTORY OF (HEALED) TRAUMATIC F 12/12/2016 DOUGLAS GÓMEZ MD, Ot Z91.81 HISTORY OF FALLING 01/14/2017 ALBARO DYER MD Ot E78.00 PURE HYPERCHOLESTEROLEMIA, UNSPECIFIED 01/14/2017 ALBARO DYER MD Ot F17.210 NICOTINE DEPENDENCE, CIGARETTES, UNCOMPL 01/14/2017 ALBARO DYER MD Ot G25.81 RESTLESS LEGS SYNDROME 01/14/2017 ALBARO DYER MD Ot I10 ESSENTIAL (PRIMARY) HYPERTENSION 01/14/2017 ALBARO DYER MD Ot N39.0 URINARY TRACT INFECTION, SITE NOT SPECIF 01/14/2017 ALBARO DYER MD Ot R03.0 ELEVATED BLOOD-PRESSURE READING, W/O NEETU 01/14/2017 ALBARO DYER MD Ot 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 SPECIALIST (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 INSULIN 01/14/2017 ALBARO DYER MD Ot Z79.82 RETIREMENT (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 ASPIRIN 01/14/2017 ALBARO DYER MD Ot Z79.84 CUSTOMER ENERGY SPECIALIST (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 ORAL HYPOGLYC 01/14/2017 ALBARO DYER MD Ot Z87.828 PERSONAL HISTORY OF OTH (HEALED) PHYSICA 01/14/2017 ALBARO DYER MD Ot Z90.710 ACQUIRED ABSENCE OF BOTH CERVIX AND UTER 01/14/2017 ALBARO DYER MD Ot Z98.51 TUBAL LIGATION STATUS 01/14/2017 ALBARO DYER MD Ot Z98.890 OTHER SPECIFIED POSTPROCEDURAL STATES 01/16/2017 ALBARO DYER MD Ot E78.00 PURE HYPERCHOLESTEROLEMIA, UNSPECIFIED 01/16/2017 ALBARO DYER MD Ot F17.210 NICOTINE DEPENDENCE, CIGARETTES, UNCOMPL 01/16/2017 ALBARO DYER MD Ot G25.81 RESTLESS LEGS SYNDROME 01/16/2017 ALBARO DYER MD Ot I10 ESSENTIAL (PRIMARY) HYPERTENSION 01/16/2017 ALBARO DYER MD Ot N39.0 URINARY TRACT INFECTION, SITE NOT SPECIF 01/16/2017 ALBARO DYER MD Ot R03.0 ELEVATED BLOOD-PRESSURE READING, W/O NEETU 01/16/2017 ALBARO DYER MD Ot Z79.82 CUSTOMER ENERGY SPECIALIST (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 ASPIRIN 01/16/2017 ALBARO DYER MD Ot Z79.84 RETIREMENT (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 ORAL HYPOGLYC 01/16/2017 ALBARO DYER MD Ot Z87.828 PERSONAL HISTORY OF OTH (HEALED) PHYSICA 01/16/2017 ALBARO DYER MD Ot Z90.710 ACQUIRED ABSENCE OF BOTH CERVIX AND UTER 01/16/2017 ALBARO DYER MD Ot Z98.51 TUBAL LIGATION STATUS 01/16/2017 ALBARO DYER MD Ot Z98.890 OTHER SPECIFIED POSTPROCEDURAL STATES 01/16/2017 DOUGLAS GÓMEZ MD Ot E11.9 TYPE 2 DIABETES MELLITUS WITHOUT COMPLIC 01/16/2017 DOUGLAS GÓMEZ MD Ot F14.10 COCAINE ABUSE, UNCOMPLICATED 01/16/2017 DOUGLAS GÓMEZ MD Ot F17.200 NICOTINE DEPENDENCE, UNSPECIFIED, UNCOMP 01/16/2017 DOUGLAS GÓMEZ MD Ot I10 ESSENTIAL (PRIMARY) HYPERTENSION 01/16/2017 DOUGLAS GÓMEZ MD Ot M25.571 PAIN IN RIGHT ANKLE AND JOINTS OF RIGHT 01/16/2017 DOUGLAS GÓMEZ MD Ot N39.0 URINARY TRACT INFECTION, SITE NOT SPECIF 01/16/2017 DOUGLAS GÓMEZ MD Ot S90.01XA CONTUSION OF RIGHT ANKLE, INITIAL ENCOUN 01/16/2017 DOUGLAS GÓMEZ MD Ot W19.XXXA UNSPECIFIED FALL, INITIAL ENCOUNTER 01/16/2017 DOUGLAS GÓMEZ MD Ot 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 SPECIALIST (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 INSULIN 01/16/2017 DOUGLAS GÓMEZ MD Ot Z79.84 RETIREMENT (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 ORAL HYPOGLYC 01/16/2017 DOUGLAS GÓMEZ MD Ot Z87.81 PERSONAL HISTORY OF (HEALED) TRAUMATIC F 01/16/2017 DOUGLAS GÓMEZ MD Ot Z91.81 HISTORY OF FALLING 06/08/2017 P I639 Cerebral infarction, unspecified 06/08/2017 S [id number] Unspecified symptoms and signs involving cognitive functions following unspecified cerebrovascular disease 06/08/2017 S R2689 Other abnormalities of gait and mobility 06/08/2017 S R531 Weakness 06/09/2017 P I639 Cerebral infarction, unspecified 06/09/2017 S [id number] Unspecified symptoms and signs involving cognitive functions following unspecified cerebrovascular disease 06/09/2017 S R2689 Other abnormalities of gait and mobility 06/09/2017 S R531 Weakness 07/21/2017 S D638 Anemia in other chronic diseases classified elsewhere 07/21/2017 P 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 07/21/2017 S E1140 Type 2 diabetes mellitus with diabetic neuropathy, unspecified 07/21/2017 S E785 Hyperlipidemia , unspecified 07/21/2017 S E860 Dehydration 07/21/2017 S F419 Anxiety disorder, unspecified 07/21/2017 S I10 Essential ( primary) hypertension 07/21/2017 S K219 Gastro- esophageal reflux disease without esophagitis 07/21/2017 S 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, medicaments and biological substances 07/21/2017 S N179 Acute kidney failure, unspecified 07/21/2017 S [id number] Adverse effect of insulin and oral hypoglycemic [antidiabetic] drugs, initial encounter 07/21/2017 S Z590 Homelessness 07/21/2017 S Z7982 vermin exterminator ( current) use of aspirin 07/21/2017 S Z7984 assisted ( current) use of oral hypoglycemic drugs 07/21/2017 S [id number] Other prison (current) drug therapy 07/21/2017 S Z8673 Personal history of transient ischemic attack (TIA), and cerebral infarction without residual deficits 07/21/2017 S Z880 Allergy status to penicillin 07/27/2017 S D649 Anemia, unspecified 07/27/2017 P [id number] Type 2 diabetes mellitus with hypoglycemia without coma 07/27/2017 S N179 Acute kidney failure, unspecified 07/27/2017 S Z7984 vermin exterminator ( current) use of oral hypoglycemic drugs 09/22/2017 S E1140 Type 2 diabetes mellitus with diabetic neuropathy, unspecified 09/22/2017 P [id number] Type 2 diabetes mellitus with foot ulcer 09/22/2017 S [id number] Non-pressure chronic ulcer of other part of right foot limited to breakdown of skin 09/22/2017 S Z720 Tobacco use 09/22/2017 S Z7984 vermin exterminator ( current) use of oral hypoglycemic drugs 10/11/2017 P G4733 Obstructive sleep apnea (adult) (pediatric) 10/11/2017 S I10 Essential ( primary) hypertension 10/16/2017 S E1142 Type 2 diabetes mellitus with diabetic polyneuropathy 10/16/2017 P H83655 Type 2 diabetes mellitus with foot ulcer 10/16/2017 S E1165 Type 2 diabetes mellitus with hyperglycemia 10/16/2017 S S11781 Nicotine dependence, cigarettes, with other nicotine-induced disorders 10/16/2017 S B28753 Atherosclerosis of [place] arteries of extremities with intermittent claudication , right leg 10/16/2017 S O41976 Non-pressure chronic ulcer of other part of right foot limited to breakdown of skin 01/01/2018 DIANDRASANAM HURTADOGARD I E11.22 Type 2 diabetes mellitus with diabetic chronic kidney disease DIANDRASANAM HURTADOGARD I 01/01/2018 DIANDRA TERRY I I12.9 Hypertensive chronic kidney disease with stage 1 through stage 4 chronic kidney disease, or unspecified chronic kidney disease DIANDRASANAMTERRY I 01/01/2018 DIANDRA TERRY I N18.4 Chronic kidney disease, stage 4 (severe) DIANDRASANAM HURTADOGARD I 02/03/2018 S G5793 Unspecified mononeuropathy of bilateral lower limbs 02/03/2018 S C04574 Unspecified symptoms and signs involving cognitive functions following cerebral infarction 02/03/2018 P O75016 Hemiplegia and hemiparesis following cerebral infarction affecting right dominant side 02/25/2018 P L44359 Atherosclerosis of [place] arteries of extremities with intermittent claudication , left leg 03/10/2018 DIANDRASANAM HURTADOGARD I D63.1 Anemia in chronic kidney disease DIANDRASANAM HURTADOGARD I 03/10/2018 DIANDRASANAMTERRY I E11.22 Type 2 diabetes mellitus with diabetic chronic kidney disease DIANDRA SANAMTERRY I 03/10/2018 DIANDRA TERRY I E11.29 Type 2 diabetes mellitus with other diabetic kidney complication DIANDRASANAMTERRY I 03/10/2018 DIANDRA TERRY I E83.39 Other disorders of phosphorus metabolism DIANDRA TERRY I 03/10/2018 DIANDRA TERRY I E87.2 Acidosis DIANDRA TERRY I 03/10/2018 DIANDRA TERRY I I12.9 Hypertensive chronic kidney disease with stage 1 through stage 4 chronic kidney disease, or unspecified chronic kidney disease DIANDRA TERRY I 03/10/2018 DIANDRA TERRY I N18.4 Chronic kidney disease, stage 4 (severe) DIANDRA TERRY I 03/10/2018 DIANDRA TERRY I N25.81 Secondary hyperparathyroidism of renal origin DIANDRATERRY HURTADO I 03/16/2018 S G5793 Unspecified mononeuropathy of bilateral lower limbs 03/16/2018 S E77734 Unspecified symptoms and signs involving cognitive functions following cerebral infarction 03/16/2018 P P59653 Hemiplegia and hemiparesis following cerebral infarction affecting right dominant side 04/28/2018 S I10 Essential ( primary) hypertension 04/28/2018 P P37383 Atherosclerosis of [place] arteries of right leg with ulceration of other part of foot Procedures Code [place] [address] Office or other outpatient visit for the evaluation and management of a new patient, which requires TERRY JIM I 01/01/2018 71041 Office or other outpatient visit for the evaluation and management of an established patient, which TERRY JIM I 03/10/2018 72431 Office or other outpatient visit for the evaluation and management of an established patient, which TERRY JIM I 03/23/2018 Results Test Result Range Automated blood complete blood count (hemogram) panel - 12/12/16 21:51 Blood leukocytes automated count (number/volume) 6.5 10*3/uL 4.3-11.0 Blood erythrocytes automated count (number/volume) 3.15 10*6/uL 4.35-5.85 Venous blood hemoglobin measurement (mass/volume) 9.9 g/dL 11.5-16.0 Blood hematocrit (volume fraction) 29 % 35-52 Automated erythrocyte mean corpuscular volume 91 [foz_us] 80-99 Automated erythrocyte mean corpuscular hemoglobin (mass per erythrocyte) 31 pg 25-34 Automated erythrocyte mean corpuscular hemoglobin concentration measurement ( mass/volume) 34 g/dL 32-36 Automated erythrocyte distribution width ratio 12.4 % 10.0-14.5 Automated blood platelet count (count/volume) 291 10*3/uL 130-400 Automated blood platelet mean volume measurement 10.8 [foz_us] 7.4-10.4 Whole blood basic metabolic panel - 12/12/16 21:51 Serum or plasma sodium measurement (moles/volume) 139 mmol/L 135-145 Serum or plasma potassium measurement (moles/volume) 4.1 mmol/L 3.6-5.0 Serum or plasma chloride measurement (moles/volume) 106 mmol/L 98-107 Carbon dioxide 24 mmol/L 21-32 Serum or plasma anion gap determination (moles/volume) 9 mmol/L 5-14 Serum or plasma urea nitrogen measurement (mass/volume) 25 mg/dL 7-18 Serum or plasma creatinine measurement (mass/volume) 1.30 mg/dL 0.60-1.30 Serum or plasma urea nitrogen/creatinine mass ratio 19 NRG Serum or plasma creatinine measurement with calculation of estimated glomerular filtration rate 52 NRG Serum or plasma glucose measurement (mass/volume) 322 mg/dL 70-105 Serum or plasma calcium measurement (mass/volume) 9.1 mg/dL 8.5-10.1 Complete urinalysis with reflex to culture - 12/12/16 22:25 Urine color determination YELLOW NRG Urine clarity determination SLIGHTLY CLOUDY NRG Urine pH measurement by test strip 6 5-9 Specific gravity of urine by test strip 1.015 1.016- 1.022 Urine protein assay by test strip, semi-quantitative 4+ NEGATIVE Urine glucose detection by automated test strip 4+ NEGATIVE Erythrocytes detection in urine sediment by light microscopy 2+ NEGATIVE Urine ketones detection by automated test strip NEGATIVE NEGATIVE Urine nitrite detection by test strip POSITIVE NEGATIVE Urine total bilirubin detection by test strip NEGATIVE NEGATIVE Urine urobilinogen measurement by automated test strip (mass/volume) NORMAL NORMAL Urine leukocyte esterase detection by dipstick 1+ NEGATIVE Automated urine sediment erythrocyte count by microscopy (number/high power field) [HPF] NRG Automated urine sediment leukocyte count by microscopy (number/high power field ) [HPF] NRG Bacteria detection in urine sediment by light microscopy LARGE NRG Squamous epithelial cells detection in urine sediment by light microscopy 2-5 NRG Crystals detection in urine sediment by light microscopy NONE NRG Casts detection in urine sediment by light microscopy NONE NRG Mucus detection in urine sediment by light microscopy NEGATIVE NRG Complete urinalysis with reflex to culture YES NRG Bacterial urine culture - 12/12/16 22:25 Bacterial urine culture [id number] NRG COLONY COUNT >100,000/ML NRG FTX;REPORTABLE SENSITIVITY REPORTED 12/14/16 9:30 NRG FREE TEXT ENTRY 2 PLUS, NRG FREE TEXT ENTRY 3 MIXED GRAM POSITIVES <10,000/ML NRG Bacterial susceptibility panel - 12/12/16 22:25 Gentamicin susceptibility test by minimum inhibitory concentration < = NRG Trimethoprim/sulfamethoxazole susceptibility test by minimum inhibitoryconcentration >= NRG Ampicillin susceptibility test by minimum inhibitory concentration > = NRG Tobramycin susceptibility test by minimum inhibitory concentration < = NRG Cefazolin susceptibility test by minimum inhibitory concentration < = NRG Ceftriaxone susceptibility test by minimum inhibitory concentration <= NRG Ampicillin/sulbactam susceptibility test by minimum inhibitory concentration 4 NRG Piperacillin/tazobactam susceptibility test by minimum inhibitory concentration <= NRG Ciprofloxacin susceptibility test by minimum inhibitory concentration <= NRG Meropenem susceptibility test by minimum inhibitory concentration < = NRG Nitrofurantoin susceptibility test by minimum inhibitory concentration 32 NRG Aztreonam susceptibility test by minimum inhibitory concentration < = NRG Extended spectrum beta lactamase (ESBL) producing bacteria susceptibility test by minimum inhibitory concentration - NRG Microalb/Creat Ratio, [facility] Ur - 12/25/16 17:23 Creatinine, Urine 44.5 mg/dL Not Estab. Microalbumin, Urine 1695.5 ug/mL Not Estab. Microalb/Creat Ratio 3810.1 mg/g creat 0.0-30.0 Basic Metabolic Panel (8) - 12/25/16 17:23 Glucose, Serum 227 mg/dL 65-99 BUN 21 mg/dL 6-24 Creatinine, Serum 1.17 mg/dL 0.57-1.00 eGFR If NonAfricn Am 54 mL/min/1.73 >59 eGFR If Africn Am 62 mL/min/1.73 >59 BUN/Creatinine Ratio 18 9-23 Sodium, Serum 141 mmol/L 134-144 Potassium, Serum 4.6 mmol/L 3.5-5.2 Chloride, Serum 104 mmol/L 96-106 Carbon Dioxide, Total 21 mmol/L 18-29 Calcium, Serum 9.2 mg/dL 8.7-10.2 Comp. Metabolic Panel (14) - 01/08/17 08:23 Glucose, Serum 85 mg/dL 65-99 BUN 22 mg/dL 6-24 Creatinine, Serum 1.01 mg/dL 0.57-1.00 eGFR If NonAfricn Am 64 mL/min/1.73 >59 eGFR If Africn Am 74 mL/min/1.73 >59 BUN/Creatinine Ratio 22 9-23 Sodium, Serum 143 mmol/L 134-144 Potassium, Serum 4.9 mmol/L 3.5-5.2 Chloride, Serum 106 mmol/L 96-106 Carbon Dioxide, Total 20 mmol/L 18-29 Calcium, Serum 9.3 mg/dL 8.7-10.2 Protein, Total, Serum 6.8 g/dL 6.0-8.5 Albumin, Serum 3.9 g/dL 3.5-5.5 Globulin, Total 2.9 g/dL 1.5-4.5 A/G Ratio 1.3 1.2-2.2 Bilirubin, Total 0.4 mg/dL 0.0-1.2 Alkaline Phosphatase, S 81 IU/L 39-117 AST (SGOT) 19 IU/L 0-40 ALT (SGPT) 20 IU/L 0-32 C-Peptide, Serum - 01/08/17 08:23 C-Peptide, Serum 0.8 ng/mL 1.1-4.4 Complete blood count (CBC) with automated white blood cell (WBC) differential - 01/14/17 16:25 Blood leukocytes automated count (number/volume) 6.3 10*3/uL 4.3-11.0 Blood erythrocytes automated count (number/volume) 3.24 10*6/uL 4.35-5.85 Venous blood hemoglobin measurement (mass/volume) 10.2 g/dL 11.5-16.0 Blood hematocrit (volume fraction) 30 % 35-52 Automated erythrocyte mean corpuscular volume 92 [foz_us] 80-99 Automated erythrocyte mean corpuscular hemoglobin (mass per erythrocyte) 32 pg 25-34 Automated erythrocyte mean corpuscular hemoglobin concentration measurement ( mass/volume) 34 g/dL 32-36 Automated erythrocyte distribution width ratio 11.9 % 10.0-14.5 Automated blood platelet count (count/volume) 319 10*3/uL 130-400 Automated blood platelet mean volume measurement 10.5 [foz_us] 7.4-10.4 Automated blood neutrophils/100 leukocytes 55 % 42-75 Automated blood lymphocytes/100 leukocytes 35 % 12-44 Blood monocytes/100 leukocytes 7 % 0-12 Automated blood eosinophils/100 leukocytes 2 % 0-10 Automated blood basophils/100 leukocytes 1 % 0-10 Blood neutrophils automated count (number/volume) 3.5 10*3 1.8-7.8 Blood lymphocytes automated count (number/volume) 2.2 10*3 1.0-4.0 Blood monocytes automated count (number/volume) 0.4 10*3 0.0-1.0 Automated eosinophil count 0.1 10*3/uL 0.0-0.3 Automated blood basophil count (count/volume) 0.0 10*3/uL 0.0-0.1 Comprehensive metabolic panel - 01/14/17 16:25 Serum or plasma sodium measurement (moles/volume) 141 mmol/L 135-145 Serum or plasma potassium measurement (moles/volume) 4.5 mmol/L 3.6-5.0 Serum or plasma chloride measurement (moles/volume) 111 mmol/L 98-107 Carbon dioxide 20 mmol/L 21-32 Serum or plasma anion gap determination (moles/volume) 10 mmol/L 5-14 Serum or plasma urea nitrogen measurement (mass/volume) 31 mg/dL 7-18 Serum or plasma creatinine measurement (mass/volume) 1.11 mg/dL 0.60-1.30 Serum or plasma urea nitrogen/creatinine mass ratio 28 NRG Serum or plasma creatinine measurement with calculation of estimated glomerular filtration rate > NRG Serum or plasma glucose measurement (mass/volume) 129 mg/dL 70-105 Serum or plasma calcium measurement (mass/volume) 8.7 mg/dL 8.5-10.1 Serum or plasma total bilirubin measurement (mass/volume) 0.3 mg/dL 0.1-1.0 Serum or plasma alkaline phosphatase measurement (enzymatic activity/volume) 70 U/L 40-136 Serum or plasma aspartate aminotransferase measurement (enzymatic activity/ volume) 19 U/L 5-34 Serum or plasma alanine aminotransferase measurement (enzymatic activity/volume ) 18 U/L 0-55 Serum or plasma protein measurement (mass/volume) 6.3 g/dL 6.4-8.2 Serum or plasma albumin measurement (mass/volume) 3.6 g/dL 3.2-4.5 Serum or plasma troponin i.cardiac measurement (mass/volume) - 01/14/17 16:25 Serum or plasma troponin i.cardiac measurement (mass/volume) < ng/ mL <0.30 Capillary blood glucose measurement by glucometer (mass/volume) - 01/14/17 16: 28 Capillary blood glucose measurement by glucometer (mass/volume) 136 mg/dL 70-110 Complete urinalysis with reflex to culture - 01/14/17 17:17 Urine color determination YELLOW NRG Urine clarity determination SLIGHTLY CLOUDY NRG Urine pH measurement by test strip 5 5-9 Specific gravity of urine by test strip 1.020 1.016- 1.022 Urine protein assay by test strip, semi-quantitative 4+ NEGATIVE Urine glucose detection by automated test strip NEGATIVE NEGATIVE Erythrocytes detection in urine sediment by light microscopy 2+ NEGATIVE Urine ketones detection by automated test strip NEGATIVE NEGATIVE Urine nitrite detection by test strip NEGATIVE NEGATIVE Urine total bilirubin detection by test strip NEGATIVE NEGATIVE Urine urobilinogen measurement by automated test strip (mass/volume) NORMAL NORMAL Urine leukocyte esterase detection by dipstick 1+ NEGATIVE Automated urine sediment erythrocyte count by microscopy (number/high power field) NONE NRG Automated urine sediment leukocyte count by microscopy (number/high power field ) [HPF] NRG Bacteria detection in urine sediment by light microscopy LARGE NRG Squamous epithelial cells detection in urine sediment by light microscopy 2-5 NRG Crystals detection in urine sediment by light microscopy NONE NRG Casts detection in urine sediment by light microscopy NONE NRG Mucus detection in urine sediment by light microscopy NEGATIVE NRG Complete urinalysis with reflex to culture YES NRG Urine drug screening test - 01/14/17 17:17 Urine phencyclidine detection by screening method NEGATIVE NEGATIVE Urine benzodiazepines detection by screening method NEGATIVE NEGATIVE Urine cocaine detection NEGATIVE NEGATIVE Urine amphetamines detection by screening method NEGATIVE NEGATIVE Urine methamphetamine detection by screening method NEGATIVE NEGATIVE Urine cannabinoids detection by screening method NEGATIVE NEGATIVE Urine opiates detection by screening method NEGATIVE NEGATIVE Urine barbiturates detection NEGATIVE NEGATIVE Screening urine tricyclic antidepressants detection NEGATIVE NEGATIVE Urine methadone detection by screening method NEGATIVE NEGATIVE Urine oxycodone detection NEGATIVE NEGATIVE Urine propoxyphene detection NEGATIVE NEGATIVE Bacterial urine culture - 01/14/17 17:17 Bacterial urine culture [id number] NRG COLONY COUNT >100,000/ML NRG FTX;REPORTABLE SENSITIVITY REPORTED 01/15/17 16:50 NRG FREE TEXT ENTRY 2 PLUS, NRG FREE TEXT ENTRY 3 MIXED GRAM POSITIVES <10,000/ML NRG Bacterial susceptibility panel - 01/14/17 17:17 Gentamicin susceptibility test by minimum inhibitory concentration < = NRG Trimethoprim/sulfamethoxazole susceptibility test by minimum inhibitoryconcentration >= NRG Ampicillin susceptibility test by minimum inhibitory concentration > = NRG Tobramycin susceptibility test by minimum inhibitory concentration < = NRG Cefazolin susceptibility test by minimum inhibitory concentration < = NRG Ceftriaxone susceptibility test by minimum inhibitory concentration <= NRG Ampicillin/sulbactam susceptibility test by minimum inhibitory concentration 16 NRG Piperacillin/tazobactam susceptibility test by minimum inhibitory concentration 8 NRG Ciprofloxacin susceptibility test by minimum inhibitory concentration 0.5 NRG Meropenem susceptibility test by minimum inhibitory concentration < = NRG Nitrofurantoin susceptibility test by minimum inhibitory concentration 256 NRG Aztreonam susceptibility test by minimum inhibitory concentration < = NRG Extended spectrum beta lactamase (ESBL) producing bacteria susceptibility test by minimum inhibitory concentration - NRG HP4+HBsAb - 05/09/17 06:40 Hep B Surface Ab, Qual Non Reactive HBsAg Screen Negative Negative Hep A Ab, IgM Negative Negative Hep B Core Ab, IgM Negative Negative HCV Ab <0.1 s/co ratio 0.0-0.9 Comment: - 05/09/17 06:40 Comment: Comment CULTURE, URINE - 05/28/17 17:58 CULTURE, URINE, ROUTINE SEE NOTE NRG CBC - 07/31/17 15:40 WHITE BLOOD CELL COUNT 7.3 Thousand/uL 3.8-10.8 RED BLOOD CELL COUNT 2.92 Million/uL 3.80-5.10 HEMOGLOBIN 8.8 g/dL 11.7-15.5 HEMATOCRIT 26.2 % 35.0-45.0 MCV 89.7 fL 80.0-100.0 MCH 30.1 pg 27.0-33.0 MCHC 33.6 g/dL 32.0-36.0 RDW 12.0 % 11.0-15.0 PLATELET COUNT 414 Thousand/uL 140-400 MPV 11.3 fL 7.5-12.5 ABSOLUTE NEUTROPHILS 4862 cells/uL 1692-5578 ABSOLUTE LYMPHOCYTES 1730 cells/uL 850-3900 ABSOLUTE MONOCYTES 489 cells/uL 200-950 ABSOLUTE EOSINOPHILS 190 cells/uL 15-500 ABSOLUTE BASOPHILS 29 cells/uL 0-200 NEUTROPHILS 66.6 % NRG LYMPHOCYTES 23.7 % NRG MONOCYTES 6.7 % NRG EOSINOPHILS 2.6 % NRG BASOPHILS 0.4 % NRG GLUCOSE (POC) - 03/02/18 08:31 GLUCOSE (POC) 78 mg/dL 70-99 HEMOGLOBIN - 03/02/18 08:32 MEAN CELL VOLUME 91.3 fl 80.0-100.0 HEMOGLOBIN 8.3 gm/dL 12.0-16.0 GLUCOSE (POC) - 03/02/18 09:31 GLUCOSE (POC) 222 mg/dL 70-99 GLUCOSE (POC) - 03/02/18 10:19 GLUCOSE (POC) 135 mg/dL 70-99 CBC - 03/17/18 16:00 MEAN CELL HGB 29.9 pg 27.0-33.0 MEAN CELL HGB CONCENTRATION 32.8 g/dL 32.0-37.0 MEAN CELL VOLUME 91.3 fl 80.0-100.0 MEAN PLATELET VOLUME 10.6 fl 8.5-10.9 RED BLOOD CELL 2.64 m/cumm 4.00-6.00 RED CELL DISTRIBUTION WIDTH 12.2 % 11.0-15.6 WHITE BLOOD CELL 6.9 k/cumm 5.0-10.0 HEMOGLOBIN 7.9 gm/dL 12.0-16.0 HEMATOCRIT 24.1 % 37.0-47.0 NRBC % 0.0 /100 WBC 0.0-0.0 PLATELET COUNT 299 k/cumm 150-400 METABOLIC PANEL, BASIC - 03/17/18 16:00 POTASSIUM 4.1 mmol/L 3.5-5.3 EST GFR (MDRD) 24 mL/min > 59 ANION GAP 7 mmol/L 5-15 EST CrCl (CG) 22 mL/min > 59 GLUCOSE 130 mg/dL 70-99 CALCIUM 8.7 mg/dL 8.5-10.1 BLOOD UREA NITROGEN 43 mg/dL 7-20 CREATININE 2.5 mg/dL 0.6-1.0 SODIUM 137 mmol/L 135-148 CHLORIDE 106 mmol/L 98-110 CARBON DIOXIDE 24 mmol/L 21-32 TROPONIN I BEDSIDE - 03/17/18 16:05 METHOD Bedside TROPONIN I < 0.04 ng/mL < 0.11 Capillary blood glucose measurement by glucometer (mass/volume) - 05/13/18 09: 56 Capillary blood glucose measurement by glucometer (mass/volume) 109 mg/dL 70-110 Encounters ACCT No. Visit Date/Time Discharge Status Pt. Type Provider Facility Loc./Unit Complaint [id number] 03/19/2018 11:13:27 03/19/2018 23:59:59 CLS Outpatient Ronnie Tom [id number] 01/01/2018 15:05:28 01/01/2018 23:59:59 CLS Outpatient Ronnie Tom [id number] 12/01/2017 10:09:14 12/01/2017 23:59:59 CLS Outpatient Negro Ronnie [id number] 11/20/2017 16:52:56 11/20/2017 23:59:59 CLS Outpatient Collins Mcclelland [id number] 10/09/2017 17:03:54 10/09/2017 23:59:59 CLS Outpatient Collins Mcclelland Dano [id number] 08/20/2017 15:18:16 08/20/2017 23:59:59 CLS Outpatient Kash Albarran [id number] 08/07/2017 11:26:55 08/07/2017 23:59:59 CLS Outpatient Collins Mcclelland Dano [id number] 07/24/2017 13:47:49 07/24/2017 23:59:59 CLS Outpatient Amari Lazo [id number] 07/17/2017 15:19:24 07/17/2017 23:59:59 CLS Outpatient Collins Mcclelland Dano [id number] 07/16/2017 11:56:11 07/16/2017 23:59:59 CLS Outpatient Kayleigh, Zara S [id number] 06/12/2017 10:10:29 06/12/2017 23:59:59 CLS Outpatient Kayleigh, V S [id number] 06/05/2017 14:35:39 06/05/2017 23:59:59 CLS Outpatient Collins Mcclelland [id number] 05/20/2017 10:14:56 05/20/2017 23:59:59 CLS Outpatient Lalito Corado [id number] 02/24/2016 13:04:10 02/24/2016 23:59:59 CLS Outpatient Aleisha Childs [id number] 09/15/2014 11:06:23 09/15/2014 23:59:59 CLS Outpatient Ronnie Tom [id number] 07/06/2014 09:49:06 07/06/2014 23:59:59 CLS Outpatient Ronnie Tom [id number] 02/10/2014 09:58:55 02/10/2014 23:59:59 CLS Outpatient Ronnie Tom [id number] 12/28/2013 10:36:41 12/28/2013 23:59:59 CLS Outpatient Ronnie Tom [id number] 11/03/2013 10:56:17 11/03/2013 23:59:59 CLS Outpatient Ronnie Tom [id number] 08/27/2013 10:52:02 08/27/2013 23:59:59 CLS Outpatient Ronnie Tom [id number] 08/19/2013 12:27:19 08/19/2013 23:59:59 CLS Outpatient Kya Tay [id number] 07/29/2013 15:31:24 07/29/2013 23:59:59 CLS Outpatient Ronnie Tom [id number] 07/12/2013 16:35:19 07/12/2013 23:59:59 CLS Outpatient Ronnie Tom [id number] 07/05/2013 10:11:02 07/05/2013 23:59:59 CLS Outpatient Regi Foster [id number] 07/05/2013 10:10:41 07/05/2013 23:59:59 CLS Outpatient Ronnie Tom [id number] 07/05/2013 10:10:01 07/05/2013 23:59:59 CLS Outpatient Kya Tay [id number] 07/05/2013 10:09:20 07/05/2013 23:59:59 CLS Outpatient Ronnie Tom [id number] 05/10/2017 11:05:00 Document Registration [id number] 01/14/2017 16:10:00 01/14/2017 18:05:00 DIS Emergency ALBARO DYER MD Via [facility] ER DIZZY, HIGH BP, LOW SUGAR [id number] 12/12/2016 20:56:00 12/12/2016 23:31:00 DIS Emergency DOUGLAS GÓMEZ MD Via [facility] ER RT ANKLE PAIN [id number] 05/13/2018 10:03:00 Document Registration [id number] 12/26/2016 11:07:00 Document Registration [id number] 03/17/2018 15:20:00 03/17/2018 20:59:00 DIS Emergency Arlet VYAS, Lj Guallpa [facility] W.EDS [id number] 03/02/2018 07:12:00 03/02/2018 11:21:00 DIS Outpatient Dev VYAS, Toby Neely [facility] W.OPRA [id number] 11/14/2017 14:00:00 11/14/2017 23:59:59 CHRIS Vaughn [id number] 07/31/2017 15:00:00 Document Registration [id number] 05/28/2017 15:20:00 Document Registration [id number] 12/26/2016 08:07:00 Document Registration [id number] 01/09/2017 15:08:00 Document Registration [id number] 03/09/2018 11:28:09 Document Registration [id number] 03/04/2018 15:18:32 Document Registration [id number] 02/25/2018 10:18:22 Document Registration [id number] 01/30/2018 14:13:50 Document Registration [id number] 01/05/2018 09:27:58 Document Registration [id number] 01/01/2018 14:59:12 Document Registration [id number] 12/02/2017 13:56:08 Document Registration [id number] 12/02/2017 10:28:01 Document Registration [id number] 11/25/2017 11:04:48 Document Registration [id number] 11/24/2017 10:53:56 Document Registration [id number] 11/18/2017 13:37:57 Document Registration [id number] 11/17/2017 11:19:04 Document Registration [id number] 11/17/2017 11:15:10 Document Registration [id number] 11/11/2017 15:01:23 Document Registration [id number] 11/11/2017 14:59:35 Document Registration [id number] 11/11/2017 13:12:35 Document Registration [id number] 11/05/2017 10:05:25 Document Registration [id number] 10/29/2017 08:52:37 Document Registration [id number] 10/27/2017 08:23:07 Document Registration [id number] 10/22/2017 18:43:22 Document Registration [id number] 10/22/2017 13:25:12 Document Registration [id number] 10/15/2017 08:08:11 Document Registration [id number] 10/01/2017 08:37:42 Document Registration [id number] 09/25/2017 10:28:09 Document Registration [id number] 09/24/2017 10:12:51 Document Registration [id number] 09/23/2017 08:15:21 Document Registration [id number] 09/22/2017 01:04:13 Document Registration [id number] 09/22/2017 00:58:53 Document Registration [id number] 09/12/2017 11:38:10 Document Registration [id number] 09/12/2017 11:35:20 Document Registration [id number] 09/08/2017 10:12:14 Document Registration [id number] 09/07/2017 20:26:41 Document Registration [id number] 09/07/2017 20:19:09 Document Registration [id number] 09/01/2017 09:01:29 Document Registration [id number] 08/26/2017 08:21:45 Document Registration [id number] 08/19/2017 09:19:52 Document Registration [id number] 08/07/2017 09:36:22 Document Registration [id number] 08/01/2017 10:21:57 Document Registration [id number] 08/01/2017 09:24:40 Document Registration [id number] 07/19/2017 18:31:04 Document Registration [id number] 07/19/2017 18:14:36 Document Registration [id number] 06/26/2017 09:54:51 Document Registration [id number] 06/12/2017 15:52:19 Document Registration [id number] 06/09/2017 11:52:50 Document Registration [id number] 06/07/2017 09:28:20 Document Registration [id number] 06/07/2017 08:48:05 Document Registration [id number] 06/05/2017 00:57:16 Document Registration [id number] 06/04/2017 18:43:25 Document Registration [id number] 05/30/2017 13:16:30 Document Registration [id number] 05/20/2017 14:45:44 Document Registration [id number] 05/20/2017 13:41:51 Document Registration [id number] 05/13/2017 14:17:44 Document Registration [id number] 05/08/2017 18:15:20 Document Registration [id number] 05/08/2017 17:31:53 Document Registration [id number] 05/07/2017 19:11:12 Document Registration [id number] 05/07/2017 18:57:29 Document Registration [id number] 03/10/2018 16:45:05 03/10/2018 23:59:59 [facility] TERRY Zhao I
--- NOTE | 2018-05-13 13:33 | Anesthesia-General Post-Op ---
MAC Patient Condition Mental Status/LOC: Same as Preop Cardiovascular: Satisfactory Nausea/Vomiting: Absent Respiratory: Satisfactory Pain: Controlled Complications: Absent Post Op Complications Complications None Follow Up Care/Instructions Patient Instructions None needed. Anesthesiology Discharge Order Discharge Order Patient is doing well, no complaints, stable vital signs, no apparent adverse anesthesia problems. BRAULIO KEANE DO May 13, 2018 13:33
== END 2018-05-13 11:05 | disposition home or self-care (01) ==
LOC: SDC 09:23
PROVIDERS: ATTEND Specialist
DX: H25.11 Age-related nuclear cataract, right eye (principal); E11.36 Type 2 diabetes mellitus with diabetic cataract; E11.43 Type 2 diabetes mellitus with diabetic autonomic (poly)neuropathy; I10 Essential (primary) hypertension; N28.9 Disorder of kidney and ureter, unspecified; K21.9 Gastro-esophageal reflux disease without esophagitis; I69.351 Hemiplegia and hemiparesis following cerebral infarction affecting right dominant side; I69.311 Memory deficit following cerebral infarction; F17.200 Nicotine dependence, unspecified, uncomplicated; Z79.02 Long term (current) use of antithrombotics/antiplatelets; Z79.82 Long term (current) use of aspirin; Z79.4 Long term (current) use of insulin; Z79.899 Other long term (current) drug therapy
CPT/HCPCS: 82962

== ENCOUNTER 2018-05-21 09:15 | Outpatient (CLI) | payer MEDICAID | END 2018-05-21 09:26 | disposition home or self-care (01) | LOC: PREOP 09:15 | PROVIDERS: ATTEND Specialist | DX: Z01.818 Encounter for other preprocedural examination (principal) ==

== ENCOUNTER 2018-05-22 09:06 | Day surgery (SDC) | payer MEDICAID ==
[~2018-05-22] VITALS: Ht 160 cm; Wt 55.3 kg
--- OUTSIDE RECORDS SUMMARY | 2018-05-22 09:11 | XMS REPORT ---
Author Author Ronnie Tom [facility] Address [address] [place], [place] [id number] Care Team Providers Care Ear Flap Binder Name Role Phone Ronnie Tom PCP Ronnie Tom PreferredProvider Allergies and Adverse Reactions Name Reaction Notes Phenergan PENICILLINS codeine sulfate Plan of Treatment Planned Activity Comments Planned Date Planned Time Plan/Goal HEPATIC FUNCTION PANEL 05/18/2018 12:00 AM Medications Active Name Start Date Estimated Completion Date SIG Comments famciclovir 500 mg oral tablet 09/24/2013 TAKE [...] units by subcutaneous route once a day Bydureon BCise 2 mg/0.85 mL subcutaneous auto-injector 12/24/2017 inject 2 mg by subcutaneous route every 7 days in the abdomen, thighs, or outer area of upper arm rotating injection sites triamcinolone acetonide 0.1 % topical cream 01/15/2018 apply a thin layer to the affected area(s) by topical route 2 times per day Zocor 20 mg oral tablet take 1 tablet (20 mg) by oral route once daily in the evening gabapentin 300 mg oral capsule 03/19/2018 09/15/2018 take 1 capsule by oral route 2 times a day for 90 days amlodipine 10 mg oral tablet 04/20/2018 TAKE 1 TABLET BY MOUTH ONCE DAILY Name Start Date [...] 2 times per day for 7 days hydroxyzine HCl 25 mg oral tablet 03/19/2018 04/18/2018 take 1 tablet (25 mg ) by oral route 4 times per day as needed for 30 days Discontinued Name Start Date [...] Reviewed 10/23/2011 12:00 AM Decadron 1 mg [facility]#[id number] (Negro) Reviewed 10/23/2011 12:00 AM Depo-Medrol 80 mg [facility]#[id number] Reviewed 12/03/2011 12:00 AM MAMMOGRAM SCREENING Reviewed [...] Reviewed 07/06/2009 12:00 AM Decadron Inj. 8mg [facility] #[address]-15 Reviewed 07/06/2009 12:00 AM Depo-Medrol 80 mg IM [facility]# [address]-77 Reviewed 09/15/2014 2:34 PM URINALYSIS AUTO W/O [...] VERIFIED BY REPEAT ANALYSIS DATE/TIME CALLED: 07-31-09 [phone] [facility] READ BACK BY: ALEISHA @ DR. [...] Mellitus, Type II Mar 19 2018 10:38AM Jaundice May 18 2018 11:18AM Payers Insurance Name Company Name Plan Name Plan Number Policy Number Policy Group Number Start Date [facility] - Community Plan [facility] RHC Comm [id number] N/A [facility] Comm Plan of [id number] N/A [place] [employer] [place] [employer] [place] Prog [id number] N/A [facility] [id number] N/A [employer] [id number] N/A [employer] Financial Assistance [employer] Financial [place] [id number] N/A [facility] [place] [facility] [id number] N/A History of Encounters Visit Date Visit Type Provider 03/19/2018 Office visit Ronnie Tom DO 01/28/2018 Office visit Regi Foster BODY MECHANIC APPRENTICE 01/15/2018 Office visit Ronnie Tom DO 01/01/2018 Office visit Ronnie Tom DO 11/24/2017 Office visit Ronnie Tom DO 10/22/2017 [facility] Collins Mcclelland MD 09/12/2017 [facility] Collins Mcclelland MD 08/20/2017 Office visit Kash Albarran DO 07/20/2017 [facility] Amari Lazo MD 07/19/2017 [facility] Collins Mcclelland MD 07/14/2017 Surgery Zara Victor MD 06/12/2017 Office visit Zara Victor MD 06/04/2017 Hospital Collins Mcclelland MD 05/09/2017 [facility] Lalito Corado MD 05/08/2017 [facility] Collins Mcclelland MD 02/24/2016 Office visit Aleisha Childs BODY MECHANIC APPRENTICE 10/18/2015 Office visit Ronnie Tom DO 09/15/2014 [...] Tom DO 04/08/2013 Office visit Mack Cortes BODY MECHANIC APPRENTICE 04/07/2013 [facility] DO 03/31/2013 [facility] DO 03/31/2013 Office visit Regi Cristian BODY MECHANIC APPRENTICE 12/01/2012 Office visit Regi Cristian BODY MECHANIC APPRENTICE 03/18/2012 Office visit Ronnie Tom DO 01/06/2012 Office visit Ronnie Tom DO 01/02/2012 Office visit Lorraine Jessica BODY MECHANIC APPRENTICE 12/03/2011 Office visit Ronnie Tom DO 10/23/2011 Office visit Regi Foster BODY MECHANIC APPRENTICE 05/28/2011 Office visit Ronnie Tom DO 05/16/2011 [...]
--- OUTSIDE RECORDS SUMMARY | 2018-05-22 09:12 | XMS REPORT ---
Author Author Ronnie Tom [facility] Address [address] [place], [place] [address] Care Team Providers Care [place]ime [place] Worker Helper Name Role Phone Ronnie Tom PCP Ronnie [...] 10/23/2011 12:00 AM Decadron 1 mg [facility]#[id number] (Negro) Reviewed 10/23/2011 12:00 AM Depo-Medrol 80 mg [facility]#[id number] Reviewed 12/03/2011 12:00 AM MAMMOGRAM SCREENING Reviewed [...] 12:00 AM Decadron Inj. 8mg [facility] #[address]-75 Reviewed 07/06/2009 12:00 AM Depo-Medrol 80 mg IM [facility]# [address]-20 Reviewed 09/15/2014 2:34 PM URINALYSIS AUTO W/O [...] VERIFIED BY REPEAT ANALYSIS DATE/TIME CALLED: 07-31-09 [phone] [facility] READ BACK BY: ALEISHA @ [...] Policy Number Policy Group Number Start Date [facility] - Community Plan [facility] RHC Comm [id number] N/A [facility] Comm Plan of [id number] N/A [place] [employer] [place] [employer] Prog [id number] N/A [facility] [id number] N/A [employer] [id number] N/A [employer] [place] [id number] N/A [facility] [place] [facility] ONLY [facility] [id number] N/A History of Encounters Visit Date Visit Type Provider 03/19/2018 Office visit Ronnie Tom DO 01/28/2018 Office visit Regi Foster SPLINE ROLLING MACHINE JOB SETTER 01/15/2018 Office visit Ronnie Tom DO 01/01/2018 Office visit Ronnie Tom DO 11/24/2017 Office visit Ronnie Tom DO 10/22/2017 [facility] Collins Mcclelland MD 09/12/2017 [facility] Collins Mcclelland MD 08/20/2017 Office visit Kash Albarran DO 07/20/2017 [facility] Amari Lazo MD 07/19/2017 [facility] Collins Mcclelland MD 07/14/2017 Surgery Zara Victor MD 06/12/2017 Office visit Zara Victor MD 06/04/2017 Hospital Collins Mcclelland MD 05/09/2017 [facility] Lalito Corado MD 05/08/2017 [facility] Collins Mcclelland MD 02/24/2016 Office visit Aleisha Childs SPLINE ROLLING MACHINE JOB SETTER 10/18/2015 Office visit Ronnie Tom DO 09/15/2014 [...] Tom DO 04/08/2013 Office visit Mack Cortes SPLINE ROLLING MACHINE JOB SETTER 04/07/2013 [facility] DO 03/31/2013 [facility] DO 03/31/2013 Office visit Regi Cristian SPLINE ROLLING MACHINE JOB SETTER 12/01/2012 Office visit Regi Cristian SPLINE ROLLING MACHINE JOB SETTER 03/18/2012 Office visit Ronnie Tom DO 01/06/2012 Office visit Ronnie Tom DO 01/02/2012 Office visit Lorraine Jessica SPLINE ROLLING MACHINE JOB SETTER 12/03/2011 Office visit Ronnie Tom DO 10/23/2011 Office visit Regi Foster SPLINE ROLLING MACHINE JOB SETTER 05/28/2011 Office visit Ronnie Tom DO 05/16/2011 [...]
[2018-05-22] MEDS ORDERED: MOXIFLOXACIN OPHTH SOLN 5 MG/ML 0.3 ML SYRINGE OP ONE (09:15)
[2018-05-22] MEDS ORDERED: POVIDONE (BETADINE) OPHTH SOLN 5% 30 ML OP ONE (09:15)
[2018-05-22] MEDS ORDERED: TIMOLOL MALEATE 0.5% 5 ML (TIMOPTIC) BTL OU PRN (09:15)
[2018-05-22] MEDS ORDERED: LIDOCAINE PF 1% 2 ML AMP IR PRN (09:15)
[2018-05-22] MEDS: TETRACAINE 0.5% OPHTH SOLN 4 ML BTL (SINGLE DOSE ONLY) OU PRN ×4 (09:19→09:39)
[2018-05-22 09:22] VITALS: BP 159/89
[2018-05-22] MEDS: PHENYLEPHRINE 10% OPHTH (NEO-SYN) 5 ML BTL OU SCH ×3 (09:29→09:39)
[2018-05-22] MEDS: CYCLOPENTOLATE 1% (CYCLOGYL) 2 ML DROPS OP SCH ×3 (09:29→09:39)
[2018-05-22] MEDS ORDERED: MIDAZOLAM 2 MG/2 ML (VERSED) VIAL ONE (09:31)
--- NOTE | 2018-05-22 09:50 | Ophthalmologist Pre-Op Note ---
Pre-Operative Progress Note H&P Reviewed The H&P was reviewed, patient examined and no changes noted. Date H&P Reviewed: May 22, 2018 Time H&P Reviewed: 09:50 Pre-Op Dx Cataract, Left Eye MOSES ARMSTRONG MD May 22, 2018 09:50
--- OUTSIDE RECORDS SUMMARY | 2018-05-22 10:14 | XMS REPORT | Continuity of Care Document ---
Author Author [facility] Organization [facility] Address Unknown Phone Unavailable Allergies Active Description Code Type Severity Reaction Onset Reported/Identified Relationship to Patient Clinical Status Yes PENICILLIN [id number] CLASS N/A N/A Yes PENICILLINS (CLASS) [id number] CLASS N/A N/A Yes PHENERGAN [id number] BRANDNAME N/ A N/A Yes codeine Drug Allergy Unknown N/A 12/24/2017 Yes penicillin Drug Allergy Unknown N/A 12/24/2017 Yes Phenergan Drug Allergy Unknown N/A 12/24/2017 Yes amoxicillin amoxicillin Drug Allergy Unknown UNKNOWN 03/02/2018 Yes codeine codeine Drug Allergy Unknown UNKNOWN 03/02/2018 Yes Penicillins Penicillins Drug Allergy Unknown UNKNOWN 03/02/2018 Yes promethazine promethazine Drug Allergy Unknown UNKNOWN 03/02/2018 Yes codeine [id number] Drug Allergy Unknown N/A 05/12/2018 Yes Penicillins [id number] Drug Allergy Unknown N/A 05/12/2018 Yes promethazine [id number] Drug Allergy Unknown N/A 05/12/2018 Medications Medication Packaging Start Date Stop Date [...] ENCOUNTER 12/12/2016 DOUGLAS GÓMEZ MD Ot Z79.4 CREDIT ADJUSTER (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 INSULIN 12/12/2016 DOUGLAS GÓMEZ MD Ot Z79.84 DETENTION (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 ORAL HYPOGLYC 12/12/2016 DOUGLAS [...] NEETU 01/14/2017 ALBARO DYER MD Ot Z79.4 DETENTION (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 INSULIN 01/14/2017 ALBARO DYER MD Ot Z79.82 DETENTION (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 ASPIRIN 01/14/2017 ALBARO DYER MD Ot Z79.84 DETENTION (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 ORAL HYPOGLYC 01/14/2017 ALBARO [...] NEETU 01/16/2017 ALBARO DYER MD Ot Z79.82 DETENTION (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 ASPIRIN 01/16/2017 ALBARO DYER MD Ot Z79.84 DETENTION (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 ORAL HYPOGLYC 01/16/2017 ALBARO [...] ENCOUNTER 01/16/2017 DOUGLAS GÓMEZ MD Ot Z79.4 DETENTION (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 INSULIN 01/16/2017 DOUGLAS GÓMEZ MD Ot Z79.84 DETENTION (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 ORAL HYPOGLYC 01/16/2017 DOUGLAS GÓMEZ MD Ot Z87.81 PERSONAL HISTORY OF (HEALED) TRAUMATIC F 01/16/2017 DOUGLAS GÓMEZ MD Ot Z91.81 HISTORY OF FALLING 06/08/2017 P I639 Cerebral infarction, unspecified 06/08/2017 S I03746 Unspecified symptoms and signs involving cognitive functions following unspecified cerebrovascular disease 06/08/2017 S R2689 Other abnormalities of gait and mobility 06/08/2017 S R531 Weakness 06/09/2017 P I639 Cerebral infarction, unspecified 06/09/2017 S X14618 Unspecified symptoms and signs involving cognitive functions following unspecified cerebrovascular disease 06/09/2017 S R2689 Other abnormalities of gait and mobility 06/09/2017 S R531 Weakness 07/21/2017 S D638 Anemia in other chronic diseases classified elsewhere 07/21/2017 P 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 with [...] N179 Acute kidney failure, unspecified 07/21/2017 S [id number] Adverse effect of insulin and oral hypoglycemic [antidiabetic] drugs, initial encounter 07/21/2017 S Z590 Homelessness 07/21/2017 S Z7982 senior care ( current) use of aspirin 07/21/2017 S Z7984 senior care ( current) use of oral hypoglycemic drugs 07/21/2017 S F76546 Other long term care pharmacist (current) drug therapy 07/21/2017 S Z8673 Personal history of transient ischemic attack (TIA), and cerebral infarction without residual deficits 07/21/2017 S Z880 Allergy status to penicillin 07/27/2017 S D649 Anemia, unspecified 07/27/2017 P E67222 Type 2 diabetes mellitus with hypoglycemia without coma 07/27/2017 S N179 Acute kidney failure, unspecified 07/27/2017 S Z7984 senior care ( current) use of oral hypoglycemic drugs 09/22/2017 S E1140 Type 2 diabetes mellitus with diabetic neuropathy, unspecified 09/22/2017 P H23412 Type 2 diabetes mellitus with foot ulcer 09/22/2017 S N42776 Non-pressure chronic ulcer of other part of right foot limited to breakdown of skin 09/22/2017 S Z720 Tobacco use 09/22/2017 S 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 10/11/2017 P G4733 Obstructive sleep apnea (adult) (pediatric) 10/11/2017 S I10 Essential ( primary) hypertension 10/16/2017 S E1142 Type 2 diabetes mellitus with diabetic polyneuropathy 10/16/2017 P B21837 Type 2 diabetes mellitus with foot ulcer 10/16/2017 S E1165 Type 2 diabetes mellitus with hyperglycemia 10/16/2017 S Y22943 Nicotine dependence, cigarettes, with other nicotine-induced disorders 10/16/2017 S L08832 Atherosclerosis of [place] arteries of extremities with intermittent claudication , right leg 10/16/2017 S B34787 Non-pressure chronic ulcer of other part of [...] mononeuropathy of bilateral lower limbs 02/03/2018 S X87349 Unspecified symptoms and signs involving cognitive functions following cerebral infarction 02/03/2018 P P34126 Hemiplegia and hemiparesis following cerebral infarction affecting right dominant side 02/25/2018 P M18252 Atherosclerosis of [place] arteries of extremities with intermittent claudication , [...] stage 4 (severe) DIANDRA TERRY I 03/10/2018 DIANDRA, TERRY I N25.81 Secondary hyperparathyroidism of renal origin TERRY JIM I 03/16/2018 S G5793 Unspecified mononeuropathy of bilateral lower limbs 03/16/2018 S R85006 Unspecified symptoms and signs involving cognitive functions following cerebral infarction 03/16/2018 P E07540 Hemiplegia and hemiparesis following cerebral infarction affecting right dominant side 04/28/2018 S I10 Essential ( primary) hypertension 04/28/2018 P W89979 Atherosclerosis of [place] arteries of right leg with ulceration of other part of foot 05/12/2018 MOSES ARMSTRONG MD Ot Z01.818 ENCOUNTER FOR OTHER PREPROCEDURAL EXAMIN 05/13/2018 MOSES ARMSTRONG MD, Ot Z01.818 ENCOUNTER FOR OTHER PREPROCEDURAL EXAMIN 05/13/2018 MOSES ARMSTRONG MD, Ot Z01.818 ENCOUNTER FOR OTHER PREPROCEDURAL EXAMIN 05/13/2018 MOSES ARMSTRONG MD Ot E11.36 TYPE 2 DIABETES MELLITUS WITH DIABETIC C 05/13/2018 MOSES ARMSTRONG MD, Ot E11.43 TYPE 2 DIABETES W DIABETIC AUTONOMIC (PO 05/13/2018 MOSES ARMSTRONG MD, Ot F17.200 NICOTINE DEPENDENCE, UNSPECIFIED, UNCOMP 05/13/2018 MOSES ARMSTRONG MD, Ot H25.11 AGE-RELATED NUCLEAR CATARACT, RIGHT EYE 05/13/2018 MOSES ARMSTRONG MD, Ot I10 ESSENTIAL (PRIMARY) HYPERTENSION 05/13/2018 MOSES ARMSTRONG MD Ot 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 05/13/2018 MOSES ARMSTRONG MD, Ot I69.351 HEMIPLGA FOLLOWING CEREBRAL INFRC AFF RI 05/13/2018 MOSES ARMSTRONG MD, Ot K21.9 GASTRO-ESOPHAGEAL REFLUX DISEASE WITHOUT 05/13/2018 MOSES ARMSTRONG MD, Ot N28.9 DISORDER OF KIDNEY AND URETER, UNSPECIFI 05/13/2018 MOSES ARMSTRONG MD, Ot Z79.02 CREDIT ADJUSTER (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 ANTITHROMBOTI 05/13/2018 MOSES ARMSTRONG MD, Ot Z79.4 DETENTION (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 INSULIN 05/13/2018 ANLIKER MD, MOSES L Ot Z79.82 DETENTION (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 ASPIRIN 05/13/2018 MOSES ARMSTRONG MD, Ot Z79.899 OTHER DETENTION (CURRENT) DRUG THERAPY 05/18/2018 MOSES ARMSTRONG MD, Ot E11.36 TYPE 2 DIABETES MELLITUS WITH DIABETIC C 05/18/2018 MOSES ARMSTRONG MD, Ot E11.43 TYPE 2 DIABETES W DIABETIC AUTONOMIC (PO 05/18/2018 MOSES ARMSTRONG MD, Ot F17.200 NICOTINE DEPENDENCE, UNSPECIFIED, UNCOMP 05/18/2018 MOSES ARMSTRONG MD, Ot H25.11 AGE-RELATED NUCLEAR CATARACT, RIGHT EYE 05/18/2018 MOSES ARMSTRONG MD, Ot I10 ESSENTIAL (PRIMARY) HYPERTENSION 05/18/2018 MOSES ARMSTRONG MD, Ot 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 05/18/2018 MOSES ARMSTRONG MD, Ot I69.351 HEMIPLGA FOLLOWING CEREBRAL INFRC AFF RI 05/18/2018 MOSES ARMSTRONG MD, Ot K21.9 GASTRO-ESOPHAGEAL REFLUX DISEASE WITHOUT 05/18/2018 MOSES ARMSTRONG MD, Ot N28.9 DISORDER OF KIDNEY AND URETER, UNSPECIFI 05/18/2018 MOSES ARMSTRONG MD, Ot Z79.02 CREDIT ADJUSTER (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 ANTITHROMBOTI 05/18/2018 MOSES ARMSTRONG MD Ot Z79.4 DETENTION (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 INSULIN 05/18/2018 MOSES ARMSTRONG MD, Ot Z79.82 CREDIT ADJUSTER (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 ASPIRIN 05/18/2018 MOSES ARMSTRONG MD, Ot Z79.899 OTHER CREDIT ADJUSTER (CURRENT) DRUG THERAPY 05/20/2018 MOSES ARMSTRONG MD, Ot Z01.818 ENCOUNTER FOR OTHER PREPROCEDURAL EXAMIN 05/21/2018 MOSES ARMSTRONG MD, Ot Z01.818 ENCOUNTER FOR OTHER PREPROCEDURAL EXAMIN Procedures Code [place] [address] Office or other outpatient visit for the evaluation and management of a new patient, which requires TERRY JIM I 01/01/2018 47376 Office or other outpatient visit for the evaluation and management of an established patient, which TERRY JIM I 03/10/2018 20840 Office or other outpatient visit for the [...] culture - 12/12/16 22:25 Bacterial urine culture [id number] NRG COLONY COUNT >100,000/ML NRG FTX;REPORTABLE SENSITIVITY [...] minimum inhibitory concentration - NRG Microalb/Creat Ratio, [facility] Ur - 12/25/16 17:23 Creatinine, [...] culture - 01/14/17 17:17 Bacterial urine culture [id number] NRG COLONY COUNT >100,000/ML NRG FTX;REPORTABLE SENSITIVITY [...] 11.3 fL 7.5-12.5 ABSOLUTE NEUTROPHILS 4862 cells/uL 3054-8085 ABSOLUTE LYMPHOCYTES 1730 cells/uL 850-3900 ABSOLUTE MONOCYTES [...] measurement by glucometer (mass/volume) 109 mg/dL 70-110 Capillary blood glucose measurement by glucometer (mass/volume) - 05/22/18 09: 38 Capillary blood glucose measurement by glucometer (mass/volume) 105 mg/dL 70-110 Encounters ACCT No. Visit Date/Time Discharge Status Pt. Type Provider Facility Loc./Unit Complaint [id number] 03/19/2018 11:13:27 03/19/2018 23:59:59 CLS Outpatient Ronnie Tom [id number] 01/01/2018 15:05:28 01/01/2018 23:59:59 CLS Outpatient Ronnie Tom [id number] 12/01/2017 10:09:14 12/01/2017 23:59:59 CLS Outpatient Ronnie Tom [id number] 11/20/2017 16:52:56 11/20/2017 23:59:59 CLS Outpatient Collins Mcclelland [id number] 10/09/2017 17:03:54 10/09/2017 23:59:59 CLS Outpatient Collins Mcclelland [id number] 08/20/2017 15:18:16 08/20/2017 23:59:59 CLS Outpatient AlbarranKash [id number] 08/07/2017 11:26:55 08/07/2017 23:59:59 CLS Outpatient Collins Mcclelland [id number] 07/24/2017 13:47:49 07/24/2017 23:59:59 CLS Outpatient Amari Lazo [id number] 07/17/2017 15:19:24 07/17/2017 23:59:59 CLS Outpatient Collins Mcclelland Dano [id number] 07/16/2017 11:56:11 07/16/2017 23:59:59 CLS Outpatient Zara Victor S [id number] 06/12/2017 10:10:29 06/12/2017 23:59:59 CLS Outpatient Zara Victor [id number] 06/05/2017 14:35:39 06/05/2017 23:59:59 CLS Outpatient Collins Mcclelland Dano [id number] 05/20/2017 10:14:56 05/20/2017 23:59:59 CLS Outpatient Corado Lalito [id number] 02/24/2016 13:04:10 02/24/2016 23:59:59 CLS Outpatient Amadeo Aleisha [id number] 09/15/2014 11:06:23 09/15/2014 23:59:59 CLS Outpatient NegroRonnie harper [id number] 07/06/2014 09:49:06 07/06/2014 23:59:59 CLS Outpatient NegroRonnie harper [id number] 02/10/2014 09:58:55 02/10/2014 23:59:59 CLS Outpatient NegroRonnie harper [id number] 12/28/2013 10:36:41 12/28/2013 23:59:59 CLS Outpatient NegroRonnie harper [id number] 11/03/2013 10:56:17 11/03/2013 23:59:59 CLS Outpatient NegroRonnie harper [id number] 08/27/2013 10:52:02 08/27/2013 23:59:59 CLS Outpatient NegroRonnie harper [id number] 08/19/2013 12:27:19 08/19/2013 23:59:59 CLS Outpatient Kya Tay [id number] 07/29/2013 15:31:24 07/29/2013 23:59:59 CLS Outpatient NegroRonnie harper [id number] 07/12/2013 16:35:19 07/12/2013 23:59:59 CLS Outpatient NegroRonnie harper [id number] 07/05/2013 10:11:02 07/05/2013 23:59:59 CLS Outpatient Regi Foster [id number] 07/05/2013 10:10:41 07/05/2013 23:59:59 CLS Outpatient Ronnie Tom [id number] 07/05/2013 10:10:01 07/05/2013 23:59:59 CLS Outpatient Kya Tay [id number] 07/05/2013 10:09:20 07/05/2013 23:59:59 CLS Outpatient Ronnie Tom [id number] 05/10/2017 11:05:00 Document Registration [id number] 05/21/2018 09:15:00 05/21/2018 09:26:00 DIS Outpatient MOSES ARMSTRONG MD Via [facility] PREOP CATARACT LEFT EYE [id number] 05/13/2018 09:23:00 05/13/2018 11:05:00 DIS Outpatient MOSES ARMSTRONG MD [facility] CATARACT RIGHT EYE [id number] 05/12/2018 06:03:00 05/12/2018 13:51:00 DIS Outpatient MOSES ARMSTRONG MD [facility] PREOP CATARACT RIGHT EYE [id number] 01/14/2017 16:10:00 01/14/2017 18:05:00 DIS Emergency ALBARO DYER MD [facility] ER DIZZY, HIGH BP, LOW SUGAR [id number] 12/12/2016 20:56:00 12/12/2016 23:31:00 DIS Emergency DOUGLAS GÓMEZ MD [facility] ER RT ANKLE PAIN [id number] 05/22/2018 09:06:00 ACT Outpatient MOSES ARMSTRONG MD [facility] CATARACT LEFT EYE [id number] 12/26/2016 11:07:00 Document Registration [id number] 03/17/2018 15:20:00 03/17/2018 20:59:00 DIS Emergency Arlet VYAS, Lj Guallpa [facility] W.EDS [id number] 03/02/2018 07:12:00 03/02/2018 11:21:00 DIS Outpatient Dev VYAS, Toby Neely [facility] W.OPRA [id number] 11/14/2017 14:00:00 11/14/2017 23:59:[address] [facility] CHRIS Mcfadden [id number] 07/31/2017 15:00:00 Document Registration [id number] 05/28/2017 15:20:00 Document Registration [id number] 12/26/2016 08:07:00 Document Registration [id number] 01/09/2017 15:08:00 Document Registration [id number] 05/19/2018 09:58:40 Document Registration [id number] 03/09/2018 11:28:09 Document Registration [id number] 03/04/2018 15:18:32 Document Registration [id number] 02/25/2018 10:18:22 Document Registration [id number] 01/30/2018 14:13:50 Document Registration [id number] 01/05/2018 09:27:58 Document Registration [id number] 01/01/2018 14:59:12 Document Registration [id number] 12/02/2017 13:56:08 Document Registration [id number] 12/02/2017 10:28:01 Document Registration [id number] 11/25/2017 11:04:48 Document Registration [id number] 11/24/2017 10:53:56 Document Registration [id number] 11/18/2017 13:37:57 Document Registration [id number] 11/17/2017 11:19:04 Document Registration [id number] 11/17/2017 11:15:10 Document Registration [id number] 11/11/2017 15:01:23 Document Registration [id number] 11/11/2017 14:59:35 Document Registration [id number] 11/11/2017 13:12:35 Document Registration [id number] 11/05/2017 10:05:25 Document Registration [id number] 10/29/2017 08:52:37 Document Registration [id number] 10/27/2017 08:23:07 Document Registration [id number] 10/22/2017 18:43:22 Document Registration [id number] 10/22/2017 13:25:12 Document Registration [id number] 10/15/2017 08:08:11 Document Registration [id number] 10/01/2017 08:37:42 Document Registration [id number] 09/25/2017 10:28:09 Document Registration [id number] 09/24/2017 10:12:51 Document Registration [id number] 09/23/2017 08:15:21 Document Registration [id number] 09/22/2017 01:04:13 Document Registration [id number] 09/22/2017 00:58:53 Document Registration [id number] 09/12/2017 11:38:10 Document Registration [id number] 09/12/2017 11:35:20 Document Registration [id number] 09/08/2017 10:12:14 Document Registration [id number] 09/07/2017 20:26:41 Document Registration [id number] 09/07/2017 20:19:09 Document Registration [id number] 09/01/2017 09:01:29 Document Registration [id number] 08/26/2017 08:21:45 Document Registration [id number] 08/19/2017 09:19:52 Document Registration [id number] 08/07/2017 09:36:22 Document Registration [id number] 08/01/2017 10:21:57 Document Registration [id number] 08/01/2017 09:24:40 Document Registration [id number] 07/19/2017 18:31:04 Document Registration [id number] 07/19/2017 18:14:36 Document Registration [id number] 06/26/2017 09:54:51 Document Registration [id number] 06/12/2017 15:52:19 Document Registration [id number] 06/09/2017 11:52:50 Document Registration [id number] 06/07/2017 09:28:20 Document Registration [id number] 06/07/2017 08:48:05 Document Registration [id number] 06/05/2017 00:57:16 Document Registration [id number] 06/04/2017 18:43:25 Document Registration [id number] 05/30/2017 13:16:30 Document Registration [id number] 05/20/2017 14:45:44 Document Registration [id number] 05/20/2017 13:41:51 Document Registration [id number] 05/13/2017 14:17:44 Document Registration [id number] 05/08/2017 18:15:20 Document Registration [id number] 05/08/2017 17:31:53 Document Registration [id number] 05/07/2017 19:11:12 Document Registration [id number] 05/07/2017 18:57:29 Document Registration [id number] 03/10/2018 16:45:05 03/10/2018 23:59:59 [facility] TERRY JIM I
--- NOTE | 2018-05-22 10:20 | Ophthalmology Operative Report ---
Cataract removal/placement IOL PREOPERATIVE DIAGNOSIS: Cataract Left Eye POSTOPERATIVE DIAGNOSIS: Cataract Left Eye PROCEDURE: Cataract removal and placement of posterior chamber implant, left eye SURGEON: Jono Armstrong ANESTHESIA: Topical with sedation COMPLICATIONS: None ESTIMATED BLOOD LOSS: Minimal DESCRIPTION OF PROCEDURE: After proper informed consent was obtained, the patient, a 52 female, was taken to the Operating Room and the left eye was anesthetized with tetracaine. The left eye was then prepped and draped in the usual manner. A wire lid speculum was placed. A paracentesis was made at the left hand position. Preservative free lidocaine was injected into the anterior chamber followed by viscoelastic. A clear corneal incision was made in the temporal position. A capsulorrhexis was preformed and the central nuclear and cortical material were removed. The posterior capsule was polished and an Julio 25.0 [id number] was placed into the capsular bag. The residual viscoelastic was aspirated and balanced saline solution was injected into the anterior chamber. Moxifloxacin was injected into the anterior chamber. The wound was checked and found to be water tight. The patient tolerated the procedure well without complications. JONO ARMSTRONG MD May 22, 2018 10:20
[2018-05-22] MEDS ORDERED: acetaZOLAMIDE ER 500 MG CAP (DIAMOX SEQUELS) PO ONE (10:30)
[2018-05-22 10:32] VITALS: BP 129/86
--- NOTE | 2018-05-22 13:36 | Anesthesia-General Post-Op ---
MAC Patient Condition Mental Status/LOC: Same as Preop Cardiovascular: Satisfactory Nausea/Vomiting: Absent Respiratory: Satisfactory Pain: Controlled Complications: Absent Post Op Complications Complications None Follow Up Care/Instructions Patient Instructions None needed. Anesthesiology Discharge Order Discharge Order Patient is doing well, no complaints, stable vital signs, no apparent adverse anesthesia problems. No complications reported per nursing. DANE HUDSON CRNA May 22, 2018 13:36
== END 2018-05-22 10:40 | disposition home or self-care (01) ==
LOC: SDC 09:06
PROVIDERS: ATTEND Specialist
DX: H25.12 Age-related nuclear cataract, left eye (principal); E11.36 Type 2 diabetes mellitus with diabetic cataract; E11.43 Type 2 diabetes mellitus with diabetic autonomic (poly)neuropathy; I10 Essential (primary) hypertension; N28.9 Disorder of kidney and ureter, unspecified; K21.9 Gastro-esophageal reflux disease without esophagitis; I69.351 Hemiplegia and hemiparesis following cerebral infarction affecting right dominant side; I69.311 Memory deficit following cerebral infarction; F17.210 Nicotine dependence, cigarettes, uncomplicated; Z79.02 Long term (current) use of antithrombotics/antiplatelets; Z79.4 Long term (current) use of insulin; Z79.82 Long term (current) use of aspirin; Z79.899 Other long term (current) drug therapy
CPT/HCPCS: 82962